=== PATIENT | female | born 1940 | race Caucasian/White ===

== ENCOUNTER → 2017-12-18 09:11 | Outpatient (CLI) | payer MEDICARE, SELFPAY ==
[2017-12-18 11:24] LABS: Absolute Lymphocyte Count 2.09 X10^3/ul (0.83-4.51); Absolute Neutrophil Count 4.2 X10^3/uL (2.0-7.7); Basophil# 0.02 X10^3/uL; Basophil% 0.3 % (0-1); Eosinophil# 0.42 X10^3/uL; Eosinophils% 5.7 % (0-5); Hemoglobin 11.7 g/dl (12.0-15.0); Lymphocyte # 2.09 X10^3/ul (4.0); Lymphocyte % 28.5 % (19-41); Mean Corp Hgb Conc 32.5 g/gl (32-36); Mean Corpuscular Hgb 32.4 pg (27.0-32.0); Mean Corpuscular Volume 99.7 fL (81-99); Mean Platelet Vol. 9.1 fl (6.2-12.0); Monocyte% 8.2 % (0-10); Neutrophil % 57.2 % (47-70); Platelet Count 256 K/mm3 (150-450); RBC Distribution Width CV 13.7 % (11.6-14.6); RBC Distribution Width SD 48.5 fl (35.1-43.9); Red Blood Count 3.61 M/mm3 (4.2-5.4); White Blood Count 7.3 K/mm3 (4.4-11.0)
[2017-12-18 11:26] LABS: POSITIVE COUNT NO; POSITIVE DIFFERENTIAL NO; POSITIVE MORPHOLOGY NO
[2017-12-18 11:51] LABS: ALB/GLOB Ratio 0.9 RATIO (0.9-2.4); AST(SGOT) 20 U/L (15-37); Alanine Aminotransfer ALT/SGPT 24 U/L (13-56); Albumin, Serum 3.7 g/dL (3.2-5.0); Alkaline Phosphatase 114 U/L (45-117); Anion Gap 9 (5-15); BUN 26 mg/dL (7-18); BUN/Creat Ratio 25.7 RATIO (10-20); Calcium,Total 8.9 mg/dL (8.5-10.1); Chloride 101 mmol/L (98-107); Creatinine, Serum 1.01 mg/dL (0.55-1.02); EST Glomerular Filtration Rate 57 mL/min (>60); Est Glom Filt Rate - Afr Amer 69 mL/min (>60); Globulin 3.9 g/dL (2.2-4.2); Glucose 123 mg/dL (70-110); Potassium 3.8 mmol/L (3.5-5.1); Protein, Total 7.6 g/dL (6.4-8.2); Sodium Level 137 mmol/L (136-145)
== END ==
PROVIDERS: Family Provider Family Medicine; PCP Family Medicine; Visit Provider Internal Medicine Rheumatology
DX: L40.59 Other psoriatic arthropathy (principal); L40.8 Other psoriasis; M17.0 Bilateral primary osteoarthritis of knee; M21.40 Flat foot [pes planus] (acquired), unspecified foot; I42.9 Cardiomyopathy, unspecified; I10 Essential (primary) hypertension; E78.5 Hyperlipidemia, unspecified; E03.9 Hypothyroidism, unspecified
CPT/HCPCS: 36415; 80053; 85025

== ENCOUNTER → 2018-03-20 16:08 | Outpatient (CLI) | payer MEDICARE, SELFPAY ==
[2018-03-20 16:37] LABS: Absolute Lymphocyte Count 2.24 X10^3/ul (0.83-4.51); Absolute Neutrophil Count 4.5 X10^3/uL (2.0-7.7); Basophil# 0.02 X10^3/uL; Basophil% 0.3 % (0-1); Eosinophil# 0.38 X10^3/uL; Eosinophils% 4.8 % (0-5); Hemoglobin 12.2 g/dl (12.0-15.0); Lymphocyte # 2.24 X10^3/ul (4.0); Lymphocyte % 28.5 % (19-41); Mean Corpuscular Hgb 32.4 pg (27.0-32.0); Mean Corpuscular Volume 98.1 fL (81-99); Mean Platelet Vol. 8.8 fl (6.2-12.0); Monocyte# 0.69 X10^3/uL; Monocyte% 8.8 % (0-10); Neutrophil # 4.51 X10^3/uL (2.7-7.7); Neutrophil % 57.5 % (47-70); POSITIVE COUNT NO; POSITIVE DIFFERENTIAL NO; POSITIVE MORPHOLOGY NO; Platelet Count 231 K/mm3 (150-450); RBC Distribution Width CV 13.3 % (11.6-14.6); RBC Distribution Width SD 47.8 fl (35.1-43.9); Red Blood Count 3.77 M/mm3 (4.2-5.4); White Blood Count 7.9 K/mm3 (4.4-11.0)
[2018-03-20 16:56] LABS: AST(SGOT) 25 U/L (15-37); Alanine Aminotransfer ALT/SGPT 27 U/L (13-56); Albumin, Serum 3.8 g/dL (3.2-5.0); Alkaline Phosphatase 109 U/L (45-117); Anion Gap 8 (5-15); BUN 30 mg/dL (7-18); BUN/Creat Ratio 26.5 RATIO (10-20); Calcium,Total 8.9 mg/dL (8.5-10.1); Chloride 98 mmol/L (98-107); Cholesterol 96 mg/dL (200); Creatinine, Serum 1.13 mg/dL (0.55-1.02); EST Glomerular Filtration Rate 50 mL/min (>60); Est Glom Filt Rate - Afr Amer 60 mL/min (>60); Globulin 3.8 g/dL (2.2-4.2); Glucose 91 mg/dL (74-106); High Density Lipoprotein 43 mg/dL; Protein, Total 7.6 g/dL (6.4-8.2); Sodium Level 136 mmol/L (136-145); Thyroid Stim Hormone (TSH) 1.88 uIU/mL (0.358-3.74); Triglycerides 61 mg/dL; Very Low Density Lipoprotein 12 mg/dL (5-40)
== END ==
PROVIDERS: Family Provider Family Medicine; PCP Family Medicine; Visit Provider Family Medicine
DX: E03.9 Hypothyroidism, unspecified (principal); E78.5 Hyperlipidemia, unspecified; I10 Essential (primary) hypertension; K92.1 Melena
CPT/HCPCS: 80053; 80061; 84443; 85025

== ENCOUNTER → 2018-09-25 10:28 | Outpatient (CLI) | payer MEDICARE, SELFPAY ==
--- NOTE | 2018-09-25 10:48 | RAD_ITS ---
STUDY: X-RAY - LUMBAR SPINE REASON FOR EXAM: Female, 78 years old. Low back pain TECHNIQUE: 2 view(s) of the lumbar spine were obtained. COMPARISON: None FINDINGS: Normal lumbar lordosis. There is a dextroscoliosis of the lumbar spine at the level of T12-L1. There is a normal alignment of the vertebrae. There is multilevel endplate spondylosis of the lumbar vertebrae. There is multi-level degenerative disc disease with multi-level disc space narrowing. There is multilevel vacuum phenomenon. There is neural foraminal narrowing at L5-S1. There is postoperative change in the right upper quadrant. There is partial visualization of a defibrillator overlying the heart. RAD/Lumbar Spine 2 or 3 Views IMPRESSION: Multilevel degenerative disc disease most significant at L5-S1. Mild dextroscoliosis. Electronically Signed: Leelee Sawyer MD at 0:13 EST Tel , Service support ,
== END ==
PROVIDERS: Family Provider Family Medicine; PCP Family Medicine; Referring Provider Anesthesiology Pain Medicine; Visit Provider Anesthesiology Pain Medicine
DX: M54.9 Dorsalgia, unspecified (principal)
CPT/HCPCS: 72100

== ENCOUNTER → 2018-10-09 11:12 | Outpatient (CLI) | payer MEDICARE, SELFPAY ==
[2018-07-13 09:42] VITALS: BMI 35.8
[2018-10-09 11:23] LABS: Bacteria 0 SEEN /hpf (None Seen); Mucous, Urine 0 SEEN /hpf (<or=2+); Red Blood Cells-Urine 0 SEEN /hpf (0-5); Squamous Epithelial Cells - UA 0 SEEN /hpf (5-10)
[2018-10-09 11:41] LABS: Color, Urine Yellow (Yellow); Glucose, Dipstick Normal (Normal); Ketone-Dipstick Negative (Negative); Leukocyte Esterase-Dipstick 25 /ul (Negative); Nitrite-Dipstick Negative (Negative); Occult Blood-Urine Negative /ul (Negative); Protein-Dipstick Negative (Negative); Specific Gravity, Urine 1.005 (1.002-1.030); Urine Bilirubin Dipstick Negative (Negative); Urine Clarity Clear (Clear); Urine Urobilinogen Normal (Normal)
[2018-10-09 11:48] LABS: Absolute Lymphocyte Count 2.35 X10^3/ul (0.83-4.51); Absolute Neutrophil Count 6.1 X10^3/uL (2.0-7.7); Basophil# 0.02 X10^3/uL; Basophil% 0.2 % (0-1); Eosinophil# 0.46 X10^3/uL; Eosinophils% 4.9 % (0-5); Hematocrit 37.1 % (37-47); Lymphocyte # 2.35 X10^3/ul (4.0); Lymphocyte % 24.8 % (19-41); Mean Corp Hgb Conc 32.3 g/gl (32-36); Mean Corpuscular Hgb 32.2 pg (27.0-32.0); Mean Corpuscular Volume 99.5 fL (81-99); Mean Platelet Vol. 8.9 fl (6.2-12.0); Monocyte# 0.51 X10^3/uL; Monocyte% 5.4 % (0-10); Neutrophil # 6.09 X10^3/uL (2.7-7.7); Neutrophil % 64.2 % (47-70); POSITIVE COUNT NO; POSITIVE DIFFERENTIAL NO; POSITIVE MORPHOLOGY NO; Platelet Count 266 K/mm3 (150-450); RBC Distribution Width CV 13.3 % (11.6-14.6); RBC Distribution Width SD 46.6 fl (35.1-43.9); Red Blood Count 3.73 M/mm3 (4.2-5.4); White Blood Cells 0-5 SEEN /hpf (0-5); White Blood Count 9.5 K/mm3 (4.4-11.0)
== END ==
PROVIDERS: PCP Family Medicine; Visit Provider Registered Nurse
DX: D72.829 Elevated white blood cell count, unspecified (principal)
CPT/HCPCS: 81001; 85025

== ENCOUNTER → 2018-12-04 12:47 | Outpatient (CLI) | payer MEDICARE, SELFPAY ==
[2018-10-31 14:16] VITALS: BMI 36.1
[2018-12-04 14:30] LABS: Anion Gap 6 (5-15); BUN 26 mg/dL (7-18); BUN/Creat Ratio 21.8 RATIO (10-20); Calcium,Total 8.8 mg/dL (8.5-10.1); Chloride 95 mmol/L (98-107); Creatinine, Serum 1.19 mg/dL (0.55-1.02); EST Glomerular Filtration Rate 47 mL/min (>60); Est Glom Filt Rate - Afr Amer 57 mL/min (>60); Glucose 98 mg/dL (74-106); Potassium 4.1 mmol/L (3.5-5.1); Sodium Level 131 mmol/L (136-145)
== END ==
PROVIDERS: Family Provider Family Medicine; PCP Family Medicine; Referring Provider Nurse Practitioner Family; Visit Provider Nurse Practitioner Family
DX: R06.02 Shortness of breath (principal); I43 Cardiomyopathy in diseases classified elsewhere
CPT/HCPCS: 36415; 80048

== ENCOUNTER → 2018-12-14 13:00 | Outpatient (CLI) | payer MEDICARE, SELFPAY ==
[2018-12-04 13:25] VITALS: BMI 36.1
--- NOTE | 2018-12-14 13:04 | ECHOD_ITS ---
Reason For Study: DYSPNEA/SOB Procedure This was a 2D Doppler, Color Flow transthoracic echocardiogram. Exam performed in department. Left Ventricle Normal LV size. Left ventricular systolic function is lower limits of normal. The estimated ejection fraction is 50 %. Stage 1 diastolic dysfunction. No regional wall motion abnormalities noted. Right Ventricle Normal RV size. ICD or pacer leads identified within the right ventricle. Normal systolic function. Atria Normal left atrium. Normal right atrium. Hypermobile atrial septum. Bubble contrast study negative for right to left interatrial shunt. Mitral Valve Normal mitral valve. Trivial eccentric mitral valve insufficiency. Tricuspid Valve Normal tricuspid valve. Mild (1+) tricuspid valve insufficiency. Pulmonary artery systolic pressure is 24 mmHg. Aortic Valve Trisinus/trileaflet aortic valve. Trivial eccentric aortic valve insufficiency. Pulmonic Valve The pulmonic valve is not well visualized. Great Vessels Calcified aortic root. The pulmonary artery is normal size. Normal inferior vena cava. Pericardium/Pleural No pericardial effusion. Medication 22 gauge I.V. with prn adaptor inserted into right arm. Performed a rapid injection of agitated mix of 9 cc saline and 1cc air to assess for atrial septal defect. MMode/2D Measurements & Calculations LVIDd: 5.5 cm IVSd: 1.0 cm Ao root diam: 3.9 cm LVIDs: 3.8 cm LVPWd: 1.00 cm RVDd: 3.3 cm FS: 31.1 % LAV(MOD-bp): 53.5 ml LA A4 area: 20.6 cm2 LA dimension(2D): 4.2 cm LAV(MOD-bp) Indexed: 27.5 ml/m2 LAV(MOD-sp2): 44.5 ml LAV(MOD-sp4): 63.0 ml RA A4 area: 15.6 cm2 Doppler Measurements & Calculations MV E max romario: 59.1 cm/sec Lat Peak E' Romario: 8.1 cm/sec Med Peak E' Romario: 6.1 cm/sec MV A max romario: 114.1 cm/sec E/E' lat: 7.3 E/E' med: 9.7 MV E/A: 0.52 Ao V2 max: 172.0 cm/sec AI max romario: 311.0 cm/sec LV V1 max: 128.1 cm/sec Ao max P.8 mmHg AI max P.7 mmHg LV V1 max P.6 mmHg AI dec slope: 187.5 cm/sec2 AI P1/2t: 485.9 msec PA V2 max: 97.9 cm/sec TR max romario: 225.3 cm/sec TR max P.3 mmHg Interpretation Summary Normal LV size. Left ventricular systolic function is lower limits of normal. The estimated ejection fraction is 50 %. Stage 1 diastolic dysfunction. Hypermobile atrial septum. Bubble contrast study negative for right to left interatrial shunt. Compared to previous study, the left ventricular systolic function is the same.. Ordering Physician: Jose Nunez Referring Physician: ANITA Barry M.D. Performed By: Florence Reagan RDCS, RVT
== END ==
PROVIDERS: Family Provider Family Medicine; PCP Family Medicine; Referring Provider Internal Medicine Cardiovascular Disease; Visit Provider Internal Medicine Cardiovascular Disease
DX: I42.0 Dilated cardiomyopathy (principal); Z95.810 Presence of automatic (implantable) cardiac defibrillator; I10 Essential (primary) hypertension
CPT/HCPCS: 93306; A4216

== ENCOUNTER → 2018-12-24 14:56 | Outpatient (CLI) | payer MEDICARE, SELFPAY ==
[2018-12-04 13:25] VITALS: BMI 36.1
[2018-12-24 15:56] LABS: Anion Gap 12 (5-15); BUN 25 mg/dL (7-18); BUN/Creat Ratio 22.1 RATIO (10-20); Chloride 97 mmol/L (98-107); Creatinine, Serum 1.13 mg/dL (0.55-1.02); EST Glomerular Filtration Rate 50 mL/min (>60); Est Glom Filt Rate - Afr Amer 60 mL/min (>60); Glucose 95 mg/dL (74-106); Potassium 4.3 mmol/L (3.5-5.1); Sodium Level 135 mmol/L (136-145)
== END ==
PROVIDERS: Family Provider Family Medicine; PCP Family Medicine; Referring Provider Nurse Practitioner Family; Visit Provider Nurse Practitioner Family
DX: I50.20 Unspecified systolic (congestive) heart failure (principal); I43 Cardiomyopathy in diseases classified elsewhere
CPT/HCPCS: 36415; 80048

== ENCOUNTER → 2019-01-14 13:45 | Outpatient (CLI) | payer MEDICARE, SELFPAY ==
[2019-01-14 13:02] VITALS: BMI 35.4
[2019-01-14 15:22] LABS: Anion Gap 10 (5-15); BUN 29 mg/dL (7-18); BUN/Creat Ratio 22.3 RATIO (10-20); Calcium,Total 8.8 mg/dL (8.5-10.1); Chloride 96 mmol/L (98-107); EST Glomerular Filtration Rate 42 mL/min (>60); Est Glom Filt Rate - Afr Amer 51 mL/min (>60); Glucose 89 mg/dL (74-106); Potassium 4.3 mmol/L (3.5-5.1); Sodium Level 135 mmol/L (136-145)
== END ==
PROVIDERS: Family Provider Family Medicine; PCP Family Medicine; Referring Provider Nurse Practitioner Family; Visit Provider Nurse Practitioner Family
DX: I42.0 Dilated cardiomyopathy (principal); I10 Essential (primary) hypertension
CPT/HCPCS: 36415; 80048

== ENCOUNTER → 2019-02-09 11:41 | Outpatient (CLI) | payer MEDICARE, SELFPAY ==
[2019-01-14 13:02] VITALS: BMI 35.4
[2019-02-09 11:46] LABS: Mucous, Urine 0 SEEN /hpf (<or=2+); Red Blood Cells-Urine 0 SEEN /hpf (0-5)
[2019-02-09 12:58] LABS: Color, Urine Yellow (Yellow); Glucose, Dipstick Normal (Normal); Ketone-Dipstick Negative (Negative); Leukocyte Esterase-Dipstick 500 /ul (Negative); Nitrite-Dipstick Negative (Negative); Occult Blood-Urine 10 /ul (Negative); Protein-Dipstick Negative (Negative); Urine Bilirubin Dipstick Negative (Negative); Urine Clarity Clear (Clear); Urine Urobilinogen Normal (Normal)
[2019-02-09 12:59] LABS: White Blood Cells 10-25 SEEN /hpf (0-5)
[2019-02-09 13:00] LABS: Bacteria 1+ /hpf (None Seen); Squamous Epithelial Cells - UA 0-5 SEEN /hpf (5-10)
== END ==
PROVIDERS: Family Provider Family Medicine; PCP Family Medicine; Referring Provider Family Medicine; Visit Provider Family Medicine
DX: R33.9 Retention of urine, unspecified (principal)
CPT/HCPCS: 81001

== ENCOUNTER → 2019-04-25 | Outpatient (CLI) | payer MEDICARE, SELFPAY ==
[2018-10-31 14:16] VITALS: BMI 36.1
[2019-01-14 13:02] VITALS: BMI 35.4
--- NOTE | 2019-04-25 09:32 | BI_ITS ---
MAMMOGRAPHY - BILATERAL DIAGNOSTIC REASON FOR EXAM: Female, 78 years old. Recurrent breast carcinoma. PERTINENT HISTORY: Personal history of breast cancer. Prior left lumpectomy with radiation treatment. Mother with breast cancer. TECHNIQUE: Digital bilateral breast seferino (3D mammographic acquisition) in the CC and MLO projections. 2-D mediolateral oblique (MLO) and craniocaudad (CC) views of both breasts were obtained. CAD: Full Field Digital Mammography with Computer Added Detection was performed. COMPARISON: Comparison is made with prior abdomen examination dated October 04, 2018 and October 02, 2017. FINDINGS: Breast Composition: There are scattered areas of fibroglandular density. There are no dominant masses or suspicious calcifications. The patient is status post lumpectomy with surgical clips in the axillary region of the left breast. The left breast is smaller than the right. This is unchanged. Once again, a battery pack from a pacemaker is seen in the left axillary region. No other significant abnormalities are identified. There has been no significant change since the prior study. BI/DIAG MAMM W/CAD, BILGIANNI IMPRESSION: Stable bilateral diagnostic mammogram. One year follow-up recommended. (A) ASSESSMENT CATEGORY: BIRADS Category 2: Benign. A letter regarding these results will be sent to the patient by the facility within 30 days. Approximately 10% of breast cancers are not detected by mammography. A normal mammogram should not delay biopsy of a clinically suspicious abnormality. Electronically Signed: Cesar Wing, at 11:29 EDT , Service support ,
[2019-04-25 11:07] LABS: Absolute Lymphocyte Count 2.06 X10^3/ul (0.83-4.51); Absolute Neutrophil Count 4.4 X10^3/uL (2.0-7.7); Basophil# 0.02 X10^3/uL; Basophil% 0.3 % (0-1); Eosinophil# 0.23 X10^3/uL; Eosinophils% 3.1 % (0-5); Hematocrit 34.4 % (37-47); Hemoglobin 11.4 g/dl (12.0-15.0); Lymphocyte # 2.06 X10^3/ul (4.0); Lymphocyte % 27.5 % (19-41); Mean Corp Hgb Conc 33.1 g/gl (32-36); Mean Corpuscular Hgb 31.8 pg (27.0-32.0); Mean Corpuscular Volume 96.1 fL (81-99); Mean Platelet Vol. 8.5 fl (6.2-12.0); Monocyte# 0.74 X10^3/uL; Monocyte% 9.9 % (0-10); Neutrophil % 58.8 % (47-70); Platelet Count 271 K/mm3 (150-450); RBC Distribution Width SD 46.7 fl (35.1-43.9); Red Blood Count 3.58 M/mm3 (4.2-5.4); White Blood Count 7.5 K/mm3 (4.4-11.0)
[2019-04-25 11:09] LABS: POSITIVE COUNT NO; POSITIVE DIFFERENTIAL NO; POSITIVE MORPHOLOGY NO
[2019-04-25 11:42] LABS: AST(SGOT) 21 U/L (15-37); Alanine Aminotransfer ALT/SGPT 27 U/L (13-56); Albumin, Serum 3.7 g/dL (3.2-5.0); Alkaline Phosphatase 107 U/L (45-117); Anion Gap 10 (5-15); BUN 38 mg/dL (7-18); BUN/Creat Ratio 29.2 RATIO (10-20); Calcium,Total 8.8 mg/dL (8.5-10.1); Chloride 97 mmol/L (98-107); EST Glomerular Filtration Rate 42 mL/min (>60); Est Glom Filt Rate - Afr Amer 51 mL/min (>60); Globulin 3.8 g/dL (2.2-4.2); Glucose 115 mg/dL (74-106); LDH 243 U/L (84-246); Potassium 4.1 mmol/L (3.5-5.1); Protein, Total 7.5 g/dL (6.4-8.2); Sodium Level 133 mmol/L (136-145)
[2019-04-25 18:14] LABS: Xtra Tube EP Lab EXTRA TUBE
[2019-04-26 10:48] LABS: HSV 1 IgG 4.75 index (0.00-0.90); HSV 2 IgG < 0.91 index (0.00-0.90)
[2019-04-30 14:07] LABS: Miscellaneous Lab Procedure A
== END | disposition home or self-care (01) ==
PROVIDERS: Family Provider Family Medicine; PCP Family Medicine; Referring Provider Internal Medicine Medical Oncology; Visit Provider Internal Medicine Medical Oncology
DX: C50.912 Malignant neoplasm of unspecified site of left female breast (principal); R92.2 Inconclusive mammogram; Z85.3 Personal history of malignant neoplasm of breast
CPT/HCPCS: 36415; 77062; 77066; 80053; 83615; 85025; 86695; 86696; G0279

== ENCOUNTER → 2019-06-06 | Outpatient (CLI) | payer MEDICARE, SELFPAY ==
[2019-05-06 14:58] VITALS: BMI 35.3
[2019-06-06 15:03] LABS: Thyroid Stim Hormone (TSH) 1.77 uIU/mL (0.358-3.74)
== END | disposition home or self-care (01) ==
LOC: LABSPEC 14:29
PROVIDERS: Family Provider Family Medicine; PCP Family Medicine; Referring Provider Family Medicine; Visit Provider Family Medicine
DX: E03.9 Hypothyroidism, unspecified (principal)
CPT/HCPCS: 84443

== ENCOUNTER 2019-06-18 20:18 | Emergency (ER) | payer MEDICARE, SELFPAY ==
[2019-05-06 14:58] VITALS: BMI 35.3
[2019-06-18 20:20] VITALS: BP 128/74; PULSE 82; RESP 16; TEMP 36.8; O2SAT 98; BMI 35.9
--- NOTE | 2019-06-18 21:52 | ED.VIS.GEN ---
History of Present Illness Chief Complaint: Lower Extremity Injury Informant: Patient Onset: Today Context: Sudden Onset Timing: Continuous Quality: Pain Location: Lateral right foot Current Severity: Mild Maximum Severity: Moderate Worsened by: Palpation and weightbearing Relieved by: Nothing Associated Symptoms: No associated symptoms Narrative: Patient elderly woman was walking. She twisted her foot. She complains of pain laterally. There is no history of prior injury. She denies paresthesia, anesthesia motor weakness. She is not on an anticoagulant. Prior similar symptoms: No Recent Illness/Hospitalization: No - Past Medical History (1) Automatic implantable cardiac defibrillator in situ Status: Chronic Comment: Implant 01/13/2011, reimplant post breast cancer therapy 08/22/2014. (2) COPD (chronic obstructive pulmonary disease) Status: Chronic (3) Cardiomyopathy in other diseases classified elsewhere Status: Chronic (4) HLD (hyperlipidemia) Status: Chronic (5) HTN (hypertension) Status: Chronic (6) Hypothyroidism, iatrogenic Status: Chronic (7) Nonrheumatic mitral (valve) insufficiency Status: Chronic (8) Paroxysmal supraventricular tachycardia Status: Chronic (9) Recurrent cancer of left breast Status: Chronic (10) Secondary pulmonary arterial hypertension Status: Chronic (11) Systolic congestive heart failure Status: Chronic Past Medical History - Allergies and Home Meds Allergies/Adverse Reactions: Allergies cephalexin Allergy (Severe, Verified 05/06/19 14:58) Rash paclitaxel [From Taxol] Allergy (Severe, Verified 05/06/19 14:58) PASS OUT amoxicillin Adverse Reaction (Severe, Verified 05/06/19 14:58) C-DIFF TAPE Allergy (Severe, Uncoded 05/06/19 14:58) RASH, ITCH Primary Care Physician: Michi Barry III, MD [Primary Care Provider] - Prior records reviewed: Yes Surgical History: - Lives: Spouse/ Significant Other Smoking Status: Never smoker Alcohol: None Drugs: None - Family History Maternal Family History: Family History (Last Reviewed 05/06/19 @ 14:53 by Tracy Escamilla) Mother CHF (congestive heart failure) Brother CHF (congestive heart failure) Hx of CABG Brother CAD (coronary artery disease) Daughter Asthma Family History: Reports: Diabetes, Heart Disease Paternal Family History: Family History (Last Reviewed 05/06/19 @ 14:53 by Tracy Escamilla) Mother CHF (congestive heart failure) Brother CHF (congestive heart failure) Hx of CABG Brother CAD (coronary artery disease) Daughter Asthma Family History: Reports: No pertinent history Review of Systems Musculoskeletal: Reports: Swelling, Extremity Pain. Denies: Myalgias, Arthralgias, Neck pain, Back pain Skin: Denies: Rash, Wounds Neurological: Denies: Weakness, Parasthesia, Numbness Hematologic: Denies: Easy bruising, Easy bleeding Physical Exam Vital Signs/Narrative: Vital Signs Temp Pulse Resp BP Pulse Ox 06/18/19 20:20 98.3 F 82 16 128/74 H 98 Inital Vital Signs reviewed: Yes General: Well nourished, Well developed, No Acute Distress Head: Normocephalic, Atraumatic Eyes: Perrl, EOMI. Negative for: Pale conjunctiva, Scleral icterus, - ENT: Moist mucous membranes, No rhinorrhea Cardiovascular: Regular rate, Regular rhythm Respiratory: No distress Extremities: Tenderness, - - There is no pain to palpation over the lateral medial malleolus. No laxity with drawer testing. There is pain to palpation base of fifth metatarsal. DP and PT pulses are palpable. No other injury noted. Skin: Normal color, No rash, Trauma - Contusion/hematoma mid lateral right foot Neurological: Alert, Oriented x3, Cranial nerves II-XII grossly intact, Normal Strength, Normal Sensation Psychological: Normal affect, Normal Mood Diagnostic/Tx/Re-eval Chest X-Ray - ED: Read by ED Physician, - - Three-view x-ray of the right foot reveals no fracture. - Medical Decision Making X-ray of the right foot was obtained to assess for strain versus fracture base of the fifth metatarsal. Since there is no evidence of fracture patient has a strain of her peroneal brevis tendon. ED Disposition - Plan for ED Patient: Disposition: Home or Assisted Living Diagnosis: Strain of tendon of foot and ankle Instructions: Sprain Foot Prescriptions: Hydrocodone Bitart/Apap 5-325 [[place] 5MG-325MG] 1 tablet PO Q6H PRN PRN 3 Days #10 tablet PRN Reason: Pain Transmission Status: Sent to [facility] Referrals: Michi Barry III, MD [Primary Care Provider] - 1 Week Additional Instructions: Your prescription was electronically transmitted to pharmacy of choice
[2019-06-18] MEDS: HYDROcodone Bitartrate/Apap 5/325 Tablet PO (22:00)
--- NOTE | 2019-06-18 22:05 | RAD_ITS ---
STUDY: X-RAY - RIGHT FOOT CLINICAL: Female, 78 years old. Right foot pain TECHNIQUE: 3 view(s) of the foot. COMPARISON: None. FINDINGS: Normal talus, calcaneus, and tarsal bones. Moderate calcaneal spurs. Normal visualized subtalar, talonavicular, calcaneocuboid, tarsal and tarsometatarsal articulations. Normal metatarsi. There is degenerative arthrosis of the metatarsophalangeal joint of the hallux . Normal tibial and fibular sesamoid bones. Normal interphalangeal joint of the great toe. Normal phalanges of the great toe. Normal second through fifth metatarsophalangeal joints. Normal interphalangeal joints and phalanges of the lesser toes. The soft tissue structures are unremarkable. RAD/Foot min 3 Views IMPRESSION: Bunion and heel spurs Electronically Signed: Alex Grubbs MD at 22:29 EDT , Service support ,
[2019-06-18 22:55] VITALS: BP 125/68; PULSE 86; RESP 16; O2SAT 99
--- NOTE | 2019-06-18 23:13 | ED.VISSUMM ---
- ER Visit Summary Date of Service: 06/18/19 Chief Complaint: [] History of Present Illness: The patient is a 78 F [] Physical Examination: [] Test Results: [] Emergency Department Course and Treatment: [] Treatment Plan: [] Disposition: [] Impression: [] This note was generated with [employer] dictation software. It may contain incorrect words, spelling, and punctuation that were not noted in review of the chart prior to signing ED Disposition - Plan for ED Patient: Disposition: Home or Assisted Living Diagnosis: Strain of tendon of foot and ankle Instructions: Sprain Foot Prescriptions: Hydrocodone Bitart/Apap 5-325 [[place] 5MG-325MG] 1 tab PO Q6H PRN PRN 3 Days #10 tab PRN Reason: Pain Transmission Status: Received by [facility] Hydrocodone Bitart/Apap 5-325 [[place] 5MG-325MG] 1 tab PO Q6H PRN PRN 3 Days #2 tab PRN Reason: Pain Prescription Printed Referrals: Michi Barry III, MD [Primary Care Provider] - 1 Week Additional Instructions: Your prescription was electronically transmitted to pharmacy of choice
== END 2019-06-18 23:19 | disposition home or self-care (01) ==
PROVIDERS: Emergency Provider Emergency Medicine; Family Provider Family Medicine; PCP Family Medicine
DX: S96.911A Strain of unspecified muscle and tendon at ankle and foot level, right foot, initial encounter (principal); X50.1XXA Overexertion from prolonged static or awkward postures, initial encounter; Y93.01 Activity, walking, marching and hiking; Y92.9 Unspecified place or not applicable; J44.9 Chronic obstructive pulmonary disease, unspecified; I43 Cardiomyopathy in diseases classified elsewhere; E78.5 Hyperlipidemia, unspecified; E03.2 Hypothyroidism due to medicaments and other exogenous substances; I34.0 Nonrheumatic mitral (valve) insufficiency; I47.1 Supraventricular tachycardia; I27.21 Secondary pulmonary arterial hypertension; I11.0 Hypertensive heart disease with heart failure; I50.20 Unspecified systolic (congestive) heart failure; Z85.3 Personal history of malignant neoplasm of breast; Z95.810 Presence of automatic (implantable) cardiac defibrillator; Z79.82 Long term (current) use of aspirin; Z79.899 Other long term (current) drug therapy
CPT/HCPCS: 73630; 99283

== ENCOUNTER → 2019-07-29 09:15 | Outpatient (CLI) | payer MEDICARE, SELFPAY ==
[2019-07-19 09:54] VITALS: BMI 35.4
[2019-07-29 10:33] LABS: AST(SGOT) 22 U/L (15-37); Alanine Aminotransfer ALT/SGPT 26 U/L (13-56); Albumin, Serum 3.7 g/dL (3.2-5.0); Alkaline Phosphatase 115 U/L (45-117); Bilirubin, Direct 0.17 mg/dL (0.00-0.30); Cholesterol 116 mg/dL (200); High Density Lipoprotein 43 mg/dL; Protein, Total 7.7 g/dL (6.4-8.2); Triglycerides 92 mg/dL; Very Low Density Lipoprotein 18 mg/dL (5-40)
== END ==
PROVIDERS: Family Provider Family Medicine; PCP Family Medicine; Referring Provider Internal Medicine Cardiovascular Disease; Visit Provider Internal Medicine Cardiovascular Disease
DX: E78.5 Hyperlipidemia, unspecified (principal)
CPT/HCPCS: 36415; 80061; 80076

== ENCOUNTER → 2019-08-03 07:00 | Outpatient (CLI) | payer MEDICARE, SELFPAY ==
[2019-07-19 09:54] VITALS: BMI 35.4
--- NOTE | 2019-08-03 06:50 | CT_ITS ---
STUDY: CT RIGHT KNEE WITHOUT CONTRAST REASON FOR EXAM: Female, 79 years old. Arthritis, knee pain RADIATION DOSAGE (If Supplied By Facility): CTDIvol = ( 15.35 ) mGy, DLP = ( 357.60 ) mGycm TECHNIQUE: Transaxial CT imaging of the knee was performed. Coronal and sagittal images were reformatted. Individualized dose optimization techniques were used for this CT. COMPARISON: None. FINDINGS: There is are degenerative subcortical cyst of the tibial plateau including at the midline tibial eminence. Moderate joint space narrowing with medial extrusion of meniscus. Normal lateral femoral condyle and lateral tibial plateau. There is chondrocalcinosis of the lateral compartment. Degenerative narrowing of the patellofemoral joint with subchondral cysts of the patella. Normal proximal tibiofibular articulation. There is no joint effusion. The quadriceps tendon is grossly normal. The patellar tendon is grossly normal. Normal Hoffa's fat pad. No joint effusion. CT/Extremity Lower without Contra IMPRESSION: Degenerative changes, as above. No erosive changes. No joint effusion. Electronically Signed: Jaime Quiñonez MD ([place]) at 18:05 EDT , Service support ,
== END ==
PROVIDERS: Family Provider Family Medicine; PCP Family Medicine; Referring Provider Physician Assistant
DX: M17.11 Unilateral primary osteoarthritis, right knee (principal)
CPT/HCPCS: 73700

== ENCOUNTER → 2019-11-15 16:19 | Outpatient (CLI) | payer MEDICARE, SELFPAY ==
[2019-10-28 13:47] VITALS: BMI 35.2
== END ==
PROVIDERS: Family Provider Family Medicine; PCP Family Medicine; Referring Provider Nurse Practitioner Primary Care; Visit Provider Nurse Practitioner Primary Care
DX: R19.7 Diarrhea, unspecified (principal)
CPT/HCPCS: 87506

== ENCOUNTER 2019-12-25 10:00 | Outpatient (RCR) | payer MEDICARE, SELFPAY ==
[2019-10-28 13:47] VITALS: BMI 35.2
--- NOTE | 2019-11-26 11:55 | HP.PTEVAL ---
Patient's Visit Information DESIRAE BRYANT is a 79 year old F referred to Physical Therapy by Tho Greene PA-C with a diagnosis of Lumbar DDD, scoliosis. Date of Evaluation: 11/26/19 Physical Therapist: RUBÉN Jama - Visit Plan Frequency: 2x /Week Duration: 4 Weeks Plan: Pt does not like water and wants to go back to land if after a few visits she does not tolerate the water..... 2X/ week for 4 weeks for AT for core stability, B hip strength, postural exercises, L-spine decompression (Watch UE for 2 B bad shoulders (R needs replaced)) with HEP. If pt does not like water she can transition back to land based therapy - Subjective Findings: In April she fell and twisted her ankle and then her R knee started to hurt and then her R hip started to hurt and the Dr took and x-ray of her R knee and said he thought her pain was coming from her back. She also has pain in B shoulders and they want to do a TSR on the R. She has had back trouble for years that is getting worse and she has shoulder blade and neck pain and B feet are tingling and that has been there for years. She can not stand for more than 30 min and then she needs to lay down on a cold back and lays for 15 min and can get back up. She can do stairs but she is prone to falling and has to hang on to railing. - Pain back pain Pain Intensity (Out of 10): 5 R hip pain Pain Intensity (Out of 10): 2 R knee pain Pain Intensity (Out of 10): 3 - Objective Gait: Walks with decreased hip strength,. Trunk AROM: flex 75%, Ext 50%, SB B 75%. LE MMT: B hip abd 4-/5, B HIP FLEX 4-/5, Bridges 3/4 normal ROM, B knee flex and ext 4/5. Pt had a hard time walking on heels and toes. - Goals Goal 1:: I HEP Goal Time Frame: 4-6 Weeks Goal 2:: Increase LE strength by 1/2 muscle grade ( at time of eval: LE MMT: B hip abd 4-/5, B HIP FLEX 4-/5, Bridges 3/4 normal ROM, B knee flex and ext 4/5) Goal Time Frame: 4-6 Weeks Goal 3:: Decrease overall pain by 50% Goal Time Frame: 4-6 Weeks - Rehabilitation Potential Rehabilitation Potential: Good - Anticipated Interventions Patient/Client Instruction: Educate patient on: Condition For the Purpose of:: To decrease pain, To increase ROM, To improve nutrient delivery to tissue, To improve muscle performance and motor function, To improve ability to perform ADL's, To increase tolerance to activity/condition/position, To improve performance and independence with ADL's, To decrease level of supervision to perform tasks, To improve ability of physical actions for home/community/work/leisure, To improve gait and locomotor functions, To improve balance Therapeutic Exercise to Include: Strength training, Postural training, Gait and locomotor training, In an aquatic setting, Active ROM, Dynamic Lumbar Stabilization For the Purpose of:: To decrease pain, To increase ROM, To improve nutrient delivery to tissue, To improve muscle performance and motor function, To improve ability to perform ADL's, To increase tolerance to activity/condition/position, To improve performance and independence with ADL's, To improve gait and locomotor functions, To improve health of tissue, To decrease soft tissue restriction Thank you for the opportunity to evaluate your patient. For Medicare and Medicare HMO plans, please review the plan of care and approve it. It will need to be FAXED BACK to us at [phone] for Medicare purposes. For Medicare only, by signing this I certify the plan of care. Please let me know if there are questions or concerns regarding this plan of care. Physician Signature: Date:
--- NOTE | 2019-12-25 10:18 | HP.PTDCSUM ---
HP - PT D/C Summary It has been my pleasure to treat DESIRAE BRYANT under orders from Tho Greene PA-C, for the diagnosis of Lumbar DDD, scoliosis for a total of 5 visit(s). Discharge Date: 12/25/19 Please see the following information for a summary of their discharge status. 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 Most of the time the back is not too much better.. She is seeing a Bowl Dr. Pt reports that it is no use scheudleing PT now because she does not know when her bowls will act up. Pt wants PT to be discharged until she gets her bowls figured out. Neck pain 03/29. - Pain back pain Pain Intensity (Out of 10): 3 R hip pain Pain Intensity (Out of 10): 0 R knee pain Pain Intensity (Out of 10): 5 - Overall Improvement % Improvement: 0 - Objective Objective/Function: LE MMT: B hip abd 4-/5, B HIP FLEX 4-/5, Bridges 3/4 normal ROM, B knee flex and ext 4/5 - Goals Goal 1:: I HEP Goal Progress: Not Progressing Goal 2:: Increase LE strength by 1/2 muscle grade ( at time of eval: LE MMT: B hip abd 4-/5, B HIP FLEX 4-/5, Bridges 3/4 normal ROM, B knee flex and ext 4/5) Goal Progress: Not Progressing Goal 3:: Decrease overall pain by 50% Goal Progress: Not Progressing - Plan Plan: DC PT due to pt having IBS issues that they are investigating - D/C Information Discharge Comments: DC PT If there are questions or concerns regarding this patient's physical therapy, please feel free to call me at [phone]. Thank you for the referral of this patient. Sincerely, Maryann Oneal, MPT
== END 2019-12-25 19:00 | disposition home or self-care (01) ==
LOC: PT 10:00
PROVIDERS: Family Provider Family Medicine; PCP Family Medicine; Referring Provider Physician Assistant Surgical; Visit Provider Physician Assistant Surgical
DX: M51.36 Other intervertebral disc degeneration, lumbar region (principal); M41.9 Scoliosis, unspecified
CPT/HCPCS: 97113; 97161; 97530

== ENCOUNTER → 2020-04-17 09:54 | Outpatient (CLI) | payer MEDICARE, SELFPAY ==
[2019-10-28 13:47] VITALS: BMI 35.2
[2020-04-17 12:09] LABS: Anion Gap 7 (5-15); BUN 17 mg/dL (7-18); BUN/Creat Ratio 15.3 RATIO (10-20); Calcium,Total 8.9 mg/dL (8.5-10.1); Chloride 101 mmol/L (98-107); Creatinine, Serum 1.11 mg/dL (0.55-1.02); EST Glomerular Filtration Rate 51 mL/min (>60); Est Glom Filt Rate - Afr Amer 61 mL/min (>60); Glucose 140 mg/dL (74-106); Potassium 3.9 mmol/L (3.5-5.1); Sodium Level 136 mmol/L (136-145)
== END ==
PROVIDERS: PCP Family Medicine; Referring Provider Physician Assistant Medical; Visit Provider Physician Assistant Medical
DX: I11.0 Hypertensive heart disease with heart failure (principal); I50.42 Chronic combined systolic (congestive) and diastolic (congestive) heart failure; E78.5 Hyperlipidemia, unspecified; I42.8 Other cardiomyopathies; I47.1 Supraventricular tachycardia
CPT/HCPCS: 36415; 80048

== ENCOUNTER → 2020-04-27 | Outpatient (CLI) | payer MEDICARE, SELFPAY ==
[2019-10-28 13:47] VITALS: BMI 35.2
--- NOTE | 2020-04-27 10:22 | BI_ITS ---
MAMMOGRAPHY - BILATERAL SCREENING REASON FOR EXAM: Female, 79 years old. Routine annual screening examination. PERTINENT HISTORY: Personal history of breast cancer. Mother with breast cancer. Aunt with breast cancer. TECHNIQUE: Digital bilateral breast temi (3D mammographic acquisition) in the CC and MLO projections. 2-D mediolateral oblique (MLO) and craniocaudad (CC) views of both breasts were obtained. CAD: Full Field Digital Mammography with Computer Added Detection was performed. COMPARISON: Comparison is made with prior examination dated October 04, 2018 and April 25, 2019. FINDINGS: Breast Composition: There are scattered areas of fibroglandular density. There are no dominant masses or suspicious calcifications. The patient is status post left lumpectomy with the postsurgical changes in the left breast. The left breast is smaller than the right. A battery pack from a pacemaker is once again seen in the left axillary region. No other significant abnormalities are identified. There has been no significant change since the prior study. BI/SCREEN MAMM (CAD) W/TEMI BILAT IMPRESSION: Stable bilateral screening mammogram. Yearly follow-up mammogram recommended. (A) ASSESSMENT CATEGORY: BIRADS Category 2: Benign. A letter regarding these results will be sent to the patient by the facility within 30 days. Approximately 10% of breast cancers are not detected by mammography. A normal mammogram should not delay biopsy of a clinically suspicious abnormality. [id number] Electronically Signed: Cesar Wing, at 11:38 EDT , Service support ,
== END | disposition home or self-care (01) ==
PROVIDERS: PCP Family Medicine; Referring Provider Internal Medicine Medical Oncology; Visit Provider Internal Medicine Medical Oncology
DX: Z12.31 Encounter for screening mammogram for malignant neoplasm of breast (principal); Z85.3 Personal history of malignant neoplasm of breast
CPT/HCPCS: 77063; 77067

== ENCOUNTER 2020-05-08 10:30 | Outpatient (RCR) | payer MEDICARE, SELFPAY ==
[2019-10-28 13:47] VITALS: BMI 35.2
--- NOTE | 2020-04-09 09:47 | HP.PTEVAL ---
Patient's Visit Information DESIRAE BRYANT is a 79 year old F referred to Physical Therapy by ALLYSON Carcamo with a diagnosis of LUMBAR DDD, SPONDYLOSIS, RADICULOPATHY, STENOSIS & FACET ARTHROPATHY. Date of Evaluation: 04/09/20 Physical Therapist: Rachel Valderrama PT, Cert MDT - Visit Plan Frequency: 2-3x /Week Duration: 4-6 Weeks Plan: *PACEMAKER*. PARASPINAL STM EACH VISIT. POSTURE CORRECTION/STRENGTHENING, INSTRUCTION IN APPROPRIATE BODY MECHANICS AND ACTIVITY MODIFICATIONS. DLS STARTING WITH A NEUTRAL SPINE PROGRESSING ROM TOLERATED. AGUSTINA LE ROM, STRETCHING AND STRENGTHENING. HEP INSTRUCTION. - Subjective Work/Leisure: RETIRED. Disability: NO. Present symptoms: LEFT LOW BACK PAIN THAT GOES UP INTO AGUSTINA SHOULDER BLADES AND NECK. IT DOESN'T GO DOWN MY LEGS. AGUSTINA TOE NUMBNESS FOR YEARS AND YEARS. Present since: CHRONIC - MANY YEARS. Pain Scale: WORST 8/10, LEAST 3/10. Currently: 3/10. Commenced as a result of: NO APPARENT REASON - THEY ALWAYS TELL ME I AM FULL OF ARTHRITIS. Symptoms at onset: LEFT BACK. Worse: SWEEPING, MOPPING, STOOPING OVER, LIFTING, STANDING, WALKING. Better: LYING DOWN WITH ICE PACK. Disturbed sleep: YES. Previous history/Previous treatment: PHYSICAL THERAPY OFF AND ON. CHIROPRACTOR LAST YEAR, NO BACK SURGERY, HAS HAD LUMBAR ABIMAEL'S WITH THE LAST ONE BEING DEC 2019 - DIDN'T HELP FOR MORE THAN MAYBE 3 DAYS. Coughing/sneezing/straining: NEGATIVE. Gait: NO ASSISTIVE DEVICES. DISTANCE LIMITED AT TIMES DUE TO PAIIN. Difficulty initiating urinatin: NO. Accidents: YES - ABOUT 50 YEARS AGO WITH RIGHT UE INJURY. Unexplained weight loss: NO. Imaging: RECENT LUMBAR X-RAYS - THEY KEEP TELLING ME I AM FULL OF ARTHRITIS. NO SURGERY RECOMMENDED. PMH: *PACEMAKER*, PATIENT REPORTS SHE HAS HAD BREAST CANCER 3 TIMES - 1994, 2007, 2013. HAS HAD CHEMO AND RADIATION. NOW HAS CHF, INTESTINAL PROBLEMS, HEADACHES, SINUS PROBLEMS. LEFT TKR. RIGHT KNEE ARTHRITIS. AGUSTINA CTR. RIGHT SHLD SURGERY - SHLD REPLACEMENT RECOMMENDED AT THIS TIME. HYPOTHYROIDISM. UNREPAIRED LEFT SHLD TEAR. OTHER: PATIENT REPORTS SHE HAS DONE WATER THERAPY IN THE PAST BUT SHE DOESN'T LIKE IT. - Objective Sitting/Standing Posture: POOR. SCOLIOSIS. Lordosis: REDUCED. Active Correction of posture: BETTER. Other Observations: INDEP GAIT INTO PT WITHOUT ANY ASSISTIVE DEVICES. ABLE TO TRANSFER INDEP'LY FROM SIT TO STAND WITHOUT UE ASSIST. Motor deficit: RIGHT LE: HIP 4/5, KNEE 4/5, ANKLE 5/5. LEFT LE: HIP 4-/5, KNEE EXT 4-/5, KNEE FLEX 4/5, ANKLE 5/5. Sensory deficit: LLE HYPERSENSATIVIY WITH TESTING COMPARED TO RIGHT. ROM deficit: TIGHT AGUSTINA HIP FLEXORS, HS'S AND GASTROC SOLEUS COMPLEX'S. Dural Signs: NEGATIVE AGUSTINA LE'S. Lumbar mvmt loss: flex - MIN TO MOD. ext - BRIANA. R SG - MOD TO BRIANA. L SG - BRIANA. Core strength: POOR. Palpation: PATIENT IS TENDER OVER AGUSTINA ILIAC CRESTS. AGUSTINA PARASPINAL INCREASED MUSCLE TONE. NOT REALLY ACUTELY TENDER IN LUMBOSACRAL REGIONS. TREATMENT: NEUROMUSCULAR REEDUCATION - RETRAINING OF MVMT AND POSTURE FOR SITTING, LYING AND STANDING ACTIVITIES. - Goals Goal 1:: DECREASE C/O LBP Goal Time Frame: 4-6 Weeks Goal 2:: IMPROVE LIFTING, WALKING, SITTING, STANDING, SLEEP, SOCIAL LIFE, TRAVEL AND HOMEMAKING FUNCTION Goal Time Frame: 4-6 Weeks Goal 3:: INSTRUCT IN PROPHYLAXIS Goal Time Frame: 4-6 Weeks - Anticipated Interventions Patient/Client Instruction: Educate patient on: Condition, Plan of Care, Risk Factors, Benefits of Fitness Program For the Purpose of:: To improve self management Therapeutic Exercise to Include: Strength training, Body mechanics, Postural training, Flexibilty training, Gait and locomotor training, Neuromotor development, Dynamic Lumbar Stabilization For the Purpose of:: To decrease pain, To improve muscle performance and motor function, To increase tolerance to activity/condition/position, To improve ability of physical actions for home/community/work/leisure, To improve gait and locomotor functions Manual Therapy Techniques to Include: Soft tissue mobilization For the Purpose of:: To decrease pain, To increase ROM, To improve nutrient delivery to tissue Cryotherapy (ice pack, ice massage): Yes Thermo therapy (hot pack): Yes For the Purpose of:: To decrease pain, To decrease swelling/inflammation, To improve nutrient delivery to tissue Thank you for the opportunity to evaluate your patient. For Medicare and Medicare HMO plans, please review the plan of care and approve it. It will need to be FAXED BACK to us at [phone] for Medicare purposes. For Medicare only, by signing this I certify the plan of care. Please let me know if there are questions or concerns regarding this plan of care. Physician Signature: Date:
--- NOTE | 2020-05-08 12:49 | HP.PTDCSUM_ITS ---
It has been my pleasure to treat DESIRAE BRYANT referred by ALLYSON Carcamo, with the diagnosis of LUMBAR DDD, SPONDYLOSIS, RADICULOPATHY, STENOSIS & FACET ARTHROPATHY for a total of 9 visit(s). Discharge Date: 05/08/20 Please see the following information for a summary of their discharge status. Subjective: PATIENT STATES I MUST SAY I AM SURPRISED THAT THESE SIMPLE EX'S HAVE HELPED ME. I CAN'T BELIEVE IT BUT THEY DO HELP. I CAN DO THINGS NOW WITHOUT HURTING THAT I COULDN'T DO BEFORE THERAPY. PATIENT REPORTS SHE IS COMFORTABLE WITH HOW TO DO THE EX'S AT HOME NOW AND SHE WOULD LIKE TO TRY TO JUST CONTINUE AT HOME FOR NOW AND SEE WHAT HAPPENS. PATIENT REPORTS SHE WILL FOLLOW UP WITH PAIN MGMT. SWEPT AND DIDN'T EVEN WEAR HER BELT AND HAD LITTLE TO NO PAIN. STATES IT USE TO HURT LIKE THUNDER WHEN SHE SWEPT EVEN WITH HER BELT ON. Left LB Pain Intensity (Out of 10): 0 % Improvement: 80 Objective/Function: PATIENT WAS SEEN TODAY FOR RE-ASSESSMENT OF PROGRESS TOWARD THE SET PT GOALS AND THE NEED FOR FURTHER PHYSICAL THERAPY VS READINESS FOR DISCHARGE. ALL GOALS HAVE BEEN MET. SHE IS INDEP WITH A HEP AND IS A GOOD CANDIDATE FOR DISCHARGE TO HEP AT THIS POINT SHE DESIRES. Goal 1:: DECREASE C/O LBP Goal Progress: Goal Met Goal 2:: IMPROVE LIFTING, WALKING, SITTING, STANDING, SLEEP, SOCIAL LIFE, TRAVEL AND HOMEMAKING FUNCTION Goal Progress: Goal Met Goal 3:: INSTRUCT IN PROPHYLAXIS Goal Progress: Goal Met Plan: *PACEMAKER*. PARASPINAL STM EACH VISIT. POSTURE CORRECTI ON/STRENGTHENING, INSTRUCTION IN APPROPRIATE BODY MECHANICS AND ACTIVITY MODIFICATIONS. DLS STARTING WITH A NEUTRAL SPINE PROGRESSING ROM TOLERATED. AGUSTINA LE ROM, STRETCHING AND STRENGTHENING. HEP INSTRUCTION. If there are questions or concerns regarding this patient's physical therapy, please feel free to call me at [phone]. Thank you for the referral of this patient. Sincerely, Rachel Valderrama, PT, Cert MDT
== END 2020-05-08 19:00 | disposition home or self-care (01) ==
LOC: PT 10:30
PROVIDERS: PCP Family Medicine; Referring Provider Nurse Practitioner Family; Visit Provider Nurse Practitioner Family
DX: M47.27 Other spondylosis with radiculopathy, lumbosacral region (principal); M51.17 Intervertebral disc disorders with radiculopathy, lumbosacral region; M48.07 Spinal stenosis, lumbosacral region; M46.96 Unspecified inflammatory spondylopathy, lumbar region
CPT/HCPCS: 97110; 97112; 97140; 97162; 97164

== ENCOUNTER → 2020-05-14 10:38 | Outpatient (CLI) | payer MEDICARE, SELFPAY ==
[2020-05-04 12:58] VITALS: BMI 34.7
--- NOTE | 2020-05-14 10:48 | RAD_ITS ---
STUDY: X-RAY - LEFT SHOULDER REASON FOR EXAM: Female, 79 years old. NECK PAIN, RADIATES INTO LEFT SHOULDER, NKI TECHNIQUE: 4 view(s) of the shoulder. COMPARISON: None. FINDINGS: There is moderate degenerative arthrosis of the glenohumeral articulation. There is superior subluxation of the humeral head relative to the glenoid consistent with full-thickness rotator cuff tear. There is a pseudoarticulation between the undersurface of the acromium and humeral head along with subchondral changes in the humeral head. Mild narrowing of the AC joint. Normal acromion. The soft tissue structures are unremarkable. Normal visualized pulmonary apex. RAD/Shoulder min 2 Views IMPRESSION: Moderate glenohumeral arthrosis with superior migration of the humeral head relative to the glenoid consistent with full-thickness rotator cuff tear. Pseudoarticulation is formed between the undersurface of the acromium and humeral head with subchondral cysts and sclerosis noted in the superior humeral head but no flattening is noted Mild AC joint arthrosis Electronically Signed: Moshe Dye MD at 11:23 EDT , Service support ,
--- NOTE | 2020-05-14 10:48 | RAD_ITS ---
STUDY: X-RAY - CERVICAL SPINE REASON FOR EXAM: Female, 79 years old. PAIN, RADIATES INTO LEFT SHOULDER, NKI TECHNIQUE: 5 view(s) of the cervical spine were obtained. COMPARISON: 2016 FINDINGS: Normal anterior atlantoaxial articulation. Normal odontoid process. Normal cervical lordosis. There is multi-level endplate spondylosis. There is multi-level degenerative disc disease with multilevel disc space narrowing. There is multi-level osseous foraminal stenosis. There is a stable chronic posterior subluxation of C5 on C4 by 3 to 4 mm. The soft tissue structures are unremarkable. There is no demonstrated fracture of the cervical spine. RAD/Cerv Spine 4 or 5 Views IMPRESSION: Stable degenerative changes, no acute findings Electronically Signed: Moshe Dye MD at 11:21 EDT , Service support ,
== END ==
PROVIDERS: PCP Family Medicine; Referring Provider Nurse Practitioner Family; Visit Provider Nurse Practitioner Family
DX: M54.2 Cervicalgia (principal); M25.512 Pain in left shoulder
CPT/HCPCS: 72050; 73030

== ENCOUNTER → 2020-06-22 | Outpatient (CLI) | payer MEDICARE, SELFPAY ==
[2020-05-04 12:58] VITALS: BMI 34.7
== END | disposition home or self-care (01) ==
LOC: LABSPEC 06-23 09:02
PROVIDERS: PCP Family Medicine; Referring Provider Family Medicine; Visit Provider Family Medicine
DX: Z11.59 Encounter for screening for other viral diseases (principal)
CPT/HCPCS: 87635; 94799; U0003

== ENCOUNTER → 2021-01-27 17:04 | Outpatient (CLI) | payer MEDICARE, SELFPAY ==
[2021-01-19 09:34] VITALS: BMI 34.9
--- NOTE | 2021-01-27 17:13 | RAD_ITS ---
STUDY: X-RAY - LEFT SHOULDER REASON FOR EXAM: Female, 80 years old. SHOULDER PAIN TECHNIQUE: 4 view(s) of the shoulder. COMPARISON: 05/14/2020 FINDINGS: There is cephalad migration of the humeral head consistent with rotator cuff pathology. Normal acromioclavicular joint. Normal acromion. Normal humeral head and visualized proximal humerus. The soft tissue structures are unremarkable. Normal visualized pulmonary apex. RAD/Shoulder min 2 Views IMPRESSION: Superior displacement humeral head consistent with rotator cuff tear. Electronically Signed: Morgan Vail MD at 9:57 EST Tel , Service support ,
--- NOTE | 2021-01-27 17:13 | RAD_ITS ---
STUDY: X-RAY - RIGHT SHOULDER REASON FOR EXAM: Female, 80 years old. SHOULDER PAIN TECHNIQUE: 4 view(s) of the shoulder. COMPARISON: None. FINDINGS: There is cephalad migration of the humeral head consistent with rotator cuff pathology. There is no widening of the coracoclavicular distance. There is widening of the AC joint, but without displacement of the clavicle or widening of the coracoclavicular distance, consistent with a Type II acromioclavicular joint separation. Normal acromion. Normal humeral head and visualized proximal humerus. The soft tissue structures are unremarkable. Normal visualized pulmonary apex. RAD/Shoulder min 2 Views IMPRESSION: 1. Superior displacement humeral head suggestive of rotator cuff tear. 2. Grade 2 acromioclavicular joint separation. 3. Mild glenohumeral joint arthrosis Electronically Signed: Morgan Vail MD at 9:56 EST Tel , Service support ,
--- NOTE | 2021-01-27 17:15 | RAD_ITS ---
STUDY: X-RAY - LUMBAR SPINE REASON FOR EXAM: Female, 80 years old. BACK PAIN TECHNIQUE: 2 view(s) of the lumbar spine were obtained. COMPARISON: 09/25/2018 FINDINGS: Normal lumbar lordosis. Mild dextroscoliosis of the upper lumbar spine. There is a normal alignment of the vertebrae. There is multilevel endplate spondylosis of the lumbar vertebrae. There is multi-level degenerative disc disease with multi-level disc space narrowing. The soft tissue structures are unremarkable. RAD/Lumbar Spine 2 or 3 Views IMPRESSION: Dextroscoliosis and diffuse degenerative disc disease as described above. Electronically Signed: Morgan Vail MD at 9:34 EST Tel , Service support ,
== END ==
PROVIDERS: PCP Family Medicine; Referring Provider Anesthesiology Pain Medicine; Visit Provider Anesthesiology Pain Medicine
DX: M54.9 Dorsalgia, unspecified (principal); M25.512 Pain in left shoulder; M25.511 Pain in right shoulder
CPT/HCPCS: 72100; 73030

== ENCOUNTER → 2021-01-28 06:20 | Outpatient (CLI) | payer MEDICARE, SELFPAY ==
[2021-01-19 09:34] VITALS: BMI 34.9
--- NOTE | 2021-01-28 17:25 | STRESSREP ---
Stress Test Report Pharmacologic myocardial perfusion stress test. 80-year-old lady for preoperative cardiac evaluation. Stress protocol: Resting KG demonstrates normal sinus rhythm with a rate of 81 bpm normal intervals are noted resting blood pressure is 124/74 mmHg. 0.4 mg of regadenoson was infused per usual protocol followed by rapid intravenous saline flush injection continuous EKG monitoring was performed. The maximum heart rate was 101 bpm which was 71% of max impacted heart rate the maximum workload was 1 metabolic equivalent. At rest there were no ST or T wave changes noted to suggest abnormal flow reserve at peak infusion nonspecific ST-T wave changes were noted with no suggest abnormal flow reserve. The resting blood pressure is 124/74 with a final blood pressure 112/72. No clinical angina was noted. Myocardial perfusion protocol. 11.6 mCi of technetium 99m sestamibi was injected at rest. 0.4 mg of regadenoson was infused per usual protocol. At peak infusion 34.3 mCi of technetium 99m sestamibi was injected stress and rest images were reconstructed and compared in the short axis vertical long horizontal long axis. Gated images were also obtained Perfusion SPECT analysis: Review of the stress images demonstrate normal uptake of tracer noted in all areas of the myocardium the resting images similarly demonstrate normal uptake of tracer noted in all areas of the myocardium. There is significant GI attenuation artifact and uptake noted. No obvious reversibility is noted to suggest ischemia. Gated SPECT analysis: The gated ejection fraction is 59%. Conclusion: Normal pharmacologic myocardial perfusion stress test. Preserved ejection fraction.
== END ==
PROVIDERS: PCP Family Medicine; Referring Provider Physician Assistant Medical; Visit Provider Physician Assistant Medical
DX: R07.9 Chest pain, unspecified (principal)
CPT/HCPCS: 78452; 93017; A9500; A4216

== ENCOUNTER → 2021-03-03 13:04 | Outpatient (CLI) | payer MEDICARE, SELFPAY ==
[2021-02-22 10:57] VITALS: BMI 35.2
--- NOTE | 2021-03-03 13:07 | CT_ITS ---
CT of the right lower extremity INDICATION: Knee pain, preop knee arthroplasty The technique: Multiple thin section axial CT images the right lower extremity were obtained through the hip joint, knee joint, and ankle joint and filmed in bone windows. Furthermore, multiple sagittal and coronal reconstructions were performed. Dose limiting techniques were utilized. FINDINGS: No abnormal soft tissue mass, lymphadenopathy, fluid collection. No acute fracture or dislocation. No lytic or blastic lesions. Hip joint: Mild arthrosis. 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 Moderate joint space narrowing and osteophyte formation medial compartment with lateral tibial translation. Mild joint space narrowing of the lateral compartment and patellofemoral compartment. Small joint effusion. Ankle joint: Normal IMPRESSION: Moderate right knee arthrosis Electronically Signed: Morgan Vail MD at 9:52 EDT Tel , Service support , CT/Extremity Lower without Contra
--- NOTE | 2021-03-03 13:15 | CT_ITS ---
STUDY: CT LUMBAR SPINE WITHOUT CONTRAST REASON FOR EXAM: Female, 80 years old. BACK PAIN RADIATION DOSAGE (If Supplied By Facility): CTDIvol = ( 24.01 ) mGy, DLP = ( 721.76 ) mGycm TECHNIQUE: The patient was scanned in a multi detector CT scanner. High resolution transaxial imaging was performed. Images were obtained from T12 to S1. Sagittal and coronal images were reconstructed. Individualized dose optimization techniques were used for this CT. COMPARISON: None FINDINGS: Normal lumbar lordosis. Mild dextroscoliosis centered at L1/L2. Normal vertebrae of the lumbar spine. L1-2: Mild broad disc osteophyte complex produces mild spinal stenosis and mild bilateral neural foraminal stenosis. L2-3: Moderate broad disc osteophyte complex produces moderate spinal stenosis and moderate bilateral neural foraminal stenosis. L3-4: Moderate bilateral facet hypertrophy and ligament flavum hypertrophy. Moderate broad disc osteophyte complex with vacuum disc formation produces moderate spinal stenosis and moderate bilateral neural foraminal stenosis. L4-5: Moderate bilateral facet hypertrophy and ligament flavum hypertrophy. 2 mm of anterolisthesis of L4 on L5 with a moderate broad disc osteophyte complex with vacuum disc formation produces moderate spinal stenosis and moderate bilateral neural foraminal stenosis. L5-S1: Moderate bilateral facet hypertrophy. 2 mm retrolisthesis of L5 on S1 with a mild broad disc osteophyte complex produces moderate spinal stenosis and mild bilateral neural foraminal stenosis. Normal visualized paraspinous soft tissue structures. CT/Spine Lumbar without Contrast IMPRESSION: Mild dextroscoliosis with moderate diffuse degenerative disc disease as described above. Electronically Signed: Morgan Vail MD at 9:48 EDT Tel , Service support ,
== END ==
PROVIDERS: PCP Family Medicine; Referring Provider Orthopaedic Surgery; Visit Provider Orthopaedic Surgery
DX: M54.9 Dorsalgia, unspecified (principal); M79.606 Pain in leg, unspecified; M17.11 Unilateral primary osteoarthritis, right knee
CPT/HCPCS: 72131; 73700

== ENCOUNTER 2021-03-16 13:06 | Observation (INO) | payer MEDICARE, SELFPAY ==
[2021-02-17 09:36] VITALS: BMI 35.2
[2021-02-22 10:57] VITALS: BMI 35.2
--- NOTE | 2021-03-04 11:04 | EKG12_ITS ---
Test Reason : PREOP Blood Pressure : / mmHG Vent. Rate : 076 BPM Atrial Rate : 076 BPM P-R Int : 156 ms QRS Dur : 088 ms QT Int : 428 ms P-R-T Axes : 032 -01 089 degrees QTc Int : 481 ms Sinus rhythm with frequent Premature ventricular complexes Otherwise normal ECG Confirmed by NABEEL FLOREZ, HEMANTH ([id number]), graphic coordinator BENNETT WEAVER ([id number]) on 03/05/2021 11:53:37 AM Referred By: Kaden Lopez Confirmed By:HEMANTH LEES MD
[2021-03-04 12:32] LABS: Prothrombin Time (Protime)PT. 12.6 SECONDS (11.7-14.9)
[2021-03-04 12:33] LABS: Partial Thromboplast Time 26.8 Seconds (24.1-36.2)
[2021-03-04 13:02] LABS: AST(SGOT) 25 U/L (15-37); Alanine Aminotransfer ALT/SGPT 30 U/L (13-56); Albumin, Serum 3.7 g/dL (3.2-5.0); Alkaline Phosphatase 119 U/L (45-117); Bilirubin, Direct 0.19 mg/dL (0.00-0.30); Globulin 3.5 g/dL (2.2-4.2); Protein, Total 7.2 g/dL (6.4-8.2)
[2021-03-05 12:25] LABS: Fructosamine 220 umol/L (0-285)
[2021-03-15 13:21] VITALS: BMI 34.5
--- NOTE | 2021-03-15 16:16 | EKG12_ITS ---
Test Reason : PRE-OP Blood Pressure : / mmHG Vent. Rate : 079 BPM Atrial Rate : 079 BPM P-R Int : 162 ms QRS Dur : 086 ms QT Int : 428 ms P-R-T Axes : 060 -06 072 degrees QTc Int : 490 ms Sinus rhythm with sinus arrhythmia with frequent Premature ventricular complexes Prolonged QT Abnormal ECG Confirmed by NABEEL FLOREZ, HEMANTH ([id number]), international editorial producer DARINEL OHARA ([id number]) on 03/17/2021 2:50:21 PM Referred By: Kaden Lopez Confirmed By:HEMANTH LEES MD
[2021-03-16] VITALS (10 sets, daily range): BP systolic 91–128; BP diastolic 45–74; PULSE 64–76; RESP 16–18; TEMP 36.2–37; O2SAT 95–100; BMI 34.7
[2021-03-16 09:05] LABS: Bedside Glucose 92 mg/dL (70-110)
--- NOTE | 2021-03-16 09:31 | PCM.HP.BLA ---
History and Physical [facility] [id number] [facility] [address] [place] [address] [phone] OFFICE VISITDate of Service: 03/12/21 MR#:[id number]:[id number]: DESIRAE BRYANTRep #:[id number]:1940 Provider:Dr. Kaden Lopez, DOAge/Sex: 80/F Location:[place]:Signed Intake Intake Visit Reasons: RIGHT KNEE Accompanied by: spouse Is patient in pain?: Yes Allergies cephalexin Allergy (Severe, Verified 03/12/21 10:16) Rash paclitaxel [From Taxol] Allergy (Severe, Verified 03/12/21 10:16) PASS OUT amoxicillin Adverse Reaction (Severe, Verified 03/12/21 10:16) C-DIFF acetaminophen [From [place]] Adverse Reaction (Verified 03/12/21 10:16) Vomiting hydrocodone [From [place]] Adverse Reaction (Verified 03/12/21 10:16) Vomiting TAPE Allergy (Severe, Uncoded 03/12/21 10:16) RASH, ITCH Medications Calcium Carbonate/Vitamin D3 [Calcium 600-Vit D3 400 Tablet] 1 each PO DAILY 08/08/14 [History Confirmed 03/12/21] Aspirin [Adult Low Dose Aspirin EC] 81 mg PO DAILY 05/24/16 [History Confirmed 03/12/21] Levothyroxine [Synthroid] 88 mcg PO DAILY 07/13/17 [History Confirmed 03/12/21] Allopurinol 300 mg PO DAILY 09/09/17 [History Confirmed 03/12/21] cholecalciferol (vitamin D3) 25 mcg (1,000 unit) capsule 25 mcg PO DAILY 07/21/20 [History Confirmed 03/12/21] furosemide 40 mg tablet 40 mg PO BID #180 tablet 11/24/20 [Rx Confirmed 03/12/21] spironolactone 25 mg tablet 25 mg PO DAILY #90 tablet 11/24/20 [Rx Confirmed 03/12/21] carvedilol 6.25 mg tablet 6.25 mg PO BID #180 tablet 01/06/21 [Rx Confirmed 03/12/21] simvastatin 40 mg tablet 40 mg PO QPM #90 tablet 01/06/21 [Rx Confirmed 03/12/21] colestipol 1 gram tablet 1 gm PO PRN PRN tablet 01/19/21 [History Confirmed 03/12/21] multivitamin 1 tablet PO DAILY 01/19/21 [History Confirmed 03/12/21] [facility] Medical History (Updated 03/12/21 @ 10:43 by Penny Cordero) Non-ischemic cardiomyopathy (Chronic) Chronic combined systolic and diastolic CHF (congestive heart failure) (Chronic) Paroxysmal supraventricular tachycardia (Chronic) Essential (primary) hypertension (Chronic) HLD (hyperlipidemia) (Chronic) Recurrent cancer of left breast (Chronic) Arthritis (Chronic) COPD (chronic obstructive pulmonary disease) (Chronic) Hypothyroidism, iatrogenic (Chronic) Mouth ulcers (Chronic) Obesity (Chronic) Secondary pulmonary arterial hypertension (Resolved) Shortness of breath (Resolved) Atrial enlargement, bilateral (Inactive) Dilated cardiomyopathy (Inactive) Hypotension (Inactive) Lightheadedness (Inactive) Mitral valve disorder (Inactive) Nonrheumatic mitral (valve) insufficiency (Inactive) Surgical History History of implantable cardiac defibrillator (ICD) (Chronic 08/22/14) Hx of cholecystectomy (Chronic) H/O right and left heart catheterization (Resolved) History of carpal tunnel release of both wrists (Resolved) History of hysterectomy (Resolved) History of left heart catheterization (Resolved) History of left knee replacement (Resolved) History of lumpectomy of left breast (Resolved) History of shoulder surgery (Resolved) Family History Mother , age 90 CHF (congestive heart failure) Brother , age 71 CHF (congestive heart failure) Hx of CABG Brother CAD (coronary artery disease) Daughter Asthma Social History (Updated 03/12/21 @ 12:[address] Kaden Lopez DO) Smoking Status: Never smoker alcohol intake: never substance use type: does not use caffeine: No what type of physical activity do you participate in: bicycling, other frequency: 3-4 times per week duration: 15-30 minutes/day seatbelt use: sometimes do you feel safe at home: Yes HPI RIGHT KNEE: Details: Parts of this documentation were recorded by a scribe, this documentation accurately reflects the service provided and the decisions made by me, Dr. Kaden Lopez DO 03/12/21 0741. DESIRAE BRYANT is a 80 year old F here today for knee pain post IOVERA treatment. IOVERA treatment was: 03/05/21. Patient reports the pain was so severe she thought she would . Patient has been taking Tylenol and ibuprofen for pain control and patient reports swelling. Patient believes the treatment messed with her arthritis and had difficulty with ambulating. Patient does currently have bruising with her treatment areas. Ortho Exam General General: Yes no acute distress Neurologic: Yes alert Psychologic: Yes reasonable and appropriate Right Knee Skin/Wound: No erythema, Yes ecchymosis, Yes swelling KNEE: I have vera treatment lines and surrounding area had some mild ecchymosis minimal swelling no erythema no drainage no sign of infection no concern Supplemental Info 02/17/2021 x-ray right knee advanced medial compartment arthrosis moderate spurring throughout the knee Assessment & Plan Problems 1. Primary osteoarthritis of right knee M17.11 Plan Explained patient the treatment can cause some soft tissue swelling and bruising. That it was not in the joint where her arthritis is. The IOVERA will help with her post-op pain. Advised no ibuprofen seven days before surgery. Explained patient may use ice packs to help with her swelling. Advised patient she will has some pain post-op and the arthritis will be removed with surgery. No s/s of infection. Patient may take Tylenol 1,000mg for pain relief. All questions answered. Patient in agreement of plan. Follow up post-op or sooner if pain, swelling, numbness or associated symptoms, or concerns develop. Coding Level of Care Code Off vis,est,level 2 Diagnoses Primary osteoarthritis of right knee M17.11 03/12/21 1233<Electronically signed by Kaden Lopez DO>Date Kaden Lopez DO Cosigner Signature:Date (if applicable) CC: ~ H&p UPDATED NO CHANGES
--- NOTE | 2021-03-16 09:32 | OP.PCM_ITS ---
Report of Operation Description of Surgical Findings:: Preoperative diagnosis: right knee DJD Postoperative diagnosis: [Same] Procedure: [] total knee arthroplasty CT guided Robotic Assisted right Implant: [place] triathlon cemented femoral component size 2, cemented tibial baseplate size 2, cemented [asymmetric] patella size [32], polyethylene X3 size 10 CS Anesthesia: [spinal] with adductor canal block Tourniquet time:35 [minutes at 300 mmHg] Complications: None Condition: Stable to PACU Estimated blood loss: [200] cc Indication for procedure: This is a80 y/o female with long standing degenerative joint disease of the knee who has failed conservative treatment and wished to proceed with elective total knee arthroplasty. Risk benefits and alternatives were reviewed including; risk of bleeding, infection, nerve artery and tissue damage, continued pain, postoperative stiffness, venous thromboembolism, need for postoperative rehabilitation, mechanical feel to the knee, and expected postoperative course. The operative CT and templating was performed with component sizing Procedure: The patient was met in the preoperative holding area. The operative extremity was identified by both patient and physician and was marked. Patient was met by anesthesia. An adductor canal block was placed by anesthesia [postoperatively] the patient was brought back to the operating room on a wheeled cart and transferred to the operating table in the supine position. Anesthesia was started. A well-padded tourniquet was placed on the operative extremity. The patient was prepped and draped in the usual sterile fashion. A timeout was called to ensure the proper patient procedure and extremity were being contemplated. An Esmarch was used to exsanguinate the extremity. The tourniquet was inflated. A 10 blade scalpel was used to make a midline incision down through the skin and subcutaneous tissue. Skin retractors placed. Bovie was used to perform meticulous hemostasis. full-thickness flaps were elevated medial and lateral along the joint capsule. A deep blade scalpel was used to perform a medial parapatellar arthrotomy. The knee was brought to full extension. A Bovie was used to release the soft tissues off the most proximal aspect of the medial tibial plateau, a three-quarter inch curved osteotome was also used for this process. The infrapatellar fat pad was excised. [The superior fat pad was excised partially anteriorolateraly and portion the anterioromedial pad was elevated from the femur]. At this point our intra- articular femoral array was placed of a 45 degree angle proximal and posterior to the medial epicondyle. Our tibial array was placed greater than 1 hands breath below the incision at a 20 degree angle stab incisions were used for this case were attached and checked with the robotic software. Tourniquet was let down. At this point registration nova were taken throughout the knee as well as checkpoints placed in the femur and tibia once the knee was registered then tensioned the medial and lateral ligaments in extension and 90 degrees of flexion. We then used these numbers to adjust our components within parameters to balance the knee in both flexion and extension once this was done on our monitor we then proceeded with using the robotic arm to make our tibial plateau cut and anterior posterior and chamfer cuts and distal on the femur we then trialed and achieved the desired plan with a well-balanced knee. Lug holes were drilled in the femur the tibia preparation was completed with a fin punch and the patella was prepared by first using a caliper to ensure sufficient bone stock and a patellar reamer to remove the desired amount of bone locals were drilled for an asymmetric poly-. We then brought the knee through range of motion with excellent patellar tracking. We thoroughly irrigated the knee with a trial components were removed a posterior capsular injection with her standard cocktail was performed the aqua Mantis was also used to aid in hemostasis. Betadine rinse was allowed to sit and washed out components were cemented in place . Aricept rinse was then used followed by several more rate liters of irrigation after it was allowed to sit. Joint capsule was closed with #1 Ethibond [id number] followed by Vicryl in the subcutaneous tissues staple in the skin arrays and checkpoints were removed prior to closure all counts were correct stab incisions were closed with a stable standard dressing in the form of Mepilex for the main incision Xeroform 4 x 4 and Tegaderm over pin site holes. Thigh-high MAYE hose applied over top of dressing. Patient tolerated the procedure well and was directed to PACU in stable condition no intraoperative complications
[2021-03-16] MEDS: dexAMETHasone 10 MG/ML Vial IV (09:50)
[2021-03-16] MEDS: Epinephrine (1 mg/ml) 1 MG/ML VIAL (10:40)
[2021-03-16] MEDS: Bupivacaine Mpf 0.5% 30 ML VIAL (10:40)
[2021-03-16] MEDS: 0.9% Normal Saline (Pres. free 10 ML Vial (10:40)
[2021-03-16] MEDS: Betamethasone/Betamethasone 30 MG/5 ML Vial (10:40)
--- NOTE | 2021-03-16 12:45 | RAD_ITS ---
STUDY: X-RAY - RIGHT KNEE REASON FOR EXAM: Female, 80 years old. post op -- AP and Lateral xray of operative knee in PACU TECHNIQUE: 2 view(s) of the knee. COMPARISON: 02/17/2021. FINDINGS: Status post total knee arthroplasty. Surgical hardware intact/well aligned. No acute complications. Postoperative soft tissues with staple line. RAD/Knee 1 or 2 Views IMPRESSION: Uncomplicated right knee arthroplasty Electronically Signed: Kimani Ceballos DO at 12:57 EDT Tel , Service support ,
[2021-03-16] MEDS: Lactated Ringers 1,000 ML 125 ML IV (13:08)
[2021-03-16] MEDS: Ketorolac 15 MG/ML Vial IV (14:28)
[2021-03-16] MEDS: Acetaminophen 500 MG Tablet 1000 MG PO ×2 (14:29→21:29)
--- NOTE | 2021-03-16 14:52 | CASEMGMT ---
Living Will in summary tab of echart, no POA form on file. [place]
[2021-03-16] MEDS: Atorvastatin Calcium 20 MG Tablet PO (21:29)
[2021-03-16] MEDS: Carvedilol 6.25 MG Tablet PO (21:29)
[2021-03-16] MEDS: Senna/Docusate Sodium 1 Tablet 2 TABLET PO (21:29)
[2021-03-17 02:00] VITALS: BP 106/57; PULSE 75; RESP 18; TEMP 36.6; O2SAT 96
[2021-03-17] MEDS: Ketorolac 15 MG/ML Vial IV (04:13)
[2021-03-17 06:27] LABS: Hematocrit 26.5 % (37-47); Hemoglobin 8.6 g/dL (12.0-15.0); Mean Corp Hgb Conc 32.5 g/dL (32-36); Mean Corpuscular Hgb 31.6 pg (27.0-32.0); Mean Corpuscular Volume 97.4 fL (81-99); Mean Platelet Vol. 9.1 fl (6.2-12.0); Platelet Count 240 K/mm3 (150-450); RBC Distribution Width CV 13.2 % (11.6-14.6); RBC Distribution Width SD 46.7 fl (35.1-43.9); Red Blood Count 2.72 M/mm3 (4.2-5.4); White Blood Count 10.9 K/mm3 (4.4-11.0)
[2021-03-17] MEDS: Levothyroxine 88 MCG Tablet PO (06:44)
[2021-03-17] MEDS: Acetaminophen 500 MG Tablet 1000 MG PO ×2 (06:44→14:08)
[2021-03-17] MEDS: APIXABAN 2.5 MG TABLET PO ×2 (06:45→07:51)
[2021-03-17 06:50] LABS: Anion Gap 7 (5-15); BUN 28 mg/dL (7-18); BUN/Creat Ratio 27.2 RATIO (10-20); Calcium,Total 8.1 mg/dL (8.5-10.1); Chloride 95 mmol/L (98-107); Creatinine, Serum 1.03 mg/dL (0.55-1.02); EST Glomerular Filtration Rate 55 mL/min (>60); Est Glom Filt Rate - Afr Amer 67 mL/min (>60); Estimated Creatinine Clearance 37.24 ml/min; Glucose 164 mg/dL (74-106); Potassium 4.5 mmol/L (3.5-5.1); Sodium Level 128 mmol/L (136-145)
[2021-03-17] MEDS: Allopurinol 300 MG Tablet PO (07:50)
[2021-03-17] MEDS: Calcium Carb/Vitamin D 1 TABLET Tablet PO (07:50)
[2021-03-17] MEDS: oxyCODONE 5 MG Tablet PO ×3 (07:50→16:07)
[2021-03-17] MEDS: Senna/Docusate Sodium 1 Tablet 2 TABLET PO (07:51)
[2021-03-17] MEDS: Pantoprazole Sodium 40 MG Tablet PO (07:51)
[2021-03-17] MEDS: Carvedilol 6.25 MG Tablet PO (07:51)
[2021-03-17] MEDS: Spironolactone 25 MG Tablet PO (07:51)
[2021-03-17] MEDS: Cholecalciferol (VIT D3) 25 MCG TABLET (1,000 UNITS) PO (07:51)
[2021-03-17 08:35] VITALS: BP 116/50; PULSE 71; RESP 18; TEMP 36; O2SAT 94
--- NOTE | 2021-03-17 08:40 | PCM.PN.ORT ---
Subjective Subjective: Seen and examined doing fine denies shortness of breath lightheadedness chest pain Objective Data Objective Data Vital Signs: Vital Signs Temp Pulse Resp BP Pulse Ox 96.8 F L 71 18 116/50 L 94 03/17/21 08:35 03/17/21 08:35 03/17/21 08:35 03/17/21 08:35 03/17/21 08:35 Oxygen Flow Rate (L/min) 6 Oxygen Delivery Method Room Air Weight: 196 lb Body Mass Index (BMI) 34.7 Intake & Output: Intake and Output for Last 24 Hours 03/15/21 03/16/21 03/17/21 23:59 23:59 23:59 Intake Total 2033 / 2033 54 / 54 Output Total 800 / 800 200 / 200 Balance 1234 / 1234 -146 / -146 Lab / Micro Data Result Diagrams: 03/17/21 05:45 03/17/21 05:45 Labs: Laboratory Results - last 24 hr 03/16/21 03/16/21 03/17/21 08:35 08:47 05:45 WBC 10.9 RBC 2.72 L Hgb 8.6 L Hct 26.5 L MCV 97.4 MCH 31.6 MCHC 32.5 RDW Std Deviation 46.7 H RDW Coeff of Cookie 13.2 Plt Count 240 MPV 9.1 Sodium Potassium Chloride Carbon Dioxide Anion Gap BUN Creatinine Estim Creat Clear Calc Est GFR (MDRD) Af Amer Est GFR (MDRD) Non-Af BUN/Creatinine Ratio Glucose Calcium POC Glucose 92 Blood Type B NEGATIVE Antibody Screen NEGATIVE 03/17/21 05:45 WBC RBC Hgb Hct MCV MCH MCHC RDW Std Deviation RDW Coeff of Cookie Plt Count MPV Sodium 128 L Potassium 4.5 Chloride 95 L Carbon Dioxide 26.0 Anion Gap 7 BUN 28 H Creatinine 1.03 H Estim Creat Clear Calc 37.24 Est GFR (MDRD) Af Amer 67 Est GFR (MDRD) Non-Af 55 L BUN/Creatinine Ratio 27.2 H Glucose 164 H Calcium 8.1 L POC Glucose Blood Type Antibody Screen Micro: Microbiology 03/15/21 12:35 Interface Orders SARS-CoV-2 Antigen (Rapid) - Final 03/04/21 11:26 Swab (Method) Nasal Screen MRSA/MSSA - Final Radiography Diagnostic Testing: Radiology Impression Knee X-Ray 03/16/21 12:45 IMPRESSION: Uncomplicated right knee arthroplasty Electronically Signed: Kimani Ceballos, at 12:57 EDT Tel , Service support , Physical Exam Const alert and oriented x3 General Appearance: cooperative Extremity Extremity Narrative: Dressing clean dry and intact compartments soft neurovascular intact EHL tibialis anterior gastrocsoleus intact sensation light touch Assessment & Plan Assessment/Plan (1) Status post total right knee replacement: Status: Acute Code(s): Z96.651 - Presence of right artificial knee joint Plan: Discharge home after PT if able to complete stairs and no lightheadedness and feels comfortable with discharge PT OT weightbearing as tolerated Eliquis 2.5 mg twice daily for 2 weeks MAYE BONNERs Follow-up in office 2 weeks for wound check and staple removal Call with any questions or concerns
--- NOTE | 2021-03-17 08:43 | DCINST_ITS ---
Discharge Instructions Outpatient Procedure Reason For Visit: RT TOTAL KNEE W JENNY Diet Discharge Diet: No restrictions Activity Weight Bearing Status: Weight bearing as tolerated Additional Activity Instructions:: Ice and elevate one week while not ambulating. Ambulation is encouraged. Weightbearing as tolerated. Use assistive devise for stability. Encourage FULL knee extension and flexion 1 time EVERY time you get up and down and MULTIPLE times per day. No showering 72 hours after surgery. Begin showering postop day #3. Remove the dressing prior to shower and gently wash with warm water and antibacterial soap then pat dry and place abdominal pad (or plain gauze) and MAYE hose over top. This is to be done daily. Do not submerge for 3 weeks. If not showering daily after the initial 72 hours then you must clean incision and change dressing daily. Do not allow animals near the incision area. Keep clean. Follow anticoagulation recommendations as prescribed. Do not take any NSAIDs while on blood thinner. D o not take any additional narcotic pain medication other than what was prescribed on you surgery day without discussing with physician. Start physical therapy. If you are not currently scheduled for physical therapy or you are unsure of appointment time please call office JOSE to arrange. Call Dr. Lopez with any concerns. Follow Up Care Please Follow Up With: Kaden Lopez DO When: 2 weeks Test Results: Test results from this visit will be discussed in further detail at your follow-up appointment, if applicable. Discharge Plan Admission Admit Date/Time: 03/16/21 13:06 Attending Provider: Kaden Lopez Primary Care Provider: Annetta Branch Discharge Orders/Prescriptions Prescriptions: No Action cholecalciferol (vitamin D3) 25 mcg (1,000 unit) capsule 25 mcg PO DAILY RF: 0 colestipol 1 gram tablet 1 gm PO PRN PRN (Reason: Diarrhea) RF: 0 multivitamin Tablet 1 tablet PO DAILY RF: 0 omeprazole 40 mg capsule,delayed release(DR/EC) 40 mg PO DAILY RF: 0 calcium carbonate-vitamin D3 1 EACH tablet 1 each PO DAILY RF: 0 aspirin 81 MG tablet,delayed release (DR/EC) 81 mg PO DAILY RF: 0 levothyroxine 88 MCG tablet 88 mcg PO DAILY RF: 0 allopurinol 300 MG tablet 300 mg PO DAILY RF: 0 furosemide 40 mg tablet 40 mg PO BID Qty: 180 RF: 3 spironolactone 25 mg tablet 25 mg PO DAILY Qty: 90 RF: 3 carvedilol 6.25 mg tablet 6.25 mg PO BID Qty: 180 RF: 3 simvastatin 40 mg tablet 40 mg PO QPM Qty: 90 RF: 3
--- NOTE | 2021-03-17 09:55 | CASEMGMT ---
KATE SAMSON Face to Face with patient for initial transition planning/care coordination assessment. RN CHAPIN introduced self and role at [facility]. Patient lying in bed, alert and oriented. Patient willing to participate in assessment and is able to answer all questions appropriately. Care providers, pharmacy, and demographics verified. Patient wishes to discharge home, denies need for home health at this time. Patient states he has no further needs or concerns at this time. CM to follow for discharge planning needs that may arise. PCP: Jhonny then switching to Danielle Specialists: kurt Lopez; Kota, music therapist [employer]; Sharonda, oncologist Preferred Pharmacy: [facility] Insurance: L[facility] Prescription Benefit: yes Living Will/HPOA: yes Jose Roberto Archuleta HPOA LNOK: Living Arrangements: Patient lives with in a single story home with 3 steps and railing to enter the home. Transportation: DME/HHC: Patient states she has shower chair, grab bars, and walker at home. Patient is scheduled for outpatient therapy at [facility] Monday Disposition Plan: Patient to discharge home with with outpatient therapy, family support, and follow-up plans in place. Leslie BRADFORD, RN, CM
[2021-03-17 14:00] VITALS: BP 113/54; PULSE 77; RESP 18; TEMP 36.9; O2SAT 97
--- NOTE | 2021-03-17 14:30 | CASEMGMT ---
RN CHAPIN NOTE: Intro role of CM to patient and HAYS form explained re: Observation status for treatment of right total .? Explained hospitalization will be paid per? her insurance policy for Outpatient billing?and condition will continue to be evaluated for In-pt necessity. Also let pt know that [facility] sends paper in the billing packet with their phone number if questions arise. Discussed Pharmacy section of HAYS form and self administered medication guideline.? Pt verbalizes understanding and does not have further questions. ? Form signed, copy made and placed in chart, and original given to pt. Akash COHENN RN CM
== END 2021-03-17 16:40 | disposition home or self-care (01) ==
LOC: SDC 13:21 → MS3 13:21
PROVIDERS: Anesthesiology; Admitting Provider Orthopaedic Surgery; PCP Internal Medicine; Referring Provider Orthopaedic Surgery; Visit Provider Orthopaedic Surgery
PROC: 0SRC0JZ Replacement of Right Knee Joint with Synthetic Substitute, Open Approach (ICD-10-PCS; CPT 27447; principal; 2021-03-16 09:00)
DX: M17.11 Unilateral primary osteoarthritis, right knee (principal); Z20.828 Contact with and (suspected) exposure to other viral communicable diseases; K21.9 Gastro-esophageal reflux disease without esophagitis; R94.31 Abnormal electrocardiogram [ECG] [EKG]; E78.5 Hyperlipidemia, unspecified; I11.0 Hypertensive heart disease with heart failure; I50.42 Chronic combined systolic (congestive) and diastolic (congestive) heart failure; J44.9 Chronic obstructive pulmonary disease, unspecified; E66.9 Obesity, unspecified; Z68.34 Body mass index [BMI] 34.0-34.9, adult; E03.9 Hypothyroidism, unspecified; Z79.82 Long term (current) use of aspirin; Z86.718 Personal history of other venous thrombosis and embolism; Z79.899 Other long term (current) drug therapy; Z95.810 Presence of automatic (implantable) cardiac defibrillator
CPT/HCPCS: 01402; 27447; 64447; S2900; 36415; 73560; 80048; 80076; 82962; 82985; 83735; 84443; 85027; 85610; 85730; 86850; 86900; 86901; 87081; 87426; 93005; 96361; 96365; 96366; 96375; 96376; 97110; 97162; 97166; 97530; 97535; 99218; 99251; C1776; C9803; J7120; G0378; G0379; G0463; J0702; J2405; J3490

== ENCOUNTER → 2021-03-24 10:46 | Outpatient (CLI) | payer MEDICARE, SELFPAY ==
[2021-03-24 09:16] VITALS: BMI 34.7
--- NOTE | 2021-03-24 10:48 | VDLE_ITS ---
Reason For Study: swelling RIGHT GSV is normal. CFV is compressible, spontaneous, phasic, competent and demonstrates normal augmentation. FV is compressible, spontaneous, phasic, competent and demonstrates normal augmentation. POP V is compressible, spontaneous, phasic, competent and demonstrates normal augmentation. T/P Trunk is compressible. PTV is compressible. RT PerV is compressible. Procedure This is a venous duplex using B-mode, color flow and spectral Doppler. Exam performed in department. The exam was abbreviated due to the COVID 19 protocol. The exam was diagnostic. A preliminary report was called and/or faxed to Alexandra WELLER. VL/Venous Duplex US, Unilateral Interpretation Summary Deep veins of the right lower extremity are patent and compressible segmentally . There is no evidence of right lower extremity deep vein thrombosis. Valvular competence michael ears intact within the proximal deep venous system on the right . The right great saphenous vein a ppears patent and compressible segmentally. Ordering Physician: Jair Morris Performed By: Chavez Lopez RVT
[2021-03-24 14:47] LABS: Absolute Lymphocyte Count 2.29 X10^3/uL (0.83-4.51); Absolute Neutrophil Count 7.3 X10^3/uL (2.0-7.7); Basophil# 0.03 X10^3/uL; Basophil% 0.3 % (0-1); Eosinophil# 0.22 X10^3/uL; Hematocrit 26.1 % (37-47); Lymphocyte # 2.29 X10^3/ul (0.83-4.51); Lymphocyte % 20.5 % (19-41); Mean Corp Hgb Conc 30.7 g/dL (32-36); Mean Corpuscular Hgb 31.9 pg (27.0-32.0); Mean Platelet Vol. 8.7 fl (6.2-12.0); Monocyte# 1.19 X10^3/uL; Monocyte% 10.7 % (0-10); NRBC Flagged by Analyzer 0.7 % (0-5); Neutrophil # 7.29 X10^3/uL (2.7-7.7); Neutrophil % 65.2 % (47-70); Platelet Count 325 K/mm3 (150-450); RBC Distribution Width CV 14.6 % (11.6-14.6); RBC Distribution Width SD 54.4 fl (35.1-43.9); Red Blood Count 2.51 M/mm3 (4.2-5.4); White Blood Count 11.2 K/mm3 (4.4-11.0)
[2021-03-24 15:10] LABS: Anion Gap 5 (5-15); BNP,B-Type NATRIURETIC PEPTIDE 562.4 pg/mL (0-100); BUN 23 mg/dL (7-18); BUN/Creat Ratio 17.8 RATIO (10-20); Calcium,Total 8.8 mg/dL (8.5-10.1); Chloride 101 mmol/L (98-107); Creatinine, Serum 1.29 mg/dL (0.55-1.02); EST Glomerular Filtration Rate 42 mL/min (>60); Est Glom Filt Rate - Afr Amer 51 mL/min (>60); Glucose 118 mg/dL (74-106); Sodium Level 134 mmol/L (136-145)
== END ==
PROVIDERS: Physician Assistant Medical; PCP Internal Medicine; Referring Provider Physician Assistant; Visit Provider Physician Assistant
DX: M79.661 Pain in right lower leg (principal); I42.8 Other cardiomyopathies; I11.0 Hypertensive heart disease with heart failure; E78.5 Hyperlipidemia, unspecified; I50.42 Chronic combined systolic (congestive) and diastolic (congestive) heart failure; R00.2 Palpitations; C50.912 Malignant neoplasm of unspecified site of left female breast
CPT/HCPCS: 36415; 80048; 83880; 85025; 93971

== ENCOUNTER → 2021-03-31 14:55 | Outpatient (CLI) | payer MEDICARE, SELFPAY ==
[2021-03-29 14:17] VITALS: BMI 36.3
[2021-03-31 15:47] LABS: Hematocrit 29.3 % (37-47); Hemoglobin 8.9 g/dL (12.0-15.0)
== END ==
PROVIDERS: PCP Internal Medicine; Visit Provider Physician Assistant Medical
DX: D64.9 Anemia, unspecified (principal); Z47.1 Aftercare following joint replacement surgery; Z96.651 Presence of right artificial knee joint
CPT/HCPCS: 36415; 85014; 85018; 97016; 97110

== ENCOUNTER → 2021-04-01 09:03 | Outpatient (CLI) | payer MEDICARE, SELFPAY ==
[2021-03-24 13:06] VITALS: BMI 36.3
[2021-03-29 14:17] VITALS: BMI 36.3
== END ==
PROVIDERS: PCP Internal Medicine; Referring Provider Physician Assistant Medical; Visit Provider Physician Assistant Medical
DX: I42.8 Other cardiomyopathies (principal); E78.5 Hyperlipidemia, unspecified; I50.42 Chronic combined systolic (congestive) and diastolic (congestive) heart failure; R00.2 Palpitations; I11.0 Hypertensive heart disease with heart failure
CPT/HCPCS: 93225; 93226

== ENCOUNTER → 2021-04-28 09:48 | Outpatient (CLI) | payer MEDICARE, SELFPAY ==
[2021-02-22 10:57] VITALS: BMI 35.2
[2021-04-01 14:15] VITALS: BMI 36.3
--- NOTE | 2021-04-28 09:53 | BI_ITS ---
MAMMOGRAPHY - BILATERAL SCREENING REASON FOR EXAM: Female, 80 years old. Routine annual screening examination. PERTINENT HISTORY: Personal history of breast cancer. Prior left lumpectomy and radiation treatment. Mother with breast cancer. Aunt with breast cancer. TECHNIQUE: Digital bilateral breast temi (3D mammographic acquisition) in the CC and MLO projections. 2-D mediolateral oblique (MLO) and craniocaudad (CC) views of both breasts were obtained. CAD: Full Field Digital Mammography with Computer Added Detection was performed. COMPARISON: Comparison is made with prior study dated 04/27/2020 and 04/25/2019. FINDINGS: Breast Composition: There are scattered areas of fibroglandular density. There are no dominant masses or suspicious calcifications. The patient is status post left lumpectomy with resultant decreased size of the breast and postsurgical changes. A battery pack from a left-sided pacemaker is seen in the axilla. No other significant abnormalities are identified. There has been no significant change since the prior study. BI/SCRN MAMM (CAD)W/TEMI BILAT IMPRESSION: Stable bilateral screening mammogram. Yearly follow-up mammogram recommended. (A) ASSESSMENT CATEGORY: BIRADS Category 2: Benign. A letter regarding these results will be sent to the patient by the facility within 30 days. Approximately 10% of breast cancers are not detected by mammography. A normal mammogram should not delay biopsy of a clinically suspicious abnormality. [id number] Electronically Signed: Cesar Wing MD at 10:52 EDT , Service support ,
== END ==
PROVIDERS: PCP Internal Medicine; Referring Provider Internal Medicine Medical Oncology; Visit Provider Internal Medicine Medical Oncology
DX: Z12.31 Encounter for screening mammogram for malignant neoplasm of breast (principal); Z85.3 Personal history of malignant neoplasm of breast
CPT/HCPCS: 77063; 77067

== ENCOUNTER 2021-05-07 09:00 | Outpatient (RCR) | payer MEDICARE, SELFPAY ==
[2021-02-22 10:57] VITALS: BMI 35.2
[2021-03-16 14:00] VITALS: BMI 34.7
--- NOTE | 2021-03-19 12:03 | HP.PTEVAL_ITS ---
Patient's Visit Information DESIRAE BRYANT is a 80 year old F referred to Physical Therapy by Dr. Kaden Lopez DO with a diagnosis of R TKA - chary. Date of Evaluation: 03/19/21 Physical Therapist: Reji Contreras DPT - Visit Plan Frequency: 2-3x /Week Duration: 6 Weeks Plan: Have pt. continue PT 3 times a week for 6 weeks to decrease pain and inflammation by using a vasocompression device with ice, increase knee flexion and extension, progress quadriceps strength, and progress general muscle strength. The pt. plans to see her referring doctor in two weeks. Plan to have pt. walking independently in a few weeks without an AD. Progress ROM, strength and functional mobility as tolerated. - Subjective The pt. presenting to the clinic today is a 80 yo female s/p R total knee replacement. The surgery was done on Monday03/16/2021 by her reffering DrDr. John Awan. The pt. presents with a walker and reports that her pain is a 6/10 today and is pretty stiff from the surgery. She states her symptoms get better with pain medicaton and when she uses ice. She reports that she has difficulty with getting into her car, getting in/out of bed, ascending/descending stairs, walking, doing laundry, and cooking. The pt. denies any N/T and can sleep without any problems. She states that she has had a L knee replacement about 9 years ago and does not remember how much pain she went through back then, but states she does not think she needed to use a walker. - Pain R Knee Pain Intensity (Out of 10): 6 Pain Intensity Range: Unrated - Objective Posture: Increased kyphotic thoracic spine, forward head, rounded shoulders B in both sitting and standing. Negative homans sign in R LE. ROM: R knee flex 95 deg, L 116 deg, lacking knee ext by 10 deg, L by 4 deg. girth: B patella 50.5 cm, R 6 in. above patella 57 cm, L 54 cm. MMT: B 5/5 knee flex, R knee ext +3/5, L 5/5, R hip flex 3+/5, L 4/5, B hip abduction 4/5, hip adduction 4/5. The pt. presents today using an AD with decreased flexion and extension in the R knee, increased inflammation and redness around the R knee, and decreased quadriceps and hip flexion strength. The pt. is having difficulty with all ADL's such as ascending/descending the three steps she has to get into her house, getting in/out of bed, getting in/out of a car, walking, cooking, and doing gooden ndry. The limitations listed above are limiting the pt. to perform her ADL's without pain and she needs PT to address the impairments so she can return to her life as it was before surgery. TU seconds with FWW - Goals Goal 1:: LTG: Pt. be compliant and independent with HEP. Goal Time Frame: 2-4 Weeks Goal 2:: LTG: Pt. will be able to flex her knee to 120 degrees so she harvey ascend and descend stairs without pain. Goal Time Frame: 2-4 Weeks Goal 3:: LTG: Pt. will perform the TUG under 15 seconds, so she can walk in the community with confidence. Goal Time Frame: 6-8 Weeks Goal 4:: LTG: Pt. will have pain less than a 2/10 when performing all ADL's a home. Goal Time Frame: 6-8 Weeks Goal 5:: LTG: Pt. will be a 5/5 in quadriceps MMT so she can get in and out of her car without compensations. Goal Time Frame: 6-8 Weeks - Rehabilitation Potential Physical Therapy Diagnosis: The pt. is a s/p R TKA and presents with general muscle weakness, decreased knee ROM, and difficulty with normal gait. Rehabilitation Potential: Good - Anticipated Interventions Therapeutic Exercise to Include: Strength training, Endurance training, Balance training, Coordination, Body mechanics, Postural training, Flexibilty training, Passive ROM, Active ROM For the Purpose of:: To decrease pain, To decrease swelling/inflammation, To increase ROM, To improve nutrient delivery to tissue, To improve muscle performance and motor function, To improve ability to perform ADL's, To increase tolerance to activity/condition/position, To improve performance and independence with ADL's, To decrease level of supervision to perform tasks, To improve ability of physical actions for home/community/work/leisure, To improve gait and locomotor functions, To increase flexibility/ROM, To improve endurance, To improve balance, To improve safety with gait, To assume or resume ADL's, To improve tolerance to ADL's Manual Therapy Techniques to Include: Mobilization, Passive ROM For the Purpose of:: To decrease pain, To decrease swelling/inflammation, To increase ROM, To improve muscle performance and motor function, To improve ability to perform ADL's, To increase tolerance to activity/condition/position, To improve performance and independence with ADL's, To improve ability of physical actions for home/community/work/leisure, To improve gait and locomotor functions, To increase flexibility/ROM, To improve balance, To improve safety with gait, To assume or resume ADL's, To improve tolerance to ADL's Vasopneumatic device: Yes For the Purpose of:: To decrease pain, To decrease swelling/inflammation, To increase ROM, To increase oxygenation perfusion, To improve muscle performance and motor function, To improve ability to perform ADL's, To improve gait and locomotor functions, To increase flexibility/ROM Thank you for the opportunity to evaluate your patient. For Medicare and Medicare HMO plans, please review the plan of care and approve it. It will need to be FAXED BACK to us at [phone] for Medicare purposes. For Medicare only, by signing this I certify the plan of care. Please let me know if there are questions or concerns regarding this plan of care. Physician Signature: Date:
[2021-03-29 10:47] VITALS: BMI 36.3
--- NOTE | 2021-04-20 15:47 | HP.PTREVAL ---
Dr. Kaden Lopez, DO, It has been my pleasure to treat DESIRAE BRYANT over the last 8 visits for R TKA - chary. Please see the progress note below for an update on the physical therapy plan of care! Subjective: The pt. states that she does feel sore and stiff in the morning and after she sits for a long period of time. She states that her stretches help when it feels stiff and that she has been trying to do this at home. Objective/Function: knee flex ROM: R 110deg. Knee ext ROM: R minus 8deg from full knee ext. Knee flex MMT: R 4/5. Knee ext MMT: R 4/5. TU.8sec. The pt. did well today, but did have some soreness into her R gastroc/soleus complex and R quadriceps muscles. The pts. RLE was not warm to the touch and was not red/shiny. She is still wearing a thigh high compression sock to decrease swelling and was educated about icing at home. She was able to perform all exercises with minimal pain, but is still lacking full knee extension and 10deg of flexion on the RLE. The pt. is ambulating better and putting more weight through her R LE, but is still lacking full knee ext. She is not using a cane anymore to ambulate. Plan Plan: Progress knee flexion and extension ROM, quad/hamstrings strength and functional mobility as tolerated. Roll out the pts. gastroc/soleus and quad musculature if she is feeling tight or sore. Goals Goal 1:: LTG: Pt. be compliant and independent with HEP. Goal Time Frame: 2-4 Weeks Goal Progress: Goal Met Goal 2:: LTG: Pt. will be able to flex her knee to 120 degrees so she harvey ascend and descend stairs without pain. Goal Time Frame: 2-4 Weeks Goal Progress: Progressing Goal 3:: LTG: Pt. will perform the TUG under 15 seconds, so she can walk in the community with confidence. Goal Time Frame: 6-8 Weeks Goal Progress: Goal Met Goal 4:: LTG: Pt. will have pain less than a 2/10 when performing all ADL's a home. Goal Time Frame: 6-8 Weeks Goal Progress: Progressing Goal 5:: LTG: Pt. will be a 5/5 in quadriceps MMT so she can get in and out of her car without compensations. Goal Time Frame: 6-8 Weeks Goal Progress: Progressing Anticipated Interventions Therapeutic Exercise to Include: Strength training, Endurance training, Balance training, Coordination, Body mechanics, Postural training, Flexibilty training, Passive ROM, Active ROM For the Purpose of:: To decrease pain, To decrease swelling/inflammation, To increase ROM, To improve nutrient delivery to tissue, To improve muscle performance and motor function, To improve ability to perform ADL's, To increase tolerance to activity/condition/position, To improve performance and independence with ADL's, To decrease level of supervision to perform tasks, To improve ability of physical actions for home/community/work/leisure, To improve gait and locomotor functions, To increase flexibility/ROM, To improve endurance, To improve balance, To improve safety with gait, To assume or resume ADL's, To improve tolerance to ADL's Manual Therapy Techniques to Include: Mobilization, Passive ROM For the Purpose of:: To decrease pain, To decrease swelling/inflammation, To increase ROM, To improve muscle performance and motor function, To improve ability to perform ADL's, To increase tolerance to activity/condition/position, To improve performance and independence with ADL's, To improve ability of physical actions for home/community/work/leisure, To improve gait and locomotor functions, To increase flexibility/ROM, To improve balance, To improve safety with gait, To assume or resume ADL's, To improve tolerance to ADL's Vasopneumatic device: Yes For the Purpose of:: To decrease pain, To decrease swelling/inflammation, To increase ROM, To increase oxygenation perfusion, To improve muscle performance and motor function, To improve ability to perform ADL's, To improve gait and locomotor functions, To increase flexibility/ROM Please do not hesitate to contact me at [phone] by phone or if you have questions or concerns regarding this new plan of care! Sincerely, Reji Contreras DPT
--- NOTE | 2021-04-22 10:38 | HP.PTREVAL ---
Dr. Kaden Lopez, DO, It has been my pleasure to treat DESIRAE BRYANT over the last 8 visits for R TKA - chary. Please see the progress note below for an update on the physical therapy plan of care! Subjective: The pt. states that she does feel sore and stiff in the morning and after she sits for a long period of time. She states that her stretches help when it feels stiff and that she has been trying to do this at home. Patient reports being 80% better. She is still having stiffness and increased swelling. Objective/Function: knee flex ROM: R 110deg. Knee ext ROM: R minus 8deg from full knee ext. Knee flex MMT: R 4/5. Knee ext MMT: R 4/5. TU.8sec. The pt. did well today, but did have some soreness into her R gastroc/soleus complex and R quadriceps muscles. The pts. RLE was not warm to the touch and was not red/shiny. She is still wearing a thigh high compression sock to decrease swelling and was educated about icing at home. She was able to perform all exercises with minimal pain, but is still lacking full knee extension and 10deg of flexion on the RLE. The pt. is ambulating better and putting more weight through her R LE, but is still lacking full knee ext. She is not using a cane anymore to ambulate. At this point in time she is overall doing well. She needs to have improved knee extension ROM allowing for proper gait mechanics and increased knee flexion for stair negotiation and squatting. She is overall moving better, but still needs improve ROM for overall health and longevity of her new prosthesis. Plan Plan: Progress knee flexion and extension ROM, quad/hamstrings strength and functional mobility as tolerated. Roll out the pts. gastroc/soleus and quad musculature if she is feeling tight or sore. Goals Goal 1:: LTG: Pt. be compliant and independent with HEP. Goal Time Frame: 2-4 Weeks Goal Progress: Goal Met Goal 2:: LTG: Pt. will be able to flex her knee to 120 degrees so she harvey ascend and descend stairs without pain. Goal Time Frame: 2-4 Weeks Goal Progress: Progressing Goal 3:: LTG: Pt. will perform the TUG under 15 seconds, so she can walk in the community with confidence. Goal Time Frame: 6-8 Weeks Goal Progress: Goal Met Goal 4:: LTG: Pt. will have pain less than a 2/10 when performing all ADL's a home. Goal Time Frame: 6-8 Weeks Goal Progress: Progressing Goal 5:: LTG: Pt. will be a 5/5 in quadriceps MMT so she can get in and out of her car without compensations. Goal Time Frame: 6-8 Weeks Goal Progress: Progressing Goal 6:: LTG: Pt. to negotiate 1 flight of steps with reciprocal pattern with 1 HR with 0-2/10 pain in her knee. Anticipated Interventions Patient/Client Instruction: Educate patient on: Condition, Plan of Care, Risk Factors, Benefits of Fitness Program For the Purpose of:: To facilitate caregiver knowledge, To improve self management, To prevent re-injury, To improve ability to perform tasks related to life management Therapeutic Exercise to Include: Strength training, Endurance training, Balance training, Coordination, Body mechanics, Postural training, Flexibilty training, Passive ROM, Active ROM For the Purpose of:: To decrease pain, To decrease swelling/inflammation, To increase ROM, To improve nutrient delivery to tissue, To improve muscle performance and motor function, To improve ability to perform ADL's, To increase tolerance to activity/condition/position, To improve performance and independence with ADL's, To decrease level of supervision to perform tasks, To improve ability of physical actions for home/community/work/leisure, To improve gait and locomotor functions, To increase flexibility/ROM, To improve endurance, To improve balance, To improve safety with gait, To assume or resume ADL's, To improve tolerance to ADL's Manual Therapy Techniques to Include: Mobilization, Passive ROM For the Purpose of:: To decrease pain, To decrease swelling/inflammation, To increase ROM, To improve muscle performance and motor function, To improve ability to perform ADL's, To increase tolerance to activity/condition/position, To improve performance and independence with ADL's, To improve ability of physical actions for home/community/work/leisure, To improve gait and locomotor functions, To increase flexibility/ROM, To improve balance, To improve safety with gait, To assume or resume ADL's, To improve tolerance to ADL's Vasopneumatic device: Yes For the Purpose of:: To decrease pain, To decrease swelling/inflammation, To increase ROM, To increase oxygenation perfusion, To improve muscle performance and motor function, To improve ability to perform ADL's, To improve gait and locomotor functions, To increase flexibility/ROM Please do not hesitate to contact me at [phone] by phone or if you have questions or concerns regarding this new plan of care! Sincerely, KANE GaryT
--- NOTE | 2021-05-07 10:15 | HP.PTDCSUM ---
It has been my pleasure to treat DESIRAE BRYANT referred by Dr. Kaden Lopez DO, with the diagnosis of R TKA - chary for a total of 13 visit(s). Discharge Date: 05/07/21 Please see the following information for a summary of their discharge status. Subjective: Pt. reports being 85% better overall. She has minimal to no pain walking in today. She does have some soreness after prolonged sitting (stiffness), I talked to her about this being normal as her swelling alleviates so will this symptom. She reports being able to negotiate steps and all home activities without limitations. R Knee Pain Intensity (Out of 10): 0 % Improvement: 85 Objective/Function: AROM: R knee 0-1-118deg. PROM: R knee 0-0-124deg. MMT: Pt. had 4+/5 strength throughout LLE except 5/5 HS and 4/5 hip abd. GAIT: Pt. ambulates with good pattern without AD. She has slight antalgic pattern, but overall improved. 6MTW: 1008ft. Pt. reports increased fatigue in her RLE as limiting factor. Mild soreness noted. STAIRS: Pt. is able to complete with 1 HR with reciprocal pattern, slight functional weakness with descending. (mild increase in anterior knee pain during descending). LEFS: 62/80 Goal 1:: LTG: Pt. be compliant and independent with HEP. Goal Progress: Goal Met Goal 2:: LTG: Pt. will be able to flex her knee to 120 degrees so she harvey ascend and descend stairs without pain. Goal Progress: Goal Met Goal 3:: LTG: Pt. will perform the TUG under 15 seconds, so she can walk in the community with confidence. Goal Progress: Goal Met Goal 4:: LTG: Pt. will have pain less than a 2/10 when performing all ADL's a home. Goal Progress: Goal Met Goal 5:: LTG: Pt. will be a 5/5 in quadriceps MMT so she can get in and out of her car without compensations. Goal Progress: Progressing Goal 6:: LTG: Pt. to negotiate 1 flight of steps with reciprocal pattern with 1 HR with 0-2/10 pain in her knee. Goal Progress: Goal Met Plan: Pt. will be DC to HEP at this point in time. Discharge Comments: Pt. is being DC from PT this point in time. She has met her goals with ROM, MMT, and gait. She is overall doing well. I would like her to continue with ROM and strength exercises at home along with working on progressive walking program. Pt. given HEP to assist with this. Pt. consents. Pt. to follow up with physician is she has any questions/problems. If there are questions or concerns regarding this patient's physical therapy, please feel free to call me at [phone]. Thank you for the referral of this patient. Sincerely, Reji Contreras DPT
== END 2021-05-07 19:00 | disposition home or self-care (01) ==
LOC: PT 09:00
PROVIDERS: PCP Internal Medicine; Referring Provider Orthopaedic Surgery; Visit Provider Orthopaedic Surgery
DX: Z47.1 Aftercare following joint replacement surgery (principal); Z96.651 Presence of right artificial knee joint
CPT/HCPCS: 97016; 97110; 97161; 97164; 97530

== ENCOUNTER → 2021-07-06 10:26 | Outpatient (CLI) | payer MEDICARE, SELFPAY ==
[2021-06-11 10:00] VITALS: BMI 36.3
--- NOTE | 2021-07-06 10:27 | RAD_ITS ---
STUDY: X-RAY CHEST REASON FOR EXAM: Female, 81 years old. SOB TECHNIQUE: PA and lateral views of the chest. COMPARISON: 11/05/2014 FINDINGS: Left subclavian dual-lead AICD which is unchanged. Status post left axillary lymph node dissection. The lungs are clear and expanded. There is no demonstrated pleural abnormality. There is moderate cardiac enlargement. Normal mediastinum and kirk. Normal visualized pulmonary arteries. Normal visualized aortic arch and descending thoracic aorta. Normal visualized thoracic spine. Normal visualized ribs, clavicles, and shoulders. There is no demonstrated abnormality of the visualized soft tissue structures of the upper abdomen. RAD/Chest PA and Lateral IMPRESSION: No active disease. Electronically Signed: Morgan Vail MD at 7:10 EDT Tel , Service support ,
[2021-07-06 10:46] LABS: Absolute Lymphocyte Count 1.99 X10^3/uL (0.83-4.51); Absolute Neutrophil Count 4.1 X10^3/uL (2.0-7.7); Basophil# 0.03 X10^3/uL; Basophil% 0.4 % (0-1); Eosinophil# 0.37 X10^3/uL; Eosinophils% 5.3 % (0-5); Hematocrit 34.4 % (37-47); Hemoglobin 11.1 g/dL (12.0-15.0); Lymphocyte # 1.99 X10^3/ul (0.83-4.51); Lymphocyte % 28.5 % (19-41); Mean Corp Hgb Conc 32.3 g/dL (32-36); Mean Corpuscular Hgb 30.8 pg (27.0-32.0); Mean Corpuscular Volume 95.6 fL (81-99); Mean Platelet Vol. 9.2 fl (6.2-12.0); Monocyte# 0.51 X10^3/uL; Monocyte% 7.3 % (0-10); NRBC Flagged by Analyzer 0 % (0-5); Neutrophil # 4.07 X10^3/uL (2.7-7.7); Neutrophil % 58.2 % (47-70); Platelet Count 218 K/mm3 (150-450); RBC Distribution Width CV 15.2 % (11.6-14.6); RBC Distribution Width SD 52.6 fl (35.1-43.9)
[2021-07-06 11:20] LABS: Vitamin D,25 Hydroxy 61.6 ng/mL
[2021-07-06 11:26] LABS: AST(SGOT) 24 U/L (15-37); Alanine Aminotransfer ALT/SGPT 24 U/L (13-56); Albumin, Serum 3.7 g/dL (3.2-5.0); Alkaline Phosphatase 109 U/L (45-117); Anion Gap 8 (5-15); BUN 36 mg/dL (7-18); BUN/Creat Ratio 28.1 RATIO (10-20); Calcium,Total 9.2 mg/dL (8.5-10.1); Chloride 105 mmol/L (98-107); Cholesterol 104 mg/dL (200); Creatinine, Serum 1.28 mg/dL (0.55-1.02); EST Glomerular Filtration Rate 43 mL/min (>60); Est Glom Filt Rate - Afr Amer 52 mL/min (>60); Globulin 3.6 g/dL (2.2-4.2); Glucose 135 mg/dL (74-106); High Density Lipoprotein 35 mg/dL; Potassium 3.9 mmol/L (3.5-5.1); Protein, Total 7.3 g/dL (6.4-8.2); Sodium Level 137 mmol/L (136-145); Triglycerides 121 mg/dL; Very Low Density Lipoprotein 24 mg/dL (5-40)
[2021-07-06 14:04] LABS: BNP,B-Type NATRIURETIC PEPTIDE 841.7 pg/mL (0-100)
== END ==
PROVIDERS: PCP Internal Medicine; Referring Provider Nurse Practitioner Family; Visit Provider Nurse Practitioner Family
DX: R07.89 Other chest pain (principal); R06.02 Shortness of breath; E55.9 Vitamin D deficiency, unspecified; M17.11 Unilateral primary osteoarthritis, right knee; I10 Essential (primary) hypertension; Z95.810 Presence of automatic (implantable) cardiac defibrillator; E78.5 Hyperlipidemia, unspecified; I47.1 Supraventricular tachycardia; R73.9 Hyperglycemia, unspecified; R00.2 Palpitations
CPT/HCPCS: 71046; 80053; 80061; 82306; 83036; 83880; 84443; 85025

== ENCOUNTER → 2021-07-07 11:02 | Outpatient (CLI) | payer MEDICARE, SELFPAY ==
[2021-06-11 10:00] VITALS: BMI 36.3
== END ==
PROVIDERS: PCP Internal Medicine; Referring Provider Nurse Practitioner Family; Visit Provider Nurse Practitioner Family
DX: R00.2 Palpitations (principal); R06.02 Shortness of breath; R07.89 Other chest pain
CPT/HCPCS: 93225; 93226

== ENCOUNTER → 2021-08-10 14:16 | Outpatient (CLI) | payer MEDICARE, SELFPAY ==
[2021-08-10 15:28] LABS: Anion Gap 7 (5-15); BUN 43 mg/dL (7-18); BUN/Creat Ratio 31.9 RATIO (10-20); Chloride 97 mmol/L (98-107); Creatinine, Serum 1.35 mg/dL (0.55-1.02); EST Glomerular Filtration Rate 40 mL/min (>60); Est Glom Filt Rate - Afr Amer 49 mL/min (>60); Glucose 155 mg/dL (74-106); Potassium 4.3 mmol/L (3.5-5.1); Sodium Level 130 mmol/L (136-145)
== END ==
PROVIDERS: PCP Internal Medicine; Visit Provider Nurse Practitioner Family
DX: I50.42 Chronic combined systolic (congestive) and diastolic (congestive) heart failure (principal)
CPT/HCPCS: 36415; 80048

== ENCOUNTER → 2021-08-23 11:55 | Outpatient (CLI) | payer MEDICARE, SELFPAY ==
[2021-08-23 12:58] LABS: BNP,B-Type NATRIURETIC PEPTIDE 1019.8 pg/mL (0-100)
== END ==
PROVIDERS: PCP Internal Medicine; Visit Provider Nurse Practitioner Family
DX: I42.8 Other cardiomyopathies (principal)
CPT/HCPCS: 36415; 83880

== ENCOUNTER → 2021-08-30 09:45 | Outpatient (CLI) | payer MEDICARE, SELFPAY ==
[2021-08-30 11:20] LABS: Anion Gap 10 (5-15); BUN 43 mg/dL (7-18); BUN/Creat Ratio 26.7 RATIO (10-20); Calcium,Total 9.3 mg/dL (8.5-10.1); Chloride 102 mmol/L (98-107); Creatinine, Serum 1.61 mg/dL (0.55-1.02); EST Glomerular Filtration Rate 33 mL/min (>60); Est Glom Filt Rate - Afr Amer 40 mL/min (>60); Glucose 153 mg/dL (74-106); Potassium 3.7 mmol/L (3.5-5.1); Sodium Level 138 mmol/L (136-145)
[2021-08-30 11:31] LABS: Free T3 2.6 pg/mL (2.18-3.98); T4 Free Direct 0.93 ng/dL (0.76-1.46); Thyroid Stim Hormone (TSH) 9.57 uIU/mL (0.358-3.74)
== END ==
PROVIDERS: PCP Internal Medicine; Referring Provider Nurse Practitioner Family; Visit Provider Nurse Practitioner Family
DX: R00.2 Palpitations (principal); E03.2 Hypothyroidism due to medicaments and other exogenous substances; R06.02 Shortness of breath; R07.89 Other chest pain
CPT/HCPCS: 36415; 80048; 84439; 84443; 84481

== ENCOUNTER → 2021-08-31 13:38 | Outpatient (CLI) | payer MEDICARE, SELFPAY ==
--- NOTE | 2021-08-31 13:44 | ECHOCS_ITS ---
Reason For Study: Dyspnea/SOB Procedure This was a 2D Doppler, Color Flow transthoracic echocardiogram. The study was technically difficult. Contrast injection was performed. Exam performed in department. Left Ventricle Normal LV size. The estimated ejection fraction is 35 %. Stage 2 diastolic dysfunction. There is moderate global hypokinesis of the left ventricle. Right Ventricle Normal RV size. ICD or pacer leads identified within the right ventricle. Normal systolic function. Atria The left atrium is mildly enlarged. The right atrium is mildly enlarged. Mitral Valve Normal mitral valve. Moderate (2+) eccentric mitral valve insufficiency. Tricuspid Valve Normal tricuspid valve. Moderate (2+) tricuspid valve insufficiency. Pulmonary artery systolic pressure is 55 mmHg. Moderate pulmonary hypertension. Aortic Valve Trisinus/trileaflet aortic valve. Pulmonic Valve Normal pulmonic valve. Great Vessels Normal aortic root. The pulmonary artery is normal size. Normal inferior vena cava. Pericardium/Pleural No pericardial effusion. Medication 22 gauge I.V. with prn adaptor inserted into right arm. Ziyinibt0ml given slow IV push to enhance endocardial definition. MMode/2D Measurements & Calculations LVIDd: 5.4 cm IVSd: 0.93 cm LA dimension: 4.8 cm LVIDs: 4.9 cm LVPWd: 1.1 cm RVDd: 4.2 cm FS: 10.1 % LAV(MOD-bp): 67.2 ml LVAd ap4: 49.3 cm2 SV(MOD-sp4): 43.5 ml LAV(MOD-bp) Indexed: 35.3 ml/m2 LVLd ap4: 9.3 cm LAV(MOD-sp2): 64.6 ml EDV(MOD-sp4): 214.1 ml LAV(MOD-sp4): 66.3 ml EDV(sp4-el): 222.0 ml LVAs ap4: 42.1 cm2 LVLs ap4: 8.6 cm ESV(MOD-sp4): 170.6 ml ESV(sp4-el): 175.1 ml EF(MOD-sp4): 20.3 % EF(sp4-el): 21.1 % SV(sp4-el): 46.9 ml LA A4 area: 21.8 cm2 RA A4 area: 21.1 cm2 Time Measurements MV dec time: 0.21 sec Doppler Measurements & Calculations MV E max romario: 118.6 cm/sec Lat Peak E' Romario: 7.2 cm/sec Med Peak E' Romario: 3.9 cm/sec MV A max romario: 93.8 cm/sec E/E' lat: 16.6 E/E' med: 30.1 MV E/A: 1.3 MV V2 max: 129.0 cm/sec MV P1/2t max romario: 129.7 cm/sec Ao V2 max: 140.6 cm/sec MV max P.7 mmHg MV P1/2t: 49.1 msec Ao max P.9 mmHg MV V2 mean: 65.2 cm/sec MV mean P.0 mmHg MV dec slope: 774.3 cm/sec2 MV V2 VTI: 32.2 cm MVA(P1/2t): 4.5 cm2 AI max roamrio: 325.6 cm/sec LV V1 max: 101.7 cm/sec MR max romario: 478.0 cm/sec AI max P.5 mmHg LV V1 max P.1 mmHg MR max P.4 mmHg MR mean romario: 356.0 cm/sec AI dec slope: 227.2 cm/sec2 MR mean P.3 mmHg AI P1/2t: 419.8 msec MR VTI: 145.9 cm TR max romario: 357.2 cm/sec TR max P.0 mmHg ECHO/Echo Complete W/ Contrast Interpretation Summary Normal LV size. The estimated ejection fraction is 35 %. Stage 2 diastolic dysfunction. The left atrium is mildly enlarged. The right atrium is mildly enlarged. Moderate (2+) eccentric mitral valve insufficiency. Pulmonary artery systolic pressure is 55 mmHg. Moderate pulmonary hypertension. Compared to previous study, the left ventricular systolic function has worsened .. Contrast injection was performed. Ordering Physician: Jose Nunez Referring Physician: Annetta Branch Performed By: Kvng Paz RCS
== END ==
PROVIDERS: PCP Internal Medicine; Referring Provider Nurse Practitioner Family; Visit Provider Nurse Practitioner Family
DX: I47.1 Supraventricular tachycardia (principal)
CPT/HCPCS: 93306; Q9957; A4216; C8929; J2785; J3490

== ENCOUNTER → 2021-09-16 11:11 | Outpatient (CLI) | payer MEDICARE, SELFPAY ==
[2021-09-16 15:24] LABS: Anion Gap 9 (5-15); BUN 38 mg/dL (7-18); BUN/Creat Ratio 26.2 RATIO (10-20); Calcium,Total 8.7 mg/dL (8.5-10.1); Chloride 98 mmol/L (98-107); Creatinine, Serum 1.45 mg/dL (0.55-1.02); EST Glomerular Filtration Rate 37 mL/min (>60); Est Glom Filt Rate - Afr Amer 45 mL/min (>60); Glucose 96 mg/dL (74-106); Potassium 4.5 mmol/L (3.5-5.1); Sodium Level 131 mmol/L (136-145)
== END ==
PROVIDERS: PCP Internal Medicine; Referring Provider Nurse Practitioner Family; Visit Provider Nurse Practitioner Family
DX: I42.8 Other cardiomyopathies (principal); I50.42 Chronic combined systolic (congestive) and diastolic (congestive) heart failure; R06.00 Dyspnea, unspecified
CPT/HCPCS: 36415; 80048

== ENCOUNTER 2021-09-20 12:30 | Outpatient (RCR) | payer MEDICARE, SELFPAY ==
[2021-06-11 10:00] VITALS: BMI 36.3
--- NOTE | 2021-06-18 14:49 | HP.PTEVAL_ITS ---
Patient's Visit Information DESIRAE BRYANT is a 80 year old F referred to Physical Therapy by Dr. Kaden Lopez DO with a diagnosis of R ITB syndrome. Date of Evaluation: 06/18/21 Physical Therapist: KANE YouT, OCS, CSCS - Visit Plan Frequency: 2-3x /Week Duration: 2-4 Weeks Plan: 3x/week for 2-4 weeks for... 1. rollout and strech ITb/piri/quad R LE. 2. strenth R hip. Educate on mangement of ITB syndrome including positioning. has pace maker so no ES or US) - Subjective Had TKA R in March. Recovered OK from that. Now lateral R leg started hurting without reason. It has been hurting a month ago and is worseing. Saw surgeon for check up and sent for ITb. Doctor thought it was ITB syndrome and sent for therapy , no other treatment. Sleeps on R side. Is on celebrex for family doctor but stopped taking it. Continue TKA stretch of SLR, HS, QS, step stretch. 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 Takes an hour or so to get to sleep. Not employed. Basic ADLs are all getting done and do not make her leg worse. Bike made leg worse. Sitting can make it worse in the eg. - Pain R lateral leg Pain Intensity (Out of 10): 0 Pain Intensity Range: 0, 8 Comment: getting in car. - Objective Walks slow and with R antalgia slightly. Trasnfers with UE from chair. Steps slow and reciprocal but hesitant to use R and needs to pull with UE. AROM r knee 0-110, SLR labored but able without lag. L knee AROM 0-110. HS min tight B, ITB max tight B, quad and hip flexor max tight B and painful in ITB to stretch quad. Strength 3 in hip ext and abd B and 3+ in fexion, knee strength 4- R and L knee ext adn flexion, ankle WFL. Max tender to palpation over GT R and down ITB to lateral knee adn up into piriformis area. - Goals Goal 1:: Pain in r leg to 1/10 at worst adn toelrable Goal Time Frame: 4-6 Weeks Goal 2:: Pt feel 100% back to normal as prior to leg pain pain Goal Time Frame: 4-6 Weeks Goal 3:: Walk in and out without evidence of problems or antalgia. Goal Time Frame: 4-6 Weeks - Rehabilitation Potential Physical Therapy Diagnosis: R itb syndrome Rehabilitation Potential: Fair - Anticipated Interventions Patient/Client Instruction: Educate patient on: Condition, Plan of Care For the Purpose of:: To decrease pain, To increase ROM, To improve muscle performance and motor function, To increase tolerance to activity/condition/p osition Therapeutic Exercise to Include: Strength training, Postural training, Flexibilty training, Gait and locomotor training, Passive ROM, Active ROM For the Purpose of:: To decrease pain, To increase ROM, To improve muscle performance and motor function, To increase tolerance to activity/condition/position Manual Therapy Techniques to Include: Mobilization, Soft tissue mobilization For the Purpose of:: To increase ROM Cryotherapy (ice pack, ice massage): Yes For the Purpose of:: To decrease swelling/inflammation Thank you for the opportunity to evaluate your patient. For Medicare and Medicare HMO plans, please review the plan of care and approve it. It will need to be FAXED BACK to us at [phone] for Medicare purposes. For Medicare only, by signing this I certify the plan of care. Please let me know if there are questions or concerns regarding this plan of care. Physician Signature: Date:
--- NOTE | 2021-07-15 10:54 | HP.PTREVAL ---
Dr. Kaden Lopez, DO, It has been my pleasure to treat DESIRAE BRYANT over the last 7 visits for R ITB syndrome. Please see the progress note below for an update on the physical therapy plan of care! Subjective: Better but still problems. I can do stretches without pain. Knots aren't as bad in R LE. PPain still to 3/10 daily intermittently. Worse with certain twists at times. Activities are pretty normal from leg. Stretching at home. No f/u with doctor. Sleep is not interrupted a nd a lot better. Objective/Function: No antalgia in gait today, good FGA, steps reciprocally without pain. Still so9me tenderness R lateral ITB. Pain in lateral R knee descending steps. Plan Plan: f/u three weeks for d/c if doing wella nd maintaining improvements. Fair prognosis to mantain and continue improvements toward current goals. Balance/Gait/Functional tests - Balance/Special Test Scores Functional Gait Assessment Score: 26 % Disability: 13.3400 Lower Extremity Functional Score: 43 Goals Goal 1:: Pain in r leg to 1/10 at worst adn toelrable Goal Time Frame: 4-6 Weeks Goal Progress: up to 3/10 at times Goal 2:: Pt feel 100% back to normal as prior to leg pain pain Goal Time Frame: 4-6 Weeks Goal Progress: 85% Goal 3:: Walk in and out without evidence of problems or antalgia. Goal Time Frame: 4-6 Weeks Goal Progress: Goal Met Anticipated Interventions Patient/Client Instruction: Educate patient on: Condition, Plan of Care For the Purpose of:: To decrease pain, To increase ROM, To improve muscle performance and motor function, To increase tolerance to activity/condition/position Therapeutic Exercise to Include: Strength training, Postural training, Flexibilty training, Gait and locomotor training, Passive ROM, Active ROM For the Purpose of:: To decrease pain, To increase ROM, To improve muscle performance and motor function, To increase tolerance to activity/condition/position Manual Therapy Techniques to Include: Mobilization, Soft tissue mobilization For the Purpose of:: To increase ROM Cryotherapy (ice pack, ice massage): Yes For the Purpose of:: To decrease swelling/inflammation Please do not hesitate to contact me at [phone] by phone or if you have questions or concerns regarding this new plan of care! Sincerely, Kimani Redd, DPT, OCS, CSCS
--- NOTE | 2021-08-04 09:55 | HP.PTREVAL_ITS ---
Dr. Kaden Lopez, DO, It has been my pleasure to treat DESIRAE BRYANT over the last 8 visits for R ITB syndrome. Please see the progress note below for an update on the physical therapy plan of care! Subjective: Still has pain posterior lateral l knee and hip down side of leg. Intermittent and not sure what brings it on. usually wakes her up at 5 am as she has to lie on R side as her L side has pacemaker and no lymphnodes. Tries her back but not great. Stretching it 2x/day and is able to do housework and grocery shopping but does get irritated. It is about the same as 2-3 weeks ago then she says it is worse. Objective/Function: Pt has regressed since just oing home ex and holding on therapy. Subjectively more pain. Walks well today with minor R antalgia. Tende to touch piriformis area, ITB R moderately. Knee AROM is limited in extension and 4/5 strength ext and flex with no pian. Hip ROM painful into fl exion and ext rotation slightly. Overall subjectively slightly worse than 2 weeks ago at this f/u Appropriate to continue per POC and for patient to contact doctor regarding other options due to worsening with hoime ex. Plan Plan: 2x/week for 2-4 weeks for. 1. STM piriformis R, ITB r, and sgtretching of quad, HS, piriformis, ITB. 2. Pt doing stretches at home and strengthening and ensure appropriat eprogression. Has Pacemaker Balance/Gait/Functional tests - Balance/Special Test Scores Functional Gait Assessment Score: 26 % Disability: 13.3400 Lower Extremity Functional Score: 43 Goals Goal 1:: Pain in r leg to 1/10 at worst adn toelrable Goal Time Frame: 4-6 Weeks Goal Progress: up to 3/10 at times Goal 2:: Pt feel 100% back to normal as prior to leg pain pain Goal Time Frame: 4-6 Weeks Goal Progress: regressed, appropr. Goal 3:: Walk in and out without evidence of problems or antalgia. Goal Time Frame: 4-6 Weeks Goal Progress: regressed., approp Anticipated Interventions Patient/Client Instruction: Educate patient on: Condition, Plan of Care For the Purpose of:: To decrease pain, To increase ROM, To improve muscle performance and motor function, To increase tolerance to activity/condition/position Therapeutic Exercise to Include: Strength training, Postural training, Flexibilt y training, Gait and locomotor training, Passive ROM, Active ROM For the Purpose of:: To decrease pain, To increase ROM, To improve muscle performance and motor function, To increase tolerance to activity/condition/position Manual Therapy Techniques to Include: Mobilization, Soft tissue mobilization For the Purpose of:: To increase ROM Cryotherapy (ice pack, ice massage): Yes For the Purpose of:: To decrease swelling/inflammation Please do not hesitate to contact me at [phone] by phone or if you have questions or concerns regarding this new plan of care! Sincerely, Kimani Redd, DPT, OCS, CSCS
--- NOTE | 2021-08-17 10:43 | HP.PTEVAL2_ITS ---
Patient's Visit Information DESIRAE BRYANT is a 81 year old F referred to Physical Therapy by Dr. Kaden Lopez DO with a diagnosis of Lumbar DDD. Date of Evaluation: 08/17/21 Physical Therapist: Kimani Redd, KANET, OCS, CSCS - Visit Plan Frequency: 2x /Week Duration: 4-6 Weeks Plan: 2x/week for 4 weeks for. 1. hip flexor stretch and strengthen B. 2. NS core strengthening progressing to HEP and NS posture. 3. LB ROM progression for HEP. pt has pacemaker - Subjective Subjective: Doctor also wanted back evaluation. She has had back trouble for years and years. Back hurts mostly of L side in LB. Gets up to 7/10 when on feet cleaning and feels good lying down flat.. Does not keep her up. Needs to rest often. Sitting or lying feel pretty good. Denies numbness tingling or weakness. Sees Basali for injections but not lately and they havent helped much lately. Has a brace for abdomen which helps a little bit, uses it when active. - Objective Objective: Walks back to therapy safely and I. Transfers chair I and bed I. LB multisegmental AROM ext max limited and painful, L sidebend min limted and painful L LB, R SB OK and flexion OK without pain. reflexes 1/3 patella and achilles. Sensation LE WNL to gross light touch in LE. Strength 4- andkles and knees, 3 in hip abd and ext adn 3+ flexion B. + L lumbar compression. - Goals Goal 1:: LBP 0-1/10 at all times. 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 without having to sit Goal Time Frame: 2-4 Weeks Goal 3:: I appropr HEP for LB ROM Goal Time Frame: 4-6 Weeks - Rehabilitation Potential Physical Therapy Diagnosis: Lumbar DDD Rehabilitation Potential: Good - Anticipated Interventions Patient/Client Instruction: Educate patient on: Condition, Plan of Care For the Purpose of:: To improve muscle performance and motor function, To increase tolerance to activity/condition/position, To improve ability of physical actions for home/community/work/leisure Therapeutic Exercise to Include: Strength training, Postural training, Flexibilty training, Passive ROM, Active ROM, Dynamic Lumbar Stabilization For the Purpose of:: To decrease pain, To increase ROM, To improve muscle performance and motor function, To improve ability of physical actions for home/community/work/leisure Manual Therapy Techniques to Include: Mobilization, Passive ROM, Soft tissue mobilization For the Purpose of:: To decrease pain, To increase ROM, To increase tolerance to activity/condition/position, To improve gait and locomotor functions Thermo therapy (hot pack): Yes For the Purpose of:: To improve nutrient delivery to tissue, To improve muscle performance and motor function Thank you for the opportunity to evaluate your patient. For Medicare and Medicare HMO plans, please review the plan of care and approve it. It will need to be FAXED BACK to us at [phone] for Medicare purposes. For Medicare only, by signing this I certify the plan of care. Please let me know if there are questions or concerns regarding this plan of care. Physician Signature: Date:
--- NOTE | 2021-09-20 12:53 | HP.PTDCSUM ---
It has been my pleasure to treat DESIRAE BRYANT referred by Dr. Kaden Lopez DO, with the diagnosis of R ITB syndrome for a total of 13 visit(s). Discharge Date: Please see the following information for a summary of their discharge status. Subjective: Pt reports that she is not having much pain. Just kind of sore. R lateral leg Pain Intensity (Out of 10): Unrated R knee Pain Intensity (Out of 10): Unrated % Improvement: 40 Objective/Function: Good tolerance to the above. C/o tightness in quad that comes and goes pretty frequently. Instructed in quad stretching to end range to reduce this. Goal 1:: Pain in r leg to 1/10 at worst adn toelrable Goal Progress: up to 3/10 at times Goal 2:: Pt feel 100% back to normal as prior to leg pain pain Goal Progress: regressed, appropr. Goal 3:: Walk in and out without evidence of problems or antalgia. Goal Progress: regressed., approp Plan: Continue with ITB/hamstring/quad stretching, LE strengthening, and manual therapy. If there are questions or concerns regarding this patient's physical therapy, please feel free to call me at [phone]. Thank you for the referral of this patient. Sincerely, Kimani Redd, DPT, OCS, CSCS Balance/Gait/Functional tests - Balance/Special Test Scores Functional Gait Assessment Score: 26 % Disability: 13.3400 Oswestry Low Back Score: 9 Lower Extremity Functional Score: 43
== END 2021-09-20 19:00 | disposition home or self-care (01) ==
LOC: PT 12:30
PROVIDERS: PCP Internal Medicine; Referring Provider Orthopaedic Surgery; Visit Provider Orthopaedic Surgery
DX: M76.31 Iliotibial band syndrome, right leg (principal); M51.36 Other intervertebral disc degeneration, lumbar region
CPT/HCPCS: 97110; 97140; 97161; 97162; 97164; 97530

== ENCOUNTER → 2021-09-24 13:00 | Outpatient (CLI) | payer MEDICARE, SELFPAY ==
[2021-09-24 15:50] LABS: Anion Gap 12 (5-15); BUN 46 mg/dL (7-18); BUN/Creat Ratio 29.7 RATIO (10-20); Chloride 95 mmol/L (98-107); Creatinine, Serum 1.55 mg/dL (0.55-1.02); EST Glomerular Filtration Rate 34 mL/min (>60); Est Glom Filt Rate - Afr Amer 42 mL/min (>60); Glucose 123 mg/dL (74-106); Potassium 4.4 mmol/L (3.5-5.1); Sodium Level 132 mmol/L (136-145)
== END ==
PROVIDERS: PCP Internal Medicine; Referring Provider Nurse Practitioner Family; Visit Provider Nurse Practitioner Family
DX: I42.8 Other cardiomyopathies (principal); I50.42 Chronic combined systolic (congestive) and diastolic (congestive) heart failure
CPT/HCPCS: 36415; 80048

== ENCOUNTER → 2021-09-30 09:40 | Outpatient (CLI) | payer MEDICARE, SELFPAY ==
[2021-09-30 12:31] LABS: Anion Gap 12 (5-15); BUN 64 mg/dL (7-18); BUN/Creat Ratio 37.6 RATIO (10-20); Calcium,Total 9.2 mg/dL (8.5-10.1); Chloride 89 mmol/L (98-107); EST Glomerular Filtration Rate 31 mL/min (>60); Est Glom Filt Rate - Afr Amer 37 mL/min (>60); Glucose 116 mg/dL (74-106); Sodium Level 125 mmol/L (136-145)
== END ==
PROVIDERS: PCP Internal Medicine; Referring Provider Nurse Practitioner Family; Visit Provider Nurse Practitioner Family
DX: I50.42 Chronic combined systolic (congestive) and diastolic (congestive) heart failure (principal); I42.8 Other cardiomyopathies; R06.00 Dyspnea, unspecified
CPT/HCPCS: 36415; 80048

== ENCOUNTER → 2021-10-07 09:24 | Outpatient (CLI) | payer MEDICARE, SELFPAY ==
[2021-10-07 10:47] LABS: Anion Gap 8 (5-15); BUN 54 mg/dL (7-18); BUN/Creat Ratio 33.8 RATIO (10-20); Calcium,Total 9.2 mg/dL (8.5-10.1); Chloride 99 mmol/L (98-107); EST Glomerular Filtration Rate 33 mL/min (>60); Est Glom Filt Rate - Afr Amer 40 mL/min (>60); Glucose 141 mg/dL (74-106); Potassium 4.1 mmol/L (3.5-5.1); Sodium Level 132 mmol/L (136-145)
== END ==
PROVIDERS: PCP Internal Medicine; Referring Provider Nurse Practitioner Family; Visit Provider Nurse Practitioner Family
DX: E87.1 Hypo-osmolality and hyponatremia (principal); Z79.899 Other long term (current) drug therapy
CPT/HCPCS: 36415; 80048

== ENCOUNTER 2021-10-17 13:26 | Observation (INO) | payer MEDICARE, SELFPAY ==
[2021-10-17] VITALS (7 sets, daily range): BP systolic 100–145; BP diastolic 65–120; PULSE 71–84; RESP 16–20; TEMP 36.6–36.7; O2SAT 94–99; BMI 35.4; BMI 34.5
--- NOTE | 2021-10-17 13:56 | EKG12_ITS ---
Test Reason : SOB Blood Pressure : / mmHG Vent. Rate : 080 BPM Atrial Rate : 080 BPM P-R Int : 164 ms QRS Dur : 100 ms QT Int : 454 ms P-R-T Axes : 028 -03 089 degrees QTc Int : 523 ms Sinus rhythm with Premature supraventricular complexes ST & T wave abnormality, consider lateral ischemia Prolonged QT Abnormal ECG Confirmed by VICENTA FLOREZ, SARAH ([id number]), department editor BENNETT WEAVER ([id number]) on 10/19/2021 9:15:49 AM Referred By: SUE Confirmed By:SARAH YADAV MD
--- NOTE | 2021-10-17 13:57 | EX.ED.DYSGE1 ---
HPI History of Present Illness Chief Complaint: Edema Informant: patient Narrative Narrative: Patient presents with concern for worsening CHF. She has a history of this. This evidently related to chemotherapy from breast cancer. Her last chemotherapy was 2013. She states her ejection fraction has been down as low as 10%. Is been up as high as 50. She states that approximately 2 months ago she thinks it was 35%. They have been trying to adjust her meds. She was on Lasix at 40 twice daily. She is also takes spironolactone and has been on that for couple years. She then decreased the Lasix with the request of her physician to 80 in the morning and 40 in the evening. This really has not helped her symptoms. She has some mild orthopnea on occasion. She does have some dyspnea on exertion. She thinks there is a weight gain but not sure how much. She is not having chest pain pressure or tightness. No hemoptysis. No pleuritic symptoms. She has some mild swelling of her legs over baseline but it is equal. No fevers or chills. She had a Covid test yesterday at home that was negative. She is not having any other symptoms of Covid other than the mild dyspnea. She does get a slight cough. Patient denied history of COPD but it is on her diagnosis list. She also denied prior heart catheterization although she has had that about 11 years ago. [facility] Medical History Arthritis Atrial enlargement, bilateral Chronic combined systolic and diastolic CHF (congestive heart failure) COPD (chronic obstructive pulmonary disease) Dilated cardiomyopathy Essential (primary) hypertension HLD (hyperlipidemia) Hypotension Hypothyroidism, iatrogenic Lightheadedness Mitral valve disorder Mouth ulcers Non-ischemic cardiomyopathy Nonrheumatic mitral (valve) insufficiency Obesity Paroxysmal supraventricular tachycardia Recurrent cancer of left breast Secondary pulmonary arterial hypertension Shortness of breath Home Medications calcium carbonate-vitamin D3 1 each PO DAILY 08/08/14 [History Last Taken Unknown] aspirin 81 mg PO DAILY 05/24/16 [History Last Taken Unknown] allopurinol 300 mg PO DAILY 09/09/17 [History Last Taken Unknown] cholecalciferol (vitamin D3) 25 mcg (1,000 unit) capsule 25 mcg PO DAILY 07/21/20 [History Last Taken Unknown] spironolactone 25 mg tablet 25 mg PO DAILY #90 tablet 11/24/20 [Rx Last Taken Unknown] simvastatin 40 mg tablet 40 mg PO QPM #90 tablet 01/06/21 [Rx Last Taken Unknown] colestipol 1 gram tablet 1 gm PO PRN PRN tablet 01/19/21 [History Last Taken Unknown] multivitamin 1 tablet PO DAILY 01/19/21 [History Last Taken Unknown] omeprazole 40 mg capsule,delayed release 40 mg PO DAILY 03/15/21 [History Last Taken Unknown] acetaminophen [Tylenol Extra Strength] 1,000 mg PO Q6H PRN #100 tab 03/17/21 [Rx Last Taken Unknown] carvedilol 12.5 mg tablet 12.5 mg PO BID #180 tab 05/25/21 [Rx Last Taken Unknown] levothyroxine 112 mcg tablet 112 mcg PO DAILY #90 tab 09/14/21 [Rx Last Taken Unknown] meloxicam 7.5 mg tablet 7.5 mg PO tab 09/27/21 [History Last Taken Unknown] furosemide 40 mg tablet 40 mg PO .COMPLEX #180 tab 10/12/21 [Rx Last Taken Unknown] metolazone 2.5 mg tablet 2.5 mg PO .COMPLEX 10/12/21 [History Last Taken Unknown] Allergy/AdvReac Type Severity Reaction Status Date / Time cephalexin Allergy Severe Rash Verified 10/17/21 13:28 paclitaxel [From Taxol] Allergy Severe PASS OUT Verified 10/17/21 13:28 amoxicillin AdvReac Severe C-DIFF Verified 10/17/21 13:28 hydrocodone AdvReac Vomiting Verified 10/17/21 13:28 TAPE Allergy Severe RASH, ITCH Uncoded 10/17/21 13:28 Family History Mother , age 90 CHF (congestive heart failure) Brother , age 71 CHF (congestive heart failure) Hx of CABG Brother CAD (coronary artery disease) Daughter Asthma Surgical History H/O right and left heart catheterization History of carpal tunnel release of both wrists History of hysterectomy History of implantable cardiac defibrillator (ICD) (08/22/14) History of left heart catheterization History of left knee replacement History of lumpectomy of left breast History of shoulder surgery Hx of cholecystectomy Social History Smoking Status: Never smoker alcohol intake: never substance use type: does not use caffeine: No what type of physical activity do you participate in: bicycling and other frequency: 3-4 times per week duration: 15-30 minutes/day seatbelt use: sometimes do you feel safe at home: Yes ROS ROS ED Constitutional Constitutional ED: Denies chills, fever(s) or sweats Eyes Eyes: Denies blurry vision ENT ENT ED: Denies rhinorrhea or sore throat Cardiovascular Cardiovascular: Reports orthopnea; Denies chest pain or palpitations Respiratory/Chest Respiratory/Chest: Reports cough, dyspnea, dyspnea on exertion and orthopnea; Denies sputum Gastrointestinal Gastrointestinal: Denies abdominal pain or nausea Genitourinary Genitourinary ED: Denies dysuria Musculoskeletal Musculoskeletal: Denies back pain or neck pain Integumentary Denies rash Neurologic Neurologic: Denies headache(s), paresthesias or weakness Endocrine Endocrinology: Denies polydipsia or polyuria Allergic/Immunologic Allergic/Immunologic ED: Denies mouth swelling or urticaria EXAM Physical Exam Const Vital Signs: 10/17/21 13:26 10/17/21 14:21 10/17/21 14:36 Temperature 98 F Temperature Source Temporal Pulse Rate 71 84 Respiratory Rate 20 H 16 Respiratory Effort Short of Breath Respiratory Pattern Normal Blood Pressure 145/120 H Blood Pressure Mean 128 Pulse Ox 94 97 Oxygen Delivery Method Room Air Room Air Patient is actually lying down almost flat when I walk in the room. She looks comfortable and nontoxic. Her breathing looks easy and unlabored. Positive well nourished, well developed and obese General Appearance ED: well developed and NAD Nutritional Appearance: obese HEENT Denies moist mucous membranes Eyes General Eye ED: Negative for pale conjunctiva or scleral icterus Neck no JVD Resp normal respiratory effort and No clear to auscultation bilaterally Resp Narrative: Patient has just a hint of crackles far at the bases. No rhonchi. No definitive wheeze. Effort and Inspection: Negative for pain with movement Auscultation: rales; Negative for rhonchi or wheezes Cardio regular rate, regular rhythm, S1 normal heart sound and no murmurs GI normal to inspection, nondistended, normoactive bowel sounds and non-tender Palpation: soft Back/Spine no CVA tenderness Extremity Extremity Narrative: Very mild +1 edema bilaterally. No cords. No asymmetry. No distended veins. Neuro Sensorium / Orientation: alert Psych mental status grossly normal Skin no rashes or lesions noted and no wounds MDM MDM MDM Narrative Medical decision making narrative: Patient's blood work showed some mild anemia. Her sodium was dropping down again. Her creatinine is elevated but about at what it has been recently. Troponin is negative. However her BNP is rising again. Chest x-ray shows pretty significant cardiomegaly. My concern is that this patient has been getting good management as an outpatient. They have done an echo. They have increased her Lasix. Despite this her symptoms are worsening, her BNP is rising, and her sodium is going down. I think we need to get her in the hospital for closer management and observation. We will have to watch her labs. I will add on a TSH. I discussed case with hospitalist. We also are now adding on a Covid test to make sure that this is negative here. Lab Data Attestation: I reviewed the patient's lab results. Labs: Laboratory Results - last 24 hr 10/17/21 10/17/21 10/17/21 14:05 14:05 14:05 WBC 8.4 RBC 3.31 L Hgb 10.5 L Hct 31.0 L MCV 93.7 MCH 31.7 MCHC 33.9 RDW Std Deviation 46.8 H RDW Coeff of Cookie 14.0 Plt Count 193 MPV 9.7 Immature Gran % (Auto) 0.400 Neut % (Auto) 64.2 Lymph % (Auto) 23.1 [place] % (Auto) 8.9 Eos % (Auto) 3.0 Baso % (Auto) 0.4 Absolute Neuts (auto) 5.4 Absolute Lymphs (auto) 1.95 Nucleated RBC % 0.2 Sodium 126 L Potassium 4.2 Chloride 89 L Carbon Dioxide 26.0 Anion Gap 11 BUN 48 H Creatinine 1.65 H Estim Creat Clear Calc 22.87 Est GFR (MDRD) Af Amer 39 L Est GFR (MDRD) Non-Af 32 L BUN/Creatinine Ratio 29.1 H Glucose 119 H Calcium 9.0 Troponin I High Sens 26 B-Natriuretic Peptide 1892.4 H Radiography Diagnostic Testing: Clinical Impression(s) from Imaging Studies Chest X-Ray 10/17/21 14:34 IMPRESSION: Stable cardiomegaly with no acute pulmonary abnormality. at 1457 Reported and signed by: Timur Mendez MD Electronically Signed: Timur Mendez MD at 14:56 EST Tel , Service support , Discharge Plan Triage Chief Complaint: Edema ED Provider: Alvin Arellano Dx/Rx/DC Orders Clinical Impression: Congestive heart failure, Failure of outpatient treatment Prescriptions: No Action cholecalciferol (vitamin D3) 25 mcg (1,000 unit) capsule 25 mcg PO DAILY RF: 0 colestipol 1 gram tablet 1 gm PO PRN PRN (Reason: Diarrhea) RF: 0 multivitamin Tablet 1 tablet PO DAILY RF: 0 omeprazole 40 mg capsule,delayed release(DR/EC) 40 mg PO DAILY RF: 0 levothyroxine 112 mcg tablet 112 mcg PO DAILY Qty: 90 RF: 1 meloxicam 7.5 mg tablet 7.5 mg PO RF: 0 calcium carbonate-vitamin D3 1 EACH tablet 1 each PO DAILY RF: 0 aspirin 81 MG tablet,delayed release (DR/EC) 81 mg PO DAILY RF: 0 allopurinol 300 MG tablet 300 mg PO DAILY RF: 0 acetaminophen [Tylenol Extra Strength] 500 mg tablet 1,000 mg PO Q6H PRN (Reason: pain) Qty: 100 RF: 0 spironolactone 25 mg tablet 25 mg PO DAILY Qty: 90 RF: 3 simvastatin 40 mg tablet 40 mg PO QPM Qty: 90 RF: 3 carvedilol [Coreg] 12.5 mg tablet 12.5 mg PO BID Qty: 180 RF: 3 furosemide 40 mg tablet 40 mg PO .COMPLEX Qty: 180 RF: 3 metolazone 2.5 mg tablet 2.5 mg PO .COMPLEX RF: 0 Primary Care Provider: Annetta Branch Referrals: Annetta Branch MD [Primary Care Provider] - Disposition Disposition: Acute Care [facility]
[2021-10-17 14:20] LABS: Absolute Lymphocyte Count 1.95 X10^3/uL (0.83-4.51); Absolute Neutrophil Count 5.4 X10^3/uL (2.0-7.7); Basophil# 0.03 X10^3/uL; Basophil% 0.4 % (0-1); Eosinophil# 0.25 X10^3/uL; Hemoglobin 10.5 g/dL (12.0-15.0); Lymphocyte # 1.95 X10^3/ul (0.83-4.51); Lymphocyte % 23.1 % (19-41); Mean Corp Hgb Conc 33.9 g/dL (32-36); Mean Corpuscular Hgb 31.7 pg (27.0-32.0); Mean Corpuscular Volume 93.7 fL (81-99); Mean Platelet Vol. 9.7 fl (6.2-12.0); Monocyte# 0.75 X10^3/uL; Monocyte% 8.9 % (0-10); NRBC Flagged by Analyzer 0.2 % (0-5); Neutrophil # 5.42 X10^3/uL (2.7-7.7); Neutrophil % 64.2 % (47-70); Platelet Count 193 K/mm3 (150-450); RBC Distribution Width SD 46.8 fl (35.1-43.9); Red Blood Count 3.31 M/mm3 (4.2-5.4); White Blood Count 8.4 K/mm3 (4.4-11.0)
[2021-10-17] MEDS: Furosemide 40 MG/4 ML Vial IV ×2 (14:20→18:22)
[2021-10-17] MEDS: Ipratropium/Albuterol Sulfate 3 ML AMPUL.NEB INHALATION (14:20)
--- NOTE | 2021-10-17 14:34 | RAD_ITS ---
EXAM: XR CHEST, 1 VIEW : 1940 CLINICAL INDICATION: SOB TECHNIQUE: Frontal view of the chest. This report was created using [email or web address] report generation technology. COMPARISON: 07/06/2021 FINDINGS: LUNGS AND PLEURAL SPACES: Unremarkable. No consolidation or edema. No pneumothorax. No effusion. HEART: Cardiac silhouette is enlarged in size. MEDIASTINUM: Central airways and mediastinal contour are unremarkable. BONES/JOINTS: Unremarkable. SOFT TISSUES: Unremarkable. TUBES, LINES AND DEVICES: Left-sided pacemaker is in stable position. RAD/Chest 1 View (Portable) IMPRESSION: Stable cardiomegaly with no acute pulmonary abnormality. at 1457 Reported and signed by: Timur Mendez MD Electronically Signed: Timur Mendez MD at 14:56 EST Tel , Service support ,
[2021-10-17 14:36] LABS: BNP,B-Type NATRIURETIC PEPTIDE 1892.4 pg/mL (0-100)
[2021-10-17 15:02] LABS: Anion Gap 11 (5-15); BUN 48 mg/dL (7-18); BUN/Creat Ratio 29.1 RATIO (10-20); Chloride 89 mmol/L (98-107); Creatinine, Serum 1.65 mg/dL (0.55-1.02); EST Glomerular Filtration Rate 32 mL/min (>60); Est Glom Filt Rate - Afr Amer 39 mL/min (>60); Estimated Creatinine Clearance 22.87 ml/min; Glucose 119 mg/dL (74-106); Potassium 4.2 mmol/L (3.5-5.1); Sodium Level 126 mmol/L (136-145); Troponin-I HS 26 pg/mL (3.0-54.0)
--- NOTE | 2021-10-17 16:36 | HP.PCM.HOS_ITS ---
Documented by User: Jose WELLER 10/17/21 17:10 HPI - General General Date of Admission: 10/17/21 HPI Narrative DESIRAE BRYANT is a 81-year-old female who presents to the ED at [facility] on 10/17/2021 for progressively worsening shortness of breath. Patient reports that she recently had a medication change with regards to her Lasix and diuretic. Patient reports that her Lasix were recently increased to 80 mg in the morning and 40 mg at night, in addition to spironolactone 25 mg p.o. daily. Patient reports that this is not improved her shortness of breath and that she feels increasingly short of breath with exertion. Patient also endorses orthopnea and swelling in the abdomen and legs, but denies paroxysmal nocturnal dyspnea. Patient follows with Dr. Escudero from cardiology and recently had an echocardiogram completed in August 2021 which demonstrated normal LV size, an estimated EF of 35%, stage II diastolic dysfunc tion, moderate eccentric mitral valve insufficiency and moderate pulmonary hypertension with a pulmonary artery systolic pressure of 55 mmHg. It was noted on last echocardiogram that the left ventricular systolic function had worsened from prior study. Vital signs are temperature of 98.0 ?F, HR of 71, BP of 106/69, RR of 20 and patient is currently satting 94% on room air. CBC shows WBCs at 8.4, hemoglobin of 10.5 and platelets at 193,000. BMP demonstrates hyponatremia at 126 and an elevated creatinine at 1.65. Chest x-ray demonstrates stable cardiomegaly with no acute pulmonary abnormality. Patient was given IV Lasix and DuoNeb's in the ED. [facility] Medical History Arthritis Atrial enlargement, bilateral Chronic combined systolic and diastolic CHF (congestive heart failure) COPD (chronic obstructive pulmonary disease) Dilated cardiomyopathy Essential (primary) hypertension HLD (hyperlipidemia) Hypotension Hypothyroidism, iatrogenic Lightheadedness Mitral valve disorder Mouth ulcers Non-ischemic cardiomyopathy Nonrheumatic mitral (valve) insufficiency Obesity Paroxysmal supraventricular tachycardia Recurrent cancer of left breast Secondary pulmonary arterial hypertension Shortness of breath Home Medications calcium carbonate-vitamin D3 1 each PO DAILY 08/08/14 [History Last Taken 10/17/21] aspirin 81 mg PO DAILY 05/24/16 [History Last Taken 10/16/21] allopurinol 300 mg PO DAILY 09/09/17 [History Last Taken 10/17/21] cholecalciferol (vitamin D3) 25 mcg (1,000 unit) capsule 25 mcg PO DAILY 07/21/20 [History Last Taken 10/17/21] multivitamin 1 tablet PO DAILY 01/19/21 [History Last Taken 10/17/21] omeprazole 40 mg capsule,delayed release 40 mg PO DAILY 03/15/21 [History Last Taken 10/17/21] acetaminophen [Tylenol Extra Strength] 1,000 mg PO Q6H PRN #100 tab 03/17/21 [Rx Last Taken Unknown] meloxicam 7.5 mg tablet 7.5 mg PO DAILY PRN tab 09/27/21 [History Last Taken Unknown] carvedilol [Coreg] 12.5 mg PO BID 10/17/21 [History Last Taken 10/17/21] furosemide 80 mg PO BID 10/17/21 [History Last Taken Unknown] levothyroxine 112 mcg PO DAILY 10/17/21 [History Last Taken 10/17/21] simvastatin 40 mg PO QPM 10/17/21 [History Last Taken 10/16/21] spironolactone 25 mg PO DAILY 10/17/21 [History Last Taken 10/17/21] Allergy/AdvReac Type Severity Reaction Status Date / Time cephalexin Allergy Severe Rash Verified 10/17/21 13:28 paclitaxel [From Taxol] Allergy Severe PASS OUT Verified 10/17/21 13:28 amoxicillin AdvReac Severe C-DIFF Verified 10/17/21 13:28 hydrocodone AdvReac Vomiting Verified 10/17/21 13:28 TAPE Allergy Severe RASH, ITCH Uncoded 10/17/21 13:28 Family History Mother , age 90 CHF (congestive heart failure) Cancer Breast cancer CAD (coronary artery disease) Brother , age 71 CHF (congestive heart failure) Hx of CABG Brother CAD (coronary artery disease) Daughter Asthma Surgical History H/O right and left heart catheterization History of bilateral knee replacement History of carpal tunnel release of both wrists History of hysterectomy History of implantable cardiac defibrillator (ICD) (08/22/14) History of left heart catheterization History of left knee replacement History of lumpectomy of left breast History of shoulder surgery Hx of cholecystectomy Social History (Updated 10/17/21 @ 17:24 by Candy Herbert) household members: spouse housing: house pets and animals: No Smoking Status: Never smoker alcohol intake: never substance use type: does not use caffeine: No what type of physical activity do you participate in: bicycling and other frequency: 3-4 times per week duration: 15-30 minutes/day seatbelt use: always do you feel safe at home: Yes ROS Constitutional Constitutional: Denies anorexia, change in weight, chills, fatigue, fever(s), malaise, night sweats, weakness or other Eyes Eyes: Denies blurry vision, change in eye color, change in vision, discharge from eye(s), double vision, erythema, eye pain, loss of vision or other ENT HEENT: Denies abnormal hearing, dysphagia, ear pain, epistaxis, headache(s), hearing loss, nasal congestion, nasal discharge, post nasal drip, sinus pressure, sore throat or other Cardiovascular Cardiovascular: Reports dyspnea on exertion; Denies chest pain, claudication, edema, lightheadedness, orthopnea, palpitations, paroxysmal nocturnal dyspnea, rapid heart rate, syncope or other Respiratory/Chest Respiratory/Chest: Reports shortness of breath with exertion; Denies cough, dyspnea, excessive phlegm production, hemoptysis, productive cough, shortness of breath at rest, wheezing or other Gastrointestinal Gastrointestinal: Denies abdominal pain, coffee ground emesis, constipation, diarrhea, dyspepsia, hematemesis, hematochezia, loose stools, melena, nausea, vomiting or other Genitourinary Genitourinary: Denies burning urination, difficulty urinating, dysuria, hematuria, nocturia, urinary frequency, urinary hesitancy, urinary incontinence, urinary urgency or other Musculoskeletal Musculoskeletal: Denies arthralgias, back pain, joint pain, joint stiffness, joint swelling, myalgias, neck pain or other Neurologic Neurologic: Denies abnormal gait, abnormal speech, confusion, disequilibrium, dizziness, focal weakness, headache(s), numbness, paresthesias, seizure-like activity, seizures, syncope, tingling, tremor(s) or other Psychiatric Psychiatric: Denies anxiety, depression, homicidal ideation, suicidal ideation or other Endocrine Endocrinology: Denies change in body appearance, cold intolerance, excessive sweating, heat intolerance, polydipsia, polyuria or other Hematologic/Lymphatic Hematologic/Lymphatic: Denies anemia, easy bleeding, easy bruising, lymphaden opathy or other Allergic/Immunologic Allergic/Immunologic: Denies rhinitis, hives, eczemia, asthma or other Vital Signs Vital Signs Vital Signs: 10/17/21 13:26 10/17/21 14:21 10/17/21 14:36 Temperature 98 F Temperature Source Temporal Pulse Rate 71 84 Respiratory Rate 20 H 16 Respiratory Effort Short of Breath Respiratory Pattern Normal Blood Pressure 145/120 H Blood Pressure Mean 128 Pulse Ox 94 97 Oxygen Delivery Method Room Air Room Air 10/17/21 16:18 Temperature 98 F Temperature Source Temporal Pulse Rate 79 Respiratory Rate 18 Respiratory Effort Respiratory Pattern Blood Pressure 106/69 Blood Pressure Mean 81 Pulse Ox 97 Oxygen Delivery Method Room Air Weight Weight: 199 lb 11.2 oz Body Mass Index (BMI) 35.4 Physical Exam Const alert and oriented x3 General Appearance: cooperative HEENT normocephalic, head/scalp atraumatic and hearing grossly normal bilaterally Eyes PERRL, EOMs intact bilaterally and conjunctivae normal Neck no lymphadenopathy, supple and no JVD Resp normal respiratory effort, no retractions, no use of accessory muscles and clear to auscultation bilaterally Cardio regular rate, regular rhythm, no murmurs and no JVD GI normal to inspection, nondistended, normoactive bowel sounds, soft to palpation and non-tender Extremity normal to inspection, full ROM and no clubbing, cyanosis or edema Skin no rashes or lesions noted, no wounds and skin turgor normal Neuro CN's II-XII intact bilaterally Psych affect normal Results Lab / Micro Data Result Diagrams: 10/17/21 14:05 10/17/21 14:05 Labs: Laboratory Results - last 24 hr 10/17/21 14:05: WBC 8.4, RBC 3.31 L, Hgb 10.5 L, Hct 31.0 L, MCV 93.7, MCH 31.7, MCHC 33.9, RDW Std Deviation 46.8 H, RDW Coeff of Cookie 14.0, Plt Count 193, MPV 9.7, Immature Gran % (Auto) 0.400, Neut % (Auto) 64.2, Lymph % (Auto) 23.1, Castro % (Auto) 8.9, Eos % (Auto) 3.0, Baso % (Auto) 0.4, Absolute Neuts (auto) 5.4, Absolute Lymphs (auto) 1.95, Nucleated RBC % 0.2 10/17/21 14:05: Sodium 126 L, Potassium 4.2, Chloride 89 L, Carbon Dioxide 26.0, Anion Gap 11, BUN 48 H, Creatinine 1.65 H, Estim Creat Clear Calc 22.87, Est GFR (MDRD) Af Amer 39 L, Est GFR (MDRD) Non-Af 32 L, BUN/Creatinine Ratio 29.1 H, Glucose 119 H, Calcium 9.0, Troponin I High Sens 26 10/17/21 14:05: B-Natriuretic Peptide 1892.4 H Radiology Impression Chest X-Ray 10/17/21 14:34 IMPRESSION: Stable cardiomegaly with no acute pulmonary abnormality. at 1457 Reported and signed by: Timur Mendez MD Electronically Signed: Timur Mendez MD at 14:56 EST Tel , Service support , Assessment & Plan Assessment/Plan (1) Congestive heart failure: (2) Failure of outpatient treatment: PLAN: Patient is a 81-year-old female who presents to the ED at [facility] on 10/17/2021 with a chief complaint of progressively worsening shortness of breath. Patient will be admitted for management of CHF exacerbation. 1) Acute on chronic mixed CHF exacerbation in the setting of failed outpatient therapy Patient reports that she recently had her Lasix dose adjusted with the addition of spironolactone. Patient reports that no improvement in her shortness of breath with these medication changes. Chest x-ray demonstrates stable cardiomegaly with no acute cardiopulmonary process. BNP elevated at 1892. Patient follows with Dr. Escudero and had echocardiogram completed in August which noted normal LV size, an EF of 35%, stage II diastolic dysfunction, moderate eccentric mitral valve insufficiency and moderate pulmonary hypertension with a pulmonary artery systolic pressure of 55 mmHg. Plan; mid to PCU for cardiac monitoring, CBC and BMP in a.m., cardiac diet ordered, monitor I's and O's, monitor daily weights, cardiology consult ordered, IV Lasix 40 mg twice daily ordered. 2) hyponatremia Sodium currently 126, likely related to overly aggressive diuresis in regards to #1. We will hold spironolactone, but continue Lasix as above. Continue to monitor BMP. 3) DARRICK on CKD stage IIIb Creatinine currently 1.65, likely cardiorenal syndrome. Cardiology consult ordered for appropriate diuresis. Continue to monitor BMP. 4) Stage 1 left breast cancer, infiltrating ductal type, ER posiitve Follows with Dr. Mcdonough, last seen in February 2021 where she was taken off of letrozole in preparation for surgery. Unclear if she has restarted letrozole or whether she is on any other chemotherapeutic agent. CODE STATUS: DNRCC-A, no intubation Advance care planning: Patient's is patient's healthcare power of patent prosecution attorney and can make decisions for patient in the event that she cannot herself. DVT prophylaxis - Heparin Patient seen by Jose Frederick PA-C, under the supervision of Dr. Aguirre. Documented by User: Dr. Myles Aguirre MD 10/17/21 18:22 HPI - General General Date of Admission: 10/17/21 [facility] Medical History Arthritis Atrial enlargement, bilateral Chronic combined systolic and diastolic CHF (congestive heart failure) COPD (chronic obstructive pulmonary disease) Dilated cardiomyopathy Essential (primary) hypertension HLD (hyperlipidemia) Hypotension Hypothyroidism, iatrogenic Lightheadedness Mitral valve disorder Mouth ulcers Non-ischemic cardiomyopathy Nonrheumatic mitral (valve) insufficiency Obesity Paroxysmal supraventricular tachycardia Recurrent cancer of left breast Secondary pulmonary arterial hypertension Shortness of breath Home Medications calcium carbonate-vitamin D3 1 each PO DAILY 08/08/14 [History Last Taken 09/21 07/10] aspirin 81 mg PO DAILY 05/24/16 [History Last Taken 10/16/21] allopurinol 300 mg PO DAILY 09/09/17 [History Last Taken 10/17/21] cholecalciferol (vitamin D3) 25 mcg (1,000 unit) capsule 25 mcg PO DAILY 07/21/20 [History Last Taken 10/17/21] multivitamin 1 tablet PO DAILY 01/19/21 [History Last Taken 10/17/21] omeprazole 40 mg capsule,delayed release 40 mg PO DAILY 03/15/21 [History Last Taken 10/17/21] acetaminophen [Tylenol Extra Strength] 1,000 mg PO Q6H PRN #100 tab 03/17/21 [Rx Last Taken Unknown] meloxicam 7.5 mg tablet 7.5 mg PO DAILY PRN tab 09/27/21 [History Last Taken Unknown] carvedilol [Coreg] 12.5 mg PO BID 10/17/21 [History Last Taken 10/17/21] furosemide 80 mg PO BID 10/17/21 [History Last Taken Unknown] levothyroxine 112 mcg PO DAILY 10/17/21 [History Last Taken 10/17/21] simvastatin 40 mg PO QPM 10/17/21 [History Last Taken 10/16/21] spironolactone 25 mg PO DAILY 10/17/21 [History Last Taken 10/17/21] Allergy/AdvReac Type Severity Reaction Status Date / Time cephalexin Allergy Severe Rash Verified 10/17/21 13:28 paclitaxel [From Taxol] Allergy Severe PASS OUT Verified 10/17/21 13:28 amoxicillin AdvReac Severe C-DIFF Verified 10/17/21 13:28 hydrocodone AdvReac Vomiting Verified 10/17/21 13:28 TAPE Allergy Severe RASH, ITCH Uncoded 10/17/21 13:28 Family History Mother , age 90 CHF (congestive heart failure) Cancer Breast cancer CAD (coronary artery disease) Brother , age 71 CHF (congestive heart failure) Hx of CABG Brother CAD (coronary artery disease) Daughter Asthma Surgical History H/O right and left heart catheterization History of bilateral knee replacement History of carpal tunnel release of both wrists History of hysterectomy History of implantable cardiac defibrillator (ICD) (08/22/14) History of left heart catheterization History of left knee replacement History of lumpectomy of left breast History of shoulder surgery Hx of cholecystectomy Social History (Updated 10/17/21 @ 17:24 by Candy Herbert) household members: spouse housing: house pets and animals: No Smoking Status: Never smoker alcohol intake: never substance use type: does not use caffeine: No what type of physical activity do you participate in: bicycling and other frequency: 3-4 times per week duration: 15-30 minutes/day seatbelt use: always do you feel safe at home: Yes Results Lab / Micro Data Result Diagrams: 10/17/21 14:05 10/17/21 14:05 Charges/Coding Addendum Addendum: Dr. Aguirre: I personally reviewed the chart and examined the patient, and agree with the above findings. 81-year-old female with a history of systolic and diastolic CHF presents to the hospital with orthopnea and increased dyspnea on exertion. Her initial troponin on admission was 26 but her BNP was 1892, her risk intern has been trying to adjust her medications she is currently on metolazone as well as Aldactone and the increased her Lasix to 80 mg in the morning and 40 mg at night. Unfortunately her creatinine is stable but her sodium is 126 and she is still feeling short of breath. She does state that she eats an appropriate diet at home and limit salt and fluid intake though on my evaluation here in the hospital she is eating a pizza. She is not requiring any oxygen at rest but she does have difficulty lying flat. No significant lower extremity edema is noted. We will have her follow-up with cardiology while here, she did have an echo in August which showed an EF of 35% and stage II diastolic dysfunction. Her pulmonary artery systolic pressure was elevated to 55 mmHg. We will continue with IV Lasix 40 mg twice daily but given her sodium we will hold off on her Aldactone and her metolazone. Visit Charges OBSV E&M: [id number] Initial observation care L3
[2021-10-17 16:45] LABS: Thyroid Stim Hormone (TSH) 7.17 uIU/mL (0.358-3.74)
--- NOTE | 2021-10-17 16:50 | PCS.PANDOC ---
PANDEMIC DOCUMENTATION INITIATED: Date: 07/05/2021 Time: 190
[2021-10-17] MEDS: Heparin Injection (Vial) 5,000 UNIT/ML VIAL 5000 UNIT SC (21:41)
[2021-10-18] MEDS: MELATONIN 3 MG TABLET PO (00:17)
[2021-10-18 03:00] VITALS: PULSE 77
[2021-10-18 03:51] VITALS: BP 100/58; PULSE 82; RESP 18; TEMP 36.7; O2SAT 97
[2021-10-18 07:00] VITALS: PULSE 79
[2021-10-18 07:51] LABS: Absolute Lymphocyte Count 1.82 X10^3/uL (0.83-4.51); Absolute Neutrophil Count 6.8 X10^3/uL (2.0-7.7); Basophil# 0.05 X10^3/uL; Basophil% 0.5 % (0-1); Eosinophil# 0.25 X10^3/uL; Eosinophils% 2.6 % (0-5); Hematocrit 34.9 % (37-47); Hemoglobin 11.8 g/dL (12.0-15.0); Lymphocyte # 1.82 X10^3/ul (0.83-4.51); Lymphocyte % 18.6 % (19-41); Mean Corp Hgb Conc 33.8 g/dL (32-36); Mean Corpuscular Hgb 31.8 pg (27.0-32.0); Mean Corpuscular Volume 94.1 fL (81-99); Mean Platelet Vol. 9.4 fl (6.2-12.0); Monocyte# 0.86 X10^3/uL; Monocyte% 8.8 % (0-10); NRBC Flagged by Analyzer 0 % (0-5); Neutrophil # 6.75 X10^3/uL (2.7-7.7); Neutrophil % 69.1 % (47-70); Platelet Count 205 K/mm3 (150-450); RBC Distribution Width CV 14.2 % (11.6-14.6); RBC Distribution Width SD 47.8 fl (35.1-43.9); Red Blood Count 3.71 M/mm3 (4.2-5.4); White Blood Count 9.8 K/mm3 (4.4-11.0)
[2021-10-18 08:16] LABS: Anion Gap 10 (5-15); BUN 46 mg/dL (7-18); BUN/Creat Ratio 34.3 RATIO (10-20); Calcium,Total 9.3 mg/dL (8.5-10.1); Chloride 91 mmol/L (98-107); Creatinine, Serum 1.34 mg/dL (0.55-1.02); EST Glomerular Filtration Rate 41 mL/min (>60); Est Glom Filt Rate - Afr Amer 49 mL/min (>60); Estimated Creatinine Clearance 28.16 ml/min; Glucose 89 mg/dL (74-106); Potassium 3.4 mmol/L (3.5-5.1); Sodium Level 130 mmol/L (136-145)
[2021-10-18 08:55] VITALS: BP 108/63; PULSE 76; RESP 16; TEMP 36.6; O2SAT 97
[2021-10-18] MEDS: Heparin Injection (Vial) 5,000 UNIT/ML VIAL 5000 UNIT SC (08:58)
[2021-10-18] MEDS: Furosemide 40 MG/4 ML Vial IV (08:58)
--- NOTE | 2021-10-18 09:58 | CON.PCM.CA_ITS ---
Assessment & Plan Assessment/Plan (1) Congestive heart failure: PLAN: She does appear to have congestive heart failure which is systolic in origin. My recommendation at this time is for her to receive intravenous Lasix and for her to continue her beta-elizabeth. * Her ejection fraction is estimated at 35%. * The exact etiology of her heart failure is not clear but it does not appear to be ischemic in origin. * I will suggest starting Entresto to her regimen in addition to the beta- elizabeth. * She may also need the addition of spironolactone (2) Non-ischemic cardiomyopathy: PLAN: She does have a history of nonischemic cardiomyopathy and the plan is to continue the current medical therapy as outlined above. (3) History of implantable cardiac defibrillator (ICD): PLAN: She is status post ICD implantation. We will reinterrogate her ICD to make sure that she is adequately biventricular pacing. If not we should make sure that she is not RV pacing which has led to reduction in left ventricular systolic function. HPI Consult Data Date of Consult: 10/18/21 HPI Narrative HPI Narrative: DESIRAE BRYANT, is a 81 F who presents to the emergency room with progressive shortness of breath. She does have a history of nonischemic cardiomyopathy, ventricular tachyarrhythmia status post ICD implantation. This is for primary prevention. She also has a history of hypertension and hyperlipidemia and breast carcinoma. She had presented to the office complaining of shortness of breath which was getting worse over the last 6 months. As part of her evaluation she underwent an echocardiographic evaluation which demonstrated reduction in her left ventricular systolic function with estimated ejection fraction at 35%. She does have a [employer] device. She had noted mild pedal edema. She denied any chest pain. She did have a stress test in January of this year which demonstrated no evidence of ischemia. In addition evaluation of her ICD did not demonstrate any episodes of atrial fibrillation. She was seen in the hospital and treated with IV diuretics with improvement in her symptomatology. [facility] Medical History Arthritis Atrial enlargement, bilateral Chronic combined systolic and diastolic CHF (congestive heart failure) COPD (chronic obstructive pulmonary disease) Dilated cardiomyopathy Essential (primary) hypertension HLD (hyperlipidemia) Hypotension Hypothyroidism, iatrogenic Lightheadedness Mitral valve disorder Mouth ulcers Non-ischemic cardiomyopathy Nonrheumatic mitral (valve) insufficiency Obesity Paroxysmal supraventricular tachycardia Recurrent cancer of left breast Secondary pulmonary arterial hypertension Shortness of breath Home Medications calcium carbonate-vitamin D3 1 each PO DAILY 08/08/14 [History Last Taken 10/17/21] aspirin 81 mg PO DAILY 05/24/16 [History Last Taken 10/16/21] allopurinol 300 mg PO DAILY 09/09/17 [History Last Taken 10/17/21] cholecalciferol (vitamin D3) 25 mcg (1,000 unit) capsule 25 mcg PO DAILY 07/21/20 [History Last Taken 10/17/21] multivitamin 1 tablet PO DAILY 01/19/21 [History Last Taken 10/17/21] omeprazole 40 mg capsule,delayed release 40 mg PO DAILY 03/15/21 [History Last Taken 10/17/21] acetaminophen [Tylenol Extra Strength] 1,000 mg PO Q6H PRN #100 tab 03/17/21 [Rx Last Taken Unknown] meloxicam 7.5 mg tablet 7.5 mg PO DAILY PRN tab 09/27/21 [History Last Taken Unknown] carvedilol [Coreg] 12.5 mg PO BID 10/17/21 [History Last Taken 10/17/21] furosemide 80 mg PO BID 10/17/21 [History Last Taken Unknown] levothyroxine 112 mcg PO DAILY 10/17/21 [History Last Taken 10/17/21] simvastatin 40 mg PO QPM 10/17/21 [History Last Taken 10/16/21] spironolactone 25 mg PO DAILY 10/17/21 [History Last Taken 10/17/21] Allergy/AdvReac Type Severity Reaction Status Date / Time cephalexin Allergy Severe Rash Verified 10/17/21 13:28 paclitaxel [From Taxol] Allergy Severe PASS OUT Verified 10/17/21 13:28 amoxicillin AdvReac Severe C-DIFF Verified 10/17/21 13:28 hydrocodone AdvReac Vomiting Verified 10/17/21 13:28 TAPE Allergy Severe RASH, ITCH Uncoded 10/17/21 13:28 Family History Mother , age 90 CHF (congestive heart failure) Cancer Breast cancer CAD (coronary artery disease) Brother , age 71 CHF (congestive heart failure) Hx of CABG Brother CAD (coronary artery disease) Daughter Asthma Surgical History H/O right and left heart catheterization History of bilateral knee replacement History of carpal tunnel release of both wrists History of hysterectomy History of implantable cardiac defibrillator (ICD) (08/22/14) History of left heart catheterization History of left knee replacement History of lumpectomy of left breast History of shoulder surgery Hx of cholecystectomy Social History household members: spouse housing: house pets and animals: No Smoking Status: Never smoker alcohol intake: never substance use type: does not use caffeine: No what type of physical activity do you participate in: bicycling and other frequency: 3-4 times per week duration: 15-30 minutes/day seatbelt use: always do you feel safe at home: Yes ROS Constitutional Constitutional: Denies fever(s) or weight loss Eyes Eyes: Reports systems reviewed and no addt'l complaints, except as documented ENT HEENT: Reports systems reviewed and no addt'l complaints, except as documented Cardiovascular Cardiovascular: Denies chest pain at rest, chest pain with activity, dyspnea at rest, dyspnea on exertion, edema, palpitations or paroxysmal nocturnal dyspnea Respiratory/Chest Respiratory/Chest: Denies dyspnea on exertion, productive cough, shortness of breath at rest or shortness of breath with exertion Gastrointestinal Gastrointestinal: Denies change in bowel habits, nausea, vomiting or weight changes Genitourinary Genitourinary: Denies difficulty urinating Musculoskeletal Musculoskeletal: Denies joint stiffness or muscle weakness Integumentary Integumentary: Denies lesions Neurologic Neurologic: Denies dizziness or syncope Psychiatric Psychiatric: Denies anxiety Endocrine Endocrinology: Denies excessive sweating or fatigue Hematologic/Lymphatic Hematologic/Lymphatic: Denies anemia Allergic/Immunologic Allergic/Immunologic: Denies seasonal rhinorrhea Physical Exam Const alert, oriented x3 and no apparent distress General Appearance: cooperative HEENT hearing grossly normal bilaterally Head and Scalp: atraumatic Eyes EOMs intact bilaterally Neck General: normal visual inspection Chest inspection of chest normal and palpation of chest normal Resp normal respiratory effort Auscultation: clear to auscultation bilaterally Cardio regular rate, regular rhythm, S1 normal heart sound and S2 normal heart sound Jugular Venous Distention: JVD GI normal to inspection, nondistended, normoactive bowel sounds Extremity normal capillary refill and no pedal edema Peripheral Pulses: Yes pulses 2+ throughout and femoral pulses present Skin no rashes or lesions noted Neuro oriented x3 and CN's II-XII intact bilaterally Psych Appearance: grossly normal and appropriate Risk Stratification Risk Stratification Applicable: No Objective Data Vital Signs: Vital Signs Temp Pulse Resp BP Pulse Ox 97.9 F 76 16 108/63 97 10/18/21 08:55 10/18/21 08:55 10/18/21 08:55 10/18/21 08:55 10/18/21 08:55 Oxygen Delivery Method Room Air Weight: 195 lb 5.273 oz Body Mass Index (BMI) 34.5 Intake & Output: Intake and Output for Last 24 Hours 10/16/21 10/17/21 10/18/21 23:59 23:59 23:59 Output Total 1200 / 1200 Balance -1200 / -1200 Lab / Micro Data Result Diagrams: 10/18/21 07:30 10/18/21 07:30 Labs: Laboratory Results - last 24 hr 10/17/21 14:05: WBC 8.4, RBC 3.31 L, Hgb 10.5 L, Hct 31.0 L, MCV 93.7, MCH 31.7, MCHC 33.9, RDW Std Deviation 46.8 H, RDW Coeff of Cookie 14.0, Plt Count 193, MPV 9.7, Immature Gran % (Auto) 0.400, Neut % (Auto) 64.2, Lymph % (Auto) 23.1, [place] % (Auto) 8.9, Eos % (Auto) 3.0, Baso % (Auto) 0.4, Absolute Neuts (auto) 5.4, Absolute Lymphs (auto) 1.95, Nucleated RBC % 0.2 10/17/21 14:05: Sodium 126 L, Potassium 4.2, Chloride 89 L, Carbon Dioxide 26.0, Anion Gap 11, BUN 48 H, Creatinine 1.65 H, Estim Creat Clear Calc 22.87, Est GFR (MDRD) Af Amer 39 L, Est GFR (MDRD) Non-Af 32 L, BUN/Creatinine Ratio 29.1 H, Glucose 119 H, Calcium 9.0, Troponin I High Sens 26 10/17/21 14:05: B-Natriuretic Peptide 1892.4 H 10/17/21 14:05: TSH 7.17 H 10/18/21 07:30: WBC 9.8, RBC 3.71 L, Hgb 11.8 L, Hct 34.9 L, MCV 94.1, MCH 31.8, MCHC 33.8, RDW Std Deviation 47.8 H, RDW Coeff of Cookie 14.2, Plt Count 205, MPV 9.4, Immature Gran % (Auto) 0.400, Neut % (Auto) 69.1, Lymph % (Auto) 18.6 L, [place] % (Auto) 8.8, Eos % (Auto) 2.6, Baso % (Auto) 0.5, Absolute Neuts (auto) 6.8, Absolute Lymphs (auto) 1.82, Nucleated RBC % 0 10/18/21 07:30: Sodium 130 L, Potassium 3.4 L, Chloride 91 L, Carbon Dioxide 29.0, Anion Gap 10, BUN 46 H, Creatinine 1.34 H, Estim Creat Clear Calc 28.16, Est GFR (MDRD) Af Amer 49 L, Est GFR (MDRD) Non-Af 41 L, BUN/Creatinine Ratio 34.3 H, Glucose 89, Calcium 9.3 Micro: Microbiology 10/17/21 16:14 Nasal Secretion SARS-CoV-2 Antigen (Rapid) - Final Cardiology Labs/Tests 10/17/21 14:05: WBC 8.4, RBC 3.31 L, Hgb 10.5 L, Hct 31.0 L, MCV 93.7, MCH 31.7, MCHC 33.9, Plt Count 193, MPV 9.7, Immature Gran % (Auto) 0.400, Neut % (Auto) 64.2, Lymph % (Auto) 23.1, [place] % (Auto) 8.9, Eos % (Auto) 3.0, Baso % (Auto) 0.4, Absolute Neuts (auto) 5.4, Nucleated RBC % 0.2 10/17/21 14:05: Sodium 126 L, Potassium 4.2, Chloride 89 L, Carbon Dioxide 26.0, Anion Gap 11, BUN 48 H, Creatinine 1.65 H, Est GFR (MDRD) Af Amer 39 L, Est GFR (MDRD) Non-Af 32 L, BUN/Creatinine Ratio 29.1 H, Glucose 119 H, Calcium 9.0 10/17/21 14:05: B-Natriuretic Peptide 1892.4 H 10/18/21 07:30: WBC 9.8, RBC 3.71 L, Hgb 11.8 L, Hct 34.9 L, MCV 94.1, MCH 31.8, MCHC 33.8, Plt Count 205, MPV 9.4, Immature Gran % (Auto) 0.400, Neut % (Auto) 69.1, Lymph % (Auto) 18.6 L, [place] % (Auto) 8.8, Eos % (Auto) 2.6, Baso % (Auto) 0.5, Absolute Neuts (auto) 6.8, Nucleated RBC % 0 10/18/21 07:30: Sodium 130 L, Potassium 3.4 L, Chloride 91 L, Carbon Dioxide 29.0, Anion Gap 10, BUN 46 H, Creatinine 1.34 H, Est GFR (MDRD) Af Amer 49 L, Est GFR (MDRD) Non-Af 41 L, BUN/Creatinine Ratio 34.3 H, Glucose 89, Calcium 9.3 Rhythm: EKG: ECHO: Stress Test: Cardiac Cath: PCI: CT Surgery: Holter monitor: EPS: PPM: CXR: Chest CT Scan: Radiography Diagnostic Testing: Radiology Impression Chest X-Ray 10/17/21 14:34 IMPRESSION: Stable cardiomegaly with no acute pulmonary abnormality. at 1457 Reported and signed by: Timur Mendez MD Electronically Signed: Timur Mendez MD at 14:56 EST Tel , Service support ,
--- NOTE | 2021-10-18 11:03 | CASEMGMT ---
KATE SAMSON assessment: Face to Face with patient for initial transition planning/care coordination assessment. KATE SAMSON introduced self and role at [facility], pt voices understanding and consents to assessment. Pt is sitting up in chair on room air in no distress. Pt is A/Ox4 and answers all questions appropriately. Care providers, pharmacy, and demographics verified. Presentation: worsening edema, weight gain, and dyspnea-hx CHF Admitting dx: Acute on Chronic HF PCP: Jose Carlos Specialists: Sharonda, onc; Kota, cardio Preferred Pharmacy: [facility] [address] Insurance: [facility] Prescription Benefit: Anth[employer] Living Will/HPOA: Pt has LW and is aware that it's on file at [facility]. Pt is unsure whether she has HPOA and it is not on file at [facility]. LNOK: Jose Robertorich Archuleta, Living Arrangements: Pt states lives with in 1 story home and states no concerns at home. Pt states is independent with ADL's. Transportation: Pt states drives self or drives and states no transportation concerns. DME/HHC: Pt has the following DME: [employer], grab bars, and shower chair. Pt states would like [employer] for DME company, if qualifies for oxygen at discharge. Pt states has had HHC in the past s/p knee surgery but has not been to SNF. Pt states no concerns with going home at time of discharge. Pt is retired. Pt states does not smoke cigarettes or drink ETOH. Pt states no further concerns/needs. CM to follow for any further discharge planning/needs. Advised pt to ask for CM if any further questions/concerns/needs arise, voices understanding. Pt Goal: Home Plan[place] KATE SAMSON
--- NOTE | 2021-10-18 11:16 | PCM.DC ---
Discharge Instructions Diet Discharge Diet: No restrictions Activity Discharge Activity: Return to Normal Activity Weight Bearing Status: Weight bearing as tolerated Dressing / Incision Call your doctor if you observe: Fever of 101 or Higher, Numbness or Tingling, Shortness of breath, Dizziness, Chest pain, Increased palpitations (irregular heartbeat) and Calf discomfort Follow Up Care Please Follow Up With: Primary care provider When: Within the next two weeks. Test Results: Test results from this visit will be discussed in further detail at your follow-up appointment, if applicable. Discharge Plan Admission Admit Date/Time: 10/17/21 18:42 Primary Reason for Your Visit: Shortness of breath. Attending Provider: Alex Mcmullen Primary Care Provider: Annetta Branch Consulting Providers: Michael Lara Discharge Orders/Prescriptions Prescriptions: New Entresto 24-26 mg tablet 1 tab PO BID Qty: 60 RF: 0 Continued cholecalciferol (vitamin D3) 25 mcg (1,000 unit) capsule 25 mcg PO DAILY RF: 0 multivitamin Tablet 1 tablet PO DAILY RF: 0 omeprazole 40 mg capsule,delayed release(DR/EC) 40 mg PO DAILY RF: 0 meloxicam 7.5 mg tablet 7.5 mg PO DAILY PRN (Reason: Pain) RF: 0 calcium carbonate-vitamin D3 1 EACH tablet 1 each PO DAILY RF: 0 aspirin 81 MG tablet,delayed release (DR/EC) 81 mg PO DAILY RF: 0 allopurinol 300 MG tablet 300 mg PO DAILY RF: 0 acetaminophen [Tylenol Extra Strength] 500 mg tablet 1,000 mg PO Q6H PRN (Reason: pain) Qty: 100 RF: 0 furosemide 40 mg tablet 80 mg PO BID RF: 0 carvedilol [Coreg] 12.5 mg tablet 12.5 mg PO BID RF: 0 spironolactone 25 mg tablet 25 mg PO DAILY RF: 0 simvastatin 40 mg tablet 40 mg PO QPM RF: 0 levothyroxine 112 mcg tablet 112 mcg PO DAILY RF: 0 Referrals / Follow Up: Diaz Escudero MD [STAFF PHYSICIAN] - Within 2 Weeks Annetta Branch MD [Primary Care Provider] - Within 2 Weeks Disposition Disposition (needs filled in before D/C Order can be placed): Home, Self Care
--- NOTE | 2021-10-18 11:40 | CASEMGMT ---
Per Jose WELLER, pt was on Entresto previously but quit taking d/t cost. Pt provided with Entresto month free card and informational packet that includes pt assist info and pt updated on all, voices understanding. Pt states has not used coupon card in past. Pt also aware to discuss with cardiology office, if there are any other concerns. Judy LOVE CM
[2021-10-18] MEDS: Acetaminophen 325 MG Tablet 650 MG PO (11:53)
[2021-10-18 12:51] VITALS: O2SAT 95; O2SAT 98
--- NOTE | 2021-10-18 12:55 | CASEMGMT ---
Per Leslie LOVE, pt does not qualify for home oxygen at this time. Pt ready for discharge and states no further questions/concerns/needs. Judy LOVE CM
--- NOTE | 2021-10-18 14:19 | PCM.DC.SUM ---
Documented by User: Jose WELLER 10/18/21 14:25 Providers Date of Admission: 10/17/21 Primary Care Physician: Dr. Annetta Branch MD Consultations 10/17/21 16:51 Consult: Cardiology Routine Consulting Provider: Michael Lara Reason for Consult: Edema/CHF med adjustment, hyponatremia EMERGENT Consult: No MD Notified: Yes Date Notified: 10/17/21 Time Notified: 16:13 Method of Notification: Text Reason For Visit: ACUTE ON CHRONIC HEART FAILURE, HYPONATREMIA Diagnosis Discharge Diagnosis (1) Congestive heart failure: Status: Acute Code(s): I50.9 - Heart failure, unspecified (2) Non-ischemic cardiomyopathy: Status: Chronic Code(s): I42.8 - Other cardiomyopathies (3) History of implantable cardiac defibrillator (ICD): Status: Chronic Medications at Discharge Home Medications calcium carbonate-vitamin D3 1 each PO DAILY 08/08/14 aspirin 81 mg PO DAILY 05/24/16 allopurinol 300 mg PO DAILY 09/09/17 cholecalciferol (vitamin D3) 25 mcg (1,000 unit) capsule 25 mcg PO DAILY 07/21/20 multivitamin 1 tablet PO DAILY 01/19/21 omeprazole 40 mg capsule,delayed release 40 mg PO DAILY 03/15/21 acetaminophen [Tylenol Extra Strength] 1,000 mg PO Q6H PRN #100 tab 03/17/21 meloxicam 7.5 mg tablet 7.5 mg PO DAILY PRN tab 09/27/21 carvedilol [Coreg] 12.5 mg PO BID 10/17/21 furosemide 80 mg PO BID 10/17/21 levothyroxine 112 mcg PO DAILY 10/17/21 simvastatin 40 mg PO QPM 10/17/21 spironolactone 25 mg PO DAILY 10/17/21 sacubitril-valsartan [Entresto] 1 tab PO BID #60 tab 10/18/21 Hospital Course Summary of Care Provided Minutes Spent on Discharge: 35 Hospital Course: Patient is a 81-year-old female who presented to the ED on 10/17/2021 with a chief complaint of shortness of breath secondary to CHF exacerbation in the setting of recent home CHF medication change. Patient follows with Dr. Escudero who did see the patient while she was admitted. Dr. Ecsudero recommend continuing all medications and adding Entresto to patient's home regimen. Patient was also diuresed while she was admitted and noted significant improvement in her shortness of breath on day of discharge. Echocardiogram was not obtained on admission due to last echocardiogram we completed in August 2021. Echocardiogram from August demonstrated normal LV size, an EF of 35%, stage II diastolic dysfunction, moderate mitral valve insufficiency, moderate pulmonary hypertension with a pulmonary artery systolic pressure of 55 mmHg, no significant change was noted when compared with prior study. Patient did voice some cost concerns with the addition of Entresto to her home CHF regimen. Case management provided a coupon for patient and advised patient that her coverage would last her until June 2022 and that she could coordinate with the cardiology office for further assistance of affording new Entresto. Patient is to follow-up with cardiology and primary care provider within the next 2 weeks. Patient seen by Jose Frederick PA-C, under the supervision of Dr. Mcmullen. Physical Exam Narrative Patient is a 81-year-old female comfortably resting in a chair, alert and orient x3. Patient reports significant improvement in her shortness of breath from admission. Denies development of any new symptoms overnight. Does not appear in acute distress. Const alert, oriented x3 and no apparent distress HEENT normocephalic, head/scalp atraumatic and hearing grossly normal bilaterally Eyes PERRL, EOMs intact bilaterally and conjunctivae normal Neck no lymphadenopathy, supple and no JVD Resp normal respiratory effort, no retractions, no use of accessory muscles and clear to auscultation bilaterally Cardio regular rate, regular rhythm, no murmurs and no JVD GI normal to inspection, nondistended, normoactive bowel sounds, soft to palpation and non-tender Extremity normal to inspection, full ROM and no clubbing, cyanosis or edema Skin no rashes or lesions noted, no wounds and skin turgor normal Neuro CN's II-XII intact bilaterally Psych affect normal Weight / BMI Weight Weight: 195 lb 5.273 oz Body Mass Index (BMI) 34.5 ABG / Lab / Microbiology Data Result Diagrams: 10/18/21 07:30 10/18/21 07:30 Laboratory: Laboratory Results - last 24 hr 10/17/21 14:05: WBC 8.4, RBC 3.31 L, Hgb 10.5 L, Hct 31.0 L, MCV 93.7, MCH 31.7, MCHC 33.9, RDW Std Deviation 46.8 H, RDW Coeff of Cookie 14.0, Plt Count 193, MPV 9.7, Immature Gran % (Auto) 0.400, Neut % (Auto) 64.2, Lymph % (Auto) 23.1, [place] % (Auto) 8.9, Eos % (Auto) 3.0, Baso % (Auto) 0.4, Absolute Neuts (auto) 5.4, Absolute Lymphs (auto) 1.95, Nucleated RBC % 0.2 10/17/21 14:05: Sodium 126 L, Potassium 4.2, Chloride 89 L, Carbon Dioxide 26.0, Anion Gap 11, BUN 48 H, Creatinine 1.65 H, Estim Creat Clear Calc 22.87, Est GFR (MDRD) Af Amer 39 L, Est GFR (MDRD) Non-Af 32 L, BUN/Creatinine Ratio 29.1 H, Glucose 119 H, Calcium 9.0, Troponin I High Sens 26 10/17/21 14:05: B-Natriuretic Peptide 1892.4 H 10/17/21 14:05: TSH 7.17 H 10/18/21 07:30: WBC 9.8, RBC 3.71 L, Hgb 11.8 L, Hct 34.9 L, MCV 94.1, MCH 31.8, MCHC 33.8, RDW Std Deviation 47.8 H, RDW Coeff of Cookie 14.2, Plt Count 205, MPV 9.4, Immature Gran % (Auto) 0.400, Neut % (Auto) 69.1, Lymph % (Auto) 18.6 L, [place] % (Auto) 8.8, Eos % (Auto) 2.6, Baso % (Auto) 0.5, Absolute Neuts (auto) 6.8, Absolute Lymphs (auto) 1.82, Nucleated RBC % 0 10/18/21 07:30: Sodium 130 L, Potassium 3.4 L, Chloride 91 L, Carbon Dioxide 29.0, Anion Gap 10, BUN 46 H, Creatinine 1.34 H, Estim Creat Clear Calc 28.16, Est GFR (MDRD) Af Amer 49 L, Est GFR (MDRD) Non-Af 41 L, BUN/Creatinine Ratio 34.3 H, Glucose 89, Calcium 9.3 Microbiology: Microbiology 10/17/21 16:14 Nasal Secretion SARS-CoV-2 Antigen (Rapid) - Final Radiography Diagnostic Testing: Radiology Impression Chest X-Ray 10/17/21 14:34 IMPRESSION: Stable cardiomegaly with no acute pulmonary abnormality. at 1457 Reported and signed by: Timur Mendez MD Electronically Signed: Timur Mendez MD at 14:56 EST Tel , Service support , D/C Instructions Discharge Diet: No restrictions Weight Bearing Status: Weight bearing as tolerated Call your doctor if you observe: Fever of 101 or Higher, Numbness or Tingling, Shortness of breath, Dizziness, Chest pain, Increased palpitations (irregular heartbeat) and Calf discomfort Please Follow Up With: Primary care provider When: Within the next two weeks. Meaningful Use Info Meaningful Use Diagnoses (Choose all that apply): CHF CHF ALICIA/ARB ordered at discharge?: Yes Documented LVEF (%): 35 Discharge Plan Admission Admit Date/Time: 10/17/21 18:42 Primary Reason for Your Visit: Shortness of breath. Attending Provider: Alex Mcmullen Primary Care Provider: Annetta Branch Consulting Providers: Michael Lara Discharge Orders/Prescriptions Prescriptions: New Entresto 24-26 mg tablet 1 tab PO BID Qty: 60 RF: 0 Continued cholecalciferol (vitamin D3) 25 mcg (1,000 unit) capsule 25 mcg PO DAILY RF: 0 multivitamin Tablet 1 tablet PO DAILY RF: 0 omeprazole 40 mg capsule,delayed release(DR/EC) 40 mg PO DAILY RF: 0 meloxicam 7.5 mg tablet 7.5 mg PO DAILY PRN (Reason: Pain) RF: 0 calcium carbonate-vitamin D3 1 EACH tablet 1 each PO DAILY RF: 0 aspirin 81 MG tablet,delayed release (DR/EC) 81 mg PO DAILY RF: 0 allopurinol 300 MG tablet 300 mg PO DAILY RF: 0 acetaminophen [Tylenol Extra Strength] 500 mg tablet 1,000 mg PO Q6H PRN (Reason: pain) Qty: 100 RF: 0 furosemide 40 mg tablet 80 mg PO BID RF: 0 carvedilol [Coreg] 12.5 mg tablet 12.5 mg PO BID RF: 0 spironolactone 25 mg tablet 25 mg PO DAILY RF: 0 simvastatin 40 mg tablet 40 mg PO QPM RF: 0 levothyroxine 112 mcg tablet 112 mcg PO DAILY RF: 0 Referrals / Follow Up: Diaz Escudero MD [STAFF PHYSICIAN] - Within 2 Weeks Annetta Branch MD [Primary Care Provider] - Within 2 Weeks Disposition Disposition (needs filled in before D/C Order can be placed): Home, Self Care Documented by User: Dr. Alex Mcmullen MD 10/18/21 15:07 Providers Date of Admission: 10/17/21 Reason For Visit: ACUTE ON CHRONIC HEART FAILURE, HYPONATREMIA Medications at Discharge Home Medications calcium carbonate-vitamin D3 1 each PO DAILY 08/08/14 aspirin 81 mg PO DAILY 05/24/16 allopurinol 300 mg PO DAILY 09/09/17 cholecalciferol (vitamin D3) 25 mcg (1,000 unit) capsule 25 mcg PO DAILY 07/21/20 multivitamin 1 tablet PO DAILY 01/19/21 omeprazole 40 mg capsule,delayed release 40 mg PO DAILY 03/15/21 acetaminophen [Tylenol Extra Strength] 1,000 mg PO Q6H PRN #100 tab 03/17/21 meloxicam 7.5 mg tablet 7.5 mg PO DAILY PRN tab 09/27/21 carvedilol [Coreg] 12.5 mg PO BID 10/17/21 furosemide 80 mg PO BID 10/17/21 levothyroxine 112 mcg PO DAILY 10/17/21 simvastatin 40 mg PO QPM 10/17/21 spironolactone 25 mg PO DAILY 10/17/21 sacubitril-valsartan [Entresto] 1 tab PO BID #60 tab 10/18/21 Hospital Course Summary of Care Provided Minutes Spent on Discharge: 35 Hospital Course: This patient was seen in conjunction with Jose Frederick PA-C. I have independently interviewed and examined the patient and reviewed pertinent historical, laboratory, and other data. Please refer to Jose Frederick PA-C's note for details of this patient's presentation, findings, and recommendations. I have reviewed Jose Frederick PA-C's note and concur with documented findings. In brief, patient is a 81-year-old lady admitted with progressive shortness of breath diagnosed with acute congestive heart failure admitted to monitored bed for subsequent monitoring Hospital course; as documented ABG / Lab / Microbiology Data Result Diagrams: 10/18/21 07:30 10/18/21 07:30 Discharge Plan Admission Admit Date/Time: 10/17/21 18:42 Primary Reason for Your Visit: Shortness of breath. Attending Provider: Alex Mcmullen Primary Care Provider: Annetta Branch Consulting Providers: Michael Lara Discharge Orders/Prescriptions Prescriptions: New Entresto 24-26 mg tablet 1 tab PO BID Qty: 60 RF: 0 Continued cholecalciferol (vitamin D3) 25 mcg (1,000 unit) capsule 25 mcg PO DAILY RF: 0 multivitamin Tablet 1 tablet PO DAILY RF: 0 omeprazole 40 mg capsule,delayed release(DR/EC) 40 mg PO DAILY RF: 0 meloxicam 7.5 mg tablet 7.5 mg PO DAILY PRN (Reason: Pain) RF: 0 calcium carbonate-vitamin D3 1 EACH tablet 1 each PO DAILY RF: 0 aspirin 81 MG tablet,delayed release (DR/EC) 81 mg PO DAILY RF: 0 allopurinol 300 MG tablet 300 mg PO DAILY RF: 0 acetaminophen [Tylenol Extra Strength] 500 mg tablet 1,000 mg PO Q6H PRN (Reason: pain) Qty: 100 RF: 0 furosemide 40 mg tablet 80 mg PO BID RF: 0 carvedilol [Coreg] 12.5 mg tablet 12.5 mg PO BID RF: 0 spironolactone 25 mg tablet 25 mg PO DAILY RF: 0 simvastatin 40 mg tablet 40 mg PO QPM RF: 0 levothyroxine 112 mcg tablet 112 mcg PO DAILY RF: 0 Referrals / Follow Up: Diaz Escudero MD [STAFF PHYSICIAN] - Within 2 Weeks Annetta Branch MD [Primary Care Provider] - Within 2 Weeks Disposition Disposition (needs filled in before D/C Order can be placed): Home, Self Care Charges/Coding Visit Charges Inpatient E&M: 23501 Dis[facility] Hosp Hospital Course Consultations Consultations: Consultations 10/17/21 16:51 Consult: Cardiology Routine Consulting Provider: Michael Lara Reason for Consult: Edema/CHF med adjustment, hyponatremia EMERGENT Consult: No MD Notified: Yes Date Notified: 10/17/21 Time Notified: 16:13 Method of Notification: Text
== END 2021-10-18 14:54 | disposition home or self-care (01) | DRG 291 ==
LOC: ED 16:14 → PCU 19:58
PROVIDERS: Admitting Provider Family Medicine; Emergency Provider Emergency Medicine; PCP Internal Medicine; Visit Provider Internal Medicine
DX: I13.0 Hypertensive heart and chronic kidney disease with heart failure and stage 1 through stage 4 chronic kidney disease, or unspecified chronic kidney disease (principal); N17.9 Acute kidney failure, unspecified; J44.9 Chronic obstructive pulmonary disease, unspecified; I50.43 Acute on chronic combined systolic (congestive) and diastolic (congestive) heart failure; I27.21 Secondary pulmonary arterial hypertension; I42.0 Dilated cardiomyopathy; C50.912 Malignant neoplasm of unspecified site of left female breast; N18.32 Chronic kidney disease, stage 3b; E87.1 Hypo-osmolality and hyponatremia; T50.2X5A Adverse effect of carbonic-anhydrase inhibitors, benzothiadiazides and other diuretics, initial encounter; Y92.9 Unspecified place or not applicable; I95.9 Hypotension, unspecified; I49.1 Atrial premature depolarization; E03.9 Hypothyroidism, unspecified; E78.5 Hyperlipidemia, unspecified; E66.9 Obesity, unspecified; Z68.35 Body mass index [BMI] 35.0-35.9, adult; I25.10 Atherosclerotic heart disease of native coronary artery without angina pectoris; M19.90 Unspecified osteoarthritis, unspecified site; Z66 Do not resuscitate; Z95.810 Presence of automatic (implantable) cardiac defibrillator; Z79.82 Long term (current) use of aspirin; Z79.899 Other long term (current) drug therapy
CPT/HCPCS: 36415; 71045; 80048; 83880; 84443; 84484; 85025; 87426; 93005; 94640; 96372; 96374; 96376; 99218; 99285; A4216; G0378; J1940

== ENCOUNTER → 2021-10-21 13:05 | Outpatient (CLI) | payer MEDICARE, SELFPAY ==
[2021-10-21 15:44] LABS: Anion Gap 10 (5-15); BUN 81 mg/dL (7-18); BUN/Creat Ratio 36.8 RATIO (10-20); Calcium,Total 9.2 mg/dL (8.5-10.1); Chloride 96 mmol/L (98-107); EST Glomerular Filtration Rate 23 mL/min (>60); Est Glom Filt Rate - Afr Amer 28 mL/min (>60); Glucose 109 mg/dL (74-106); Potassium 4.3 mmol/L (3.5-5.1); Sodium Level 133 mmol/L (136-145)
[2021-10-21 16:26] LABS: Free T3 2.5 pg/mL (2.18-3.98); T4 Free Direct 1.26 ng/dL (0.76-1.46); Thyroid Stim Hormone (TSH) 3.54 uIU/mL (0.358-3.74)
== END ==
PROVIDERS: PCP Internal Medicine; Referring Provider Nurse Practitioner Family; Visit Provider Nurse Practitioner Family
DX: E03.2 Hypothyroidism due to medicaments and other exogenous substances (principal); E87.1 Hypo-osmolality and hyponatremia; I42.8 Other cardiomyopathies; I50.9 Heart failure, unspecified; Z79.899 Other long term (current) drug therapy
CPT/HCPCS: 36415; 80048; 84439; 84443; 84481

== ENCOUNTER → 2021-10-28 09:55 | Outpatient (CLI) | payer MEDICARE, SELFPAY ==
[2021-10-28 10:53] LABS: Anion Gap 7 (5-15); BUN 29 mg/dL (7-18); BUN/Creat Ratio 25.2 RATIO (10-20); Chloride 106 mmol/L (98-107); Creatinine, Serum 1.15 mg/dL (0.55-1.02); EST Glomerular Filtration Rate 48 mL/min (>60); Est Glom Filt Rate - Afr Amer 59 mL/min (>60); Glucose 161 mg/dL (74-106); Sodium Level 137 mmol/L (136-145)
--- NOTE | 2021-10-28 16:08 | RAD_ITS ---
STUDY: X-RAY - LEFT SHOULDER REASON FOR EXAM: Female, 81 years old. SHOULDER PAIN L TECHNIQUE: 4 view(s) of the shoulder. COMPARISON: None. FINDINGS: There is cephalad migration of the humeral head consistent with rotator cuff pathology. There are degenerative changes of the glenohumeral joint. There are degenerative changes of the acromioclavicular joint. Normal acromion. Normal humeral head and visualized proximal humerus. The soft tissue structures are unremarkable. There is a cardiac pacer device in place. RAD/Shoulder min 2 Views IMPRESSION: Superior migration of the humeral head suggestive of an underlying rotator cuff injury. Degenerative changes. Electronically Signed: Haritha Shoemaker MD at 16:28 EST Tel , Service support ,
--- NOTE | 2021-10-28 16:08 | RAD_ITS ---
STUDY: X-RAY - RIGHT SHOULDER REASON FOR EXAM: Female, 81 years old. SHOULDER PAIN TECHNIQUE: PICC for view(s) of the shoulder. COMPARISON: None. FINDINGS: There is cephalad migration of the humeral head consistent with rotator cuff pathology. There are degenerative changes of the glenohumeral joint. There are degenerative changes of the acromioclavicular joint. Normal acromion. Normal humeral head and visualized proximal humerus. There is periarticular soft tissue calcification consistent with a calcific tendinitis. Normal visualized pulmonary apex. RAD/Shoulder min 2 Views IMPRESSION: Superior migration of the humeral head suggestive of an underlying rotator cuff injury. Degenerative changes. Calcific tendinitis. Electronically Signed: Haritha Shoemaker MD at 16:27 EST Tel , Service support ,
== END ==
PROVIDERS: PCP Internal Medicine; Referring Provider Nurse Practitioner Family; Visit Provider Nurse Practitioner Family
DX: M25.511 Pain in right shoulder (principal); M25.512 Pain in left shoulder; I50.9 Heart failure, unspecified; Z79.899 Other long term (current) drug therapy
CPT/HCPCS: 36415; 73030; 80048

== ENCOUNTER 2021-11-09 05:29 | Emergency (ER) | payer MEDICARE, SELFPAY ==
[2021-11-09 05:30] VITALS: PULSE 94; RESP 18; TEMP 36.1; O2SAT 98; BMI 36.5
[2021-11-09 05:34] VITALS: BP 115/57
[2021-11-09 05:43] VITALS: BP 120/69; PULSE 69; RESP 18; O2SAT 96; O2SAT 97
--- NOTE | 2021-11-09 05:43 | CT_ITS ---
We are attempting to reach an attending provider to discuss findings. An addendum with communication details will be sent when the communication is complete. STUDY: CT HEAD STROKE PROTOCOL W/O CONTRAST INJECTION REASON FOR EXAM: Female, 81 years old. Neuro deficit, acute, stroke suspected RADIATION DOSAGE (If Supplied By Facility): CTDIvol = ( 44.99 ) mGy, DLP = ( 796.11 ) mGycm TECHNIQUE: Transaxial CT imaging of the brain was performed without administration of intravenous contrast material. Individualized dose optimization techniques were used for this CT. COMPARISON: No relevant priors. FINDINGS: Normal soft tissue structures. Normal calvarium. Normal size ventricles and extra-axial spaces for the patient''s age. Normal white matter tracts of the cerebral hemispheres. Normal basal ganglia and thalami. Normal brainstem. Normal cerebellum. There is no intracranial hemorrhage. There are no findings of an acute ischemic infarction. Normal visualized paranasal sinuses. Bilateral ocular lens replacements. ASPECT score: 10 CT/STROKE Brain/Head without Cont IMPRESSION: No acute abnormal intracranial finding. No CT findings of acute infarct. Electronically Signed: Hernan Jackson MD at 6:22 EST Tel , Service support ,
--- NOTE | 2021-11-09 05:43 | EKG12_ITS ---
Test Reason : Blood Pressure : / mmHG Vent. Rate : 087 BPM Atrial Rate : 087 BPM P-R Int : 176 ms QRS Dur : 104 ms QT Int : 422 ms P-R-T Axes : 048 -08 129 degrees QTc Int : 507 ms Sinus rhythm with Premature supraventricular complexes and with frequent Premature ventricular comple xes Prolonged QT Nonspecific ST and T wave abnormality Abnormal ECG Confirmed by NABEEL FLOREZ, HEMANTH ([id number]), science editor BENNETT WEAVER ([id number]) on 11/15/2021 8:27:26 AM Referred By: SUE Confirmed By:HEMANTH LEES MD
--- NOTE | 2021-11-09 05:47 | EX.ED.DYSGE1 ---
HPI <Dr. Remi Arellano MD - Last Filed: 11/12/21 07:30> History of Present Illness Chief Complaint: Numb/Ting Informant: patient and spouse/S.O. Narrative Narrative: Patient presents with numb feeling to left hand. She is right-hand dominant. Patient had gotten up to go to the restroom at 230 this morning and recalls no symptoms at all at that time. When she woke up at 430 she had some numb feeling to her left hand. Is not painful. It does involve part of the forearm. Her states that she was sleeping on her left side which is not typical for her. However, in the last hour the symptoms have not changed at all. She has no weakness. She has no speech or understanding difficulties. No visual complaints. No difficulties with walking or balance or lower extremity symptoms. Patient does have complex medical history. She was recently in the hospital for CHF. Entresto was started. She is on aspirin but no other anticoagulation. She is not having dyspnea or other symptoms at this time. [facility] <Dr. Remi Arellano MD - Last Filed: 11/12/21 07:30> [facility] Medical History Anemia Arthritis Atrial enlargement, bilateral Chronic combined systolic and diastolic CHF (congestive heart failure) Congestive heart failure COPD (chronic obstructive pulmonary disease) Degenerative disc disease, lumbar Dilated cardiomyopathy Essential (primary) hypertension Failure of outpatient treatment Greater trochanteric bursitis of right hip HLD (hyperlipidemia) Hyponatremia Hypotension Hypothyroidism, iatrogenic IT band syndrome Lightheadedness Low back pain Mitral valve disorder Mouth ulcers Non-ischemic cardiomyopathy Nonrheumatic mitral (valve) insufficiency Obesity On potassium wasting diuretic therapy Palpitations Paroxysmal supraventricular tachycardia Primary osteoarthritis of right knee Recurrent cancer of left breast Right knee pain Right lumbar radiculitis Secondary pulmonary arterial hypertension Shortness of breath Trigger finger, right middle finger Home Medications calcium carbonate-vitamin D3 1 each PO DAILY 08/08/14 [History Last Taken 10/17/21] aspirin 81 mg PO DAILY 05/24/16 [History Last Taken 10/16/21] allopurinol 300 mg PO DAILY 09/09/17 [History Last Taken 10/17/21] cholecalciferol (vitamin D3) 25 mcg (1,000 unit) capsule 25 mcg PO DAILY 07/21/20 [History Last Taken 10/17/21] multivitamin 1 tablet PO DAILY 01/19/21 [History Last Taken 10/17/21] omeprazole 40 mg capsule,delayed release 40 mg PO DAILY 03/15/21 [History Last Taken 10/17/21] acetaminophen [Tylenol Extra Strength] 1,000 mg PO Q6H PRN #100 tab 03/17/21 [Rx Last Taken Unknown] meloxicam 7.5 mg tablet 7.5 mg PO DAILY PRN tab 09/27/21 [History Last Taken Unknown] carvedilol [Coreg] 12.5 mg PO BID 10/17/21 [History Last Taken 10/17/21] levothyroxine 112 mcg PO DAILY 10/17/21 [History Last Taken 10/17/21] simvastatin 40 mg PO QPM 10/17/21 [History Last Taken 10/16/21] furosemide 40 mg tablet 40 mg PO BID tab 10/28/21 [History Last Taken Unknown] sacubitril 24 mg-valsartan 26 mg tablet 1 tab PO BID #60 tab 11/02/21 [Rx Last Taken Unknown] Allergy/AdvReac Type Severity Reaction Status Date / Time cephalexin Allergy Severe Rash Verified 11/10/21 15:47 paclitaxel [From Taxol] Allergy Severe PASS OUT Verified 11/10/21 15:47 amoxicillin AdvReac Severe C-DIFF Verified 11/10/21 15:47 hydrocodone AdvReac Vomiting Verified 11/10/21 15:47 TAPE Allergy Severe RASH, ITCH Uncoded 11/09/21 05:30 Family History Mother , age 90 CHF (congestive heart failure) Cancer Breast cancer CAD (coronary artery disease) Brother , age 71 CHF (congestive heart failure) Hx of CABG Brother CAD (coronary artery disease) Daughter Asthma Surgical History H/O right and left heart catheterization History of bilateral knee replacement History of carpal tunnel release of both wrists History of hysterectomy History of implantable cardiac defibrillator (ICD) (08/22/14) History of left heart catheterization History of left knee replacement History of lumpectomy of left breast History of shoulder surgery Hx of cholecystectomy Social History household members: spouse housing: house pets and animals: No Smoking Status: Never smoker alcohol intake: never substance use type: does not use caffeine: No what type of physical activity do you participate in: bicycling and other frequency: 3-4 times per week duration: 15-30 minutes/day seatbelt use: always do you feel safe at home: Yes ROS <Dr. Remi Arellano MD - Last Filed: 11/12/21 07:30> ROS ED Constitutional Constitutional ED: Denies fever(s) Eyes Eyes: Denies change in vision ENT ENT ED: Denies rhinorrhea Cardiovascular Cardiovascular: Denies chest pain or palpitations Respiratory/Chest Respiratory/Chest: Denies cough or dyspnea Gastrointestinal Gastrointestinal: Denies nausea or vomiting Musculoskeletal Musculoskeletal: Denies arthralgias, back pain, myalgias or neck pain Integumentary Denies rash Neurologic Neurologic: Reports paresthesias; Denies headache(s) or weakness Endocrine Endocrinology: Denies polydipsia or polyuria Allergic/Immunologic Allergic/Immunologic ED: Denies mouth swelling or urticaria EXAM <Dr. Remi Arellano MD - Last Filed: 11/12/21 07:30> Physical Exam Const Vital Signs: 11/09/21 05:30 11/09/21 05:34 11/09/21 05:43 Temperature 96.9 F L Temperature Source Temporal Pulse Rate 94 69 Respiratory Rate 18 18 Blood Pressure 115/57 L 120/69 Blood Pressure Mean 76 86 Pulse Ox 98 96 Oxygen Delivery Method Room Air Room Air Positive well nourished, well developed and obese; Negative for unkempt General Appearance ED: well developed and NAD; Negative for unkempt, cyanotic or diaphoretic Nutritional Appearance: obese HEENT HEENT Narrative: No asymmetry with smile or eye closing. Negative for trauma Eyes EOMs intact bilaterally Eyes Narrative: No visual field cut by confrontation. Neck no JVD Resp normal respiratory effort and clear to auscultation bilaterally Auscultation: Negative for rales Cardio regular rate and regular rhythm Rate: other Other Details: Heart is regular with a rate of approximately 90 on the monitor. She appears to be in a normal sinus rhythm. GI normal to inspection, nondistended, normoactive bowel sounds and non-tender Palpation: soft Back/Spine no CVA tenderness Extremity normal to inspection Extremity Narrative: Peripheral pulses are intact in all extremities including her left arm. General Extremety ED: Negative for edema or tenderness General Extremity: Negative for edema Neuro oriented x3 Neuro Narrative: Her NIH Stroke scale is actually 0. However she does have some sensory changes of her left arm. They do not meet criteria for positive NIH points. They appear to be mostly on the volar forearm and lateral fingers more than medial. They do somewhat match a C5-C6 distribution. However, patient has no neck pain or discomfort. There is also no weakness of handgrip, wrist motion, bicep or tricep function. Sensorium / Orientation: alert; Negative for orientation impaired Psych mental status grossly normal Appearance: Negative for unkempt Skin no rashes or lesions noted and no wounds <Dr. Westley Mace MD - Last Filed: 11/09/21 07:58> Physical Exam Const Vital Signs: 11/09/21 05:30 11/09/21 05:34 11/09/21 05:43 Temperature 96.9 F L Temperature Source Temporal Pulse Rate 94 69 Respiratory Rate 18 18 Blood Pressure 115/57 L 120/69 Blood Pressure Mean 76 86 Pulse Ox 98 96 Oxygen Delivery Method Room Air Room Air MDM <Dr. Remi Arellano MD - Last Filed: 11/12/21 07:30> [facility] MDM Narrative Medical decision making narrative: Patient's blood work shows mild anemia which is not uncommon for patient. Her creatinine is stable at 1.16. Troponin is 24. Coagulation studies are pending. CT scan showed no acute process. Stroke neurologist did video conferencing with the patient. She thought there may be some subtle left leg weakness on initial exam but the patient's gait is normal. She agrees that 2:30 in the morning is the last known well time. Patient is not a TPA candidate. She did recommend loading with Plavix. She stated that the patient could stay here as long as her CTA is normal. This has been ordered. Lab Data Attestation: I reviewed the patient's lab results. Labs: Laboratory Results - last 24 hr 11/09/21 11/09/21 11/09/21 06:24 06:24 06:24 WBC 8.3 RBC 3.46 L Hgb 10.9 L Hct 33.5 L MCV 96.8 MCH 31.5 MCHC 32.5 RDW Std Deviation 51.6 H RDW Coeff of Cookie 14.6 Plt Count 201 MPV 9.9 Immature Gran % (Auto) 0.400 Neut % (Auto) 63.6 Lymph % (Auto) 26.2 [place] % (Auto) 7.8 Eos % (Auto) 1.8 Baso % (Auto) 0.2 Absolute Neuts (auto) 5.3 Absolute Lymphs (auto) 2.18 Nucleated RBC % 0 PT Cancelled INR Cancelled APTT Cancelled Sodium 139 Potassium 3.7 Chloride 105 Carbon Dioxide 28.0 Anion Gap 6 BUN 36 H Creatinine 1.16 H Estim Creat Clear Calc 32.53 Est GFR (MDRD) Af Amer 58 L Est GFR (MDRD) Non-Af 48 L BUN/Creatinine Ratio 31.0 H Glucose 122 H Calcium 8.7 Troponin I High Sens 24 POC Glucose 11/09/21 06:35 WBC RBC Hgb Hct MCV MCH MCHC RDW Std Deviation RDW Coeff of Cookie Plt Count MPV Immature Gran % (Auto) Neut % (Auto) Lymph % (Auto) [place] % (Auto) Eos % (Auto) Baso % (Auto) Absolute Neuts (auto) Absolute Lymphs (auto) Nucleated RBC % PT INR APTT Sodium Potassium Chloride Carbon Dioxide Anion Gap BUN Creatinine Estim Creat Clear Calc Est GFR (MDRD) Af Amer Est GFR (MDRD) Non-Af BUN/Creatinine Ratio Glucose Calcium Troponin I High Sens POC Glucose 117 H Radiography Diagnostic Testing: Clinical Impression(s) from Imaging Studies Brain CT 11/09/21 05:43 IMPRESSION: No acute abnormal intracranial finding. No CT findings of acute infarct. Electronically Signed: Hernan Jackson MD at 6:22 EST Tel , Service support , ADDENDUM: 11/09/21 0632 IMPRESSION: No acute abnormal intracranial finding. No CT findings of acute infarct. N.B. : The above Results were Read Back by Hernan Jackson MD to REMI ARELLANO and understanding confirmed on 11/09/2021 06:25:41 (ET). Electronically Signed: Hernan Jackson MD at 6:22 EST Tel , Service support , Chest X-Ray 11/09/21 06:10 IMPRESSION: No acute abnormal cardiopulmonary finding. No focal consolidation to suggest aspiration pneumonitis. Electronically Signed: Hernan Jackson MD at 6:23 EST Tel , Service support , Head/Neck CTA 11/09/21 06:59 IMPRESSION: Normal CTA Head and neck with contrast. Electronically Signed: Hernan Jackson MD at 7:48 EST Tel , Service support , ADDENDUM: 11/09/21 0757 IMPRESSION: Normal CTA Head and neck with contrast. N.B. : The above Results were Read Back by Hernan Jackson MD to Dr. Mace [id number], and understanding confirmed on 11/09/2021 07:51:01 (ET). Electronically Signed: Hernan Jackson MD at 7:48 EST Tel , Service support , EKG Initial EKG: Comments: EKG done for part of neurologic deficit work-up and read by me shows sinus rhythm with PVCs and PACs. No acute ST elevation or depression. MI interval and QRS duration are normal. QTc is a bit long at 507 ms. <Dr. Westley Mace MD - Last Filed: 11/09/21 07:58> [facility] Lab Data Attestation: I reviewed the patient's lab results. Lab results narrative: CBC reveals mild anemia. Basic metabolic panel reveals a elevated BUN to creatinine ratio with mild renal insufficiency. Glucose elevated 122. Patient was informed why the CTA was performed and what the results were. Patient does not wish to stay. She and her spoke. She will sign out AGAINST MEDICAL ADVICE she was informed of risk benefits of admission and concern for a more significant event over the next 1 to 2 weeks in 90 days. Patient has the capacity to make this decision. She has been informed this may result in more aggressive intervention, disability meaning inability to perform 1 or more activities of daily living which was explained to her in layman's terms. She states she would contact her doctor today. She was informed that things are done much more quickly as an inpatient versus outpatient. Labs: Laboratory Results - last 24 hr 11/09/21 11/09/21 11/09/21 06:24 06:24 06:24 WBC 8.3 RBC 3.46 L Hgb 10.9 L Hct 33.5 L MCV 96.8 MCH 31.5 MCHC 32.5 RDW Std Deviation 51.6 H RDW Coeff of Cookie 14.6 Plt Count 201 MPV 9.9 Immature Gran % (Auto) 0.400 Neut % (Auto) 63.6 Lymph % (Auto) 26.2 [place] % (Auto) 7.8 Eos % (Auto) 1.8 Baso % (Auto) 0.2 Absolute Neuts (auto) 5.3 Absolute Lymphs (auto) 2.18 Nucleated RBC % 0 PT Cancelled INR Cancelled APTT Cancelled Sodium 139 Potassium 3.7 Chloride 105 Carbon Dioxide 28.0 Anion Gap 6 BUN 36 H Creatinine 1.16 H Estim Creat Clear Calc 32.53 Est GFR (MDRD) Af Amer 58 L Est GFR (MDRD) Non-Af 48 L BUN/Creatinine Ratio 31.0 H Glucose 122 H Calcium 8.7 Troponin I High Sens 24 POC Glucose 11/09/21 06:35 WBC RBC Hgb Hct MCV MCH MCHC RDW Std Deviation RDW Coeff of Cookie Plt Count MPV Immature Gran % (Auto) Neut % (Auto) Lymph % (Auto) [place] % (Auto) Eos % (Auto) Baso % (Auto) Absolute Neuts (auto) Absolute Lymphs (auto) Nucleated RBC % PT INR APTT Sodium Potassium Chloride Carbon Dioxide Anion Gap BUN Creatinine Estim Creat Clear Calc Est GFR (MDRD) Af Amer Est GFR (MDRD) Non-Af BUN/Creatinine Ratio Glucose Calcium Troponin I High Sens POC Glucose 117 H Radiography Diagnostic Testing: Clinical Impression(s) from Imaging Studies Brain CT 11/09/21 05:43 IMPRESSION: No acute abnormal intracranial finding. No CT findings of acute infarct. Electronically Signed: Hernan Jackson MD at 6:22 EST Tel , Service support , ADDENDUM: 11/09/21 0632 IMPRESSION: No acute abnormal intracranial finding. No CT findings of acute infarct. N.B. : The above Results were Read Back by Hernan Jackson MD to REMI ARELLANO and understanding confirmed on 11/09/2021 06:25:41 (ET). Electronically Signed: Hernan Jackson MD at 6:22 EST Tel , Service support , Chest X-Ray 11/09/21 06:10 IMPRESSION: No acute abnormal cardiopulmonary finding. No focal consolidation to suggest aspiration pneumonitis. Electronically Signed: Hernan Jackson MD at 6:23 EST Tel , Service support , Head/Neck CTA 11/09/21 06:59 IMPRESSION: Normal CTA Head and neck with contrast. Electronically Signed: Hernan Jackson MD at 7:48 EST Tel , Service support , ADDENDUM: 11/09/21 0757 IMPRESSION: Normal CTA Head and neck with contrast. N.B. : The above Results were Read Back by Hernan Jackson MD to Dr. Mace [id number], and understanding confirmed on 11/09/2021 07:51:01 (ET). Electronically Signed: Hernan Jackson MD at 7:48 EST Tel , Service support , I received a call from radiology regarding the CTA. There is no evidence of large vessel occlusion. Per discussion with the neurologist at [facility] and Dr. Lemus if there was no evidence of large vessel occlusion patient will need admission for stroke work-up. The reason the CTA was obtained was because patient had left-sided weakness and specifically left lower extremity that was noted by the neurologist and not initially noted by Dr. Lemus or nurse who cared for patient upon presentation. Discharge Plan Triage Chief Complaint: Numb/Ting ED Provider: Remi Arellano Dx/Rx/DC Orders Clinical Impression: Acute left-sided weakness, Essential (primary) hypertension, Non-ischemic cardiomyopathy, HLD (hyperlipidemia) Instructions: Discharge Instructions for Stroke, ED Weakness (Uncertain Cause) Prescriptions: No Action cholecalciferol (vitamin D3) 25 mcg (1,000 unit) capsule 25 mcg PO DAILY RF: 0 multivitamin Tablet 1 tablet PO DAILY RF: 0 omeprazole 40 mg capsule,delayed release(DR/EC) 40 mg PO DAILY RF: 0 meloxicam 7.5 mg tablet 7.5 mg PO DAILY PRN (Reason: Pain) RF: 0 furosemide 40 mg tablet 40 mg PO BID RF: 0 calcium carbonate-vitamin D3 1 EACH tablet 1 each PO DAILY RF: 0 aspirin 81 MG tablet,delayed release (DR/EC) 81 mg PO DAILY RF: 0 allopurinol 300 MG tablet 300 mg PO DAILY RF: 0 acetaminophen [Tylenol Extra Strength] 500 mg tablet 1,000 mg PO Q6H PRN (Reason: pain) Qty: 100 RF: 0 carvedilol [Coreg] 12.5 mg tablet 12.5 mg PO BID RF: 0 simvastatin 40 mg tablet 40 mg PO QPM RF: 0 levothyroxine 112 mcg tablet 112 mcg PO DAILY RF: 0 Entresto 24-26 mg tablet 1 tab PO BID Qty: 60 RF: 11 Primary Care Provider: Annetta Branch Referrals: Annetta Branch MD [Primary Care Provider] - Activity Restrictions/Additional Instructions: I was informed by Dr. Mace that the neurologist from [facility] recommended further testing and overnight stay to expedite that further testing. I was informed that the incidence of having a another event within the next 1 to 2 weeks is approximately 10% and the incidence of having a second event in the next 90 days is 20%. I was informed that this may lead to more aggressive intervention and disability which would include but not limited to ability to care for self, bathe self, feeds self and perform activities of daily living. This may result in seizure disorder. This may affect my ability to communicate, understand things, interact with others and need for others to care for me. Disposition Disposition: Against Medical Advice Discharge Date/Time: 11/09/21 08:18 <Dr. Westley Mace MD - Last Filed: 11/09/21 07:58> Capacity Assessment Tool Can the patient make a choice & communicate that choice?: Yes Can the patient understand benefits, risks and alternatives?: Yes Can the patient make a logical, rational choice?: Yes Is the choice the patient makes consistent w/ their values?: Yes Is there an impending, emergent risk to the patient?: Unable to Determine Does the patient have an Advance Directive?: Comment (There is no documentation on record of advance directives. Did discuss patient's present lifestyle and she is very functional.) Is there a Surrogate Available?: Yes i.e. close relative (spouse, child, parent, sibling)?: Comment ( was in the room and they jointly agreed to outpatient work-up and contacting their primary care physician)
--- NOTE | 2021-11-09 06:10 | RAD_ITS ---
STUDY: X-RAY CHEST REASON FOR EXAM: Female, 81 years old. Neuro deficit, acute, stroke suspected TECHNIQUE: Portable, upright, AP chest radiograph COMPARISON: 10/09/2021 FINDINGS: The lungs are clear and expanded. There is no demonstrated pleural abnormality. There is moderate cardiac enlargement. Dual-lead cardiac device. Left chest wall surgical clips. Normal mediastinum and kirk. Normal visualized pulmonary arteries. Normal visualized aortic arch and descending thoracic aorta. There is no demonstrated abnormality of the visualized soft tissue structures of the upper abdomen. RAD/Chest 1 View IMPRESSION: No acute abnormal cardiopulmonary finding. No focal consolidation to suggest aspiration pneumonitis. Electronically Signed: Hernan Jackson MD at 6:23 EST Tel , Service support ,
[2021-11-09 06:40] LABS: Bedside Glucose 117 mg/dL (70-110)
[2021-11-09 06:42] LABS: Absolute Lymphocyte Count 2.18 X10^3/uL (0.83-4.51); Absolute Neutrophil Count 5.3 X10^3/uL (2.0-7.7); Basophil# 0.02 X10^3/uL; Basophil% 0.2 % (0-1); Eosinophil# 0.15 X10^3/uL; Eosinophils% 1.8 % (0-5); Hematocrit 33.5 % (37-47); Hemoglobin 10.9 g/dL (12.0-15.0); Lymphocyte # 2.18 X10^3/ul (0.83-4.51); Lymphocyte % 26.2 % (19-41); Mean Corp Hgb Conc 32.5 g/dL (32-36); Mean Corpuscular Hgb 31.5 pg (27.0-32.0); Mean Corpuscular Volume 96.8 fL (81-99); Mean Platelet Vol. 9.9 fl (6.2-12.0); Monocyte# 0.65 X10^3/uL; Monocyte% 7.8 % (0-10); NRBC Flagged by Analyzer 0 % (0-5); Neutrophil # 5.29 X10^3/uL (2.7-7.7); Neutrophil % 63.6 % (47-70); Platelet Count 201 K/mm3 (150-450); RBC Distribution Width CV 14.6 % (11.6-14.6); RBC Distribution Width SD 51.6 fl (35.1-43.9); Red Blood Count 3.46 M/mm3 (4.2-5.4); White Blood Count 8.3 K/mm3 (4.4-11.0)
[2021-11-09 06:53] LABS: Anion Gap 6 (5-15); BUN 36 mg/dL (7-18); Calcium,Total 8.7 mg/dL (8.5-10.1); Chloride 105 mmol/L (98-107); Creatinine, Serum 1.16 mg/dL (0.55-1.02); EST Glomerular Filtration Rate 48 mL/min (>60); Est Glom Filt Rate - Afr Amer 58 mL/min (>60); Estimated Creatinine Clearance 32.53 ml/min; Glucose 122 mg/dL (74-106); Potassium 3.7 mmol/L (3.5-5.1); Sodium Level 139 mmol/L (136-145); Troponin-I HS 24 pg/mL (3.0-54.0)
--- NOTE | 2021-11-09 06:59 | CT_ITS ---
We are attempting to reach an attending provider to discuss findings. An addendum with communication details will be sent when the communication is complete. STUDY: CTA HEAD AND NECK WITH CONTRAST REASON FOR EXAM: Female, 81 years old. Neuro deficit, acute, stroke suspected, left arm numbness and tingling. RADIATION DOSAGE (If Supplied By Facility): CTDIvol = ( 43.48 ) mGy, DLP = ( 794.72 ) mGycm TECHNIQUE: CT angiography was performed with a multi-detector CT scanner. Data acquisition was obtained from the skull base through the vertex following intravenous administration of IV 100mL [id number]-[id number]. MIP images were reconstructed from the axial data set. Post-processing of the angiographic images was performed, with multiplanar reformation and 3D reconstruction. Individualized dose optimization techniques were used for this CT. COMPARISON: No relevant priors. FINDINGS: Normal bilateral petrous carotid arteries. Normal right cavernous carotid artery with a normal supraclinoid bifurcation. Normal left cavernous carotid artery with a normal supraclinoid bifurcation. Normal right A1 segments of the anterior cerebral artery. Normal left A1 segments of the anterior cerebral artery. Normal intact anterior communicating artery (ACOM). Normal bilateral A2 segments of the anterior cerebral arteries. Normal right M1 and M2 segments of the middle cerebral arteries, with a normal M1 bifurcation. Normal left M1 and M2 segments of the middle cerebral arteries, with a normal M1 bifurcation. Normal right posterior communicating artery (PCOM). Normal left posterior communicating artery (PCOM). Normal bilateral vertebral arteries. Normal basilar artery with a normal basilar bifurcation. The visualized bilateral superior cerebellar (SCA) arteries are normal. Normal bilateral P1, P2 and visualized P3 segments of the posterior cerebral arteries. There is no demonstrated aneurysm of the [place] of [place]. There is no demonstrated abnormality of the visualized brain. AORTIC ARCH: Normal visualized aortic arch. Normal origins of the brachiocephalic, left common carotid, and left subclavian arteries. RIGHT CAROTID ARTERIES: Normal right common carotid artery (CCA). Normal right common carotid bulb. Normal origin of the right internal carotid (ICA) artery without a hemodynamically significant stenosis. Normal visualized cervical portion of the right internal carotid artery. Normal origin of the right external carotid artery (ECA). LEFT CAROTID ARTERIES: Normal left common carotid artery (CCA). Normal left common carotid bulb. Normal origin of the left internal carotid (ICA) artery without a hemodynamically significant stenosis. Normal visualized cervical portion of the left internal carotid artery. Normal origin of the left external carotid artery (ECA). VERTEBRAL ARTERIES: Normal bilateral vertebral arteries. CT/STROKE CTA Head AND Neck W/Con IMPRESSION: Normal CTA Head and neck with contrast. Electronically Signed: Hernan Jackson MD at 7:48 EST Tel , Service support ,
[2021-11-09] MEDS: Clopidogrel Bisulfate 300 MG Tablet PO (07:10)
--- NOTE | 2021-11-09 07:52 | NURSING ---
DR RAFAT DINH
[2021-11-09 08:12] LABS: International Normalized Ratio 1.2; Prothrombin Time (Protime)PT. 14.1 SECONDS (11.7-14.9)
[2021-11-09 08:13] LABS: Partial Thromboplast Time 26.8 Seconds (24.1-36.2)
[2021-11-09 08:17] VITALS: BP 130/89; PULSE 76; RESP 17; O2SAT 97
== END 2021-11-09 08:18 | disposition left against medical advice (07) ==
PROVIDERS: Emergency Provider Emergency Medicine; PCP Internal Medicine
DX: R53.1 Weakness (principal); E66.9 Obesity, unspecified; Z68.36 Body mass index [BMI] 36.0-36.9, adult; I49.3 Ventricular premature depolarization; I49.1 Atrial premature depolarization; N28.9 Disorder of kidney and ureter, unspecified; D64.9 Anemia, unspecified; Z53.21 Procedure and treatment not carried out due to patient leaving prior to being seen by health care provider; I42.8 Other cardiomyopathies; E78.5 Hyperlipidemia, unspecified; I11.0 Hypertensive heart disease with heart failure; I50.9 Heart failure, unspecified; I42.0 Dilated cardiomyopathy; I34.0 Nonrheumatic mitral (valve) insufficiency; I27.21 Secondary pulmonary arterial hypertension; M51.16 Intervertebral disc disorders with radiculopathy, lumbar region; M19.90 Unspecified osteoarthritis, unspecified site; Z85.3 Personal history of malignant neoplasm of breast; Z95.810 Presence of automatic (implantable) cardiac defibrillator; Z79.82 Long term (current) use of aspirin; Z79.899 Other long term (current) drug therapy
CPT/HCPCS: 70450; 70496; 70498; 71045; 80048; 82962; 84484; 85025; 85610; 85730; 93005; 99285; Q9967; A4216

== ENCOUNTER 2021-11-22 13:37 | Outpatient (CLI) | payer MEDICARE, SELFPAY ==
--- NOTE | 2021-11-22 13:41 | RAD_ITS ---
STUDY: X-RAY - LUMBAR SPINE REASON FOR EXAM: Female, 81 years old. Pain. Degenerative disc disease. TECHNIQUE: 2 view(s) of the lumbar spine were obtained. COMPARISON: CT of the lumbar spine dated 03/03/2021. FINDINGS: Osteopenia. Normal lumbar lordosis. Mild lumbosacral scoliosis. There is a normal alignment of the vertebrae. Diffuse facet sclerosis. Diffuse intervertebral disc space narrowing with osteophyte formation and vacuum phenomenon at L5-S1. Cholecystectomy clips. Clips projected over the left pubic ramus. Osteoarthritic changes of the sacroiliac joints and symphysis pubis. RAD/Lumbar Spine 2 or 3 Views IMPRESSION: Osteopenia with diffuse moderate lumbosacral spondylosis as described. No acute finding or evidence of erosive changes or fusion. Electronically Signed: Nuno Dill MD at 9:11 EST , Service support ,
== END 2021-11-22 23:59 | disposition short-term general hospital (02) ==
LOC: RAD 13:40
PROVIDERS: PCP Internal Medicine; Referring Provider Anesthesiology Pain Medicine; Visit Provider Anesthesiology Pain Medicine
DX: M51.37 Other intervertebral disc degeneration, lumbosacral region (principal)
CPT/HCPCS: 72100

== ENCOUNTER 2021-12-22 13:41 | Outpatient (CLI) | payer MEDICARE, SELFPAY ==
[2021-12-22 15:47] LABS: Anion Gap 9 (5-15); BUN 35 mg/dL (7-18); BUN/Creat Ratio 26.9 RATIO (10-20); Calcium,Total 8.9 mg/dL (8.5-10.1); Chloride 90 mmol/L (98-107); EST Glomerular Filtration Rate 42 mL/min (>60); Est Glom Filt Rate - Afr Amer 51 mL/min (>60); Glucose 120 mg/dL (74-106); Potassium 3.2 mmol/L (3.5-5.1); Sodium Level 130 mmol/L (136-145)
== END 2021-12-22 23:59 | disposition short-term general hospital (02) ==
LOC: MTLAB 13:43
PROVIDERS: PCP Internal Medicine; Referring Provider Nurse Practitioner Family; Visit Provider Nurse Practitioner Family
DX: I42.8 Other cardiomyopathies (principal); I50.42 Chronic combined systolic (congestive) and diastolic (congestive) heart failure; I11.0 Hypertensive heart disease with heart failure; E78.5 Hyperlipidemia, unspecified; Z95.810 Presence of automatic (implantable) cardiac defibrillator
CPT/HCPCS: 36415; 80048

== ENCOUNTER 2021-12-31 15:23 | Inpatient (IN) | payer MEDICARE, SELFPAY ==
[2021-12-31] VITALS (9 sets, daily range): BP systolic 99–108; BP diastolic 58–86; PULSE 76–86; RESP 16–97; TEMP 36.2–37.1; O2SAT 24–99; BMI 33.6; BMI 35.4
--- NOTE | 2021-12-31 16:41 | EDS_ITS ---
HPI History of Present Illness Chief Complaint: Shortness of Breath Informant: patient Onset/Context/Timing Onset: Weeks (1) Context: gradual Timing: Continuous Quality: Positive for Dyspnea on exertion Worsened by: Exertion Relieved by: Nothing Associated Symptoms cough; Negative for rhinorrhea, ear pain, fever, sore throat, chills, clear sputum, white sputum, yellow sputum or green sputum Narrative Narrative: Patient presents with shortness of breath that has been getting worse over the past week. Patient states it is worse with exertion. Patient admits to some increased swelling in her legs. Patient states nothing seems to help with her breathing. Patient denies any fevers or chills. Patient admits to a slight cough but denies any sputum production. Patient admits to occasional intermittent chest pain. Patient describes as a twinge in her chest. PE Risk Factors: Positive for Cancer; Negative for OCP + Smoking + > 35, Prior DVT or PE, Recent immobilization, Recent surgery and Recent travel [facility] Medical History (Updated 01/01/22 @ 00:12 by Magi Gaspar) Anemia Anxiety Arthritis Atrial enlargement, bilateral Chest pain Chronic combined systolic and diastolic CHF (congestive heart failure) Chronic pain Congestive heart failure COPD (chronic obstructive pulmonary disease) Degenerative disc disease, lumbar Depression Dilated cardiomyopathy Essential (primary) hypertension Failure of outpatient treatment GERD (gastroesophageal reflux disease) Greater trochanteric bursitis of right hip HLD (hyperlipidemia) Hyponatremia Hypotension Hypothyroidism Hypothyroidism, iatrogenic ICD (implantable cardioverter-defibrillator) in place Irregular heart beat IT band syndrome Kidney disease Lightheadedness Low back pain Mitral valve disorder Mouth ulcers Non-ischemic cardiomyopathy Nonrheumatic mitral (valve) insufficiency Obesity On potassium wasting diuretic therapy Pacemaker Palpitations Paroxysmal supraventricular tachycardia Primary osteoarthritis of right knee Recurrent cancer of left breast Right knee pain Right lumbar radiculitis Secondary pulmonary arterial hypertension Shortness of breath Trigger finger, right middle finger Home Medications calcium carbonate-vitamin D3 1 each PO DAILY 08/08/14 [History Last Taken 10/17/21] aspirin 81 mg PO DAILY 05/24/16 [History Last Taken 10/16/21] allopurinol 300 mg PO DAILY 09/09/17 [History Last Taken 10/17/21] cholecalciferol (vitamin D3) 25 mcg (1,000 unit) capsule 25 mcg PO DAILY 07/21/20 [History Last Taken 10/17/21] multivitamin 1 tablet PO DAILY 01/19/21 [History Last Taken 10/17/21] meloxicam 7.5 mg tablet 7.5 mg PO DAILY PRN tab 09/27/21 [History Last Taken Unknown] carvedilol [Coreg] 12.5 mg PO BID 10/17/21 [History Last Taken 10/17/21] levothyroxine 100 mcg PO DAILY 10/17/21 [History Last Taken 10/17/21] simvastatin 40 mg PO QPM 10/17/21 [History Last Taken 10/16/21] omeprazole 40 mg capsule,delayed release 40 mg PO DAILY #90 cap 11/26/21 [Rx Last Taken Unknown] dapagliflozin 5 mg tablet 5 mg PO DAILY #90 tab 12/01/21 [Rx Last Taken Unknown] trazodone 50 mg tablet 50 mg PO QHS PRN #10 tab 12/06/21 [Rx Last Taken Unknown] furosemide 40 mg tablet 40 mg PO BID tab 12/10/21 [History Last Taken Unknown] metolazone 2.5 mg tablet 2.5 mg PO .PRN PRN tab 12/24/21 [History Last Taken Unknown] sacubitril 24 mg-valsartan 26 mg tablet 1 tab PO BID #180 tab 12/30/21 [Rx Last Taken Unknown] colestipol [Colestid] 1 g PO DAILY PRN 12/31/21 [History Last Taken Unknown] Allergy/AdvReac Type Severity Reaction Status Date / Time cephalexin Allergy Severe Rash Verified 12/31/21 15:26 paclitaxel [From Taxol] Allergy Severe PASS OUT Verified 12/31/21 15:26 amoxicillin AdvReac Severe C-DIFF Verified 12/31/21 15:26 hydrocodone AdvReac Vomiting Verified 12/31/21 15:26 TAPE Allergy Severe RASH, ITCH Uncoded 12/31/21 15:26 Family History Mother , age 90 CHF (congestive heart failure) Cancer Breast cancer CAD (coronary artery disease) Brother , age 71 CHF (congestive heart failure) Hx of CABG Brother CAD (coronary artery disease) Daughter Asthma Surgical History H/O right and left heart catheterization History of bilateral knee replacement History of carpal tunnel release of both wrists History of hysterectomy History of implantable cardiac defibrillator (ICD) (08/22/14) History of left heart catheterization History of left knee replacement History of lumpectomy of left breast History of shoulder surgery Hx of cholecystectomy Social History household members: spouse housing: house pets and animals: No Smoking Status: Never smoker alcohol intake: never substance use type: does not use caffeine: No what type of physical activity do you participate in: bicycling and other frequency: 3-4 times per week duration: 15-30 minutes/day seatbelt use: always do you feel safe at home: Yes ROS ROS ED Constitutional Constitutional ED: Denies chills or fever(s) Eyes Eyes: Reports blurry vision; Denies diplopia ENT ENT ED: Denies rhinorrhea or sore throat Cardiovascular Cardiovascular: Reports chest pain; Denies palpitations Respiratory/Chest Respiratory/Chest: Reports cough and dyspnea Gastrointestinal Gastrointestinal: Denies nausea or vomiting Genitourinary Genitourinary ED: Denies dysuria or hematuria Musculoskeletal Musculoskeletal: Reports back pain; Denies neck pain Integumentary Denies abscess or rash Neurologic Neurologic: Denies headache(s) or weakness Allergic/Immunologic Allergic/Immunologic ED: Denies mouth swelling or urticaria EXAM Physical Exam Const Vital Signs: 12/31/21 15:24 12/31/21 17:03 12/31/21 17:24 Temperature 98.7 F Temperature Source Temporal Pulse Rate 76 80 Respiratory Rate 18 16 Respiratory Effort Short of Breath Respiratory Depth Normal Blood Pressure 99/58 L Blood Pressure Mean 71 Pulse Ox 99 Oxygen Delivery Method Room Air Room Air Oxygen Flow Rate (L/min) 12/31/21 18:24 12/31/21 19:40 12/31/21 20:17 Temperature 97.1 F L 98.4 F Temperature Source Oral Temporal Pulse Rate 86 82 Respiratory Rate 25 H 97 H Respiratory Effort Respiratory Depth Blood Pressure 108/76 108/86 H Blood Pressure Mean 86 93 Pulse Ox 96 98 24 Oxygen Delivery Method Nasal Cannula Room Air Room Air Oxygen Flow Rate (L/min) 2 12/31/21 22:06 12/31/21 22:15 Temperature 98.4 F Temperature Source Temporal Pulse Rate 86 Respiratory Rate 19 H 23 H Respiratory Effort Respiratory Depth Blood Pressure 108/78 Blood Pressure Mean 88 Pulse Ox 98 Oxygen Delivery Method Room Air Oxygen Flow Rate (L/min) Positive well nourished, well developed and obese General Appearance ED: well developed Nutritional Appearance: obese HEENT Reports moist mucous membranes Neck supple and no JVD Resp normal respiratory effort Auscultation: diminished lung sounds diffuse Cardio regular rate, regular rhythm and no murmurs GI normal to inspection, nondistended, normoactive bowel sounds and non-tender Palpation: soft Extremity normal to inspection General Extremety ED: Negative for edema or tenderness General Extremity: Negative for edema Neuro oriented x3, CN's II-XII intact bilaterally and no sensory deficits noted Sensorium / Orientation: alert Motor Exam: strength 5/5 throughout Psych mental status grossly normal Skin no rashes or lesions noted MDM MDM MDM Narrative Medical decision making narrative: Patient was given a DuoNeb aerosol here. EKG was obtained. On my interpretation, it showed a normal sinus rhythm with a rate of 80. There were occasional PVCs noted. HI interval and QRS interval were normal. QTC was 514 ms. [place] was normal. There are nonspecific ST-T changes. Portable 1 view chest x-ray was obtained. On my interpretation, lung reddy are clear. There is normal cardiac silhouette. Bony thorax is normal. There is no acute process noted. Radiologist also interpreted the x-ray and agrees. CBC was within normal limits. Comprehensive metabolic profile showed a mild hyponatremia of 127 and chloride of 92. BUN was 50 and creatinine was 1.58. D- dimer was obtained and was elevated at 1.92. Because of this a CTA was ordered. Because of the elevation of the BUN and creatinine, the patient was given a 500 cc bolus of saline. CTA does not show any evidence of pulmonary embolism. There is cardiomegaly and increased right heart pressures and probable pulmonary edema. This was interpreted by the radiologist and reviewed by myself. PT was INR and PTT were within normal limits. BNP was elevated at 3696.2. Patient was given a dose of Lasix here. Case was discussed with the hospitalist. She will admit the patient to her service. Patient understood and was agreeable with the plan. All questions were answered. Lab Data Attestation: I reviewed the patient's lab results. Labs: Laboratory Results - last 24 hr 12/31/21 12/31/21 12/31/21 17:25 17:25 17:25 WBC 7.4 RBC 3.73 L Hgb 12.1 Hct 35.8 L MCV 96.0 MCH 32.4 H MCHC 33.8 RDW Std Deviation 51.0 H RDW Coeff of Cookie 14.8 H Plt Count 206 MPV 10.4 Immature Gran % (Auto) 0.400 Neut % (Auto) 61.1 Lymph % (Auto) 27.5 [place] % (Auto) 9.1 Eos % (Auto) 1.5 Baso % (Auto) 0.4 Absolute Neuts (auto) 4.5 Absolute Lymphs (auto) 2.03 Nucleated RBC % 0.5 PT Cancelled INR Cancelled APTT Cancelled D-Dimer Quant (PE/DVT) Cancelled Sodium 127 L Potassium 4.3 Chloride 92 L Carbon Dioxide 26.0 Anion Gap 9 BUN 50 H Creatinine 1.58 H Estim Creat Clear Calc 23.88 Est GFR (MDRD) Af Amer 41 L Est GFR (MDRD) Non-Af 34 L BUN/Creatinine Ratio 31.6 H Glucose 107 H Calcium 9.0 Total Bilirubin 1.00 AST 36 ALT 34 Alkaline Phosphatase 130 H Troponin I High Sens 25 B-Natriuretic Peptide Total Protein 6.9 Albumin 3.4 Globulin 3.5 Albumin/Globulin Ratio 1.0 12/31/21 12/31/21 17:25 18:25 WBC RBC Hgb Hct MCV MCH MCHC RDW Std Deviation RDW Coeff of Cookie Plt Count MPV Immature Gran % (Auto) Neut % (Auto) Lymph % (Auto) [place] % (Auto) Eos % (Auto) Baso % (Auto) Absolute Neuts (auto) Absolute Lymphs (auto) Nucleated RBC % PT 14.4 INR 1.2 APTT 30.1 D-Dimer Quant (PE/DVT) 1.92 H* Sodium Potassium Chloride Carbon Dioxide Anion Gap BUN Creatinine Estim Creat Clear Calc Est GFR (MDRD) Af Amer Est GFR (MDRD) Non-Af BUN/Creatinine Ratio Glucose Calcium Total Bilirubin AST ALT Alkaline Phosphatase Troponin I High Sens B-Natriuretic Peptide 3696.2 H Total Protein Albumin Globulin Albumin/Globulin Ratio Radiography Chest X-Ray - ED: 1 View, Read by ED Physician, Read by Radiologist and No Acute Disease CTA PE Study: No Evidence of PE and No Evidence of Dissection Diagnostic Testing: Clinical Impression(s) from Imaging Studies Chest X-Ray 12/31/21 17:30 IMPRESSION: ASHD. No acute cardiopulmonary pathology Electronically Signed: Eliecer Garcia MD at 17:51 EST , Chest CTA 12/31/21 19:57 IMPRESSION: Negative CTA Chest. Cardiomegaly and increased right heart pressures with probable pulmonary edema although superimposed infection cannot be excluded. Mediastinal adenopathy. Short-term follow-up recommended. Individualized dose optimization techniques were used for this CT. at 2130 Reported and signed by: Lux Benz MD Electronically Signed: Lux Benz MD at 21:29 EST , EKG Initial EKG: Attestation: I personally reviewed and interpreted this EKG as follows: Interpretation: Sinus Rhythm (80 with occasional PVCs) and Non-Specific ST Changes Treatment and Re-Evaluation Vital Sign Attestation:: Vital signs were reviewed prior to admission. They are stable. Discharge Plan Dx/Rx/DC Orders Clinical Impression: Congestive heart failure Disposition Disposition: Acute Care Hospital [facility] Discharge Date/Time: 12/31/21 23:26
--- NOTE | 2021-12-31 16:46 | EKG12_ITS ---
Test Reason : SOB Blood Pressure : / mmHG Vent. Rate : 080 BPM Atrial Rate : 080 BPM P-R Int : 190 ms QRS Dur : 102 ms QT Int : 446 ms P-R-T Axes : 040 -05 129 degrees QTc Int : 514 ms Sinus rhythm with frequent Premature ventricular complexes Nonspecific T wave abnormality Prolonged QT Abnormal ECG Confirmed by NABEEL FLOREZ, HEMANTH ([id number]), editor managing director BENNETT WEAVER ([id number]) on 01/04/2022 9:53:07 AM Referred By: TRAE Confirmed By:HEMANTH LEES MD
[2021-12-31] MEDS: Ipratropium/Albuterol Sulfate 3 ML AMPUL.NEB INHALATION (17:02)
--- NOTE | 2021-12-31 17:30 | RAD_ITS ---
STUDY: X-RAY CHEST REASON FOR EXAM: Female, 81 years old. Dyspnea TECHNIQUE: AP portable COMPARISON: 11/09/2021 FINDINGS: The lungs are clear and expanded. There is no demonstrated pleural abnormality. Pacer noted on the left with protrusion satisfactory position. Heart is enlarged.. Normal mediastinum and kirk. Normal visualized pulmonary arteries. Mildly calcified aortic arch and descending thoracic aorta. Dorsal spine and shoulders demonstrate degenerative change. Normal visualized ribs, and clavicles. There is no demonstrated abnormality of the visualized soft tissue structures of the upper abdomen. RAD/Chest 1 View (Portable) IMPRESSION: ASHD. No acute cardiopulmonary pathology Electronically Signed: Eliecer Garcia MD at 17:51 EST ,
[2021-12-31 17:51] LABS: Absolute Lymphocyte Count 2.03 X10^3/uL (0.83-4.51); Absolute Neutrophil Count 4.5 X10^3/uL (2.0-7.7); Basophil# 0.03 X10^3/uL; Basophil% 0.4 % (0-1); Eosinophil# 0.11 X10^3/uL; Eosinophils% 1.5 % (0-5); Hematocrit 35.8 % (37-47); Hemoglobin 12.1 g/dL (12.0-15.0); Lymphocyte # 2.03 X10^3/ul (0.83-4.51); Lymphocyte % 27.5 % (19-41); Mean Corp Hgb Conc 33.8 g/dL (32-36); Mean Corpuscular Hgb 32.4 pg (27.0-32.0); Mean Platelet Vol. 10.4 fl (6.2-12.0); Monocyte# 0.67 X10^3/uL; Monocyte% 9.1 % (0-10); NRBC Flagged by Analyzer 0.5 % (0-5); Neutrophil # 4.52 X10^3/uL (2.7-7.7); Neutrophil % 61.1 % (47-70); Platelet Count 206 K/mm3 (150-450); RBC Distribution Width CV 14.8 % (11.6-14.6); Red Blood Count 3.73 M/mm3 (4.2-5.4); White Blood Count 7.4 K/mm3 (4.4-11.0)
[2021-12-31 18:00] LABS: AST(SGOT) 36 U/L (15-37); Alanine Aminotransfer ALT/SGPT 34 U/L (13-56); Albumin, Serum 3.4 g/dL (3.2-5.0); Alkaline Phosphatase 130 U/L (45-117); Anion Gap 9 (5-15); BUN 50 mg/dL (7-18); BUN/Creat Ratio 31.6 RATIO (10-20); Chloride 92 mmol/L (98-107); Creatinine, Serum 1.58 mg/dL (0.55-1.02); EST Glomerular Filtration Rate 34 mL/min (>60); Est Glom Filt Rate - Afr Amer 41 mL/min (>60); Estimated Creatinine Clearance 23.88 ml/min; Globulin 3.5 g/dL (2.2-4.2); Glucose 107 mg/dL (74-106); Potassium 4.3 mmol/L (3.5-5.1); Protein, Total 6.9 g/dL (6.4-8.2); Sodium Level 127 mmol/L (136-145); Troponin-I HS 25 pg/mL (3.0-54.0)
[2021-12-31 18:39] LABS: International Normalized Ratio 1.2; Prothrombin Time (Protime)PT. 14.4 SECONDS (11.7-14.9)
[2021-12-31 18:40] LABS: Partial Thromboplast Time 30.1 Seconds (24.1-36.2)
[2021-12-31 18:59] LABS: D-Dimer Quantitative (DVT/PE) 1.92 FEU/ug/m (0.27-0.49)
--- NOTE | 2021-12-31 19:57 | CT_ITS ---
HISTORY: Dyspnea, elevated d-dimer, history of breast cancer EXAMINATION: CTA Chest WO/W Contrast Injection TECHNIQUE: Helically acquired images were obtained of the chest following IV contrast as per pulmonary angiogram protocol with 3D reconstructions. A radiation dose optimization technique was used for this scan. IV Contrast dosage and agent: 100mL [id number] COMPARISON: 06/13/14 and fibula with the wear: 831 by at or about reason and is not wedge-shaped Area that FINDINGS: LUNGS, PLEURA AND LARGE AIRWAYS: Diffuse, bilateral groundglass opacities with peripheral septal thickening. Small bibasilar pleural effusions. No pneumothorax. THYROID: No thyroid lesions. PULMONARY ARTERIES: Normal in caliber. No pulmonary embolism. AORTA AND GREAT VESSELS: No aneurysm or dissection. HEART AND PERICARDIUM: Cardiomegaly. No pericardial effusion. MEDIASTINUM AND STEVE: Mediastinal adenopathy. Esophagus is unremarkable. No hiatal hernia. UPPER ABDOMEN: No acute pathology. Reflux of contrast into the hepatic veins. 1.9 cm very low attenuation left adrenal nodule, -1 Hounsfield units. BONES: No acute or aggressive abnormality. CT/CTA Chest W/WO Contrast IMPRESSION: Negative CTA Chest. Cardiomegaly and increased right heart pressures with probable pulmonary edema although superimposed infection cannot be excluded. Mediastinal adenopathy. Short-term follow-up recommended. Individualized dose optimization techniques were used for this CT. at 2130 Reported and signed by: Lux Benz MD Electronically Signed: Lux Benz MD at 21:29 EST ,
[2021-12-31] MEDS: Furosemide 40 MG/4 ML Vial IV (20:15)
--- NOTE | 2021-12-31 20:15 | NURSING ---
pt in imaging so will medicate w ivf and lasix when returns
--- NOTE | 2021-12-31 22:14 | HP.PCM.HOS_ITS ---
HPI - General General Date of Admission: 12/31/21 Date of Service: 12/31/21 Chief Complaint: Dyspnea HPI Narrative The patient is a 81 y/o F w/ PMHx: CKD stage III unclear subtype, Hx Recurrent Left Breast CA following w/ Dr. Mcdonough, Chronic anemia, OA, COPD, Chronic Systolic/Diastolic CHF s/p AICD placement, Pulmonary HTN, HTN, HLD, Hypot hyroidism, Obesity who presents to the [facility] ED on 12/31/21 with history of ongoing dyspnea, worse with exertion, increased BL LE edema with non-productive cough prompting eventual ED evaluation for concern for volume overload potential. She notes she is able to fall asleep but has been awakening early at 5 am with notable dyspnea. Work-up in the ED included T 98.7, heart rate 76, BP initially 99/58 with most recent 108/86, respiratory rate 18, 99% on room air, CBC with WC 7.4, hemoglobin 12.1, platelet 206 without marked shift, coags unremarkable except D-dimer 1.92, CMP with sodium 127, chloride 92, BUN/creatinine 50/1.58, glucose 107, alk phos 130, troponin 25, BNP 3696.2, chest x-ray with no acute cardiopulmonary findings, follow-up CTPA with no evidence of pulmonary emboli or dissection, cardiomegaly and increased right heart pressures with probable pulmonary edema, mediastinal adenopathy, superimposed infection cannot be excluded, EKG with SR with occasional PVC without acute evidence of ischemia, nonspecific changes in lateral leads. In the ED patient ministered DuoNeb therapy as well as Lasix 40 mg IV x1. PFSH Medical History Anemia Arthritis Atrial enlargement, bilateral Chronic combined systolic and diastolic CHF (congestive heart failure) Congestive heart failure COPD (chronic obstructive pulmonary disease) Degenerative disc disease, lumbar Dilated cardiomyopathy Essential (primary) hypertension Failure of outpatient treatment Greater trochanteric bursitis of right hip HLD (hyperlipidemia) Hyponatremia Hypotension Hypothyroidism, iatrogenic IT band syndrome Lightheadedness Low back pain Mitral valve disorder Mouth ulcers Non-ischemic cardiomyopathy Nonrheumatic mitral (valve) insufficiency Obesity On potassium wasting diuretic therapy Palpitations Paroxysmal supraventricular tachycardia Primary osteoarthritis of right knee Recurrent cancer of left breast Right knee pain Right lumbar radiculitis Secondary pulmonary arterial hypertension Shortness of breath Trigger finger, right middle finger Home Medications calcium carbonate-vitamin D3 1 each PO DAILY 08/08/14 [History Last Taken 10/17/21] aspirin 81 mg PO DAILY 05/24/16 [History Last Taken 10/16/21] allopurinol 300 mg PO DAILY 09/09/17 [History Last Taken 10/17/21] cholecalciferol (vitamin D3) 25 mcg (1,000 unit) capsule 25 mcg PO DAILY 12/09 [History Last Taken 10/17/21] multivitamin 1 tablet PO DAILY 01/19/21 [History Last Taken 10/17/21] meloxicam 7.5 mg tablet 7.5 mg PO DAILY PRN tab 09/27/21 [History Last Taken Unknown] carvedilol [Coreg] 12.5 mg PO BID 10/17/21 [History Last Taken 10/17/21] levothyroxine 100 mcg PO DAILY 10/17/21 [History Last Taken 10/17/21] simvastatin 40 mg PO QPM 10/17/21 [History Last Taken 10/16/21] omeprazole 40 mg capsule,delayed release 40 mg PO DAILY #90 cap 11/26/21 [Rx Last Taken Unknown] dapagliflozin 5 mg tablet 5 mg PO DAILY #90 tab 12/01/21 [Rx Last Taken Unknown] trazodone 50 mg tablet 50 mg PO QHS PRN #10 tab 12/06/21 [Rx Last Taken Unknown] furosemide 40 mg tablet 40 mg PO BID tab 12/10/21 [History Last Taken Unknown] metolazone 2.5 mg tablet 2.5 mg PO .PRN PRN tab 12/24/21 [History Last Taken Unknown] sacubitril 24 mg-valsartan 26 mg tablet 1 tab PO BID #180 tab 12/30/21 [Rx Last Taken Unknown] colestipol [Colestid] 1 g PO DAILY PRN 12/31/21 [History Last Taken Unknown] Allergy/AdvReac Type Severity Reaction Status Date / Time cephalexin Allergy Severe Rash Verified 12/31/21 15:26 paclitaxel [From Taxol] Allergy Severe PASS OUT Verified 12/31/21 15:26 amoxicillin AdvReac Severe C-DIFF Verified 12/31/21 15:26 hydrocodone AdvReac Vomiting Verified 12/31/21 15:26 TAPE Allergy Severe RASH, ITCH Uncoded 12/31/21 15:26 Family History (Reviewed 12/10/21 @ 11:36 by Jose Nunez CUSTOMER DEVELOPMENT REPRESENTATIVE, CUSTOMER DEVELOPMENT REPRESENTATIVE-C) Mother , age 90 CHF (congestive heart failure) Cancer Breast cancer CAD (coronary artery disease) Brother , age 71 CHF (congestive heart failure) Hx of CABG Brother CAD (coronary artery disease) Daughter Asthma Surgical History H/O right and left heart catheterization History of bilateral knee replacement History of carpal tunnel release of both wrists History of hysterectomy History of implantable cardiac defibrillator (ICD) (08/22/14) History of left heart catheterization History of left knee replacement History of lumpectomy of left breast History of shoulder surgery Hx of cholecystectomy Social History household members: spouse housing: house pets and animals: No Smoking Status: Never smoker alcohol intake: never substance use type: does not use caffeine: No what type of physical activity do you participate in: bicycling and other frequency: 3-4 times per week duration: 15-30 minutes/day seatbelt use: always do you feel safe at home: Yes ROS ROS Narrative Admission Review of Systems: CONSTITUTIONAL: No weight loss, fever, chills, + weakness or fatigue. HEENT: Eyes: No visual loss, blurred vision, double vision or yellow sclerae. Ears, Nose, Throat: No hearing loss, sneezing, congestion, runny nose or sore throat. SKIN: No rash or itching, lesions, wounds. CARDIOVASCULAR:+ Occasional CP, edema, orthopnea, exertional dyspnea. No palpitations, syncopal events. RESPIRATORY: +Shortness of breath, cough without marked sputum, No wheezing, hemoptysis. GASTROINTESTINAL: No anorexia, nausea, vomiting or diarrhea, abdominal pain, melena, BRBPR. GENITOURINARY: No dysuria, frequency, urgency or retention. NEUROLOGICAL: No headache, dizziness, syncope, paralysis, ataxia, numbness or tingling in the extremities, focal weakness, change in bowel or bladder control, seizure. MUSCULOSKELETAL: + muscle, back pain, joint pain or stiffness. HEMATOLOGIC: + anemia, bleeding or bruising. LYMPHATICS: No enlarged nodes. No history of splenectomy. PSYCHIATRIC: No history of depression or anxiety. ENDOCRINOLOGIC: No reports of sweating, cold or heat intolerance. No polyuria or polydipsia. ALLERGIES: No history of asthma, hives, eczema or rhinitis. Vital Signs Vital Signs Vital Signs: 12/31/21 15:24 12/31/21 17:03 12/31/21 17:24 Temperature 98.7 F Temperature Source Temporal Pulse Rate 76 80 Respiratory Rate 18 16 Respiratory Effort Short of Breath Respiratory Depth Normal Blood Pressure 99/58 L Blood Pressure Mean 71 Pulse Ox 99 Oxygen Delivery Method Room Air Room Air Oxygen Flow Rate (L/min) 12/31/21 18:24 12/31/21 19:40 12/31/21 20:17 Temperature 97.1 F L 98.4 F Temperature Source Oral Temporal Pulse Rate 86 82 Respiratory Rate 25 H 97 H Respiratory Effort Respiratory Depth Blood Pressure 108/76 108/86 H Blood Pressure Mean 86 93 Pulse Ox 96 98 24 Oxygen Delivery Method Nasal Cannula Room Air Room Air Oxygen Flow Rate (L/min) 2 12/31/21 22:06 Temperature Temperature Source Pulse Rate Respiratory Rate 19 H Respiratory Effort Respiratory Depth Blood Pressure Blood Pressure Mean Pulse Ox Oxygen Delivery Method Oxygen Flow Rate (L/min) Weight Weight: 190 lb Body Mass Index (BMI) 33.6 Physical Exam Narrative Physical Examination: General: Awake, alert, oriented x 3 and cooperative, seated upright in the ED bed, notes feeling improved since initial ED presentation, less dyspnea, no current chest pain. Skin: Normal color, normal turgor, no icterus, no cyanosis. HEENT: AT/NC, EOMI, PERRLA, MMM, no carotid bruits, + JVD noted. Lungs: Diminished, > bases, mild rales but distant, no respiratory distress noted, no ronchi or wheezing. Heart: Currently regular rate and rhythm; no gallop, rub audible. Abdomen: Soft, obese, NTTP, ND, distant normal BS, no HSM. Extremities: No cyanosis, no clubbing, BL LE pedal to distal leach 2+ pitting edema. Neurological: Patient awake, alert, oriented as noted, cognitive function in tact; pupils equally reactive to light and accommodation, cranial nerves II-XII grossly normal, moving all 4 extremities, no focal deficits, strength moderately to severely globally decreased secondary to acute presentation. Psychiatric: Affect appears mildly fatigued otherwise normal, no acute evidence of depressive or anxiety feelings. Results Lab / Micro Data Result Diagrams: 12/31/21 17:25 12/31/21 17:25 Labs: Laboratory Results - last 24 hr 12/31/21 17:25: WBC 7.4, RBC 3.73 L, Hgb 12.1, Hct 35.8 L, MCV 96.0, MCH 32.4 H, MCHC 33.8, RDW Std Deviation 51.0 H, RDW Coeff of Cookie 14.8 H, Plt Count 206, MPV 10.4, Immature Gran % (Auto) 0.400, Neut % (Auto) 61.1, Lymph % (Auto) 27.5, Stanley % (Auto) 9.1, Eos % (Auto) 1.5, Baso % (Auto) 0.4, Absolute Neuts (auto) 4.5, Absolute Lymphs (auto) 2.03, Nucleated RBC % 0.5 12/31/21 17:25: PT Cancelled, INR Cancelled, APTT Cancelled, D-Dimer Quant (PE/DVT) Cancelled 12/31/21 17:25: Sodium 127 L, Potassium 4.3, Chloride 92 L, Carbon Dioxide 26.0, Anion Gap 9, BUN 50 H, Creatinine 1.58 H, Estim Creat Clear Calc 23.88, Est GFR (MDRD) Af Amer 41 L, Est GFR (MDRD) Non-Af 34 L, BUN/Creatinine Ratio 31.6 H, Glucose 107 H, Calcium 9.0, Total Bilirubin 1.00, AST 36, ALT 34, Alkaline Phosphatase 130 H, Troponin I High Sens 25, Total Protein 6.9, Albumin 3.4, Globulin 3.5, Albumin/Globulin Ratio 1.0 12/31/21 17:25: B-Natriuretic Peptide 3696.2 H 12/31/21 18:25: PT 14.4, INR 1.2, APTT 30.1, D-Dimer Quant (PE/DVT) 1.92 H* Radiology Impression Chest X-Ray 12/31/21 17:30 IMPRESSION: ASHD. No acute cardiopulmonary pathology Electronically Signed: Eliecer Garcia MD at 17:51 EST Reading Location ID and State: [facility] / [place] , Service support , Chest CTA 12/31/21 19:57 IMPRESSION: Negative CTA Chest. Cardiomegaly and increased right heart pressures with probable pulmonary edema although superimposed infection cannot be excluded. Mediastinal adenopathy. Short-term follow-up recommended. Individualized dose optimization techniques were used for this CT. at 2130 Reported and signed by: Lux Benz MD Electronically Signed: Lux Benz MD at 21:29 EST , Assessment & Plan Assessment/Plan (1) CHF exacerbation: QUALIFIERS: Heart failure type: combined systolic and diastolic Qualified Code(s): I50.43 - Acute on chronic combined systolic (congestive) and diastolic (congestive) heart failure PLAN: The patient is a 81 y/o F w/ PMHx: CKD stage III unclear subtype, Hx Recurrent Left Breast CA following w/ Dr. Mcdonough, Chronic anemia, OA, COPD, Chronic Systolic/Diastolic CHF s/p AICD placement, Pulmonary HTN, HTN, HLD, Hypothyroidism, Obesity who presents to the [facility] ED on 12/31/21 with history of ongoing dyspnea, worse with exertion, increased BL LE edema with non-productive cough prompting eventual ED evaluation for concern for volume overload potential. #1. Acute Decompensated Combined Systolic/Diastolic CHF: Patient administered IV lasix in the ED, will admit to PCU, maintain on cardiac telemetry, obtain cardiac enzyme series, obtain serial EKGs, continue IV lasix diuresis as BP allows, monitor I/Os, continue medical therapy, obtain TSH and magnesium level. Most recent ECHO noted 08/31/21 no LV size, EF 35%, stage II diastolic dysfunction, mild enlarged LA and RA, moderate MVI, PASP 55 mmHg consistent with moderate pulmonary hypertension with noted worsening from prior study. Cardiology consulted, pending. PRN morphine to decrease afterload, continue oxygen supplementation, if necessary will position w/ upright position with legs off bed to decrease preload. #2. Hyponatremia, mild, likely hypervolemic secondary to acute presentation: Admission sodium 127, chloride 92, will continue treatment as noted for CHF exacerbation with IV Lasix, repeat CMP in AM. #3. History recurrent left breast cancer: Patient with history of left breast cancer stage I, infiltrating ductal type, ER/AL positive status post lumpectomy and axillary dissection initially 1994 with radiation therapy and tamoxifen for 2 to 3 years with then recurrent disease with metastases to the left axilla 09/2008 with AC x4, Taxol with reaction unfortunately switched to Abraxane with completion of therapy 04/2009 and transition to Arimidex until 01/2013 with recurrent nodule left axilla with again invasive ductal carcinoma treated with Faslodex until March/2014 as well as radiation therapy with transition eventually to letrozole 06/2015 currently continued stable. Encouraged continued follow-up with Dr. Mcdonough. #4. Chronic anemia/Normocytic: Admission hemoglobin 12.1, MCV 96, baseline appears primarily 10-11, stable, trend. #5. Chronic Kidney Disease Stage III, unclear subtype: Admission BUN/Cr 50/1.58, baseline renal function primarily 1.3-1.6, repeat BMP in AM. #6. Hypertension: Continue home regimen including metolazone, Coreg, Entresto, IV Lasix as noted above, PRN hydralazine. #7. Hyperlipidemia: Continue home statin regimen. AM FLP. #8. Hypothyroidism: Continue home synthroid regimen, TSH pending. #9. Obesity: Weight loss and lifestyle changes encouraged. #10. GERD: We will continue patient on PPI. #11. Gout: We will continue patient home allopurinol regimen. #12. DVT prophylaxis: SCDs, heparin. #13. CODE status: Patient ELVA is her and living will is currently in place. Discussed CODE status at length including difference between FULL code, DNR-CCA and DNR-CC status. Following discussions about the differences in these status, requested Full Code status. Advanced Care Planning Face to Face Time: 16 minutes. Charges/Coding Visit Charges Inpatient E&M: 33215 Init Hosp L3 Procedures Hospitalists Procedures: 52083 Advncd Care Plan 30 Min
[2022-01-01] VITALS (9 sets, daily range): BP systolic 92–119; BP diastolic 56–65; PULSE 72–88; RESP 16–17; TEMP 36.2–36.6; O2SAT 94–97
[2022-01-01] MEDS: traZODone 50 MG Tablet PO (00:37)
[2022-01-01 01:12] LABS: Troponin-I HS 29 pg/mL (3.0-54.0)
[2022-01-01] MEDS: Levothyroxine 100 MCG Tablet PO (05:36)
[2022-01-01 06:45] LABS: Absolute Lymphocyte Count 1.49 X10^3/uL (0.83-4.51); Absolute Neutrophil Count 3.9 X10^3/uL (2.0-7.7); Basophil# 0.04 X10^3/uL; Basophil% 0.7 % (0-1); Eosinophils% 1.6 % (0-5); Hematocrit 31.8 % (37-47); Hemoglobin 10.6 g/dL (12.0-15.0); Lymphocyte # 1.49 X10^3/ul (0.83-4.51); Lymphocyte % 24.2 % (19-41); Mean Corp Hgb Conc 33.3 g/dL (32-36); Mean Corpuscular Hgb 32.2 pg (27.0-32.0); Mean Corpuscular Volume 96.7 fL (81-99); Mean Platelet Vol. 9.8 fl (6.2-12.0); Monocyte# 0.61 X10^3/uL; Monocyte% 9.9 % (0-10); NRBC Flagged by Analyzer 0.3 % (0-5); Neutrophil # 3.88 X10^3/uL (2.7-7.7); Neutrophil % 63.1 % (47-70); Platelet Count 168 K/mm3 (150-450); RBC Distribution Width CV 14.6 % (11.6-14.6); RBC Distribution Width SD 51.7 fl (35.1-43.9); Red Blood Count 3.29 M/mm3 (4.2-5.4); White Blood Count 6.2 K/mm3 (4.4-11.0)
[2022-01-01] MEDS: Ipratropium/Albuterol Sulfate 3 ML AMPUL.NEB INHALATION (07:19)
[2022-01-01 07:31] LABS: AST(SGOT) 25 U/L (15-37); Alanine Aminotransfer ALT/SGPT 29 U/L (13-56); Alkaline Phosphatase 105 U/L (45-117); Anion Gap 11 (5-15); BUN 44 mg/dL (7-18); BUN/Creat Ratio 33.3 RATIO (10-20); Calcium,Total 8.7 mg/dL (8.5-10.1); Chloride 92 mmol/L (98-107); Cholesterol 73 mg/dL (200); Creatinine, Serum 1.32 mg/dL (0.55-1.02); EST Glomerular Filtration Rate 41 mL/min (>60); Est Glom Filt Rate - Afr Amer 50 mL/min (>60); Estimated Creatinine Clearance 28.59 ml/min; Glucose 80 mg/dL (74-106); High Density Lipoprotein 28 mg/dL; Potassium 3.2 mmol/L (3.5-5.1); Sodium Level 131 mmol/L (136-145); Thyroid Stim Hormone (TSH) 3.52 uIU/mL (0.358-3.74); Triglycerides 62 mg/dL; Very Low Density Lipoprotein 12 mg/dL (5-40)
[2022-01-01] MEDS: Heparin Injection (Vial) 5,000 UNIT/ML VIAL 5000 UNIT SC (09:17)
[2022-01-01] MEDS: Calcium Carb/Vitamin D 1 TABLET Tablet PO (09:17)
[2022-01-01] MEDS: Pantoprazole Sodium 40 MG Tablet PO (09:17)
[2022-01-01] MEDS: Cholecalciferol (VIT D3) 25 MCG TABLET (1,000 UNITS) PO (09:17)
[2022-01-01] MEDS: Carvedilol 12.5 MG Tablet PO (09:17)
[2022-01-01] MEDS: Empagliflozin 10 MG Tablet PO (09:17)
[2022-01-01] MEDS: SACUBITRIL/VALSARTAN 24/26 MG TABLET 1 EACH PO (09:17)
[2022-01-01] MEDS: Aspirin E.C. 81 MG Tablet PO (09:17)
[2022-01-01] MEDS: Allopurinol 300 MG Tablet PO (09:17)
--- NOTE | 2022-01-01 09:40 | CASEMGMT ---
KATE SAMSON assessment: Face to Face with patient for initial transition planning/care coordination assessment. KATE SAMSON introduced self and role at [facility], pt voices understanding and consents to assessment. Pt is sitting up in chair on room air in no distress. Pt is A/Ox4 and answers all questions appropriately. Care providers, pharmacy, and demographics verified. Presentation: Pt c/o SOB x4days, hx CHF Admitting dx: CHF exac PCP: Jose Carlos Specialists: Kota, cardio; Prah, onc Preferred Pharmacy: [facility] Insurance: [employer] Prescription Benefit: [employer] Living Will/HPOA: Pt has LW on file but is unsure whether she has HPOA. LNOK: Jose Roberto Nascimentorubenana, Living Arrangements: Pt lives with on main level of 2 story home and states no concerns at home. Pt is independent with ADL's. Transportation: Pt states drives most of time and states no transportation concerns. DME/HHC: Pt has the following DME: cane x2, walker, rollator, grab bars, and shower chair. Pt states no need for any further DME. Pt states no hx of HHC or SNF in past. Pt states no concerns with going home at time of discharge. Pt is retired. Pt states does not smoke cigarettes or drink ETOH. Pt states no further concerns/needs. CM to follow for home oxygen need and any further discharge planning/needs. Advised pt to ask for CM if any further questions/concerns/needs arise, voices understanding. Pt Goal: Home Plan: [place] KATE SAMSON
--- NOTE | 2022-01-01 10:00 | CASEMGMT ---
Addendum entered by eLslie Yoder 01/01/22 15:04: 1150 Per [place] LOVE, pt does not qualify for home oxygen at discharge. Judy LOVE CM Original Note: Pt qualifies for palliative c/s per screening tool and Dr. Mcmullen is agreeable. Order placed and referral e-mailed. Judy LOVE CM
--- NOTE | 2022-01-01 10:03 | PCM.DC ---
Discharge Instructions Diet Discharge Diet: Low fat / Low cholesterol, 8 Cup Fluid Restriction and 2000 mg Sodium Diet Activity Discharge Activity: Return to Normal Activity Dressing / Incision Call your doctor if you observe: Shortness of breath, Dizziness and Chest pain Follow Up Care Test Results: Test results from this visit will be discussed in further detail at your follow-up appointment, if applicable. Discharge Plan Admission Admit Date/Time: 12/31/21 22:27 Primary Reason for Your Visit: Heart failure Attending Provider: Alex Mcmullen Primary Care Provider: Annetta Branch Instructions Additional Instructions / Restrictions: Weigh yourself daily. If you gain more than 2 pounds in 24 hours or 5 pounds in 1 week, notify cardiology. Discharge Orders/Prescriptions Prescriptions: Continued cholecalciferol (vitamin D3) 25 mcg (1,000 unit) capsule 25 mcg PO DAILY RF: 0 multivitamin Tablet 1 tablet PO DAILY RF: 0 meloxicam 7.5 mg tablet 7.5 mg PO DAILY PRN (Reason: Pain) RF: 0 calcium carbonate-vitamin D3 1 EACH tablet 1 each PO DAILY RF: 0 aspirin 81 MG tablet,delayed release (DR/EC) 81 mg PO DAILY RF: 0 allopurinol 300 MG tablet 300 mg PO DAILY RF: 0 carvedilol [Coreg] 12.5 mg tablet 12.5 mg PO BID RF: 0 simvastatin 40 mg tablet 40 mg PO QPM RF: 0 levothyroxine 112 mcg tablet 100 mcg PO DAILY RF: 0 colestipol [Colestid] 1 gram Tablet 1 g PO DAILY PRN (Reason: Diarrhea) RF: 0 omeprazole 40 mg capsule,delayed release(DR/EC) 40 mg PO DAILY Qty: 90 RF: 3 Farxiga 5 mg tablet 5 mg PO DAILY Qty: 90 RF: 3 trazodone 50 mg tablet 50 mg PO QHS PRN (Reason: sleep) Qty: 10 RF: 1 furosemide 40 mg tablet 40 mg PO BID RF: 0 metolazone 2.5 mg tablet 2.5 mg PO .PRN PRN (Reason: Edema) RF: 0 Entresto 24-26 mg tablet 1 tab PO BID Qty: 180 RF: 4 Referrals / Follow Up: Annetta Branch MD [Primary Care Provider] - In 1 Week Jose Nunez NP, RESEARCH PROGRAM COORDINATOR-C [Nurse Practitioner] - See Referral Note (3-5 days) Disposition Disposition (needs filled in before D/C Order can be placed): Home, Self Care
--- NOTE | 2022-01-01 10:19 | PCM.DC.SUM ---
Documented by User: Candy Davis NP, INTERNAL CORROSION SPECIALIST-C 01/01/22 10:30 Providers Date of Admission: 12/31/21 Date of Discharge: 01/01/22 Primary Care Physician: Dr. Annetta Branch MD Reason For Visit: CHF EXACERBATION Diagnosis Discharge Diagnosis (1) CHF exacerbation: Status: Chronic Code(s): I50.9 - Heart failure, unspecified Qualifiers: Heart failure type: combined systolic and diastolic Qualified Code(s): I50.43 - Acute on chronic combined systolic (congestive) and diastolic (congestive) heart failure Medications at Discharge Home Medications calcium carbonate-vitamin D3 1 each PO DAILY 08/08/14 aspirin 81 mg PO DAILY 05/24/16 allopurinol 300 mg PO DAILY 09/09/17 cholecalciferol (vitamin D3) 25 mcg (1,000 unit) capsule 25 mcg PO DAILY 07/21/20 multivitamin 1 tablet PO DAILY 01/19/21 meloxicam 7.5 mg tablet 7.5 mg PO DAILY PRN tab 09/27/21 carvedilol [Coreg] 12.5 mg PO BID 10/17/21 levothyroxine 100 mcg PO DAILY 10/17/21 simvastatin 40 mg PO QPM 10/17/21 omeprazole 40 mg capsule,delayed release 40 mg PO DAILY #90 cap 11/26/21 dapagliflozin 5 mg tablet 5 mg PO DAILY #90 tab 12/01/21 trazodone 50 mg tablet 50 mg PO QHS PRN #10 tab 12/06/21 furosemide 40 mg tablet 40 mg PO BID tab 12/10/21 metolazone 2.5 mg tablet 2.5 mg PO .PRN PRN tab 12/24/21 sacubitril 24 mg-valsartan 26 mg tablet 1 tab PO BID #180 tab 12/30/21 colestipol [Colestid] 1 g PO DAILY PRN 12/31/21 Hospital Course Operations None Procedures None Summary of Care Provided Hospital Course: Patient is a 81-year-old female admitted 12/31/21 due to shortness of breath. 1. Acute on chronic heart failure with reduced ejection fraction-BNP 3696. CTA of chest with probable pulmonary edema. Echocardiogram 08/31/2021 demonstrated an EF of 35%, stage II diastolic dysfunction, moderate mitral valve insufficiency, pulmonary artery systolic pressure 55 mmHg. Patient received IV Lasix during admission. She improved quicker than anticipated and discharged home in improved condition. Shortness of breath improved, she does not require supplemental oxygen. Lower extremity swelling improved as well. Continue home Lasix regimen and as needed metolazone. Follow-up with cardiology in 3 to 5 days. Instructed patient on daily weights and reporting greater than 2 pounds in 24 hours or 5 pounds in 1 week to cardiology. 2. Hypervolemic hyponatremia-improved with diuresis. 3. Chronic kidney disease stage IIIb- at baseline. 4. History of recurrent left breast cancer- continue follow up with oncology. 5. Chronic normocytic anemia- stable. 6. Hypertension-stable, continue home regimen. 7. Hyperlipidemia-continue statin. 8. Hypothyroidism-continue Synthroid regimen. 9. GERD-continue PPI. 10. Obesity-encouraged diet and lifestyle modifications. 11. Gout-on allopurinol. Patient seen and examined prior to discharge. Physical assessment as noted below. Patient is stable for discharge with follow up recommendations as noted above. This patient was seen by ALLYSON Richard under the supervision of Dr. Mcmullen. Physical Exam Const alert, oriented x3 and no apparent distress Orientation / Consciousness: awake, oriented to person, oriented to place and oriented to time HEENT normocephalic and moist oral mucous membranes Eyes PERRL, EOMs intact bilaterally and conjunctivae normal Neck no lymphadenopathy Resp clear to auscultation bilaterally Auscultation: diminished lung sounds Cardio regular rate, regular rhythm and no murmurs Peripheral Pulses: pulses 2+ throughout GI normal to inspection, nondistended, normoactive bowel sounds, non-tender and non-distended Extremity normal to inspection General Extremity: edema bilateral lower extremity Details: trace Skin no rashes or lesions noted Lesions: no lesions Rashes: no rashes Trauma: no lacerations or abrasions Neuro CN's II-XII intact bilaterally, no focal motor deficits, no sensory deficits noted and deep tendon reflexes 2+ bilaterally Psych mental status grossly normal and affect normal Weight / BMI Weight Weight: 200 lb 6.403 oz Body Mass Index (BMI) 35.4 ABG / Lab / Microbiology Data Result Diagrams: 01/01/22 06:38 01/01/22 06:38 Laboratory: Laboratory Results - last 24 hr 12/31/21 17:25: WBC 7.4, RBC 3.73 L, Hgb 12.1, Hct 35.8 L, MCV 96.0, MCH 32.4 H, MCHC 33.8, RDW Std Deviation 51.0 H, RDW Coeff of Cookie 14.8 H, Plt Count 206, MPV 10.4, Immature Gran % (Auto) 0.400, Neut % (Auto) 61.1, Lymph % (Auto) 27.5, Barnes % (Auto) 9.1, Eos % (Auto) 1.5, Baso % (Auto) 0.4, Absolute Neuts (auto) 4.5, Absolute Lymphs (auto) 2.03, Nucleated RBC % 0.5 12/31/21 17:25: PT Cancelled, INR Cancelled, APTT Cancelled, D-Dimer Quant (PE/DVT) Cancelled 12/31/21 17:25: Sodium 127 L, Potassium 4.3, Chloride 92 L, Carbon Dioxide 26.0, Anion Gap 9, BUN 50 H, Creatinine 1.58 H, Estim Creat Clear Calc 23.88, Est GFR (MDRD) Af Amer 41 L, Est GFR (MDRD) Non-Af 34 L, BUN/Creatinine Ratio 31.6 H, Glucose 107 H, Calcium 9.0, Total Bilirubin 1.00, AST 36, ALT 34, Alkaline Phosphatase 130 H, Troponin I High Sens 25, Total Protein 6.9, Albumin 3.4, Globulin 3.5, Albumin/Globulin Ratio 1.0 12/31/21 17:25: B-Natriuretic Peptide 3696.2 H 12/31/21 18:25: PT 14.4, INR 1.2, APTT 30.1, D-Dimer Quant (PE/DVT) 1.92 H* 01/01/22 00:38: Troponin I High Sens 29 01/01/22 00:38: Magnesium Cancelled 01/01/22 00:38: Magnesium Cancelled 01/01/22 00:38: Magnesium 2.1 01/01/22 06:38: WBC 6.2, RBC 3.29 L, Hgb 10.6 L, Hct 31.8 L, MCV 96.7, MCH 32.2 H, MCHC 33.3, RDW Std Deviation 51.7 H, RDW Coeff of Cookie 14.6, Plt Count 168, MPV 9.8, Immature Gran % (Auto) 0.500, Neut % (Auto) 63.1, Lymph % (Auto) 24.2, Barnes % (Auto) 9.9, Eos % (Auto) 1.6, Baso % (Auto) 0.7, Absolute Neuts (auto) 3.9, Absolute Lymphs (auto) 1.49, Nucleated RBC % 0.3 01/01/22 06:38: Sodium 131 L, Potassium 3.2 L, Chloride 92 L, Carbon Dioxide 28.0, Anion Gap 11, BUN 44 H, Creatinine 1.32 H, Estim Creat Clear Calc 28.59, Est GFR (MDRD) Af Amer 50 L, Est GFR (MDRD) Non-Af 41 L, BUN/Creatinine Ratio 33.3 H, Glucose 80, Calcium 8.7, Total Bilirubin 1.00, AST 25, ALT 29, Alkaline Phosphatase 105, Total Protein 6.0 L, Albumin 3.0 L, Globulin 3.0, Albumin/Globulin Ratio 1.0, Triglycerides 62, Cholesterol 73, LDL Cholesterol 33, VLDL Cholesterol 12, HDL Cholesterol 28 L, TSH 3.52 Radiography Diagnostic Testing: Radiology Impression Chest X-Ray 12/31/21 17:30 IMPRESSION: ASHD. No acute cardiopulmonary pathology Electronically Signed: Eliecer Garcia MD at 17:51 EST , Chest CTA 12/31/21 19:57 IMPRESSION: Negative CTA Chest. Cardiomegaly and increased right heart pressures with probable pulmonary edema although superimposed infection cannot be excluded. Mediastinal adenopathy. Short-term follow-up recommended. Individualized dose optimization techniques were used for this CT. at 2130 Reported and signed by: Lux Benz MD Electronically Signed: Lux Benz MD at 21:29 EST , D/C Instructions Discharge Diet: Low fat / Low cholesterol, 8 Cup Fluid Restriction and 2000 mg Sodium Diet Call your doctor if you observe: Shortness of breath, Dizziness and Chest pain Meaningful Use Info Meaningful Use Diagnoses (Choose all that apply): CHF CHF ALICIA/ARB ordered at discharge?: Yes Documented LVEF (%): 35 Discharge Plan Admission Admit Date/Time: 12/31/21 22:27 Primary Reason for Your Visit: Heart failure Attending Provider: Alex Mcmullen Primary Care Provider: Annetta Branch Instructions Additional Instructions / Restrictions: Weigh yourself daily. If you gain more than 2 pounds in 24 hours or 5 pounds in 1 week, notify cardiology. Discharge Orders/Prescriptions Prescriptions: Continued cholecalciferol (vitamin D3) 25 mcg (1,000 unit) capsule 25 mcg PO DAILY RF: 0 multivitamin Tablet 1 tablet PO DAILY RF: 0 meloxicam 7.5 mg tablet 7.5 mg PO DAILY PRN (Reason: Pain) RF: 0 calcium carbonate-vitamin D3 1 EACH tablet 1 each PO DAILY RF: 0 aspirin 81 MG tablet,delayed release (DR/EC) 81 mg PO DAILY RF: 0 allopurinol 300 MG tablet 300 mg PO DAILY RF: 0 carvedilol [Coreg] 12.5 mg tablet 12.5 mg PO BID RF: 0 simvastatin 40 mg tablet 40 mg PO QPM RF: 0 levothyroxine 112 mcg tablet 100 mcg PO DAILY RF: 0 colestipol [Colestid] 1 gram Tablet 1 g PO DAILY PRN (Reason: Diarrhea) RF: 0 omeprazole 40 mg capsule,delayed release(DR/EC) 40 mg PO DAILY Qty: 90 RF: 3 Farxiga 5 mg tablet 5 mg PO DAILY Qty: 90 RF: 3 trazodone 50 mg tablet 50 mg PO QHS PRN (Reason: sleep) Qty: 10 RF: 1 furosemide 40 mg tablet 40 mg PO BID RF: 0 metolazone 2.5 mg tablet 2.5 mg PO .PRN PRN (Reason: Edema) RF: 0 Entresto 24-26 mg tablet 1 tab PO BID Qty: 180 RF: 4 Referrals / Follow Up: Annetta Branch MD [Primary Care Provider] - In 1 Week Jose Nunez NP, INTERNAL CORROSION SPECIALIST-C [Nurse Practitioner] - See Referral Note (3-5 days) Disposition Disposition (needs filled in before D/C Order can be placed): Home, Self Care Documented by User: Dr. Alex Mcmullen MD 01/01/22 11:22 Providers Date of Admission: 12/31/21 Reason For Visit: CHF EXACERBATION Medications at Discharge Home Medications calcium carbonate-vitamin D3 1 each PO DAILY 08/08/14 aspirin 81 mg PO DAILY 05/24/16 allopurinol 300 mg PO DAILY 09/09/17 cholecalciferol (vitamin D3) 25 mcg (1,000 unit) capsule 25 mcg PO DAILY 07/21/20 multivitamin 1 tablet PO DAILY 01/19/21 meloxicam 7.5 mg tablet 7.5 mg PO DAILY PRN tab 09/27/21 carvedilol [Coreg] 12.5 mg PO BID 10/17/21 levothyroxine 100 mcg PO DAILY 10/17/21 simvastatin 40 mg PO QPM 10/17/21 omeprazole 40 mg capsule,delayed release 40 mg PO DAILY #90 cap 11/26/21 dapagliflozin 5 mg tablet 5 mg PO DAILY #90 tab 12/01/21 trazodone 50 mg tablet 50 mg PO QHS PRN #10 tab 12/06/21 furosemide 40 mg tablet 40 mg PO BID tab 12/10/21 metolazone 2.5 mg tablet 2.5 mg PO .PRN PRN tab 12/24/21 sacubitril 24 mg-valsartan 26 mg tablet 1 tab PO BID #180 tab 12/30/21 colestipol [Colestid] 1 g PO DAILY PRN 12/31/21 Hospital Course Operations None Summary of Care Provided Minutes Spent on Discharge: 35 Hospital Course: This patient was seen in conjunction with ALLYSON Richard . I have independently interviewed and examined the patient and reviewed pertinent historical, laboratory, and other data. Please refer to ALLYSON Richard note for details of this patient's presentation, findings, and recommendations. I have reviewed Candy Ryan, INTERNAL CORROSION SPECIALIST-C note and concur with documented findings. In brief, patient is a 81-year-old lady who presented with progressive shortness of breath and assessment of acute on chronic congestive heart failure with reduced ejection fraction made. Admitted to monitored bed where patient was managed. Physical Examination: GENERAL: cooperative HEENT: Atraumatic; EYES; Anicteric, Normal Conjunctiva NECK; supple, normal thyroid, RESPIRATORY: Diminished to auscultation CARDIOVASCULAR: Regular S1 S2, GI: soft, normoactive bowel sounds, : No Renal angle tenderness; EXTREMITIES: No edema, no clubbing, MUSCULOSKELETAL: no muscle wasting NEURO: Awake; no lateralizing signs. SKIN: No Rash PSYCH; Flat affect Assessment: 1. Acute on chronic congestive heart failure with reduced ejection fraction ?2. Hyponatremia secondary to hypovolemic hyponatremia from CHF 3. Chronic kidney disease stage IIIb 4. Status post AICD placement 5. Secondary pulmonary artery hypertension 6. Dyslipidemia 7. Essential hypertension 8. History of recurrent left breast cancer 9. Anemia of chronic disorder 10. Hypothyroidism 11. Gout 12. Class II obesity with BMI of 35.5 13. GERD Recommendations: 1. I have discussed the results of my overview and impressions with the patient 2. Options for management were reviewed Total time spent by myself and the advanced practice practitioner evaluating patient, reviewing labs, subsequent management decisions, discussion with patient as well as other providers 35 minutes ( 20 of which was spent by myself) ABG / Lab / Microbiology Data Result Diagrams: 01/01/22 06:38 01/01/22 06:38 Discharge Plan Admission Admit Date/Time: 12/31/21 22:27 Primary Reason for Your Visit: Heart failure Attending Provider: Alex Mcmullen Primary Care Provider: Annetta Branch Instructions Additional Instructions / Restrictions: Weigh yourself daily. If you gain more than 2 pounds in 24 hours or 5 pounds in 1 week, notify cardiology. Discharge Orders/Prescriptions Prescriptions: Continued cholecalciferol (vitamin D3) 25 mcg (1,000 unit) capsule 25 mcg PO DAILY RF: 0 multivitamin Tablet 1 tablet PO DAILY RF: 0 meloxicam 7.5 mg tablet 7.5 mg PO DAILY PRN (Reason: Pain) RF: 0 calcium carbonate-vitamin D3 1 EACH tablet 1 each PO DAILY RF: 0 aspirin 81 MG tablet,delayed release (DR/EC) 81 mg PO DAILY RF: 0 allopurinol 300 MG tablet 300 mg PO DAILY RF: 0 carvedilol [Coreg] 12.5 mg tablet 12.5 mg PO BID RF: 0 simvastatin 40 mg tablet 40 mg PO QPM RF: 0 levothyroxine 112 mcg tablet 100 mcg PO DAILY RF: 0 colestipol [Colestid] 1 gram Tablet 1 g PO DAILY PRN (Reason: Diarrhea) RF: 0 omeprazole 40 mg capsule,delayed release(DR/EC) 40 mg PO DAILY Qty: 90 RF: 3 Farxiga 5 mg tablet 5 mg PO DAILY Qty: 90 RF: 3 trazodone 50 mg tablet 50 mg PO QHS PRN (Reason: sleep) Qty: 10 RF: 1 furosemide 40 mg tablet 40 mg PO BID RF: 0 metolazone 2.5 mg tablet 2.5 mg PO .PRN PRN (Reason: Edema) RF: 0 Entresto 24-26 mg tablet 1 tab PO BID Qty: 180 RF: 4 Referrals / Follow Up: Annetta Branch MD [Primary Care Provider] - In 1 Week Jose Nunez NP, INTERNAL CORROSION SPECIALIST-C [Nurse Practitioner] - See Referral Note (3-5 days) Disposition Disposition (needs filled in before D/C Order can be placed): Home, Self Care Charges/Coding Visit Charges Inpatient E&M: 33210 Disch Hosp Hospital Course Operations None
[2022-01-01] MEDS: Potassium Chloride Oral Tablet 20 MEQ 40 MEQ PO (11:20)
[2022-01-01 12:20] LABS: Magnesium 2.1 mg/dL (1.6-2.6)
== END 2022-01-01 13:24 | disposition home or self-care (01) | DRG 291 ==
LOC: ED 22:16 → PCU 22:39
PROVIDERS: Admitting Provider Family Medicine; Emergency Provider Emergency Medicine; PCP Internal Medicine; Visit Provider Internal Medicine
DX: I13.0 Hypertensive heart and chronic kidney disease with heart failure and stage 1 through stage 4 chronic kidney disease, or unspecified chronic kidney disease (principal); I50.23 Acute on chronic systolic (congestive) heart failure; E87.1 Hypo-osmolality and hyponatremia; D63.8 Anemia in other chronic diseases classified elsewhere; I27.21 Secondary pulmonary arterial hypertension; I42.0 Dilated cardiomyopathy; J44.9 Chronic obstructive pulmonary disease, unspecified; N18.32 Chronic kidney disease, stage 3b; D64.9 Anemia, unspecified; M10.9 Gout, unspecified; I34.0 Nonrheumatic mitral (valve) insufficiency; M19.90 Unspecified osteoarthritis, unspecified site; K21.9 Gastro-esophageal reflux disease without esophagitis; E78.5 Hyperlipidemia, unspecified; E03.9 Hypothyroidism, unspecified; F41.9 Anxiety disorder, unspecified; M51.36 Other intervertebral disc degeneration, lumbar region; Z68.35 Body mass index [BMI] 35.0-35.9, adult; Z66 Do not resuscitate; Z85.3 Personal history of malignant neoplasm of breast; Z92.3 Personal history of irradiation; G89.29 Other chronic pain; I49.3 Ventricular premature depolarization; E66.9 Obesity, unspecified; Z95.810 Presence of automatic (implantable) cardiac defibrillator; Z79.82 Long term (current) use of aspirin; Z79.899 Other long term (current) drug therapy; F32.A Depression, unspecified
CPT/HCPCS: 36415; 71045; 71275; 80053; 80061; 83735; 83880; 84443; 84484; 85025; 85379; 85610; 85730; 93005; 94640; 97802; 99251; 99285; J7040; Q9967; A4216; G0463; J1940

== ENCOUNTER 2022-01-14 15:15 | Outpatient (CLI) | payer MEDICARE, SELFPAY ==
[2022-01-14 15:58] LABS: Absolute Lymphocyte Count 1.37 X10^3/uL (0.83-4.51); Absolute Neutrophil Count 5.8 X10^3/uL (2.0-7.7); Basophil# 0.03 X10^3/uL; Basophil% 0.4 % (0-1); Eosinophil# 0.13 X10^3/uL; Eosinophils% 1.6 % (0-5); Hematocrit 31.9 % (37-47); Hemoglobin 10.6 g/dL (12.0-15.0); Lymphocyte # 1.37 X10^3/ul (0.83-4.51); Lymphocyte % 16.6 % (19-41); Mean Corp Hgb Conc 33.2 g/dL (32-36); Mean Corpuscular Hgb 31.7 pg (27.0-32.0); Mean Corpuscular Volume 95.5 fL (81-99); Mean Platelet Vol. 10.4 fl (6.2-12.0); Monocyte# 0.85 X10^3/uL; Monocyte% 10.3 % (0-10); NRBC Flagged by Analyzer 0.2 % (0-5); Neutrophil # 5.81 X10^3/uL (2.7-7.7); Neutrophil % 70.5 % (47-70); Platelet Count 155 K/mm3 (150-450); RBC Distribution Width CV 14.9 % (11.6-14.6); RBC Distribution Width SD 51.8 fl (35.1-43.9); Red Blood Count 3.34 M/mm3 (4.2-5.4); White Blood Count 8.2 K/mm3 (4.4-11.0)
[2022-01-14 16:24] LABS: Anion Gap 6 (5-15); BUN 36 mg/dL (7-18); BUN/Creat Ratio 27.5 RATIO (10-20); Calcium,Total 8.8 mg/dL (8.5-10.1); Chloride 101 mmol/L (98-107); Creatinine, Serum 1.31 mg/dL (0.55-1.02); EST Glomerular Filtration Rate 42 mL/min (>60); Est Glom Filt Rate - Afr Amer 50 mL/min (>60); Glucose 112 mg/dL (74-106); Potassium 3.6 mmol/L (3.5-5.1); Sodium Level 135 mmol/L (136-145)
== END 2022-01-14 23:59 | disposition home or self-care (01) ==
LOC: LAB 15:17
PROVIDERS: PCP Internal Medicine; Visit Provider Nurse Practitioner Gerontology
DX: R06.00 Dyspnea, unspecified (principal)
CPT/HCPCS: 36415; 80048; 85025

== ENCOUNTER 2022-01-18 13:38 | Outpatient (CLI) | payer MEDICARE, SELFPAY ==
[2022-01-18 13:56] VITALS: BP 102/61; PULSE 83; RESP 16; TEMP 36.1; O2SAT 99
[2022-01-18] MEDS: Furosemide 40 MG/4 ML Vial 60 MG IV (14:07)
[2022-01-18] MEDS: 0.9% NaCl Peripheral Flush Adult/Peds IV (14:10)
== END 2022-01-18 23:59 | disposition home or self-care (01) ==
LOC: MEDOUTP 13:40
PROVIDERS: PCP Internal Medicine; Referring Provider Nurse Practitioner Family; Visit Provider Nurse Practitioner Family
DX: I42.8 Other cardiomyopathies (principal); R06.00 Dyspnea, unspecified
CPT/HCPCS: 96374; A4216; J1940

== ENCOUNTER 2022-01-19 13:34 | Outpatient (CLI) | payer MEDICARE, SELFPAY ==
[2022-01-19 14:00] VITALS: BP 99/52; PULSE 82; RESP 16; O2SAT 99
[2022-01-19] MEDS: 0.9% NaCl Peripheral Flush Adult/Peds IV ×2 (14:04→14:16)
[2022-01-19] MEDS: Furosemide 40 MG/4 ML Vial 60 MG IV (14:04)
[2022-01-19 14:23] VITALS: BP 100/56; PULSE 76
== END 2022-01-19 23:59 | disposition home or self-care (01) ==
LOC: MEDOUTP 13:34
PROVIDERS: PCP Internal Medicine; Referring Provider Nurse Practitioner Family; Visit Provider Nurse Practitioner Family
DX: I42.8 Other cardiomyopathies (principal); R06.00 Dyspnea, unspecified
CPT/HCPCS: 96374; A4216; J1940

== ENCOUNTER 2022-01-20 13:53 | Outpatient (CLI) | payer MEDICARE, SELFPAY ==
[2022-01-20 14:09] VITALS: BP 101/47; PULSE 79; RESP 16; TEMP 35.8; O2SAT 97; BMI 34.5
[2022-01-20] MEDS: 0.9% NaCl Peripheral Flush Adult/Peds IV (14:12)
[2022-01-20] MEDS: Furosemide 40 MG/4 ML Vial 60 MG IV (14:13)
[2022-01-20 15:05] LABS: Anion Gap 6 (5-15); BUN 37 mg/dL (7-18); BUN/Creat Ratio 28.9 RATIO (10-20); Calcium,Total 8.7 mg/dL (8.5-10.1); Chloride 98 mmol/L (98-107); Creatinine, Serum 1.28 mg/dL (0.55-1.02); EST Glomerular Filtration Rate 43 mL/min (>60); Est Glom Filt Rate - Afr Amer 52 mL/min (>60); Estimated Creatinine Clearance 29.48 ml/min; Glucose 159 mg/dL (74-106); Potassium 3.8 mmol/L (3.5-5.1); Sodium Level 135 mmol/L (136-145)
== END 2022-01-20 23:59 | disposition home or self-care (01) ==
PROVIDERS: PCP Internal Medicine; Referring Provider Nurse Practitioner Family; Visit Provider Nurse Practitioner Family
DX: I42.8 Other cardiomyopathies (principal); R06.00 Dyspnea, unspecified
CPT/HCPCS: 96374; 36415; 80048; A4216; J1940

== ENCOUNTER 2022-01-27 13:08 | Outpatient (CLI) | payer MEDICARE, SELFPAY ==
[2022-01-27 13:29] VITALS: BP 100/60; PULSE 73; RESP 16; TEMP 36.1; O2SAT 100; BMI 35.6
[2022-01-27] MEDS: Furosemide 40 MG/4 ML Vial 60 MG IV (13:51)
[2022-01-27 14:04] VITALS: BP 98/64; PULSE 65
== END 2022-01-27 23:59 | disposition home or self-care (01) ==
LOC: MEDOUTP 13:10
PROVIDERS: PCP Internal Medicine; Referring Provider Nurse Practitioner Family; Visit Provider Nurse Practitioner Family
DX: I50.42 Chronic combined systolic (congestive) and diastolic (congestive) heart failure (principal); R63.5 Abnormal weight gain; R60.9 Edema, unspecified; R06.00 Dyspnea, unspecified
CPT/HCPCS: 96374; A4216; J1940

== ENCOUNTER 2022-01-28 13:20 | Outpatient (CLI) | payer MEDICARE, SELFPAY ==
[2022-01-28 13:30] VITALS: BP 99/52; PULSE 74; RESP 18
[2022-01-28] MEDS: 0.9% NaCl Peripheral Flush Adult/Peds IV (13:35)
[2022-01-28] MEDS: Furosemide 40 MG/4 ML Vial 60 MG IV (13:38)
== END 2022-01-28 23:59 | disposition home or self-care (01) ==
LOC: MEDOUTP 13:20
PROVIDERS: PCP Internal Medicine; Referring Provider Nurse Practitioner Family; Visit Provider Nurse Practitioner Family
DX: I50.42 Chronic combined systolic (congestive) and diastolic (congestive) heart failure (principal); R06.00 Dyspnea, unspecified; R63.5 Abnormal weight gain; R60.9 Edema, unspecified
CPT/HCPCS: 96374; A4216; J1940

== ENCOUNTER 2022-01-31 13:27 | Outpatient (CLI) | payer MEDICARE, SELFPAY ==
[2022-01-31 14:13] VITALS: BP 110/59; PULSE 66; RESP 18; TEMP 35.9; O2SAT 98; BMI 35.6
[2022-01-31] MEDS: Furosemide 40 MG/4 ML Vial 60 MG IV (14:18)
[2022-01-31 14:28] LABS: Anion Gap 6 (5-15); BUN 70 mg/dL (7-18); BUN/Creat Ratio 48.3 RATIO (10-20); Calcium,Total 8.3 mg/dL (8.5-10.1); Chloride 99 mmol/L (98-107); Creatinine, Serum 1.45 mg/dL (0.55-1.02); EST Glomerular Filtration Rate 37 mL/min (>60); Est Glom Filt Rate - Afr Amer 45 mL/min (>60); Estimated Creatinine Clearance 26.02 ml/min; Glucose 214 mg/dL (74-106); Potassium 4.5 mmol/L (3.5-5.1); Sodium Level 130 mmol/L (136-145)
== END 2022-01-31 23:59 | disposition home or self-care (01) ==
LOC: MEDOUTP 13:28
PROVIDERS: PCP Internal Medicine; Referring Provider Nurse Practitioner Family; Visit Provider Nurse Practitioner Family
DX: I50.42 Chronic combined systolic (congestive) and diastolic (congestive) heart failure (principal); R06.00 Dyspnea, unspecified; R63.5 Abnormal weight gain; R60.9 Edema, unspecified
CPT/HCPCS: 96374; 36415; 80048; A4216; J1940

== ENCOUNTER 2022-02-14 13:30 | Outpatient (RCR) | payer MEDICARE, SELFPAY ==
--- NOTE | 2022-02-07 12:11 | HP.PTEVAL_ITS ---
Patient's Visit Information DESIRAE BRYANT is a 81 year old F referred to Physical Therapy by Dr. Annetta Branch MD with a diagnosis of DORALGIA, CHRONIC PAIN. Date of Evaluation: 02/07/22 Physical Therapist: Ruiz Roque PT, Cert MDT, OCS - Visit Plan Frequency: 2x /Week Duration: 4 Weeks Plan: PRECAUTIONS: CARDIAC ,PACEMEAKER. PT INTERVETIONS DLS ,LE STRENGTHENING ,FUNCTIONAL STRENGTHENING AND POSTURAL EX'S - Subjective This 81 y/o female presents to physical therapy with back pain and weakness in legs. Patient has multiple comorbities to influence patient condition CHF, decrease heart function at 35% , right TKR ,left TKR ~ 9 years ,RTC repair and tore again and left RTC tear ,increase SOB with activity, PACEMACKER/DIFIBULATOR, , BREAST CA left , neuropathy ,depression . Patient major complaints weakness in legs when walking , SOB and increase back pain. Patient uses FWW but today used cane Patient back pain increases walking ,standing, < mins, bending and lifting unable . Alleviating factors sitting ,rest. Denies paresthesia except neuropathy in feet /ties. Patient has difficulty with stairs Pain lumbar left > right side no leg symptoms .Coughing/sneezing -.Bowel/bladder.- Patient sleeping okay at night. Patient has had x-rays DDD . Patient has seen pain management in January 2022 for epidural injection didn't help MEDS tramadol. Patient pain affects QOL and function /ADLS and walking. SOCAIL: . VOCATION: retired - Pain Left Pain Intensity (Out of 10): 7 Pain Intensity Range: 10 - Objective POSTURE: mild forward posture. GAIT: unsteady gait with QC LOB x2 unsteady SOB mild forward posture 2 point gait( advised patient use FWW). BALANCE: fair with QC. EDEMA: 1+ BILATERAL LEGS L> R. MMT (peak force): quads 28 .2,hamstrings 28 ,hip flexors 16.8,ankle 22.9. LUMBAR ROM : mod loss flexion ,extension severe ,side glides mod. FLEXABLITY: hams mild tight - Special Tests L/S Slump test left side: Negative L/S Slump test right side: Negative L/S Left Straight Leg Raise: Negative L/S Right Straight Leg Raise: Negative - Balance/Special Test Scores CATSIB Score (Max score 120 seconds): 45 Oswestry Low Back Score: 31 - Goals Goal 1:: Patient to be I with HEP for back and strengthening Goal Time Frame: 4-6 Weeks Goal 2:: Patient to improve quality of gait community distance with appropriate device with decrease pain by 50% Goal Time Frame: 4-6 Weeks Goal 3:: Patient to demonstrate 50% improvement with function and and decrease back pain Goal Time Frame: 4-6 Weeks Goal 4:: Patient to improve MMT peak force by 5 to improve gait and sit-stand from chair Goal Time Frame: 4-6 Weeks Goal 5:: Patient to improvement with back oswestry by 5 points to improve QOL a nd function Goal Time Frame: 4-6 Weeks - Rehabilitation Potential Physical Therapy Diagnosis: This patient has LBP worse with walking and standing ,weakness in legs impairs gait needing QC/FWW due to weakness legs, SOB along with comorbties influences patient condition thus will benefit from skilled PT Rehabilitation Potential: Good - Anticipated Interventions Patient/Client Instruction: Educate patient on: Condition, Plan of Care For the Purpose of:: To decrease pain, To increase ROM, To improve muscle performance and motor function, To improve ability to perform ADL's, To increase tolerance to activity/condition/position, To improve ability of physical actions for home/community/work/leisure, To improve gait and locomotor functions, To increase flexibility/ROM, To improve endurance, To improve balance, To assume or resume ADL's, To improve ability to perform tasks related to life management Therapeutic Exercise to Include: Strength training, Endurance training, Body mechanics, Postural training, Flexibilty training, Dynamic Lumbar Stabilization For the Purpose of:: To decrease pain, To increase ROM, To improve muscle performance and motor function, To improve ability to perform ADL's, To increase tolerance to activity/condition/position, To improve performance and independence with ADL's, To improve ability of physical actions for home/community/work/leisure, To improve health of tissue, To increase flexibility/ROM, To prevent re-injury Thank you for the opportunity to evaluate your patient. For Medicare and Medicare HMO plans, please review the plan of care and approve it. It will need to be FAXED BACK to us at [phone] for Medicare purposes. For Medicare only, by signing this I certify the plan of care. Please let me know if there are questions or concerns regarding this plan of care. Physician Signature: Date:
--- NOTE | 2022-07-27 13:30 | HP.PT.NRP ---
DESIRAE BRAYNT was seen in my office for initial evaluation on 02/07/22. The following Plan of Care was established for this patient: Initial Frequency: 2x /Week Initial Duration: 4 Weeks Patient/Client Instruction: Educate patient on: Condition, Plan of Care For the Purpose of:: To decrease pain, To increase ROM, To improve muscle performance and motor function, To improve ability to perform ADL's, To increase tolerance to activity/condition/position, To improve ability of physical actions for home/community/work/leisure, To improve gait and locomotor functions, To increase flexibility/ROM, To improve endurance, To improve balance, To assume or resume ADL's, To improve ability to perform tasks related to life management Therapeutic Exercise to Include: Strength training, Endurance training, Body mechanics, Postural training, Flexibilty training, Dynamic Lumbar Stabilization For the Purpose of:: To decrease pain, To increase ROM, To improve muscle performance and motor function, To improve ability to perform ADL's, To increase tolerance to activity/condition/position, To improve performance and independence with ADL's, To improve ability of physical actions for home/community/work/leisure, To improve health of tissue, To increase flexibility/ROM, To prevent re-injury This patient was last seen in our office . Pertinent comments regarding their Physical therapy will appear below: Patient seen for PT for dorasalgia for HEP for posture and strengthening thus is d/c. At this point I will be discontinuing this patient from physical therapy. I would be happy to see this patient again in the future if found appropriate by the physician. Thank you! Ruiz Roque, PT, Cert MDT, OCS Balance/Gait/Functional tests - Balance/Special Test Scores CATSIB Score (Max score 120 seconds): 45 Oswestry Low Back Score: 3
== END 2022-02-14 19:00 | disposition home or self-care (01) ==
LOC: PT 13:30
PROVIDERS: PCP Internal Medicine; Referring Provider Internal Medicine; Visit Provider Internal Medicine
DX: M54.9 Dorsalgia, unspecified (principal); G89.29 Other chronic pain
CPT/HCPCS: 97110; 97162

== ENCOUNTER 2022-02-15 17:17 | Inpatient (IN) | payer MEDICARE, SELFPAY ==
[2022-02-15 17:17] VITALS: BP 123/73; PULSE 76; RESP 16; TEMP 36.2; O2SAT 99; BMI 36.6
[2022-02-15 19:40] VITALS: BP 114/74; PULSE 74; RESP 16; O2SAT 97
--- NOTE | 2022-02-15 20:10 | EDS_ITS ---
HPI History of Present Illness Chief Complaint: Weakness Informant: patient Onset/Context/Timing Onset: Weeks (1) Context: Gradual Onset Timing: Continuous Quality: Weakness Location: Lower extremity Worsened by: Nothing Relieved by: Nothing Narrative Narrative: Patient presents with lower extremity weakness and edema that has been getting worse over the past week. Patient states her legs feel weak like they want to give out on her. Patient states she has fallen a few times over the last week. Patient states nothing makes her symptoms better nothing makes them worse. Patient does admit to some shortness of breath and a mild cough. Patient denies any sputum production. Patient denies any fevers or chills. Patient denies any chest pain or palpitations. [facility] Medical History Anemia Anxiety Arthritis Atrial enlargement, bilateral Cancer Carpal tunnel syndrome on both sides Chest pain Chronic combined systolic and diastolic CHF (congestive heart failure) Chronic pain Congestive heart failure Congestive heart failure COPD (chronic obstructive pulmonary disease) Degenerative disc disease, lumbar Depression Dilated cardiomyopathy DVT (deep venous thrombosis) Essential (primary) hypertension Failure of outpatient treatment GERD (gastroesophageal reflux disease) Greater trochanteric bursitis of right hip HLD (hyperlipidemia) Hypertension Hyponatremia Hypotension Hypothyroidism Hypothyroidism, iatrogenic ICD (implantable cardioverter-defibrillator) in place Irregular heart beat IT band syndrome Kidney disease Lightheadedness Low back pain Mitral valve disorder Mouth ulcers Non-ischemic cardiomyopathy Nonrheumatic mitral (valve) insufficiency Obesity On potassium wasting diuretic therapy Osteoporosis Pacemaker Palpitations Paroxysmal supraventricular tachycardia Primary osteoarthritis of right knee Recurrent cancer of left breast Right knee pain Right lumbar radiculitis Secondary pulmonary arterial hypertension Shortness of breath Trigger finger, right middle finger Home Medications calcium carbonate-vitamin D3 1 each PO DAILY 08/08/14 [History Last Taken 10/17/21] aspirin 81 mg PO DAILY 05/24/16 [History Last Taken 10/16/21] multivitamin 1 tablet PO DAILY 01/19/21 [History Last Taken 10/17/21] carvedilol [Coreg] 12.5 mg PO BID 10/17/21 [History Last Taken 10/17/21] omeprazole 40 mg capsule,delayed release 40 mg PO DAILY #90 cap 11/26/21 [Rx Last Taken Unknown] metolazone 2.5 mg tablet 2.5 mg PO .PRN PRN tab 12/24/21 [History Last Taken Unknown] allopurinol 300 mg tablet 300 mg PO DAILY #90 tab 01/06/22 [Rx Last Taken Unknown] simvastatin 40 mg tablet 40 mg PO QPM #90 tab 01/12/22 [Rx Last Taken Unknown] levothyroxine 112 mcg tablet 112 mcg PO DAILY tab 01/14/22 [History Last Taken Unknown] furosemide 40 mg tablet 40 mg PO BID #180 tab 02/01/22 [Rx Last Taken Unknown] sacubitril 24 mg-valsartan 26 mg tablet 1 tab PO BID #180 tab 02/01/22 [Rx Last Taken Unknown] cholecalciferol (vitamin D3) [Vitamin D3] 125 mcg PO DAILY 02/15/22 [History Last Taken Unknown] dapagliflozin [Farxiga] 5 mg PO DAILY PRN 02/15/22 [History Last Taken Unknown] sacubitril-valsartan [Entresto] 1 tab PO BID 02/15/22 [History Last Taken Unknown] Allergy/AdvReac Type Severity Reaction Status Date / Time cephalexin Allergy Severe Rash Verified 02/15/22 17:20 paclitaxel [From Taxol] Allergy Severe PASS OUT Verified 02/15/22 17:20 amoxicillin AdvReac Severe C-DIFF Verified 02/15/22 17:20 spironolactone AdvReac Intermediate Mouth Verified 02/15/22 17:20 sores and vaginal yeast infections hydrocodone AdvReac Vomiting Verified 02/15/22 17:20 TAPE Allergy Severe RASH, ITCH Uncoded 02/15/22 17:20 Family History Mother , age 90 CHF (congestive heart failure) Cancer Breast cancer CAD (coronary artery disease) Brother , age 71 CHF (congestive heart failure) Hx of CABG Brother CAD (coronary artery disease) Daughter Asthma Surgical History H/O right and left heart catheterization History of appendectomy History of bilateral knee replacement History of carpal tunnel release of both wrists History of hysterectomy History of implantable cardiac defibrillator (ICD) (08/22/14) History of left heart catheterization History of left knee replacement History of lumpectomy of left breast History of shoulder surgery History of total bilateral knee replacement Hx of cholecystectomy Social History household members: spouse housing: house pets and animals: No Smoking Status: Never smoker alcohol intake: never substance use type: does not use caffeine: No what type of physical activity do you participate in: bicycling and other frequency: 3-4 times per week duration: 15-30 minutes/day seatbelt use: always do you feel safe at home: Yes ROS ROS ED Constitutional Constitutional ED: Denies chills or fever(s) Eyes Eyes: Denies blurry vision or change in vision ENT ENT ED: Denies rhinorrhea or sore throat Cardiovascular Cardiovascular: Denies chest pain or palpitations Respiratory/Chest Respiratory/Chest: Reports cough and dyspnea Gastrointestinal Gastrointestinal: Denies nausea or vomiting Genitourinary Genitourinary ED: Denies dysuria or hematuria Musculoskeletal Musculoskeletal: Reports back pain; Denies neck pain Integumentary Denies abscess or rash Neurologic Neurologic: Reports weakness; Denies headache(s) Allergic/Immunologic Allergic/Immunologic ED: Denies mouth swelling or urticaria EXAM Physical Exam Const Vital Signs: 02/15/22 17:17 02/15/22 19:40 02/15/22 21:00 Temperature 97.2 F L Temperature Source Temporal Pulse Rate 76 74 74 Respiratory Rate 16 16 19 H Blood Pressure 123/73 H 114/74 110/69 Blood Pressure Mean 89 87 82 Pulse Ox 99 97 98 Oxygen Delivery Method Room Air Room Air Room Air 02/15/22 22:28 Temperature Temperature Source Pulse Rate 78 Respiratory Rate 16 Blood Pressure 158/77 H Blood Pressure Mean 104 Pulse Ox 98 Oxygen Delivery Method Room Air Positive well nourished and well developed General Appearance ED: well developed HEENT Reports moist mucous membranes Neck supple and no JVD Resp normal respiratory effort Auscultation: diminished lung sounds bilateral lower Cardio regular rate, regular rhythm and no murmurs GI normal to inspection, nondistended, normoactive bowel sounds and non-tender Palpation: soft Extremity Extremity Narrative: There is 2+ pitting edema of the lower extremities bilaterally. There is some tenderness palpation over the anterior lower legs bilaterally. General Extremety ED: Yes edema and tenderness General Extremity: edema Neuro oriented x3, CN's II-XII intact bilaterally and no sensory deficits noted Sensorium / Orientation: alert Motor Exam: strength 5/5 throughout Psych mental status grossly normal Skin no rashes or lesions noted MDM MDM MDM Narrative Medical decision making narrative: CBC shows a mild anemia with a hemoglobin of 10.7 hematocrit 32.5. Platelets were low at 78. Comprehensive metabolic profile showed a creatinine of 1.25 and a BUN of 41. These are consistent with prior results. Urinalysis does not show any evidence of urinary tract infection. BNP was greater than 5000. Portable 1 view chest x-ray was obtained. On my interpretation, lung reddy are clear. There is normal cardiac silhouette. Bony thorax is normal. There is no acute process noted. Radiologist also interpreted the x-ray and agrees. High-sensitivity troponin was normal at 35. EKG was obtained. On my interpretation, there is a normal sinus rhythm with frequent PVCs. There are nonspecific ST-T wave changes noted in leads I, aVL, V5, and V6. Patient was given a dose of Lasix here. Case was discussed with the hospitalist he will admit the patient to PCU. Patient and family understood and were agreeable with the plan. All questions were answered. Lab Data Attestation: I reviewed the patient's lab results. Labs: Laboratory Results - last 24 hr 02/15/22 02/15/22 02/15/22 21:03 21:10 21:10 WBC 7.3 RBC 3.63 L Hgb 10.7 L Hct 32.5 L MCV 89.5 MCH 29.5 MCHC 32.9 RDW Std Deviation 52.8 H RDW Coeff of Cookie 16.2 H Plt Count 78 L MPV 11.8 Immature Gran % (Auto) 0.300 Neut % (Auto) 73.5 H Lymph % (Auto) 16.5 L Mitchell % (Auto) 8.1 Eos % (Auto) 1.5 Baso % (Auto) 0.1 Absolute Neuts (auto) 5.4 Absolute Lymphs (auto) 1.20 Nucleated RBC % 0 Differential Comment SCANNED Polychromasia RARE Hypochromasia 2+ Anisocytosis 1+ Target Cells 1+ Crenated Cell 1+ Sodium 134 L Potassium 4.5 Chloride 100 Carbon Dioxide 27.0 Anion Gap 7 BUN 41 H Creatinine 1.25 H Estim Creat Clear Calc 30.19 Est GFR (MDRD) Af Amer 53 L Est GFR (MDRD) Non-Af 44 L BUN/Creatinine Ratio 32.8 H Glucose 103 Calcium 8.5 Total Bilirubin 1.60 H AST 61 H ALT 56 Alkaline Phosphatase 156 H Troponin I High Sens 35 B-Natriuretic Peptide Total Protein 6.3 L Albumin 3.0 L Globulin 3.3 Albumin/Globulin Ratio 0.9 Urine Color Yellow Urine Clarity Clear Urine pH 6.0 Ur Specific [place] 1.015 Urine Protein Negative Urine Glucose (UA) 100 H Urine Ketones Negative Urine Occult Blood Negative Urine Nitrite Negative Urine Bilirubin Negative Urine Urobilinogen Normal Ur Leukocyte Esterase 25 H Urine RBC 0 SEEN Urine WBC 0-5 SEEN Ur Squamous Epith Cells 0-5 SEEN Urine Bacteria 0 SEEN Urine Mucus 0 SEEN 02/15/22 21:10 WBC RBC Hgb Hct MCV MCH MCHC RDW Std Deviation RDW Coeff of Cookie Plt Count MPV Immature Gran % (Auto) Neut % (Auto) Lymph % (Auto) Mitchell % (Auto) Eos % (Auto) Baso % (Auto) Absolute Neuts (auto) Absolute Lymphs (auto) Nucleated RBC % Differential Comment Polychromasia Hypochromasia Anisocytosis Target Cells Crenated Cell Sodium Potassium Chloride Carbon Dioxide Anion Gap BUN Creatinine Estim Creat Clear Calc Est GFR (MDRD) Af Amer Est GFR (MDRD) Non-Af BUN/Creatinine Ratio Glucose Calcium Total Bilirubin AST ALT Alkaline Phosphatase Troponin I High Sens B-Natriuretic Peptide > 5000.0 H Total Protein Albumin Globulin Albumin/Globulin Ratio Urine Color Urine Clarity Urine pH Ur Specific [place] Urine Protein Urine Glucose (UA) Urine Ketones Urine Occult Blood Urine Nitrite Urine Bilirubin Urine Urobilinogen Ur Leukocyte Esterase Urine RBC Urine WBC Ur Squamous Epith Cells Urine Bacteria Urine Mucus Radiography Chest X-Ray - ED: 1 View, Read by ED Physician, Read by Radiologist and No Acute Disease Diagnostic Testing: Clinical Impression(s) from Imaging Studies Chest X-Ray 02/15/22 21:27 IMPRESSION: No change. No pneumonia or other acute disease. Electronically Signed: Jerel Curiel MD at 22:14 EDT , EKG Initial EKG: Attestation: I personally reviewed and interpreted this EKG as follows: Interpretation: Sinus Rhythm (70) and Non-Specific ST Changes Comments: Occasional PVCs Discharge Plan Dx/Rx/DC Orders Clinical Impression: Edema, peripheral, Chronic combined systolic and diastolic CHF (congestive heart failure) Disposition Disposition: Acute Care Hospital [facility]
[2022-02-15 21:00] VITALS: BP 110/69; PULSE 74; RESP 19; O2SAT 98
[2022-02-15 21:08] LABS: Bacteria 0 SEEN /hpf (None Seen); Mucous, Urine 0 SEEN /hpf (<or=2+); Red Blood Cells-Urine 0 SEEN /hpf (0-5)
[2022-02-15 21:09] LABS: Color, Urine Yellow (Yellow); Glucose, Dipstick 100 mg/dl (Normal); Ketone-Dipstick Negative (Negative); Leukocyte Esterase-Dipstick 25 /ul (Negative); Nitrite-Dipstick Negative (Negative); Occult Blood-Urine Negative /ul (Negative); Protein-Dipstick Negative (Negative); Specific Gravity, Urine 1.015 (1.002-1.030); Urine Bilirubin Dipstick Negative (Negative); Urine Clarity Clear (Clear); Urine Urobilinogen Normal (Normal)
[2022-02-15 21:20] LABS: Absolute Neutrophil Count 5.4 X10^3/uL (2.0-7.7); Basophil# 0.01 X10^3/uL; Basophil% 0.1 % (0-1); Eosinophil# 0.11 X10^3/uL; Eosinophils% 1.5 % (0-5); Hematocrit 32.5 % (37-47); Hemoglobin 10.7 g/dL (12.0-15.0); Lymphocyte % 16.5 % (19-41); Mean Corp Hgb Conc 32.9 g/dL (32-36); Mean Corpuscular Hgb 29.5 pg (27.0-32.0); Mean Corpuscular Volume 89.5 fL (81-99); Mean Platelet Vol. 11.8 fl (6.2-12.0); Monocyte# 0.59 X10^3/uL; Monocyte% 8.1 % (0-10); NRBC Flagged by Analyzer 0 % (0-5); Neutrophil # 5.36 X10^3/uL (2.7-7.7); Neutrophil % 73.5 % (47-70); POSITIVE COUNT YES; Platelet Count 78 K/mm3 (150-450); RBC Distribution Width CV 16.2 % (11.6-14.6); RBC Distribution Width SD 52.8 fl (35.1-43.9); Red Blood Count 3.63 M/mm3 (4.2-5.4); White Blood Count 7.3 K/mm3 (4.4-11.0)
[2022-02-15 21:24] LABS: Squamous Epithelial Cells - UA 0-5 SEEN /hpf (5-10); White Blood Cells 0-5 SEEN /hpf (0-5)
[2022-02-15 21:26] LABS: Differential Indicated SCAN CRITERIA MET
--- NOTE | 2022-02-15 21:27 | RAD_ITS ---
EXAM: XR CHEST, 1 VIEW CLINICAL INDICATION: Weakness TECHNIQUE: Frontal view of the chest. This report was created using [employer] report generation technology. COMPARISON: None. FINDINGS: LUNGS AND PLEURAL SPACES: Low lung volumes. No consolidation. Fullness of the left hilar region redemonstrated. Mild subsegmental atelectasis and/or scarring at left base. No pleural effusion or pneumothorax. HEART: Cardiomegaly and/pericardial effusion redemonstrated. MEDIASTINUM: Central airways and mediastinal contour are unremarkable. BONES/JOINTS: Bones are unchanged. SOFT TISSUES: Redemonstration of surgical clips projecting over the left lateral chest wall and the left upper lateral breast region. TUBES, LINES AND DEVICES: Stable left-sided AICD/pacer. RAD/Chest 1 View (Portable) IMPRESSION: No change. No pneumonia or other acute disease. Electronically Signed: Jerel Curiel MD at 22:14 EDT ,
[2022-02-15 21:52] LABS: ALB/GLOB Ratio 0.9 RATIO (0.9-2.4); AST(SGOT) 61 U/L (15-37); Alanine Aminotransfer ALT/SGPT 56 U/L (13-56); Alkaline Phosphatase 156 U/L (45-117); Anion Gap 7 (5-15); BUN 41 mg/dL (7-18); BUN/Creat Ratio 32.8 RATIO (10-20); Calcium,Total 8.5 mg/dL (8.5-10.1); Chloride 100 mmol/L (98-107); Creatinine, Serum 1.25 mg/dL (0.55-1.02); EST Glomerular Filtration Rate 44 mL/min (>60); Est Glom Filt Rate - Afr Amer 53 mL/min (>60); Estimated Creatinine Clearance 30.19 ml/min; Globulin 3.3 g/dL (2.2-4.2); Glucose 103 mg/dL (74-106); Potassium 4.5 mmol/L (3.5-5.1); Protein, Total 6.3 g/dL (6.4-8.2); Sodium Level 134 mmol/L (136-145); Troponin-I HS 35 pg/mL (3.0-54.0)
[2022-02-15 21:53] LABS: Anisocytosis 1+; Crenated RBC 1+; Differential Comment SCANNED; Hypochromasia 2+; Polychromasia RARE; Target Cells 1+
[2022-02-15 22:06] LABS: BNP,B-Type NATRIURETIC PEPTIDE > 5000.0 pg/mL (0-100)
[2022-02-15 22:28] VITALS: BP 158/77; PULSE 78; RESP 16; O2SAT 98
--- NOTE | 2022-02-15 22:50 | EKG12_ITS ---
Test Reason : WEAKNESS Blood Pressure : / mmHG Vent. Rate : 070 BPM Atrial Rate : 070 BPM P-R Int : 160 ms QRS Dur : 096 ms QT Int : 486 ms P-R-T Axes : 077 000 144 degrees QTc Int : 524 ms Suspect unspecified pacemaker failure Sinus rhythm with frequent Premature ventricular complexes ST & T wave abnormality, consider lateral ischemia Abnormal ECG Confirmed by VICENTA FLOREZ, SARAH ([id number]), writer editor BENNETT WEAVER ([id number]) on 02/16/2022 1:44:29 PM Referred By: GABBIE Confirmed By:SARAH YADAV MD
--- NOTE | 2022-02-15 23:30 | HP.PCM.HOS_ITS ---
[facility] - General General Date of Admission: 02/15/22 HPI Narrative DESIRAE BRYANT, is a 81 F with a significant history of combined systolic and diastolic CHF on guideline directed medication who presents to the emergency department with 1 week history of progressively worsening bilateral lower extremity edema. Associated with her symptoms is leg weakness and trouble walking. Further she has shortness of breath. Patient reportedly completed Lasix infusion about 2 weeks ago after which she developed a weight gain of 2 pounds. Patient denies paroxysmal nocturnal dyspnea. She denies orthopnea. She has good appetite. She reports nocturia. Patient's PCP Dr. Branch called emergency department doctor for a possible admission and with rehabilitation after admission. [facility] Medical History Anemia Anxiety Arthritis Atrial enlargement, bilateral Cancer Carpal tunnel syndrome on both sides Chest pain Chronic combined systolic and diastolic CHF (congestive heart failure) Chronic pain Congestive heart failure Congestive heart failure COPD (chronic obstructive pulmonary disease) Degenerative disc disease, lumbar Depression Dilated cardiomyopathy DVT (deep venous thrombosis) Essential (primary) hypertension Failure of outpatient treatment GERD (gastroesophageal reflux disease) Greater trochanteric bursitis of right hip HLD (hyperlipidemia) Hypertension Hyponatremia Hypotension Hypothyroidism Hypothyroidism, iatrogenic ICD (implantable cardioverter-defibrillator) in place Irregular heart beat IT band syndrome Kidney disease Lightheadedness Low back pain Mitral valve disorder Mouth ulcers Non-ischemic cardiomyopathy Nonrheumatic mitral (valve) insufficiency Obesity On potassium wasting diuretic therapy Osteoporosis Pacemaker Palpitations Paroxysmal supraventricular tachycardia Primary osteoarthritis of right knee Recurrent cancer of left breast Right knee pain Right lumbar radiculitis Secondary pulmonary arterial hypertension Shortness of breath Trigger finger, right middle finger Home Medications calcium carbonate-vitamin D3 1 each PO DAILY 08/08/14 [History Last Taken 10/17/21] aspirin 81 mg PO DAILY 05/24/16 [History Last Taken 10/16/21] multivitamin 1 tablet PO DAILY 01/19/21 [History Last Taken 10/17/21] carvedilol [Coreg] 12.5 mg PO BID 10/17/21 [History Last Taken 10/17/21] omeprazole 40 mg capsule,delayed release 40 mg PO DAILY #90 cap 11/26/21 [Rx Last Taken Unknown] metolazone 2.5 mg tablet 2.5 mg PO .PRN PRN tab 12/24/21 [History Last Taken Unknown] allopurinol 300 mg tablet 300 mg PO DAILY #90 tab 01/06/22 [Rx Last Taken Unknown] simvastatin 40 mg tablet 40 mg PO QPM #90 tab 01/12/22 [Rx Last Taken Unknown] levothyroxine 112 mcg tablet 112 mcg PO DAILY tab 01/14/22 [History Last Taken Unknown] furosemide 40 mg tablet 40 mg PO BID #180 tab 02/01/22 [Rx Last Taken Unknown] sacubitril 24 mg-valsartan 26 mg tablet 1 tab PO BID #180 tab 02/01/22 [Rx Last Taken Unknown] cholecalciferol (vitamin D3) [Vitamin D3] 125 mcg PO DAILY 02/15/22 [History Last Taken Unknown] dapagliflozin [Farxiga] 5 mg PO DAILY PRN 02/15/22 [History Last Taken Unknown] sacubitril-valsartan [Entresto] 1 tab PO BID 02/15/22 [History Last Taken Unknown] Allergy/AdvReac Type Severity Reaction Status Date / Time cephalexin Allergy Severe Rash Verified 02/15/22 17:20 paclitaxel [From Taxol] Allergy Severe PASS OUT Verified 02/15/22 17:20 amoxicillin AdvReac Severe C-DIFF Verified 02/15/22 17:20 spironolactone AdvReac Intermediate Mouth Verified 02/15/22 17:20 sores and vaginal yeast infections hydrocodone AdvReac Vomiting Verified 02/15/22 17:20 TAPE Allergy Severe RASH, ITCH Uncoded 02/15/22 17:20 Family History Mother , age 90 CHF (congestive heart failure) Cancer Breast cancer CAD (coronary artery disease) Brother , age 71 CHF (congestive heart failure) Hx of CABG Brother CAD (coronary artery disease) Daughter Asthma Surgical History H/O right and left heart catheterization History of appendectomy History of bilateral knee replacement History of carpal tunnel release of both wrists History of hysterectomy History of implantable cardiac defibrillator (ICD) (08/22/14) History of left heart catheterization History of left knee replacement History of lumpectomy of left breast History of shoulder surgery History of total bilateral knee replacement Hx of cholecystectomy Social History household members: spouse housing: house pets and animals: No Smoking Status: Never smoker alcohol intake: never substance use type: does not use caffeine: No what type of physical activity do you participate in: bicycling and other frequency: 3-4 times per week duration: 15-30 minutes/day seatbelt use: always do you feel safe at home: Yes ROS ROS Narrative Pertinent positives and pertinent negatives as noted in HPI. All other systems were reviewed and are negative. Vital Signs Vital Signs Vital Signs: 02/15/22 17:17 02/15/22 19:40 02/15/22 21:00 Temperature 97.2 F L Temperature Source Temporal Pulse Rate 76 74 74 Respiratory Rate 16 16 19 H Blood Pressure 123/73 H 114/74 110/69 Blood Pressure Mean 89 87 82 Pulse Ox 99 97 98 Oxygen Delivery Method Room Air Room Air Room Air 02/15/22 22:28 Temperature Temperature Source Pulse Rate 78 Respiratory Rate 16 Blood Pressure 158/77 H Blood Pressure Mean 104 Pulse Ox 98 Oxygen Delivery Method Room Air Weight Weight: 93.894 kg Body Mass Index (BMI) 36.6 Physical Exam Narrative Physical exam: General: Well-nourished, well-developed. Head: Normocephalic, atraumatic, no tenderness Eyes: Vision is grossly intact. EOMI ENT, no trauma, moist mucous membranes, no rhinorrhea Neck: Nontender, full range of motion, no spinal tenderness, deformities, step- off CVS: Regular rate and rhythm. S1-S2 present. No murmur, gallop or rub. Respiratory : Diminished lung sounds, chest wall nontender, no wheezing Abdomen: Soft, nontender, nondistended, normal bowel sounds, no masses : Deferred Back: Nontender, no CVA tenderness, no midline spinal tenderness, deformities, step-offs Extremities: 2-3+ pitting edema of bilateral feet and bilateral legs. Skin: Normal color, no trauma, abrasions Neuro: Alert, oriented, cranial nerves II through XII grossly intact. Psychiatry: Normal mood. Normal affect. Not depressed. Not anxious. Results Lab / Micro Data Result Diagrams: 02/15/22 21:10 02/15/22 21:10 Labs: Laboratory Results - last 24 hr 02/15/22 21:03: Urine Color Yellow, Urine Clarity Clear, Urine pH 6.0, Ur Specific [place] 1.015, Urine Protein Negative, Urine Glucose (UA) 100 H, Urine Ketones Negative, Urine Occult Blood Negative, Urine Nitrite Negative, Urine Bilirubin Negative, Urine Urobilinogen Normal, Ur Leukocyte Esterase 25 H, Urine RBC 0 SEEN, Urine WBC 0-5 SEEN, Ur Squamous Epith Cells 0-5 SEEN, Urine Bacteria 0 SEEN, Urine Mucus 0 SEEN 02/15/22 21:10: WBC 7.3, RBC 3.63 L, Hgb 10.7 L, Hct 32.5 L, MCV 89.5, MCH 29.5, MCHC 32.9, RDW Std Deviation 52.8 H, RDW Coeff of Cookie 16.2 H, Plt Count 78 L, MPV 11.8, Immature Gran % (Auto) 0.300, Neut % (Auto) 73.5 H, Lymph % (Auto) 16.5 L, Evans % (Auto) 8.1, Eos % (Auto) 1.5, Baso % (Auto) 0.1, Absolute Neuts (auto) 5.4, Absolute Lymphs (auto) 1.20, Nucleated RBC % 0, Differential Comment SCANNED, Polychromasia RARE, Hypochromasia 2+, Anisocytosis 1+, Target Cells 1+, Crenated Cell 1+ 02/15/22 21:10: Sodium 134 L, Potassium 4.5, Chloride 100, Carbon Dioxide 27.0, Anion Gap 7, BUN 41 H, Creatinine 1.25 H, Estim Creat Clear Calc 30.19, Est GFR (MDRD) Af Amer 53 L, Est GFR (MDRD) Non-Af 44 L, BUN/Creatinine Ratio 32.8 H, Glucose 103, Calcium 8.5, Total Bilirubin 1.60 H, AST 61 H, ALT 56, Alkaline Phosphatase 156 H, Troponin I High Sens 35, Total Protein 6.3 L, Albumin 3.0 L, Globulin 3.3, Albumin/Globulin Ratio 0.9 02/15/22 21:10: B-Natriuretic Peptide > 5000.0 H Radiology Impression Chest X-Ray 02/15/22 21:27 IMPRESSION: No change. No pneumonia or other acute disease. Electronically Signed: Jerel Curiel MD at 22:14 EDT , Assessment & Plan Assessment/Plan (1) Combined systolic and diastolic cardiac dysfunction: PLAN: Acute Exacerbation of combined systolic and diastolic cardiac dysfunction Echocardiogram on 08/31/2021 showed ejection fraction of 35% and stage II diastolic dysfunction. There was moderate global hypokinesis of the left ventricle. The left atrium was mildly enlarged. The right atrium was mildly enlarged. There was moderate eccentric mitral valve insufficiency. There was moderate tricuspid valve insufficiency. Pulmonary artery systolic pressure was 55 mmHg indicating moderate pulmonary hypertension. Weight on admission to the floor; and then daily Strict I&O's CXR was visualized and independently interpreted and agree with radiology interpretation of no pneumonia or other acute disease. BNP was more than 5000. On home Lasix 40 mg p.o. twice daily. Received Lasix 40 mg IV push at emergency department. Lasix 40 mg IV push twice daily ordered. Potassium was 4.5. Trend CMP Continue home Mathew hose Guideline medication of Entresto and dapagliflozin continued. Fluid restriction of 1500 mls daily Cardiac diet Elevated liver enzymes Patient with AST of 61. Review of record shows normal AST in the past. ALT is normal. Bilirubin is 1.60. Likely secondary to passive congestion. Trend CMP. CKD stage IIIa Stable. Trend CMP Debility PT and OT to work with patient for strengthening and balance training. Case management consult. DVT prophylaxis: Subcutaneous heparin ordered. Charges/Coding Visit Charges Inpatient E&M: 36021 Init Hosp L3
[2022-02-16] VITALS (12 sets, daily range): BP systolic 98–115; BP diastolic 57–71; PULSE 67–80; RESP 16–21; TEMP 36.6–36.8; O2SAT 96–98; BMI 36.7
[2022-02-16] MEDS: Furosemide 40 MG/4 ML Vial IV ×3 (00:04→16:59)
[2022-02-16 06:24] LABS: Absolute Lymphocyte Count 1.07 X10^3/uL (0.83-4.51); Absolute Neutrophil Count 4.2 X10^3/uL (2.0-7.7); Basophil# 0.01 X10^3/uL; Basophil% 0.2 % (0-1); Eosinophil# 0.09 X10^3/uL; Eosinophils% 1.5 % (0-5); Hematocrit 31.5 % (37-47); Hemoglobin 10.4 g/dL (12.0-15.0); Lymphocyte # 1.07 X10^3/ul (0.83-4.51); Lymphocyte % 18.2 % (19-41); Mean Corpuscular Hgb 29.9 pg (27.0-32.0); Mean Corpuscular Volume 90.5 fL (81-99); Mean Platelet Vol. 11.1 fl (6.2-12.0); Monocyte# 0.54 X10^3/uL; Monocyte% 9.2 % (0-10); NRBC Flagged by Analyzer 0 % (0-5); Neutrophil # 4.15 X10^3/uL (2.7-7.7); Neutrophil % 70.6 % (47-70); POSITIVE COUNT YES; Platelet Count 67 K/mm3 (150-450); RBC Distribution Width CV 16.2 % (11.6-14.6); Red Blood Count 3.48 M/mm3 (4.2-5.4); White Blood Count 5.9 K/mm3 (4.4-11.0)
[2022-02-16 06:49] LABS: ALB/GLOB Ratio 0.9 RATIO (0.9-2.4); AST(SGOT) 44 U/L (15-37); Alanine Aminotransfer ALT/SGPT 48 U/L (13-56); Albumin, Serum 2.6 g/dL (3.2-5.0); Alkaline Phosphatase 143 U/L (45-117); Anion Gap 7 (5-15); BUN 38 mg/dL (7-18); BUN/Creat Ratio 33.6 RATIO (10-20); Calcium,Total 8.2 mg/dL (8.5-10.1); Chloride 103 mmol/L (98-107); Creatinine, Serum 1.13 mg/dL (0.55-1.02); EST Glomerular Filtration Rate 49 mL/min (>60); Est Glom Filt Rate - Afr Amer 60 mL/min (>60); Estimated Creatinine Clearance 33.39 ml/min; Glucose 101 mg/dL (74-106); Potassium 3.3 mmol/L (3.5-5.1); Protein, Total 5.6 g/dL (6.4-8.2); Sodium Level 136 mmol/L (136-145)
--- NOTE | 2022-02-16 07:41 | ECHOCS_ITS ---
Reason For Study: CHF Procedure This was a 2D Doppler, Color Flow transthoracic echocardiogram. The study was technically difficult. Contrast injection was performed. Exam performed portable in patient room. Left Ventricle Moderately dilated left ventricle. The estimated ejection fraction is 35 %. Stage 2 diastolic dysfunction. There is moderate to severe global hypokinesis of the left ventricle. Right Ventricle Normal RV size. ICD or pacer leads identified within the right ventricle. Normal systolic function. Atria The left atrium is moderately enlarged. The right atrium is moderately enlarged. Mitral Valve Bileaflet diffuse mitral valve thickening. Moderate (2+) eccentric mitral valve insufficiency. Tricuspid Valve Normal tricuspid valve. Moderately severe (3+) tricuspid valve insufficiency. Pulmonary artery systolic pressure is 25 mmHg. Aortic Valve Trisinus/trileaflet aortic valve. Mild (1+) aortic valve insufficiency. Pulmonic Valve The pulmonic valve is not well visualized. Great Vessels Normal aortic root. The pulmonary artery is normal size. No collapse of the inferior vena cava. Pericardium/Pleural No pericardial effusion. Medication Diluted definity 3ml given slow IV push to enhance endocardial definition. MMode/2D Measurements & Calculations LVIDd: 6.5 cm IVSd: 0.84 cm LA dimension: 4.7 cm LVIDs: 5.7 cm LVPWd: 0.79 cm RVDd: 5.2 cm FS: 12.8 % LAV(MOD-bp): 79.9 ml LVAd ap4: 45.4 cm2 SV(MOD-sp4): 43.1 ml LAV(MOD-bp) Indexed: 40.7 ml/m2 LVLd ap4: 8.6 cm LAV(MOD-sp2): 72.1 ml EDV(MOD-sp4): 192.9 ml LAV(MOD-sp4): 83.0 ml EDV(sp4-el): 203.1 ml LVAs ap4: 38.5 cm2 LVLs ap4: 8.2 cm ESV(MOD-sp4): 149.8 ml ESV(sp4-el): 153.5 ml EF(MOD-sp4): 22.3 % EF(sp4-el): 24.5 % SV(sp4-el): 49.7 ml LA A4 area: 25.3 cm2 RA A4 area: 25.5 cm2 Time Measurements MV dec time: 0.16 sec Doppler Measurements & Calculations MV E max romario: 103.4 cm/sec Lat Peak E' Romario: 9.6 cm/sec Med Peak E' Romario: 3.9 cm/sec MV A max romario: 79.3 cm/sec E/E' lat: 10.8 E/E' med: 26.7 MV E/A: 1.3 MV V2 max: 115.2 cm/sec MV P1/2t max romario: 115.2 cm/sec Ao V2 max: 150.7 cm/sec MV max P.3 mmHg MV P1/2t: 39.1 msec Ao max P.1 mmHg MV V2 mean: 62.2 cm/sec MV mean P.8 mmHg MV dec slope: 863.1 cm/sec2 MV V2 VTI: 26.1 cm MVA(P1/2t): 5.6 cm2 AI max romario: 336.1 cm/sec LV V1 max: 95.1 cm/sec MR max romario: 482.3 cm/sec AI max P.2 mmHg LV V1 max P.6 mmHg MR max P.0 mmHg MR mean romario: 367.6 cm/sec AI dec slope: 172.2 cm/sec2 MR mean P.0 mmHg AI P1/2t: 571.6 msec MR VTI: 172.4 cm PA V2 max: 70.3 cm/sec TR max romario: 239.3 cm/sec TR max P.9 mmHg ECHO/Echo Complete W/ Contrast Interpretation Summary Moderately dilated left ventricle. The estimated ejection fraction is 35 %. There is moderate to severe global hypokinesis of the left ventricle. Stage 2 diastolic dysfunction. Moderate (2+) eccentric mitral valve insufficiency. Pulmonary artery systolic pressure is 25 mmHg. Mild (1+) aortic valve insufficiency. Compared to previous study, the left ventricular systolic function is the same. . Contrast injection was performed. Ordering Physician: Jayshree Ponce Referring Physician: Annetta Branch Performed By: Kvng Paz RCS
[2022-02-16] MEDS: SACUBITRIL/VALSARTAN 24/26 MG TABLET 1 EACH PO ×2 (08:06→20:55)
[2022-02-16] MEDS: Allopurinol 300 MG Tablet PO (08:06)
[2022-02-16] MEDS: Aspirin E.C. 81 MG Tablet PO (08:07)
[2022-02-16] MEDS: Multivitamins,Therapeutic Tablet 1 TABLET PO (08:07)
[2022-02-16] MEDS: Cholecalciferol (Vit D3) 125 MCG CAPSULE (5,000 UNITS) PO (08:07)
[2022-02-16] MEDS: Carvedilol 12.5 MG Tablet PO ×2 (08:07→20:54)
[2022-02-16] MEDS: Pantoprazole Sodium 40 MG Tablet PO (08:07)
[2022-02-16] MEDS: Heparin Injection (Vial) 5,000 UNIT/ML VIAL 5000 UNIT SC ×2 (08:07→20:56)
[2022-02-16] MEDS: Calcium Carb/Vitamin D 1 TABLET Tablet PO (08:07)
[2022-02-16] MEDS: Empagliflozin 10 MG Tablet PO (08:08)
[2022-02-16] MEDS: Nystatin Powder 15gm Bottle 1 APPLIC TOPICAL ×2 (08:09→20:56)
[2022-02-16] MEDS: 0.9% Saline Lock 10 ML Syringe IV ×2 (08:10→16:58)
--- NOTE | 2022-02-16 09:25 | CASEMGMT ---
Palliative referral was sent in 12/2021 for pt. Call to Rebekah at palliative and she states that pt declined need for palliative on 01/26/22. Dr. Ponce and Levi CASH MANAGEMENT SPECIALIST aware. Judy RN CM
--- NOTE | 2022-02-16 12:12 | PCM.PN.HOSP ---
Documented by User: Candy Davis NP, MALTED [employer]K SUPERVISOR-C 02/16/22 12:43 Subjective Subjective Patient seen and examined. Reports improvement in breathing as well as edema. Continues to have pitting edema bilateral lower extremities however feels her upper extremities and face are less puffy. Amendable to palliative consult. She denies chest pain or other symptoms. Objective Data Objective Data Vital Signs: Vital Signs Temp Pulse Resp BP Pulse Ox 98.2 F 77 18 105/57 L 96 02/16/22 08:05 02/16/22 11:20 02/16/22 08:05 02/16/22 08:05 02/16/22 08:05 Oxygen Delivery Method Room Air Weight: 207 lb 7.28 oz Body Mass Index (BMI) 36.7 Intake & Output: Intake and Output for Last 24 Hours 02/14/22 02/15/22 02/16/22 23:59 23:59 23:59 Intake Total 440 / 440 Output Total 2049 / 2049 Balance -1610 / -1610 Lab / Micro Data Result Diagrams: 02/16/22 06:14 02/16/22 06:14 Labs: Laboratory Results - last 24 hr 02/15/22 21:03: Urine Color Yellow, Urine Clarity Clear, Urine pH 6.0, Ur Specific Portis 1.015, Urine Protein Negative, Urine Glucose (UA) 100 H, Urine Ketones Negative, Urine Occult Blood Negative, Urine Nitrite Negative, Urine Bilirubin Negative, Urine Urobilinogen Normal, Ur Leukocyte Esterase 25 H, Urine RBC 0 SEEN, Urine WBC 0-5 SEEN, Ur Squamous Epith Cells 0-5 SEEN, Urine Bacteria 0 SEEN, Urine Mucus 0 SEEN 02/15/22 21:10: WBC 7.3, RBC 3.63 L, Hgb 10.7 L, Hct 32.5 L, MCV 89.5, MCH 29.5, MCHC 32.9, RDW Std Deviation 52.8 H, RDW Coeff of Cookie 16.2 H, Plt Count 78 L, MPV 11.8, Immature Gran % (Auto) 0.300, Neut % (Auto) 73.5 H, Lymph % (Auto) 16.5 L, [place] % (Auto) 8.1, Eos % (Auto) 1.5, Baso % (Auto) 0.1, Absolute Neuts (auto) 5.4, Absolute Lymphs (auto) 1.20, Nucleated RBC % 0, Differential Comment SCANNED, Polychromasia RARE, Hypochromasia 2+, Anisocytosis 1+, Target Cells 1+, Crenated Cell 1+ 02/15/22 21:10: Sodium 134 L, Potassium 4.5, Chloride 100, Carbon Dioxide 27.0, Anion Gap 7, BUN 41 H, Creatinine 1.25 H, Estim Creat Clear Calc 30.19, Est GFR (MDRD) Af Amer 53 L, Est GFR (MDRD) Non-Af 44 L, BUN/Creatinine Ratio 32.8 H, Glucose 103, Calcium 8.5, Total Bilirubin 1.60 H, AST 61 H, ALT 56, Alkaline Phosphatase 156 H, Troponin I High Sens 35, Total Protein 6.3 L, Albumin 3.0 L, Globulin 3.3, Albumin/Globulin Ratio 0.9 02/15/22 21:10: B-Natriuretic Peptide > 5000.0 H 02/16/22 06:14: WBC 5.9, RBC 3.48 L, Hgb 10.4 L, Hct 31.5 L, MCV 90.5, MCH 29.9, MCHC 33.0, RDW Std Deviation 53.0 H, RDW Coeff of Cookie 16.2 H, Plt Count 67 L, MPV 11.1, Immature Gran % (Auto) 0.300, Neut % (Auto) 70.6 H, Lymph % (Auto) 18.2 L, [place] % (Auto) 9.2, Eos % (Auto) 1.5, Baso % (Auto) 0.2, Absolute Neuts (auto) 4.2, Absolute Lymphs (auto) 1.07, Nucleated RBC % 0 02/16/22 06:14: Sodium 136, Potassium 3.3 L, Chloride 103, Carbon Dioxide 26.0, Anion Gap 7, BUN 38 H, Creatinine 1.13 H, Estim Creat Clear Calc 33.39, Est GFR (MDRD) Af Amer 60, Est GFR (MDRD) Non-Af 49 L, BUN/Creatinine Ratio 33.6 H, Glucose 101, Calcium 8.2 L, Total Bilirubin 1.30 H, AST 44 H, ALT 48, Alkaline Phosphatase 143 H, Total Protein 5.6 L, Albumin 2.6 L, Globulin 3.0, Albumin/Globulin Ratio 0.9 Radiography Diagnostic Testing: Radiology Impression Chest X-Ray 02/15/22 21:27 IMPRESSION: No change. No pneumonia or other acute disease. Electronically Signed: Jerel Curiel MD at 22:14 EDT , Physical Exam Const alert, oriented x3 and no apparent distress Orientation / Consciousness: awake, oriented to person, oriented to place and oriented to time HEENT normocephalic and moist oral mucous membranes Eyes PERRL, EOMs intact bilaterally and conjunctivae normal Neck no lymphadenopathy Resp clear to auscultation bilaterally Auscultation: diminished lung sounds Cardio regular rate and regular rhythm Cardio Narrative: + murmur Peripheral Pulses: pulses 2+ throughout GI normal to inspection, nondistended, normoactive bowel sounds, non-tender and non-distended Extremity normal to inspection General Extremity: edema bilateral lower extremity (+2 pitting up to upper thighs. Generalized swelling as well. ) Skin no rashes or lesions noted Lesions: no lesions Rashes: no rashes Trauma: no lacerations or abrasions Neuro CN's II-XII intact bilaterally, no focal motor deficits, no sensory deficits noted and deep tendon reflexes 2+ bilaterally Psych mental status grossly normal and affect normal Assessment & Plan Assessment/Plan (1) Combined systolic and diastolic cardiac dysfunction: PLAN: 1. Acute on chronic combined systolic and diastolic heart failure-BNP greater than 5000. Patient with significant edema. IV Lasix. Strict I&O. Echocardiogram 08/31/2021 demonstrated an EF of 35%, stage II diastolic dysfunction, moderate mitral valve insufficiency, pulmonary artery systolic pressure 55 mmHg. Repeat echo demonstrates an EF of 35%, stage II diastolic dysfunction, moderate mitral valve insufficiency, pulmonary artery systolic pressure 25 mmHg. Amenable to palliative care consult. 2. Elevated liver enzymes-trending down. Likely secondary to congestion. 3. Chronic kidney disease stage IIIb- at baseline. 4. History of recurrent left breast cancer- continue follow up with oncology. 5. Chronic normocytic anemia- stable. 6. Hypertension-stable, continue home regimen. 7. Hyperlipidemia-continue statin. 8. Hypothyroidism-continue Synthroid regimen. 9. GERD-continue PPI. 10. Obesity-encouraged diet and lifestyle modifications. 11. Gout-on allopurinol. 12. Weakness, debility-plan for TCU pending acceptance. PT/OT. DVT prophylaxis-Heparin subcu This patient was seen by ROYA RichardC under the supervision of Dr. Ponce. Documented by User: Dr. Jayshree Ponce DO 02/16/22 14:08 Subjective Subjective This patient was seen in conjunction with Candy Davis NP. The following is a representation of independent history and physical examination. Please see below for addendum the above. Patient indicates that she had gained weight and her clothes were not fitting as well. She denies any significant orthopnea or paroxysmal nocturnal dyspnea however does indicate she has significant shortness of breath with exertion more than a few feet. She also indicates that she feels like her hands arms and legs were swelling more as well as her abdomen. She states she does feel better since being admitted. She is open to discussing palliative care if a consultation is made. She states she was initially resistant to this because she felt it was hospice and she is not ready for that yet. Patient does state that she is aware there is concerned that she may have sleep apnea however has not yet had a polysomnography. We did discuss that getting this treated may be beneficial both for her sleeping issues and daytime fatigue as well as her heart. Objective Data Lab / Micro Data Result Diagrams: 02/16/22 06:14 02/16/22 06:14 Physical Exam Const alert, oriented x3, no apparent distress and well nourished Constitutional Narrative: Very pleasant elderly obese white female sitting up in a chair at the bedside, appears comfortable nontoxic, no signs of shortness of breath Exam Limitations: no limitations Nutritional Appearance: obese HEENT head/scalp atraumatic and moist oral mucous membranes HEENT Narrative: Mallampati is 3 Head and Scalp: normocephalic Resp normal respiratory effort, no retractions, no use of accessory muscles and clear to auscultation bilaterally Auscultation: Negative for crackles, rales, rhonchi or wheezes Cardio regular rate, regular rhythm, S1 normal heart sound, S2 normal heart sound, no rub, no gallops, no clicks and no JVD Cardio Narrative: 3 out of 6 systolic murmur noted to be most pronounced at the left lower sternal border GI normal to inspection, nondistended, normoactive bowel sounds, soft to palpation, non-tender and non-distended GI Narrative: Patient with abdominal pitting edema in the soft tissue spaces Extremity Extremity Narrative: Pitting edema noted up into the thighs, bilateral lower extremity with Surinder wraps in place, no cyanosis or clubbing Peripheral Pulses: Yes pulses 2+ throughout Skin no rashes or lesions noted, no wounds, skin turgor normal, no jaundice, no petechiae and no mottling Neuro oriented x3, CN's II-XII intact bilaterally, moves all extremities and no focal motor deficits Sensorium / Orientation: awake and alert Speech: speech normal Psych affect normal Assessment & Plan Assessment/Plan (1) Acute on chronic combined systolic and diastolic heart failure: (2) Frequent falls: (3) Generalized weakness: PLAN: Assessment: Acute on chronic combined systolic and diastolic heart failure with right-sided heart failure component Falls Generalized debility Transaminitis secondary to passive congestion CKD stage IIIb Chronic normocytic anemia Hypertension Hyperlipidemia Hypothyroidism GERD History of recurrent left breast cancer GERD Obesity History of gout Suspected JOVITA Plan: -Continue aggressive diuresis -Continue strict I's and O's -Can take fluid restriction to 1500 cc a day -Low-sodium diet -We will need to consider the addition of metolazone for added diuresis -Echocardiogram was done today and compared to her previous echocardiogram done 6 months ago--> overall shows significant stability -Echocardiogram done 02/16/2022 demonstrated an EF of 35% with moderate to severe global left ventricular hypokinesis, stage II diastolic dysfunction, moderate eccentric mitral valve insufficiency, pulmonary arterial pressure of 25 mmHg and 1+ aortic valve insufficiency -Patient is willing to discuss care with palliative medicine and attempt to try to keep her out of the hospital -PT and OT to follow with plans for placement at TCU at discharge -Recommend outpatient polysomnography as patient does have daytime fatigue and this may help with this as well as help with her heart failure issues Charges/Coding Visit Charges Inpatient E&M: 94786 Subs Hosp L2
--- NOTE | 2022-02-16 13:18 | CASEMGMT ---
SW reviewed chart and noted patient would like to go somewhere for rehab. SW met with patient. Introduced self and role at [facility]. SW asked patient about her plan at discharge and she confirmed she needs rehab. SW asked if she knows where she wants to go or if She needs a list. Patient said, I thought I was staying here for rehab. SW asked if she meant [facility] TCU and that is what she meant. SW checked and TCU would have a bed for patient. Patient will need pre-cert. SW did let patient know TCU can take her pending insurance approval. Plan: d/c to [facility] TCU pending being medically ready and insurance authorization. Tiera GARCIA
[2022-02-16] MEDS: Potassium Chloride Oral Tablet 20 MEQ 40 MEQ PO (13:32)
--- NOTE | 2022-02-16 14:01 | CASEMGMT ---
Per Levi SUPPORT TECHNICIAN, pt is agreeable to palliative c/s now and states previously declined palliative because she thought they were only hospice. Order placed and referral e-mailed. Judy LOVE CM
--- NOTE | 2022-02-16 15:48 | CON.PCM.PA_ITS ---
Assessment & Plan Assessment/Plan (1) Acute on chronic combined systolic and diastolic heart failure: (2) Frequent falls: (3) Generalized weakness: (4) Dyspnea on exertion: (5) Chronic pain: (6) Debility: PLAN: Leslie is a 81-year-old female with multiple hospitalization already in 2021 for CHF exacerbations. She endorses progressive weakness, fatigue, dyspnea with exertion, and decreased ability to perform ADLs. 1. Acute on chronic combined CHF: continue current diuretic orders and fluid restriction. Ongoing education regarding diet. Would agree with addition of metolazone once more stable to minimize impact on renal function. 2. Weakness, debility, fatigue, and poor functional status: agree discharge to TCU for skilled therapy as she has been having frequent falls and difficulty entering the home (1 step from garage). Patient and are agreeable to outpatient palliative medicine when she returns home as an added level of supporting care. 3. Shortness of breath/dyspnea with exertion, related to left and cardiomyopathy: Would recommend evaluating for home oxygen, though she does not have any recorded hypoxia. Would consider very low-dose opioid therapy at home to decrease work of breathing and improve symptoms. Thank you for the opportunity to participate in this patient's care. Please do not hesitate to contact [facility] with any further questions or concerns. Palliative direct line is [phone]. We will follow and have the liaison contact the significant other following his hospital discharge to set up home appointment. Greater than 50% of [id number] visit was dedicated to education and counseling about palliative care services, limitations, medications, comorbid conditions, and potential assistance with management and care coordination moving forward. Start time: 1548 Stop time: 5 HPI Consult Data Date of Consult: 02/16/22 HPI Narrative HPI Narrative: 02/15/2022 LESLIE BRYANT, is a 81 F who presented with progressive weakness and lower extremity edema that had been getting worse over the period of 1 week. Several falls within the past week, increased shortness of breath, and a mild cough. Her CBC revealed mild anemia with H&H of 10.7/32.5, platelets are low at 78. CMP showed a creatinine of 1.25 and BUN of 41, which are consistent with her previous results and known CKD stage IIIa. BNP was >5000. Troponin was unremarkable. Portable chest x-ray showed no acute findings. EKG revealed normal sinus rhythm with PVCs. Given IV Lasix and admitted for further treatment. Echo completed today reveals an EF of 35%, stage II diastolic dysfunction, and a pulmonary artery systolic pressure 25 mmHg. It is of note that patient has a ICD placed in 2013. Current breast cancer, or iginally diagnosed in 1994 when she had a lumpectomy, again in 2007 when she received chemotherapy which resulted in her cardiomyopathy, and again in 2012- when she was treated with radiation. Palliative medicine has been consulted to assist patient following her discharge with symptom management and care coordination. At present, the discharge plan from the hospital will be to TCU for skilled therapy, then to transition back home. [facility] Medical History Anemia Anxiety Arthritis Atrial enlargement, bilateral Cancer Carpal tunnel syndrome on both sides Chest pain Chronic combined systolic and diastolic CHF (congestive heart failure) Chronic pain Congestive heart failure Congestive heart failure COPD (chronic obstructive pulmonary disease) Degenerative disc disease, lumbar Depression Dilated cardiomyopathy DVT (deep venous thrombosis) Essential (primary) hypertension Failure of outpatient treatment GERD (gastroesophageal reflux disease) Greater trochanteric bursitis of right hip HLD (hyperlipidemia) Hypertension Hyponatremia Hypotension Hypothyroidism Hypothyroidism, iatrogenic ICD (implantable cardioverter-defibrillator) in place Irregular heart beat IT band syndrome Kidney disease Lightheadedness Low back pain Mitral valve disorder Mouth ulcers Non-ischemic cardiomyopathy Nonrheumatic mitral (valve) insufficiency Obesity On potassium wasting diuretic therapy Osteoporosis Pacemaker Palpitations Paroxysmal supraventricular tachycardia Primary osteoarthritis of right knee Recurrent cancer of left breast Right knee pain Right lumbar radiculitis Secondary pulmonary arterial hypertension Shortness of breath Trigger finger, right middle finger Home Medications calcium carbonate-vitamin D3 1 each PO DAILY 08/08/14 [History Last Taken 10/17/21] aspirin 81 mg PO DAILY 05/24/16 [History Last Taken 10/16/21] multivitamin 1 tablet PO DAILY 01/19/21 [History Last Taken 10/17/21] carvedilol [Coreg] 12.5 mg PO BID 10/17/21 [History Last Taken 10/17/21] omeprazole 40 mg capsule,delayed release 40 mg PO DAILY #90 cap 11/26/21 [Rx Last Taken Unknown] metolazone 2.5 mg tablet 2.5 mg PO .PRN PRN tab 12/24/21 [History Last Taken Unknown] allopurinol 300 mg tablet 300 mg PO DAILY #90 tab 01/06/22 [Rx Last Taken Unknown] simvastatin 40 mg tablet 40 mg PO QPM #90 tab 01/12/22 [Rx Last Taken Unknown] levothyroxine 112 mcg tablet 112 mcg PO DAILY tab 01/14/22 [History Last Taken Unknown] furosemide 40 mg tablet 40 mg PO BID #180 tab 02/01/22 [Rx Last Taken Unknown] cholecalciferol (vitamin D3) [Vitamin D3] 125 mcg PO DAILY 02/15/22 [History Last Taken Unknown] dapagliflozin [Farxiga] 5 mg PO DAILY 02/15/22 [History Last Taken Unknown] sacubitril-valsartan [Entresto] 1 tab PO BID 02/15/22 [History Last Taken Unknown] Allergy/AdvReac Type Severity Reaction Status Date / Time cephalexin Allergy Severe Rash Verified 02/15/22 17:20 paclitaxel [From Taxol] Allergy Severe PASS OUT Verified 02/15/22 17:20 amoxicillin AdvReac Severe C-DIFF Verified 02/15/22 17:20 spironolactone AdvReac Intermediate Mouth Verified 02/15/22 17:20 sores and vaginal yeast infections hydrocodone AdvReac Vomiting Verified 02/15/22 17:20 TAPE Allergy Severe RASH, ITCH Uncoded 02/15/22 17:20 Family History Mother , age 90 CHF (congestive heart failure) Cancer Breast cancer CAD (coronary artery disease) Brother , age 71 CHF (congestive heart failure) Hx of CABG Brother CAD (coronary artery disease) Daughter Asthma Surgical History H/O right and left heart catheterization History of appendectomy History of bilateral knee replacement History of carpal tunnel release of both wrists History of hysterectomy History of implantable cardiac defibrillator (ICD) (08/22/14) History of left heart catheterization History of left knee replacement History of lumpectomy of left breast History of shoulder surgery History of total bilateral knee replacement Hx of cholecystectomy Social History household members: spouse housing: house pets and animals: No Smoking Status: Never smoker alcohol intake: never substance use type: does not use caffeine: No what type of physical activity do you participate in: bicycling and other frequency: 3-4 times per week duration: 15-30 minutes/day seatbelt use: always do you feel safe at home: Yes ROS Constitutional Constitutional: Reports fatigue and frequent falls Cardiovascular Cardiovascular: Reports dyspnea on exertion, easily tiring during activity and edema Respiratory/Chest Respiratory/Chest: Reports cough and dyspnea on exertion Musculoskeletal Musculoskeletal: Reports difficulty walking and limited range of motion Neurologic Neurologic: Reports none Psychiatric Psychiatric: Reports none Physical Exam Const alert, oriented x3 and no apparent distress General Appearance: cooperative and comfortable Resp normal respiratory effort, No normal air movement, no retractions and no use of accessory muscles Auscultation: diminished lung sounds bilateral lower Cardio regular rate, regular rhythm, S1 normal heart sound, S2 normal heart sound and peripheral pulses 2+ throughout; Negative for no murmurs GI normal to inspection, nondistended, normoactive bowel sounds, soft to palpation and non-tender Extremity normal to inspection and full ROM; Negative for no pedal edema Extremity Narrative: 2+ pitting edema to knees Skin no rashes or lesions noted, no wounds and skin turgor normal Neuro oriented x3, CN's II-XII intact bilaterally, moves all extremities and no focal motor deficits Psych mental status grossly normal, thought process normal, cooperative, affect normal and speech normal
[2022-02-16] MEDS: Atorvastatin Calcium 20 MG Tablet PO (20:55)
[2022-02-17] VITALS (10 sets, daily range): BP systolic 97–120; BP diastolic 56–69; PULSE 73–84; RESP 16–18; TEMP 36.4–37; O2SAT 92–97
[2022-02-17] MEDS: MELATONIN 3 MG TABLET PO (00:04)
--- NOTE | 2022-02-17 04:47 | EKG12_ITS ---
Test Reason : ARHYTHMIA Blood Pressure : / mmHG Vent. Rate : 076 BPM Atrial Rate : 076 BPM P-R Int : 160 ms QRS Dur : 098 ms QT Int : 450 ms P-R-T Axes : 057 007 174 degrees QTc Int : 506 ms Sinus rhythm Frequent PVC's Nonspecific ST-T Changes Prolonged QT Abnormal ECG When compared with ECG of 15-FEB-2022 23:57, Premature ventricular complexes are no longer Present Confirmed by CLAUDETTE FLOREZ, WILFREDO ([id number]), pictures editor BENNETT WEAVER ([id number]) on 02/18/2022 2:40:14 PM Referred By: ARON Confirmed By:PAIGE WILKINS MD
[2022-02-17 07:17] LABS: Absolute Lymphocyte Count 1.29 X10^3/uL (0.83-4.51); Absolute Neutrophil Count 4.5 X10^3/uL (2.0-7.7); Basophil# 0.02 X10^3/uL; Basophil% 0.3 % (0-1); Eosinophil# 0.09 X10^3/uL; Eosinophils% 1.4 % (0-5); Hematocrit 31.2 % (37-47); Hemoglobin 9.9 g/dL (12.0-15.0); Lymphocyte # 1.29 X10^3/ul (0.83-4.51); Lymphocyte % 19.7 % (19-41); Mean Corp Hgb Conc 31.7 g/dL (32-36); Mean Corpuscular Hgb 28.9 pg (27.0-32.0); Mean Platelet Vol. 11.7 fl (6.2-12.0); Monocyte# 0.64 X10^3/uL; Monocyte% 9.8 % (0-10); NRBC Flagged by Analyzer 0.3 % (0-5); Neutrophil % 68.5 % (47-70); POSITIVE COUNT YES; Platelet Count 82 K/mm3 (150-450); RBC Distribution Width CV 16.5 % (11.6-14.6); RBC Distribution Width SD 53.9 fl (35.1-43.9); Red Blood Count 3.43 M/mm3 (4.2-5.4); White Blood Count 6.6 K/mm3 (4.4-11.0)
[2022-02-17 07:53] LABS: Magnesium 2.5 mg/dL (1.6-2.6)
[2022-02-17 07:57] LABS: Anion Gap 7 (5-15); BUN 40 mg/dL (7-18); BUN/Creat Ratio 40.1 RATIO (10-20); Calcium,Total 8.3 mg/dL (8.5-10.1); Chloride 101 mmol/L (98-107); EST Glomerular Filtration Rate 57 mL/min (>60); Est Glom Filt Rate - Afr Amer 69 mL/min (>60); Estimated Creatinine Clearance 37.74 ml/min; Glucose 109 mg/dL (74-106); Potassium 3.4 mmol/L (3.5-5.1); Sodium Level 137 mmol/L (136-145)
[2022-02-17] MEDS: Empagliflozin 10 MG Tablet PO (09:20)
[2022-02-17] MEDS: Aspirin E.C. 81 MG Tablet PO (09:20)
[2022-02-17] MEDS: Allopurinol 300 MG Tablet PO (09:20)
[2022-02-17] MEDS: Pantoprazole Sodium 40 MG Tablet PO (09:20)
[2022-02-17] MEDS: Heparin Injection (Vial) 5,000 UNIT/ML VIAL 5000 UNIT SC ×2 (09:20→21:30)
[2022-02-17] MEDS: Calcium Carb/Vitamin D 1 TABLET Tablet PO (09:20)
[2022-02-17] MEDS: SACUBITRIL/VALSARTAN 24/26 MG TABLET 1 EACH PO ×2 (09:20→21:30)
[2022-02-17] MEDS: Potassium Chloride Oral Tablet 20 MEQ 40 MEQ PO (09:20)
[2022-02-17] MEDS: Cholecalciferol (Vit D3) 125 MCG CAPSULE (5,000 UNITS) PO (09:21)
[2022-02-17] MEDS: Nystatin Powder 15gm Bottle 1 APPLIC TOPICAL ×2 (09:21→21:30)
[2022-02-17] MEDS: Multivitamins,Therapeutic Tablet 1 TABLET PO (09:21)
[2022-02-17] MEDS: Carvedilol 12.5 MG Tablet PO ×2 (09:21→21:32)
--- NOTE | 2022-02-17 10:49 | PN.HOSP_ITS ---
Documented by User: Jose WELLER 02/17/22 11:10 Subjective Subjective Patient is a 81-year-old female comfortably resting in a chair, alert and oriented x3. Patient reports that her lower extremity swelling and shortness of breath have improved from admission, although still reports pain to palpation ab out the lower extremities. Denies development of any new symptoms overnight. Objective Data Objective Data Vital Signs: Vital Signs Temp Pulse Resp BP Pulse Ox 97.7 F L 75 16 108/57 L 96 02/17/22 09:11 02/17/22 09:11 02/17/22 09:11 02/17/22 09:11 02/17/22 09:11 Oxygen Delivery Method Room Air Weight: 205 lb 0.478 oz Body Mass Index (BMI) 36.7 Intake & Output: Intake and Output for Last 24 Hours 02/15/22 02/16/22 02/17/22 23:59 23:59 23:59 Intake Total 920 / 1280 360 / 360 Output Total 2450 / 2850 950 / 950 Balance -1530 / -1570 -590 / -590 Lab / Micro Data Result Diagrams: 02/17/22 06:18 02/17/22 06:18 Labs: Laboratory Results - last 24 hr 02/17/22 06:18: WBC 6.6, RBC 3.43 L, Hgb 9.9 L, Hct 31.2 L, MCV 91.0, MCH 28.9, MCHC 31.7 L, RDW Std Deviation 53.9 H, RDW Coeff of Cookie 16.5 H, Plt Count 82 L, MPV 11.7, Immature Gran % (Auto) 0.300, Neut % (Auto) 68.5, Lymph % (Auto) 19.7, [place] % (Auto) 9.8, Eos % (Auto) 1.4, Baso % (Auto) 0.3, Absolute Neuts (auto) 4.5, Absolute Lymphs (auto) 1.29, Nucleated RBC % 0.3 02/17/22 06:18: Sodium 137, Potassium 3.4 L, Chloride 101, Carbon Dioxide 29.0, Anion Gap 7, BUN 40 H, Creatinine 1.00, Estim Creat Clear Calc 37.74, Est GFR (MDRD) Af Amer 69, Est GFR (MDRD) Non-Af 57 L, BUN/Creatinine Ratio 40.1 H, Glucose 109 H, Calcium 8.3 L 02/17/22 06:18: Magnesium 2.5 Radiography Diagnostic Testing: Radiology Impression Echocardiogram 02/16/22 07:41 Interpretation Summary Moderately dilated left ventricle. The estimated ejection fraction is 35 %. There is moderate to severe global hypokinesis of the left ventricle. Stage 2 diastolic dysfunction. Moderate (2+) eccentric mitral valve insufficiency. Pulmonary artery systolic pressure is 25 mmHg. Mild (1+) aortic valve insufficiency. Compared to previous study, the left ventricular systolic function is the same.. Contrast injection was performed. Ordering Physician: Jayshree Ponce Referring Physician: Annetta Branch Performed By: Kvng Paz RCS Physical Exam Const alert, oriented x3 and no apparent distress HEENT head/scalp atraumatic and moist oral mucous membranes Head and Scalp: normocephalic Eyes PERRL, EOMs intact bilaterally and conjunctivae normal Neck no lymphadenopathy, supple and no JVD Resp normal respiratory effort, no retractions and no use of accessory muscles Auscultation: diminished lung sounds Cardio regular rate, regular rhythm and no JVD GI normal to inspection, nondistended, normoactive bowel sounds Extremity Extremity Narrative: Surinder wraps applied to the lower extremities bilaterally. Legs still appear moderately swollen. Skin no rashes or lesions noted Neuro CN's II-XII intact bilaterally Psych affect normal Assessment & Plan Assessment/Plan (1) Chronic combined systolic and diastolic CHF (congestive heart failure): PLAN: Day 2 Discharge planning: Current plan is for patient to discharge to TCU when medically ready. 1) acute on chronic combined systolic and diastolic heart failure Patient currently satting 93% on room air. Echocardiogram obtained on 02/16 demonstrated moderately dilated left ventricle, an EF of 35%, moderate to severe global hypokinesis of the left ventricle and stage II diastolic dysfunction. Same compared to previous study. Will increase Lasix to IV every 8 hours, continue to monitor renal function and supplemental O2 as needed. Continue Entresto and Coreg. 2) elevated liver enzymes Trending downwards likely secondary to congestion. 3) CKD stage IIIb Creatinine currently 1.00, at baseline. 4) chronic normocytic anemia Stable, hemoglobin is currently 9.9. 5) HTN Stable, continue Entresto, Coreg and Lasix. 6) hyperlipidemia Continue statin. 7) hypothyroidism Continue Synthroid. 8) GERD Continue PPI. 9) gout Continue allopurinol. 10) weakness/debility Discharge to TCU pending acceptance and will medically ready. DVT prophylaxis - Heparin Patient seen by Jose Frederick PA-C, under the supervision of Dr. Ponce. Time spent on patient care: 9 minutes. Documented by User: Dr. Jayshree Ponce DO 02/17/22 12:07 Subjective Subjective This patient was seen in conjunction with NITHIN Reece. The following is representation of independent history and physical examination. Please see below for addendum the above. Patient reports that she has noticed a reduction in the amount of swelling however she still states that she feels somewhat swollen. She does indicate that she is urinating a lot. She is agreeable to the discharge to TCU. Weight is down 1.1 kg since admission. Objective Data Lab / Micro Data Result Diagrams: 02/17/22 06:18 02/17/22 06:18 Physical Exam Const alert, oriented x3, no apparent distress and well nourished Constitutional Narrative: Very pleasant elderly obese white female sitting up in a chair at the bedside, appears comfortable nontoxic, no signs of shortness of breath Orientation / Consciousness: awake, oriented to person, oriented to place and oriented to time Exam Limitations: no limitations Nutritional Appearance: obese HEENT normocephalic, head/scalp atraumatic and moist oral mucous membranes HEENT Narrative: Mallampati is 3, no thrush Head and Scalp: normocephalic Resp normal respiratory effort, no retractions, no use of accessory muscles and clear to auscultation bilaterally Auscultation: diminished lung sounds; Negative for crackles, rales, rhonchi or wheezes Cardio regular rate, regular rhythm, S1 normal heart sound, S2 normal heart sound, no rub, no gallops, no clicks and no JVD Cardio Narrative: 3 out of 6 systolic murmur noted to be most pronounced at the left lower sternal border Peripheral Pulses: pulses 2+ throughout GI normal to inspection, nondistended, normoactive bowel sounds, soft to palpation, non-tender and non-distended GI Narrative: Pitting in the subcutaneous tissues of the abdomen Extremity normal to inspection Extremity Narrative: Surinder wraps applied to the lower extremities bilaterally. Legs still appear moderately swollen., Reduced pitting edema in bilateral upper extremities with tendons in the hands being more visible, cap refill is 2+, pedal pulses are difficult to palpate secondary to edema General Extremity: edema bilateral lower extremity (+2 pitting up to upper thighs. Generalized swelling as well. ) Skin Lesions: no lesions Rashes: no rashes Trauma: no lacerations or abrasions Neuro oriented x3, CN's II-XII intact bilaterally, moves all extremities, no focal motor deficits, no sensory deficits noted and deep tendon reflexes 2+ bilaterally Sensorium / Orientation: awake and alert Speech: speech normal Psych mental status grossly normal and affect normal Assessment & Plan Assessment/Plan (1) Debility: (2) Acute on chronic combined systolic and diastolic heart failure: PLAN: Assessment: Acute on chronic combined systolic and diastolic heart failure with right-sided heart failure component Falls Generalized debility Transaminitis secondary to passive congestion CKD stage IIIb Chronic normocytic anemia Hypertension Hyperlipidemia Hypothyroidism GERD History of recurrent left breast cancer GERD Obesity History of gout Suspected JOVITA Plan: -Continue aggressive diuresis and increase to 3 times daily Lasix dosing -Continue strict I's and O's -Can take fluid restriction to 1500 cc a day -Weight is down 1.1 kg patient has diuresed over 2 L -Continue low-sodium diet -Add metolazone 5 mg daily -Renal function is actually improving with diuresis leading me to believe that this is likely cardiorenal syndrome -Echocardiogram was done today and compared to her previous echocardiogram done 6 months ago--> overall shows significant stability -Echocardiogram done 02/16/2022 demonstrated an EF of 35% with moderate to severe global left ventricular hypokinesis, stage II diastolic dysfunction, moderate eccentric mitral valve insufficiency, pulmonary arterial pressure of 25 mmHg and 1+ aortic valve insufficiency -Palliative care has evaluated the patient and will follow up after discharge to home -Discharge likely in the next 24 hours to TCU pre-CERT pending -Recommend outpatient polysomnography as patient does have daytime fatigue and this may help with this as well as help with her heart failure issues Charges/Coding Visit Charges Inpatient E&M: 34061 Subs Hosp L2
[2022-02-17] MEDS: Furosemide 40 MG/4 ML Vial IV ×2 (14:37→21:30)
[2022-02-17] MEDS: metOLazone 5 MG Tablet PO (14:37)
--- NOTE | 2022-02-17 16:08 | CASEMGMT ---
Social Work SW spoke with Danni in TCU. Pt precert with insurance for TCU was denied. Physician updated. SW met with pt and spouse and informed of denial. Pt and spouse disappointed. Discharge options discussed including home with home health, home with outpatient therapy and private pay at SNF. Pt and spouse choosing home with home health. SW provided list of Home health providers including quality and resource use data and consistent with patient's preferred geographic region, medical needs and insurance network. Pt choosing [facility]. RNCM updated. SUZY Coleman
[2022-02-17] MEDS: Atorvastatin Calcium 20 MG Tablet PO (21:30)
[2022-02-17] MEDS: 0.9% Saline Lock 10 ML Syringe IV (21:31)
[2022-02-17] MEDS: Loperamide 2 MG Capsule PO (22:18)
[2022-02-18] VITALS (10 sets, daily range): BP systolic 102–113; BP diastolic 50–58; PULSE 77–90; RESP 18; TEMP 36.6–36.8; O2SAT 94–97
--- NOTE | 2022-02-18 00:54 | PCM.PN.BLA ---
Progress Note Nurse reports that patient is having multiple loose stools that did not smell like C. difficile. Nurse requesting Imodium for patient. Imodium ordered. Later nurse reported that patient's stool has malodorous smell. Will stop Imodium. C. difficile test ordered. Metamucil ordered.
[2022-02-18] MEDS: Psyllium 1 PACKET PO ×2 (01:08→22:09)
[2022-02-18] MEDS: Furosemide 40 MG/4 ML Vial IV ×3 (05:12→22:09)
[2022-02-18] MEDS: 0.9% Saline Lock 10 ML Syringe IV ×3 (05:12→22:20)
[2022-02-18 07:21] LABS: Absolute Lymphocyte Count 0.56 X10^3/uL (0.83-4.51); Absolute Neutrophil Count 5.7 X10^3/uL (2.0-7.7); Basophil# 0.01 X10^3/uL; Basophil% 0.1 % (0-1); Eosinophil# 0.08 X10^3/uL; Eosinophils% 1.2 % (0-5); Hematocrit 35.4 % (37-47); Hemoglobin 11.4 g/dL (12.0-15.0); Lymphocyte # 0.56 X10^3/ul (0.83-4.51); Lymphocyte % 8.4 % (19-41); Mean Corp Hgb Conc 32.2 g/dL (32-36); Mean Corpuscular Hgb 29.1 pg (27.0-32.0); Mean Corpuscular Volume 90.3 fL (81-99); Mean Platelet Vol. 11.4 fl (6.2-12.0); Monocyte# 0.28 X10^3/uL; Monocyte% 4.2 % (0-10); NRBC Flagged by Analyzer 0 % (0-5); Neutrophil # 5.73 X10^3/uL (2.7-7.7); Neutrophil % 85.7 % (47-70); POSITIVE DIFFERENTIAL YES; Platelet Count 120 K/mm3 (150-450); RBC Distribution Width CV 16.9 % (11.6-14.6); RBC Distribution Width SD 54.9 fl (35.1-43.9); Red Blood Count 3.92 M/mm3 (4.2-5.4); White Blood Count 6.7 K/mm3 (4.4-11.0)
[2022-02-18 07:22] LABS: Differential Indicated SCAN CRITERIA MET
[2022-02-18 07:53] LABS: Anion Gap 5 (5-15); BUN 37 mg/dL (7-18); BUN/Creat Ratio 34.9 RATIO (10-20); Calcium,Total 8.8 mg/dL (8.5-10.1); Chloride 102 mmol/L (98-107); Creatinine, Serum 1.06 mg/dL (0.55-1.02); EST Glomerular Filtration Rate 53 mL/min (>60); Est Glom Filt Rate - Afr Amer 64 mL/min (>60); Glucose 135 mg/dL (74-106); Sodium Level 136 mmol/L (136-145)
--- NOTE | 2022-02-18 09:14 | CASEMGMT ---
Addendum entered by Leslie Yoder 02/18/22 16:02: Call from Patrick at [facility] and he states they can accept pt with SOC 02/20/22. Green sheet placed on chart. Judy LOVE CM Addendum entered by Leslie Yoder 02/18/22 15:28: Fax did go thru, this RN CM awaiting call back from [facility]. Judy LOVE CM Addendum entered by Leslie Yoder 02/18/22 14:07: Call back to [facility] intake as fax will still not go thru and provided pt name. Another fax number was provided with instructions to put ATTN: [facility] on cover sheet, . Referral faxed again at this time. CM to follow. Judy LOVE CM Addendum entered by Leslie Yoder 02/18/22 13:47: Message left with Patrick, [facility] liasion, in regards to referral and inability to get fax to go thru. Call to [facility] intake and they state there is no further fax number to use and she states they have been getting calls regarding same. CM to follow. Judy LOVE CM Addendum entered by Leslie Yoder 02/18/22 11:37: [facility] referral faxed for the 3rd time as it keeps erroring. CM to follow. Judy LOVE CM Original Note: Per Maricruz POSADAS, pt would like [facility] for PT/OT at discharge. Referral faxed to [facility]. CM to follow. Judy LOVE CM
[2022-02-18] MEDS: Aspirin E.C. 81 MG Tablet PO (09:20)
[2022-02-18] MEDS: Calcium Carb/Vitamin D 1 TABLET Tablet PO (09:21)
[2022-02-18] MEDS: Allopurinol 300 MG Tablet PO (09:21)
[2022-02-18] MEDS: Pantoprazole Sodium 40 MG Tablet PO (09:21)
[2022-02-18] MEDS: Carvedilol 12.5 MG Tablet PO ×2 (09:21→22:08)
[2022-02-18] MEDS: Potassium Chloride Oral Tablet 20 MEQ 40 MEQ PO (09:21)
[2022-02-18] MEDS: Multivitamins,Therapeutic Tablet 1 TABLET PO (09:21)
[2022-02-18] MEDS: metOLazone 5 MG Tablet PO (09:21)
[2022-02-18] MEDS: SACUBITRIL/VALSARTAN 24/26 MG TABLET 1 EACH PO ×2 (09:21→22:08)
[2022-02-18] MEDS: Empagliflozin 10 MG Tablet PO (09:21)
[2022-02-18] MEDS: Cholecalciferol (Vit D3) 125 MCG CAPSULE (5,000 UNITS) PO (09:21)
[2022-02-18] MEDS: Heparin Injection (Vial) 5,000 UNIT/ML VIAL 5000 UNIT SC ×2 (09:22→22:08)
[2022-02-18] MEDS: Nystatin Powder 15gm Bottle 1 APPLIC TOPICAL ×2 (09:56→22:07)
--- NOTE | 2022-02-18 12:33 | PCM.PN.HOSP ---
Documented by User: Jose WELLER 02/18/22 12:45 Subjective Subjective Patient is a 81-year-old female comfortably resting in a chair, alert and orient x3. Overnight patient began to develop foul-smelling diarrhea, patient has had 3 episodes since. Denies any other infectious symptoms to include fever, chills, nausea or vomiting. Appears weak on my examination. Objective Data Objective Data Vital Signs: Vital Signs Temp Pulse Resp BP Pulse Ox 98.3 F 77 18 112/55 L 94 02/18/22 09:10 02/18/22 09:10 02/18/22 09:10 02/18/22 09:10 02/18/22 09:10 Oxygen Delivery Method Room Air Weight: 205 lb 0.478 oz Body Mass Index (BMI) 36.7 Intake & Output: Intake and Output for Last 24 Hours 02/16/22 02/17/22 02/18/22 23:59 23:59 23:59 Intake Total 920 / 1280 780 / 780 200 / 200 Output Total 2450 / 2850 2500 / 2500 500 / 500 Balance -1530 / -1570 -1720 / -1720 -300 / -300 Lab / Micro Data Result Diagrams: 02/18/22 07:10 02/18/22 07:10 Labs: Laboratory Results - last 24 hr 02/18/22 07:10: WBC 6.7, RBC 3.92 L, Hgb 11.4 L, Hct 35.4 L, MCV 90.3, MCH 29.1, MCHC 32.2, RDW Std Deviation 54.9 H, RDW Coeff of Cookie 16.9 H, Plt Count 120 L, MPV 11.4, Immature Gran % (Auto) 0.400, Neut % (Auto) 85.7 H, Lymph % (Auto) 8.4 L, [place] % (Auto) 4.2, Eos % (Auto) 1.2, Baso % (Auto) 0.1, Absolute Neuts (auto) 5.7, Absolute Lymphs (auto) 0.56 L, Nucleated RBC % 0 02/18/22 07:10: Sodium 136, Potassium 3.0 L, Chloride 102, Carbon Dioxide 29.0, Anion Gap 5, BUN 37 H, Creatinine 1.06 H, Estim Creat Clear Calc 35.60, Est GFR (MDRD) Af Amer 64, Est GFR (MDRD) Non-Af 53 L, BUN/Creatinine Ratio 34.9 H, Glucose 135 H, Calcium 8.8 Micro: Microbiology 02/18/22 04:55 Stool C. difficile DNA Amplification - Final Physical Exam Const alert and oriented x3 HEENT head/scalp atraumatic and moist oral mucous membranes Head and Scalp: normocephalic Eyes PERRL, EOMs intact bilaterally and conjunctivae normal Neck no lymphadenopathy, supple and no JVD Resp normal respiratory effort, no retractions and no use of accessory muscles Cardio regular rate, regular rhythm and no JVD GI normal to inspection, nondistended, normoactive bowel sounds Extremity normal to inspection Skin no rashes or lesions noted Neuro CN's II-XII intact bilaterally Psych affect normal Assessment & Plan Assessment/Plan (1) Chronic combined systolic and diastolic CHF (congestive heart failure): PLAN: Day 3 Discharge planning: TBD, patient originally supposed to go to TCU, but was denied. CM/SW following. 1) acute on chronic combined systolic and diastolic heart failure Patient currently satting 94% on room air. Echocardiogram obtained on 02/16 demonstrated moderately dilated left ventricle, an EF of 35%, moderate to severe global hypokinesis of the left ventricle and stage II diastolic dysfunction. Same compared to previous study. Will increase Lasix to IV every 8 hours, continue to monitor renal function and supplemental O2 as needed. Continue Entresto and Coreg. 3) diarrhea Patient has had 3 episodes of diarrhea overnight leading to the morning. Unclear etiology, C. difficile panel negative. If patient continues to have diarrhea we will draw enteric stool panel. 3) CKD stage IIIb Creatinine currently 1.06, at baseline. 4) chronic normocytic anemia Stable, hemoglobin is currently 9.9. 5) HTN Stable, continue Entresto, Coreg and Lasix. 6) hyperlipidemia Continue statin. 7) hypothyroidism Continue Synthroid. 8) GERD Continue PPI. 9) gout Continue allopurinol. 10) weakness/debility Patient was denied placement to TCU by her insurance, case management social work following to develop a plan. DVT prophylaxis - Heparin Patient seen by Jose Frederick PA-C, under the supervision of Dr. Aguirre. Time spent on patient care: 9 minutes. Documented by User: Dr. Myles Aguirre MD 02/18/22 16:37 Objective Data Lab / Micro Data Result Diagrams: 02/18/22 07:10 02/18/22 07:10 Charges/Coding Addendum Addendum: Dr. Aguirre: I personally reviewed the chart and examined the patient, and agree with the above findings. 81-year-old female presents to the hospital with weakness and worsening lower extremity edema secondary to combined systolic and diastolic CHF exacerbation. We had planned to send her to the transitional care unit however her insurance declined for her to get therapy therefore we will continue to evaluate and try to set up home health care with home physical therapy as best we can. Continue with her current medications, and monitor her renal function. She did develop some diarrhea overnight her C. difficile is negative. We will get palliative care set up. She is down about 4 pounds and 3 L. We will continue to monitor renal function as well as electrolytes. Clinical time spent in all aspects of patient care: 17 minutes Visit Charges Inpatient E&M: 24462 Subs Hosp L2
[2022-02-18 13:20] LABS: Magnesium 2.5 mg/dL (1.6-2.6); Phosphorus 2.7 mg/dL (2.5-4.9)
[2022-02-18] MEDS: Acetaminophen 325 MG Tablet 650 MG PO ×2 (13:58→22:28)
[2022-02-18] MEDS: Loperamide 2 MG Capsule PO ×2 (15:34→22:28)
[2022-02-18] MEDS: Menthol/Lanolin/Calamine/Znox 113 GM Tube 1 APPLIC TOPICAL (22:07)
[2022-02-18] MEDS: Atorvastatin Calcium 20 MG Tablet PO (22:08)
[2022-02-19] VITALS (12 sets, daily range): BP systolic 84–124; BP diastolic 38–70; PULSE 60–86; RESP 16; TEMP 36.3–36.8; O2SAT 93–98
[2022-02-19] MEDS: 0.9% Saline Lock 10 ML Syringe IV ×2 (06:31→09:17)
[2022-02-19 07:42] LABS: Anion Gap 5 (5-15); BUN 40 mg/dL (7-18); BUN/Creat Ratio 40.2 RATIO (10-20); Calcium,Total 8.7 mg/dL (8.5-10.1); Chloride 99 mmol/L (98-107); EST Glomerular Filtration Rate 57 mL/min (>60); Est Glom Filt Rate - Afr Amer 69 mL/min (>60); Estimated Creatinine Clearance 37.74 ml/min; Glucose 94 mg/dL (74-106); Potassium 2.7 mmol/L (3.5-5.1); Sodium Level 137 mmol/L (136-145)
--- NOTE | 2022-02-19 07:52 | NURSING ---
texted on critical k+ level this am.
[2022-02-19] MEDS: Cholecalciferol (Vit D3) 125 MCG CAPSULE (5,000 UNITS) PO (09:14)
[2022-02-19] MEDS: Carvedilol 12.5 MG Tablet PO (09:14)
[2022-02-19] MEDS: Pantoprazole Sodium 40 MG Tablet PO (09:14)
[2022-02-19] MEDS: Calcium Carb/Vitamin D 1 TABLET Tablet PO (09:14)
[2022-02-19] MEDS: Psyllium 1 PACKET PO (09:15)
[2022-02-19] MEDS: Empagliflozin 10 MG Tablet PO (09:15)
[2022-02-19] MEDS: Allopurinol 300 MG Tablet PO (09:15)
[2022-02-19] MEDS: SACUBITRIL/VALSARTAN 24/26 MG TABLET 1 EACH PO (09:16)
[2022-02-19] MEDS: Aspirin E.C. 81 MG Tablet PO (09:16)
[2022-02-19] MEDS: Menthol/Lanolin/Calamine/Znox 113 GM Tube 1 APPLIC TOPICAL (09:16)
[2022-02-19] MEDS: Heparin Injection (Vial) 5,000 UNIT/ML VIAL 5000 UNIT SC (09:16)
[2022-02-19] MEDS: Nystatin Powder 15gm Bottle 1 APPLIC TOPICAL (09:17)
[2022-02-19] MEDS: Multivitamins,Therapeutic Tablet 1 TABLET PO (09:17)
[2022-02-19] MEDS: Potassium Chloride 10mEq/100mL 10 MEQ/100 ML IV.SOLN. 100 MEQ IV BOLUS ×2 (09:18→11:35)
[2022-02-19] MEDS: 0.9% Normal Saline 1,000 ML 999 ML IV (11:00)
[2022-02-19] MEDS: Potassium Chloride 10mEq/100mL 10 MEQ/100 ML IV.SOLN. 75 MEQ IV BOLUS ×2 (12:53→14:30)
[2022-02-19] MEDS: Loperamide 2 MG Capsule PO (13:37)
[2022-02-19 16:05] LABS: Anion Gap 5 (5-15); BUN 35 mg/dL (7-18); Calcium,Total 8.3 mg/dL (8.5-10.1); Chloride 102 mmol/L (98-107); Creatinine, Serum 1.03 mg/dL (0.55-1.02); EST Glomerular Filtration Rate 55 mL/min (>60); Est Glom Filt Rate - Afr Amer 66 mL/min (>60); Estimated Creatinine Clearance 36.64 ml/min; Glucose 117 mg/dL (74-106); Potassium 3.8 mmol/L (3.5-5.1); Sodium Level 137 mmol/L (136-145)
--- NOTE | 2022-02-19 16:14 | DS.PCM_ITS ---
Documented by User: Jose WELLER 02/19/22 16:49 Providers Date of Admission: 02/15/22 Date of Discharge: 02/19/22 Primary Care Physician: Dr. Annetta Branch MD Reason For Visit: ACUTE EXACERBATION OF HEART FAILURE Diagnosis Discharge Diagnosis (1) Chronic combined systolic and diastolic CHF (congestive heart failure): Status: Chronic Code(s): I50.42 - Chronic combined systolic (congestive) and diastolic (congestive) heart failure Medications at Discharge Home Medications calcium carbonate-vitamin D3 1 each PO DAILY 08/08/14 aspirin 81 mg PO DAILY 05/24/16 multivitamin 1 tablet PO DAILY 01/19/21 carvedilol [Coreg] 12.5 mg PO BID 10/17/21 omeprazole 40 mg capsule,delayed release 40 mg PO DAILY #90 cap 11/26/21 allopurinol 300 mg tablet 300 mg PO DAILY #90 tab 01/06/22 simvastatin 40 mg tablet 40 mg PO QPM #90 tab 01/12/22 levothyroxine 112 mcg tablet 112 mcg PO DAILY tab 01/14/22 Entresto 1 tab PO BID 02/15/22 Farxiga 5 mg PO DAILY 02/15/22 cholecalciferol (vitamin D3) [Vitamin D3] 125 mcg PO DAILY 02/15/22 furosemide 40 mg PO DAILY #180 tab 02/19/22 metolazone 5 mg PO MoWeFr@1000 #15 tab 02/19/22 Hospital Course Procedures 2-D Echocardiogram and Transthoracic echo Summary of Care Provided Minutes Spent on Discharge: 20 Hospital Course: Patient is a 81-year-old female who was admitted to [facility] on 02/15/2022 for evaluation and management of acute on chronic CHF exacerbation. Hospital course and management as below. 1) acute on chronic combined systolic and diastolic heart failure Patient currently satting 94% on room air. Echocardiogram obtained on 02/16 demo nstrated moderately dilated left ventricle, an EF of 35%, moderate to severe global hypokinesis of the left ventricle and stage II diastolic dysfunction. Same compared to previous study. Patient's home Lasix dose was decreased to 40 mg daily from twice daily, metolazone was increased to 5 mg on a MWF schedule, home Coreg and Entresto continued. 3) diarrhea Enteric stool panel positive for norovirus. Patient diarrhea controlled on Imodium, advised patient to sisal picker [id number] and use as needed. 3) CKD stage IIIb Creatinine currently 1.06, at baseline. 4) chronic normocytic anemia Stable, hemoglobin is currently 9.9. 5) HTN Stable, continue Entresto, Coreg and Lasix. 6) hyperlipidemia Continue statin. 7) hypothyroidism Continue Synthroid. 8) GERD Continue PPI. 9) gout Continue allopurinol. 10) weakness/debility Home health care established for patient. Patient seen by Jose Frederick PA-C, under the supervision of Dr. Aguirre. Time spent on patient care: 20 minutes. Physical Exam Const alert, oriented x3 and no apparent distress HEENT normocephalic, head/scalp atraumatic and hearing grossly normal bilaterally Eyes PERRL, EOMs intact bilaterally and conjunctivae normal Neck no lymphadenopathy, supple and no JVD Resp normal respiratory effort, no retractions and no use of accessory muscles Cardio regular rate, regular rhythm and no JVD GI normal to inspection, nondistended, normoactive bowel sounds Extremity normal to inspection Skin no rashes or lesions noted Neuro CN's II-XII intact bilaterally Psych affect normal Weight / BMI Weight Weight: 184 lb 15.485 oz Body Mass Index (BMI) 36.7 ABG / Lab / Microbiology Data Result Diagrams: 02/18/22 07:10 02/19/22 15:46 Laboratory: Laboratory Results - last 24 hr 02/19/22 06:48: Sodium 137, Potassium 2.7 L*, Chloride 99, Carbon Dioxide 33.0 H , Anion Gap 5, BUN 40 H, Creatinine 1.00, Estim Creat Clear Calc 37.74, Est GFR (MDRD) Af Amer 69, Est GFR (MDRD) Non-Af 57 L, BUN/Creatinine Ratio 40.2 H, Glucose 94, Calcium 8.7 02/19/22 15:46: Sodium 137, Potassium 3.8, Chloride 102, Carbon Dioxide 30.0, Anion Gap 5, BUN 35 H, Creatinine 1.03 H, Estim Creat Clear Calc 36.64, Est GFR (MDRD) Af Amer 66, Est GFR (MDRD) Non-Af 55 L, BUN/Creatinine Ratio 34.0 H, Glucose 117 H, Calcium 8.3 L Microbiology: Microbiology 02/18/22 15:18 Stool Enteric Bacteriology - Final Norovirus 02/18/22 04:55 Stool C. difficile DNA Amplification - Final Meaningful Use Info Meaningful Use Diagnoses (Choose all that apply): CHF CHF ALICIA/ARB ordered at discharge?: Yes Documented LVEF (%): 35 Discharge Plan Admission Admit Date/Time: 02/15/22 23:32 Primary Reason for Your Visit: Shortness of breath Attending Provider: Myles Aguirre Primary Care Provider: Annetta Branch Discharge Orders/Prescriptions Prescriptions: New metolazone 5 mg Tablet 5 mg PO MoWeFr@1000 Qty: 15 RF: 0 Continued multivitamin Tablet 1 tablet PO DAILY RF: 0 calcium carbonate-vitamin D3 1 EACH tablet 1 each PO DAILY RF: 0 aspirin 81 MG tablet,delayed release (DR/EC) 81 mg PO DAILY RF: 0 carvedilol [Coreg] 12.5 mg tablet 12.5 mg PO BID RF: 0 levothyroxine 112 mcg tablet 112 mcg PO DAILY RF: 0 cholecalciferol (vitamin D3) [Vitamin D3] 125 mcg (5,000 unit) Tablet 125 mcg PO DAILY RF: 0 Entresto 24-26 mg tablet 1 tab PO BID RF: 0 Farxiga 5 mg tablet 5 mg PO DAILY RF: 0 omeprazole 40 mg capsule,delayed release(DR/EC) 40 mg PO DAILY Qty: 90 RF: 3 allopurinol 300 mg tablet 300 mg PO DAILY Qty: 90 RF: 1 simvastatin 40 mg tablet 40 mg PO QPM Qty: 90 RF: 3 Changed furosemide 40 mg tablet 40 mg PO DAILY Qty: 180 RF: 3 Discontinued metolazone 2.5 mg tablet 2.5 mg PO .PRN PRN (Reason: Edema) RF: 0 Referrals / Follow Up: Annetta Branch MD [Primary Care Provider] - Disposition Disposition (needs filled in before D/C Order can be placed): Home Health Service Documented by User: Dr. Myles Aguirre MD 02/19/22 16:58 Providers Date of Admission: 02/15/22 Reason For Visit: ACUTE EXACERBATION OF HEART FAILURE Medications at Discharge Home Medications calcium carbonate-vitamin D3 1 each PO DAILY 08/08/14 aspirin 81 mg PO DAILY 05/24/16 multivitamin 1 tablet PO DAILY 01/19/21 carvedilol [Coreg] 12.5 mg PO BID 10/17/21 omeprazole 40 mg capsule,delayed release 40 mg PO DAILY #90 cap 11/26/21 allopurinol 300 mg tablet 300 mg PO DAILY #90 tab 01/06/22 simvastatin 40 mg tablet 40 mg PO QPM #90 tab 01/12/22 levothyroxine 112 mcg tablet 112 mcg PO DAILY tab 01/14/22 Entresto 1 tab PO BID 02/15/22 Farxiga 5 mg PO DAILY 02/15/22 cholecalciferol (vitamin D3) [Vitamin D3] 125 mcg PO DAILY 02/15/22 furosemide 40 mg PO DAILY #180 tab 02/19/22 metolazone 5 mg PO MoWeFr@1000 #15 tab 02/19/22 ABG / Lab / Microbiology Data Result Diagrams: 02/18/22 07:10 02/19/22 15:46 Discharge Plan Admission Admit Date/Time: 02/15/22 23:32 Primary Reason for Your Visit: Shortness of breath Attending Provider: Myles Aguirre Primary Care Provider: Annetta Branch Discharge Orders/Prescriptions Prescriptions: New metolazone 5 mg Tablet 5 mg PO MoWeFr@1000 Qty: 15 RF: 0 Continued multivitamin Tablet 1 tablet PO DAILY RF: 0 calcium carbonate-vitamin D3 1 EACH tablet 1 each PO DAILY RF: 0 aspirin 81 MG tablet,delayed release (DR/EC) 81 mg PO DAILY RF: 0 carvedilol [Coreg] 12.5 mg tablet 12.5 mg PO BID RF: 0 levothyroxine 112 mcg tablet 112 mcg PO DAILY RF: 0 cholecalciferol (vitamin D3) [Vitamin D3] 125 mcg (5,000 unit) Tablet 125 mcg PO DAILY RF: 0 Entresto 24-26 mg tablet 1 tab PO BID RF: 0 Farxiga 5 mg tablet 5 mg PO DAILY RF: 0 omeprazole 40 mg capsule,delayed release(DR/EC) 40 mg PO DAILY Qty: 90 RF: 3 allopurinol 300 mg tablet 300 mg PO DAILY Qty: 90 RF: 1 simvastatin 40 mg tablet 40 mg PO QPM Qty: 90 RF: 3 Changed furosemide 40 mg tablet 40 mg PO DAILY Qty: 180 RF: 3 Discontinued metolazone 2.5 mg tablet 2.5 mg PO .PRN PRN (Reason: Edema) RF: 0 Referrals / Follow Up: Annetta Branch MD [Primary Care Provider] - Disposition Disposition (needs filled in before D/C Order can be placed): Home Health Service Charges/Coding Addendum Addendum: Dr. Aguirre: I personally reviewed the chart and examined the patient, and agree with the above findings. 81-year-old female presents to the hospital with weakness and worsening lower extremity edema secondary to combined systolic and diastolic CHF exacerbation. We had planned to send her to the transitional care unit however her insurance declined for her to get therapy therefore we will continue to eval uate and try to set up home health care with home physical therapy as best we can. Continue with her current medications, and monitor her renal function. She did develop some diarrhea overnight her C. difficile is negative. We will get palliative care set up. She is down about 4 pounds and 3 L. We will continue to monitor renal function as well as electrolytes. Clinical time spent in all aspects of patient care: 17 minutes 02/19/2022: Doing well, physical therapy states that she can go home. She was a little hypotensive this morning so it does appear that we have reached the point of adequate diuresis. Her IV Lasix were held and her metolazone was decreased to 3 times a week. Her home oral Lasix was 40 mg twice daily but given the addition of metolazone, will decrease her dosing to daily dosing of her Lasix she will need to follow-up with her PCP as an outpatient to monitor her renal function and her electrolytes. On the day of discharge her potassium was 2.7 and she was given 80 mEq of potassium in a corrected 3.8. She will need to continue follow-up to be placed on potassium supplement. I discussed with her the plan for today and she expressed understanding of the risk and benefits of going home and would like to go home today. Clinical time spent in all aspects of patient care: 30 minutes Visit Charges Inpatient E&M: [id number] Disch Hosp
--- NOTE | 2022-02-19 16:14 | PCM.DC ---
Discharge Instructions Diet Discharge Diet: No restrictions Activity Discharge Activity: Return to Normal Activity Weight Bearing Status: Weight bearing as tolerated Dressing / Incision Call your doctor if you observe: Fever of 101 or Higher, Numbness or Tingling, Shortness of breath, Dizziness, Chest pain, Increased palpitations (irregular heartbeat) and Calf discomfort Follow Up Care Please Follow Up With: Primary care provider When: Within the next two weeks. Test Results: Test results from this visit will be discussed in further detail at your follow-up appointment, if applicable. Discharge Plan Admission Admit Date/Time: 02/15/22 23:32 Primary Reason for Your Visit: Shortness of breath Attending Provider: Myles Aguirre Primary Care Provider: Annetta Branch Discharge Orders/Prescriptions Prescriptions: New metolazone 5 mg Tablet 5 mg PO MoWeFr@1000 Qty: 15 RF: 0 Continued multivitamin Tablet 1 tablet PO DAILY RF: 0 calcium carbonate-vitamin D3 1 EACH tablet 1 each PO DAILY RF: 0 aspirin 81 MG tablet,delayed release (DR/EC) 81 mg PO DAILY RF: 0 carvedilol [Coreg] 12.5 mg tablet 12.5 mg PO BID RF: 0 levothyroxine 112 mcg tablet 112 mcg PO DAILY RF: 0 cholecalciferol (vitamin D3) [Vitamin D3] 125 mcg (5,000 unit) Tablet 125 mcg PO DAILY RF: 0 Entresto 24-26 mg tablet 1 tab PO BID RF: 0 Farxiga 5 mg tablet 5 mg PO DAILY RF: 0 omeprazole 40 mg capsule,delayed release(DR/EC) 40 mg PO DAILY Qty: 90 RF: 3 allopurinol 300 mg tablet 300 mg PO DAILY Qty: 90 RF: 1 simvastatin 40 mg tablet 40 mg PO QPM Qty: 90 RF: 3 Changed furosemide 40 mg tablet 40 mg PO DAILY Qty: 180 RF: 3 Discontinued metolazone 2.5 mg tablet 2.5 mg PO .PRN PRN (Reason: Edema) RF: 0 Referrals / Follow Up: Annetta Branch MD [Primary Care Provider] - Disposition Disposition (needs filled in before D/C Order can be placed): Home Health Service
== END 2022-02-19 17:06 | disposition home health service (06) | DRG 291 ==
LOC: ED 23:37 → PCU 02-16 00:56
PROVIDERS: Nurse Practitioner Family; Physician Assistant; Admitting Provider Hospitalist; Emergency Provider Emergency Medicine; PCP Internal Medicine; Visit Provider Family Medicine
DX: I13.0 Hypertensive heart and chronic kidney disease with heart failure and stage 1 through stage 4 chronic kidney disease, or unspecified chronic kidney disease (principal); I50.43 Acute on chronic combined systolic (congestive) and diastolic (congestive) heart failure; A08.11 Acute gastroenteropathy due to Norwalk agent; I27.20 Pulmonary hypertension, unspecified; I42.0 Dilated cardiomyopathy; J44.9 Chronic obstructive pulmonary disease, unspecified; I27.21 Secondary pulmonary arterial hypertension; N18.32 Chronic kidney disease, stage 3b; D64.9 Anemia, unspecified; E03.9 Hypothyroidism, unspecified; E78.5 Hyperlipidemia, unspecified; M10.9 Gout, unspecified; K21.9 Gastro-esophageal reflux disease without esophagitis; G47.33 Obstructive sleep apnea (adult) (pediatric); I34.0 Nonrheumatic mitral (valve) insufficiency; F41.9 Anxiety disorder, unspecified; I49.3 Ventricular premature depolarization; G89.29 Other chronic pain; Z79.82 Long term (current) use of aspirin; R53.81 Other malaise; E66.9 Obesity, unspecified; Z51.5 Encounter for palliative care; M81.0 Age-related osteoporosis without current pathological fracture; Z85.3 Personal history of malignant neoplasm of breast; Z86.718 Personal history of other venous thrombosis and embolism; F32.A Depression, unspecified; Z79.899 Other long term (current) drug therapy; Z95.810 Presence of automatic (implantable) cardiac defibrillator; R74.01 Elevation of levels of liver transaminase levels; R01.1 Cardiac murmur, unspecified; R29.6 Repeated falls; Z68.36 Body mass index [BMI] 36.0-36.9, adult
CPT/HCPCS: 36415; 71045; 80048; 80053; 81001; 83735; 83880; 84100; 84484; 85025; 87493; 87506; 93005; 93306; 97110; 97162; 97166; 97530; 97535; 99283; J7030; J7040; Q9957; A4216; C8929; J1940

== ENCOUNTER 2022-03-01 10:54 | Outpatient (CLI) | payer MEDICARE, SELFPAY ==
[2022-03-01 11:13] LABS: Absolute Lymphocyte Count 1.57 X10^3/uL (0.83-4.51); Absolute Neutrophil Count 4.4 X10^3/uL (2.0-7.7); Basophil# 0.05 X10^3/uL; Basophil% 0.7 % (0-1); Eosinophil# 0.09 X10^3/uL; Eosinophils% 1.3 % (0-5); Hemoglobin 12.7 g/dL (12.0-15.0); Lymphocyte # 1.57 X10^3/ul (0.83-4.51); Lymphocyte % 23.2 % (19-41); Mean Corp Hgb Conc 31.8 g/dL (32-36); Mean Corpuscular Hgb 28.6 pg (27.0-32.0); Mean Corpuscular Volume 90.1 fL (81-99); Mean Platelet Vol. 9.3 fl (6.2-12.0); Monocyte# 0.65 X10^3/uL; Monocyte% 9.6 % (0-10); NRBC Flagged by Analyzer 0 % (0-5); Neutrophil # 4.39 X10^3/uL (2.7-7.7); Neutrophil % 64.8 % (47-70); Platelet Count 351 K/mm3 (150-450); RBC Distribution Width CV 17.3 % (11.6-14.6); Red Blood Count 4.44 M/mm3 (4.2-5.4); White Blood Count 6.8 K/mm3 (4.4-11.0)
[2022-03-01 11:28] LABS: ALB/GLOB Ratio 0.9 RATIO (0.9-2.4); AST(SGOT) 36 U/L (15-37); Alanine Aminotransfer ALT/SGPT 42 U/L (13-56); Albumin, Serum 3.3 g/dL (3.2-5.0); Alkaline Phosphatase 150 U/L (45-117); Anion Gap 8 (5-15); BUN 33 mg/dL (7-18); BUN/Creat Ratio 27.3 RATIO (10-20); Calcium,Total 8.7 mg/dL (8.5-10.1); Chloride 94 mmol/L (98-107); Creatinine, Serum 1.21 mg/dL (0.55-1.02); EST Glomerular Filtration Rate 46 mL/min (>60); Est Glom Filt Rate - Afr Amer 55 mL/min (>60); Globulin 3.7 g/dL (2.2-4.2); Glucose 130 mg/dL (74-106); LDH 294 U/L (84-246); Potassium 3.5 mmol/L (3.5-5.1); Sodium Level 131 mmol/L (136-145)
[2022-03-01 19:00] LABS: Xtra Tube EP Lab EXTRA TUBE
== END 2022-03-01 23:59 | disposition home or self-care (01) ==
LOC: LAB 10:55
PROVIDERS: PCP Internal Medicine; Visit Provider Internal Medicine Medical Oncology
DX: Z85.3 Personal history of malignant neoplasm of breast (principal)
CPT/HCPCS: 36415; 80053; 83615; 85025

== ENCOUNTER 2022-03-07 20:31 | Outpatient (CLI) | payer MEDICARE, SELFPAY | END 2022-03-07 23:59 | disposition home or self-care (01) | PROVIDERS: PCP Internal Medicine; Referring Provider Internal Medicine; Visit Provider Internal Medicine | DX: G47.30 Sleep apnea, unspecified (principal) | CPT/HCPCS: 95810 ==

== ENCOUNTER 2022-03-08 11:23 | Outpatient (CLI) | payer MEDICARE, SELFPAY ==
[2022-03-08 12:26] LABS: Erythrocyte Sedimentation Rate 41 mm/hr (0-30)
[2022-03-08 12:29] LABS: Absolute Lymphocyte Count 1.91 X10^3/uL (0.83-4.51); Absolute Neutrophil Count 4.4 X10^3/uL (2.0-7.7); Basophil# 0.04 X10^3/uL; Basophil% 0.5 % (0-1); Eosinophil# 0.16 X10^3/uL; Eosinophils% 2.2 % (0-5); Hematocrit 39.3 % (37-47); Hemoglobin 12.1 g/dL (12.0-15.0); Lymphocyte # 1.91 X10^3/ul (0.83-4.51); Lymphocyte % 25.8 % (19-41); Mean Corp Hgb Conc 30.8 g/dL (32-36); Mean Corpuscular Hgb 28.5 pg (27.0-32.0); Mean Corpuscular Volume 92.7 fL (81-99); Mean Platelet Vol. 9.4 fl (6.2-12.0); Monocyte# 0.85 X10^3/uL; Monocyte% 11.5 % (0-10); NRBC Flagged by Analyzer 0 % (0-5); Neutrophil % 59.5 % (47-70); Platelet Count 256 K/mm3 (150-450); RBC Distribution Width CV 18.1 % (11.6-14.6); RBC Distribution Width SD 60.8 fl (35.1-43.9); Red Blood Count 4.24 M/mm3 (4.2-5.4); White Blood Count 7.4 K/mm3 (4.4-11.0)
[2022-03-08 12:43] LABS: ALB/GLOB Ratio 0.8 RATIO (0.9-2.4); AST(SGOT) 35 U/L (15-37); Alanine Aminotransfer ALT/SGPT 33 U/L (13-56); Albumin, Serum 3.4 g/dL (3.2-5.0); Alkaline Phosphatase 146 U/L (45-117); Anion Gap 7 (5-15); BUN 26 mg/dL (7-18); BUN/Creat Ratio 24.5 RATIO (10-20); CRP 3.85 mg/L (0.0-3.0); Calcium,Total 9.3 mg/dL (8.5-10.1); Chloride 99 mmol/L (98-107); Creatinine, Serum 1.06 mg/dL (0.55-1.02); EST Glomerular Filtration Rate 53 mL/min (>60); Est Glom Filt Rate - Afr Amer 64 mL/min (>60); Glucose 112 mg/dL (74-106); Potassium 3.8 mmol/L (3.5-5.1); Protein, Total 7.4 g/dL (6.4-8.2); Sodium Level 135 mmol/L (136-145)
== END 2022-03-08 23:59 | disposition home or self-care (01) ==
LOC: BIMLAB 11:24 → LAB 15:31
PROVIDERS: Nurse Practitioner Gerontology; PCP Internal Medicine; Referring Provider Internal Medicine; Visit Provider Internal Medicine
DX: I42.8 Other cardiomyopathies (principal); C50.912 Malignant neoplasm of unspecified site of left female breast; M26.69 Other specified disorders of temporomandibular joint
CPT/HCPCS: 36415; 80053; 83880; 85025; 85652; 86140

== ENCOUNTER → 2022-03-16 | Outpatient (CLI) | payer MEDICARE, SELFPAY ==
[2022-03-16 10:59] VITALS: BP 96/57; PULSE 97; RESP 16; TEMP 35.8; O2SAT 99
[2022-03-16] MEDS: Furosemide 40 MG/4 ML Vial 80 MG IV (11:17)
[2022-03-16] MEDS: 0.9% NaCl Peripheral Flush Adult/Peds IV ×2 (11:17→11:30)
== END | disposition home or self-care (01) ==
LOC: MEDOUTP 10:53
PROVIDERS: PCP Internal Medicine; Referring Provider Nurse Practitioner Family; Visit Provider Nurse Practitioner Family
DX: I50.40 Unspecified combined systolic (congestive) and diastolic (congestive) heart failure (principal)
CPT/HCPCS: 96374; A4216; J1940

== ENCOUNTER → 2022-03-17 | Outpatient (CLI) | payer MEDICARE, SELFPAY ==
[2022-03-17 10:28] VITALS: BP 91/48; PULSE 85; RESP 16; TEMP 35.8; O2SAT 98; BMI 31.1
[2022-03-17] MEDS: 0.9% NaCl Peripheral Flush Adult/Peds IV (10:30)
[2022-03-17] MEDS: Furosemide 40 MG/4 ML Vial 80 MG IV (10:34)
[2022-03-17 10:47] VITALS: BP 89/45; PULSE 78; RESP 16; TEMP 36; O2SAT 96
== END | disposition home or self-care (01) ==
LOC: MEDOUTP 10:22
PROVIDERS: PCP Internal Medicine; Referring Provider Nurse Practitioner Family; Visit Provider Nurse Practitioner Family
DX: I50.40 Unspecified combined systolic (congestive) and diastolic (congestive) heart failure (principal)
CPT/HCPCS: 96374; A4216; J1940

== ENCOUNTER 2022-03-18 16:12 | Emergency (ER) | payer MEDICARE, SELFPAY ==
[2022-03-18 16:12] VITALS: BP 104/66; PULSE 104; RESP 21; TEMP 36.6; O2SAT 98; BMI 31.3
--- NOTE | 2022-03-18 16:34 | EKG12_ITS ---
Test Reason : Blood Pressure : / mmHG Vent. Rate : 103 BPM Atrial Rate : 103 BPM P-R Int : 168 ms QRS Dur : 096 ms QT Int : 388 ms P-R-T Axes : 043 -08 116 degrees QTc Int : 508 ms Sinus tachycardia with occasional Premature ventricular complexes and Fusion complexes Left ventricular hypertrophy T wave abnormality, consider lateral ischemia Abnormal ECG Confirmed by NABEEL FLOREZ, HEMANTH ([id number]), publication editor BENNETT WEAVER ([id number]) on 03/21/2022 11:30:03 AM Referred By: CASSY Confirmed By:HEMANTH LEES MD
--- NOTE | 2022-03-18 16:41 | ED.VIS.DYS ---
HPI <NITHIN Lacy - Last Filed: 03/18/22 18:52> History of Present Illness Chief Complaint: Shortness of Breath Narrative Narrative: 81-year-old female with PMH of HTN, HLD, GERD, breast cancer presently in remission since 2012, nonischemic cardiomyopathy, ventricular tachycardia s/p ICD presents with shortness of breath. On 12/31/2021 she was admitted for CHF exacerbation. During that admission echo showed an EF of 35% which was stable and after diuresis she felt better and went home. However, over the last week she felt more dyspneic with exertion and had lower extremity edema. No orthopnea or PND. Dr. Escudero switched her Lasix to bumetanide 1 mg twice a day. They also scheduled outpatient infusions for Lasix IV 80 mg which she had on Monday, , and Monday (this morning). While she was at infusion this morning she told them she felt short of breath and they recommended she come to the ER. She does report intermittent chest pains over the last week lasting seconds to minutes that she attributed to heartburn. She has no pain now. Her legs are still swollen but improved. She denies fever or cough. Denies orthopnea. No history of DVT/PE. [facility] <NITHIN Lacy - Last Filed: 03/18/22 18:52> [facility] Medical History (Updated 03/18/22 @ 18:47 by NITHIN Lacy) Anemia Anxiety Arthritis Atrial enlargement, bilateral Cancer Carpal tunnel syndrome on both sides Chest pain Chronic pain Congestive heart failure Congestive heart failure COPD (chronic obstructive pulmonary disease) Degenerative disc disease, lumbar Depression Dilated cardiomyopathy DVT (deep venous thrombosis) Essential (primary) hypertension Failure of outpatient treatment Frequent falls GERD (gastroesophageal reflux disease) Greater trochanteric bursitis of right hip HLD (hyperlipidemia) Hypertension Hyponatremia Hypotension Hypothyroidism Hypothyroidism, iatrogenic ICD (implantable cardioverter-defibrillator) in place Irregular heart beat IT band syndrome Kidney disease Lightheadedness Low back pain Mitral valve disorder Mouth ulcers Non-ischemic cardiomyopathy Nonrheumatic mitral (valve) insufficiency Obesity On potassium wasting diuretic therapy Osteoporosis Pacemaker Palpitations Paroxysmal supraventricular tachycardia Primary osteoarthritis of right knee Recurrent cancer of left breast Right knee pain Right lumbar radiculitis Secondary pulmonary arterial hypertension Shortness of breath Trigger finger, right middle finger Home Medications calcium carbonate-vitamin D3 1 each PO DAILY 09/19/14 [History Last Taken 10/17/21] aspirin 81 mg PO DAILY 05/24/16 [History Last Taken 10/16/21] multivitamin 1 tablet PO DAILY 01/19/21 [History Last Taken 10/17/21] omeprazole 40 mg capsule,delayed release 40 mg PO DAILY #90 cap 11/26/21 [Rx Last Taken Unknown] allopurinol 300 mg tablet 300 mg PO DAILY #90 tab 01/06/22 [Rx Last Taken Unknown] simvastatin 40 mg tablet 40 mg PO QPM #90 tab 01/12/22 [Rx Last Taken Unknown] Entresto 1 tab PO BID 02/15/22 [History Last Taken Unknown] Farxiga 5 mg PO DAILY 02/15/22 [History Last Taken Unknown] cholecalciferol (vitamin D3) [Vitamin D3] 125 mcg PO DAILY 02/15/22 [History Last Taken Unknown] carvedilol 12.5 mg tablet 6.25 mg PO BID tab 03/08/22 [History Last Taken Unknown] fluticasone propionate 50 mcg/actuation nasal spray,suspension 2 spray INTRANASAL DAILY g 03/08/22 [History Last Taken Unknown] hydrocodone-acetaminophen 5-325mg 5mg-325mg 0.5 tab PO BID PRN tab 03/08/22 [History Last Taken Unknown] levothyroxine 112 mcg tablet 112 mcg PO DAILY #90 tab 03/08/22 [Rx Last Taken Unknown] meloxicam 7.5 mg tablet 7.5 mg PO DAILY tab 03/08/22 [History Last Taken Unknown] trazodone 50 mg tablet 12.5 mg PO QHS tab 03/08/22 [History Last Taken Unknown] bumetanide 1 mg tablet 1 mg PO BID #180 tab 03/18/22 [Rx Last Taken Unknown] metolazone 03/18/22 [History Last Taken Unknown] metolazone 5 mg PO QMWF 03/18/22 [History Last Taken 02/25/22] potassium chloride 20 mEq tablet,extended release(part/cryst) 40 meq PO BID tab 03/18/22 [History Last Taken Unknown] Allergy/AdvReac Type Severity Reaction Status Date / Time cephalexin Allergy Severe Rash Verified 03/18/22 16:14 paclitaxel [From Taxol] Allergy Severe PASS OUT Verified 03/18/22 16:14 amoxicillin AdvReac Severe C-DIFF Verified 03/18/22 16:14 spironolactone AdvReac Intermediate Mouth Verified 03/18/22 16:14 sores and vaginal yeast infections hydrocodone AdvReac Vomiting Verified 03/18/22 16:14 TAPE Allergy Severe RASH, ITCH Uncoded 03/18/22 16:14 Family History (Reviewed 03/08/22 @ 16:16 by Liza Light [employer], [employer]) Mother , age 90 CHF (congestive heart failure) Cancer Breast cancer CAD (coronary artery disease) Brother , age 71 CHF (congestive heart failure) Hx of CABG Brother CAD (coronary artery disease) Daughter Asthma Surgical History (Reviewed 03/08/22 @ 16:16 by Liza Light [employer], [employer]) H/O right and left heart catheterization History of appendectomy History of bilateral knee replacement History of carpal tunnel release of both wrists History of hysterectomy History of implantable cardiac defibrillator (ICD) (08/22/14) History of left heart catheterization History of left knee replacement History of lumpectomy of left breast History of shoulder surgery History of total bilateral knee replacement Hx of cholecystectomy Social History household members: spouse housing: house pets and animals: No Smoking Status: Never smoker alcohol intake: never substance use type: does not use caffeine: No what type of physical activity do you participate in: bicycling and other frequency: 3-4 times per week duration: 15-30 minutes/day seatbelt use: always do you feel safe at home: Yes ROS <NITHIN Lacy - Last Filed: 03/18/22 18:52> ROS ED ROS Narrative Constitutional: Negative for fever, chills, malaise. Eyes: Negative for visual change. ENT: Negative for sore throat, ear pain, rhinorrhea. CVS: Positive for chest pain. Negative for palpitations, syncope. Respiratory: Positive for shortness of breath. Negative for cough, orthopnea. GI: Negative for abdominal pain, nausea, vomiting, diarrhea, constipation, melena, hematochezia. : Negative for dysuria, hematuria or frequency. Neuro: Negative for headache, motor/sensory dysfunction. Skin: Negative for rash, abscess, or wound. Musc: Negative for joint pain, swelling, trauma. Heme: Negative for easy bruising, bleeding, lymphadenopathy. EXAM <NITHIN Lacy - Last Filed: 03/18/22 18:52> Physical Exam Narrative Exam Narrative: CONST: Patient sitting in no acute distress. EYES: Normal inspection. ENT: Normal inspection, moist mucous membranes. NECK: Normal inspection. RESP: No respiratory distress, CTAB. CVS: Regular rate and rhythm, no murmur, no gallop. ABD: Soft and nontender, no guarding or rebound, nondistended. Back: Normal inspection. SKIN: Color normal, no rash, warm, dry, intact. EXTREMITIES: Normal appearance, 1+ pitting edema bilaterally to mid tibia. 1+ pitting edema bilaterally to mid tibia. bilaterally to mid-tibia. 1+ pitting edema NEURO: Oriented x4. PSYCH: Normal affect. Const Vital Signs: 03/18/22 16:12 03/18/22 16:45 03/18/22 16:47 Temperature 98 F Temperature Source Temporal Pulse Rate 104 H 100 Respiratory Rate 21 H 18 Respiratory Effort Normal Respiratory Pattern Normal Blood Pressure 104/66 116/96 H Blood Pressure Mean 78 102 Pulse Ox 98 99 Oxygen Delivery Method Room Air Room Air 03/18/22 17:31 03/18/22 18:56 Temperature Temperature Source Pulse Rate 95 83 Respiratory Rate 18 20 H Respiratory Effort Respiratory Pattern Blood Pressure 89/59 L 124/79 H Blood Pressure Mean 69 94 Pulse Ox 94 98 Oxygen Delivery Method Room Air Room Air <Dr. Alvin Arellano MD - Last Filed: 03/18/22 23:03> Physical Exam Const Vital Signs: 03/18/22 16:12 03/18/22 16:45 03/18/22 16:47 Temperature 98 F Temperature Source Temporal Pulse Rate 104 H 100 Respiratory Rate 21 H 18 Respiratory Effort Normal Respiratory Pattern Normal Blood Pressure 104/66 116/96 H Blood Pressure Mean 78 102 Pulse Ox 98 99 Oxygen Delivery Method Room Air Room Air 03/18/22 17:31 03/18/22 18:56 Temperature Temperature Source Pulse Rate 95 83 Respiratory Rate 18 20 H Respiratory Effort Respiratory Pattern Blood Pressure 89/59 L 124/79 H Blood Pressure Mean 69 94 Pulse Ox 94 98 Oxygen Delivery Method Room Air Room Air MDM <NITHIN Lacy - Last Filed: 03/18/22 18:52> MDM MDM Narrative Medical decision making narrative: Patient presents with ongoing dyspnea on exertion and bilateral leg edema. She has known history of CHF and has been receiving IV Lasix infusions over the last 3 days. She received 80 mg this morning but was sent to the ER for further evaluation of dyspnea. She appears well and nontoxic. BP 104/66, heart rate 104, 98% on room air. Previous vitals show her BP consistently runs in the low 90s?100s. Examination has normal heart sounds. Lungs are clear. She has 1+ pitting edema to both lower legs which she states is improved from previous. Today her cardiac work-up is negative?EKG is sinus rhythm with PVCs but no acute ischemic changes. High-sensitivity troponin is 16 which is lower than it has been previously. CXR is negative no signs of fluid overload. CBC and BMP are unremarkable. Her creatinine of 1.2 is essentially unchanged from her baseline. BNP of 2700 is less then during previous CHF exacerbations. Patient was ambulated and maintained a pulse ox of 93% or above and is in no distress. She had a few low BP readings here but was reevaluated and was 124/79. There is really no acute change regarding her CHF and she did receive IV Lasix 80 mg this morning at the infusion center. I feel she is stable to follow-up with her copy cutter. She was discharged in stable condition. 1. History of CHF 2. Bilateral lower extremity edema Lab Data Labs: Laboratory Results - last 24 hr 03/18/22 03/18/22 03/18/22 17:10 17:10 17:10 WBC 7.1 RBC 4.05 L Hgb 11.8 L Hct 37.1 MCV 91.6 MCH 29.1 MCHC 31.8 L RDW Std Deviation 63.4 H RDW Coeff of Cookie 19.4 H Plt Count 172 MPV 10.7 Immature Gran % (Auto) 0.400 Neut % (Auto) 66.2 Lymph % (Auto) 21.5 [place] % (Auto) 8.1 Eos % (Auto) 3.5 Baso % (Auto) 0.3 Absolute Neuts (auto) 4.7 Absolute Lymphs (auto) 1.52 Nucleated RBC % 0.4 Sodium 135 L Potassium 3.7 Chloride 97 L Carbon Dioxide 32.0 Anion Gap 6 BUN 26 H Creatinine 1.20 H Estim Creat Clear Calc 31.45 Est GFR (MDRD) Af Amer 56 L Est GFR (MDRD) Non-Af 46 L BUN/Creatinine Ratio 21.7 H Glucose 131 H Calcium 8.5 Troponin I High Sens 16 B-Natriuretic Peptide 2707.8 H Radiography Chest X-Ray - ED: 1 View and Read by ED Physician Diagnostic Testing: Clinical Impression(s) from Imaging Studies Chest X-Ray 03/18/22 17:15 IMPRESSION: Persistent cardiomegaly. No acute pulmonary process. Electronically Signed: Jaswinder Figueroa MD at 18:01 EDT , ED attending interpretation shows cardiomegaly, no acute infiltrate or edema. EKG Initial EKG: Comments: Sinus tachycardia with occasional PVCs and fusion complexes, LVH, normal intervals, 103 bpm <Dr. Alvin Arellano MD - Last Filed: 03/18/22 23:03> [facility] Narrative Medical decision making narrative: Patient has a history of CHF. She was managed on Lasix but was still having problems. She was switched to Bumex. She has also been getting outpatient Lasix this week. She is dropping weight a little bit. She mention to the infusion people that she evidently had some shortness of breath. It is now resolved. She did not have chest pain. He stated that if she is short of breath she should be evaluated. Lungs asked on relatively clear. She is laying back probably 20 degrees to 25 degrees off the horizontal and is comfortable. She can get up and walk around without desaturating. Her work-up shows mild anemia which is not the source of her symptoms. Slight bump in her creatinine but it is only mild. BNP is really unchanged from the most recent. It is elevated but she also had levels of almost twice this with recent admissions. She has some cardiomegaly but no sign of acute CHF on x-ray. Patient is asymptomatic. She is asymptomatic with ambulation. She got her Lasix today. We will have her follow-up as an outpatient. She would prefer to go home at this time which is reasonable. It was explained that she will have long-term manage of this. Certainly, if she is having recurrent symptoms, develops pain, fevers she may need to come back. Lab Data Attestation: I reviewed the patient's lab results. Labs: Laboratory Results - last 24 hr 03/18/22 03/18/22 03/18/22 17:10 17:10 17:10 WBC 7.1 RBC 4.05 L Hgb 11.8 L Hct 37.1 MCV 91.6 MCH 29.1 MCHC 31.8 L RDW Std Deviation 63.4 H RDW Coeff of Cookie 19.4 H Plt Count 172 MPV 10.7 Immature Gran % (Auto) 0.400 Neut % (Auto) 66.2 Lymph % (Auto) 21.5 [place] % (Auto) 8.1 Eos % (Auto) 3.5 Baso % (Auto) 0.3 Absolute Neuts (auto) 4.7 Absolute Lymphs (auto) 1.52 Nucleated RBC % 0.4 Sodium 135 L Potassium 3.7 Chloride 97 L Carbon Dioxide 32.0 Anion Gap 6 BUN 26 H Creatinine 1.20 H Estim Creat Clear Calc 31.45 Est GFR (MDRD) Af Amer 56 L Est GFR (MDRD) Non-Af 46 L BUN/Creatinine Ratio 21.7 H Glucose 131 H Calcium 8.5 Troponin I High Sens 16 B-Natriuretic Peptide 2707.8 H Radiography Diagnostic Testing: Clinical Impression(s) from Imaging Studies Chest X-Ray 03/18/22 17:15 IMPRESSION: Persistent cardiomegaly. No acute pulmonary process. Electronically Signed: Jaswinder Figueroa MD at 18:01 EDT Reading Location ID and State: [facility] / [place] Tel , Service support , Discharge Plan Triage Chief Complaint: Shortness of Breath ED Provider: Cherri Shaikh Dx/Rx/DC Orders Clinical Impression: CHF (congestive heart failure) Instructions: Coping with Heart Failure Prescriptions: No Action multivitamin Tablet 1 tablet PO DAILY RF: 0 meloxicam 7.5 mg tablet 7.5 mg PO DAILY RF: 0 trazodone 50 mg tablet 12.5 mg PO QHS RF: 0 hydrocodone-acetaminophen 5-325 mg tablet 0.5 tab PO BID PRN (Reason: Pain) RF: 0 fluticasone propionate 50 mcg/actuation spray,suspension 2 spray intranasal DAILY RF: 0 levothyroxine 112 mcg tablet 112 mcg PO DAILY Qty: 90 RF: 1 calcium carbonate-vitamin D3 1 EACH tablet 1 each PO DAILY RF: 0 aspirin 81 MG tablet,delayed release (DR/EC) 81 mg PO DAILY RF: 0 carvedilol [Coreg] 12.5 mg tablet 6.25 mg PO BID RF: 0 cholecalciferol (vitamin D3) [Vitamin D3] 125 mcg (5,000 unit) Tablet 125 mcg PO DAILY RF: 0 Entresto 24-26 mg tablet 1 tab PO BID RF: 0 Farxiga 5 mg tablet 5 mg PO DAILY RF: 0 metolazone 5 mg tablet 5 mg PO QMWF RF: 0 metolazone 5 mg tablet RF: 0 omeprazole 40 mg capsule,delayed release(DR/EC) 40 mg PO DAILY Qty: 90 RF: 3 allopurinol 300 mg tablet 300 mg PO DAILY Qty: 90 RF: 1 simvastatin 40 mg tablet 40 mg PO QPM Qty: 90 RF: 3 bumetanide 1 mg tablet 1 mg PO BID Qty: 180 RF: 3 potassium chloride 20 mEq tablet,ER particles/crystals 40 meq PO BID RF: 0 Primary Care Provider: Annetta Branch Referrals: Annetta Branch MD [Primary Care Provider] - Activity Restrictions/Additional Instructions: Today your blood work looks similar to previous. There is no sign of fluid overload on her chest x-ray. Your oxygen levels remain normal even with walking. We feel you are safe to go home and follow-up with your copy cutter. Take your medication as prescribed. Disposition Disposition: Home, Self Care Discharge Date/Time: 03/18/22 19:05
[2022-03-18 16:45] VITALS: BP 116/96; PULSE 100; RESP 18; O2SAT 99
--- NOTE | 2022-03-18 17:15 | RAD_ITS ---
STUDY: X-RAY CHEST REASON FOR EXAM: Female, 81 years old. dyspnea TECHNIQUE: 1 view COMPARISON: 02/15/2022 FINDINGS: Left-sided AICD is in place. The cardiac silhouette is enlarged. Costophrenic angles are sharp. Lungs are clear. The trachea is midline. There is no pneumothorax. Surgical clips are noted projecting over the left lower hemithorax. There is multilevel thoracic spondylosis. The humeral heads are high riding, compatible with chronic rotator cuff tears. RAD/Chest 1 View (Portable) IMPRESSION: Persistent cardiomegaly. No acute pulmonary process. Electronically Signed: Jaswinder Figueroa MD at 18:01 EDT ,
[2022-03-18 17:31] VITALS: BP 89/59; PULSE 95; RESP 18; O2SAT 94
[2022-03-18 17:32] LABS: Absolute Lymphocyte Count 1.52 X10^3/uL (0.83-4.51); Absolute Neutrophil Count 4.7 X10^3/uL (2.0-7.7); Basophil# 0.02 X10^3/uL; Basophil% 0.3 % (0-1); Eosinophil# 0.25 X10^3/uL; Eosinophils% 3.5 % (0-5); Hematocrit 37.1 % (37-47); Hemoglobin 11.8 g/dL (12.0-15.0); Lymphocyte # 1.52 X10^3/ul (0.83-4.51); Lymphocyte % 21.5 % (19-41); Mean Corp Hgb Conc 31.8 g/dL (32-36); Mean Corpuscular Hgb 29.1 pg (27.0-32.0); Mean Corpuscular Volume 91.6 fL (81-99); Mean Platelet Vol. 10.7 fl (6.2-12.0); Monocyte# 0.57 X10^3/uL; Monocyte% 8.1 % (0-10); NRBC Flagged by Analyzer 0.4 % (0-5); Neutrophil # 4.67 X10^3/uL (2.7-7.7); Neutrophil % 66.2 % (47-70); Platelet Count 172 K/mm3 (150-450); RBC Distribution Width CV 19.4 % (11.6-14.6); RBC Distribution Width SD 63.4 fl (35.1-43.9); Red Blood Count 4.05 M/mm3 (4.2-5.4); White Blood Count 7.1 K/mm3 (4.4-11.0)
[2022-03-18 17:36] VITALS: O2SAT 95
[2022-03-18 17:43] LABS: Anion Gap 6 (5-15); BUN 26 mg/dL (7-18); BUN/Creat Ratio 21.7 RATIO (10-20); Calcium,Total 8.5 mg/dL (8.5-10.1); Chloride 97 mmol/L (98-107); EST Glomerular Filtration Rate 46 mL/min (>60); Est Glom Filt Rate - Afr Amer 56 mL/min (>60); Estimated Creatinine Clearance 31.45 ml/min; Glucose 131 mg/dL (74-106); Potassium 3.7 mmol/L (3.5-5.1); Sodium Level 135 mmol/L (136-145); Troponin-I HS 16 pg/mL (3.0-54.0)
[2022-03-18 17:56] LABS: BNP,B-Type NATRIURETIC PEPTIDE 2707.8 pg/mL (0-100)
[2022-03-18 18:56] VITALS: BP 124/79; PULSE 83; RESP 20; O2SAT 98
--- NOTE | 2022-03-21 16:06 | CASEMGMT ---
ED follow-up phone call: KATE SAMSON attempted to complete follow-up phone call. No answer, voice message left with return contact information.
== END 2022-03-18 19:05 | disposition home or self-care (01) ==
PROVIDERS: Emergency Provider Physician Assistant; PCP Internal Medicine; Visit Provider Physician Assistant
DX: I11.0 Hypertensive heart disease with heart failure (principal); J44.9 Chronic obstructive pulmonary disease, unspecified; I42.8 Other cardiomyopathies; I27.21 Secondary pulmonary arterial hypertension; I50.9 Heart failure, unspecified; I47.2 Ventricular tachycardia; K21.9 Gastro-esophageal reflux disease without esophagitis; Z85.3 Personal history of malignant neoplasm of breast; Z95.810 Presence of automatic (implantable) cardiac defibrillator; E78.5 Hyperlipidemia, unspecified; F41.9 Anxiety disorder, unspecified; M19.90 Unspecified osteoarthritis, unspecified site; G56.03 Carpal tunnel syndrome, bilateral upper limbs; F32.A Depression, unspecified; Z86.718 Personal history of other venous thrombosis and embolism; E03.9 Hypothyroidism, unspecified; I34.0 Nonrheumatic mitral (valve) insufficiency; E66.9 Obesity, unspecified; M81.0 Age-related osteoporosis without current pathological fracture; M51.36 Other intervertebral disc degeneration, lumbar region; G89.29 Other chronic pain; Z79.82 Long term (current) use of aspirin; Z79.899 Other long term (current) drug therapy; D64.9 Anemia, unspecified; Z68.31 Body mass index [BMI] 31.0-31.9, adult
CPT/HCPCS: 36415; 71045; 80048; 83880; 84484; 85025; 93005; 96374; 99283; A4216; J1940

== ENCOUNTER → 2022-03-18 | Outpatient (CLI) | payer MEDICARE, SELFPAY ==
[2022-03-18 10:30] VITALS: BP 93/53; PULSE 88; RESP 16; TEMP 35.7; O2SAT 100
[2022-03-18] MEDS: Furosemide 40 MG/4 ML Vial 80 MG IV (10:45)
[2022-03-18] MEDS: 0.9% NaCl Peripheral Flush Adult/Peds IV ×2 (10:45→10:54)
[2022-03-18 11:26] LABS: Anion Gap 7 (5-15); BUN 25 mg/dL (7-18); BUN/Creat Ratio 22.1 RATIO (10-20); Calcium,Total 8.4 mg/dL (8.5-10.1); Chloride 101 mmol/L (98-107); Creatinine, Serum 1.13 mg/dL (0.55-1.02); EST Glomerular Filtration Rate 49 mL/min (>60); Est Glom Filt Rate - Afr Amer 60 mL/min (>60); Glucose 128 mg/dL (74-106); Potassium 3.2 mmol/L (3.5-5.1); Sodium Level 135 mmol/L (136-145)
[2022-03-18 11:34] LABS: BNP,B-Type NATRIURETIC PEPTIDE 2646.3 pg/mL (0-100)
== END | disposition home or self-care (01) ==
LOC: MEDOUTP 10:18
PROVIDERS: PCP Internal Medicine; Referring Provider Nurse Practitioner Family; Visit Provider Nurse Practitioner Family
DX: I50.40 Unspecified combined systolic (congestive) and diastolic (congestive) heart failure (principal)
CPT/HCPCS: 96374; 36415; 80048; 83880; A4216; J1940

== ENCOUNTER → 2022-03-30 | Outpatient (CLI) | payer MEDICARE, SELFPAY | END | disposition home or self-care (01) | LOC: SL 20:17 | PROVIDERS: PCP Internal Medicine; Visit Provider Nurse Practitioner Acute Care | DX: G47.30 Sleep apnea, unspecified (principal) | CPT/HCPCS: 95811 ==

== ENCOUNTER → 2022-04-14 | Outpatient (CLI) | payer MEDICARE, SELFPAY | END | disposition home or self-care (01) | LOC: LAB 10:39 | PROVIDERS: PCP Internal Medicine; Referring Provider Internal Medicine Cardiovascular Disease; Visit Provider Internal Medicine Cardiovascular Disease | DX: I51.89 Other ill-defined heart diseases (principal); R06.02 Shortness of breath | CPT/HCPCS: 36415; 80048; 85025 ==

== ENCOUNTER 2022-04-20 10:57 | Day surgery (SDC) | payer MEDICARE, SELFPAY ==
[2022-04-14 11:19] LABS: Absolute Lymphocyte Count 1.55 X10^3/uL (0.83-4.51); Absolute Neutrophil Count 4.7 X10^3/uL (2.0-7.7); Basophil# 0.03 X10^3/uL; Basophil% 0.4 % (0-1); Eosinophils% 2.7 % (0-5); Hematocrit 32.8 % (37-47); Hemoglobin 9.9 g/dL (12.0-15.0); Lymphocyte # 1.55 X10^3/ul (0.83-4.51); Lymphocyte % 21.1 % (19-41); Mean Corp Hgb Conc 30.2 g/dL (32-36); Mean Corpuscular Hgb 28.4 pg (27.0-32.0); Mean Platelet Vol. 10.1 fl (6.2-12.0); Monocyte# 0.82 X10^3/uL; Monocyte% 11.1 % (0-10); NRBC Flagged by Analyzer 0 % (0-5); Neutrophil # 4.73 X10^3/uL (2.7-7.7); Neutrophil % 64.3 % (47-70); POSITIVE MORPHOLOGY YES; Platelet Count 174 K/mm3 (150-450); RBC Distribution Width CV 19.1 % (11.6-14.6); RBC Distribution Width SD 65.3 fl (35.1-43.9); Red Blood Count 3.49 M/mm3 (4.2-5.4); White Blood Count 7.4 K/mm3 (4.4-11.0)
[2022-04-14 11:20] LABS: Differential Indicated SCAN CRITERIA MET
[2022-04-14 11:36] LABS: Differential Comment SCANNED
[2022-04-14 11:37] LABS: Anisocytosis 1+
[2022-04-14 11:41] LABS: Anion Gap 7 (5-15); BUN 38 mg/dL (7-18); BUN/Creat Ratio 26.4 RATIO (10-20); Calcium,Total 8.9 mg/dL (8.5-10.1); Chloride 100 mmol/L (98-107); Creatinine, Serum 1.44 mg/dL (0.55-1.02); EST Glomerular Filtration Rate 37 mL/min (>60); Est Glom Filt Rate - Afr Amer 45 mL/min (>60); Glucose 121 mg/dL (74-106); Potassium 3.6 mmol/L (3.5-5.1); Sodium Level 135 mmol/L (136-145)
[2022-04-19 09:32] VITALS: BMI 33.5
--- NOTE | 2022-04-20 18:19 | CL.D_ITS ---
Patient Name: DESIRAE BRYANT Study Date: 04/20/2022 Performing: Diaz Escudero MD Ht: 63 inches 160 cm : 1940 Wt: 189.8 lbs 86 kg Age: 81 Gender: female BSA: 1.89 PROCEDURE(S) PERFORMED [id number])LHC/COR/LV CLINICAL PROFILE AND INDICATIONS Indications: Cardiomyopathy Heart Failure: NYHA Class: 3, Newly Diagnosed: Yes, Heart Failure Type: Systolic Stress/Imaging Stress/Image Study Performed: No CAD Presentations: Other: sob CONCLUSIONS Non obstructive coronary arteries Cardiomyopathy: Dilated Cardiomyopathy: Dilated idiopathic RECOMMENDATIONS Medical therapy DESCRIPTION OF PROCEDURE The patient arrived to the procedure lab. The risks and benefits of the procedure as well as a full d escription of our services here and current unavailability of surgical backup were fully explained to the patient and/or their significant other prior to the catheterization. The Timeout was completed, verifying the correct patient and procedure. The patient's procedural site was prepped and draped in the usual fashion. Local anesthetic was given subcutaneously to right radial region with Lidocaine 2% . Using a modified Seldinger technique, arterial access was obtained via the right radial artery, a 6 Fr sheath was inserted. Left Coronary Artery selective angiography was performed in multiple views u sing a 5 Fr. 4.0 Hawley catheter. Right Coronary Artery selective angiography was then performed in mu ltiple views using a 5 Fr. 4.0 Hawley catheter. Left Ventriculography was performed in VIRK projection using a 5 Fr. Pigtail catheter. LV to AO pullback pressures were then recorded.The arterial sheath was pulled and a TR Band was applied for hemostasis CORONARY ANGIOGRAPHY DOMINANCE: Right Dominant LEFT HEART ASSESSMENT Left Ventricular Ejection Fraction: by LV Gram 35 % Global Hypokinesis - Moderate Depressed Left Ventricular systolic function LEFT MAIN: Angiographically normal LEFT ANTERIOR DESCENDING ARTERY: No significant disease noted CIRCUMFLEX ARTERY: No significant disease noted RIGHT CORONARY ARTERY: No significant disease noted VALVE FINDINGS: Mitral Valve Insufficiency - Grade 2 COMPLICATIONS No Complications PROCEDURE MEDICATIONS Versed 1 mg IV Fentanyl 50 mcg IV Oxygen: 2 L/min via nasal cannula Heparin given IA 04/20/2022 13:09:30 Lasix 60 mg IV 04/20/2022 13:20:56 Verapamil 2.5mg, Ntg 100mcgs, 3000 units of Heparin given IA 04/20/2022 13:09:30 SUMMARY OF HEMODYNAMIC DATA Time AIR REST ECG 11:43:15 ECG 12:44:45 Art 122/62 (84) 13:02:03 AO 102/68 (83) SA 13:11:51 AO 99/62 (78) 13:17:21 LV 101/14, 20 13:23:22 LV 104/14, 26 13:23:30 LV 102/17, 22 13:24:22 LV 98/16, 17 13:24:30 LVp 100/16, 24 13:24:38 AOp 103/59 (76) 13:24:45 Signed By Diaz Escudero MD On 04/20/2022 18:18:52 Diaz Escudero MD
== END 2022-04-20 15:15 | disposition home or self-care (01) ==
PROVIDERS: PCP Internal Medicine; Visit Provider Internal Medicine Cardiovascular Disease
DX: I42.0 Dilated cardiomyopathy (principal); J44.9 Chronic obstructive pulmonary disease, unspecified; I11.9 Hypertensive heart disease without heart failure; Z95.810 Presence of automatic (implantable) cardiac defibrillator; E78.5 Hyperlipidemia, unspecified; K21.9 Gastro-esophageal reflux disease without esophagitis; E03.9 Hypothyroidism, unspecified; I34.0 Nonrheumatic mitral (valve) insufficiency; M81.0 Age-related osteoporosis without current pathological fracture; Z85.3 Personal history of malignant neoplasm of breast; E66.9 Obesity, unspecified; M17.11 Unilateral primary osteoarthritis, right knee; Z79.82 Long term (current) use of aspirin; Z79.899 Other long term (current) drug therapy; F41.9 Anxiety disorder, unspecified; G56.03 Carpal tunnel syndrome, bilateral upper limbs; F32.A Depression, unspecified; G89.29 Other chronic pain; Z86.718 Personal history of other venous thrombosis and embolism
CPT/HCPCS: 36415; 80048; 85025; 93458; 99152; 99153; J7030; Q9967; C1769; J1940

== ENCOUNTER → 2022-04-21 | Outpatient (CLI) | payer MEDICARE, SELFPAY ==
[2022-04-21] MEDS: 0.9% NaCl Peripheral Flush Adult/Peds IV (10:20)
[2022-04-21] MEDS: Furosemide 40 MG/4 ML Vial 60 MG IV (10:20)
[2022-04-21 10:24] VITALS: BP 84/55; PULSE 73; RESP 16; TEMP 36.2; O2SAT 95; BMI 33.3
[2022-04-21 13:51] VITALS: BP 84/50; PULSE 71; RESP 16; O2SAT 96
== END | disposition home or self-care (01) ==
LOC: MEDOUTP 09:59
PROVIDERS: PCP Internal Medicine; Referring Provider Internal Medicine Cardiovascular Disease; Visit Provider Internal Medicine Cardiovascular Disease
DX: I50.40 Unspecified combined systolic (congestive) and diastolic (congestive) heart failure (principal)
CPT/HCPCS: 96374; A4216; J1940

== ENCOUNTER → 2022-04-22 | Outpatient (CLI) | payer MEDICARE, SELFPAY ==
[2022-04-22 10:37] VITALS: PULSE 77; RESP 16; TEMP 35.5; O2SAT 97
[2022-04-22] MEDS: Furosemide 40 MG/4 ML Vial 60 MG IV (10:44)
== END | disposition home or self-care (01) ==
LOC: MEDOUTP 10:28
PROVIDERS: PCP Internal Medicine; Referring Provider Internal Medicine Cardiovascular Disease; Visit Provider Internal Medicine Cardiovascular Disease
DX: I50.40 Unspecified combined systolic (congestive) and diastolic (congestive) heart failure (principal)
CPT/HCPCS: 96374; J1940

== ENCOUNTER → 2022-04-25 | Outpatient (CLI) | payer MEDICARE, SELFPAY ==
[2022-04-25 11:15] VITALS: BP 88/49; PULSE 82; RESP 16; TEMP 35.8; O2SAT 96; BMI 32.4
[2022-04-25] MEDS: Furosemide 40 MG/4 ML Vial 60 MG IV (11:29)
[2022-04-25] MEDS: 0.9% NaCl Peripheral Flush Adult/Peds IV (11:40)
[2022-04-25 11:45] VITALS: BP 84/45; PULSE 76; RESP 16
== END | disposition home or self-care (01) ==
LOC: MEDOUTP 10:55
PROVIDERS: PCP Internal Medicine; Referring Provider Internal Medicine Cardiovascular Disease; Visit Provider Internal Medicine Cardiovascular Disease
DX: I50.40 Unspecified combined systolic (congestive) and diastolic (congestive) heart failure (principal)
CPT/HCPCS: 96374; A4216; J1940

== ENCOUNTER → 2022-04-26 | Outpatient (CLI) | payer MEDICARE, SELFPAY | END | disposition home or self-care (01) | LOC: SL 11:55 | PROVIDERS: PCP Internal Medicine; Visit Provider Nurse Practitioner Acute Care | DX: Z46.89 Encounter for fitting and adjustment of other specified devices (principal) ==

== ENCOUNTER → 2022-04-26 | Outpatient (CLI) | payer MEDICARE, SELFPAY ==
[2022-04-26 11:40] VITALS: BP 101/59; PULSE 82; RESP 16; TEMP 36.2; O2SAT 100; BMI 32.4
[2022-04-26] MEDS: 0.9% NaCl Peripheral Flush Adult/Peds IV (11:42)
[2022-04-26] MEDS: Furosemide 40 MG/4 ML Vial 60 MG IV (11:42)
[2022-04-26 11:55] VITALS: BP 99/55; PULSE 72
== END | disposition home or self-care (01) ==
LOC: MEDOUTP 11:19
PROVIDERS: PCP Internal Medicine; Referring Provider Internal Medicine Cardiovascular Disease; Visit Provider Internal Medicine Cardiovascular Disease
DX: I50.40 Unspecified combined systolic (congestive) and diastolic (congestive) heart failure (principal)
CPT/HCPCS: 96374; A4216; J1940

== ENCOUNTER → 2022-04-27 | Outpatient (CLI) | payer MEDICARE, SELFPAY ==
[2022-04-27 09:57] VITALS: BP 93/43; PULSE 88; RESP 16; TEMP 35.9; O2SAT 96; BMI 32.1
[2022-04-27] MEDS: Furosemide 40 MG/4 ML Vial 60 MG IV (10:16)
[2022-04-27] MEDS: 0.9% NaCl Peripheral Flush Adult/Peds IV (10:17)
[2022-04-27 10:27] VITALS: BP 89/49; PULSE 86; RESP 16; TEMP 36.1; O2SAT 96
[2022-04-27 10:39] LABS: Anion Gap 7 (5-15); BUN 35 mg/dL (7-18); BUN/Creat Ratio 27.8 RATIO (10-20); Calcium,Total 9.1 mg/dL (8.5-10.1); Chloride 97 mmol/L (98-107); Creatinine, Serum 1.26 mg/dL (0.55-1.02); EST Glomerular Filtration Rate 43 mL/min (>60); Est Glom Filt Rate - Afr Amer 53 mL/min (>60); Estimated Creatinine Clearance 29.95 ml/min; Glucose 125 mg/dL (74-106); Potassium 3.5 mmol/L (3.5-5.1); Sodium Level 135 mmol/L (136-145)
== END | disposition home or self-care (01) ==
LOC: MEDOUTP 09:50
PROVIDERS: PCP Internal Medicine; Referring Provider Internal Medicine Cardiovascular Disease; Visit Provider Internal Medicine Cardiovascular Disease
DX: I50.40 Unspecified combined systolic (congestive) and diastolic (congestive) heart failure (principal)
CPT/HCPCS: 96374; 36415; 80048; A4216; J1940

== ENCOUNTER → 2022-04-28 | Outpatient (CLI) | payer MEDICARE, SELFPAY ==
[2022-04-28 10:17] VITALS: BP 89/57; PULSE 74; RESP 16; TEMP 35.8; O2SAT 96
[2022-04-28] MEDS: 0.9% NaCl Peripheral Flush Adult/Peds IV (10:23)
[2022-04-28] MEDS: Furosemide 40 MG/4 ML Vial 60 MG IV (10:23)
== END | disposition home or self-care (01) ==
LOC: MEDOUTP 09:56
PROVIDERS: PCP Internal Medicine; Referring Provider Internal Medicine Cardiovascular Disease; Visit Provider Internal Medicine Cardiovascular Disease
DX: I50.40 Unspecified combined systolic (congestive) and diastolic (congestive) heart failure (principal)
CPT/HCPCS: 96374; A4216; J1940

== ENCOUNTER → 2022-04-29 | Outpatient (CLI) | payer MEDICARE, SELFPAY ==
[2022-04-29 10:02] VITALS: BP 71/34; PULSE 84; RESP 14; TEMP 36.1; O2SAT 96
--- NOTE | 2022-04-29 10:05 | ONC ---
paged Dr. Escudero to report VS and check if ok to give Lasix.
== END | disposition home or self-care (01) ==
LOC: MEDOUTP 09:52
PROVIDERS: PCP Internal Medicine; Referring Provider Internal Medicine Cardiovascular Disease; Visit Provider Internal Medicine Cardiovascular Disease
DX: I50.40 Unspecified combined systolic (congestive) and diastolic (congestive) heart failure (principal)
CPT/HCPCS: 96374

== ENCOUNTER → 2022-05-18 | Outpatient (CLI) | payer MEDICARE, SELFPAY ==
--- NOTE | 2022-05-18 12:31 | CT_ITS ---
EXAM: CT CHEST WITHOUT INTRAVENOUS CONTRAST CLINICAL INDICATION: Followup CTA jan 11, mediastinal ln enlargement TECHNIQUE: Helically acquired images were obtained of the chest without intravenous contrast. This CT exam was performed using one or more of the following dose reduction techniques: automated exposure control, adjustment of the mA and/or kV according to patient size, and/or use of iterative reconstruction technique. This report was created using [employer] report generation technology. COMPARISON: CT Chest dated 12/31/2021 FINDINGS: LUNGS AND PLEURAL SPACES: Resolution of the bilateral pleural effusions pulmonary edema. No mass. No pneumothorax. HEART: Stable moderate cardiomegaly. No pericardial effusion. No significant coronary artery calcifications. MEDIASTINUM: Prominent mediastinum related to ectatic and tortuous vessels. No mediastinal or hilar adenopathy. Esophagus is unremarkable. No hiatal hernia. THYROID: Unremarkable. No thyroid lesions. BONES/JOINTS: Unremarkable. No suspicious lytic or blastic abnormality. VASCULATURE: No aortic aneurysm. TUBES, LINES AND DEVICES: Atrial and ventricular pacemaker wires are in place. CT/Chest without Contrast IMPRESSION: 1. Interval resolution of the congestive heart failure and pulmonary edema. 2. Stable moderate cardiomegaly. 3. No evidence of mediastinal or hilar mass. Electronically Signed: Gigi Mcmanus MD at 16:58 EDT ,
== END | disposition home or self-care (01) ==
LOC: CT 12:30
PROVIDERS: PCP Internal Medicine; Referring Provider Internal Medicine; Visit Provider Internal Medicine
DX: R59.0 Localized enlarged lymph nodes (principal)
CPT/HCPCS: 71250

== ENCOUNTER → 2022-06-13 | Outpatient (CLI) | payer MEDICARE, SELFPAY ==
[2022-06-13 12:30] LABS: Absolute Neutrophil Count 4.6 X10^3/uL (2.0-7.7); Basophil# 0.04 X10^3/uL; Basophil% 0.5 % (0-1); Eosinophils% 2.4 % (0-5); Hematocrit 41.2 % (37-47); Hemoglobin 13.2 g/dL (12.0-15.0); Lymphocyte % 31.9 % (19-41); Mean Corpuscular Hgb 30.3 pg (27.0-32.0); Mean Corpuscular Volume 94.5 fL (81-99); Mean Platelet Vol. 9.1 fl (6.2-12.0); Monocyte# 0.86 X10^3/uL; Monocyte% 10.2 % (0-10); NRBC Flagged by Analyzer 0 % (0-5); Neutrophil # 4.62 X10^3/uL (2.7-7.7); Neutrophil % 54.5 % (47-70); Platelet Count 235 K/mm3 (150-450); RBC Distribution Width CV 18.2 % (11.6-14.6); RBC Distribution Width SD 62.4 fl (35.1-43.9); Red Blood Count 4.36 M/mm3 (4.2-5.4); White Blood Count 8.5 K/mm3 (4.4-11.0)
[2022-06-13 13:00] LABS: Vitamin B12 359 pg/mL (211-911)
[2022-06-13 13:10] LABS: Erythrocyte Sedimentation Rate 43 mm/hr (0-30)
[2022-06-13 13:46] LABS: ALB/GLOB Ratio 0.8 RATIO (0.9-2.4); AST(SGOT) 24 U/L (15-37); Alanine Aminotransfer ALT/SGPT 22 U/L (13-56); Albumin, Serum 3.4 g/dL (3.2-5.0); Alkaline Phosphatase 149 U/L (45-117); Anion Gap 7 (5-15); BUN 28 mg/dL (7-18); BUN/Creat Ratio 22.6 RATIO (10-20); CRP 5.92 mg/L (0.0-3.0); Calcium,Total 9.6 mg/dL (8.5-10.1); Chloride 104 mmol/L (98-107); Creatinine, Serum 1.24 mg/dL (0.55-1.02); EST Glomerular Filtration Rate 44 mL/min (>60); Est Glom Filt Rate - Afr Amer 54 mL/min (>60); Glucose 109 mg/dL (74-106); Iron 89 ug/dL (50-170); Iron Binding Capacity,Total 369 ug/dL (250-450); PERCENT IRON SATURATION 24.1 % (15.0-55.0); Potassium 4.1 mmol/L (3.5-5.1); Protein, Total 7.4 g/dL (6.4-8.2); Sodium Level 138 mmol/L (136-145)
== END | disposition home or self-care (01) ==
LOC: LAB 12:01
PROVIDERS: PCP Internal Medicine; Visit Provider Internal Medicine
DX: I51.81 Takotsubo syndrome (principal); D64.9 Anemia, unspecified; R53.1 Weakness; M25.519 Pain in unspecified shoulder
CPT/HCPCS: 36415; 80053; 82607; 82746; 83540; 83550; 85025; 85652; 86140

== ENCOUNTER → 2022-07-20 | Outpatient (CLI) | payer MEDICARE, SELFPAY ==
[2022-07-20 16:20] LABS: Free T3 2.7 pg/mL (2.18-3.98); T4 Free Direct 1.09 ng/dL (0.76-1.46); Thyroid Stim Hormone (TSH) 2.18 uIU/mL (0.358-3.74)
== END | disposition home or self-care (01) ==
LOC: LAB 15:07
PROVIDERS: PCP Internal Medicine; Referring Provider Internal Medicine; Visit Provider Internal Medicine
DX: E78.5 Hyperlipidemia, unspecified (principal); E03.9 Hypothyroidism, unspecified
CPT/HCPCS: 36415; 84439; 84443; 84481

== ENCOUNTER → 2022-08-09 | Outpatient (CLI) | payer MEDICARE, SELFPAY ==
[2022-08-09 17:43] LABS: Absolute Lymphocyte Count 3.15 X10^3/uL (0.83-4.51); Absolute Neutrophil Count 5.2 X10^3/uL (2.0-7.7); Basophil# 0.04 X10^3/uL; Basophil% 0.4 % (0-1); Eosinophil# 0.45 X10^3/uL; Eosinophils% 4.6 % (0-5); Hematocrit 36.3 % (37-47); Hemoglobin 11.6 g/dL (12.0-15.0); Lymphocyte # 3.15 X10^3/ul (0.83-4.51); Lymphocyte % 32.2 % (19-41); Mean Corpuscular Volume 100.3 fL (81-99); Monocyte# 0.86 X10^3/uL; Monocyte% 8.8 % (0-10); NRBC Flagged by Analyzer 0 % (0-5); Neutrophil # 5.24 X10^3/uL (2.7-7.7); Neutrophil % 53.7 % (47-70); Platelet Count 269 K/mm3 (150-450); RBC Distribution Width CV 16.8 % (11.6-14.6); RBC Distribution Width SD 61.4 fl (35.1-43.9); Red Blood Count 3.62 M/mm3 (4.2-5.4); White Blood Count 9.8 K/mm3 (4.4-11.0)
[2022-08-09 18:39] LABS: ALB/GLOB Ratio 0.9 RATIO (0.9-2.4); AST(SGOT) 29 U/L (15-37); Alanine Aminotransfer ALT/SGPT 24 U/L (13-56); Albumin, Serum 3.7 g/dL (3.2-5.0); Alkaline Phosphatase 130 U/L (45-117); Anion Gap 11 (5-15); BUN 37 mg/dL (7-18); BUN/Creat Ratio 27.4 RATIO (10-20); Calcium,Total 9.5 mg/dL (8.5-10.1); Chloride 103 mmol/L (98-107); Creatinine, Serum 1.35 mg/dL (0.55-1.02); EST Glomerular Filtration Rate 40 mL/min (>60); Est Glom Filt Rate - Afr Amer 49 mL/min (>60); Globulin 4.1 g/dL (2.2-4.2); Glucose 104 mg/dL (74-106); Potassium 4.4 mmol/L (3.5-5.1); Protein, Total 7.8 g/dL (6.4-8.2); Rheumatoid Factor < 10.0 IU/mL (<15); Sodium Level 137 mmol/L (136-145)
[2022-08-10 08:48] LABS: Hepatitis B Surface Antibody Non-Reactive; Hepatitis B Surface Antigen Non-Reactive (Nonreactive); Hepatitis C Antibody Non-Reactive (Nonreactive)
[2022-08-12 19:22] LABS: CCP IgG Antibodies 6 units (0-19)
== END | disposition home or self-care (01) ==
LOC: MTLAB 15:13
PROVIDERS: PCP Internal Medicine; Referring Provider Internal Medicine Rheumatology; Visit Provider Internal Medicine Rheumatology
DX: L40.59 Other psoriatic arthropathy (principal); Z79.899 Other long term (current) drug therapy; L40.8 Other psoriasis; M17.0 Bilateral primary osteoarthritis of knee; N18.9 Chronic kidney disease, unspecified
CPT/HCPCS: 36415; 80053; 85025; 86200; 86431; 86706; 86803; 87340

== ENCOUNTER 2022-10-17 11:32 | Outpatient (CLI) | payer MEDICARE, SELFPAY ==
[2022-10-17 15:08] LABS: Absolute Lymphocyte Count 3.08 X10^3/uL (0.83-4.51); Absolute Neutrophil Count 4.7 X10^3/uL (2.0-7.7); Basophil# 0.04 X10^3/uL; Basophil% 0.4 % (0-1); Eosinophil# 0.37 X10^3/uL; Hematocrit 38.6 % (37-47); Hemoglobin 12.4 g/dL (12.0-15.0); Lymphocyte # 3.08 X10^3/ul (0.83-4.51); Lymphocyte % 33.4 % (19-41); Mean Corp Hgb Conc 32.1 g/dL (32-36); Mean Corpuscular Hgb 32.5 pg (27.0-32.0); Mean Platelet Vol. 9.1 fl (6.2-12.0); Monocyte# 1.04 X10^3/uL; Monocyte% 11.3 % (0-10); NRBC Flagged by Analyzer 0 % (0-5); Neutrophil # 4.66 X10^3/uL (2.7-7.7); Neutrophil % 50.5 % (47-70); Platelet Count 266 K/mm3 (150-450); RBC Distribution Width SD 47.9 fl (35.1-43.9); Red Blood Count 3.82 M/mm3 (4.2-5.4); White Blood Count 9.2 K/mm3 (4.4-11.0)
[2022-10-17 15:20] LABS: ALB/GLOB Ratio 1.1 RATIO (0.9-2.4); AST(SGOT) 26 U/L (15-37); Alanine Aminotransfer ALT/SGPT 30 U/L (13-56); Albumin, Serum 3.7 g/dL (3.2-5.0); Alkaline Phosphatase 121 U/L (45-117); Anion Gap 7 (5-15); BUN 32 mg/dL (7-18); BUN/Creat Ratio 26.9 RATIO (10-20); Chloride 102 mmol/L (98-107); Creatinine, Serum 1.19 mg/dL (0.55-1.02); EST Glomerular Filtration Rate 46 mL/min (>60); Est Glom Filt Rate - Afr Amer 56 mL/min (>60); Globulin 3.3 g/dL (2.2-4.2); Glucose 90 mg/dL (74-106); Sodium Level 137 mmol/L (136-145)
== END 2022-10-17 23:59 | disposition home or self-care (01) ==
PROVIDERS: PCP Internal Medicine; Referring Provider Internal Medicine Rheumatology; Visit Provider Internal Medicine Rheumatology
DX: L40.59 Other psoriatic arthropathy (principal); Z79.899 Other long term (current) drug therapy; L40.8 Other psoriasis
CPT/HCPCS: 36415; 80053; 85025

== ENCOUNTER 2023-01-03 13:47 | Emergency (ER) | payer MEDICARE, SELFPAY ==
[2023-01-03 13:49] VITALS: BP 113/68; PULSE 125; RESP 22; TEMP 36.1; O2SAT 95; BMI 29.5
--- NOTE | 2023-01-03 14:51 | EDS_ITS ---
HPI HPI - GI History of Present Illness Chief Complaint: Abd Pain Informant: patient and spouse/S.O. Narrative Narrative: Here with sick no other reported diarrhea since 5 AM this morning loose and watery. Nonbloody. No recent antibiotics. No fevers. She ate the same meal with her last evening he is not sick. Had nausea and vomiting x1 at noon with no hematemesis. Has not drank fluids due to concerns of causing diarrhea. Denies any abdominal pain. History of congestive heart failure states did not take her morning medication due to her symptoms. Currently nauseated. Denies any urine symptoms however decreased urine output due to not drinking fluids. [facility] Medical History Anemia Anxiety Arthritis Atrial enlargement, bilateral Carpal tunnel syndrome on both sides Chronic back pain Chronic pain COPD (chronic obstructive pulmonary disease) Degenerative disc disease, lumbar Depression DVT (deep venous thrombosis) Essential (primary) hypertension Frequent falls GERD (gastroesophageal reflux disease) Greater trochanteric bursitis of right hip HLD (hyperlipidemia) Hyponatremia Hypothyroidism IT band syndrome Kidney disease Lightheadedness Low back pain Mitral valve disorder Mouth ulcers Non-ischemic cardiomyopathy Nonrheumatic mitral (valve) insufficiency Obesity On potassium wasting diuretic therapy Osteoporosis Palpitations Paronychia of finger Paroxysmal supraventricular tachycardia Primary osteoarthritis of right knee Recurrent cancer of left breast Right knee pain Right lumbar radiculitis Shortness of breath Trigger finger, right middle finger Home Medications calcium carbonate 600 mg-vitamin D3 10 mcg (400 unit) tablet 1 each PO DAILY supplement 08/08/14 [History Last Taken 10/17/21] aspirin 81 mg tablet,delayed release 81 mg PO DAILY heart health 05/24/16 [History Last Taken 04/20/22] multivitamin 1 tablet PO DAILY supplement 01/19/21 [History Last Taken 10/17/21] simvastatin 40 mg tablet 40 mg PO QPM cholesterol #90 tabs 01/12/22 [Rx Last Taken Unknown] cholecalciferol (vitamin D3) 125 mcg (5,000 unit) tablet (Vitamin D3) 125 mcg PO DAILY 02/15/22 [History Last Taken Unknown] dapagliflozin 10 mg tablet 10 mg PO DAILY chf #90 tabs 04/14/22 [Rx Last Taken Unknown] spironolactone 50 mg tablet 50 mg PO DAILY #90 tabs 04/19/22 [Rx Last Taken Unknown] metoprolol succinate 25 mg tablet,extended release 24 hr 12.5 mg PO DAILY #45 tabs 05/20/22 [Rx Last Taken Unknown] allergy nasal spray NASAL PRN 06/13/22 [History Last Taken Unknown] allergy pills PO PRN 06/13/22 [History Last Taken Unknown] ferrous sulfate 325 mg (65 mg iron) tablet (FeroSul) 325 mg PO DAILY 06/13/22 [History Last Taken Unknown] sacubitril 24 mg-valsartan 26 mg tablet (Entresto) 1 tab PO BID 06/13/22 [History Last Taken Unknown] sacubitril 49 mg-valsartan 51 mg tablet (Entresto) 1 tab PO BID 06/13/22 [History Last Taken Unknown] celecoxib 200 mg capsule (Celebrex) 200 mg PO DAILY #20 caps 06/16/22 [Rx Last Taken Unknown] allopurinol 300 mg tablet 300 mg PO DAILY gout #90 tabs 07/12/22 [Rx Last Taken Unknown] digoxin 125 mcg (0.125 mg) tablet 125 mcg PO .Every Other Day 07/18/22 [History Last Taken Unknown] hydroxyzine HCl 25 mg tablet ea PO 07/18/22 [History Last Taken Unknown] torsemide 20 mg tablet 20 mg PO DAILY 07/18/22 [History Last Taken Unknown] levothyroxine 112 mcg tablet 112 mcg PO DAILY thyroid #90 tabs 09/05/22 [Rx Last Taken Unknown] leflunomide 10 mg tablet ea PO 09/21/22 [History Last Taken Unknown] triamcinolone acetonide 0.1 % topical cream 1 applic topical BID #30 grams 09/21/22 [Rx Last Taken Unknown] omeprazole 40 mg capsule,delayed release 40 mg PO DAILY stomach #90 caps 11/24/22 [Rx Last Taken Unknown] Allergy/AdvReac Type Severity Reaction Status Date / Time adhesive tape [tape] Allergy Severe RASH, Verified 01/03/23 13:50 ITCHING cephalexin Allergy Severe Rash Verified 01/03/23 13:50 paclitaxel [From Taxol] Allergy Severe PASS OUT Verified 01/03/23 13:50 amoxicillin AdvReac Severe C-DIFF Verified 01/03/23 13:50 spironolactone AdvReac Intermediate Mouth Verified 01/03/23 13:50 sores and vaginal yeast infections hydrocodone AdvReac Vomiting Verified 01/03/23 13:50 Family History Mother , age 90 CHF (congestive heart failure) Cancer Breast cancer CAD (coronary artery disease) Brother , age 71 CHF (congestive heart failure) Hx of CABG Brother CAD (coronary artery disease) Daughter Asthma Surgical History H/O right and left heart catheterization (2009) History of appendectomy History of bilateral knee replacement History of carpal tunnel release of both wrists History of hysterectomy History of implantable cardiac defibrillator (ICD) (08/22/14) History of left heart catheterization (04/20/22) History of left knee replacement History of lumpectomy of left breast History of shoulder surgery History of total bilateral knee replacement Hx of cholecystectomy Social History household members: spouse housing: house pets and animals: No Smoking Status: Never smoker alcohol intake: never substance use type: does not use caffeine: No what type of physical activity do you participate in: bicycling and other frequency: 3-4 times per week duration: 15-30 minutes/day seatbelt use: always do you feel safe at home: Yes ROS ROS ED Constitutional Constitutional ED: Denies chills, fever(s) or sweats Eyes Eyes: Denies change in vision ENT ENT ED: Denies dysphagia or sore throat Cardiovascular Cardiovascular: Denies chest pain, leg edema, palpitations or racing heartbeat Respiratory/Chest Respiratory/Chest: Denies cough, dyspnea or dyspnea on exertion Gastrointestinal Gastrointestinal: Reports diarrhea, nausea and vomiting; Denies abdominal pain Genitourinary Genitourinary ED: Denies dysuria, hematuria or urinary frequency Musculoskeletal Musculoskeletal: Denies back pain, extremity pain or neck pain Integumentary Denies rash or wounds Neurologic Neurologic: Denies headache(s), paresthesias or weakness EXAM Physical Exam Const Vital Signs: 01/03/23 13:49 01/03/23 16:07 Temperature 97.0 F L Temperature Source Temporal Pulse Rate 125 H Respiratory Rate 22 H 16 Blood Pressure 113/68 Blood Pressure Mean 83 Pulse Ox 95 Oxygen Delivery Method Room Air Positive well nourished and well developed General Appearance ED: well developed and NAD HEENT Reports dry mucous membranes HEENT Narrative: Mild dry mucosal membranes normocephalic and atraumatic Mouth ED: Yes dry mucous membranes Mouth: dry mucous membranes Eyes PERRL, EOMs intact bilaterally and conjunctivae normal General Eye ED: Yes normal appearance of both eyes Neck no lymphadenopathy and supple General: Negative for tenderness Chest Wall Chest: Negative for tenderness Resp normal respiratory effort and normal air movement Effort and Inspection: symmetric chest movement; Negative for respiratory distress Cardio regular rhythm and no murmurs Rate: tachycardic Peripheral Pulses: pulses 2+ throughout GI normal to inspection, nondistended, normoactive bowel sounds and non-tender GI Narrative: Negative Mckee's or McBurney's tenderness. Palpation: Negative for guarding or rebound tenderness present Back/Spine no CVA tenderness and no thoracic nor lumbar tenderness Extremity normal to inspection General Extremety ED: Negative for edema or tenderness General Extremity: Negative for edema Neuro oriented x3 and no sensory deficits noted Sensorium / Orientation: awake and alert Skin no rashes or lesions noted and no wounds MDM MDM MDM Narrative Medical decision making narrative: Interventions / MDM: Differential diagnosis: Dehydration, DARRICK, gastroenteritis, C. difficile infection Diagnosis considered but do not suspect: Colitis, however no pain My EKG interpretation: N/A Imaging independently reviewed and interpreted by myself: N/A External documents reviewed: N/A Test considered but not ordered:N/A ED course: Patient slight clinical dehydration with tachycardia and dry mucosal membranes. Vomiting diarrhea, nonsurgical abdomen. She is given a creatinine slightly up at 1.6 from 1.2. Potassium is normal. Patient treated with anti- emetics with improvement of symptoms she is able to tolerate oral intake. Stools were obtainable in the ED and sent to the lab which is pending. She had no C. difficile risk factors. She currently tolerating oral fluids. Discussed with patient she is having slight renal insufficiency to hold her diuretic if she continues to have diarrhea as she needs fluids. She will be contacted with stool study results if positive. Return precautions discussed. Otherwise ou tpatient follow-up with her PCP for recheck of labs. All questions were answered. Re-evaluation: stable and improved Disposition discussed with patient/family/significant other: Patient and signifi cant other Case discussed with consulting clinician: N/A Lab Data Attestation: I reviewed the patient's lab results. Labs: Laboratory Results - last 24 hr 01/03/23 01/03/23 14:40 14:40 WBC 11.5 H RBC 4.34 Hgb 13.6 Hct 42.1 MCV 97.0 MCH 31.3 MCHC 32.3 RDW Std Deviation 47.7 H RDW Coeff of Cookie 13.4 Plt Count 262 MPV 9.0 Immature Gran % (Auto) 0.500 Neut % (Auto) 81.7 H Lymph % (Auto) 10.3 L [place] % (Auto) 5.7 Eos % (Auto) 1.5 Baso % (Auto) 0.3 Absolute Neuts (auto) 9.4 H Absolute Lymphs (auto) 1.19 Nucleated RBC % 0 Sodium 137 Potassium 4.7 Chloride 106 Carbon Dioxide 22.0 Anion Gap 9 BUN 41 H Creatinine 1.60 H Estim Creat Clear Calc 23.20 Est GFR (MDRD) Af Amer 40 L Est GFR (MDRD) Non-Af 33 L BUN/Creatinine Ratio 25.6 H Glucose 144 H Calcium 9.4 Discharge Plan Triage Chief Complaint: Abd Pain Other Complaint: Diarrhea ED Provider: Mario Luo Dx/Rx/DC Orders Clinical Impression: Diarrhea, Acute on chronic renal insufficiency, Dehydration Instructions: ED Diarrhea, Unknown Cause, ED Renal Insufficiency Prescriptions: No Action multivitamin Tablet 1 tablet PO DAILY torsemide 20 mg tablet 20 mg PO DAILY digoxin 125 mcg (0.125 mg) tablet 125 mcg PO .Every Other Day hydroxyzine HCl 25 mg tablet PO Label Comments: TAKE 1/2 (ONE-HALF) TABLET BY MOUTH ONCE DAILY NEEDED FOR ANXIETY, SHORTNESS OF BREATH/ITCHING Entresto 49-51 mg tablet 1 tab PO BID Entresto 24-26 mg tablet 1 tab PO BID ferrous sulfate [FeroSul] 325 mg (65 mg iron) tablet 325 mg PO DAILY allergy nasal spray NASAL PRN Rx Instructions: OTC ( unsure of brand) allergy pills PO PRN Rx Instructions: OTC ( pt unsure of brand) leflunomide 10 mg tablet PO Label Comments: TAKE 1 TABLET BY MOUTH ONCE DAILY triamcinolone acetonide 0.1 % cream 1 applic topical BID Qty: 30 1RF calcium carbonate-vitamin D3 1 EACH tablet 1 each PO DAILY Label Comments: SUPPLEMENT aspirin 81 MG tablet,delayed release (DR/EC) 81 mg PO DAILY Label Comments: Takes at bedtime cholecalciferol (vitamin D3) [Vitamin D3] 125 mcg (5,000 unit) Tablet 125 mcg PO DAILY simvastatin 40 mg tablet 40 mg PO QPM Qty: 90 3RF dapagliflozin 10 mg tablet 10 mg PO DAILY Qty: 90 3RF spironolactone 50 mg tablet 50 mg PO DAILY Qty: 90 3RF metoprolol succinate 25 mg tablet extended release 24 hr 12.5 mg PO DAILY Qty: 45 0RF celecoxib [Celebrex] 200 mg capsule 200 mg PO DAILY Qty: 20 0RF allopurinol 300 mg tablet 300 mg PO DAILY Qty: 90 1RF levothyroxine 112 mcg tablet 112 mcg PO DAILY Qty: 90 3RF omeprazole 40 mg capsule,delayed release(/EC) 40 mg PO DAILY Qty: 90 3RF Primary Care Provider: Annetta Branch Referrals: Annetta Branch MD [Primary Care Provider] - Activity Restrictions/Additional Instructions: Stools in the lab and pending. If creatinine 1.6 today previously 1.2. Oral for hydration, hold your water pill if you have persistent diarrhea. You will be contacted for stool positive testing. Follow-up with your doctor for recheck blood work. Return if worsening symptoms. Disposition Disposition: Home, Self Care Discharge Date/Time: 01/03/23 17:06
[2023-01-03 15:02] LABS: Absolute Lymphocyte Count 1.19 X10^3/uL (0.83-4.51); Absolute Neutrophil Count 9.4 X10^3/uL (2.0-7.7); Basophil# 0.04 X10^3/uL; Basophil% 0.3 % (0-1); Eosinophil# 0.17 X10^3/uL; Eosinophils% 1.5 % (0-5); Hematocrit 42.1 % (37-47); Hemoglobin 13.6 g/dL (12.0-15.0); Lymphocyte # 1.19 X10^3/ul (0.83-4.51); Lymphocyte % 10.3 % (19-41); Mean Corp Hgb Conc 32.3 g/dL (32-36); Mean Corpuscular Hgb 31.3 pg (27.0-32.0); Monocyte# 0.66 X10^3/uL; Monocyte% 5.7 % (0-10); NRBC Flagged by Analyzer 0 % (0-5); Neutrophil # 9.42 X10^3/uL (2.7-7.7); Neutrophil % 81.7 % (47-70); Platelet Count 262 K/mm3 (150-450); RBC Distribution Width CV 13.4 % (11.6-14.6); RBC Distribution Width SD 47.7 fl (35.1-43.9); Red Blood Count 4.34 M/mm3 (4.2-5.4); White Blood Count 11.5 K/mm3 (4.4-11.0)
[2023-01-03] MEDS: Ondansetron 4 MG/2 ML Vial IV (15:03)
[2023-01-03 15:15] LABS: Anion Gap 9 (5-15); BUN 41 mg/dL (7-18); BUN/Creat Ratio 25.6 RATIO (10-20); Calcium,Total 9.4 mg/dL (8.5-10.1); Chloride 106 mmol/L (98-107); EST Glomerular Filtration Rate 33 mL/min (>60); Est Glom Filt Rate - Afr Amer 40 mL/min (>60); Glucose 144 mg/dL (74-106); Potassium 4.7 mmol/L (3.5-5.1); Sodium Level 137 mmol/L (136-145)
[2023-01-03 16:07] VITALS: RESP 16
--- NOTE | 2023-01-04 11:40 | ED.RN ---
THIS RN RECEIVED A CALL FROM LAB. REPORTS PT IS POSITIVE FOR NOROVIRUS.
--- NOTE | 2023-01-04 11:49 | ED.RN ---
THIS RN CONSULTED WITH DR. DINH REGARDING PT POSITIVE NOROVIRUS RESULTS. PT CONTACTED AND INFORMED OF POSITIVE NOROVIRUS. INSTRUCTED TO CONTINUE TO FOLLOW D/C INSTRUCTIONS FROM YESTERDAY AND FOLLOW UP WITH PCP OR RETURN TO ED IF SHE DEEMS NECESSARY. EDUCATED NOROVIRUS IS VERY CONTAGIOUS, AND TO BE MINDFUL OF THAT FOR FAMILY EXPOSURE. PT VERBALIZES UNDERSTANDING AND DENIES ANY FURTHER QUESTIONS.
== END 2023-01-03 17:06 | disposition home or self-care (01) ==
PROVIDERS: Emergency Provider Emergency Medicine; PCP Internal Medicine; Visit Provider Emergency Medicine
DX: E86.0 Dehydration (principal); J44.9 Chronic obstructive pulmonary disease, unspecified; I50.9 Heart failure, unspecified; I13.0 Hypertensive heart and chronic kidney disease with heart failure and stage 1 through stage 4 chronic kidney disease, or unspecified chronic kidney disease; E78.5 Hyperlipidemia, unspecified; R19.7 Diarrhea, unspecified; N28.9 Disorder of kidney and ureter, unspecified; Z79.82 Long term (current) use of aspirin; Z79.899 Other long term (current) drug therapy; D64.9 Anemia, unspecified; M19.90 Unspecified osteoarthritis, unspecified site; F41.9 Anxiety disorder, unspecified; E03.9 Hypothyroidism, unspecified; Z95.810 Presence of automatic (implantable) cardiac defibrillator; N18.9 Chronic kidney disease, unspecified
CPT/HCPCS: 80048; 85025; 87493; 87506; 96361; 96374; 99283; J7030; A4216; J2405

== ENCOUNTER → 2023-01-09 | Outpatient (CLI) | payer MEDICARE, SELFPAY ==
[2023-01-09 10:18] LABS: Absolute Lymphocyte Count 3.15 X10^3/uL (0.83-4.51); Absolute Neutrophil Count 5.8 X10^3/uL (2.0-7.7); Basophil# 0.04 X10^3/uL; Basophil% 0.4 % (0-1); Eosinophil# 0.39 X10^3/uL; Eosinophils% 3.9 % (0-5); Hematocrit 41.2 % (37-47); Lymphocyte # 3.15 X10^3/ul (0.83-4.51); Lymphocyte % 31.3 % (19-41); Mean Corp Hgb Conc 31.6 g/dL (32-36); Mean Corpuscular Volume 98.1 fL (81-99); Monocyte# 0.62 X10^3/uL; Monocyte% 6.2 % (0-10); NRBC Flagged by Analyzer 0 % (0-5); Neutrophil # 5.83 X10^3/uL (2.7-7.7); Neutrophil % 57.8 % (47-70); Platelet Count 287 K/mm3 (150-450); RBC Distribution Width CV 13.7 % (11.6-14.6); RBC Distribution Width SD 49.1 fl (35.1-43.9); White Blood Count 10.1 K/mm3 (4.4-11.0)
[2023-01-09 10:49] LABS: ALB/GLOB Ratio 0.9 RATIO (0.9-2.4); AST(SGOT) 27 U/L (15-37); Alanine Aminotransfer ALT/SGPT 28 U/L (13-56); Albumin, Serum 3.5 g/dL (3.2-5.0); Alkaline Phosphatase 144 U/L (45-117); Anion Gap 8 (5-15); BUN 31 mg/dL (7-18); BUN/Creat Ratio 25.6 RATIO (10-20); Calcium,Total 8.9 mg/dL (8.5-10.1); Chloride 105 mmol/L (98-107); Creatinine, Serum 1.21 mg/dL (0.55-1.02); EST Glomerular Filtration Rate 45 mL/min (>60); Est Glom Filt Rate - Afr Amer 55 mL/min (>60); Glucose 114 mg/dL (74-106); Potassium 3.8 mmol/L (3.5-5.1); Protein, Total 7.5 g/dL (6.4-8.2); Sodium Level 136 mmol/L (136-145)
== END | disposition home or self-care (01) ==
LOC: MTLAB 09:16
PROVIDERS: PCP Internal Medicine; Referring Provider Internal Medicine Rheumatology; Visit Provider Internal Medicine Rheumatology
DX: L40.59 Other psoriatic arthropathy (principal); Z79.899 Other long term (current) drug therapy
CPT/HCPCS: 36415; 80053; 85025

== ENCOUNTER → 2023-01-24 | Outpatient (CLI) | payer MEDICARE, SELFPAY | END | disposition home or self-care (01) | PROVIDERS: PCP Internal Medicine; Visit Provider Student in an Organized Health Care Education/Training Program | DX: Z12.31 Encounter for screening mammogram for malignant neoplasm of breast (principal); N95.1 Menopausal and female climacteric states; N39.0 Urinary tract infection, site not specified | CPT/HCPCS: 87086; 87088; 87186 ==

== ENCOUNTER → 2023-02-02 | Outpatient (CLI) | payer MEDICARE, SELFPAY ==
--- NOTE | 2023-02-02 14:49 | BI_ITS ---
MAMMOGRAPHY - BILATERAL SCREENING 3-D TOMOSYNTHESIS REASON FOR EXAM: Female, 82 years old. SCREENING PERTINENT HISTORY: Personal history of breast cancer, with previous left lumpectomy.. TECHNIQUE: 2-D mammograms and 3-D Tomosynthesis of the breast (s) were performed. CAD was performed. COMPARISON: 04/28/2021 FINDINGS: The breast composition is composed of scattered fibroglandular density. Stable architectural distortion in the left breast from previous surgery. No new suspicious mass or nodule. Scattered benign calcifications are seen. No dense spiculated masses or suspicious microcalcifications are identified. There is no skin thickening or retraction. There has been no significant change since the prior study. BI/SCRN MAMM (CAD)W/TEMI BILAT IMPRESSION: No mammographic signs of malignancy. Routine yearly mammograms recommended. ASSESSMENT CATEGORY: BIRADS Category 2: Benign. A letter regarding these results will be sent to the patient by the facility within 30 days. FOLLOW UP RECOMMENDATION: Yearly follow up mammogram recommended. (A) Approximately 10% of breast cancers are not detected by mammography. A normal mammogram should not delay biopsy of a clinically suspicious abnormality. Electronically Signed: Moshe Dye MD at 7:49 EDT ,
--- NOTE | 2023-02-02 14:55 | BD_ITS ---
STUDY: DUAL ENERGY X-RAY ABSORPTIOMETRY / DXA REASON FOR EXAM: Female, 82 years old. [id number] TECHNIQUE: Bone Mineral Density (BMD) measurements of lumbar spine and bilateral hips were obtained. COMPARISON: None. FINDINGS: Lumbar Spine (L1-L4): g/cm2 (1.304) / T-score (2.0) / Z-score (4.8) Findings are suggestive of normal bone density with a low fracture risk. Left Femur Total: g/cm2 (0.946) / T-score (0.0) / Z-score (2.1) Left Femoral Neck: g/cm2 (0.650) / T-score (-1.8) / Z-score (0.5) Right Femur Total: g/cm2 (0.817) / T-score (-1.0) / Z-score (1.1) Right Femoral Neck: g/cm2 (0.653) / T-score (-1.8) / Z-score (0.6) BD/Dexa Bone Density Study IMPRESSION: The patient is considered osteopenic as outlined below according to World Herbie Organization (WHO) criteria with a moderate fracture risk. Reference Information: The T-score is the number of standard deviations above or below the standard which is normal for young adults at their peak bone mineral density. The World Health Organization (WHO) interprets the T-scores as follows: Above -1 Normal bone density Between -1 and -2.5 Osteopenia Equal to / or below -2.5 Osteoporosis As a practical clinical guideline, osteopenia may be graded as follows: Mild -1 through -1.5 Moderate -1.6 through -2.0 Severe -2.1 through -2.4 The Z-score is the number of standard deviations above or below age-matched controls. A Z-score of less than -1.5 would be considered abnormal. References: 1. NIH Osteoporosis and Related Bone Diseases www osteo.org 2. International Society for Clinical Densitometry www iscd.org 3. National Osteoporosis Foundation www nof.org Electronically Signed: Cesar Wing MD at 9:44 EDT ,
== END | disposition home or self-care (01) ==
LOC: OPBD 14:47
PROVIDERS: PCP Internal Medicine; Referring Provider Student in an Organized Health Care Education/Training Program; Visit Provider Student in an Organized Health Care Education/Training Program
DX: Z12.31 Encounter for screening mammogram for malignant neoplasm of breast (principal); N95.9 Unspecified menopausal and perimenopausal disorder; Z85.3 Personal history of malignant neoplasm of breast
CPT/HCPCS: 77063; 77067; 77080

== ENCOUNTER → 2023-02-28 | Outpatient (CLI) | payer MEDICARE, SELFPAY ==
--- NOTE | 2023-02-28 12:17 | RAD_ITS ---
INDICATION: HIP PAIN EXAMINATION/TECHNIQUE: X-RAY - BILATERAL XR Hips Bilateral with Pelvis when performed; 2 Views 5 VIEWS COMPARISON: 10/11/2017 FINDINGS: SOFT TISSUES: No soft tissue swelling or gas. No radiopaque foreign body. . Clips project over the LEFT hemipelvis. BONES/JOINTS: No acute fracture or subluxation.. Normal alignment. Preservation of the joint space.. No sclerotic or destructive changes observed. Moderate degenerative changes involving the lower lumbar spine. Sacrum and sacroiliac joints have normal appearance. RAD/Hips B/L min 2 views w/ Pelvis IMPRESSION: 1. Stable exam. 2. No fracture dislocation or malalignment involving the pelvis and hips. 3. Persistent lumbar spondylosis. Electronically Signed: Morgan Chery MD at 23:42 EDT ,
[2023-02-28 12:51] LABS: Absolute Lymphocyte Count 2.52 X10^3/uL (0.83-4.51); Absolute Neutrophil Count 4.6 X10^3/uL (2.0-7.7); Basophil# 0.04 X10^3/uL; Basophil% 0.5 % (0-1); Eosinophil# 0.35 X10^3/uL; Eosinophils% 4.1 % (0-5); Hematocrit 39.1 % (37-47); Hemoglobin 12.2 g/dL (12.0-15.0); Lymphocyte # 2.52 X10^3/ul (0.83-4.51); Lymphocyte % 29.5 % (19-41); Mean Corp Hgb Conc 31.2 g/dL (32-36); Mean Corpuscular Hgb 31.2 pg (27.0-32.0); Mean Platelet Vol. 8.8 fl (6.2-12.0); Monocyte# 0.95 X10^3/uL; Monocyte% 11.1 % (0-10); NRBC Flagged by Analyzer 0 % (0-5); Neutrophil # 4.64 X10^3/uL (2.7-7.7); Neutrophil % 54.3 % (47-70); Platelet Count 223 K/mm3 (150-450); RBC Distribution Width CV 14.7 % (11.6-14.6); RBC Distribution Width SD 53.5 fl (35.1-43.9); Red Blood Count 3.91 M/mm3 (4.2-5.4); White Blood Count 8.5 K/mm3 (4.4-11.0)
[2023-02-28 13:21] LABS: AST(SGOT) 28 U/L (15-37); Alanine Aminotransfer ALT/SGPT 28 U/L (13-56); Albumin, Serum 3.6 g/dL (3.2-5.0); Alkaline Phosphatase 127 U/L (45-117); Anion Gap 5 (5-15); BUN 27 mg/dL (7-18); BUN/Creat Ratio 22.9 RATIO (10-20); Calcium,Total 9.6 mg/dL (8.5-10.1); Chloride 104 mmol/L (98-107); Creatinine, Serum 1.18 mg/dL (0.55-1.02); EST Glomerular Filtration Rate 47 mL/min (>60); Est Glom Filt Rate - Afr Amer 57 mL/min (>60); Globulin 3.6 g/dL (2.2-4.2); Glucose 104 mg/dL (74-106); LDH 262 U/L (84-246); Potassium 4.2 mmol/L (3.5-5.1); Protein, Total 7.2 g/dL (6.4-8.2); Sodium Level 137 mmol/L (136-145)
== END | disposition home or self-care (01) ==
LOC: RAD 12:05
PROVIDERS: Internal Medicine Medical Oncology; PCP Internal Medicine; Referring Provider Anesthesiology Pain Medicine; Visit Provider Anesthesiology Pain Medicine
DX: Z85.3 Personal history of malignant neoplasm of breast (principal)
CPT/HCPCS: 36415; 73521; 80053; 83615; 85025

== ENCOUNTER → 2023-03-31 | Outpatient (CLI) | payer MEDICARE, SELFPAY ==
[2023-03-31 15:29] LABS: Absolute Lymphocyte Count 2.26 X10^3/uL (0.83-4.51); Absolute Neutrophil Count 6.7 X10^3/uL (2.0-7.7); Basophil# 0.03 X10^3/uL; Basophil% 0.3 % (0-1); Eosinophil# 0.02 X10^3/uL; Eosinophils% 0.2 % (0-5); Hematocrit 39.4 % (37-47); Hemoglobin 12.8 g/dL (12.0-15.0); Lymphocyte # 2.26 X10^3/ul (0.83-4.51); Lymphocyte % 22.2 % (19-41); Mean Corp Hgb Conc 32.5 g/dL (32-36); Mean Corpuscular Hgb 32.4 pg (27.0-32.0); Mean Corpuscular Volume 99.7 fL (81-99); Monocyte# 1.09 X10^3/uL; Monocyte% 10.7 % (0-10); NRBC Flagged by Analyzer 0 % (0-5); Neutrophil # 6.71 X10^3/uL (2.7-7.7); Neutrophil % 65.9 % (47-70); Platelet Count 294 K/mm3 (150-450); RBC Distribution Width CV 14.1 % (11.6-14.6); RBC Distribution Width SD 51.1 fl (35.1-43.9); Red Blood Count 3.95 M/mm3 (4.2-5.4); White Blood Count 10.2 K/mm3 (4.4-11.0)
[2023-03-31 15:43] LABS: AST(SGOT) 20 U/L (15-37); Alanine Aminotransfer ALT/SGPT 28 U/L (13-56); Albumin, Serum 3.7 g/dL (3.2-5.0); Alkaline Phosphatase 109 U/L (45-117); Anion Gap 7 (5-15); BUN 34 mg/dL (7-18); BUN/Creat Ratio 26.4 RATIO (10-20); Calcium,Total 8.8 mg/dL (8.5-10.1); Chloride 103 mmol/L (98-107); Creatinine, Serum 1.29 mg/dL (0.55-1.02); EST Glomerular Filtration Rate 42 mL/min (>60); Est Glom Filt Rate - Afr Amer 51 mL/min (>60); Globulin 3.8 g/dL (2.2-4.2); Glucose 127 mg/dL (74-106); Potassium 4.3 mmol/L (3.5-5.1); Protein, Total 7.5 g/dL (6.4-8.2); Sodium Level 137 mmol/L (136-145); Uric Acid 3.2 mg/dL (2.6-6.0)
== END | disposition home or self-care (01) ==
LOC: MTLAB 12:45
PROVIDERS: PCP Internal Medicine; Referring Provider Internal Medicine Rheumatology; Visit Provider Internal Medicine Rheumatology
DX: L40.59 Other psoriatic arthropathy (principal); Z79.899 Other long term (current) drug therapy
CPT/HCPCS: 36415; 80053; 84550; 85025

== ENCOUNTER 2023-05-09 08:53 | Outpatient (CLI) | payer MEDICARE, SELFPAY ==
[2023-05-09 10:15] LABS: Absolute Lymphocyte Count 2.87 X10^3/uL (0.83-4.51); Absolute Neutrophil Count 3.5 X10^3/uL (2.0-7.7); Basophil# 0.06 X10^3/uL; Basophil% 0.8 % (0-1); Eosinophil# 0.54 X10^3/uL; Hematocrit 39.5 % (37-47); Hemoglobin 12.5 g/dL (12.0-15.0); Lymphocyte # 2.87 X10^3/ul (0.83-4.51); Lymphocyte % 37.1 % (19-41); Mean Corp Hgb Conc 31.6 g/dL (32-36); Mean Corpuscular Hgb 32.1 pg (27.0-32.0); Mean Corpuscular Volume 101.5 fL (81-99); Mean Platelet Vol. 9.2 fl (6.2-12.0); Monocyte# 0.67 X10^3/uL; Monocyte% 8.7 % (0-10); NRBC Flagged by Analyzer 0 % (0-5); Neutrophil # 3.54 X10^3/uL (2.7-7.7); Neutrophil % 45.6 % (47-70); Platelet Count 313 K/mm3 (150-450); RBC Distribution Width CV 14.6 % (11.6-14.6); RBC Distribution Width SD 53.5 fl (35.1-43.9); Red Blood Count 3.89 M/mm3 (4.2-5.4); White Blood Count 7.7 K/mm3 (4.4-11.0)
[2023-05-09 11:13] LABS: ALB/GLOB Ratio 0.9 RATIO (0.9-2.4); AST(SGOT) 22 U/L (15-37); Alanine Aminotransfer ALT/SGPT 23 U/L (13-56); Albumin, Serum 3.6 g/dL (3.2-5.0); Alkaline Phosphatase 131 U/L (45-117); Anion Gap 9 (5-15); BUN 23 mg/dL (7-18); BUN/Creat Ratio 17.6 RATIO (10-20); Calcium,Total 9.2 mg/dL (8.5-10.1); Chloride 104 mmol/L (98-107); Creatinine, Serum 1.31 mg/dL (0.55-1.02); EST Glomerular Filtration Rate 41 mL/min (>60); Est Glom Filt Rate - Afr Amer 50 mL/min (>60); Globulin 4.2 g/dL (2.2-4.2); Glucose 167 mg/dL (74-106); Potassium 4.1 mmol/L (3.5-5.1); Protein, Total 7.8 g/dL (6.4-8.2); Sodium Level 136 mmol/L (136-145)
[2023-05-09 11:28] LABS: Digoxin Level 0.58 ng/mL (0.80-2.00)
== END 2023-05-09 23:59 | disposition home or self-care (01) ==
PROVIDERS: PCP Internal Medicine; Referring Provider Internal Medicine; Visit Provider Internal Medicine
DX: I50.22 Chronic systolic (congestive) heart failure (principal); K58.9 Irritable bowel syndrome, unspecified; R19.7 Diarrhea, unspecified
CPT/HCPCS: 36415; 80053; 80162; 83630; 85025; 87506

== ENCOUNTER → 2023-05-11 | Outpatient (CLI) | payer MEDICARE, SELFPAY | END | disposition home or self-care (01) | LOC: LABSPEC 13:33 | PROVIDERS: PCP Internal Medicine; Referring Provider Internal Medicine; Visit Provider Internal Medicine | DX: R19.7 Diarrhea, unspecified (principal) | CPT/HCPCS: 87493 ==

== ENCOUNTER → 2023-06-22 | Outpatient (CLI) | payer MEDICARE, SELFPAY ==
[2023-06-22 15:11] LABS: Absolute Lymphocyte Count 2.41 X10^3/uL (0.83-4.51); Absolute Neutrophil Count 6.5 X10^3/uL (2.0-7.7); Basophil# 0.04 X10^3/uL; Basophil% 0.4 % (0-1); Eosinophil# 0.41 X10^3/uL; Eosinophils% 3.9 % (0-5); Hematocrit 37.6 % (37-47); Hemoglobin 12.2 g/dL (12.0-15.0); Lymphocyte # 2.41 X10^3/ul (0.83-4.51); Lymphocyte % 23.2 % (19-41); Mean Corp Hgb Conc 32.4 g/dL (32-36); Mean Corpuscular Hgb 31.6 pg (27.0-32.0); Mean Corpuscular Volume 97.4 fL (81-99); Mean Platelet Vol. 9.3 fl (6.2-12.0); Monocyte# 0.97 X10^3/uL; Monocyte% 9.3 % (0-10); NRBC Flagged by Analyzer 0 % (0-5); Neutrophil # 6.52 X10^3/uL (2.7-7.7); Neutrophil % 62.8 % (47-70); Platelet Count 233 K/mm3 (150-450); RBC Distribution Width CV 13.9 % (11.6-14.6); Red Blood Count 3.86 M/mm3 (4.2-5.4); White Blood Count 10.4 K/mm3 (4.4-11.0)
[2023-06-22 16:23] LABS: ALB/GLOB Ratio 0.9 RATIO (0.9-2.4); AST(SGOT) 26 U/L (15-37); Alanine Aminotransfer ALT/SGPT 30 U/L (13-56); Albumin, Serum 3.5 g/dL (3.2-5.0); Alkaline Phosphatase 124 U/L (45-117); Anion Gap 9 (5-15); BUN 24 mg/dL (7-18); BUN/Creat Ratio 17.9 RATIO (10-20); Calcium,Total 8.7 mg/dL (8.5-10.1); Chloride 105 mmol/L (98-107); Creatinine, Serum 1.34 mg/dL (0.55-1.02); EST Glomerular Filtration Rate 40 mL/min (>60); Est Glom Filt Rate - Afr Amer 49 mL/min (>60); Globulin 3.9 g/dL (2.2-4.2); Glucose 139 mg/dL (74-106); Potassium 4.2 mmol/L (3.5-5.1); Protein, Total 7.4 g/dL (6.4-8.2); Sodium Level 137 mmol/L (136-145)
== END | disposition home or self-care (01) ==
LOC: MTLAB 13:17
PROVIDERS: PCP Internal Medicine; Visit Provider Internal Medicine Rheumatology
DX: L40.59 Other psoriatic arthropathy (principal); Z79.899 Other long term (current) drug therapy
CPT/HCPCS: 36415; 80053; 85025

== ENCOUNTER → 2023-07-13 | Outpatient (CLI) | payer MEDICARE, SELFPAY ==
--- NOTE | 2023-07-13 13:51 | CT_ITS ---
STUDY: CT LEFT SHOULDER REASON FOR EXAM: Female, 83 years old. History of total shoulder arthroplasty in March 2023. Follow-up. RADIATION DOSAGE (If Supplied By Facility): CTDIvol = ( 24.58 ) mGy, DLP = ( 588.21 ) mGycm TECHNIQUE: The patient was scanned in a multi detector CT scanner. High resolution transaxial imaging was performed without the administration of intravenous contrast material. Sagittal and coronal images were reconstructed. Individualized dose optimization techniques were used for this CT. COMPARISON: Left shoulder x-rays dated October 28, 2021. FINDINGS: Osteopenia. Total shoulder arthroplasty in anatomic alignment. No complicating features identified. Moderate arthrosis of the AC joint. Muscle atrophy. Patchy opacities in the left upper lobe. . CT/Extremity Upper without Contra IMPRESSION: Osteopenia with uncomplicated total shoulder arthroplasty. 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 Patchy opacities in the left upper lobe. Electronically Signed: Nuno Dill MD at 14:20 EDT ,
== END | disposition home or self-care (01) ==
LOC: CT 13:45
PROVIDERS: PCP Internal Medicine
DX: S42.125A Nondisplaced fracture of acromial process, left shoulder, initial encounter for closed fracture (principal); Z96.612 Presence of left artificial shoulder joint
CPT/HCPCS: 73200

== ENCOUNTER 2023-08-04 13:30 | Outpatient (RCR) | payer MEDICARE, SELFPAY ==
--- NOTE | 2023-07-05 15:59 | HP.PTEVAL_ITS ---
Patient's Visit Information Visit Information Visit Information: DESIRAE BRYANT is a 83 year old F referred to Physical Therapy by Dr. Julieta Bennett MD with a diagnosis of BACK PAIN AND HIP PAIN. Date of Evaluation: 07/05/23 Physical Therapist: Ruiz Roque PT, Cert MDT, OCS Visit Plan Frequency: 2x /Week Duration: 4 Weeks Plan: PRECUATION( Patient had reverse TSR not doing well unable to move thus plan to do CTSCAN) NO UE EXERCSISES WITH LEFT UE PT INTERVETIONS LUMBAR FLEXION , DLS ,POSTURAL EX'S ,AND LE FLEXABLITY Subjective Subjective: This 83 y/o female presents to physical therapy with back and hip pain. Patient has has symptoms for ~ 6 weeks without mechanism of pain . Seen Dr Pace pain management. Patient had epidural injections which did not help. Patient did not have diagnostics , Prescribed tramadol. Location of pain LS /glut lateral hip and occasional groin. Aggravating factors sitting ,walking and standing most significant pain. Alleviating factors ice ,rest. Denies paresthesia/tingling . Coughing/sneezing -. Bowel/bladder -. Patient pain in hip on ,back ,side unable to sleep. Patient pain affects QOL and function. Patient goals to decrease pain. PMH( PRECAUTION) patient had reverse TSR left not doing well SOCIAL: VOCATION: Retired Pain Right Buttocks: Pain Intensity (Out of 10): 5 Pain Intensity Range: 10 Right Hip: Pain Intensity (Out of 10): 5 Pain Intensity Range: 10 Comment: lateral Objective Objective: POSTURE: mild forward posture GAIT: reciprocal pattern PALPATION: tender LS SYMMTRIIES : align LUMBAR ROM: flexion min loss ,extension mod loss pain ,side glides to left mod loss pain MMT: quads/hamstrings 4/5 ,hip flexion/abduction 4-/5 ,ankle 5/5 Special Tests L/S Slump test left side: Negative L/S Slump test right side: Negative L/S Left Straight Leg Raise: Negative L/S Right Straight Leg Raise: Negative Lumbar Standing: Flexion - Mechanical Response: No effect Lumbar Standing: Flexion - Symptoms During Testing: Increases Lumbar Standing: Flexion - Symptoms After Testing: No worse Lumbar Standing: Extension - Mechanical Response: No effect Lumbar Standing: Extension - Symptoms During Testing: Increases Lumbar Standing: Extension - Symptoms After Testing: Worse Lumbar Standing: Right Side Glides - Mechanical Response: No effect Lumbar Standing: Right Side Round Top - Symptoms During Testing: Increases Lumbar Standing: Right Side Round Top - Symptoms After Testing: Worse Lumbar Standing: Left Side Round Top - Mechanical Response: No effect Lumbar Standing: Left Side Round Top - Symptoms During Testing: No effect Lumbar Standing: Left Side Round Top - Symptoms After Testing: No effect Balance/Special Test Scores Oswestry Low Back Score: 32 Goals Goal 1:: Patient to be I with HEP for lumbar Goal Time Frame: 4-6 Weeks Goal 2:: Patient to improve lumbar ROM for function of recovery to tie and put shoes. 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 with pain with walking/standing ,extension and side bending to right thus will benefit from skilled PT Rehabilitation Potential: Good Anticipated Interventions Patient/Client Instruction: Educate patient on: Condition and Plan of Care For the Purpose of:: To decrease pain, To increase ROM, To improve muscle performance and motor function, To improve ability to perform ADL's, To increase tolerance to activity/condition/position, To improve ability of physical actions for home/community/work/leisure, To improve health of tissue, To decrease soft tissue restriction, To increase flexibility/ROM, To improve endurance, To reduce risk of recurrence and To prevent re-injury Therapeutic Exercise to Include: Strength training, Endurance training, Balance training, Body mechanics, Postural training, Flexibilty training and Dynamic Lumbar Stabilization For the Purpose of:: To decrease pain, To increase ROM, To improve muscle performance and motor function, To increase tolerance to activity/conditio n/position, To improve ability of physical actions for home/community/work/leisure, To improve health of tissue, To decrease soft tissue restriction, To increase flexibility/ROM and To reduce risk of recurrence Text: Thank you for the opportunity to evaluate your patient. For Medicare and Medicare HMO plans, please review the plan of care and approve it. It will need to be FAXED BACK to us at [phone] for Medicare purposes. For Medicare only, by signing this I certify the plan of care. Please let me know if there are questions or concerns regarding this plan of care. Physician Signature: Date:
--- NOTE | 2023-08-04 13:44 | HP.PTDCSUM ---
Discharge Summary D/C summary: It has been my pleasure to treat DESIRAE BRYANT referred by Dr. Julieta Bennett MD, with the diagnosis of BACK PAIN AND HIP PAIN for a total of 9 visit(s). Discharge Date: 08/04/23 Please see the following information for a summary of their discharge status. Subjective Subjective: Doing well Able to walk 15 mins Pain Right Buttocks: Pain Intensity (Out of 10): 0 Right Hip: Pain Intensity (Out of 10): 1 Overall Improvement % Improvement: 80 Objective Objective/Function: Objective: POSTURE: mild forward posture GAIT: reciprocal pattern PALPATION: tender LS SYMMTRIIES : align LUMBAR ROM: flexion min loss ,extension mod loss pain ,side glides to left mod loss pain MMT: quads/hamstrings 4/5 ,hip flexion/abduction 4-/5 ,ankle 5/5 Goals Goal 1:: Patient to be I with HEP for lumbar Goal Progress: Goal Met Goal 2:: Patient to improve lumbar ROM for function of recovery to tie and put shoes. Goal 3:: Patient to demonstrate 50% improvement with decrease pain and improved function Goal Progress: Goal Met Goal 4:: Patient to improve back oswestry score by 5 points or> to improve QOL Goal Progress: Goal Met Goal 5:: Patient be able to stand/walk with less pain > 15 mins to improve ADL's Goal Progress: Goal Met Plan Plan: D/C D/C Information Discharge Comments: HEP d/c sentence: If there are questions or concerns regarding this patient's physical therapy, please feel free to call me at [phone]. Thank you for the referral of this patient. Sincerely, Ruiz Roque, PT, Cert MDT, OCS Balance/Gait/Functional tests Balance/Special Test Scores Oswestry Low Back Score: 1 Improvement % Improvement: 80
== END 2023-08-04 19:00 | disposition home or self-care (01) ==
LOC: PT 13:30
PROVIDERS: PCP Internal Medicine; Referring Provider Anesthesiology Pain Medicine; Visit Provider Anesthesiology Pain Medicine
DX: M54.9 Dorsalgia, unspecified (principal); M25.559 Pain in unspecified hip
CPT/HCPCS: 97110; 97162; 97530

== ENCOUNTER → 2023-08-09 | Outpatient (CLI) | payer MEDICARE, SELFPAY ==
[2023-08-09 18:13] LABS: CRP 6.69 mg/L (0.0-3.0)
[2023-08-11 14:08] LABS: Endomysial Antibody IgA Negative (Negative); Immunoglobulin A 135 mg/dL (64-422); t-Transglutaminase IgA <2 U/mL (0-3)
== END | disposition home or self-care (01) ==
LOC: MTLAB 15:08
PROVIDERS: PCP Internal Medicine; Referring Provider Internal Medicine Gastroenterology; Visit Provider Internal Medicine Gastroenterology
DX: R19.7 Diarrhea, unspecified (principal)
CPT/HCPCS: 36415; 82784; 83516; 86140; 86255

== ENCOUNTER → 2023-08-19 | Outpatient (CLI) | payer MEDICARE, SELFPAY ==
[2023-08-19 10:53] LABS: Hemoglobin A1c 6.2 % (3.8-5.6)
[2023-08-19 10:58] LABS: Cholesterol 116 mg/dL (200); Free T3 1.7 pg/mL (2.18-3.98); High Density Lipoprotein 31 mg/dL; T4 Free Direct 1.02 ng/dL (0.76-1.46); Thyroid Stim Hormone (TSH) 1.77 uIU/mL (0.358-3.74); Triglycerides 103 mg/dL; Very Low Density Lipoprotein 21 mg/dL (5-40)
[2023-08-21 09:52] LABS: Vitamin D,25 Hydroxy 56.1 ng/mL
== END | disposition home or self-care (01) ==
LOC: LAB 08:40
PROVIDERS: PCP Internal Medicine; Referring Provider Internal Medicine; Visit Provider Internal Medicine
DX: Z13.220 Encounter for screening for lipoid disorders (principal); I42.8 Other cardiomyopathies; E03.9 Hypothyroidism, unspecified; I10 Essential (primary) hypertension; E78.5 Hyperlipidemia, unspecified; E55.9 Vitamin D deficiency, unspecified; R73.9 Hyperglycemia, unspecified
CPT/HCPCS: 36415; 80061; 82306; 83036; 84439; 84443; 84481

== ENCOUNTER → 2023-08-25 | Outpatient (CLI) | payer MEDICARE, SELFPAY ==
--- NOTE | 2023-08-25 10:36 | ECHOCS_ITS ---
Reason For Study: CHF Procedure This was a 2D Doppler, Color Flow transthoracic echocardiogram. Myocardial strain analysis was performed in this exam to aid in the assessment of cardiac function. Contrast injection was performed. Exam performed in department. Left Ventricle Mid cavitary false tendon noted. Mildly dilated left ventricle. The estimated ejection fraction is 45 %. Stage 1 diastolic dysfunction. There is mild global hypokinesis of the left ventricle. Right Ventricle Normal RV size. Normal systolic function. Atria Normal left atrium. Normal right atrium. Mitral Valve Bileaflet diffuse mitral valve thickening. Moderate (2+) mitral valve insufficiency. Tricuspid Valve Normal tricuspid valve. Mild (1+) tricuspid valve insufficiency. Pulmonary artery systolic pressure is 30 mmHg. Aortic Valve Trisinus/trileaflet aortic valve. Mild diffuse aortic valve thickening. Mild (1+) aortic valve insufficiency. Pulmonic Valve Normal pulmonic valve. Great Vessels Normal aortic root. The pulmonary artery is normal size. Inferior vena cava collapse with respiration. Pericardium/Pleural No pericardial effusion. Medication Diluted definity 2ml given slow IV push to enhance endocardial definition. MMode/2D Measurements & Calculations LVIDd: 6.3 cm IVSd: 0.78 cm Ao root diam: 3.7 cm LVIDs: 5.2 cm LVPWd: 0.79 cm RVDd: 3.8 cm FS: 16.9 % LAV(MOD-bp): 51.7 ml LVAd ap4: 37.4 cm2 SV(MOD-sp4): 59.4 ml LAV(MOD-bp) Indexed: 28.4 ml/m2 LVLd ap4: 8.0 cm LAV(MOD-sp2): 53.4 ml EDV(MOD-sp4): 141.2 ml LAV(MOD-sp4): 48.4 ml EDV(sp4-el): 148.3 ml LVAs ap4: 26.4 cm2 LVLs ap4: 7.1 cm ESV(MOD-sp4): 81.8 ml ESV(sp4-el): 83.7 ml EF(MOD-sp4): 42.1 % EF(sp4-el): 43.6 % SV(sp4-el): 64.6 ml LA A4 area: 17.8 cm2 LA dimension(2D): 4.3 cm RA A4 area: 12.6 cm2 TAPSE: 2.7 cm Time Measurements MV dec time: 0.29 sec Doppler Measurements & Calculations MV E max romario: 55.5 cm/sec Lat Peak E' Romario: 3.5 cm/sec Med Peak E' Romario: 3.2 cm/sec MV A max romario: 105.9 cm/sec E/E' lat: 16.0 E/E' med: 17.6 MV E/A: 0.52 MV dec slope: 194.6 cm/sec2 Ao V2 max: 179.8 cm/sec AI max romario: 378.0 cm/sec Ao max P.9 mmHg AI max P.2 mmHg Ao V2 mean: 129.2 cm/sec AI dec slope: 228.4 cm/sec2 Ao mean P.6 mmHg AI P1/2t: 484.7 msec Ao V2 VTI: 44.6 cm AV (velocity ratio): 0.68 LV V1 max: 116.0 cm/sec PA V2 max: 73.3 cm/sec TR max romario: 249.8 cm/sec LV V1 max P.4 mmHg TR max P.0 mmHg LV V1 mean P.5 mmHg LV V1 mean: 91.2 cm/sec LV V1 VTI: 30.5 cm ECHO/Echo Complete W/ Contrast Interpretation Summary The estimated ejection fraction is 45 %. Mildly dilated left ventricle. There is mild global hypokinesis of the left ventricle. Stage 1 diastolic dysfunction. The global longitudinal strain is moderately abnormal. Mild (1+) aortic valve insufficiency. The global longitudinal strain is moderately abnormal. The global longitudinal strain = -14.3% (abnormal). Ordering Physician: SHERRI DRUMMOND Referring Physician: Annetta Branch Performed By: Keya Nunez RDCS, RVT
== END | disposition home or self-care (01) ==
PROVIDERS: PCP Internal Medicine
DX: I50.22 Chronic systolic (congestive) heart failure (principal)
CPT/HCPCS: 93306; Q9957; A4216; C8929

== ENCOUNTER → 2023-09-15 | Outpatient (CLI) | payer MEDICARE, SELFPAY ==
[2023-09-15 15:31] LABS: Absolute Lymphocyte Count 1.81 X10^3/uL (0.83-4.51); Absolute Neutrophil Count 6.5 X10^3/uL (2.0-7.7); Basophil# 0.03 X10^3/uL; Basophil% 0.3 % (0-1); Eosinophil# 0.18 X10^3/uL; Eosinophils% 1.9 % (0-5); Hematocrit 30.9 % (37-47); Hemoglobin 9.5 g/dL (12.0-15.0); Lymphocyte # 1.81 X10^3/ul (0.83-4.51); Lymphocyte % 19.1 % (19-41); Mean Corp Hgb Conc 30.7 g/dL (32-36); Mean Corpuscular Hgb 31.1 pg (27.0-32.0); Mean Corpuscular Volume 101.3 fL (81-99); Mean Platelet Vol. 8.7 fl (6.2-12.0); Monocyte# 0.81 X10^3/uL; Monocyte% 8.6 % (0-10); NRBC Flagged by Analyzer 0.2 % (0-5); Neutrophil # 6.53 X10^3/uL (2.7-7.7); Platelet Count 277 K/mm3 (150-450); RBC Distribution Width CV 15.4 % (11.6-14.6); RBC Distribution Width SD 54.2 fl (35.1-43.9); Red Blood Count 3.05 M/mm3 (4.2-5.4); White Blood Count 9.5 K/mm3 (4.4-11.0)
[2023-09-15 15:52] LABS: ALB/GLOB Ratio 0.7 RATIO (0.9-2.4); AST(SGOT) 23 U/L (15-37); Alanine Aminotransfer ALT/SGPT 26 U/L (13-56); Albumin, Serum 2.9 g/dL (3.2-5.0); Alkaline Phosphatase 103 U/L (45-117); Anion Gap 6 (5-15); BUN 29 mg/dL (7-18); BUN/Creat Ratio 22.5 RATIO (10-20); Calcium,Total 8.5 mg/dL (8.5-10.1); Chloride 107 mmol/L (98-107); Creatinine, Serum 1.29 mg/dL (0.55-1.02); EST Glomerular Filtration Rate 42 mL/min (>60); Est Glom Filt Rate - Afr Amer 51 mL/min (>60); Glucose 131 mg/dL (74-106); Protein, Total 6.9 g/dL (6.4-8.2); Sodium Level 137 mmol/L (136-145)
== END | disposition home or self-care (01) ==
LOC: MTLAB 13:22
PROVIDERS: PCP Internal Medicine; Referring Provider Internal Medicine Rheumatology; Visit Provider Internal Medicine Rheumatology
DX: L40.59 Other psoriatic arthropathy (principal); Z79.899 Other long term (current) drug therapy; L40.8 Other psoriasis; M17.0 Bilateral primary osteoarthritis of knee
CPT/HCPCS: 36415; 80053; 85025

== ENCOUNTER → 2023-09-20 | Outpatient (CLI) | payer MEDICARE, SELFPAY ==
[2023-09-20 11:23] LABS: Hematocrit 33.7 % (37-47); Hemoglobin 10.3 g/dL (12.0-15.0); Mean Corp Hgb Conc 30.6 g/dL (32-36); Mean Corpuscular Hgb 31.3 pg (27.0-32.0); Mean Corpuscular Volume 102.4 fL (81-99); Mean Platelet Vol. 8.5 fl (6.2-12.0); Platelet Count 311 K/mm3 (150-450); RBC Distribution Width CV 15.9 % (11.6-14.6); RBC Distribution Width SD 59.8 fl (35.1-43.9); Red Blood Count 3.29 M/mm3 (4.2-5.4); White Blood Count 5.5 K/mm3 (4.4-11.0)
[2023-09-20 11:46] LABS: Erythrocyte Sedimentation Rate 36 mm/hr (0-30)
[2023-09-20 12:08] LABS: Anion Gap 9 (5-15); BUN 34 mg/dL (7-18); BUN/Creat Ratio 30.4 RATIO (10-20); Calcium,Total 8.7 mg/dL (8.5-10.1); Chloride 103 mmol/L (98-107); Creatinine, Serum 1.12 mg/dL (0.55-1.02); EST Glomerular Filtration Rate 50 mL/min (>60); Est Glom Filt Rate - Afr Amer 60 mL/min (>60); Glucose 167 mg/dL (74-106); Potassium 3.6 mmol/L (3.5-5.1); Sodium Level 138 mmol/L (136-145)
[2023-09-20 12:50] LABS: Iron 146 ug/dL (50-170); Iron Binding Capacity,Total 326 ug/dL (250-450); PERCENT IRON SATURATION 44.8 % (15.0-55.0)
== END | disposition home or self-care (01) ==
LOC: LABSPEC 10:30
PROVIDERS: PCP Internal Medicine; Referring Provider Internal Medicine Infectious Disease; Visit Provider Internal Medicine Infectious Disease
DX: T84.59XA Infection and inflammatory reaction due to other internal joint prosthesis, initial encounter (principal); Z96.612 Presence of left artificial shoulder joint; D75.89 Other specified diseases of blood and blood-forming organs; D64.9 Anemia, unspecified
CPT/HCPCS: 80048; 82746; 83540; 83550; 85027; 85652

== ENCOUNTER 2023-10-04 12:30 | Outpatient (RCR) | payer MEDICARE, SELFPAY ==
[2023-09-26 15:41] LABS: Hematocrit 36.2 % (37-47); Hemoglobin 10.9 g/dL (12.0-15.0); Mean Corp Hgb Conc 30.1 g/dL (32-36); Mean Corpuscular Hgb 31.1 pg (27.0-32.0); Mean Corpuscular Volume 103.1 fL (81-99); Platelet Count 285 K/mm3 (150-450); RBC Distribution Width CV 15.4 % (11.6-14.6); Red Blood Count 3.51 M/mm3 (4.2-5.4); White Blood Count 7.4 K/mm3 (4.4-11.0)
[2023-09-26 15:53] LABS: Anion Gap 5 (5-15); BUN 31 mg/dL (7-18); BUN/Creat Ratio 26.7 RATIO (10-20); Calcium,Total 8.9 mg/dL (8.5-10.1); Chloride 103 mmol/L (98-107); Creatinine, Serum 1.16 mg/dL (0.55-1.02); EST Glomerular Filtration Rate 48 mL/min (>60); Est Glom Filt Rate - Afr Amer 58 mL/min (>60); Glucose 113 mg/dL (74-106); Potassium 3.6 mmol/L (3.5-5.1); Sodium Level 137 mmol/L (136-145)
[2023-09-26 15:55] LABS: Erythrocyte Sedimentation Rate 30 mm/hr (0-30)
[2023-10-04 13:05] LABS: Erythrocyte Sedimentation Rate 36 mm/hr (0-30)
[2023-10-04 13:08] LABS: Hematocrit 35.4 % (37-47); Hemoglobin 11.2 g/dL (12.0-15.0); Mean Corp Hgb Conc 31.6 g/dL (32-36); Mean Corpuscular Hgb 32.1 pg (27.0-32.0); Mean Corpuscular Volume 101.4 fL (81-99); Mean Platelet Vol. 8.6 fl (6.2-12.0); Platelet Count 180 K/mm3 (150-450); RBC Distribution Width CV 14.8 % (11.6-14.6); RBC Distribution Width SD 54.8 fl (35.1-43.9); Red Blood Count 3.49 M/mm3 (4.2-5.4); White Blood Count 6.7 K/mm3 (4.4-11.0)
[2023-10-04 13:19] LABS: Anion Gap 9 (5-15); BUN 31 mg/dL (7-18); BUN/Creat Ratio 33.7 RATIO (10-20); Calcium,Total 8.2 mg/dL (8.5-10.1); Chloride 104 mmol/L (98-107); Creatinine, Serum 0.92 mg/dL (0.55-1.02); EST Glomerular Filtration Rate 62 mL/min (>60); Est Glom Filt Rate - Afr Amer 75 mL/min (>60); Glucose 83 mg/dL (74-106); Potassium 3.5 mmol/L (3.5-5.1); Sodium Level 140 mmol/L (136-145)
[2023-10-11 15:24] LABS: Erythrocyte Sedimentation Rate 48 mm/hr (0-30)
[2023-10-11 15:26] LABS: Anion Gap 8 (5-15); BUN 31 mg/dL (7-18); BUN/Creat Ratio 32.2 RATIO (10-20); Calcium,Total 8.8 mg/dL (8.5-10.1); Chloride 100 mmol/L (98-107); Creatinine, Serum 0.96 mg/dL (0.55-1.02); EST Glomerular Filtration Rate 59 mL/min (>60); Est Glom Filt Rate - Afr Amer 71 mL/min (>60); Glucose 93 mg/dL (74-106); Hematocrit 34.6 % (37-47); Hemoglobin 10.8 g/dL (12.0-15.0); Mean Corp Hgb Conc 31.2 g/dL (32-36); Mean Corpuscular Hgb 31.6 pg (27.0-32.0); Mean Corpuscular Volume 101.2 fL (81-99); Mean Platelet Vol. 9.4 fl (6.2-12.0); POSITIVE COUNT YES; Platelet Count 209 K/mm3 (150-450); Potassium 3.8 mmol/L (3.5-5.1); RBC Distribution Width CV 14.2 % (11.6-14.6); RBC Distribution Width SD 52.9 fl (35.1-43.9); Red Blood Count 3.42 M/mm3 (4.2-5.4); Sodium Level 137 mmol/L (136-145)
[2023-10-11 16:00] LABS: White Blood Count 1.2 K/mm3 (4.4-11.0)
[2023-10-11 17:21] LABS: Scan Indicated on CBC? Y/N YES- FLAGS NOTED
[2023-10-13 14:25] LABS: Pathologist Review Reviewed
== END 2023-10-19 18:00 | disposition home or self-care (01) ==
LOC: HHLAB 12:30
PROVIDERS: PCP Internal Medicine; Referring Provider Internal Medicine Infectious Disease; Visit Provider Internal Medicine Infectious Disease
DX: M00.212 Other streptococcal arthritis, left shoulder (principal); T84.59XA Infection and inflammatory reaction due to other internal joint prosthesis, initial encounter; I11.0 Hypertensive heart disease with heart failure; I50.22 Chronic systolic (congestive) heart failure; I42.8 Other cardiomyopathies; E11.9 Type 2 diabetes mellitus without complications; B95.0 Streptococcus, group A, as the cause of diseases classified elsewhere; Z45.2 Encounter for adjustment and management of vascular access device; K52.832 Lymphocytic colitis; E78.5 Hyperlipidemia, unspecified; K21.9 Gastro-esophageal reflux disease without esophagitis; D50.9 Iron deficiency anemia, unspecified; E03.9 Hypothyroidism, unspecified; K57.90 Diverticulosis of intestine, part unspecified, without perforation or abscess without bleeding; N39.3 Stress incontinence (female) (male); M51.16 Intervertebral disc disorders with radiculopathy, lumbar region; M79.2 Neuralgia and neuritis, unspecified; L40.9 Psoriasis, unspecified; Z96.612 Presence of left artificial shoulder joint
CPT/HCPCS: 80048; 85027; 85652

== ENCOUNTER → 2023-10-11 | Outpatient (CLI) | payer MEDICARE, SELFPAY | END | disposition home or self-care (01) | LOC: LABSPEC 15:17 | PROVIDERS: PCP Internal Medicine; Referring Provider Internal Medicine Infectious Disease; Visit Provider Internal Medicine Infectious Disease | DX: Z96.612 Presence of left artificial shoulder joint (principal) ==

== ENCOUNTER 2023-10-17 14:45 | Emergency (ER) | payer MEDICARE, SELFPAY ==
[2023-10-17 14:46] VITALS: BP 117/65; PULSE 111; RESP 16; TEMP 36.4; O2SAT 97; BMI 30.1
--- NOTE | 2023-10-17 15:11 | EKG12_ITS ---
Test Reason : Blood Pressure : / mmHG Vent. Rate : 102 BPM Atrial Rate : 102 BPM P-R Int : 158 ms QRS Dur : 078 ms QT Int : 348 ms P-R-T Axes : 037 -18 077 degrees QTc Int : 453 ms Sinus tachycardia Minimal voltage criteria for LVH, may be normal variant ( R in aVL ) Borderline ECG Confirmed by VICENTA FLOREZ, SARAH ([id number]), editor map BENNETT WEAVER ([id number]) on 10/18/2023 11:08:04 AM Referred By: Confirmed By:SARAH YADAV MD
--- NOTE | 2023-10-17 15:14 | EX.ED.GENINJ ---
HPI History of Present Illness Chief Complaint: Chest Other Informant: patient and spouse/S.O. Narrative Narrative: Patient presents with questions about the functioning of her ICD. She also has some sore areas in her mouth. Patient states that last night her ICD was going off all night. What she means by that is that the lights on the monitor next to her bed were flashing different colors intermittently. But the ICD never shocked her. She never had chest pain shortness of breath or palpitations. She is not lightheaded or dizzy. There have been no change in her meds for her heart. She is on digoxin every other day. Patient also states that she has some ulcerations in her mouth for approximately 4 days. She has had these in the past. Ever since she had chemo this happens easily. It might be due to some spicy food she had on Monday. But she also switched from IV antibiotics for 5 weeks to an oral antibiotic that sounds like Levaquin Monday. She has only about 1 or 2 more tablets left. She is on antibiotics because she had an infected shoulder and the components were taken out. Her highest temperature recently has been 99.9. Patient is a little bit more tired this weekend. But no specific new symptoms. Again, her defibrillator has never shocked her and she has had it in place since 2007. She sees Dr. Villarreal in [facility] for cardiology. [facility] Medical History Anemia Anxiety Arthritis Atrial enlargement, bilateral Carpal tunnel syndrome on both sides Chronic back pain Chronic pain COPD (chronic obstructive pulmonary disease) Degenerative disc disease, lumbar Depression DVT (deep venous thrombosis) Essential (primary) hypertension Frequent falls GERD (gastroesophageal reflux disease) Greater trochanteric bursitis of right hip HLD (hyperlipidemia) Hyponatremia Hypothyroidism IT band syndrome Kidney disease Lightheadedness Low back pain Mitral valve disorder Mouth ulcers Non-ischemic cardiomyopathy Nonrheumatic mitral (valve) insufficiency Obesity On potassium wasting diuretic therapy Osteoporosis Palpitations Paronychia of finger Paroxysmal supraventricular tachycardia Primary osteoarthritis of right knee Recurrent cancer of left breast Right knee pain Right lumbar radiculitis Shortness of breath Trigger finger, right middle finger Trochanteric bursitis of right hip Home Medications calcium carbonate 600 mg-vitamin D3 10 mcg (400 unit) tablet 1 each PO DAILY supplement 08/08/14 [History Last Taken 10/17/21] multivitamin 1 tablet PO DAILY supplement 01/19/21 [History Last Taken 10/17/21] cholecalciferol (vitamin D3) 125 mcg (5,000 unit) tablet (Vitamin D3) 125 mcg PO DAILY 02/15/22 [History Last Taken Unknown] spironolactone 50 mg tablet 50 mg PO DAILY #90 tabs 04/19/22 [Rx Last Taken Unknown] metoprolol succinate 25 mg tablet,extended release 24 hr 12.5 mg (1/2 x 25 mg) PO DAILY #45 tabs 05/20/22 [Rx Last Taken Unknown] sacubitril 49 mg-valsartan 51 mg tablet (Entresto) 1 tab PO BID 06/13/22 [History Last Taken Unknown] digoxin 125 mcg (0.125 mg) tablet 125 mcg PO .Every Other Day 07/18/22 [History Last Taken Unknown] hydroxyzine HCl 25 mg tablet ea PO 07/18/22 [History Last Taken Unknown] torsemide 20 mg tablet 20 mg PO DAILY 07/18/22 [History Last Taken Unknown] leflunomide 10 mg tablet ea PO 09/21/22 [History Last Taken Unknown] allopurinol 300 mg tablet 300 mg PO DAILY gout #90 tabs 01/09/23 [Rx Last Taken Unknown] simvastatin 40 mg tablet 40 mg PO QPM cholesterol #90 tabs 01/09/23 [Rx Last Taken Unknown] budesonide 3 mg capsule,delayed,extended release mg PO 08/22/23 [History Last Taken Unknown] levothyroxine 112 mcg tablet 112 mcg PO DAILY thyroid #90 tabs 08/28/23 [Rx Last Taken Unknown] sucralfate 100 mg/mL oral suspension (Carafate) 10 ml PO BID PRN sore mouth #200 mL 10/17/23 [Rx Last Taken Unknown] Allergy/AdvReac Type Severity Reaction Status Date / Time adhesive tape [tape] Allergy Severe RASH, Verified 06/27/23 12:35 ITCHING cephalexin Allergy Severe Rash Verified 06/27/23 12:35 paclitaxel [From Taxol] Allergy Severe PASS OUT Verified 06/27/23 12:35 amoxicillin AdvReac Severe C-DIFF Verified 06/27/23 12:35 spironolactone AdvReac Intermediate Mouth Verified 06/27/23 12:35 sores and vaginal yeast infections hydrocodone AdvReac Vomiting Verified 06/27/23 12:35 Family History Mother , age 90 CHF (congestive heart failure) Cancer Breast cancer CAD (coronary artery disease) Brother , age 71 CHF (congestive heart failure) Hx of CABG Brother CAD (coronary artery disease) Daughter Asthma Surgical History H/O right and left heart catheterization (2009) History of appendectomy History of bilateral knee replacement History of carpal tunnel release of both wrists History of hysterectomy History of implantable cardiac defibrillator (ICD) (08/22/14) History of left heart catheterization (04/20/22) History of left knee replacement History of lumpectomy of left breast History of shoulder surgery History of total bilateral knee replacement Hx of cholecystectomy Social History household members: spouse housing: house pets and animals: No Smoking Status: Never smoker alcohol intake: never substance use type: does not use caffeine: No what type of physical activity do you participate in: bicycling and other frequency: 3-4 times per week duration: 15-30 minutes/day seatbelt use: always do you feel safe at home: Yes ROS ROS ED ROS Narrative A complete review of systems was performed and is negative except as documented in the history of present illness. Some specific details below. Constitutional: No recent fevers or chills. Highest temperature was 99.9. EYE: No discharge, visual complaints, or pain. ENT: Sores in both sides of her cheek and side of her tongue. She is able to swallow. No swelling. No pain. No reflux symptoms. CV: See history of present illness. Her ICD lites were going off but she has not been countershock and has not had chest pain or palpitations or dyspnea. Respiratory: History of CHF but not having any cough or trouble breathing. GI: No abdominal pain. No nausea vomiting diarrhea. No blood in stool. : No frequency dysuria or hematuria. Musculoskeletal: No recent trauma. No pains. No swelling. She does have removal of hardware from her left shoulder and has limited motion there but no acute changes. Skin: No rash. Nondiaphoretic. Neuro: No focal weakness or numbness. Endocrine: No polyuria or polydipsia. EXAM Physical Exam Narrative Exam Narrative: CONSTITUTIONAL: Patient is nontoxic in appearance. The patient looks comfortable. Work of breathing looks normal. HEENT: No notable trauma. Mucous membranes moist. There are a few erosions on both sides of the tongue and anterior buccal membrane. No blistering. No swelling. No sinus tenderness. No indication of pain with swallowing. EYES: No conjunctival injection. No proptosis. NECK:No JVD. No stridor. CARDIOVASCULAR: Regular rate at about 100. Regular rhythm. No notable murmur. No JVD. RESPIRATORY: No respiratory distress. Breathing is unlabored. No wheezes. No rhonchi. No rales. No pain with a deep breath. No chest wall tenderness. ICD is palpable in the left upper chest. GASTROINTESTINAL: Not distended. Bowel sounds are normal. No tenderness. No guarding. No rebound. No palpable mass. No bruit is heard. GENITOURINARY: No tenderness over the bladder. No CVA tenderness. MUSCULOSKELETAL: Atraumatic. No peripheral edema. No cord. No tenderness along the deep venous system. No asymmetry. No distended veins. Well-healed incision in the anterior surface of the left shoulder. There is also a 2 port power PICC in the right arm that does not look infected. NEUROLOGICAL: Patient is alert and appropriate. No focal deficit noted. SKIN: No noted rashes. No diaphoresis. PSYCHIATRIC: Patient is calm. Mood is appropriate. Const Vital Signs: 10/17/23 14:46 10/17/23 15:50 Temperature 97.5 F L Temperature Source Temporal Pulse Rate 111 H Respiratory Rate 16 Respiratory Effort Normal Non-Labored Blood Pressure 117/65 Blood Pressure Mean 82 Pulse Ox 97 Oxygen Delivery Method Room Air MDM MDM MDM Narrative Medical decision making narrative: My independent interpretation of the patient's single view chest x-ray shows her shoulder surgeries including antibiotic implant. May be minimal atelectasis. Final reading is possible but is lower in the's. But she is not having coughing or breathing issues at all now. She is already on Levaquin. I do not think we need to look further into this at this time. Patient CBC shows low white count and hemoglobin. Her white count is only 1.5 but is 1.2 about 6 days ago she so it is increasing. This might have been the reason they stopped her antibiotics through the IV. She has a single dose of Levaquin orally left and she is off antibiotics. This may also be associated with a virus. But it is climbing. I think this does need for. Patient's electrolytes show a slight bump in her creatinine at 1.28. This is consistent with her history of not drinking quite as much. She states the ulcers in her mouth make it a little bit sore to drink although she is able to swallow. Magnesium level is normal at 1.9. Digoxin level is normal at 0.95. We talked with the rep who did a query of her ICD. Evidently there were no dysrhythmias or countershocks or problems. The events with the lights going on and off last night was a software update. I think patient is okay to go home. We discussed that she can use Maalox since with a low for this source of right care she will if that is not helping. She should follow-up for repeat CBC and evaluation. Lab Data Attestation: I reviewed the patient's lab results. Labs: Laboratory Results - last 24 hr 10/17/23 15:40 WBC 1.5 L* RBC 3.39 L Hgb 10.9 L Hct 32.4 L MCV 95.6 MCH 32.2 H MCHC 33.6 RDW Std Deviation 47.9 H RDW Coeff of Cookie 13.6 Plt Count 268 MPV 9.0 Immature Gran % (Auto) 0.000 Neut % (Auto) 2.1 L Lymph % (Auto) 65.5 H [place] % (Auto) 32.4 H Eos % (Auto) 0.0 Baso % (Auto) 0.0 Absolute Neuts (auto) 0.0 L Absolute Lymphs (auto) 0.95 Nucleated RBC % 0 Differential Comment SCANNED Diff Path Review May foll Sodium 134 L Potassium 4.0 Chloride 102 Carbon Dioxide 25.0 Anion Gap 7 BUN 44 H Creatinine 1.28 H Estim Creat Clear Calc 28.51 Est GFR (MDRD) Af Amer 51 L Est GFR (MDRD) Non-Af 43 L BUN/Creatinine Ratio 34.4 H Glucose 106 Calcium 8.9 Magnesium 1.9 Digoxin 0.95 Radiography Diagnostic Testing: Clinical Impression(s) from Imaging Studies Chest X-Ray 10/17/23 15:55 IMPRESSION: Mild bilateral basilar infiltrates. Electronically Signed: Rolf Phelan DO at 16:30 EST Reading Location ID and State: [facility] / [place] Tel [phone], Service support , EKG Initial EKG: Comments: My independent interpretation of the patient's EKG shows sinus rhythm with mild tachycardic rate at 102. No ventricular ectopy. Mild motion artifact. Borderline LVH. No sign of acute ST elevation or depression. [place] interval, QRS duration and QTc are all normal. Discharge Plan Triage Chief Complaint: Chest Other ED Provider: Alvin Arellano Dx/Rx/DC Orders Clinical Impression: Leukopenia, Aphthous ulcer, ICD (implantable cardioverter-defibrillator) in place, Dehydration Instructions: ED Kaveh Cadet, ED Dehydration (Adult) Prescriptions: New sucralfate [Carafate] 100 mg/mL suspension 10 ml PO BID PRN (Reason: sore mouth) Qty: 200 0RF Rx Instructions: Swish and swallow twice a day as needed for sores in mouth No Action multivitamin Tablet 1 tablet PO DAILY torsemide 20 mg tablet 20 mg PO DAILY digoxin 125 mcg (0.125 mg) tablet 125 mcg PO .Every Other Day hydroxyzine HCl 25 mg tablet PO Patient Comments: TAKE 1/2 (ONE-HALF) TABLET BY MOUTH ONCE DAILY NEEDED FOR ANXIETY, SHORTNESS OF BREATH/ITCHING Entresto 49-51 mg tablet 1 tab PO BID leflunomide 10 mg tablet PO Patient Comments: TAKE 1 TABLET BY MOUTH ONCE DAILY budesonide 3 mg capsule,delayed,extend.release PO calcium carbonate-vitamin D3 1 EACH tablet 1 each PO DAILY Patient Comments: SUPPLEMENT cholecalciferol (vitamin D3) [Vitamin D3] 125 mcg (5,000 unit) Tablet 125 mcg PO DAILY spironolactone 50 mg tablet 50 mg PO DAILY Qty: 90 3RF metoprolol succinate 25 mg tablet extended release 24 hr 12.5 mg PO DAILY Qty: 45 0RF allopurinol 300 mg tablet 300 mg PO DAILY Qty: 90 3RF simvastatin 40 mg tablet 40 mg PO QPM Qty: 90 3RF levothyroxine 112 mcg tablet 112 mcg PO DAILY Qty: 90 3RF Primary Care Provider: Annetta Branch Referrals: Annetta Branch MD [Primary Care Provider] - 3-5 Days Disposition Disposition: Home, Self Care
[2023-10-17 15:54] LABS: Absolute Lymphocyte Count 0.95 X10^3/uL (0.83-4.51); Hematocrit 32.4 % (37-47); Hemoglobin 10.9 g/dL (12.0-15.0); Lymphocyte # 0.95 X10^3/ul (0.83-4.51); Lymphocyte % 65.5 % (19-41); Mean Corp Hgb Conc 33.6 g/dL (32-36); Mean Corpuscular Hgb 32.2 pg (27.0-32.0); Mean Corpuscular Volume 95.6 fL (81-99); Monocyte# 0.47 X10^3/uL; Monocyte% 32.4 % (0-10); NRBC Flagged by Analyzer 0 % (0-5); Neutrophil # 0.03 X10^3/uL (2.7-7.7); Neutrophil % 2.1 % (47-70); POSITIVE COUNT YES; POSITIVE DIFFERENTIAL YES; Platelet Count 268 K/mm3 (150-450); RBC Distribution Width CV 13.6 % (11.6-14.6); RBC Distribution Width SD 47.9 fl (35.1-43.9); Red Blood Count 3.39 M/mm3 (4.2-5.4)
--- NOTE | 2023-10-17 15:55 | RAD_ITS ---
INDICATION: ICD and PICC line placement EXAMINATION/TECHNIQUE: X-RAY - XR Chest 1 View COMPARISON: March 18, 2022 FINDINGS: LINES/DEVICES: Right venous line with tip likely at the mid SVC level. LUNGS: Bibasilar mild infiltrates. No pneumothorax. MEDIASTINUM AND CARDIOVASCULAR STRUCTURES: Cardiac silhouette not enlarged. Central airways and mediastinal contour are unremarkable. BONES AND SOFT TISSUES: Right shoulder prosthesis. Left humeral prosthesis. Degenerative vertebral changes. RAD/Chest 1 View (Portable) IMPRESSION: Mild bilateral basilar infiltrates. Electronically Signed: Rolf Phelan DO at 16:30 EST Reading Location ID and State: [facility] / [place] Tel [phone], Service support ,
[2023-10-17 15:59] LABS: Differential Indicated SCAN CRITERIA MET; White Blood Count 1.5 K/mm3 (4.4-11.0)
[2023-10-17 16:13] LABS: Anion Gap 7 (5-15); BUN 44 mg/dL (7-18); BUN/Creat Ratio 34.4 RATIO (10-20); Calcium,Total 8.9 mg/dL (8.5-10.1); Chloride 102 mmol/L (98-107); Creatinine, Serum 1.28 mg/dL (0.55-1.02); EST Glomerular Filtration Rate 43 mL/min (>60); Est Glom Filt Rate - Afr Amer 51 mL/min (>60); Estimated Creatinine Clearance 28.51 ml/min; Glucose 106 mg/dL (74-106); Magnesium 1.9 mg/dL (1.6-2.6); Sodium Level 134 mmol/L (136-145)
[2023-10-17 16:15] LABS: Differential Comment SCANNED
[2023-10-17 16:38] LABS: Digoxin Level 0.95 ng/mL (0.80-2.00)
[2023-10-18 15:27] LABS: Pathologist Review Reviewed
== END 2023-10-17 17:34 | disposition home or self-care (01) ==
PROVIDERS: Emergency Provider Emergency Medicine; PCP Internal Medicine; Visit Provider Emergency Medicine
DX: E86.0 Dehydration (principal); J44.9 Chronic obstructive pulmonary disease, unspecified; I42.8 Other cardiomyopathies; Z95.810 Presence of automatic (implantable) cardiac defibrillator; I10 Essential (primary) hypertension; E78.5 Hyperlipidemia, unspecified; D72.819 Decreased white blood cell count, unspecified; K12.0 Recurrent oral aphthae; Z92.21 Personal history of antineoplastic chemotherapy; Z79.899 Other long term (current) drug therapy; E03.9 Hypothyroidism, unspecified; Z90.49 Acquired absence of other specified parts of digestive tract; Z96.653 Presence of artificial knee joint, bilateral; Z90.710 Acquired absence of both cervix and uterus
CPT/HCPCS: 71045; 80048; 80162; 83735; 85025; 87428; 93005; 99283; A4216

== ENCOUNTER → 2023-10-23 | Outpatient (CLI) | payer MEDICARE, SELFPAY ==
[2023-10-23 15:36] LABS: Hematocrit 38.2 % (37-47); Hemoglobin 12.1 g/dL (12.0-15.0); Mean Corp Hgb Conc 31.7 g/dL (32-36); Mean Corpuscular Hgb 30.7 pg (27.0-32.0); Mean Platelet Vol. 8.7 fl (6.2-12.0); POSITIVE COUNT YES; POSITIVE MORPHOLOGY YES; Platelet Count 335 K/mm3 (150-450); RBC Distribution Width SD 50.1 fl (35.1-43.9); Red Blood Count 3.94 M/mm3 (4.2-5.4); White Blood Count 9.6 K/mm3 (4.4-11.0)
[2023-10-23 15:41] LABS: Differential Indicated MANUAL DIFF
[2023-10-23 16:05] LABS: Vitamin B12 333 pg/mL (211-911)
[2023-10-23 17:52] LABS: Lymphocyte 27 % (19-41); Metamyelocyte 5 % (0-1); Monocyte 4 % (0-10); Myelocyte 11 % (0-0); Neutrophil-Band 6 % (0-5); Neutrophil-Segmented 47 % (47-70); Total Cells Counted 100 (MANUAL DIFF)
[2023-10-23 18:03] LABS: Absolute Lymphocyte Count 2.59 X10^3/uL (0.83-4.51); Absolute Neutrophil Count 5.1 X10^3/uL (2.0-7.7); Platelet Estimate ADEQUATE (ADEQ); Red Cell Morphology N CHROM NORMAL (NORM C&C)
[2023-10-23 18:04] LABS: Anisocytosis 1+; Macrocytosis 1+
[2023-10-24 14:47] LABS: Pathologist Review Reviewed
== END | disposition home or self-care (01) ==
LOC: LAB 14:43
PROVIDERS: PCP Internal Medicine; Referring Provider Internal Medicine Infectious Disease; Visit Provider Internal Medicine Infectious Disease
DX: D70.9 Neutropenia, unspecified (principal); E53.8 Deficiency of other specified B group vitamins; D64.9 Anemia, unspecified; D75.89 Other specified diseases of blood and blood-forming organs
CPT/HCPCS: 36415; 82607; 85025

== ENCOUNTER → 2023-11-25 | Outpatient (CLI) | payer MEDICARE, SELFPAY ==
--- OUTSIDE RECORDS SUMMARY | 2023-11-25 09:16 | XMS RPT_ITS | CCD ---
Author Name Unknown Address [address] [place] [address] Organization [facility] Care Team Providers Care Wheel Borer Name Role Phone KATE Bellamy, Manju Starr Unavailable Unavailable KATE Bellamy, Manju Starr Unavailable Unavailable KATE Bellamy, Manju M Unavailable Unavailable KATE Bellamy, Manju M Unavailable Unavailable DeFinis, Harumi Y Unavailable Unavailable Angie Perkins Unavailable Unavailable KATE Bellamy Sue M Unavailable Unavailable PHYSICIAN, NONE Primary Care Physician Unavailab Marquis Pace MD Primary Care Provider [phone] Marquis Harden Primary Care Provider [phone] Marquis Harden MD Primary Care Provider [phone] Marquis Harden Primary Care Provider [phone] MARQUIS HARDEN Primary Care Unavailable MARQUIS HARDEN Primary Care Unavailable DR ROSEMARIE MAHARAJ MD Attending Unavailabl e PHYSICIAN, NONE Primary Care Unavailable Cherri Villarreal RN Unavailable Unavailable JOSE CARLOSMARQUIS Primary Care Unavailable SREEDHAR DRUMMOND Attending Unavailable HODA SREEDHAR Referring Unavailable JOSE CARLOS, MARQUIS Primary Care Unavailable JEANE CAMPA Attending Unavailable JOSE CARLOS, MARQUIS Primary Care Unavailable JOSE CARLOS, MARQUIS Primary Care Unavailable JOSE CARLOS, MARQUIS Primary Care Unavailable JEANE CAMPA Attending Unavailable JOSE CARLOS, MARQUIS Primary Care Unavailable JOSE CARLOS, MARQUIS Primary Care Unavailable MONEYPENOG, SREEDHAR Attending Unavailable JOSE CARLOS, MARQUIS Primary Care Unavailable JOSE CARLOS, MARQUIS Primary Care Unavailable GILBERTO RAND Admitting Unavailable GILBERTO RAND Attending Unavailable MARQUIS HARDEN Primary Care Unavailable KEVON HALL Consulting Unavailable GILBERTO RAND Referring Unavailable MARQUIS HARDEN Primary Care Unavailable MARQUIS HARDEN Primary Care Unavailable GILBERTO RAND Referring Unavailable MARQUIS HARDEN Primary Care Unavailable GILBERTO RAND Admitting Unavailable GILBERTO RAND Attending Unavailable MARQUIS HARDEN Primary Care Unavailable ARRON AVALOS Consulting Unavailable Allergies Allergy Classification Reported Allergen(s) Allergy Type Date of Onset Reaction(s) Facility (7 sources) amoxicillin drug allergy 05-18-20 16 rash [facility] Work Phone: [phone] (7 sources) PACLitaxel drug allergy 04-21-20 11 [facility] Work Phone: [phone] (13 sources) Acetaminophen / HYDROcodone; Translations: [HYDROCODONE-ACETA MINOPHEN] Drug Allergy 06-27-20 19 Vomiting, Other, Nausea And Vomiting [facility] (8 sources) Adhesive Tape; Translations: [ADHESIVE TAPE (ROSINS)] Propensity to adverse reactions to substance 10-22-20 08 Other: See Comments [facility] (13 sources) Amoxicillin / Clavulanate; Translations: [AMOXICILLIN-POT CLAVULANATE] Drug Allergy 09-13-20 11 Diarrhea [facility] (13 sources) Cephalexin; Translations: [CEPHALEXIN] Drug Allergy 04-27-20 16 Rash [facility] (8 sources) PACLitaxel; Translations: [PACLITAXEL] Drug Allergy 02-12-20 09 [facility] (5 sources) Nitrofurantoin Drug Allergy 11-02-20 22 Other [facility] (5 sources) PACLitaxel Drug Allergy 02-12-20 09 [facility] (5 sources) Other Propensity to adverse reactions 11-02-20 22 Other [facility] (5 sources) Wound Dressing Adhesive Drug Intolerance 10-22-20 08 Other [facility] Medications Current Medications Medication Drug Class(es) Dates Sig (Normalized) Sig (Original) allopurinol 300 mg oral tablet (11 sources) Xanthine Oxidase Inhibitor Start: 12-24-2020 allopurinol (Zyloprim) 300 MG tablet Take 40 mg by mouth daily. 0 12/24/2020 Active Completed/Discontinued Medications Medication Drug Class(es) Dates Sig (Normalized) Sig (Original) acetaminophen 500 mg oral tablet (1 source) take 1 tablet by mouth every eight hours as needed acetaminophen (TYLENOL EXTRA STRENGTH) 500 mg tablet Take 500 mg by mouth every 8 hours as needed. 0 Active Problems Active Problems Problem Classification Problem Date Documented Date Episodic/Chronic Cancer of breast (14 sources) Malignant neoplasm of upper-outer quadrant of female breast; Translations: [Carcinoma of breast ] Onset: 09-03-2014 09-03-2014 Chronic Cardiac dysrhythmias (7 sources) Supraventricular arrhythmia; Translations: [Supraventricular tachycardia] Onset: 04-21-2011 04-21-2011 Chronic Chronic kidney disease (11 sources) Chronic kidney disease stage 3B ; Translations: [Stage 3b chronic kidney disease] Onset: 12-24-2020 12-24-2020 Chronic Complication of device; implant or graft (2 sources) Infection and inflammatory reaction due to other internal joint prosthesis, initial encounter; Translations: [Dislocation of other internal joint prosthesis, initial encounter] Onset: 09-06-2023 Episodic Conduction disorders (20 sources) Automatic implantable cardiac defibrillator in situ; Translations: [Presence of automatic (implantable) cardiac defibrillator] Onset: 08-18-2015 08-18-2015 Chronic Congestive heart failure; nonhypertensive (20 sources) Congestive heart failure; Translations: [Systolic heart failure] Onset: 04-21-2011 04-21-2011 Chronic Disorders of lipid metabolism (18 sources) Hyperlipidemia; Translations: [Hyperlipidemia, unspecified] Onset: 07-17-2006 04-21-2011 Chronic Esophageal disorders (11 sources) Smith's esophagus; Translations: [Smith's esophagus without dysplasia] Onset: 06-24-2020 06-24-2020 Chronic Essential hypertension (20 sources) Hypertensive disorder; Translations: [Benign essential hypertension] Onset: 04-21-2011 04-21-2011 Chronic Genitourinary symptoms and ill-defined conditions (11 sources) Female stress incontinence; Translations: [Stress incontinence (female) (male)] Onset: 05-03-2022 10-29-2005 Chronic Gout and other crystal arthropathies (20 sources) 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; Translations: [Idiopathic chronic gout, right ankle and foot, without tophus (tophi)] Onset: 08-19-2017 08-19-2017 Chronic Heart valve disorders (15 sources) Mitral valve disorder; Translations: [Non-rheumatic mitral regurgitation ] Onset: 04-21-2011 04-21-2011 Chronic Noninfectious gastroenteritis (2 sources) Noninfective gastroenteritis and colitis, unspecified; Translations: [Noninfective gastroenteritis and colitis, unspecified] Onset: 08-14-2023 Episodic Nutritional deficiencies (11 sources) Vitamin D deficiency; Translations: [Vitamin D deficiency, unspecified] Onset: 09-06-2010 09-06-2010 Chronic Osteoarthritis (11 sources) Osteoarthritis of knee; Translations: [Osteoarthritis of knee, unspecified] Onset: 09-06-2010 09-06-2010 Chronic Other and ill-defined heart disease (7 sources) Cardiomegaly; Translations: [Cardiomegaly] Onset: 10-13-2014 10-13-2014 Chronic Other connective tissue disease (1 source) Presence of left artificial shoulder joint; Translations: [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)] Onset: 09-06-2023 Chronic Other connective tissue disease (1 source) Presence of unspecified artificial shoulder joint; Translations: [Unstable reverse total shoulder arthroplasty (HCC)] Onset: 09-06-2023 Chronic Other nervous system disorders (1 source) Other acute postprocedural pain; Translations: [Post-op pain] Onset: 09-06-2023 Episodic Other non-traumatic joint disorders (1 source) Pain in right hip joint; Translations: [Pain in right hip] 06-04-2023 Episodic Other non-traumatic joint disorders (1 source) Pain in right hip; Translations: [Right hip pain] Onset: 06-05-2023 Episodic Other nutritional; endocrine; and metabolic disorders (17 sources) Body mass index (BMI) 33.0-33.9, adult; Translations: [Body mass index (BMI) 34.0-34.9, adult] Onset: 08-01-2013 Resolved: 05-18-2016 05-18-2016 Chronic Other nutritional; endocrine; and metabolic disorders (4 sources) Body mass index (BMI) 34.0-34.9, adult; Translations: [Body mass index (BMI) 34.0-34.9, adult] Onset: 05-07-2015 05-07-2015 Chronic Other nutritional; endocrine; and metabolic disorders (6 sources) Severe obesity; Translations: [Morbid (severe) obesity due to excess calories] Onset: 06-24-2020 06-24-2020 Chronic Other nutritional; endocrine; and metabolic disorders (9 sources) Obese class I; Translations: [Obesity, unspecified] Onset: 10-26-2022 11-02-2022 Chronic Jackie-; endo-; and myocarditis; cardiomyopathy (except that caused by tuberculosis or sexually transmitted disease) (20 sources) Cardiomyopathy in diseases classified elsewhere; Translations: [Dilated cardiomyopathy] Onset: 04-21-2011 04-21-2011 Chronic Pulmonary heart disease (7 sources) Pulmonary hypertension; Translations: [Other secondary pulmonary hypertension] Onset: 10-13-2014 10-13-2014 Chronic Secondary malignancies (11 sources) 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; Translations: [Secondary and unspecified malignant neoplasm of axilla and upper limb lymph nodes] Onset: 10-30-2008 10-30-2008 Chronic Spondylosis; intervertebral disc disorders; other back problems (20 sources) Lumbar spondylosis; Translations: [Spondylosis without myelopathy or radiculopathy, lumbar region] Onset: 12-18-2015 12-18-2015 Chronic Thyroid disorders (18 sources) Iatrogenic hypothyroidism; Translations: [Hypothyroidism] Onset: 07-17-2006 04-21-2011 Chronic Unclassified (7 sources) Finding of serum tumor marker level; Translations: [Other abnormal tumor markers] Onset: 10-06-2016 10-07-2016 Unclassified (7 sources) Malignant neoplasm of female breast; Translations: [Malignant neoplasm of female breast] Onset: 09-08-2014 09-08-2014 Unclassified (4 sources) Long-term drug therapy; Translations: [Other skilled nursing (current) drug therapy] Onset: 04-21-2011 04-21-2011 Unclassified (1 source) NON DISPLACED FX L Onset: 11-17-2023 Past or Other Problems Problem Classification Problem Date Documented Date Episodic/Chronic Abdominal pain (11 sources) Female genital organ symptoms; Translations: [Pelvic and perineal pain] Onset: 08-09-2018 08-09-2018 Episodic Cancer of breast (6 sources) History of malignant neoplasm of breast; Translations: [Personal history of malignant neoplasm of breast] Onset: 07-09-2012 06-13-2017 Episodic Cardiac dysrhythmias (11 sources) Tachycardia; Translations: [Tachycardia, unspecified] Onset: 07-02-2010 07-02-2010 Episodic Conditions associated with dizziness or vertigo (18 sources) Lightheadedness; Translations: [Benign paroxysmal positional vertigo] Onset: 08-13-2008 01-09-2014 Episodic Gastritis and duodenitis (11 sources) Gastritis; Translations: [Gastritis, unspecified, without bleeding] Onset: 04-06-2018 04-06-2018 Episodic Neoplasms of unspecified nature or uncertain behavior (7 sources) Neoplasm of lymph node; Translations: [Secondary and unspecified malignant neoplasm of axilla and upper limb lymph nodes] Onset: 09-03-2014 09-03-2014 Episodic Nonmalignant breast conditions (7 sources) Pain of breast; Translations: [Mastodynia] Onset: 09-29-2016 09-29-2016 Episodic Other aftercare (5 sources) Other skilled nursing (current) drug therapy; Translations: [Other skilled nursing (current) drug therapy] Onset: 04-21-2011 04-21-2011 Episodic Other aftercare (6 sources) Drug therapy finding; Translations: [Other skilled nursing (current) drug therapy] Onset: 06-14-2010 06-14-2010 Episodic Other circulatory disease (7 sources) Low blood pressure; Translations: [Hypotension, unspecified] Onset: 01-09-2014 01-09-2014 Episodic Other connective tissue disease (11 sources) Full thickness rotator cuff tear; Translations: [Complete rotator cuff tear or rupture of right shoulder, not specified as traumatic] Onset: 03-17-2017 03-17-2017 Episodic Other connective tissue disease (1 source) Complete rotator cuff tear or rupture of left shoulder, not specified as traumatic; Translations: [Complete rotator cuff tear or rupture of left shoulder, not specified as traumatic] Onset: 04-08-2023 Episodic Other lower respiratory disease (14 sources) Dyspnea; Translations: [Shortness of breath] Onset: 06-13-2014 10-06-2016 Episodic Other skin disorders (11 sources) Vitiligo; Translations: [Vitiligo] Onset: 07-26-2007 07-26-2007 Episodic Residual codes; unclassified (6 sources) Estrogen receptor positive tumor; Translations: [Estrogen receptor positive status [ER+]] Onset: 01-04-2012 01-04-2012 Episodic Spondylosis; intervertebral disc disorders; other back problems (20 sources) Backache; Translations: [Brachial neuritis] Onset: 06-10-2008 10-06-2016 Episodic Unclassified (6 sources) Implantation of automatic cardiac defibrillator ; Translations: [Presence of automatic (implantable) cardiac defibrillator] Onset: 04-21-2011 Resolved: 01-09-2014 04-21-2011 Results Test Name Value Interpretation Reference Range Facil ity Vital Signs Date Time Vital Sign Value Performing Clinician Lady johnson 08-08-2023 14:40-0400 Heart rate 80 /min Sreedhar Moneypenny PA-C Work Phone: [facility] [employer] 08-08-2023 14:04-0400 Body height 160 cm Sreedhar Moneypenny PA-C Work Phone: [facility] [employer] 08-08-2023 14:04-0400 Body mass index (BMI) [Ratio] 31.25 kg/m2 Sreedhar Moneypenny PA-C Work Phone: [facility] [employer] 08-08-2023 14:04-0400 Body weight 80.02 kg Sreedhar Moneypenny PA-C Work Phone: [facility] [employer] 08-08-2023 14:04-0400 Diastolic blood pressure 50 mm[Hg] Sreedhar Moneypenny PA-C Work Phone: [facility] [employer] 08-08-2023 14:04-0400 SaO2% (BldA) [Mass fraction] 95 % Sreedhar Moneypenny PA-C Work Phone: [facility] [employer] 08-08-2023 14:04-0400 Systolic blood pressure 112 mm[Hg] Sreedhar Moneypenny PA-C Work Phone: [facility] 06-04-2023 13:54-0400 Body temperature 98.8 [degF] Krislyn Aberegg PA Work Phone: [facility] 06-04-2023 13:54-0400 Body weight 80.29 kg Krislyn Aberegg PA Work Phone: [facility] 06-04-2023 13:54-0400 Diastolic blood pressure 66 mm[Hg] Krislyn Aberegg PA Work Phone: [facility] 06-04-2023 13:54-0400 Heart rate 87 /min Krislyn Aberegg PA Work Phone: [facility] 06-04-2023 13:54-0400 Respiratory rate 18 /min Krislyn Aberegg PA Work Phone: [facility] 06-04-2023 13:54-0400 SaO2% (BldA) [Mass fraction] 94 % Krislyn Aberegg PA Work Phone: [facility] 06-04-2023 13:54-0400 Systolic blood pressure 122 mm[Hg] Krislyn Aberegg PA Work Phone: [facility] 03-16-2023 09:12-0400 Diastolic blood pressure 55 mm[Hg] Pacc 4 Work Phone: [facility] 03-16-2023 09:12-0400 Systolic blood pressure 113 mm[Hg] Pacc 4 Work Phone: [facility] 03-16-2023 09:11-0400 Body height 157.5 cm Pacc 4 Work Phone: [facility] 03-16-2023 09:11-0400 Body weight 77.56 kg Pacc 4 Work Phone: [facility] 03-16-2023 09:11-0400 Heart rate 82 /min Pacc 4 Work Phone: [facility] 03-16-2023 09:11-0400 Respiratory rate 20 /min Pacc 4 Work Phone: [facility] 03-16-2023 09:11-0400 SaO2% (BldA) [Mass fraction] 97 % Pacc 4 Work Phone: [facility] 10-04-2022 07:59-0500 Body weight 78.56 kg Pacc 1 Work Phone: [facility] 10-04-2022 07:59-0500 Diastolic blood pressure 47 mm[Hg] Pacc 1 Work Phone: [facility] 10-04-2022 07:59-0500 Heart rate 98 /min Pacc 1 Work Phone: [facility] 10-04-2022 07:59-0500 Respiratory rate 18 /min Pacc 1 Work Phone: [facility] 10-04-2022 07:59-0500 SaO2% (BldA) [Mass fraction] 94 % Pacc 1 Work Phone: [facility] 10-04-2022 07:59-0500 Systolic blood pressure 91 mm[Hg] Pacc 1 Work Phone: [facility] 05-16-2017 13:55-0400 BMI (Body Mass Index) 34.52 kg/m2 [address] [employer] Work Phone: 05-16-2017 13:55-0400 BP Diastolic 68 mm[Hg] Angie Perkins [facility] Work Phone: 05-16-2017 13:55-0400 BP Systolic 100 mm[Hg] Angieenrico Perkins [facility] Work Phone: 05-16-2017 13:55-0400 Pulse (Heart Rate) 80 /min Angie Perkins [facility] Work Phone: 05-16-2017 13:55-0400 Weight 89.81 kg Angieenrico Perkins [facility] Work Phone: 01-12-2017 13:33-0500 BMI (Body Mass Index) 34.52 kg/m2 [address] [employer] [employer] Work Phone: 01-12-2017 13:33-0500 Body Temperature 98.2 [degF] Dee DeFinis [facility] Work Phone: 01-12-2017 13:33-0500 BP Diastolic 63 mm[Hg] [employer] DeFinis [facility] Work Phone: 01-12-2017 13:33-0500 BP Systolic 96 mm[Hg] [facility] Work Phone: 01-12-2017 13:33-0500 BSA (Body Surface Area) 1.94 m2 [employer] DeFinis [facility] Work Phone: 01-12-2017 13:33-0500 Height 161.29 cm Hararnold DeFinis [facility] Work Phone: 01-12-2017 13:33-0500 Pulse (Heart Rate) 74 /min Hararnold DeFinis [facility] Work Phone: 01-12-2017 13:33-0500 Pulse Oximetry 95 % Hararnold DeFinis [facility] Work Phone: 01-12-2017 13:33-0500 Respiratory Rate 16 /min Hararnold DeFinstar [facility] Work Phone: 01-12-2017 13:33-0500 Weight 90 kg Hararnold DeFinis [facility] Work Phone: 01-12-2017 13:33-0500 Weight 89.81 kg Hararnold DeFinstar [facility] Work Phone: 11-17-2016 12:58-0500 Height 161.29 cm Dee DeFinstar [facility] Work Phone: 05-18-2016 13:09-0400 Heart rate 78 /min Dee DeFinstar [facility] Work Phone: 06-13-2014 16:00-0400 Pulse Oximetry 95 % Dee DeFinstar [facility] Work Phone: 06-13-2014 15:56-0400 Heart rate 459 ms Hararnold Harris [facility] Work Phone: Encounters Encounter Date Encounter Type Care Provider Facility Start: 11-17-2023 ambulatory [facility] Facility :[phone] Start: 11-07-2023 End: 11-08-2023 ambulatory [facility] Start: 10-18-2023 End: 10-19-2023 ambulatory [facility] Start: 09-18-2023 Telephone encounter Jeane melo MD Work Phone: [facility] Procedures Date Procedure Procedure Detail Performing Clinician Start: 08-08-2023 Basic metabolic pane l calcium total Sreedhar Moneypenny PA-C Work Phone: Start: 08-08-2023 Drug screen quantita tive digoxin total Sreedhar Moneypenny PA-C Work Phone: Start: 03-16-2023 End: 03-16-2023 Antibody screen Pacc 4 Work Phone: Plan of Treatment Date Care Activity Detail Author Start: 04-13-2026 DIABETES SCREEN DIABETES SCREEN [facility] Start: 03-16-2026 DIABETES SCREEN DIABETES SCREEN [facility] Start: 10-27-2025 DIABETES SCREEN DIABETES SCREEN [facility] Start: 10-04-2025 DIABETES SCREEN DIABETES SCREEN [facility] Start: 08-08-2024 Creatinine measurement Creatinine Level [facility] Start: 08-08-2024 Potassium measurement Potassium Level [facility] Start: 06-04-2024 BP CONTROLLED (<130/80) BP CONTROLLED (<130/80) [facility] Start: 05-09-2024 Creatinine measurement Creatinine Level [facility] Start: 05-09-2024 Potassium measurement Potassium Level [facility] Start: 04-13-2024 HEMOGLOBIN/HEMATOCRIT HEMOGLOBIN/HEMATOCRIT [facility] Start: 04-13-2024 SERUM CREATININE SERUM CREATININE [facility] Start: 03-16-2024 BP CONTROLLED (<130/80) BP CONTROLLED (<130/80) [facility] Start: 03-16-2024 HEMOGLOBIN/HEMATOCRIT HEMOGLOBIN/HEMATOCRIT [facility] Start: 03-16-2024 SERUM CREATININE SERUM CREATININE [facility] Start: 11-08-2023 Creatinine measurement Creatinine Level [facility] Start: 11-08-2023 Potassium measurement Potassium Level [facility] Start: 11-07-2023 End: 11-07-2023 Patient encounter procedure 11/07/2023 1:15 PM EST [facility] [address] [place] [phone] Jeane Campa MD [address] [place] [id number] [address] [facility] Start: 11-07-2023 End: 11-07-2023 Professional / ancillary services management 11/07/2023 12:30 PM EST Ancillary Procedure [facility] [address] [place] [phone] [facility] Start: 10-27-2023 HEMOGLOBIN/HEMATOCRIT HEMOGLOBIN/HEMATOCRIT [facility] Start: 10-27-2023 SERUM CREATININE SERUM CREATININE [facility] Start: 10-04-2023 BP CONTROLLED (<130/80) BP CONTROLLED (<130/80) [facility] Start: 10-04-2023 HEMOGLOBIN/HEMATOCRIT HEMOGLOBIN/HEMATOCRIT [facility] Start: 10-04-2023 SERUM CREATININE SERUM CREATININE [facility] Start: 09-13-2023 End: 09-13-2023 Professional / ancillary services management 09/13/2023 4:30 PM EDT Ancillary Procedure [facility] [address] [place] [id number] [facility] Start: 09-07-2023 End: 08-08-2025 US Heart Transthoracic Transthoracic echocardiogram (TTE) complete with contrast, bubble, strain, and 3D PRN CV Echocardiography Routine Chronic HFrEF (heart failure with reduced ejection fraction) (CMS/HCC) (HCC) Expected: 09/07/2023 (Approximate), Expires: 08/08/2025 [facility] Work Phone: Immunizations Immunization Date Immunization Notes Care Provider [facility] 08-24-2022 Influenza, High-dose Seasonal, Quadrivalent, Preservative Free Jeane Campa MD Work Phone: [facility] 08-24-2022 influenza virus vacc ine, unspecified formulation Jeane Campa MD Work Phone: [facility] 09-14-2021 Influenza, High-dose Seasonal, Quadrivalent, Preservative Free Jeane Campa MD Work Phone: [facility] 03-11-2021 Moderna SARS-CoV-2 Vaccination Jeane Campa MD Work Phone: [facility] 03-11-2021 SARS-CoV-2, Unspecified Arcadio Campa MD Work Phone: [facility] 02-11-2021 Moderna SARS-CoV-2 Vaccination Jeane Campa MD Work Phone: [facility] 02-11-2021 SARS-CoV-2, Unspecified Arcadio Campa MD Work Phone: [facility] 08-24-2020 influenza, high-dose , quadrivalent vaccine (FLUZONE HIGH DOSE QUADRIVALENT) Pacc 1 Work Phone: [facility] 08-27-2019 influenza, high dose seasonal, preservative-free Pacc 1 Work Phone: [facility] 08-18-2018 influenza, high dose seasonal, preservative-free Pacc 1 Work Phone: [facility] 08-19-2017 influenza, high dose seasonal, preservative-free Pacc 1 Work Phone: [facility] 08-12-2016 influenza, high dose seasonal, preservative-free Pacc 1 Work Phone: [facility] 12-18-2015 pneumococcal conjuga te vaccine, 13 valent Pacc 1 Work Phone: [facility] 12-18-2015 zoster vaccine, live Pacc 1 Work Phone: [facility] 08-20-2015 influenza virus vacc ine, unspecified formulation Jeane Campa MD Work Phone: [facility] 08-20-2015 influenza, high dose seasonal, preservative-free Pacc 1 Work Phone: [facility] Work Phone: 08-20-2015 influenza, seasonal, injectable Jeane Campa MD Work Phone: [facility] 08-28-2014 influenza virus vacc ine, unspecified formulation Jeane Campa MD Work Phone: [facility] 08-28-2014 influenza, seasonal, injectable Pacc 1 Work Phone: [facility] Work Phone: 08-09-2013 influenza, injectabl e, quadrivalent, preservative free Jeane Campa MD Work Phone: [facility] 09-06-2010 influenza virus vacc ine, unspecified formulation [facility] 1 Work Phone: [facility] 08-19-2009 influenza virus vacc ine, unspecified formulation [facility] 1 Work Phone: [facility] Work Phone: 09-15-2008 influenza virus vacc ine, unspecified formulation [facility] 1 Work Phone: [facility] Work Phone: 09-19-2007 influenza virus vacc ine, unspecified formulation [facility] [facility] Work Phone: [facility] Work Phone: 08-20-2007 pneumococcal polysaccharide vaccine, 23 valent [facility] Work Phone: [facility] 07-26-2007 pneumococcal polysaccharide vaccine, 23 valent [facility] Work Phone: [facility] 07-26-2007 TD(adult) unspecifie d formulation Jeane Campa MD Work Phone: [facility] 07-26-2007 tetanus and diphther ia toxoids, adsorbed, preservative free, for adult use (2 Lf of tetanus toxoid and 2 Lf of diphtheria toxoid) [facility] Work Phone: [facility] 09-28-2006 influenza virus vacc ine, unspecified formulation [facility] Work Phone: [facility] Work Phone: 09-29-2005 influenza virus vacc ine, unspecified formulation Pac 1 Work Phone: [facility] Work Phone: Payers Date Payer Category Payer Medicare [id number] 2021 Medicare [id number] 1940 Unknown [id number] Social History Date Type Detail Facility Never smoker [facility] Start: 1940 Sex Assigned At Female A [facility] Tobacco smoking stat [facility] Never smoked tobacco [facility] Start: 09-29-2022 End: 06-04-2023 Alcohol intake Current non-drinker of alcohol (finding) [facility] Start: 1940 Sex Assigned At Not on file [facility] Start: 09-24-2022 End: 08-08-2023 Exposure to SARS-CoV-2 (event) Not sure [facility] Start: 02-07-2023 End: 08-08-2023 Alcohol intake Ex-drinker (finding) [facility] Start: 02-07-2023 End: 08-08-2023 History of Social function [facility] Start: 02-07-2023 End: 08-08-2023 Tobacco use panel [facility] National Score (1-10 0), lower number is lower risk 57 [facility] Medical Equipment Procedure Code Equipment Code Equipment Origin al Text Equipment Identifier Dates [id number] [employer] Qu[employer] tro Secure [id number] Start: 01-12-[id number] [id number] Start: 08-21-2014 Head Rsp 32mm -4 mm Offset Glenoid Retain Screw - [id number] Start: 10-26-2022 Stem Humeral Altivate Reverse Small Shell Sz [id number] - [id number] Start: 10-26-2022 Baseplate Rsp P2 30mm Glenoid Sterile - [id number] Start: 10-26-2022 Screw Rsp 5mm 14 mm Bone Lock Glenoid Baseplate Shoulder - [id number] Start: 10-26-2022 Tap 6.5mm Surgic al - [id number] Start: 10-26-2022 Insert Ar Small [id number] Neutral +4 Eplus - [id number] Start: 04-12-2023 Shell Humeral Altivate Reverse Small Shell Sz [id number] - [id number] Start: 04-12-2023 Baseplate Rsp P2 30mm Glenoid Sterile - [id number] Start: 04-12-2023 Screw Rsp 5mm 14 mm Bone Lock Glenoid Baseplate Shoulder - [id number] Start: 04-12-2023 Clinical Notes 05-16-2014 to 11-17-2023 Telephone Encounter - Jeane Campa MD - 09/18/2023 3:43 PM EDTTelephone Encounter - Jeane Campa MD - 09/18/2023 3:43 PM EDTTelephone Encounter - Mervat Kaplan - 09/18/2023 11:59 AM EDT Note Date & Type Note Facility 11-17-2023 Note HNO ID: [id number] Author: Radha Shore RT(R) Service: ? Author Type: Technologist Type: Progress Notes Filed: 11/17/2023 1:09 PM Note Text: Radiology Service Progress Note PATIENT NAME: Desirae Archuleta DATE OF SERVICE: November 17, 2023 TIME: 1:08 PM PATIENT IDENTITY VERIFICATION COMPLETED USING TWO (2) IDENTIFIERS: Name and Date of confirmed by patient verbally. FALL SCREENING: Has the patient had 2 falls in the last year or 1 fall with injury or currently using an Ambulatory Assistive Device (Walker, Cane, Wheelchair, Crutches, etc.)? No PATIENT GENDER DATA: Female. status: : No status: NO. PATIENT RELEVANT IMPLANT DATA REVIEWED: Yes RADIOLOGY DEPARTMENT: CT; Exam(s) Completed: Upper extremity PERIPHERAL IV DATA: Not applicable SIGNED BY: RT Chelo(R) November 17, 2023 1:08 PM [facility] 11-07-2023 Note She has functional m itral regurgitation, last echocardiogram in PACS in August 2023. 3+ on my evaluation. Continue up titration of Entresto, will follow-up symptoms in 6-month intervals. Discussed MitraClip today. [facility] 09-18-2023 Telephone encounter Note Echocardiogram reviewed, done early August 25, 2023 in [place]. Spoke with patient about results. LVEF similar to prior, ~35%. On my review MR is ~3+ (which to me is similar to prior). There is 2+ AI. The amount of RV dilatation and TR has seemed to improve from prior. Overall, she feels clinically stable. 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 No new HF symptoms, some stable ABEL (~NYHA Class 2). All questions answered. Jeane Campa MD Department of Cardiovascular Disease, Division of Heart Failure [facility] [place] 3:52 PM 09/18/23 [facility] 09-18-2023 Miscellaneous Notes Echocardiogram reviewed, done early August 25, 2023 in [place]. Spoke with patient about results. LVEF similar to prior, ~35%. On my review MR is ~3+ (which to me is similar to prior). There is 2+ AI. The amount of RV dilatation and TR has seemed to improve from prior. Overall, she feels clinically stable. 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 No new HF symptoms, some stable ABEL (~NYHA Class 2). All questions answered. Jeane Campa MD Department of Cardiovascular Disease, Division of Heart Failure [facility] [place] 3:52 PM 09/18/23 Look at PACS documented in this encounter [facility] 09-18-2023 Telephone encounter Note Look at PACS [facility] 09-14-2023 Note 09/14/23 1035 [facility] To Home Phone Call Evaluation Does Patient Accept [facility] Program? Yes Does a referral need made to [facility] briefcase sewer/[facility] for additional follow up? Not Applicable Does the patient have a PCP/Specialist follow up appointment? Yes (surgeon on 09/19) Were the patients prescriptions filled? Yes Are there any questions about medications? No Assess if medication regime, dose, time and route are correct by patient No (did not wish to review her meds) Assess if patient has a medication record: Yes Assess need for [place]/Hospice/Homecare: Homecare (homecare in [place]) Assess if DME was delivered: Not Applicable Assess if patient has been to the ER, urgent care, or has been readmitted for any medical Not Applicable Educational and general instruction materials provided: Medication Adherence;Provider Follow-Up;When to return to ED;s/s Infection;When to call MD;When to call 911 Assess how patient is able to take care of self compared to when they were discharged from Spoke with patient who states that she is feeling pretty good. She states that she is not really in any pain just some discomfort when she moves her arm. she states that she still has the bandage on and she will see her doctor next Monday. She states that her arm is in a sling. She states that she has her who has been helping her. She is agreeable to a follow up call next week [facility] 09-12-2023 Note HNO ID: [id number] Author: Lexi Pandya MD Service: Hospital Medicine Author Type: Physician Type: Progress Notes Filed: 09/12/2023 3:01 PM Note Text: INPATIENT PROGRESS NOTE SERVICE DATE: 09/12/2023 SERVICE TIME: 2:59 PM PRIMARY SERVICE: Hospital Medicine CHIEF COMPLAINT: Medical management Subjective Patient denied having fever chills nausea vomiting diarrhea. Current Facility-Administered Medications Medication Dose Route Frequency simvastatin 40 mg tab(s) (ZOCOR) 40 mg ORAL AT BEDTIME allopurinol 300 mg tab(s) (ZYLOPRIM) 300 mg ORAL DAILY levothyroxine 112 mcg tab(s) (SYNTHROID) 112 mcg ORAL DAILY (6 AM) sacubitril-valsartan 49-51 mg 1 tablet (ENTRESTO) 1 tablet ORAL BID dapagliflozin propanediol 10 mg tab(s) (FARXIGA) 10 mg ORAL DAILY WITH BREAKFAST spironolactone 50 mg tab(s) (ALDACTONE) 50 mg ORAL DAILY metoprolol succinate ER 25 mg tab(s) (TOPROL XL) 25 mg ORAL AT BEDTIME torsemide 20 mg tab(s) (DEMADEX) 20 mg ORAL DAILY leflunomide 10 mg tab(s) (ARAVA) 10 mg ORAL DAILY wLUNCH aspirin, enteric coated 325 mg tab(s) 325 mg ORAL BID acetaminophen 1,000 mg tab(s) (TYLENOL) 1,000 mg ORAL q 8 H oxyCODONE IR 5-10 mg tab(s) (ROXICODONE) 5-10 mg ORAL q 3 H PRN HYDROmorphone 0.5 mg injection (DILAUDID) 0.5 mg INTRAVENOUS q 3 H PRN diphenhydrAMINE 25 mg (BENADRYL) 25 mg ORAL q 4 H PRN NaCl 0.9% iv flush bag 20 mL INTRAVENOUS PRN pantoprazole DR 40 mg tab(s) (PROTONIX) 40 mg ORAL DAILY (6 AM) cefTRIAXone 2 g in D5W 100 mL Vial-Bag (ROCEPHIN) 2 g INTRAVENOUS q 24 H lactobacillus rhamnosus 10 billion cell (CULTURELLE) capsule 1 capsule ORAL DAILY budesonide, enteric coated 3 mg cap(s) (ENTOCORT EC) 3 mg ORAL TID ascorbic acid (vitamin C) 500 mg tab(s) (VITAMIN C) 500 mg ORAL DAILY ferric gluconate 125 mg in NaCl 0.9% 100 mL (FERRLECIT) 125 mg INTRAVENOUS DAILY AT 6 PM digoxin 0.125 mg tab(s) (LANOXIN) 0.125 mg ORAL DAILY heparin 5,000 Units injection 5,000 Units SUBCUTANEOUS q 12 H Objective PHYSICAL EXAM: BP 133/51 Pulse 78 Temp (Src) 97.6 (Temporal) Resp 16 Ht 5' 3 (1.60m) Wt 182 lb 8 oz (82.8kg) SpO2 98% BMI 32.34 kg/(m2). O2 Therapy: Room Air General: Patient is alert and is in no acute respiratory distress. Lungs: Clear to auscultation, no wheezing, rales, or rhonchi. Cardiac: S1-S2 within normal limits Abdomen: Soft, nontender, nondistended. Extremities: No cyanosis, left shoulder in sling Skin: No rashes or breakdown. Neurologic: Cranial nerves from II-XII intact grossly. Psych normal affect. DATA: LABORATORY TESTS: CBC: Recent Labs 09/11/23 0406 09/10/23 0624 09/09/23 0438 WBC 6.09 5.60 6.00 HB 8.5* 8.2* 8.6* PLT 192 172 170 MCV 95.6 96.1 96.0 NEUTP 65.4 62.9 66.2 ABSNEUT 3.98 3.53 3.97 LYMPHP 23.0 25.4 21.3 CHEM: Recent Labs 09/11/23 0406 09/10/23 0624 09/09/238 NA 141 140 137 K 4.4 4.3 4.7 CA 8.3* 8.0* 8.0* MG -- 2.3 2.3 ANION 9 6 7 CHLOR 106 107 107 CO2 26 27 23 GLUC 101* 101* 95 BUN 29* 30* 40* CREAT 0.99* 0.97* 1.01* HEPATIC: Recent Labs 09/11/23405 ALT 15 AST 18 TBILI 0.3 ALKPHOS 85 ALB 2.6* TPROT 5.3* URINALYSIS:No results for input(s): SPGR , UBACTERIA , LEUKEST , SSA , UWBC , URBC , UHB , UPROT , UGLUC , UKET in the last 168 hours. Invalid input(s): NITR COAG: No results for input(s): APTT , INR in the last 168 hours. CARDIAC: No results for input(s): CKMB , CKMBP , TROPT , PBNP in the last 168 hours. DATA: Diagnostic tests reviewed for today's visit: Most recent labs and imaging results. Most recent EKG Urine Culture: Positive Micro-30 Days Procedure Component Value Units Date/Time TISSUE CULT + STAIN SURGICAL [[id number]] (Abnormal) Collected: 09/06/23 1612 Order Status: Completed Specimen: Tissue from SHOULDER ARTHROPLASTY LEFT Updated: 09/09/23715 Culture, Tissue Rare Alpha strep, not pneumococcus Comment: Not viable for a sensitivity. Gram Stain Rare Polymorphonuclear leukocytes No organisms seen TISSUE CULT + STAIN SURGICAL [[id number]] (Abnormal) Collected: 09/06/23 1611 Order Status: Completed Specimen: Tissue from SHOULDER ARTHROPLASTY LEFT Updated: 09/09/2316 Culture, Tissue Rare Alpha strep, not pneumococcus Comment: Not viable for a sensitivity. Gram Stain Rare Polymorphonuclear leukocytes No organisms seen ABSCESS AND WOUND CULTURE WITH GRAM STAIN [[id number]] (Abnormal) Collected: 09/06/23 1554 Order Status: Completed Specimen: SYNOVIAL FLUID. Updated: 09/09/23 0715 Culture, Wound Rare Alpha strep, not pneumococcus Comment: Not viable for a sensitivity. Gram Stain Many Polymorphonuclear leukocytes No organisms seen Blood Culture: Positive Micro-30 Days Procedure Component Value Units Date/Time TISSUE CULT + STAIN SURGICAL [[id number]] (Abnormal) Collected: 09/06/23 1612 Order Status: Completed Specimen: Tissue from SHOULDER ARTHROPLASTY LEFT Updated: 09/09/23 0716 (more content not included)... [facility] 09-12-2023 Note HNO ID: [id number] Author: Mary Kate Barboza RN Service: Care Management Author Type: Registered Nurse Type: Care Mgt Progress Note Filed: 09/12/2023 1:59 PM Note Text: CARE MANAGEMENT DISCHARGE NOTE SERVICE DATE: September 12, 2023 SERVICE TIME: 1350 Admission Date: 09/06/2023 LOS: 6 days Discharge Arrangement: Home with [facility] for Mcfp (Picc Care and Lab Draws wkly as ordered) along with Skilled PT/OT. [facility] to deliver Half[facility] IV Atb's. Services Arranged: [facility] and Home Infusion Pharmacy for IV Atb's Provider Name: Caregiver Assessment Transportation Arrangements Handoff Communication: Additional Information: [facility] provided bedside teach this morning with pt, and Dtr. Discharge Information Row Name Admission (Current) from 09/06/2023 in MR 5B MED/SURG Home Health Care Agency [facility] Start of Care 09/13/23 Home Infusion Pharmacy Agency [facility] [place] Phone/ Start of Care 09/12/23 Will D/C to home with care and support from and 2 Dtrs. [facility] to deliver IV Atb's and Picc supplies this evening to pt's home. [facility] will begin SOC at 9am on 09/13/23. Case Closed. SIGNATURE: Mary Kate Barboza RN PATIENT NAME: Desirae Archuleta DATE: September 12, 2023 TIME: 1:55 PM CONTACT #: [phone] [facility] 09-11-2023 Note HNO ID: [id number] Author: Mary Kate Barboza RN Service: Care Management Author Type: Registered Nurse Type: Haylie Mgt Progress Note Filed: 09/11/2023 3:41 PM Note Text: CARE MANAGEMENT PROGRESS NOTE SERVICE DATE: 09/11/2023 SERVICE TIME: 1200 LOS: 5 days Chart Reviewed. Elective Surgery: s/p removal of reverse TSA, IANDD, placement of antibiotic spacer by Dr. Rand ib 09/06/23. Is A/O x4 and usually independent in all ADL's. Lives with Jose Roberto [phone]. Has med and Rx coverage. + PCP. Picc line placed on 09/09/23. ID following and has ordered skilled nursing IV Atb's through 10/18/23. Is agreeable to return home with [facility] and [facility] for IV Atb's. [facility] will be here at 10am on 09/12/23 to complete bedside teach- pt and family aware. [facility] will deliver IV Atb's to her residence tomorrow evening. [facility] will have SOC on Mon09/13/23. Will cont to follow and assist with safe d/c planning. SIGNATURE: Mary Kate Barboza RN PATIENT NAME: Desirae Archuleta DATE: September 11, 2023 TIME: 3:36 PM PAGER/CONTACT #: [phone] [facility] 09-11-2023 Note HNO ID: [id number] Author: Mary Kate Barboza RN Service: Care Management Author Type: Registered Nurse Type: Haylie Mgt Progress Note Filed: 09/11/2023 3:36 PM Note Text: CARE MANAGEMENT PROGRESS NOTE SERVICE DATE: 09/11/2023 SERVICE TIME: 1200 LOS: 5 days [place] of Choice Given: Yes Level of Care Discussed: Home Care;Other: See Comment (Home Infusion Pharmacy) Financial Disclosure Provided: Yes Provider List: Home Care;Other: See Comment (Home Infusion Pharmacy) SIGNATURE: Mary Kate Barboza RN PATIENT NAME: Desirae Archuleta DATE: September 11, 2023 TIME: 3:35 PM PAGER/CONTACT #: [phone] [facility] 09-11-2023 Note HNO ID: [id number] Author: Mary Kate Barboza RN Service: Care Management Author Type: Registered Nurse Type: Care Mgt Progress Note Filed: 09/11/2023 3:35 PM Note Text: CARE MANAGEMENT PROGRESS NOTE SERVICE DATE: 09/11/2023 SERVICE TIME: 1200 LOS: 5 days IMM Follow Up Copy Given: Yes Copy given to:: Patient Method: In Person SIGNATURE: Mary Kate Barboza RN PATIENT NAME: Desirae Archuleta DATE: September 11, 2023 TIME: 3:35 PM PAGER/CONTACT #: [phone] [facility] 09-11-2023 Note HNO ID: [id number] Author: Rd Banks MD Service: Infectious Disease Author Type: Physician Type: Progress Notes Filed: 09/11/2023 1:23 PM Note Text: Infectious Disease Progress Note Subjective: Feeling ok, improved diarrhea, no fever Physical Exam: BP 137/55 Pulse 65 Temp 36.6 ?C (97.9 ?F) (Oral) Resp 16 Ht 160 cm (5' 3 ) Wt 83.5 kg (184 lb) SpO2 95% BMI 32.59 kg/m? Gen: NAD, alert and oriented Heart: RRR, no m/r/g Pulm: CTA bilaterally, no accessory muscle use Abd: soft, NT, ND Skin: no rash, no lesion Results: Hemoglobin (g/dL) Date Value 09/11/2023 8.5 12/23/2020 11.3 Hematocrit (%) Date Value 09/11/2023 26.2 12/23/2020 36.1 HCT (%) Date Value 02/23/2021 36.2 WBC Date Value 09/11/2023 6.09 k/uL 02/23/2021 11.7 K/uL 12/23/2020 8.80 k/uL Glucose Date Value 09/11/2023 101 mg/dL 02/23/2021 99 MG/DL 12/23/2020 89 mg/dL Potassium (mmol/L) Date Value 09/11/2023 4.4 12/23/2020 4.3 K (mmol/L) Date Value 02/23/2021 4.1 Sodium (mmol/L) Date Value 09/11/2023 141 12/23/2020 138 NA (mmol/L) Date Value 02/23/2021 135 Chloride Date Value 09/11/2023 106 mmol/L 02/23/2021 100 MEQ/L 12/23/2020 99 mmol/L CO2 Date Value 09/11/2023 26 mmol/L 02/23/2021 30.0 MEQ/L 12/23/2020 25 mmol/L Creatinine Date Value 09/11/2023 0.99 mg/dL 02/23/2021 1.15 MG/DL 12/23/2020 1.36 mg/dL Imaging reviewed. 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 She is R handed. Developed new onset progressive L shoulder pain, redness, swelling, some chills. No drainage, no new inciting event, no recent abx. Admitted, taken to OR 09/06/[address] Rand for IANDD and spacer placement. Surg cx neg so far, requested lab hold for 14 days. Reports hives with beta lactams in the past. Did receive ancef with her shoulder replacement 03/2023. 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 Will cont to cover with ceftriaxone, monitor for rash or diarrhea. Plan will be for picc and 6 weeks iv abx, stop date 10/18/23 with weekly labs. 5. Stopping vanc today. Will continue to follow Rd Banks MD, MPH [facility] 09-11-2023 Note HNO ID: [id number] Author: Lexi Pandya MD Service: Hospital Medicine Author Type: Physician Type: Progress Notes Filed: 09/11/2023 1:11 PM Note Text: INPATIENT PROGRESS NOTE SERVICE DATE: 09/11/2023 SERVICE TIME: 1:35 PM PRIMARY SERVICE: Hospital Medicine CHIEF COMPLAINT: Medical management Subjective Diarrhea improved, no fever chills nausea vomiting no chest pain or shortness of breath. Current Facility-Administered Medications Medication Dose Route Frequency simvastatin 40 mg tab(s) (ZOCOR) 40 mg ORAL AT BEDTIME allopurinol 300 mg tab(s) (ZYLOPRIM) 300 mg ORAL DAILY levothyroxine 112 mcg tab(s) (SYNTHROID) 112 mcg ORAL DAILY (6 AM) sacubitril-valsartan 49-51 mg 1 tablet (ENTRESTO) 1 tablet ORAL BID dapagliflozin propanediol 10 mg tab(s) (FARXIGA) 10 mg ORAL DAILY WITH BREAKFAST spironolactone 50 mg tab(s) (ALDACTONE) 50 mg ORAL DAILY metoprolol succinate ER 25 mg tab(s) (TOPROL XL) 25 mg ORAL AT BEDTIME torsemide 20 mg tab(s) (DEMADEX) 20 mg ORAL DAILY leflunomide 10 mg tab(s) (ARAVA) 10 mg ORAL DAILY wLUNCH aspirin, enteric coated 325 mg tab(s) 325 mg ORAL BID acetaminophen 1,000 mg tab(s) (TYLENOL) 1,000 mg ORAL q 8 H oxyCODONE IR 5-10 mg tab(s) (ROXICODONE) 5-10 mg ORAL q 3 H PRN HYDROmorphone 0.5 mg injection (DILAUDID) 0.5 mg INTRAVENOUS q 3 H PRN diphenhydrAMINE 25 mg (BENADRYL) 25 mg ORAL q 4 H PRN NaCl 0.9% iv flush bag 20 mL INTRAVENOUS PRN pantoprazole DR 40 mg tab(s) (PROTONIX) 40 mg ORAL DAILY (6 AM) cefTRIAXone 2 g in D5W 100 mL Vial-Bag (ROCEPHIN) 2 g INTRAVENOUS q 24 H lactobacillus rhamnosus 10 billion cell (CULTURELLE) capsule 1 capsule ORAL DAILY budesonide, enteric coated 3 mg cap(s) (ENTOCORT EC) 3 mg ORAL TID ascorbic acid (vitamin C) 500 mg tab(s) (VITAMIN C) 500 mg ORAL DAILY ferric gluconate 125 mg in NaCl 0.9% 100 mL (FERRLECIT) 125 mg INTRAVENOUS DAILY AT 6 PM digoxin 0.125 mg tab(s) (LANOXIN) 0.125 mg ORAL DAILY heparin 5,000 Units injection 5,000 Units SUBCUTANEOUS q 12 H Objective PHYSICAL EXAM: BP 137/55 Pulse 65 Temp (Src) 97.9 (Oral) Resp 16 Ht 5' 3 (1.60m) Wt 184 lb (83.5kg) SpO2 95% BMI 32.60 kg/(m2). O2 Therapy: Room Air General: Patient is alert and is in no acute respiratory distress. Lungs: Clear to auscultation, no wheezing, rales, or rhonchi. Cardiac: S1-S2 within normal limits Abdomen: Soft, nontender, nondistended. Extremities: No cyanosis, left shoulder in sling Skin: No rashes or breakdown. Neurologic: Cranial nerves from II-XII intact grossly. Psych normal affect. DATA: LABORATORY TESTS: CBC: Recent Labs 09/11/2340509/10/2362309/09/23437 WBC 6.09 5.60 6.00 HB 8.5* 8.2* 8.6* PLT 192 172 170 MCV 95.6 96.1 96.0 NEUTP 65.4 62.9 66.2 ABSNEUT 3.98 3.53 3.97 LYMPHP 23.0 25.4 21.3 CHEM: Recent Labs 09/11/2340509/10/2362309/09/23437 NA 141 140 137 K 4.4 4.3 4.7 CA 8.3* 8.0* 8.0* MG -- 2.3 2.3 ANION 9 6 7 CHLOR 106 107 107 CO2 26 27 23 GLUC 101* 101* 95 BUN 29* 30* 40* CREAT 0.99* 0.97* 1.01* HEPATIC: Recent Labs 09/11/23405 ALT 15 AST 18 TBILI 0.3 ALKPHOS 85 ALB 2.6* TPROT 5.3* URINALYSIS:No results for input(s): SPGR , UBACTERIA , LEUKEST , SSA , UWBC , URBC , UHB , UPROT , UGLUC , UKET in the last 168 hours. Invalid input(s): NITR COAG: No results for input(s): APTT , INR in the last 168 hours. CARDIAC: No results for input(s): CKMB , CKMBP , TROPT , PBNP in the last 168 hours. DATA: Diagnostic tests reviewed for today's visit: Most recent labs and imaging results. Most recent EKG Urine Culture: Positive Micro-30 Days Procedure Component Value Units Date/Time TISSUE CULT + STAIN SURGICAL [[id number]] (Abnormal) Collected: 09/06/23 1612 Order Status: Completed Specimen: Tissue from SHOULDER ARTHROPLASTY LEFT Updated: 09/09/23 0716 Culture, Tissue Rare Alpha strep, not pneumococcus Comment: Not viable for a sensitivity. Gram Stain Rare Polymorphonuclear leukocytes No organisms seen TISSUE CULT + STAIN SURGICAL [[id number]] (Abnormal) Collected: 09/06/231610 Order Status: Completed Specimen: Tissue from SHOULDER ARTHROPLASTY LEFT Updated: 09/09/2316 Culture, Tissue Rare Alpha strep, not pneumococcus Comment: Not viable for a sensitivity. Gram Stain Rare Polymorphonuclear leukocytes No organisms seen ABSCESS AND WOUND CULTURE WITH GRAM STAIN [[id number]] (Abnormal) Collected: 09/06/23 1554 Order Status: Completed Specimen: SYNOVIAL FLUID. Updated: 09/09/23714 Culture, Wound Rare Alpha strep, not pneumococcus Comment: Not viable for a sensitivity. Gram Stain Many Polymorphonuclear leukocytes No organisms seen Blood Culture: Positive Micro-30 Days Procedure Component Value Units Date/Time TISSUE CULT + STAIN SURGICAL [[id number]] (Abnormal) Collected: 09/06/231611 Order Status: Completed Specimen: Tissue from SHOULDER ARTHROPLASTY LEFT U (more content not included)... [facility] 09-10-2023 Note HNO ID: [id number] Author: Kevon Hall MD Service: Hospital Medicine Author Type: Physician Type: Progress Notes Filed: 09/10/2023 11:46 AM Note Text: INPATIENT PROGRESS NOTE SERVICE DATE: 09/10/2023 HOSPITAL COURSE: Subjective CHIEF COMPLAINT: Medical managment INTERVAL HPI: Seen and examined today Complaining of minimal left shoulder pain Pending home health care to be arranged then to go home BP 148/61 Pulse 78 Temp 36.8 ?C (98.2 ?F) Resp 16 Ht 160 cm (5' 3 ) Wt 83.5 kg (184 lb) SpO2 94% BMI 32.59 kg/m? Current Outpatient Medications Medication Instructions allopurinol (ZYLOPRIM) 300 mg tablet TAKE ONE TABLET BY MOUTH ONCE DAILY FOR GOUT aspirin, enteric coated (ASPIRIN, ENTERIC COATED) 325 mg, ORAL, 2 TIMES DAILY CALCIUM 600 WITH VITAMIN D3 600 MG-200 UNIT TAB 1 tablet, ORAL, DAILY WITH LUNCH, Last dose 03/29/23 on vitamins/ supplements cefTRIAXone (ROCEPHIN) 2 g, INTRAVENOUS, EVERY 24 HOURS, Stop date 10/18/23 Weekly bmp, cbc, vanc trough, and esr. Fax to [phone] dapagliflozin propanediol (FARXIGA) 10 mg, ORAL, DAILY WITH BREAKFAST digoxin (LANOXIN) 125 mcg, ORAL, EVERY OTHER DAY-AMB, Takes in am leflunomide (ARAVA) 10 mg, ORAL, DAILY WITH LUNCH levothyroxine (SYNTHROID) 88 mcg tablet TAKE ONE TABLET BY MOUTH ONCE DAILY ON EMPTY STOMACH every Mon, Tues, Thurs, Fri, Sat Two tablets every Sun and Wed MEDICATION, NON-DATABASE 300 mg, DAILY WITH LUNCH, Brain Health Support- 2 gummies Last dose 03/29/23 metoprolol tartrate (short acting) (LOPRESSOR) 25 mg, ORAL, AT BEDTIME Btdgupilicpvl-Pg-Pmjm-Minerals (ONE-A-DAY WOMENS FORMULA) 27-0.4 mg ORAL Tab 1 tablet, ORAL, DAILY WITH LUNCH, Last dose 03/29/23 omeprazole (PRILOSEC) 40 mg, ORAL, DAILY sacubitril-valsartan (ENTRESTO) 49-51 mg tablet 1 tablet, ORAL, 2 TIMES DAILY simvastatin (ZOCOR) 40 mg, ORAL, AT BEDTIME spironolactone (ALDACTONE) 50 mg, ORAL, EVERY MORNING torsemide (DEMADEX) 20 mg, ORAL, EVERY MORNING vancomycin (VANCOCIN) 1.25 gram/250 mL in NaCl 0.9% 250 mL 1.25 g, INTRAVENOUS, EVERY 24 HOURS, Stop date 10/18/23 Weekly bmp, cbc, vanc trough, and esr. Fax to [phone] Current Facility-Administered Medications Medication Dose Route Frequency simvastatin 40 mg tab(s) (ZOCOR) 40 mg ORAL AT BEDTIME allopurinol 300 mg tab(s) (ZYLOPRIM) 300 mg ORAL DAILY levothyroxine 112 mcg tab(s) (SYNTHROID) 112 mcg ORAL DAILY (6 AM) sacubitril-valsartan 49-51 mg 1 tablet (ENTRESTO) 1 tablet ORAL BID dapagliflozin propanediol 10 mg tab(s) (FARXIGA) 10 mg ORAL DAILY WITH BREAKFAST spironolactone 50 mg tab(s) (ALDACTONE) 50 mg ORAL DAILY metoprolol succinate ER 25 mg tab(s) (TOPROL XL) 25 mg ORAL AT BEDTIME torsemide 20 mg tab(s) (DEMADEX) 20 mg ORAL DAILY leflunomide 10 mg tab(s) (ARAVA) 10 mg ORAL DAILY wLUNCH aspirin, enteric coated 325 mg tab(s) 325 mg ORAL BID acetaminophen 1,000 mg tab(s) (TYLENOL) 1,000 mg ORAL q 8 H oxyCODONE IR 5-10 mg tab(s) (ROXICODONE) 5-10 mg ORAL q 3 H PRN HYDROmorphone 0.5 mg injection (DILAUDID) 0.5 mg INTRAVENOUS q 3 H PRN diphenhydrAMINE 25 mg (BENADRYL) 25 mg ORAL q 4 H PRN NaCl 0.9% iv flush bag 20 mL INTRAVENOUS PRN pantoprazole DR 40 mg tab(s) (PROTONIX) 40 mg ORAL DAILY (6 AM) vancomycin dosing and monitoring per pharmacy OTHER As Directed cefTRIAXone 2 g in D5W 100 mL Vial-Bag (ROCEPHIN) 2 g INTRAVENOUS q 24 H vancomycin 1.25 g in NaCl 0.9% 250 mL (VANCOCIN) 1.25 g INTRAVENOUS q 24 HR lactobacillus rhamnosus 10 billion cell (CULTURELLE) capsule 1 capsule ORAL DAILY budesonide, enteric coated 3 mg cap(s) (ENTOCORT EC) 3 mg ORAL TID ferrous sulfate 325 mg tab(s) 325 mg ORAL DAILY ascorbic acid (vitamin C) 500 mg tab(s) (VITAMIN C) 500 mg ORAL DAILY ferric gluconate 125 mg in NaCl 0.9% 100 mL (FERRLECIT) 125 mg INTRAVENOUS DAILY AT 6 PM digoxin 0.125 mg tab(s) (LANOXIN) 0.125 mg ORAL DAILY Objective PHYSICAL EXAM: General: Patient is alert and oriented x3 and is in no acute respiratory distress HEENT: Normal cephalic, atraumatic, PERRLA, TM's normal, Nose clear, Mouth normal Neck: Negative hepatojugular reflux or jugular venous distention, negative carotid bruit. Lungs: Clear to auscultation, no wheezing, rales, or rhonchi. Cardiac: Regular rhythm and rate, S1-S2 within normal limits, no murmurs, gallops were appreciated, no rubs. Abdomen: Soft, nontender, nondistended, no HSM detected, bowel sounds are active. Extremities: Shoulder wound is covered [No edema, cyanosis, or clubbing. Skin: No rashes or breakdown. Musculoskeletal: normal MS exam, moves all extremities, DTR's normal Lymphatic: Negative cervical, supra-clavicular, groin lymphadenopathy. Neurologic: Cranial nerves from II-XII intact grossly, no focal deficits. Psychiatry: Normal affect. Glucose Date Value 09/10/2023 101 mg/dL 02/23/2021 99 MG/DL 12/23/2020 89 mg/dL Potassium (mmol/L) Date Value 09/10/2023 4.3 12/23/2020 4.3 K (mmol/L) (more content not included)... [facility] 09-10-2023 Note HNO ID: [id number] Author: Nina Gilmore MD Service: Orthopaedic Surgery Author Type: Physician Type: Progress Notes Filed: 09/10/2023 11:45 AM Note Text: Orthopaedic INPATIENT PROGRESS NOTE PRIMARY SERVICE: Orthopaedic INTERVAL HPI:Patient is sitting up in a chair, has minimal pain. PICC line is in MEDICATIONS: Current Facility-Administered Medications Medication Dose Route Frequency simvastatin 40 mg tab(s) (ZOCOR) 40 mg ORAL AT BEDTIME allopurinol 300 mg tab(s) (ZYLOPRIM) 300 mg ORAL DAILY levothyroxine 112 mcg tab(s) (SYNTHROID) 112 mcg ORAL DAILY (6 AM) sacubitril-valsartan 49-51 mg 1 tablet (ENTRESTO) 1 tablet ORAL BID dapagliflozin propanediol 10 mg tab(s) (FARXIGA) 10 mg ORAL DAILY WITH BREAKFAST spironolactone 50 mg tab(s) (ALDACTONE) 50 mg ORAL DAILY metoprolol succinate ER 25 mg tab(s) (TOPROL XL) 25 mg ORAL AT BEDTIME torsemide 20 mg tab(s) (DEMADEX) 20 mg ORAL DAILY leflunomide 10 mg tab(s) (ARAVA) 10 mg ORAL DAILY wLUNCH aspirin, enteric coated 325 mg tab(s) 325 mg ORAL BID acetaminophen 1,000 mg tab(s) (TYLENOL) 1,000 mg ORAL q 8 H oxyCODONE IR 5-10 mg tab(s) (ROXICODONE) 5-10 mg ORAL q 3 H PRN HYDROmorphone 0.5 mg injection (DILAUDID) 0.5 mg INTRAVENOUS q 3 H PRN diphenhydrAMINE 25 mg (BENADRYL) 25 mg ORAL q 4 H PRN NaCl 0.9% iv flush bag 20 mL INTRAVENOUS PRN pantoprazole DR 40 mg tab(s) (PROTONIX) 40 mg ORAL DAILY (6 AM) vancomycin dosing and monitoring per pharmacy OTHER As Directed cefTRIAXone 2 g in D5W 100 mL Vial-Bag (ROCEPHIN) 2 g INTRAVENOUS q 24 H vancomycin 1.25 g in NaCl 0.9% 250 mL (VANCOCIN) 1.25 g INTRAVENOUS q 24 HR lactobacillus rhamnosus 10 billion cell (CULTURELLE) capsule 1 capsule ORAL DAILY budesonide, enteric coated 3 mg cap(s) (ENTOCORT EC) 3 mg ORAL TID ferrous sulfate 325 mg tab(s) 325 mg ORAL DAILY ascorbic acid (vitamin C) 500 mg tab(s) (VITAMIN C) 500 mg ORAL DAILY ferric gluconate 125 mg in NaCl 0.9% 100 mL (FERRLECIT) 125 mg INTRAVENOUS DAILY AT 6 PM digoxin 0.125 mg tab(s) (LANOXIN) 0.125 mg ORAL DAILY LABS: Recent Labs 09/10/23 0624 09/09/23 0438 WBC 5.60 6.00 HB 8.2* 8.6* HCT 24.9* 26.4* PLT 172 170 NA 140 137 K 4.3 4.7 CHLOR 107 107 CO2 27 23 BUN 30* 40* CREAT 0.97* 1.01* GLUC 101* 95 CA 8.0* 8.0* MG 2.3 2.3 PHYSICAL EXAM: BP 148/61 Pulse 78 Temp 36.8 ?C (98.2 ?F) Resp 16 Ht 160 cm (5' 3 ) Wt 83.5 kg (184 lb) SpO2 94% BMI 32.59 kg/m? Body mass index is 32.59 kg/m?. General appearance: well appearing, alert, and in no acute distress Extremities: LUE dressing is clean and dry, sling is on, LUE NVID ASSESSMENT AND PLAN: I have seen and examined the patient and are managing the following conditions: POD 4 s/p I and D and atbx spacer placement. Pt is awaiting SNF for skilled nursing atbx, she is on Vancomycin and Ceftriaxone. Cx positive for alpha hemolytic strep, appreciate ID input. SIGNATURE: Nina Gilmore MD DATE of SERVICE: 09/10/2023 TIME of SERVICE: 11:37 AM [facility] 09-09-2023 Note HNO ID: [id number] Author: Lexi Pandya MD Service: Hospital Medicine Author Type: Physician Type: Progress Notes Filed: 09/09/2023 3:41 PM Note Text: INPATIENT PROGRESS NOTE SERVICE DATE: 09/09/2023 SERVICE TIME: 3:35 PM PRIMARY SERVICE: Hospital Medicine CHIEF COMPLAINT: Medical management Subjective Diarrhea improved, no fever chills nausea vomiting no chest pain or shortness of breath. Current Facility-Administered Medications Medication Dose Route Frequency simvastatin 40 mg tab(s) (ZOCOR) 40 mg ORAL AT BEDTIME allopurinol 300 mg tab(s) (ZYLOPRIM) 300 mg ORAL DAILY levothyroxine 112 mcg tab(s) (SYNTHROID) 112 mcg ORAL DAILY (6 AM) sacubitril-valsartan 49-51 mg 1 tablet (ENTRESTO) 1 tablet ORAL BID dapagliflozin propanediol 10 mg tab(s) (FARXIGA) 10 mg ORAL DAILY WITH BREAKFAST spironolactone 50 mg tab(s) (ALDACTONE) 50 mg ORAL DAILY metoprolol succinate ER 25 mg tab(s) (TOPROL XL) 25 mg ORAL AT BEDTIME torsemide 20 mg tab(s) (DEMADEX) 20 mg ORAL DAILY leflunomide 10 mg tab(s) (ARAVA) 10 mg ORAL DAILY wLUNCH aspirin, enteric coated 325 mg tab(s) 325 mg ORAL BID acetaminophen 1,000 mg tab(s) (TYLENOL) 1,000 mg ORAL q 8 H oxyCODONE IR 5-10 mg tab(s) (ROXICODONE) 5-10 mg ORAL q 3 H PRN HYDROmorphone 0.5 mg injection (DILAUDID) 0.5 mg INTRAVENOUS q 3 H PRN diphenhydrAMINE 25 mg (BENADRYL) 25 mg ORAL q 4 H PRN NaCl 0.9% iv flush bag 20 mL INTRAVENOUS PRN pantoprazole DR 40 mg tab(s) (PROTONIX) 40 mg ORAL DAILY (6 AM) vancomycin dosing and monitoring per pharmacy OTHER As Directed cefTRIAXone 2 g in D5W 100 mL Vial-Bag (ROCEPHIN) 2 g INTRAVENOUS q 24 H vancomycin 1.25 g in NaCl 0.9% 250 mL (VANCOCIN) 1.25 g INTRAVENOUS q 24 HR lactobacillus rhamnosus 10 billion cell (CULTURELLE) capsule 1 capsule ORAL DAILY budesonide, enteric coated 3 mg cap(s) (ENTOCORT EC) 3 mg ORAL TID ferrous sulfate 325 mg tab(s) 325 mg ORAL DAILY ascorbic acid (vitamin C) 500 mg tab(s) (VITAMIN C) 500 mg ORAL DAILY Objective PHYSICAL EXAM: BP 149/81 Pulse 93 Temp (Src) 97.2 (Oral) Resp 18 Ht 5' 3 (1.60m) Wt 176 lb 11.2 oz (80.2kg) SpO2 97% BMI 31.31 kg/(m2). O2 Therapy: Room Air General: Patient is alert and is in no acute respiratory distress. Lungs: Clear to auscultation, no wheezing, rales, or rhonchi. Cardiac: S1-S2 within normal limits Abdomen: Soft, nontender, nondistended. Extremities: No cyanosis, left shoulder in sling Skin: No rashes or breakdown. Neurologic: Cranial nerves from II-XII intact grossly. Psych normal affect. DATA: LABORATORY TESTS: CBC: Recent Labs 09/09/23 0438 09/07/23 0506 WBC 6.00 -- HB 8.6* 10.1* PLT 170 -- MCV 96.0 -- NEUTP 66.2 -- ABSNEUT 3.97 -- LYMPHP 21.3 -- CHEM: Recent Labs 09/09/23 0438 09/06/23 1326 NA 137 138 K 4.7 4.5 CA 8.0* 8.8 MG 2.3 -- ANION 7 7 CHLOR 107 104 CO2 23 27 GLUC 95 102* BUN 40* 29* CREAT 1.01* 0.99* HEPATIC: No results for input(s): ALT , AST , TBILI , ALKPHOS , ALB , TPROT , LIPASE in the last 168 hours. URINALYSIS:No results for input(s): SPGR , UBACTERIA , LEUKEST , SSA , UWBC , URBC , UHB , UPROT , UGLUC , UKET in the last 168 hours. Invalid input(s): NITR COAG: No results for input(s): APTT , INR in the last 168 hours. CARDIAC: No results for input(s): CKMB , CKMBP , TROPT , PBNP in the last 168 hours. DATA: Diagnostic tests reviewed for today's visit: Most recent labs and imaging results. Most recent EKG Urine Culture: Positive Micro-30 Days Procedure Component Value Units Date/Time TISSUE CULT + STAIN SURGICAL [[id number]] (Abnormal) Collected: 09/06/231611 Order Status: Completed Specimen: Tissue from SHOULDER ARTHROPLASTY LEFT Updated: 09/09/23715 Culture, Tissue Rare Alpha strep, not pneumococcus Comment: Not viable for a sensitivity. Gram Stain Rare Polymorphonuclear leukocytes No organisms seen TISSUE CULT + STAIN SURGICAL [[id number]] (Abnormal) Collected: 09/06/23 161 Order Status: Completed Specimen: Tissue from SHOULDER ARTHROPLASTY LEFT Updated: 09/09/23715 Culture, Tissue Rare Alpha strep, not pneumococcus Comment: Not viable for a sensitivity. Gram Stain Rare Polymorphonuclear leukocytes No organisms seen ABSCESS AND WOUND CULTURE WITH GRAM STAIN [[id number]] (Abnormal) Collected: 09/06/23 155 Order Status: Completed Specimen: SYNOVIAL FLUID. Updated: 09/09/23714 Culture, Wound Rare Alpha strep, not pneumococcus Comment: Not viable for a sensitivity. Gram Stain Many Polymorphonuclear leukocytes No organisms seen Blood Culture: Positive Micro-30 Days Procedure Component Value Units Date/Time TISSUE CULT + STAIN SURGICAL [[id number]] (Abnormal) Collected: 09/06/231611 Order Status: Completed Specimen: Tissue from SHOULDER ARTHROPLASTY LEFT Updated: 09/09/23715 Culture, Tissue Rare Alpha strep, not pneumococcus Comment: Not viable for a sensitivity. (more content not included)... [facility] 09-09-2023 Note HNO ID: [id number] Author: Paris Bashir RN Service: PICC Team Author Type: Registered Nurse Type: Procedures Filed: 09/09/2023 12:01 PM Note Text: PICC NURSE INSERTION NOTE DATE OF PROCEDURE: September 09, 2023 TIME OF PROCEDURE: 1120 ORDERING PHYSICIAN: Dr Banks INFORMED CONSENT: Obtained per hospital policy. INDICATION FOR LINE PLACEMENT: IV access COPAT CONDITION OF LINE PLACEMENT: Sterile PRIMARY PROCEDURALIST: Narciso Marshall RN PERSONNEL MANAGER: Paris Bashir RN PRE-PROCEDURE REVIEW ALLERGIES Allergen Reactions Augmentin [Amoxicil* Diarrhea Tolerated cefazolin and ceftriaxone at [facility] in 08/2023 Keflex [Cephalexin] Rash Hand and buttocks Tolerated cefazolin and ceftriaxone at [facility] in 08/2023 [place] [Hydrocodone-* Vomiting Taxol [Paclitaxel] Anaphylatic Reaction, went to 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 Final Comment: Estimated Glomerular Filtration Rate (eGFR) is calculated using the 2020 CKD-EPI creatinine equation. This equation utilizes serum creatinine, sex, and age as parameters. The creatinine assay has traceable calibration to isotope dilution-mass spectrometry. Refer to KDIGO guidelines for clinical interpretation. In patients with unstable renal function, e.g. those with acute kidney injury, the eGFR may not accurately reflect actual GFR. eGFR- Date Value Ref Range Status 12/23/2020 46 Final History of Renal Disease: No Ultrasound Assessment Complete: Yes PROCEDURE NARRATIVE SAFE PRACTICE Hand Hygiene per Hospital Policy: Yes Skin Preparation Unit Dose Applicator Used: Chloraprep (CHG + alcohol), allowed to dry. Procedure Surface Cleansed with Antimicrobial Wipes: Yes Barriers Used by Proceduralist and all Assisting Personnel: Yes UNIVERSAL PROTOCOL / SAFETY CHECKLIST Procedure to be Performed: PICC insertion Sign In: A Moment of CARE was completed. Personnel directly involved with the procedure wore the appropriate PPE (Personal Protective Equipment). No special equipment needed. Patient/Surrogate Stated/Verified: PATIENT VERIFIED(optional for EMERGENT procedures): Patient name, Date of , Relevant allergies, and The intended procedure Time Out Communication: Intended patient and procedure match the source documents. Consent documented and matches the intended procedure. Relevant labs, photos, and/or imaging studies have been reviewed. Correct side/site marked and visible. Medications required for procedure verified. No fire risk assessment and interventions applicable. No implant(s) inserted. Sign Out: SIGN OUT (optional for EMERGENT procedures): No specimen collected. Paris Bashir RN CATHETER PLACEMENT Brand: [id number] Lot: [id number] Number of Lumens: 2 Type of PICC: Power Injectable PICC Lumen Size: 5 [place] PLACEMENT TECHNIQUE Lidocaine: Yes, Lidocaine 1% Volume 2 mL Subcutaneous Modified Seldinger Technique Used to Place Line via the Right Brachial Ultrasound Guidance: Yes Number of Attempts at Insertion: 2 veins attempted, 2 passes and 1 venipuncture Ensured control of guidewire during all aspects of the procedure: Yes Accounted for entire guidewire upon removal: Yes Internal Length: 37 cm External Length: 0 cm Trim Length: 37 cm Mid-Arm Circumference: 35.5 centimeters Post Insertion Pain Level Related to Procedure: 0 Action Taken to Address Pain: None needed Verified Placement: Blood return and flushes with ease and Tip location system or device indicates the tip is located in the SVC/CAJ. Line was Flushed with 10 mL normal saline each lumen Line Secured with: Securement device Sterile Dressing Applied and Dated: Yes Sterile Caps on all Ports Prior to Leaving Procedure Area: Yes, Disinfection caps applied SPECIMENS: None COMPLICATIONS: None Patient Education Materials: Placed in chart [facility] Line Insertion checklist was utilized during this procedure. QUESTIONS or PROBLEMS: Call [employer] [facility] Nurse SIGNATURE: Paris Bashir RN PATIENT NAME: Desirae Archuleta DATE: September 09, 2023 TIME: 11:58 AM PAGER/CONTACT PHONE: [facility] 09-09-2023 Note HNO ID: [id number] Author: Juanjose Pa DO Service: Orthopaedic Surgery Author Type: Physician Type: Progress Notes Filed: 09/09/2023 10:17 AM Note Text: ORTHOPAEDIC POSTOP PROGRESS NOTE SERVICE DATE: 09/09/2023 SERVICE TIME: 10:12 AM Principal Diagnosis: Left shoulder periprosthetic joint infection Subjective INTERVAL HPI: Ms. Archuleta reports pain is well controlled. Has been compliant with immobilization and limited motion Objective Patient Vitals for the past 24 hrs: BP Temp Temp src Pulse Resp SpO2 Weight 09/09/23 0743 (!) 108/44 (!) 35.8 ?C (96.5 ?F) Temporal 86 17 97 % -- 09/09/23 0259 104/59 36.7 ?C (98.1 ?F) Temporal 72 17 93 % -- 09/09/23 0023 -- -- -- -- -- -- 80.2 kg (176 lb 11.2 oz) 09/08/23 2330 112/53 36.4 ?C (97.5 ?F) Oral 73 20 94 % -- 09/08/232054 104/58 36.8 ?C (98.2 ?F) Temporal 97 18 97 % -- 09/08/23 1435 (!) 116/44 36.7 ?C (98 ?F) Oral 87 16 93 % -- Intake/Output Summary (Last 24 hours) at 09/09/2023 1012 Last data filed at 09/09/2023 0259 Gross per 24 hour Intake 840 ml Output -- Net 840 ml Left upper extremity: Immobilized in a sling. Dressing clean dry and intact. Mild swelling. Axillary nerve sensation intact. Neurovascularly intact distally. 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 Continue current medications - Encourage aggressive IS - PT/OT --> WB status: NWB LUE - No shoulder motion - Encourage out of sling activity 4-6x daily for active/passive elbow/wrist ROM exercises only - Cultures showing alpha strep. - ID following - continue vanc/ceftriaxone. Plan for PICC line and long-term IV antibiotics - No dressing change unless saturated - Continue recommendations from internal medicine - DVT ppx: SCDs; Ambulation; ASA 325 BID x 2 weeks - Dispo: Await PT recs --> appropriate d/c dispo when okay with infectious disease Resolved Problems: * No resolved hospital problems. * Medication and Non-Pharmacologic VTE Prophylaxis/Anticoagulants Anticoagulant AND Antiplatelet Medications (From admission, onward) Start Dose Route Frequency Last Action Ordered Stop 09/06/232099 aspirin, enteric coated 325 mg tab(s) 325 mg ORAL 2 TIMES DAILY Given, 09/09 0743 09/06/23 1832 -- 09/06/23 184 vte current anticoag therapy (ca,me) 09/06/23 184 pneumatic compression stockings (ca,me) 09/06/23 184 activity - mobilize patient ([place], [place]) VTE Prophylaxis: VTE prophylaxis appropriate SIGNATURE: Juanjose Pa DO PATIENT NAME: Desirae Archuleta DATE: September 09, 2023 TIME: 10:12 AM ETX#[id number] [facility] 09-08-2023 Note HNO ID: [id number] Author: Adithya, Ricardo, RN Service: Care Management Author Type: Registered Nurse Type: Care Mgt Initial Assessment Filed: 09/08/2023 5:36 PM Note Text: CARE MANAGEMENT: ASSESSMENT AND DISCHARGE PLAN SERVICE DATE: September 08, 2023 SERVICE TIME: 4:43 PM PCP: Marquis Harden MD Primary Contact: Extended Emergency Contact Information Primary Emergency Contact: Jose Roberto Archuleta Address: [address] [place] [address] [address], [id number] [place] [address] Relation: Spouse Admission Status: Inpatient Insurance Provider: [place]ARE Discharge Planning requested by: Per Department Practice Potential Transition Plans Home Care Advance Directives Current Advance Directive: None Budget Officer Attempted to Assist with AD Completion: Yes Action: Patient Unwilling Current Living Arrangements and Support Lives with: Spouse/significant other Type of Residence: Private Residence (House) Does the patient have to climb stairs at home?: stairs outside the home Support: Spouse/significant other How do you manage to accomplish the following: Independent: Ambulation;Bathe/Shower;Dress;Me als/Meal Prep;Going to the bathroom;Medication Management Dependent: Transportation to appointments/community Current Services/Equipment Current Post-Acute Service(s): DME Current DME Type: Rollator Scooter, Cane, Rolling walker Discharge Planning Patient Goal(s): Better mobility, General wellness, Be able to go home [place] [facility] Explained: Are you interested in bedside delivery of your medications? No Discharge Planning Participant(s): Patient Patient/Family Comments: Caregiver Assessment: Caregiver is ready, willing and able to meet the patient's needs as recommended by the inter-professional team: No Caregiver needed Transport at Discharge: Transportation Arrangements: Car Needs Prior to Discharge: Needs Prior to Discharge: IV Antibiotics Post-Acute Discharge Plan: Chart reviewed. Patient admitted for Left shoulder joint infection. Patient lives at home with spouse and is normally independent. She does have a walker, cane, and rollator if needed but was not currently using. She is current with PCP and has prescription coverage. Her goal is to return home and she will have a ride. She will need LTA IV. Sent referrals to patient choices of [facility] and [facility]. Will need accepting HHC and pharmacy and RADHA orders, PICC line, And Lab orders. CM to follow up and assist with discharge plans. SIGNATURE: Ricardo Haji RN PATIENT NAME: Desirae Archuleta DATE: September 08, 2023 TIME: 4:42 PM CONTACT #: [phone] [facility] 09-08-2023 Note HNO ID: [id number] Author: Rd Banks MD Service: Infectious Disease Author Type: Physician Type: Progress Notes Filed: 09/08/2023 2:17 PM Note Text: Infectious Disease Progress Note Subjective: Feeling ok, some diarrhea, no fever Physical Exam: BP (!) 97/44 Pulse 67 Temp 36.4 ?C (97.5 ?F) (Oral) Resp 18 Ht 160 cm (5' 3 ) Wt 75.9 kg (167 lb 4.8 oz) SpO2 94% BMI 29.64 kg/m? Gen: NAD, alert and oriented Heart: RRR, no m/r/g Pulm: CTA bilaterally, no accessory muscle use Abd: soft, NT, ND Skin: no rash, no lesion Results: Hemoglobin (g/dL) Date Value 09/07/2023 10.1 12/23/2020 11.3 Hematocrit (%) Date Value 09/07/2023 30.5 12/23/2020 36.1 HCT (%) Date Value 02/23/2021 36.2 WBC Date Value 03/16/2023 9.45 k/uL 02/23/2021 11.7 K/uL 12/23/2020 8.80 k/uL Glucose Date Value 09/06/2023 102 mg/dL 02/23/2021 99 MG/DL 12/23/2020 89 mg/dL Potassium (mmol/L) Date Value 09/06/2023 4.5 12/23/2020 4.3 K (mmol/L) Date Value 02/23/2021 4.1 Sodium (mmol/L) Date Value 09/06/2023 138 12/23/2020 138 NA (mmol/L) Date Value 02/23/2021 135 Chloride Date Value 09/06/2023 104 mmol/L 02/23/2021 100 MEQ/L 12/23/2020 99 mmol/L CO2 Date Value 09/06/2023 27 mmol/L 02/23/2021 30.0 MEQ/L 12/23/2020 25 mmol/L Creatinine Date Value 09/06/2023 0.99 mg/dL 02/23/2021 1.15 MG/DL 12/23/2020 1.36 mg/dL Imaging reviewed. 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 She is R handed. Developed new onset progressive L shoulder pain, redness, swelling, some chills. No drainage, no new inciting event, no recent abx. Admitted, taken to OR 09/06/[address] Rand for IANDD and spacer placement. Surg cx neg so far, requested lab hold for 14 days. Reports hives with beta lactams in the past. Did receive ancef with her shoulder replacement 03/2023. 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 Will cont to cover empirically with vanc/ceftriaxone, monitor for rash or diarrhea. Plan will be for picc and 6 weeks iv abx, stop date 10/18/23 with weekly labs. With diarrhea and h/o cdiff, will test. Will continue to follow Rd Banks MD, MPH [facility] 09-08-2023 Note HNO ID: [id number] Author: Gilberto Rand DO Service: Orthopaedic Surgery Author Type: Physician Type: Progress Notes Filed: 09/08/2023 5:26 AM Note Text: Orthopaedic Shoulder Surgery Progress Note PATIENT NAME: Desirae Archuleta Surgeon: Gilberto Rand DO Operation: Removal of reverse TSA, IANDD, placement antibiotic spacer S/24hr events: Patient seen in POD # 2. Awake and alert. Pain well controlled. Denies N/V/CP/SOB. Afebrile. No acute events overnight. Having some loose stools overnight, history of colitis recently. We will ask sound to take a look at the patient. A/P: 83 year old y/o Female POD 1 s/p the above procedure, doing well: - Pain control --> PO narcotics + breakthrough prn IV medications; Block in place - Encourage aggressive IS - Saline lock IV once tolerating PO - PT/OT consults --> WB status: NWB LUE - No shoulder motion - Encourage out of sling activity 4-6x daily for active/passive elbow/wrist ROM exercises only - Broad Spectrum antibiotics - ID - Leinenger - PICC , vanc/ceftriaxone - No dressing change unless saturated - Medicine consult - DVT ppx: SCDs; Ambulation; ASA 325 BID x 2 weeks - Dispo: Await PT recs --> appropriate d/c dispo when okay with infectious disease BP 102/50 Pulse 82 Temp 36.6 ?C (97.8 ?F) (Oral) Resp 20 Ht 160 cm (5' 3 ) Wt 75.9 kg (167 lb 4.8 oz) SpO2 95% BMI 29.64 kg/m? EXAM Shoulder immobilizer/Sling in place Shoulder dressing c/d/i; no drainage noted, appropriate incisional tenderness. Motor function impaired by block Sensation diminished secondary to block - axillary, radial, median, ulnar nerve distributions ROM deferred 2+ radial pulse; Fingers pink, warm, well-perfused Brachium/Antebrachium/Hand compartments soft SCDs in place Labs: Hemoglobin (g/dL) Date Value 09/07/2023 10.1 12/23/2020 11.3 Hematocrit (%) Date Value 09/07/2023 30.5 12/23/2020 36.1 HCT (%) Date Value 02/23/2021 36.2 WBC Date Value 03/16/2023 9.45 k/uL 02/23/2021 11.7 K/uL 12/23/2020 8.80 k/uL Glucose Date Value 09/06/2023 102 mg/dL 02/23/2021 99 MG/DL 12/23/2020 89 mg/dL Potassium (mmol/L) Date Value 09/06/2023 4.5 12/23/2020 4.3 K (mmol/L) Date Value 02/23/2021 4.1 Sodium (mmol/L) Date Value 09/06/2023 138 12/23/2020 138 NA (mmol/L) Date Value 02/23/2021 135 Chloride Date Value 09/06/2023 104 mmol/L 02/23/2021 100 MEQ/L 12/23/2020 99 mmol/L CO2 Date Value 09/06/2023 27 mmol/L 02/23/2021 30.0 MEQ/L 12/23/2020 25 mmol/L Creatinine Date Value 09/06/2023 0.99 mg/dL 02/23/2021 1.15 MG/DL 12/23/2020 1.36 mg/dL BUN Date Value 09/06/2023 29 mg/dL 02/23/2021 34 MG/DL 12/23/2020 35 mg/dL Anion Gap (mmol/L) Date Value 09/06/2023 7 12/23/2020 14 Calcium (mg/dL) Date Value 02/23/2021 8.7 12/23/2020 9.7 Calcium, Total (mg/dL) Date Value 09/06/2023 8.8 Gilberto Rand DO Orthopedic Shoulder AND Elbow Surgeon Office phone: [phone] September 07, 2023 7:25 AM [facility] 09-07-2023 Note HNO ID: [id number] Author: Gilberto Rand DO Service: Orthopaedic Surgery Author Type: Physician Type: Progress Notes Filed: 09/07/2023 7:28 AM Note Text: Orthopaedic Shoulder Surgery Progress Note PATIENT NAME: Desirae Archuleta Surgeon: Gilberto Rand DO Operation: Removal of reverse TSA, IANDD, placement antibiotic spacer S/24hr events: Patient seen in POD # 1. Awake and alert. Pain well controlled. Denies N/V/CP/SOB. Afebrile. No acute events overnight. A/P: 83 year old y/o Female POD 1 s/p the above procedure, doing well: - Pain control --> PO narcotics + breakthrough prn IV medications; Block in place - Encourage aggressive IS - Saline lock IV once tolerating PO - PT/OT consults --> WB status: NWB LUE - No shoulder motion, pendulums OK - Encourage out of sling activity 4-6x daily for active/passive elbow/wrist ROM exercises only - Broad Spectrum antibiotic - ID - Leinenger - will likely need PICC, await recs - No dressing change unless saturated - DVT ppx: SCDs; Ambulation; ASA 325 BID x 2 weeks - Dispo: Await PT recs --> appropriate d/c dispo when cultures final BP 120/64 Pulse 84 Temp 36.7 ?C (98.1 ?F) (Oral) Resp 24 Ht 160 cm (5' 3 ) Wt 75.9 kg (167 lb 4.8 oz) SpO2 95% BMI 29.64 kg/m? EXAM Shoulder immobilizer/Sling in place Shoulder dressing c/d/i; no drainage noted, appropriate incisional tenderness. Motor function impaired by block Sensation diminished secondary to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 hold 3 day pre-op If you have any medication changes between receiving these instructions and your surgery date, please provide this updated information with the nurse who calls you the week day prior to your surgical procedure so we can update your list and provide you with updated instructions for the morning of your procedure. documented in this encounter [facility] 10-04-2022 History of Presen t illness Narrative Summary: dos meds PATIENT MEDICATION INSTRUCTIONS Please read below carefully for your personalized instructions. Medications: If you are on blood thinner or anticoagulants including aspirin, please confirm with your surgical team on when to stop these medications. Unless instructed differently by your surgical team, stay on all of your medications until your surgery. Pre-Surgery Med Instructions Medication Instructions sacubitril-valsartan (ENTRESTO) 49-51 mg tablet Do not take the morning of surgery dapagliflozin (FARXIGA) 10 mg tablet Do not take the morning of surgery spironolactone (ALDACTONE) 25 mg tablet Do not take the morning of surgery digoxin (LANOXIN) 125 mcg (0.125 mg) tablet Take morning of surgery with a sip of water, no other fluids metoprolol tartrate, short acting, (LOPRESSOR) 25 mg tablet Take morning of surgery with a sip of water, no other fluids fluticasone (FLONASE) 50 mcg/actuation nasal spray Take morning of surgery with a sip of water, no other fluids torsemide (DEMADEX) 20 mg tablet Do not take the morning of surgery leflunomide (ARAVA) 10 mg tablet Follow your prescriber and surgeon's instructions. MEDICATION, NON-DATABASE Do not take the morning of surgery MEDICATION, NON-DATABASE Do not take the morning of surgery allopurinol (ZYLOPRIM) 300 mg tablet Take morning of surgery with a sip of water, no other fluids levothyroxine (SYNTHROID) 88 mcg tablet Take morning of surgery with a sip of water, no other fluids omeprazole (PRILOSEC) 40 mg capsule Take morning of surgery with a sip of water, no other fluids Kfuca-2-PTA-EPA-Fish Oil 1,000 mg (120 mg-180 mg) cap Do not take the morning of surgery simvastatin (ZOCOR) 40 mg tablet Do not take the morning of surgery Plwpacmtrskup-Vs-Hjkm-Minerals (ONE-A-DAY WOMENS FORMULA) 27-0.4 mg ORAL Tab Do not take the morning of surgery CALCIUM 600 WITH VITAMIN D3 600 MG-200 UNIT TAB Do not take the morning of surgery - No diabetic medication the morning of surgery. - Accucheck day of surgery. - If you take Invokana, Farxiga or Jardiance, hold 3 day pre-op If you have any medication changes between receiving these instructions and your surgery date, please provide this updated information with the nurse who calls you the week day prior to your surgical procedure so we can update your list and provide you with updated instructions for the morning of your procedure. Summary: [facility] Anesthesia Consult R REVERSE TSA - Giorgi - 10/26/22 Chart Review (Ed): 82 yo obese woman, non-smoker. PMHx of left breast Ca, CHF with AICD on Entresto, Aldactone, Dig, Metoprolol and Demidex. I see Kota's name (cardiology [place]) on a Spexct from 02/07 with LVEF 59% and no scar or rev. Ischemia. 05/08 echo EF was 50%. LVEF. 10/04 MARCUS Gtz: I had the pleasure of meeting Desirae today in [facility]. Lives with her . Still maintains her home, cooks. Not driving currently 2/2 R shoulder pain. She is R handed. Hx of L breast ca with intermittent lymphedema. I did d/w her IV access and monitoring of her L arm for lymphedema postop- to be discussed AM DOS. Her AICD was originally placed <2013, has needed explanted 2/2 need for additional XRT for L breast ca recurrence. States she thinks it was re-inserted around 2013. She takes Arava for psoriasis which is predominantly on BUE/BLE. Currently no open lesions. Follows with rheumatology in [place]- I advised her to d/w Giorgi and her housekeeping lead if they feel she needs a drug holiday to decrease risk of infection. Denies CP/SOB/orthopnea. No longer sees Kota and now follows with Phil at [facility] for her NICM/AICD management. Since she started seeing him, states her fx capacity is much better and is now tolerating riding her stationary bike 2-3 miles/day 6x week. BP low- NML for her- 91/47 on the R. HR 98, 94% RA, RR 18. EKG 93bpm, TW abn consider lateral ischemia- will wait for confirmed reading (comparing with EKG from 2018, there are changes). I have requested last OV notes from Phil's office as well as any additional cardiac testing/ most recent EKG. She ambulates without assistance. Lungs CTA, HRR- states her HR is normally in the 90s despite being on dig and metoprolol. 2+ nonpitting BLE edema- which is chronic. documented in this encounter [facility] 10-04-2022 History of Presen t illness Narrative Radiology Service Progress Note PATIENT NAME: Desirae Archuleta DATE OF SERVICE: October 04, 2022 TIME: 9:12 AM PATIENT IDENTITY VERIFICATION COMPLETED USING TWO (2) IDENTIFIERS: Name and Date of confirmed by patient verbally. FALL SCREENING: Has the patient had 2 falls in the last year or 1 fall with injury or currently using an Ambulatory Assistive Device (Walker, Cane, Wheelchair, Crutches, etc.)? No PATIENT GENDER DATA: Female. status: : No status: NO. PATIENT RELEVANT IMPLANT DATA REVIEWED: Not Applicable RADIOLOGY DEPARTMENT: CT; Exam(s) Completed: Upper extremity PERIPHERAL IV DATA: Not applicable SIGNED BY: RT Estrellita(R) October 04, 2022 9:12 AM documented in this encounter [facility] documented as of this encounter (statuses as of 10/04/2022) [facility] History of Past illness Narrative* Problem Noted Date Resolved Date Breast cancer 05/16/2014 01/02/2017 Lumbar disc disease with radiculopathy 4 06/13/2017 Axillary mass 01/16/2013 05/12/2014 CHF (congestive heart failure) 02/14/2011 0 05/12/2014 Cardiomyopathy 07/14/2010 05/12/2014 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) 02/25/2009 12/27/2010 Sciatica 11/15/2007 12/05/2007 BREAST CANCER UPPER OUTER (Left) 07/13/2006 07/09/2012 documented as of this encounter (statuses as of 10/05/2022) [facility] History of Past illness Narrative* Problem Noted Date Resolved Date Breast cancer 05/16/2014 01/02/2017 Lumbar disc disease with radiculopathy 4 06/13/2017 Axillary mass 01/16/2013 05/12/2014 CHF (congestive heart failure) 02/14/2011 0 05/12/2014 Cardiomyopathy 07/14/2010 05/12/2014 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) 02/25/2009 12/27/2010 Sciatica 11/15/2007 12/05/2007 BREAST CANCER UPPER OUTER (Left) 07/13/2006 07/09/2012 documented as of this encounter (statuses as of 03/13/2023) [facility] History of Past illness Narrative* Problem Noted Date Resolved Date Breast cancer 05/16/2014 01/02/2017 Lumbar disc disease with radiculopathy 4 06/13/2017 Axillary mass 01/16/2013 05/12/2014 CHF (congestive heart failure) 02/14/2011 0 05/12/2014 Cardiomyopathy 07/14/2010 05/12/2014 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) 02/25/2009 12/27/2010 Sciatica 11/15/2007 12/05/2007 BREAST CANCER UPPER OUTER (Left) 07/13/2006 07/09/2012 documented as of this encounter (statuses as of 03/16/2023) [facility] History of Past illness Narrative* Problem Noted Date Diagnosed Date Resolved Date Breast cancer 05/16/2014 01/02/2017 Lumbar disc disease with radiculopathy 04/07/2014 06/13/2017 Axillary mass 01/16/2013 05/12/2014 CHF (congestive heart failure) 02/14/2011 05/12/2014 Cardiomyopathy 07/14/2010 05/12/2014 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) 02/25/2009 12/27/2010 Sciatica 11/15/2007 12/05/2007 BREAST CANCER UPPER OUTER (Left) 07/13/2006 07/09/2012 documented as of this encounter (statuses as of 06/04/2023) [facility] History of Past illness Narrative* Problem Noted Date Diagnosed Date Resolved Date Breast cancer 05/16/2014 01/02/2017 Lumbar disc disease with radiculopathy 04/07/2014 06/13/2017 Axillary mass 01/16/2013 05/12/2014 CHF (congestive heart failure) 02/14/2011 05/12/2014 Cardiomyopathy 07/14/2010 05/12/2014 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) 02/25/2009 12/27/2010 Sciatica 11/15/2007 12/05/2007 BREAST CANCER UPPER OUTER (Left) 07/13/2006 07/09/2012 documented as of this encounter (statuses as of 06/06/2023) [facility] + Plan note No data available for this section [facility] Evaluation note* Diagnosis Preop cardiovascular exam- Primary Pre-operative cardiovascular examination Preop testing Preoperative examination, unspecified Primary osteoarthritis of right shoulder Primary localized osteoarthrosis, shoulder region documented in this encounter [facility] note* Diagnosis Chronic combined systolic and diastolic CHF (congestive heart failure) (HCC)- Primary Chronic combined systolic and diastolic heart failure Preop testing Preoperative examination, unspecified Complete tear of left rotator cuff, unspecified whether traumatic documented in this encounter [facility] note* Diagnosis Right hip pain- Primary Pain in joint, pelvic region and thigh documented in this encounter [facility] note* Diagnosis Chronic HFrEF (heart failure with reduced ejection fraction) (HCC)- Primary Nonrheumatic mitral valve regurgitation Essential hypertension, benign Encounter for adjustment or management of cardiac device documented in this encounter [facility] note* Diagnosis Chronic HFrEF (heart failure with reduced ejection fraction) (HCC) documented in this encounter [facility] Discharge instructions No data available for this section [facility] Reason for referral (narrative)* Outpatient Procedure (Routine) - Pending Review Specialty Diagnoses / Procedures Referred By Contac t Referred To [facility] Diagnoses Preop cardiovascular exam Procedures ECG COMPLETE ECG ROUTINE ECG W/LEAST 12 LDS W/I&R Gilberto Rand DO [address] [place] [address] [facility] [address] [place] [address] Referral ID Status Reason Start Date Expiration Date Visits Requested Visits Authorized [id number] Pending Review Auto-Generat ed Referral 2 10/03/2023 1 1 [facility] Diagnostic Procedure Only (Urgent) - Pending Review Specialty Diagnoses / Procedures Referred By Rosy t Referred To Contact XR IMAGING Diagnoses Right hip pain Procedures XR HIP GENERAL 3V PELV/AP/LAT RIGHT RADEX HIP UNILATERAL WITH PELVIS 2-3 VIEWS [facility] [address] [place] [address] Xr Imaging Referral ID Status Reason Start Date Expiration Date Visits Requested Visits Authorized [id number] Pending Review Auto-Generat ed Referral 06/04/2023 07/03/2024 1 1 [facility] Summary Purpose Family History No Family History Records FoundNo Family History Records FoundNo Family History Records FoundNo Family History Records FoundNo Family History Records Found Advance Directives No Advanced Directives Records FoundNo Advanced Directives Records FoundNo Advanced Directives Records FoundNo Advanced Directives Records FoundNo Advanced Directives Records Found Reason for Referral Specialty Diagnoses / Procedures Referred By Rosy t Referred To Contact Cardiology Diagnoses Chronic HFrEF (heart failure with reduced ejection fraction) (HCC) Procedures Transthoracic echocardiogram (TTE) complete with contrast, bubble, strain, and 3D PRN ID ECHO TTHRC R-T 2D W/WOM-MODE COMPL SPEC&COLR D ID TTE W OR WO FOL WCON,DOPPLER Sreedhar Drummond PA-C [address] [place] [id number] Referral ID Status Reason Start Date Expiration Date V isits Requested Visits Authorized [id number] Pending Review 08/08/2023 02/04/2024 1 1 Additional Source Comments INFORMATION SOURCE (unrecogn ized section and content) DATE CREATED AUTHOR AUTHOR'S ORGANIZ ATION 06/06/2023 [facility] DATE CREATED AUTHOR AUTHOR'S ORGANIZ ATION 08/25/2023 [facility] ([place] DATE CREATED AUTHOR AUTHOR'S ORGANIZ ATION 11/12/2023 [facility] [employer] [facility] DATE CREATED AUTHOR AUTHOR'S ORGANIZ ATION 11/19/2023 [facility] Source Comments (unrecognize d section and content) In the event this informatio n is protected by the Federal Confidentiality of Alcohol and Drug Abuse Patient Records regulations: The Federal rules restrict any use of the information to criminally investigate or prosecute any alcohol or drug abuse patient.[facility] event this information is protected by the Federal Confidentiality of Alcohol and Drug Abuse Patient Records regulations: The Federal rules restrict any use of the information to criminally investigate or prosecute any alcohol or drug abuse patient.[facility] the event this information is protected by the Federal Confidentiality of Alcohol and Drug Abuse Patient Records regulations: The Federal rules restrict any use of the information to criminally investigate or prosecute any alcohol or drug abuse patient.[facility] the event this information is protected by the Federal Confidentiality of Alcohol and Drug Abuse Patient Records regulations: The Federal rules restrict any use of the information to criminally investigate or prosecute any alcohol or drug abuse patient.[facility] the event this information is protected by the Federal Confidentiality of Alcohol and Drug Abuse Patient Records regulations: The Federal rules restrict any use of the information to criminally investigate or prosecute any alcohol or drug abuse patient.[facility] the event this information is protected by the Federal Confidentiality of Alcohol and Drug Abuse Patient Records regulations: The Federal rules restrict any use of the information to criminally investigate or prosecute any alcohol or drug abuse patient.[facility] Care Teams (unrecognized sec tion and content) Wheel Borer Relationship Specialty Start Date End Date Marquis Harden MD [address] [place], [place] [id number] PCP - General Internal Medicine 11/10/21 Wheel Borer Relationship Specialty Start Date End Date Marquis Harden [address] [place], [place] [id number] PCP - General 05/02/22 Wheel Borer Relationship Specialty Start Date End Date Marquis Harden MD [address] [place] [address] PCP - General Internal Medicine 11/10/21 Wheel Borer Relationship Specialty Start Date End Date Marquis Harden MD [address] [place] [address] PCP - General Internal Medicine 11/10/21 Wheel Borer Relationship Specialty Start Date End Date Marquis Harden [address] [place] [address] PCP - General 05/02/22 Wheel Borer Relationship Specialty Start Date End Date Marquis Harden MD [address] [place] [address] PCP - General Internal Medicine 11/10/21 Wheel Borer Relationship Specialty Start Date End Date Marquis Harden MD [address] [place] [address] PCP - General Internal Medicine 11/10/21 Wheel Borer Relationship Specialty Start Date End Date Marquis Harden [address] [place] [address] PCP - General 05/02/22 Wheel Borer Relationship Specialty Start Date End Date Marquis Harden [address] [place] [address] PCP - General 05/02/22 Wheel Borer Relationship Specialty Start Date End Date Marquis Harden [address] [place] [address] PCP - General 05/02/22 Cherri Villarreal, heating workerComprehensive Advisor Budget Officer 09/14/23 Reason for Visit (unrecogniz ed section and content) Reason Comments pacc hx call Reason Onset Date Comments Med Refill 05/25/2023 Reason Comments Right Hip Pain Started about 2 week s ago, worsened Reason Comments Results Reason Comments New Patient 6 Month Follow-up Reason Comments Med Refill Reason Onset Date Comments Other 09/18/2023 FOR RECORDS PERTAINING TO PATIENTS WHO ARE OR HAVE BEEN ENROLLED IN A CHEMICAL DEPENDENCY/SUBSTANCEABUSE PROGRAM, SOME INFORMATION MAY BE OMITTED. This clinical summary was aggregated from multiple sources. Caution should be exercised in using it in the provision of clinical care. This summary normalizes information from multiple sources, and as a consequence, information in this document may materially change the coding, format and clinical context of patient data. In addition, data may be omitted in some cases. CLINICAL DECISIONS SHOULD BE BASED ON THE PRIMARY CLINICAL RECORDS. [facility]. provides no warranty or guarantee of the accuracy or completeness of information in this document.
[2023-11-25 09:34] LABS: Absolute Neutrophil Count 4.5 X10^3/uL (2.0-7.7); Basophil# 0.03 X10^3/uL; Basophil% 0.4 % (0-1); Eosinophil# 0.12 X10^3/uL; Eosinophils% 1.5 % (0-5); Hemoglobin 12.1 g/dL (12.0-15.0); Mean Corp Hgb Conc 32.7 g/dL (32-36); Mean Corpuscular Volume 94.9 fL (81-99); Mean Platelet Vol. 8.6 fl (6.2-12.0); Monocyte# 0.47 X10^3/uL; Monocyte% 5.9 % (0-10); NRBC Flagged by Analyzer 0 % (0-5); Neutrophil # 4.54 X10^3/uL (2.7-7.7); Neutrophil % 57.2 % (47-70); Platelet Count 201 K/mm3 (150-450); RBC Distribution Width CV 16.1 % (11.6-14.6); RBC Distribution Width SD 55.1 fl (35.1-43.9); White Blood Count 7.9 K/mm3 (4.4-11.0)
[2023-11-25 10:07] LABS: ALB/GLOB Ratio 0.9 RATIO (0.9-2.4); AST(SGOT) 23 U/L (15-37); Alanine Aminotransfer ALT/SGPT 38 U/L (13-56); Albumin, Serum 3.4 g/dL (3.2-5.0); Alkaline Phosphatase 91 U/L (45-117); Anion Gap 6 (5-15); BUN 36 mg/dL (7-18); BUN/Creat Ratio 34.6 RATIO (10-20); Calcium,Total 9.3 mg/dL (8.5-10.1); Chloride 108 mmol/L (98-107); Creatinine, Serum 1.04 mg/dL (0.55-1.02); EST Glomerular Filtration Rate 54 mL/min (>60); Est Glom Filt Rate - Afr Amer 65 mL/min (>60); Globulin 3.6 g/dL (2.2-4.2); Glucose 127 mg/dL (74-106); Potassium 3.8 mmol/L (3.5-5.1); Sodium Level 138 mmol/L (136-145)
== END | disposition home or self-care (01) ==
LOC: LAB 08:53
PROVIDERS: Internal Medicine Rheumatology; PCP Internal Medicine
DX: I50.22 Chronic systolic (congestive) heart failure (principal); L40.59 Other psoriatic arthropathy; Z79.899 Other long term (current) drug therapy
CPT/HCPCS: 36415; 80053; 85025

== ENCOUNTER 2024-01-30 13:55 | Emergency (ER) | payer MEDICARE, SELFPAY ==
--- NOTE | 2024-01-30 14:30 | RAD_ITS ---
EXAM: XR LEFT SHOULDER COMPLETE, 2 OR MORE VIEWS CLINICAL INDICATION: PAIN, RED AND SWOLLEN, HX STAFF INFECTION AUG 2023 TECHNIQUE: Two or more views of the left shoulder. COMPARISON: No relevant prior studies available. FINDINGS: Prosthetic device likely represents an antibiotic impregnated temporary humeral head fixated by intramedullary pradeep. No hardware complications. Diffuse osteopenia. No acute or healing fracture or malalignment. Surgical clips project over the left hemithorax. Somewhat attenuated and irregular appearance of the acromion is chronic. RAD/Shoulder min 2 Views IMPRESSION: Remote postsurgical changes as above with no acute or healing fracture or malalignment. Electronically Signed: Jerel Curiel MD at 18:59 EDT ,
--- NOTE | 2024-01-30 14:30 | RAD_ITS ---
STUDY: X-RAY - PELVIS AND RIGHT HIP REASON FOR EXAM: Female, 83 years old. PAIN, NKI TECHNIQUE: 3 views of the pelvis and hip. COMPARISON: None. FINDINGS: There is a non-specific bowel gas pattern. Surgical clips noted overlying the left pubis. Normal bilateral iliac wings, sacroiliac joints and visualized sacrum. Normal bilateral superior and inferior pubic rami. Normal pubic symphysis. Normal bilateral ischial tuberosities. Normal visualized femoral head. Normal acetabulum. Normal hip joint. RAD/HIP, UNI W/ Pelvis 2-3 Views IMPRESSION: No significant bony abnormality involving the pelvis and hips for age. Electronically Signed: Eliecer Garcia MD at 18:25 EDT ,
--- NOTE | 2024-01-30 15:00 | VDUE_ITS ---
Reason For Study: Pain/Swelling Left Proximal Left jugular vein is spontaneous, widely patent, phasic, with no intraluminal echogenicity noted. Left subclavian vein is spontaneous, widely patent, phasic, with no intraluminal echogenicity noted. Left Arm Left axillary vein is spontaneous, patent, phasic, competent, compressible and demonstrates augmentation. Left brachial vein is compressible. Left cephalic vein is compressible. Left basilic vein is compressible. Left Lower Arm Left radial vein is compressible. Left ulnar vein is compressible. Patient Safety Venous Duplex w/ B-mode, color and pulsed wave doppler. STAT results given to ED KATE Aguilar. VL/Venous Duplex US, Unilateral Interpretation Summary Deep veins of the left upper extremity are patent and compressible segmentally. There is no evidence of deep vein thrombosis. Superficial veins of the left upper extremity are patent and compressible segme ntally. There is no evidence of superficial vein thrombosis Ordering Physician: MD Rodri Westley Performed By: Mark Cat, RVT ???
[2024-01-30 19:26] LABS: Hematocrit 35.9 % (37-47); Hemoglobin 11.1 g/dL (12.0-15.0); Red Blood Count 3.61 M/mm3 (4.2-5.4); White Blood Count 8.5 K/mm3 (4.4-11.0)
[2024-01-30 19:27] LABS: Basophil% 0.6 % (0-1); Eosinophils% 2.4 % (0-5); Lymphocyte % 21.8 % (19-41); Mean Corp Hgb Conc 31.1 g/dL (32-36); Mean Corpuscular Hgb 30.7 pg (27.0-32.0); Mean Corpuscular Volume 98.9 fL (81-99); Mean Platelet Vol. 8.6 fl (6.2-12.0); Monocyte% 9.2 % (0-10); Neutrophil % 64.9 % (47-70); Platelet Count 233 K/mm3 (150-450); RBC Distribution Width CV 17.1 % (11.6-14.6); RBC Distribution Width SD 61.7 fl (35.1-43.9)
[2024-01-30 19:28] LABS: Absolute Lymphocyte Count 1.85 X10^3/uL (0.83-4.51); Absolute Neutrophil Count 5.5 X10^3/uL (2.0-7.7); Basophil# 0.05 X10^3/uL; Erythrocyte Sedimentation Rate 9 mm/hr (0-30); Lymphocyte # 1.85 X10^3/ul (0.83-4.51); Monocyte# 0.78 X10^3/uL; NRBC Flagged by Analyzer 1.1 % (0-5)
[2024-01-30 21:32] LABS: Glucose 131 mg/dL (74-106)
[2024-01-30 21:35] LABS: ALB/GLOB Ratio 1.1 RATIO (0.9-2.4); AST(SGOT) 36 U/L (15-37); Alanine Aminotransfer ALT/SGPT 43 U/L (13-56); Albumin, Serum 3.4 g/dL (3.2-5.0); Alkaline Phosphatase 91 U/L (45-117); Anion Gap 5 (5-15); BUN 23 mg/dL (7-18); Calcium,Total 9.1 mg/dL (8.5-10.1); Chloride 106 mmol/L (98-107); Creatinine, Serum 1.15 mg/dL (0.55-1.02); EST Glomerular Filtration Rate 48 mL/min (>60); Est Glom Filt Rate - Afr Amer 58 mL/min (>60); Globulin 3.1 g/dL (2.2-4.2); Potassium 3.7 mmol/L (3.5-5.1); Protein, Total 6.5 g/dL (6.4-8.2); Sodium Level 139 mmol/L (136-145)
[2024-01-30 21:36] LABS: CRP < 2.90 mg/L (0.0-3.0)
== END 2024-01-30 15:47 | disposition home or self-care (01) ==
PROVIDERS: Emergency Provider Emergency Medicine; PCP Internal Medicine; Visit Provider Emergency Medicine
DX: R22.32 Localized swelling, mass and lump, left upper limb (principal); I25.10 Atherosclerotic heart disease of native coronary artery without angina pectoris; Z95.0 Presence of cardiac pacemaker; Z96.653 Presence of artificial knee joint, bilateral; M25.551 Pain in right hip; M16.11 Unilateral primary osteoarthritis, right hip; I89.0 Lymphedema, not elsewhere classified
CPT/HCPCS: 36415; 73030; 73502; 80053; 85025; 85379; 85652; 86140; 93971; 96374; 96376; 99284; J2405

== ENCOUNTER → 2024-02-05 | Outpatient (CLI) | payer MEDICARE, SELFPAY ==
--- NOTE | 2024-02-05 13:56 | BI_ITS ---
MAMMOGRAPHY - BILATERAL SCREENING REASON FOR EXAM: Female, 83 years old. Routine annual screening examination. PERTINENT HISTORY: Personal history of breast cancer. Mother with breast cancer. Aunt with breast cancer. TECHNIQUE: Digital bilateral breast temi (3D mammographic acquisition) in the CC and MLO projections. 2-D mediolateral oblique (MLO) and craniocaudad (CC) views of both breasts were obtained. CAD: Full Field Digital Mammography with Computer Added Detection was performed. COMPARISON: Comparison is made with prior study February 02, 2023 and April 28, 2021. FINDINGS: Breast Composition: The breasts are heterogeneously dense, which may obscure small masses. There are no dominant masses or suspicious calcifications. The patient is status post left lumpectomy with resultant postoperative changes and decreased size of the left breast. Surgical clips are seen in the left axilla. A pacemaker battery pack is seen in the left axilla as well. No other significant abnormalities are identified. There has been no significant change since the prior study. BI/SCRN MAMM (CAD)W/TEMI BILAT IMPRESSION: Stable bilateral screening mammogram. Yearly follow-up mammogram recommended. (A) ASSESSMENT CATEGORY: BIRADS Category 2: Benign. A letter regarding these results will be sent to the patient by the facility within 30 days. Approximately 10% of breast cancers are not detected by mammography. A normal mammogram should not delay biopsy of a clinically suspicious abnormality. [id number] Electronically Signed: Cesar Wing MD at 14:54 EDT ,
[2024-02-05 15:36] LABS: Absolute Neutrophil Count 6.3 X10^3/uL (2.0-7.7); Basophil# 0.07 X10^3/uL; Basophil% 0.7 % (0-1); Eosinophil# 0.17 X10^3/uL; Eosinophils% 1.7 % (0-5); Hematocrit 38.2 % (37-47); Hemoglobin 11.9 g/dL (12.0-15.0); Lymphocyte % 23.2 % (19-41); Mean Corp Hgb Conc 31.2 g/dL (32-36); Mean Corpuscular Hgb 31.4 pg (27.0-32.0); Mean Corpuscular Volume 100.8 fL (81-99); Mean Platelet Vol. 9.3 fl (6.2-12.0); Monocyte# 0.97 X10^3/uL; Monocyte% 9.8 % (0-10); NRBC Flagged by Analyzer 0.2 % (0-5); Neutrophil # 6.33 X10^3/uL (2.7-7.7); Neutrophil % 63.7 % (47-70); Platelet Count 266 K/mm3 (150-450); RBC Distribution Width CV 16.4 % (11.6-14.6); RBC Distribution Width SD 60.3 fl (35.1-43.9); Red Blood Count 3.79 M/mm3 (4.2-5.4); White Blood Count 9.9 K/mm3 (4.4-11.0)
[2024-02-05 16:45] LABS: ALB/GLOB Ratio 1.2 RATIO (0.9-2.4); AST(SGOT) 35 U/L (15-37); Alanine Aminotransfer ALT/SGPT 47 U/L (13-56); Albumin, Serum 3.7 g/dL (3.2-5.0); Alkaline Phosphatase 111 U/L (45-117); Anion Gap 9 (5-15); BUN 23 mg/dL (7-18); Calcium,Total 9.2 mg/dL (8.5-10.1); Chloride 104 mmol/L (98-107); Creatinine, Serum 1.21 mg/dL (0.55-1.02); EST Glomerular Filtration Rate 45 mL/min (>60); Est Glom Filt Rate - Afr Amer 55 mL/min (>60); Globulin 3.2 g/dL (2.2-4.2); Glucose 153 mg/dL (74-106); Potassium 4.1 mmol/L (3.5-5.1); Protein, Total 6.9 g/dL (6.4-8.2); Sodium Level 139 mmol/L (136-145)
== END | disposition home or self-care (01) ==
PROVIDERS: PCP Internal Medicine; Referring Provider Internal Medicine Medical Oncology; Visit Provider Internal Medicine Medical Oncology
DX: Z12.31 Encounter for screening mammogram for malignant neoplasm of breast (principal); L40.59 Other psoriatic arthropathy; Z80.3 Family history of malignant neoplasm of breast; Z85.3 Personal history of malignant neoplasm of breast; Z79.899 Other long term (current) drug therapy
CPT/HCPCS: 36415; 77063; 77067; 80053; 85025

== ENCOUNTER → 2024-02-23 | Outpatient (CLI) | payer MEDICARE, SELFPAY ==
[2024-02-23 10:45] LABS: Absolute Lymphocyte Count 3.14 X10^3/uL (0.83-4.51); Basophil# 0.04 X10^3/uL; Basophil% 0.4 % (0-1); Eosinophil# 0.21 X10^3/uL; Eosinophils% 2.3 % (0-5); Hematocrit 40.8 % (37-47); Hemoglobin 13.2 g/dL (12.0-15.0); Lymphocyte # 3.14 X10^3/ul (0.83-4.51); Lymphocyte % 34.3 % (19-41); Mean Corp Hgb Conc 32.4 g/dL (32-36); Mean Corpuscular Hgb 31.9 pg (27.0-32.0); Mean Corpuscular Volume 98.6 fL (81-99); Mean Platelet Vol. 9.3 fl (6.2-12.0); Monocyte# 0.69 X10^3/uL; Monocyte% 7.5 % (0-10); NRBC Flagged by Analyzer 0 % (0-5); Neutrophil # 5.01 X10^3/uL (2.7-7.7); Neutrophil % 54.8 % (47-70); Platelet Count 188 K/mm3 (150-450); RBC Distribution Width CV 14.1 % (11.6-14.6); RBC Distribution Width SD 51.2 fl (35.1-43.9); Red Blood Count 4.14 M/mm3 (4.2-5.4); White Blood Count 9.2 K/mm3 (4.4-11.0)
[2024-02-23 11:30] LABS: ALB/GLOB Ratio 1.1 RATIO (0.9-2.4); AST(SGOT) 24 U/L (15-37); Alanine Aminotransfer ALT/SGPT 35 U/L (13-56); Albumin, Serum 3.6 g/dL (3.2-5.0); Alkaline Phosphatase 94 U/L (45-117); Anion Gap 7 (5-15); BUN 31 mg/dL (7-18); Calcium,Total 9.4 mg/dL (8.5-10.1); Chloride 106 mmol/L (98-107); Creatinine, Serum 1.07 mg/dL (0.55-1.02); EST Glomerular Filtration Rate 52 mL/min (>60); Est Glom Filt Rate - Afr Amer 63 mL/min (>60); Globulin 3.4 g/dL (2.2-4.2); Glucose 103 mg/dL (74-106); LDH 363 U/L (84-246); Potassium 3.9 mmol/L (3.5-5.1); Sodium Level 138 mmol/L (136-145)
[2024-02-23 11:46] LABS: Free T3 1.9 pg/mL (2.18-3.98); T4 Free Direct 1.13 ng/dL (0.76-1.46); Thyroid Stim Hormone (TSH) 0.49 uIU/mL (0.358-3.74)
== END | disposition home or self-care (01) ==
LOC: LAB 09:30
PROVIDERS: Internal Medicine Medical Oncology; PCP Internal Medicine; Referring Provider Internal Medicine; Visit Provider Internal Medicine
DX: C50.912 Malignant neoplasm of unspecified site of left female breast (principal); E78.5 Hyperlipidemia, unspecified; E03.9 Hypothyroidism, unspecified
CPT/HCPCS: 36415; 80053; 83615; 84439; 84443; 84481; 85025

== ENCOUNTER → 2024-02-28 | Outpatient (CLI) | payer MEDICARE, SELFPAY ==
--- NOTE | 2024-02-28 14:25 | RAD_ITS ---
INDICATION: RIGHT LEG PAIN EXAMINATION/TECHNIQUE: X-RAY - RIGHT XR Tibia/Fibula 2 Views COMPARISON: FINDINGS: SOFT TISSUES: No soft tissue swelling or gas. No radiopaque foreign body. BONES/JOINTS: No acute fracture or subluxation.. 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 The hardware components are well aligned. No imaging evidence of loosening. Normal alignment. Preservation of the joint space.. No sclerotic or destructive changes observed. RAD/Tibia & Fibula 2 Views IMPRESSION: No acute bony injury. Electronically Signed: Rolf Phelan DO at 16:51 EDT Reading Location ID and State: [facility] / [place] Tel [phone], Service support ,
--- NOTE | 2024-02-28 14:25 | RAD_ITS ---
INDICATION: RIGHT LEG PAIN EXAMINATION/TECHNIQUE: X-RAY - RIGHT XR Ankle 3 VIEWS COMPARISON: FINDINGS: SOFT TISSUES: No soft tissue swelling or gas. No radiopaque foreign body. BONES/JOINTS: No acute fracture or subluxation.. Normal alignment. Preservation of the joint space.. Degenerative changes of the calcaneus. No sclerotic or destructive changes observed. RAD/Ankle min 3 Views IMPRESSION: No acute bony injury. Electronically Signed: Rolf Phelan DO at 16:41 EDT ,
== END | disposition home or self-care (01) ==
LOC: RAD 14:22
PROVIDERS: PCP Internal Medicine; Referring Provider Internal Medicine Medical Oncology; Visit Provider Internal Medicine Medical Oncology
DX: M79.604 Pain in right leg (principal)
CPT/HCPCS: 73590; 73610

== ENCOUNTER → 2024-05-02 | Outpatient (CLI) | payer MEDICARE, SELFPAY ==
[2024-05-02 14:44] LABS: Absolute Neutrophil Count 6.9 X10^3/uL (2.0-7.7); Basophil# 0.04 X10^3/uL; Basophil% 0.4 % (0-1); Eosinophil# 0.19 X10^3/uL; Eosinophils% 1.9 % (0-5); Hematocrit 36.1 % (37-47); Hemoglobin 11.3 g/dL (12.0-15.0); Lymphocyte % 19.9 % (19-41); Mean Corp Hgb Conc 31.3 g/dL (32-36); Mean Corpuscular Hgb 30.3 pg (27.0-32.0); Mean Corpuscular Volume 96.8 fL (81-99); Monocyte# 0.86 X10^3/uL; Monocyte% 8.6 % (0-10); NRBC Flagged by Analyzer 0 % (0-5); Neutrophil # 6.87 X10^3/uL (2.7-7.7); Neutrophil % 68.5 % (47-70); Platelet Count 252 K/mm3 (150-450); RBC Distribution Width CV 14.4 % (11.6-14.6); RBC Distribution Width SD 50.9 fl (35.1-43.9); Red Blood Count 3.73 M/mm3 (4.2-5.4)
[2024-05-02 16:09] LABS: AST(SGOT) 27 U/L (15-37); Alanine Aminotransfer ALT/SGPT 27 U/L (13-56); Albumin, Serum 3.3 g/dL (3.2-5.0); Alkaline Phosphatase 119 U/L (45-117); Anion Gap 7 (5-15); BUN 28 mg/dL (7-18); BUN/Creat Ratio 22.8 RATIO (10-20); Calcium,Total 8.9 mg/dL (8.5-10.1); Chloride 107 mmol/L (98-107); Creatinine, Serum 1.23 mg/dL (0.55-1.02); EST Glomerular Filtration Rate 44 mL/min (>60); Est Glom Filt Rate - Afr Amer 54 mL/min (>60); Globulin 3.4 g/dL (2.2-4.2); Glucose 148 mg/dL (74-106); Potassium 3.6 mmol/L (3.5-5.1); Protein, Total 6.7 g/dL (6.4-8.2); Sodium Level 138 mmol/L (136-145)
== END | disposition home or self-care (01) ==
LOC: MTLAB 13:49
PROVIDERS: PCP Internal Medicine; Referring Provider Internal Medicine Rheumatology; Visit Provider Internal Medicine Rheumatology
DX: L40.59 Other psoriatic arthropathy (principal); Z79.899 Other long term (current) drug therapy
CPT/HCPCS: 36415; 80053; 85025

== ENCOUNTER 2024-07-24 10:53 | Outpatient (RCR) | payer MEDICARE, SELFPAY ==
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
--- NOTE | 2024-11-19 14:27 | HP.OT.NRP ---
Patient Information Patient Information: DESIRAE BRYANT was seen in my office for initial evaluation on 07/24/24. The following Plan of Care was established for this patient: POC Established Initial Frequency: 3-4 sessions Initial Duration: 4 Months Anticipated Interventions Anticipated Interventions: A/AAROM/PROM, Joint Protection/Energy Conservation, Education re Diagnosis, Manual Lymph Drainage, Education re Life-long lymphedema Management, Education re Skin Care and Precautions, Education re Self Massage Techniques, Education re Correct Donning Tech,Care&Wearing Sched Comp Garments, Caregiver Training and Home Program Last Seen Last Seen: This patient was last seen in our office 07/24/24. Pertinent comments regarding their Occupational therapy will appear below: This 84 year old female seen for dx of lymphedema. evaluation complete pt does not schedule any follow up appointments. discharge from caseload due to lapse in time of services. At this point I will be discontinuing this patient from occupational therapy. I would be happy to see this patient again in the future if found appropriate by the physician. Thank you! Nelia Ellis
== END 2024-07-24 19:00 | disposition home or self-care (01) ==
LOC: OT 10:53
PROVIDERS: PCP Internal Medicine; Referring Provider Surgery Vascular Surgery; Visit Provider Surgery Vascular Surgery
DX: I89.0 Lymphedema, not elsewhere classified (principal)
CPT/HCPCS: 97165; 97166; 97530

== ENCOUNTER → 2024-07-29 | Outpatient (CLI) | payer MEDICARE, SELFPAY ==
[2024-07-29 15:23] LABS: Absolute Lymphocyte Count 2.35 X10^3/uL (0.83-4.51); Absolute Neutrophil Count 4.7 X10^3/uL (2.0-7.7); Basophil# 0.04 X10^3/uL; Basophil% 0.5 % (0-1); Eosinophil# 0.22 X10^3/uL; Eosinophils% 2.7 % (0-5); Hematocrit 35.4 % (37-47); Hemoglobin 11.1 g/dL (12.0-15.0); Lymphocyte # 2.35 X10^3/ul (0.83-4.51); Lymphocyte % 28.7 % (19-41); Mean Corp Hgb Conc 31.4 g/dL (32-36); Mean Corpuscular Hgb 29.6 pg (27.0-32.0); Mean Corpuscular Volume 94.4 fL (81-99); Mean Platelet Vol. 9.5 fl (6.2-12.0); Monocyte# 0.81 X10^3/uL; Monocyte% 9.9 % (0-10); NRBC Flagged by Analyzer 0 % (0-5); Neutrophil # 4.74 X10^3/uL (2.7-7.7); Neutrophil % 57.8 % (47-70); Platelet Count 246 K/mm3 (150-450); RBC Distribution Width CV 15.1 % (11.6-14.6); RBC Distribution Width SD 51.8 fl (35.1-43.9); Red Blood Count 3.75 M/mm3 (4.2-5.4); White Blood Count 8.2 K/mm3 (4.4-11.0)
[2024-07-29 16:20] LABS: ALB/GLOB Ratio 0.9 RATIO (0.9-2.4); AST(SGOT) 19 U/L (15-37); Alanine Aminotransfer ALT/SGPT 19 U/L (13-56); Albumin, Serum 3.2 g/dL (3.2-5.0); Alkaline Phosphatase 111 U/L (45-117); Anion Gap 8 (5-15); BUN 21 mg/dL (7-18); BUN/Creat Ratio 20.6 RATIO (10-20); Calcium,Total 9.3 mg/dL (8.5-10.1); Chloride 106 mmol/L (98-107); Creatinine, Serum 1.02 mg/dL (0.55-1.02); EST Glomerular Filtration Rate 55 mL/min (>60); Est Glom Filt Rate - Afr Amer 67 mL/min (>60); Globulin 3.6 g/dL (2.2-4.2); Glucose 156 mg/dL (74-106); Potassium 3.5 mmol/L (3.5-5.1); Protein, Total 6.8 g/dL (6.4-8.2); Sodium Level 138 mmol/L (136-145)
== END | disposition home or self-care (01) ==
PROVIDERS: PCP Internal Medicine; Referring Provider Internal Medicine Rheumatology; Visit Provider Internal Medicine Rheumatology
DX: L40.59 Other psoriatic arthropathy (principal); L40.8 Other psoriasis; Z79.899 Other long term (current) drug therapy
CPT/HCPCS: 36415; 80053; 85025

== ENCOUNTER → 2024-07-30 | Outpatient (CLI) | payer MEDICARE, SELFPAY | END | disposition home or self-care (01) | LOC: SL 13:25 | PROVIDERS: PCP Internal Medicine; Referring Provider Nurse Practitioner Acute Care; Visit Provider Nurse Practitioner Acute Care | DX: R06.02 Shortness of breath (principal) | CPT/HCPCS: 98960; G0463 ==

== ENCOUNTER → 2024-08-12 | Outpatient (CLI) | payer MEDICARE, SELFPAY | END | disposition home or self-care (01) | LOC: SL 13:15 | PROVIDERS: PCP Internal Medicine; Visit Provider Nurse Practitioner Acute Care | DX: Z46.89 Encounter for fitting and adjustment of other specified devices (principal) ==

== ENCOUNTER 2024-09-15 07:48 | Emergency (ER) | payer MEDICARE, SELFPAY ==
[2024-09-15] VITALS (7 sets, daily range): BP systolic 117–152; BP diastolic 54–79; PULSE 72–78; RESP 16–20; TEMP 36.2–36.7; O2SAT 95–99; BMI 33.3
--- NOTE | 2024-09-15 07:58 | EX.ED.UPPERE ---
HPI History of Present Illness HPI Narrative: 84-year-old female history of COPD with a defibrillator. Prior right shoulder replacement about 2 years ago. Since she went to bed her shoulder was fine. When she woke up this morning she is having great difficulty moving it and its painful. Denies any fall injury or trauma. Denies any fever redness or swelling. No prior history of this. She is right-hand dominant. Chief Complaint: Upper Extremity Injury Informant: patient Occured/Mechanism Mechanism/Context: No injury and No blunt trauma Onset/Context/Timing Onset: Today Timing: Continuous Quality of Pain: Sharp Current Severity: Moderate Maximum Severity: Moderate Associated Symptoms Associated Symptoms: Negative for Parasthesia, Weakness or Loss of Funtion Narrative Narrative: 84-year-old female atraumatic right shoulder pain with decreased range of motion. History of prior right shoulder replacement about 2 years ago. Prior similar symptoms: No Recent Illness/Hospitalization: No PFSH PFSH Medical History Infection of shoulder Trochanteric bursitis of right hip Frequent falls Carpal tunnel syndrome on both sides Osteoporosis DVT (deep venous thrombosis) Chronic back pain Anxiety Depression Hypothyroidism Chronic pain Kidney disease GERD (gastroesophageal reflux disease) Paronychia of finger On potassium wasting diuretic therapy Hyponatremia Right knee pain Low back pain Right lumbar radiculitis IT band syndrome Greater trochanteric bursitis of right hip Degenerative disc disease, lumbar Trigger finger, right middle finger Anemia Palpitations Primary osteoarthritis of right knee Arthritis Non-ischemic cardiomyopathy Obesity Essential (primary) hypertension Mouth ulcers Paroxysmal supraventricular tachycardia Nonrheumatic mitral (valve) insufficiency HLD (hyperlipidemia) Mitral valve disorder Lightheadedness Atrial enlargement, bilateral Shortness of breath Recurrent cancer of left breast COPD (chronic obstructive pulmonary disease) Home Medications ?Medication ?Instructions ?Recorded ?Last Taken ?Type calcium 600 mg (as 1 each PO DAILY supplement 08/08/14 10/17/21 History carbonate)-vitamin D3 10 mcg (400 unit) tablet multivitamin 1 tablet PO DAILY supplement 01/19/21 10/17/21 History cholecalciferol (vitamin D3) 125 125 mcg PO DAILY 02/15/22 Unknown History mcg (5,000 unit) tablet (Vitamin D3) spironolactone 50 mg tablet 50 mg PO DAILY #90 tabs 04/19/22 Unknown Rx digoxin 125 mcg (0.125 mg) tablet 125 mcg PO .Every Other Day 07/18/22 Unknown History torsemide 20 mg tablet 20 mg PO DAILY 07/18/22 Unknown History dapagliflozin propanediol 10 mg 10 mg PO DAILY 10/23/23 Unknown History tablet (Farxiga) omeprazole 40 mg capsule,delayed 40 mg PO DAILY #90 caps 12/13/23 Unknown Rx release allopurinol 300 mg tablet 300 mg PO DAILY gout #90 tabs 01/22/24 Unknown Rx simvastatin 40 mg tablet 40 mg PO QPM cholesterol #90 tabs 01/22/24 Unknown Rx nystatin 100,000 unit/gram topical 1 applic topical BID PRN rash #60 02/15/24 Unknown Rx powder grams doxycycline hyclate 100 mg capsule 100 mg PO BID 02/28/24 Unknown History ascorbic acid (vitamin C) 500 mg 500 mg PO DAILY 07/16/24 Unknown History capsule,extended release budesonide 3 mg 3 mg PO QAM PRN 08/08/24 Unknown History capsule,delayed,extended release leflunomide 10 mg tablet 10 mg PO QDAY 08/08/24 Unknown History metoprolol succinate 25 mg 25 mg PO DAILY 08/08/24 Unknown History tablet,extended release 24 hr sacubitril 97 mg-valsartan 103 mg 1 tab PO BID 08/08/24 Unknown History tablet (Entresto) vitamin E mixed 400 unit capsule 400 unit PO DAILY 08/08/24 Unknown History levothyroxine 112 mcg tablet 112 mcg PO DAILY thyroid #90 tabs 09/02/24 Unknown Rx loperamide 2 mg tablet 2 mg PO TID 09/11/24 Unknown History Allergy/AdvReac Type Severity Reaction Status Date / Time adhesive tape (tape) Allergy Severe RASH, Verified 09/15/24 07:49 ITCHING cephalexin Allergy Severe Rash Verified 09/15/24 07:49 paclitaxel (From Taxol) Allergy Severe PASS OUT Verified 09/15/24 07:49 amoxicillin AdvReac Severe C-DIFF Verified 09/15/24 07:49 hydrocodone AdvReac Vomiting Verified 09/15/24 07:49 Family History Mother , age 90 CHF (congestive heart failure) Cancer Breast cancer CAD (coronary artery disease) Brother , age 71 CHF (congestive heart failure) Hx of CABG Brother CAD (coronary artery disease) Daughter Asthma Surgical History History of left shoulder replacement History of total bilateral knee replacement History of appendectomy History of bilateral knee replacement History of implantable cardiac defibrillator (ICD) (08/22/14) History of shoulder surgery History of carpal tunnel release of both wrists History of left knee replacement History of lumpectomy of left breast History of left heart catheterization (04/20/22) H/O right and left heart catheterization (2009) Hx of cholecystectomy History of hysterectomy Social History household members: spouse housing: house pets and animals: No Smoking Status: Never smoker alcohol intake: never substance use type: does not use caffeine: No what type of physical activity do you participate in: bicycling and other frequency: 3-4 times per week duration: 15-30 minutes/day seatbelt use: always do you feel safe at home: Yes ROS ROS ED ROS Narrative Denies recent illness. Constitutional Constitutional ED: Denies chills or fever(s) Eyes Eyes: Denies blurry vision ENT ENT ED: Denies ear pain Cardiovascular Cardiovascular: Denies chest pain Respiratory/Chest Respiratory/Chest: Denies cough Gastrointestinal Gastrointestinal: Denies abdominal pain Genitourinary Genitourinary ED: Denies dysuria Musculoskeletal Musculoskeletal: Denies back pain Integumentary Denies abscess Neurologic Neurologic: Denies headache(s) Psychiatric Psychiatric: Denies anxiety Endocrine Endocrinology: Denies cold intolerance Hematologic/Lymphatic Hematologic/Lymphatic: Denies easy bleeding Allergic/Immunologic Allergic/Immunologic ED: Denies mouth swelling EXAM Physical Exam Narrative Exam Narrative: Well-appearing 84-year-old female. Vital signs stable afebrile. She is sitting upright in bed. at bedside. H EENT exam unremarkable. Neck nontender. Lungs clear to auscultation bilaterally. Heart regular rhythm rate about 70 no murmur. Chest wall nontender. Left-sided pacemaker defibrillator. Abdomen soft nontender. Back nontender. Patient is moving all 4 extremities. She has limited range of motion to her right shoulder. The shoulder itself is not warm or red. There is no discoloration. She has very limited range of motion of the right shoulder. There is no axillary lymphadenopathy. There is no swelling. Distal right humerus, elbow, forearm, wrist and hand are nontender. She has normal flexion extension of her elbow. Normal flexion extension of the right wrist. Normal radial pulse. 5 out of 5 medical insurance claims processor strength normal sensation. Left upper extremity has chronic edema from axillary lymph node dissection. Lower extremities are nontender with normal dorsi plantar flexion. Patient is awake and alert no focal motor deficits. He Const Vital Signs: 09/15/24 07:49 Temperature 98 F Temperature Source Oral Pulse Rate 72 Respiratory Rate 16 Blood Pressure 152/77 H Blood Pressure Mean 102 Pulse Ox 99 Oxygen Delivery Method Room Air Positive well nourished and well developed; Negative for cachectic, contractures or unkempt General Appearance ED: well developed and NAD; Negative for unkempt, cachectic, contractures, cyanotic or diaphoretic Nutritional Appearance: Negative for cachectic HEENT Reports moist mucous membranes normocephalic and atraumatic; Negative for trauma or tenderness Eyes PERRL and EOMs intact bilaterally Neck full ROM and supple Chest Wall inspection of chest normal and palpation of chest normal Resp normal respiratory effort and clear to auscultation bilaterally Cardio regular rate, regular rhythm, S1 normal heart sound, S2 normal heart sound and no murmurs GI non-tender, non-distended and no masses Palpation: soft; Negative for tender, guarding or rebound tenderness present Back/Spine no CVA tenderness Extremity normal to inspection and full ROM Extremity Narrative: Except right shoulder. Painful. Not warm to the touch. Not red. Not swollen. No deformity. Very limited range of motion. The elbow, forearm wrist and hand normal exam. 5 of 5 medical insurance claims processor strength. Normal sensation. Normal radial pulse. Normal range of motion of both the hand, wrist and elbow. Left upper extremity has chronic lymphedema. Neuro oriented x3, CN's II-XII intact bilaterally, moves all extremities and no focal motor deficits Sensorium / Orientation: alert, oriented to person, oriented to place and oriented to time; Negative for orientation impaired, lethargic or stuporous Motor Exam: strength 5/5 throughout Psych mental status grossly normal Appearance: Negative for unkempt Mood & Affect: Negative for depressed, anxious or tearful Skin General Skin Exam: Negative for petechiae Lesions: no lesions Rashes: no rashes MDM MDM MDM Narrative Medical decision making narrative: 84-year-old female awoke this morning with right shoulder pain and limited range of motion. Prior history of 2 years ago for right shoulder replacement. X-ray to be obtained to rule out dislocation. There is no trauma this would be unlikely it is fractured. There is no signs of infection nor any complaints of fever or chills. Patient has an anterior right shoulder dislocation. She has not eaten since well before midnight. She will be consciously sedated with propofol. She will be manually reduced. She will be in a sling. She will follow-up with orthopedics. I discussed the treatment plan with her and her are comfortable with that. No prior history of any problems with anesthesia. Repeat exam patient doing well at 9:45 AM. She is come out of the conscious sedation nicely. She is awake alert. Interacting. Her repeat shoulder x-ray showed a proper reduction of the prior anterior dislocation. No fracture noted. She will be discharged to home with a sling on. Outpatient follow-up with orthopedic physician in [place]. History & Record Review Discussion w/independent historian: Patient and Family Additional record(s) reviewed:: Prior inpatient record, Prior outpatient record, Prior ED visit and Prior labs Radiography Diagnostic Testing: Right shoulder x-ray, 2 views, interpreted by myself shows anterior right prosthetic shoulder dislocation. No fracture. Interpreted by myself. Right shoulder postreduction x-ray 2 views interpreted myself shows a proper reduction of the prior anterior shoulder dislocation. No fracture. Procedures Procedural Sedation 1 (Initial Baseline): Consent Signed: Yes Any Problems With Anesthesia: No You/Your family experience fever (hyperthermia) w/anesthesia: No Sedation medication: Propofol Dose: 60 Route: IV Total Moderate Sedation Units: 20 Maliampati Score: Class II ASA Classification: II Comment:: 84-year-old female right anterior prosthetic shoulder dislocation. We discussed procedural sedation and the procedure itself. She was given 60 mg IV propofol. Within a minute had good procedural sedation. Using traction countertraction the shoulder reduced back into place nicely. There was a nice pop and obvious with movement. It appears to be in appropriate position. Patient remains sedated. Her vital signs have stayed stable the entire time. She is on the monitor. Her pressures been stable as been her her oxygenation of greater than 95% the entire time on oxygen. We will get a postprocedure right shoulder x-ray. And are doing procedural sedation protocol vital signs and one-to-one nursing monitoring. Discharge Plan Triage Chief Complaint: Upper Extremity Injury ED Provider: Koko Hubbard Dx/Rx/DC Orders Clinical Impression: Anterior dislocation of right shoulder Instructions: ED Dislocation: Shoulder (Reduced) Prescriptions: No Action multivitamin Tablet 1 tablet PO DAILY torsemide 20 mg tablet 20 mg PO DAILY digoxin 125 mcg (0.125 mg) tablet 125 mcg PO .Every Other Day leflunomide 10 mg tablet 10 mg PO QDAY Patient Comments: TAKE 1 TABLET BY MOUTH ONCE DAILY ascorbic acid (vitamin C) 500 mg capsule, extended release 500 mg PO DAILY vitamin E mixed 400 unit capsule 400 unit PO DAILY nystatin 100,000 unit/gram powder 1 applic topical BID PRN (Reason: rash) Qty: 60 5RF budesonide 3 mg capsule,delayed,extend.release 3 mg PO QAM PRN Farxiga 10 mg tablet 10 mg PO DAILY doxycycline hyclate 100 mg capsule 100 mg PO BID metoprolol succinate 25 mg tablet extended release 24 hr 25 mg PO DAILY Entresto 97-103 mg tablet 1 tab PO BID calcium carbonate-vitamin D3 1 EACH tablet 1 each PO DAILY Patient Comments: SUPPLEMENT cholecalciferol (vitamin D3) [Vitamin D3] 125 mcg (5,000 unit) Tablet 125 mcg PO DAILY spironolactone 50 mg tablet 50 mg PO DAILY Qty: 90 3RF omeprazole 40 mg capsule,delayed release(DR/EC) 40 mg PO DAILY Qty: 90 3RF simvastatin 40 mg tablet 40 mg PO QPM Qty: 90 3RF allopurinol 300 mg tablet 300 mg PO DAILY Qty: 90 3RF levothyroxine 112 mcg tablet 112 mcg PO DAILY Qty: 90 3RF Primary Care Provider: Annetta Branch Referrals: Annetta Branch MD [Primary Care Provider] - Activity Restrictions/Additional Instructions: Call the office of the orthopedic surgeon in [place] that did your shoulder surgery and follow-up with him this week. Tell them that your shoulder was dislocated and we put it back in place. Keep your sling on except when bathing to prevent redislocation. Call return if any problems. Print Language: Kiswahili Disposition Disposition: Home, Self Care
--- NOTE | 2024-09-15 08:04 | RAD_ITS ---
INDICATION: atraumatic R shoulder pain EXAMINATION/TECHNIQUE: X-RAY - RIGHT XR Shoulder Min 2 Views 4 VIEWS COMPARISON: No relevant prior comparison study available FINDINGS: SOFT TISSUES: No soft tissue swelling or gas. No radiopaque foreign body. BONES/JOINTS: No evidence of acute fracture. Right shoulder arthroplasty. Dislocation of the humeral component posteriorly. The colon cancer joint is unremarkable. No sclerotic or destructive changes observed. RAD/Shoulder min 2 Views IMPRESSION: Dislocation of the glenohumeral arthroplasty. No evidence of acute fracture. Electronically Signed: Rajiv Braga MD at 8:19 EDT ,
--- OUTSIDE RECORDS SUMMARY | 2024-09-15 08:15 | XMS RPT_ITS | CCD ---
Author Organization [facility] Providers Care Office Administration Instructor Name Role Phone Josesito RN, Manju Starr Unavailable Unavailable KATE Bellamy, Manju Starr Unavailable Unavailable Josesito RN, Manju Starr Unavailable Unavailable Josesito RN, Manju Starr Unavailable Unavailable DeFinis, Harumi Y Unavailable Unavailable Tiffany Perkinsi Unavailable Unavailable KATE Bellamy, Manju Starr Unavailable Unavailable PHYSICIAN, NONE Primary Care Physician Unavailab Marquis Pace MD Primary Care Provider [phone] Marquis Branch Primary Care Provider [phone] Marquis Branch MD Primary Care Provider [phone] Marquis Branch Primary Care Provider DR HARIS MAHARAJ MD Attending Unavailabl e PHYSICIAN, NONE Primary Care Unavailable Cherri Villarreal RN Unavailable Unavailable Marquis Branch MD Primary Care Provider Marquis Branch MD Primary Care Provider Cherri Villarreal RN Unavailable Unavailable WALTER GILBERTO Admitting Unavailable WALTER GILBERTO Attending Unavailable MARQUIS BRANCH Primary Care Unavailable BAWWAB, AMEED Consulting Unavailable RJAHBZAIRA, GILBERTO Referring Unavailable MARQUIS BRANCH Primary Care Unavailable ESCHBZAIRA, GILBERTO Referring Unavailable MARQUIS BRANCH Primary Care Unavailable TESTLEROY BONE Referring Unavailable TESTLEROY BONE Attending Unavailable MARQUIS BRANCH Primary Care Unavailable TESTRAWEN, LEROY Referring Unavailable TESTRALEROY CARVER Attending Unavailable MARQUIS BRANCH Primary Care Unavailable TESTRAWEN, LEROY Referring Unavailable MARQUIS BRANCH Primary Care Unavailable TESTRAWEN, LEROY Attending Unavailable MARQUIS BRANCH Primary Care Unavailable TESTTOYIN BONEEW Referring Unavailable FINA, MARQUIS Primary Care Unavailable MONEYPENNY, SREEDHAR Attending Unavailable FINA, MARQUIS Primary Care Unavailable MONEYPENNY, SREEDHAR Attending Unavailable MONEYPENNY, SREEDHAR Referring Unavailable FINA, MARQUIS Primary Care Unavailable FINA, MARQUIS Primary Care Unavailable FINA, MARQUIS Primary Care Unavailable FINA, MARQUIS Primary Care Unavailable FINA, MARQUIS Primary Care Unavailable JEANE CAMPA Attending Unavailable FINA, MARQUIS Primary Care Unavailable JEANE CAMPA Attending Unavailable FINA, MARQUIS Primary Care Unavailable Allergies Allergy Classification Reported Allergen(s) Allergy Type Date of Onset Reaction(s) Facility Acetaminophen / HYDROcodone (1 source) Acetaminophen / HYDROcodone Drug Allergy 06-27-20 19 Vomiting [facility] Adhesive Tape (1 source) Adhesive Tape Substance Allergy 10-22-20 08 Other: See Comments [facility] Amoxicillin / Clavulanate (1 source) Amoxicillin / Clavulanate Drug Allergy 09-13-20 11 Diarrhea [facility] Cephalosporins (antibiotic) (1 source) Cephalexin Drug Allergy 04-27-20 16 Rash [facility] PACLitaxel (1 source) PACLitaxel Drug Allergy 02-12-20 09 [facility] (7 sources) amoxicillin drug allergy 05-18-20 16 rash [facility] Work Phone: [phone] (7 sources) PACLitaxel drug allergy 04-21-20 11 [facility] Work Phone: [phone] (20 sources) Acetaminophen / HYDROcodone; Translations: [HYDROCODONE-ACETA MINOPHEN] Drug Allergy 06-27-20 19 Vomiting, Other, Nausea And Vomiting [facility] (14 sources) Adhesive Tape; Translations: [ADHESIVE TAPE (ROSINS)] Propensity to adverse reactions to substance 10-22-20 08 Other: See Comments [facility] (20 sources) Amoxicillin / Clavulanate; Translations: [AMOXICILLIN-POT CLAVULANATE] Drug Allergy 09-13-20 11 Diarrhea [facility] (20 sources) Cephalexin; Translations: [CEPHALEXIN] Drug Allergy 04-27-20 16 Rash [facility] (14 sources) PACLitaxel; Translations: [PACLITAXEL] Drug Allergy 02-12-20 09 [facility] (13 sources) Nitrofurantoin Drug Allergy 11-02-20 22 Other [facility] (13 sources) PACLitaxel Drug Allergy 02-12-20 09 [facility] (13 sources) Other Propensity to adverse reactions 11-02-20 Other [facility] (13 sources) Wound Dressing Adhesive Drug Intolerance 10-22-20 Other, Itching [facility] Medications Current Medications Medication Drug Class(es) Dates Sig (Normalized) Sig (Original) allopurinol 300 mg oral tablet (20 sources) Xanthine Oxidase Inhibitor Start: 12-24-2020 take 1 tablet by mouth once daily allopurinol (ZYLOPRIM) 300 mg tablet TAKE ONE TABLET BY MOUTH ONCE DAILY FOR GOUT 90 tablet 3 12/24/2020 Active Start: 12-24-2020 allopurinol (Z yloprim) 300 MG tablet Take 40 mg by mouth daily. 0 12/24/2020 Active Comment on above: TAKE ONE TABLET BY M [facility] ONCE DAILY FOR GOUT aspirin 325 mg delayed release oral tablet (20 sources) Platelet Aggregation Inhibitor, Nonsteroidal Anti-inflammatory Drug Start: 04-13-2023 End: 09-11-2023 take 1 tablet by mouth twice daily aspirin, enteric coated (ASPIRIN, ENTERIC COATED) 325 mg EC tablet Take 1 tablet by mouth two times a day for 14 days. 28 tablet 09/11/2023 Active Start: 10-27-2022 take 1 tablet by paul th twice daily aspirin, enteric coated (ASPIRIN, ENTERIC COATED) 325 mg EC tablet Take 1 tablet by mouth twice daily for 14 days. 28 tablet 0 10/27/2022 Active Start: 04-21-2011 take 1 tablet by paul th once daily ASPIRIN 81 MG TABS One tablet by mouth daily ASPIRIN [id number] [facility] Start: 04-21-2011 take 1 tablet by paul th once daily ASPIRIN 81 MG TABS One tablet by mouth daily ASPIRIN [id number] [facility] Start: 04-21-2011 take 1 tablet by paul th once daily ASPIRIN EC 81 MG TBEC One tablet by mouth daily ASPIRIN [id number] Marilou Padilla RN Comment on above: Take 1 tablet by paul th twice daily for 14 days. Take 1 tablet by paul th two times a day for 14 days. budesonide 3 mg delayed release oral capsule (7 sources) Corticosteroid Start: take 1 capsule by mouth once daily, then take 1 capsule by mouth every twenty-four hours budesonide EC (Entocort EC) 3 MG 24 hr capsule Take 3 mg by mouth daily. 08/22/2023 Active Calcium (13 sources) Phosphate Binder, Calcium take 1 tablet by mouth once daily calcium 500 MG tablet Take 500 mg by mouth daily. Active take 1 tablet by mouth once vania y calcium 500 MG tablet Take 500 mg by mouth daily. 0 Active calcium carbonate 1500 mg / cholecalciferol 200 unt oral tablet (13 sources) Vitamin D Start: 10-29-2005 take 1 tablet by mouth once daily at lunch CALCIUM 600 WITH VITAMIN D3 600 MG-200 UNIT TAB Take 1 tablet by mouth daily with lunch. Last dose 03/29/23 on vitamins/ supplements 0 10/29/2005 Active Comment on above: Take 1 tablet by paul th daily with lunch. Last dose 10/12 Take 1 tablet by paul th daily with lunch. Last dose 03/29/23 on vitamins/ supplements cholecalciferol 0.05 mg oral capsule (20 sources) Vitamin D cholecalciferol (Vitamin D-3) 50 MCG (1999 UT) capsule Take by mouth. Active End: 08-08-2016 take 1 tablet by mouth once daily VITAMIN D3 5000 UNIT CAPS One tablet by mouth daily CHOLECALCIFEROL [id number] Viki Joyner dapagliflozin 10 mg oral tablet (20 sources) Sodium-Glucose Cotransporter 2 Inhibitor Start: 02-07-2023 End: 02-06-2025 take 1 tablet by mouth once daily Farxiga 10 MG tablet Indications: Chronic HFrEF (heart failure with reduced ejection fraction) (FORMERLY [facility]) TAKE 1 TABLET BY MOUTH ONCE DAILY FOR CONGESTIVE HEART FAILURE 90 tablet 3 02/07/2024 02/06/2025 Active Comment on above: Take 10 mg by mouth daily with breakfast. digoxin 0.125 mg oral tablet (20 sources) Cardiac Glycoside Start: 05-26-2023 take 1 tablet by mouth every other day digoxin (Lanoxin) 125 MCG tablet Indications: Chronic HFrEF (heart failure with reduced ejection fraction) (HCC) Take 1 tablet (125 mcg) by mouth every other day. 45 tablet 3 11/07/2023 Active Start: 10-24-2022 End: 05-25-2023 take 1 tablet by mouth once daily digoxin (Lanoxin) 125 MCG tablet Take 1 tablet by mouth once daily 30 tablet 3 10/24/2022 05/25/2023 Discontinued (Reorder) Start: 04-21-2011 End: 05-24-2012 take 1 tablet by mouth once daily DIGOXIN 125 MCG TABS One tablet by mouth daily (125mcg) DIGOXIN [id number] Evans Brito MD Comment on above: Take 125 mcg by mout h every other day. Takes in am doxycycline hyclate 100 mg oral capsule (2 sources) Tetracycline-class Drug Start: 024 take 1 capsule by mouth every twelve hours doxycycline hyclate (VIBRAMYCIN) 100 mg capsule Take 1 capsule by mouth every 12 hours. Taking till 06/04/2024 Active leflunomide 10 mg oral tablet (20 sources) Antirheumatic Agent Start: take 1 tablet by mouth once daily leflunomide (Arava) 10 MG tablet Take 10 mg by mouth daily. 10/01/2022 Active Comment on above: Take 10 mg by mouth every evening. Take 10 mg by mouth daily with lunch. levothyroxine sodium 0.112 mg oral tablet (20 sources) l-Thyroxine Start: take 1 tablet by mouth once daily for thyroid dysfunction levothyroxine (Synthroid, Levoxyl) 112 MCG tablet TAKE 1 TABLET BY MOUTH ONCE DAILY FOR THYROID 09/05/2022 Active Start: 12-24-2020 take 1 tablet by paul th once daily levothyroxine (SYNTHROID) 88 mcg tablet Indications: Acquired hypothyroidism TAKE ONE TABLET BY MOUTH ONCE DAILY ON EMPTY STOMACH every Mon, , , Fri, Sat Two tablets every Mon and Wed 114 tablet 3 12/24/2020 Active Start: 01-26-2012 take 1 tablet by paul th once daily LEVOTHROID 100 MCG TABS One tablet by mouth daily LEVOTHYROXINE SODIUM [id number] Evans Brito MD Start: 01-26-2012 take 1 tablet by paul th once daily LEVOTHROID 100 MCG TABS One tablet by mouth daily LEVOTHYROXINE SODIUM [id number] Evans Brito MD Start: 04-21-2011 End: 01-26-2012 take 1 tablet by mouth once daily LEVOTHYROXINE SODIUM 112 MCG TABS One tablet by mouth daily LEVOTHYROXINE SODIUM [id number] Evans Brito MD Comment on above: TAKE ONE TABLET BY M OUTH ONCE DAILY ON EMPTY STOMACH every Mon, Tu, Th, Fri, Sat Two tablets every Sun and Wed MEDICATION, NON-DATABASE (15 sources) MEDICATION, NON- DATABASE 300 mg daily with lunch. Brain Health Support- 2 gummies Last dose 03/29/23 Active MEDICATION, NON- DATABASE 300 mg daily with lunch. Brain Health Support- 2 gummies Last dose 03/29/23 0 Active MEDICATION, NON- DATABASE 300 mg daily with lunch. Brain Health Support- 2 gummies 0 Active MEDICATION, NON- DATABASE 300 mg every morning. Brain Health Support- 2 gummies every morning- last madera 10/12 0 Active MEDICATION, NON- DATABASE daily with lunch. 2 gummies for Hair, Skin and Nails at lunch last dose 10/12 0 Active Comment on above: 300 mg every morning . Brain Health Support- 2 gummies every morning- last madera 10/12 daily with lunch. 2 gummies for Hair, Skin and Nails at lunch last dose 10/12 300 mg daily with [facility]. Brain Health Support- 2 gummies 300 mg daily with [facility]. Brain Health Support- 2 gummies Last dose 03/29/23 24 hr metoprolol succinate 25 mg extended release oral tablet (20 sources) beta-Adrenergic Zo Start: 02-07-2023 End: 03-05-2024 take 1 tablet by mouth once daily metoprolol succinate XL (Toprol-XL) 25 MG 24 hr tablet Indications: Chronic HFrEF (heart failure with reduced ejection fraction) (HCC) TAKE 1 TABLET BY MOUTH ONCE DAILY. DO NOT CRUSH OR CHEW 90 tablet 3 03/05/2024 Active take 1 tablet by paul once daily at bedtime metoprolol tartrate, short acting, (LOPRESSOR) 25 mg tablet Take 25 mg by mouth daily at bedtime. Active metoprolol tartr ate, short acting, (LOPRESSOR) 25 mg tablet Take 12.5 mg by mouth every morning. 0 Active Comment on above: Take 12.5 mg by mout h every morning. Take 25 mg by mouth daily at bedtime. Multiple Vitamins-Minerals (ONE-A-DAY 50 PLUS PO) (13 sources) Multiple Vitamin s-Minerals (ONE-A-DAY 50 PLUS PO) Take by mouth. Active Multiple Vitamin s-Minerals (ONE-A-DAY 50 PLUS PO) Take by mouth. 0 Active Rxtjovsarlbdc-Ca-Fqse-Minera ls (ONE-A-DAY WOMENS FORMULA) 27-0.4 mg ORAL Tab (13 sources) Start: 07-26-2007 take 1 tablet by mouth once daily at lunch Oqhrgrcmscchn-Yb-Avil-Minerals (ONE-A-DAY WOMENS FORMULA) 27-0.4 mg ORAL Tab Take 1 tablet by mouth daily with lunch. Last dose 03/29/23 0 07/26/2007 Active Start: 07-26-2007 take 1 tablet by paul th once daily at lunch Rbvktgrrkjpiq-Rm-Qjsk-Minerals (ONE-A-DA Y WOMENS FORMULA) 27-0.4 mg ORAL Tab Take 1 tablet by mouth daily with lunch. 0 07/26/2007 Active Start: 07-26-2007 take 1 tablet by paul th once daily at lunch Zxqoslkyeukjb-Dn-Xhig-Minerals (ONE-A-DA Y WOMENS FORMULA) 27-0.4 mg ORAL Tab Take 1 tablet by mouth daily with lunch. Last dose 10/12/22 for vitamins and supplements 0 07/26/2007 Active Comment on above: Take 1 tablet by paul th daily with lunch. Last dose 10/12/22 for vitamins and supplements Take 1 tablet by paul th daily with lunch. Take 1 tablet by paul th daily with lunch. Last dose 03/29/23 NON FORMULARY (13 sources) NON FORMULARY da bianca with lunch. 2 gummies for Hair, Skin and Nails at lunch last dose 10/12 Active NON FORMULARY da bianca with lunch. 2 gummies for Hair, Skin and Nails at lunch last dose 10/12 0 Active omeprazole 40 mg delayed release oral capsule (20 sources) Proton Pump Inhibitor Start: 11-24-2020 take 1 capsule by mouth once daily omeprazole (PRILOSEC) 40 mg capsule Indications: Dyspepsia Take 1 capsule by mouth once daily. 90 capsule 3 11/24/2020 Active Comment on above: Take 1 capsule by mo uth once daily. sacubitril 97 mg / valsartan 103 mg oral tablet (20 sources) Angiotensin 2 Receptor Zo Start: 11-07-2023 End: 11-10-2024 take 97-103 mg by mouth twice daily sacubitril-valsarta n (Entresto) 97-103 MG tablet Indications: Chronic HFrEF (heart failure with reduced ejection fraction) (FORMERLY [facility]) Take 1 tablet by mouth 2 times daily. 60 tablet 11 11/07/2023 11/10/2024 Active Start: 02-07-2023 End: 02-07-2024 take 49-51 mg by mouth twice daily sacubitril-valsartan (Entresto) 49-51 MG tablet Indications: Chronic HFrEF (heart failure with reduced ejection fraction) ([facility]) TAKE 1 TABLET BY MOUTH 2 TIMES DAILY 180 tablet 3 02/07/2023 02/07/2024 Active Comment on above: Take 1 tablet by paul twice daily. simvastatin 40 mg oral tablet (20 sources) HMG-CoA Reductase Inhibitor Start: 03-02-20 take 1 tablet by mouth once daily at bedtime simvastatin (ZOCOR) 40 mg tablet Take 1 tablet by mouth daily at bedtime. 03/02/2018 Active Comment on above: Take 1 tablet by paul daily at bedtime. spironolactone 50 mg oral tablet (20 sources) Aldosterone Antagonist Start: 02-08-20 End: 02-27-20 24 take 1 tablet by mouth once daily spironolactone (Aldactone) 50 MG tablet Indications: Chronic HFrEF (heart failure with reduced ejection fraction) ([facility]) Take 1 tablet by mouth once daily 90 tablet 3 02/27/2024 Active Start: 08-11-2014 take 1 tablet by paul th once daily ALDACTONE 25 MG TABS One tablet by mouth daily SPIRONOLACTONE [id number] Diaz Escudero MD Start: 04-21-2011 End: 01-09-2014 take 1 tablet by mouth once daily SPIRONOLACTONE 25 MG TABS One tablet by mouth daily SPIRONOLACTONE [id number] Diaz Escudero MD take 2 tablets by mo [facility] once daily in the morning spironolactone (ALDACTONE) 25 mg tablet Take 50 mg by mouth every morning. Active take 0.5 tablet by m outh once daily ALDACTONE 25 MG TABS Take one-half tablet by mouth daily. SPIRONOLACTONE [id number] Ros Redd NP Comment on above: Take 50 mg by mouth every morning. torsemide 20 mg oral tablet (20 sources) Loop Diuretic Start: 08-08-2024 take 1 tablet by mouth once daily in the morning torsemide (Demadex) 20 MG tablet Indications: Chronic HFrEF (heart failure with reduced ejection fraction) (HCC) TAKE 1 TABLET BY MOUTH ONCE DAILY IN THE MORNING 90 tablet 1 08/08/2024 Active Start: 12-20-2023 End: 08-08-2024 take 2 tablets by mouth once daily in the morning torsemide (Demadex) 20 MG tablet Indications: Chronic HFrEF (heart failure with reduced ejection fraction) (HCC) Take 2 tablets (40 mg) by mouth every morning. 180 tablet 3 12/20/2023 08/08/2024 Discontinued Start: 02-07-2023 End: 12-20-2023 take 1 tablet by mouth in the morning torsemide (Demadex) 20 MG tablet Indications: Chronic HFrEF (heart failure with reduced ejection fraction) (HCC) TAKE 1 TABLET BY MOUTH IN THE MORNING 90 tablet 3 08/25/2023 12/20/2023 Discontinued (Reorder) Comment on above: Take 20 mg by mouth every morning. triamcinolone acetonide 1 mg/ml topical cream (13 sources) Corticosteroid Start: 10-02-2022 triamcinolone (Kenalog) 0.1 % cream APPLY CREAM TOPICALLY TWICE DAILY 10/02/2022 Active Completed/Discontinued Medications Medication Drug Class(es) Dates Sig (Normalized) Sig (Original) acetaminophen 500 mg oral tablet (1 source) take 1 tablet by mouth every eight hours as needed acetaminophen (TYLENOL EXTRA STRENGTH) 500 mg tablet Take 500 mg by mouth every 8 hours as needed. 0 Active Comment on above: Take 500 mg by mouth every 8 hours as needed. 200 actuat albuterol 0.09 mg/actuat metered dose inhaler (14 sources) beta2-Adrenergic Agonist Start: 08-11-2014 End: 01-27-2015 PROAIR HFA 108 (90 Base) MCG/ACT AERS inhale 1-2 puffs q 4 H as needed ALBUTEROL SULFATE [id number] Viki Joyner Start: 08-11-2014 End: 01-27-2015 PROAIR HFA 108 (90 Base) MCG /ACT AERS inhale 1-2 puffs q 4 H as needed ALBUTEROL SULFATE [id number] Viki Joyner Start: 08-11-2014 PROAIR HFA 108 (90 Base) MCG/ACT AERS inhale 1-2 puffs q 4 H as needed ALBUTEROL SULFATE [id number] Martina Preston RN anastrozole 1 mg oral tablet (14 sources) Aromatase Inhibitor Start: 04-21-2011 End: 08-01-2013 take 1 tablet by mouth once daily ARIMIDEX 1 MG TABS One tablet by mouth daily ANASTROZOLE [id number] Diaz Escudero MD calcium carbonate 600 mg / vitamin d 200 unt oral capsule (7 sources) Start: 04-21-2011 take 1 tablet by mouth twice daily CALCIUM CARBONATE-VITAMIN D 600-200 MG-UNIT CAPS One tablet by mouth twice daily CALCIUM CARBONATE-VITAMIN D [id number] Zenaida Arnold carvedilol 12.5 mg oral tablet (7 sources) alpha-Adrenergic Zo, beta-Adrenergic Zo Start: 04-21-2011 take 1 tablet by mouth twice daily COREG 12.5 MG TABS One tablet by mouth twice daily CARVEDILOL [id number] Diaz Escudero MD GLUCOSAMINE-CHONDRO ITIN CAPS (14 sources) Start: 04-21-2011 End: 01-26-2012 take 1 tablet by mouth once daily GLUCOSAMINE-CHONDR OITIN CAPS One tablet by mouth daily GLUCOSAMINE-CHONDR OITIN CAPS [id number] Evans Brito MD Start: 04-21-2011 take 1 tablet by paul th once daily GLUCOSAMINE-CHONDROITIN CAPS One tablet by mouth daily GLUCOSAMINE-CHONDROITIN CAPS [id number] Zenaida Arnold Start: 04-21-2011 End: 01-26-2012 take 1 tablet by mouth once daily GLUCOSAMINE-CHONDROITIN CAPS One tablet by mouth daily GLUCOSAMINE-CHONDROITIN CAPS [id number] Evans Brito MD Start: 04-21-2011 take 1 tablet by paul once daily GLUCOSAMINE-CHONDROITIN CAPS One tablet by mouth daily GLUCOSAMINE-CHONDROITIN CAPS [id number] Zenaida Arnold clotrimazole 10 mg/ml topical cream (14 sources) Azole Antifungal Start: 01-12-2016 End: 04-11-2016 CLOTRIMAZOLE 1 % CREA Apply to affected area twice a day for 14 days CLOTRIMAZOLE [id number] Viki Joyner ergocalciferol 25532 unt oral capsule (14 sources) Provitamin D2 Compound Start: 04-21-2011 End: 11-08-2011 take 1 tablet by mouth every week VITAMIN D (ERGOCALCIFEROL) 24444 UNIT CAPS 1 tablet by mouth weekly ERGOCALCIFEROL [id number] Evans Brito MD Start: 04-21-2011 End: 11-08-2011 take 1 tablet by mouth every week VITAMIN D (ERGOCALCIFEROL) 42423 UNIT CAPS 1 tablet by mouth weekly ERGOCALCIFEROL [id number] Zenaida Arnold 120 actuat fluticasone propionate 0.11 mg/actuat metered dose inhaler (16 sources) Corticosteroid Start: 08-11-2014 End: 10-30-2014 FLOVENT HFA 110 MCG/ACT AERO inhale 1 puff twice daily FLUTICASONE PROPIONATE HFA [id number] Diaz Escudero MD Start: 08-11-2014 End: 10-30-2014 take 1 puff(s) by inhalation twice daily FLOVENT HFA 110 MCG/ACT AERO inhale 1 puff twice daily FLUTICASONE PROPIONATE HFA [id number] Martina Preston RN Start: 08-11-2014 End: 10-30-2014 FLOVENT HFA 110 MCG/ACT AERO inhale 1 puff twice daily FLUTICASONE PROPIONATE HFA [id number] Diaz Escudero MD Start: 08-11-2014 FLOVENT HFA 11 0 MCG/ACT AERO inhale 1 puff twice daily FLUTICASONE PROPIONATE HFA [id number] Martina Preston RN take 1 spray(s) nasa l route once daily in the morning fluticasone (FLONASE) 50 mcg/actuation nasal spray Use 1 Boaz in each nostril every morning. 0 Active Comment on above: Use 1 Boaz in each nostril every morning. 5 ml fulvestrant 50 mg/ml prefilled syringe (14 sources) Estrogen Receptor Antagonist Start: 08-01-2013 End: 07-10-2014 FASLODEX 250 MG/5ML SOLN injected monthly as directed OLAMIDEVESTRANT [id number] Diaz Escudero MD Start: 08-01-2013 End: 07-10-2014 FASLODEX 250 MG/5ML SOLN inj ected monthly as directed OLAMIDEVESTRANT [id number] Diaz Escudero MD Start: 08-01-2013 FASLODEX 250 M G/5ML SOLN injected monthly as directed FULVESTRANT [id number] Diaz Escudero MD furosemide 40 mg oral tablet (20 sources) Loop Diuretic Start: 01-09-2014 take 1 tablet by mouth twice daily LASIX 40 MG TABS One tablet by mouth twice daily FUROSEMIDE [id number] Diaz Escudero MD Start: 04-21-2011 LASIX 40 MG TA BS One half tablet by mouth daily FUROSEMIDE [id number] Diaz Escudero MD letrozole 2.5 mg oral tablet (7 sources) Aromatase Inhibitor Start: 07-10-2014 take 1 tablet by mouth once daily LETROZOLE 2.5 MG TABS One tablet by mouth daily LETROZOLE [id number] Annalee Marti CNP levoFLOXacin 500 mg oral tablet (14 sources) Quinolone Antimicrobial Start: 06-13-2014 End: 07-10-2014 take 1 tablet by mouth once daily LEVAQUIN 500 MG TABS One tablet by mouth daily LEVOFLOXACIN [id number] Diaz Escudero MD MULTIPLE VITAMIN (3 sources) Start: 04-21-2011 take 1 tablet by mouth once daily MULTIVITAMINS TABS One tablet by mouth daily MULTIPLE VITAMIN [id number] Zenaida Arnold MULTIPLE VITAMIN (4 sources) Start: 04-21-2011 take 1 tablet by mouth once daily MULTIVITAMINS TABS One tablet by mouth daily MULTIPLE VITAMIN [id number] Zenaida Arnold Start: 04-21-2011 take 1 tablet by paul once daily MULTIVITAMINS TABS One tablet by mouth daily MULTIPLE VITAMIN 04545752859 Zenaida Arnold nystatin 306984 unt/ml oral suspension (14 sources) Polyene Antifungal Start: 10-12-2016 End: 11-17-2016 NYSTATIN 908428 UNIT/ML SUSP Swish and swallow 5 ml solution four times daily NYSTATIN [id number] Annalee Marti CNP Goqmi-1-JWW-EPA-Fis h Oil 1,000 mg (120 mg-180 mg) cap (2 sources) take [id number] 2174 capsule by mouth once daily at lunch Cdtpi-3-DAZ-EPA-Fi sh Oil 1,000 mg (120 mg-180 mg) cap Take 2 g by mouth daily with lunch. Last dose 10/12 0 Active Comment on above: Take 2 g by mouth da bianca with lunch. Last dose 10/12 POLYETHYLENE GLYCOL 3350 (3 sources) Osmotic Laxative Start: 05-16-2017 MIRALAX PACK Take as directed POLYETHYLENE GLYCOL 3350 [id number] Jose Nunez NP Start: 05-16-2017 MIRALAX PACK T chinyere as directed POLYETHYLENE GLYCOL 3350 [id number] Jose Nunez NP POLYETHYLENE GLYCOL 3350 (3 sources) Start: 05-16-2017 MIRALAX PACK Take as directed POLYETHYLENE GLYCOL 3350 [id number] Jose Nunez NP pravastatin sodium 40 mg oral tablet (14 sources) HMG-CoA Reductase Inhibitor Start: 04-21-2011 take 1-0.5 tablets by mouth at bedtime PRAVACHOL 40 MG TABS 1-1/2 tablets by mouth at bedtime PRAVASTATIN SODIUM [id number] Diaz Escudero MD predniSONE 20 mg oral tablet (3 sources) Start: 06-04-2023 End: 06-08-2023 take 1 tablet by mouth once daily at mealtime predniSONE (DELTASONE) 20 mg tablet Take 1 tablet by mouth once daily for 4 days. Take daily with food. 4 tablet 06/04/2023 06/08/2023 Comment on above: Take 1 tablet by paul th once daily for 4 days. Take daily with food. ramipril 5 mg oral capsule (20 sources) Angiotensin Converting Enzyme Inhibitor Start: 01-20-2014 take 1 tablet by mouth twice daily ALTACE 10 MG CAPS One tablet by mouth twice daily RAMIPRIL [id number] Trudy Kei THAYER Start: 01-20-2014 take 1 tablet by paul th twice daily ALTACE 10 MG CAPS One tablet by mouth twice daily RAMIPRIL [id number] Trudy Kei THAYER Start: 01-20-2014 take 1 tablet by paul th once daily ALTACE 10 MG CAPS One tablet by mouth daily RAMIPRIL [id number] Diaz Escudero MD Start: 01-20-2014 take 1 tablet by paul th once daily ALTACE 10 MG CAPS One tablet by mouth daily RAMIPRIL [id number] Diaz Escudero MD Start: 01-09-2014 take 1 tablet by paul th once daily ALTACE 5 MG CAPS One tablet by mouth daily at noon RAMIPRIL [id number] Martina Preston RN Start: 01-09-2014 take 1 tablet by paul th once daily ALTACE 5 MG CAPS One tablet by mouth daily at noon RAMIPRIL [id number] Martina Preston RN Start: 04-21-2011 take 1 tablet by paul th twice daily ALTACE 5 MG CAPS One tablet by mouth twice daily RAMIPRIL [id number] Diaz Escudero MD Start: 04-21-2011 take 1 tablet by paul th twice daily ALTACE 5 MG CAPS One tablet by mouth twice daily RAMIPRIL [id number] Diaz Escudero MD Problems Active Problems Problem Classification Problem Date Documented Da te Episodic/Chronic Acquired foot deformities (1 source) Acquired left hallux valgus; Translations: [Hallux valgus (acquired), left foot] 01-18-2024 Chronic Cardiac dysrhythmias (7 sources) Supraventricular arrhythmia; Translations: [Supraventricular tachycardia] Onset: 1 04-21-2011 Chronic Chronic kidney disease (20 sources) Chronic kidney disease stage 3B ; Translations: [Stage 3b chronic kidney disease] Onset: 1 12-24-2020 Chronic Conduction disorders (20 sources) Automatic implantable cardiac defibrillator in situ; Translations: [Presence of automatic (implantable) cardiac defibrillator] Onset: 5 08-18-2015 Chronic Congestive heart failure; nonhypertensive (20 sources) Congestive heart failure; Translations: [Systolic heart failure] Onset: 1 Resolved: 4 04-21-2011 Chronic Disorders of lipid metabolism (20 sources) Hyperlipidemia; Translations: [Hyperlipidemia, unspecified] Onset: 6 04-21-2011 Chronic Esophageal disorders (20 sources) Smith's esophagus; Translations: [Smith's esophagus without dysplasia] Onset: 0 06-24-2020 Chronic Essential hypertension (20 sources) Hypertensive disorder; Translations: [Benign essential hypertension] Onset: 1 04-21-2011 Chronic Genitourinary symptoms and ill-defined conditions (20 sources) Female stress incontinence; Translations: [Stress incontinence (female) (male)] Onset: 2 10-29-2005 Chronic Gout and other crystal arthropathies (20 sources) 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; Translations: [Idiopathic chronic gout, right ankle and foot, without tophus (tophi)] Onset: 7 08-19-2017 Chronic Heart valve disorders (20 sources) Mitral valve disorder; Translations: [Non-rheumatic mitral regurgitation ] Onset: 1 04-21-2011 Chronic Mycoses (3 sources) Onychomycosis; Translations: [Tinea unguium] 01-18-2024 Episodic Noninfectious gastroenteritis (2 sources) Noninfective gastroenteritis and colitis, unspecified; Translations: [Noninfective gastroenteritis and colitis, unspecified] Onset: 3 Episodic Nutritional deficiencies (20 sources) Vitamin D deficiency; Translations: [Vitamin D deficiency, unspecified] Onset: 0 09-06-2010 Chronic Osteoarthritis (20 sources) Osteoarthritis of knee; Translations: [Osteoarthritis of knee, unspecified] Onset: 0 09-06-2010 Chronic Other and ill-defined heart disease (7 sources) Cardiomegaly; Translations: [Cardiomegaly] Onset: 4 10-13-2014 Chronic Other connective tissue disease (1 source) Presence of left artificial shoulder joint; Translations: [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)] Onset: 3 Chronic Other connective tissue disease (1 source) Presence of unspecified artificial shoulder joint; Translations: [Unstable reverse total shoulder arthroplasty (HCC)] Onset: 3 Chronic Other connective tissue disease (3 sources) Pain of toe of left foot; Translations: [Pain in left toe(s)] 01-18-2024 Episodic Other connective tissue disease (3 sources) Pain of toe of right foot; Translations: [Pain in right toe(s)] 01-18-2024 Episodic Other connective tissue disease (2 sources) Bilateral calf pain; Translations: [Pain in right lower leg] 08-01-2024 Episodic Other connective tissue disease (1 source) Pain in right lower leg; Translations: [Bilateral calf pain] Onset: 4 Episodic Other connective tissue disease (1 source) Pain in left lower leg; Translations: [Bilateral calf pain] Onset: 4 Episodic Other non-traumatic joint disorders (2 sources) Pain in right hip joint; Translations: [Pain in right hip] 06-04-2023 Episodic Other nutritional; endocrine; and metabolic disorders (17 sources) Body mass index (BMI) 33.0-33.9, adult; Translations: [Body mass index (BMI) 34.0-34.9, adult] Onset: 3 Resolved: 6 05-18-2016 Chronic Other nutritional; endocrine; and metabolic disorders (4 sources) Body mass index (BMI) 34.0-34.9, adult; Translations: [Body mass index (BMI) 34.0-34.9, adult] Onset: 5 05-07-2015 Chronic Other nutritional; endocrine; and metabolic disorders (13 sources) Severe obesity; Translations: [Morbid (severe) obesity due to excess calories] Onset: 0 06-24-2020 Chronic Other nutritional; endocrine; and metabolic disorders (20 sources) Obese class I; Translations: [Obesity, unspecified] Onset: 2 11-02-2022 Chronic Jackie-; endo-; and myocarditis; cardiomyopathy (except that caused by tuberculosis or sexually transmitted disease) (20 sources) Cardiomyopathy in diseases classified elsewhere; Translations: [Dilated cardiomyopathy] Onset: 0 Resolved: 4 04-21-2011 Chronic Phlebitis; thrombophlebitis and thromboembolism (2 sources) Acute deep venous thrombosis of left upper extremity; Translations: [Acute embolism and thrombosis of deep veins of left upper extremity] Onset: 4 05-21-2024 Episodic Pulmonary heart disease (7 sources) Pulmonary hypertension; Translations: [Other secondary pulmonary hypertension] Onset: 4 10-13-2014 Chronic Residual codes; unclassified (8 sources) Sleep apnea; Translations: [Sleep apnea, unspecified] Onset: 3 10-31-2023 Chronic Secondary malignancies (20 sources) 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; Translations: [Secondary and unspecified malignant neoplasm of axilla and upper limb lymph nodes] Onset: 8 10-30-2008 Chronic Spondylosis; intervertebral disc disorders; other back problems (20 sources) Lumbar spondylosis; Translations: [Spondylosis without myelopathy or radiculopathy, lumbar region] Onset: 6 12-18-2015 Chronic Thyroid disorders (20 sources) Iatrogenic hypothyroidism; Translations: [Hypothyroidism] Onset: 6 04-21-2011 Chronic Unclassified (7 sources) Finding of serum tumor marker level; Translations: [Other abnormal tumor markers] Onset: 6 10-07-2016 Unclassified (7 sources) Malignant neoplasm of female breast; Translations: [Malignant neoplasm of female breast] Onset: 4 09-08-2014 Unclassified (4 sources) Long-term drug therapy; Translations: [Other intermediate designer (current) drug therapy] Onset: 1 04-21-2011 Unclassified (1 source) NON DISPLACED FX L Onset: Past or Other Problems Problem Classification Problem Date Documented Date Episodic/Chronic Abdominal pain (20 sources) Female genital organ symptoms; Translations: [Pelvic and perineal pain] Onset: 08-09-2018 08-09-2018 Episodic Cancer of breast (20 sources) Malignant neoplasm of upper-outer quadrant of female breast; Translations: [Carcinoma of breast ] Onset: 07-13-2006 Resolved: 01-02-2017 09-03-2014 Chronic Cancer of breast (13 sources) History of malignant neoplasm of breast; Translations: [Personal history of malignant neoplasm of breast] Onset: 07-09-2012 06-13-2017 Episodic Cardiac dysrhythmias (20 sources) Tachycardia; Translations: [Tachycardia, unspecified] Onset: 07-02-2010 07-02-2010 Episodic Complication of device; implant or graft (8 sources) 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; Translations: [Infection and inflammatory reaction due to other internal joint prosthesis, initial encounter] Onset: 09-06-2023 09-06-2023 Episodic Conditions associated with dizziness or vertigo (20 sources) Lightheadedness; Translations: [Benign paroxysmal positional vertigo] Onset: 08-13-2008 01-09-2014 Episodic Diabetes mellitus without complication (8 sources) Prediabetes; Translations: [Prediabetes] Onset: 10-04-2022 10-31-2023 Episodic Gastritis and duodenitis (20 sources) Gastritis; Translations: [Gastritis, unspecified, without bleeding] Onset: 04-06-2018 04-06-2018 Episodic Neoplasms of unspecified nature or uncertain behavior (7 sources) Neoplasm of lymph node; Translations: [Secondary and unspecified malignant neoplasm of axilla and upper limb lymph nodes] Onset: 09-03-2014 09-03-2014 Episodic Nonmalignant breast conditions (7 sources) Pain of breast; Translations: [Mastodynia] Onset: 09-29-2016 09-29-2016 Episodic Other aftercare (3 sources) Other intermediate designer (current) drug therapy; Translations: [Other custodial (current) drug therapy] Onset: 04-21-2011 04-21-2011 Episodic Other aftercare (13 sources) Drug therapy finding; Translations: [Other custodial (current) drug therapy] Onset: 06-14-2010 06-14-2010 Episodic Other circulatory disease (7 sources) Low blood pressure; Translations: [Hypotension, unspecified] Onset: 01-09-2014 01-09-2014 Episodic Other connective tissue disease (20 sources) Full thickness rotator cuff tear; Translations: [Complete rotator cuff tear or rupture of right shoulder, not specified as traumatic] Onset: 03-17-2017 03-17-2017 Episodic Other lower respiratory disease (14 sources) Dyspnea; Translations: [Shortness of breath] Onset: 06-13-2014 10-06-2016 Episodic Other nervous system disorders (6 sources) Drug-induced polyneuropathy; 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] Onset: 02-25-2009 Resolved: 12-27-2010 12-27-2010 Chronic Other nervous system disorders (1 source) Other acute postprocedural pain; Translations: [Post-op pain] Onset: 09-06-2023 Episodic Other skin disorders (20 sources) Vitiligo; Translations: [Vitiligo] Onset: 07-26-2007 07-26-2007 Episodic Other skin disorders (6 sources) Mass of axilla; Translations: [Localized swelling, mass and lump, unspecified upper limb] Onset: 01-16-2013 Resolved: 05-12-2014 05-12-2014 Episodic Residual codes; unclassified (13 sources) Estrogen receptor positive tumor; Translations: [Estrogen receptor positive status [ER+]] Onset: 01-04-2012 01-04-2012 Episodic Spondylosis; intervertebral disc disorders; other back problems (20 sources) Backache; Translations: [Brachial neuritis] Onset: 11-15-2007 Resolved: 06-13-2017 10-06-2016 Episodic Unclassified (6 sources) Implantation of automatic cardiac defibrillator ; Translations: [Presence of automatic (implantable) cardiac defibrillator] Onset: 04-21-2011 Resolved: 01-09-2014 04-21-2011 Results Test Name Value Interpretation Reference Range Facility 36on 09-10-2024 36 Sounds good, update on Monday! Normal [facility] 36 Phone call to the patient, said that she has noticed more MADERA today as well as abdominal bloating and swelling. No weight change. BP stable but low end of normal (100-110 SBP). Pt does feel she is holding onto extra fluid but also drinking a lot of fluid to flush out the extra fluid/swelling that it in her arm from the the prior surgery where lymph nodes were removed. Pt educated on fluid balance and PO fluid limitations/goals. Pt does feel she is holding onto fluid and would like to take extra torse- she will take extra torse tomorrow and thurs, for a total of 40mg every day (normally takes 20mg every day)- she will call me back Monday with an update. [facility] 36 Called pt to report normal remote check on her ICD. Battery life estimated at 7 months. Plan to see pt in device clinic prior to her appt w/ GERI on 10/22/24. Pt then informed me that she has been having some difficulty with breathing today since around lunch time. Dyspnea w/ exertion. Not in any distress but would like someone to call her back to discuss further please [facility] 36on 08-08-2024 36 OV AM 05/08/24- pendi ng OV GERI 10/22/24 BMP 05/08/24 RX pending [facility] CNOVon 08-01-2024 CNOV Office Visit (PODIWS ) DESIRAE ARCHULETA ([id number]) 1940 F Date Time Provider Department 08/01/24 1:45 PM LEROY DIGGS PODIWS During your visit today, we recorded the following information about you: Paula Parkinson, RN 08/01/2024 2:14 PM Signed Patient presents with: Left Foot - Established Patient, Follow Up, nail care Right Foot - Established Patient, Follow Up, nail care Left Ankle - Established Patient, Pain, Swelling Right Ankle - Established Patient, Pain, Swelling Patient presents for follow up nail care. States that she also has intermittent pain, redness, and swelling to bilateral ankles. New over the last few weeks PRIYA 04/18/24 Leroy Diggs 08/01/2024 2:14 PM Signed Subjective: Patient presents to clinic c/o painful toenails. They state that the nails are especially painful with shoe gear and pressure. Patient states that nails 1-5 b/l are painful. Patient complains of painful ankles/lower extremity b/l. No other pedal complaints at this time. Patient states no change in medications or medical history since last visit. Objective: Patient presents to clinic ambulating in [facility] Vasc: DP and PT pulses are palpable bilateral. CFT is less than 5 seconds bilateral. Skin temperature is warm to cool proximal to distal bilateral. There is severe edema to b/l legs. + calf pain present b/l Neuro: Protective sensation is intact to the foot and toes when tested with the 5.07 SWM bilateral. Vibratory sensation is decreased at the hallux IPJ bilateral. The hallux is downgoing bilateral. Derm: Nails 1-5 b/l are painful, discolored-yellow, thick, crumbly, dystrophic and with subungal debris. Skin is of normal turgor, texture and hair growth is present bilateral. There are callus to left hallux. no ulcerations, scars, verruca or other lesions noted. Ortho: Muscle strength is 5/5 for all pedal groups tested. Ankle joint DF is decreased with the knee extended with no pain or crepitus noted. 1st MPJ ROM is decreased bilateral. Hallux valgus is noted b/l Assessment: (B35.1) Onychomycosis (primary encounter diagnosis) (M79.675) Pain in toe of left foot (M79.674) Pain in toe of right foot (M79.661, M79.662) Bilateral calf pain Plan: Patient was seen and evaluated. Nails 1-5 bilateral were debrided in length and thickness. Discussed pain in ankle/lower leg. Likely related to swelling. Would benefit from compression. Will check ultrasound first to make sure no dvt Patient is to RTC in 3-4 months. Leroy Diggs DPM Referring Provider: LEROY DIGGS [[id number]] Allergies As of Date: 08/01/2024 Noted Allergy Reaction AUGMENTIN (AMOXICILLIN-POT CLAVUL*09/13/2011 6 - Diarrhea Comments: Tolerated cefazolin and ceftriaxone at [facility] in 08/2023 KEFLEX (CEPHALEXIN) 04/27/2016 2 - Rash Comments: Hand and buttocks Tolerated cefazolin and ceftriaxone at [facility] in 08/2023 NORCO (HYDROCODONE-ACETAMINO PHEN) 06/27/2019 11 - Vomiting TAXOL (PACLITAXEL) 02/11/2009 Comments: Anaphylatic Reaction, went to [facility] ER on 02/04/09 ADHESIVE TAPE (ROSINS) 10/22/2008 14 - Other: See Comments Comments: Itching with prolonged use Date Reviewed: 08/01/2024 Reviewed by: Paula Parkinson RN - Fully Assessed Reason for Visit: Established Patient [175] Follow Up [171] nail care [Other] Established Patient [175] Follow Up [171] nail care [Other] Established Patient [175] Pain [78] Swelling [205] Established Patient [175] Pain [78] Swelling [205] Primary Visit Diagnosis:Onychomycosi s [B35.1] Other Visit Diagnoses:Pain in toe of left foot [M79.675] Pain in toe of right foot [M79.674] Bilateral calf pain [M79.661, M79.662] Order(s):US DVT LOWER BILATERAL [[id number]] Order #: [id number] FUTURE Prescriptions as of 08/01/2024 - doxycycline hyclate (VIBRAMYCIN) 100 mg capsule Take 1 capsule by mouth every 12 hours. Taking till august - aspirin, enteric coated (ASPIRIN, ENTERIC COATED) 325 mg EC tablet Take 1 tablet by mouth two times a day for 14 days. - sacubitril-valsartan (ENTRESTO) 49-51 mg tablet Take 1 tablet by mouth twice daily. - dapagliflozin (FARXIGA) 10 mg tablet Take 10 mg by mouth daily with breakfast. - spironolactone (ALDACTONE) 25 mg tablet Take 50 mg by mouth every morning. - digoxin (LANOXIN) 125 mcg (0.125 mg) tablet Take 125 mcg by mouth every other day. Takes in am - metoprolol tartrate, short acting, (LOPRESSOR) 25 mg tablet Take 25 mg by mouth daily at bedtime. - torsemide (DEMADEX) 20 mg tablet Take 20 mg by mouth every morning. - leflunomide (ARAVA) 10 mg tablet Take 10 mg by mouth daily with lunch. - MEDICATION, NON-DATABASE 300 mg daily with lunch. Brain Health Support- 2 gummies Last dose 03/29/23 - allopurinol (ZYLOPRIM) 300 mg tablet TAKE ONE TABLET BY MOUTH ONCE DAILY FOR GOUT - levothyroxine (SYNTHROID) 88 mcg tablet (more content not included)... Normal [facility] DVT LOWER BILon US DVT LOWER AGUSTINA * * *Final Report* * * DATE OF EXAM: Aug 01 2024 3:04PM WRU 1005 - US DVT LOWER AGUSTINA / PROCEDURE REASON: multiple diagnoses * * * * Physician Interpretation * * * * EXAMINATION: RIGHT AND LEFT LOWER EXTREMITY DEEP VENOUS ULTRASOUND WITH DOPPLER IMAGING CLINICAL HISTORY: Bilateral calf pain TECHNIQUE: Grayscale with compression maneuvers, color Doppler and spectral Doppler imaging of the right and left proximal deep veins was performed. Grayscale with compression maneuvers of the right and left peroneal and posterior tibial veins was performed. The right and left great and small saphenous veins were evaluated at their insertion to the deep system. Images were obtained and stored in a permanent archive. MQ: USLEB_1 COMPARISON: None RESULT: RIGHT LOWER EXTREMITY PROXIMAL DEEP VEINS Distal External Iliac, Common Femoral and Proximal Profunda Veins: Compression: Normal Doppler: Normal, spontaneous respirophasic flow. Normal response to augmentation. Femoral vein: Compression: Normal Doppler: Normal, spontaneous respirophasic flow. Normal response to augmentation. Popliteal vein: Compression: Normal Doppler: Normal, spontaneous respirophasic flow. Normal response to augmentation. CALF DEEP VEINS Peroneal veins: Suboptimal visualization. Posterior tibial veins: Suboptimal visualization. Gastrocnemius and Soleal veins: Not imaged. SUPERFICIAL VEINS Great saphenous: Patent and compressible at insertion into common femoral vein; not otherwise assessed. Small Saphenous: Patent and compressible in the proximal calf, not otherwise assessed. LEFT LOWER EXTREMITY PROXIMAL DEEP VEINS Distal External Iliac, Common Femoral and Proximal Profunda Veins: Compression: Normal Doppler: Normal, spontaneous respirophasic flow. Normal response to augmentation. Femoral vein: Compression: Normal Doppler: Normal, spontaneous respirophasic flow. Normal response to augmentation. Popliteal vein: Compression: Normal Doppler: Normal, spontaneous respirophasic flow. Normal response to augmentation. CALF DEEP VEINS Peroneal veins: Suboptimal visualization. Posterior tibial veins: Suboptimal visualization. Gastrocnemius and Soleal veins: Not imaged. SUPERFICIAL VEINS Great saphenous: Patent and compressible at insertion into common femoral vein; not otherwise assessed. Small Saphenous: Patent and compressible in the proximal calf, not otherwise assessed. IMPRESSION: Negative study for proximal DVT in the left and right lower extremities. Negative study for calf DVT in the left and right lower extremities. Negative study for superficial thrombophlebitis in the imaged segments of the left and right lower extremities. Welfare Administrator: [facility] Transcribe Date/Time: Aug 01 2024 3:19P Dictated by : YASMINE GRANDE MD This examination was interpreted and the report reviewed and electronically signed by: YASMINE GRANDE MD on Aug 01 2024 3:21PM EST [id number] Normal [facility] US Lower extremity vein - bi lateralon 08-01-2024 IMPRESSION: Negative study for proximal DVT in the left and right lower extremities. Negative study for calf DVT in the left and right lower extremities. Negative study for superficial thrombophlebitis in the imaged segments of the left and right lower extremities. Welfare Administrator: [facility] Transcribe Date/Time: Aug 01 2024 3:19P Dictated by : YASMINE GRANDE MD This examination was interpreted and the report reviewed and electronically signed by: YASMINE GRANDE MD on Aug 01 2024 3:21PM EST DIVISION OF RADIOLOGY * * *Final Report* * * DATE OF EXAM: Aug 01 2024 3:04PM WRU 1005 - US DVT LOWER AGUSTINA / PROCEDURE REASON: multiple diagnoses * * * * Physician Interpretation * * * * EXAMINATION: RIGHT AND LEFT LOWER EXTREMITY DEEP VENOUS ULTRASOUND WITH DOPPLER IMAGING CLINICAL HISTORY: Bilateral calf pain TECHNIQUE: Grayscale with compression maneuvers, color Doppler and spectral Doppler imaging of the right and left proximal deep veins was performed. Grayscale with compression maneuvers of the right and left peroneal and posterior tibial veins was performed. The right and left great and small saphenous veins were evaluated at their insertion to the deep system. Images were obtained and stored in a permanent archive. MQ: USLEB_1 COMPARISON: None RESULT: RIGHT LOWER EXTREMITY PROXIMAL DEEP VEINS Distal External Iliac, Common Femoral and Proximal Profunda Veins: Compression: Normal Doppler: Normal, spontaneous respirophasic flow. Normal response to augmentation. Femoral vein: Compression: Normal Doppler: Normal, spontaneous respirophasic flow. Normal response to augmentation. Popliteal vein: Compression: Normal Doppler: Normal, spontaneous respirophasic flow. Normal response to augmentation. CALF DEEP VEINS Peroneal veins: Suboptimal visualization. Posterior tibial veins: Suboptimal visualization. Gastrocnemius and Soleal veins: Not imaged. SUPERFICIAL VEINS Great saphenous: Patent and compressible at insertion into common femoral vein; not otherwise assessed. Small Saphenous: Patent and compressible in the proximal calf, not otherwise assessed. LEFT LOWER EXTREMITY PROXIMAL DEEP VEINS Distal External Iliac, Common Femoral and Proximal Profunda Veins: Compression: Normal Doppler: Normal, spontaneous respirophasic flow. Normal response to augmentation. Femoral vein: Compression: Normal Doppler: Normal, spontaneous respirophasic flow. Normal response to augmentation. Popliteal vein: Compression: Normal Doppler: Normal, spontaneous respirophasic flow. Normal response to augmentation. CALF DEEP VEINS Peroneal veins: Suboptimal visualization. Posterior tibial veins: Suboptimal visualization. Gastrocnemius and Soleal veins: Not imaged. SUPERFICIAL VEINS Great saphenous: Patent and compressible at insertion into common femoral vein; not otherwise assessed. Small Saphenous: Patent and compressible in the proximal calf, not otherwise assessed. DIVISION OF RADIOLOGY Provider, [facility] - 08/01/2024 * * *Final Report* * * DATE OF EXAM: Aug 01 2024 3:04PM [facility] 1005 - US DVT LOWER AGUSTINA / PROCEDURE REASON: multiple diagnoses * * * * Physician Interpretation * * * * EXAMINATION: RIGHT AND LEFT LOWER EXTREMITY DEEP VENOUS ULTRASOUND WITH DOPPLER IMAGING CLINICAL HISTORY: Bilateral calf pain TECHNIQUE: Grayscale with compression maneuvers, color Doppler and spectral Doppler imaging of the right and left proximal deep veins was performed. Grayscale with compression maneuvers of the right and left peroneal and posterior tibial veins was performed. The right and left great and small saphenous veins were evaluated at their insertion to the deep system. Images were obtained and stored in a permanent archive. MQ: USLEB_1 COMPARISON: None RESULT: RIGHT LOWER EXTREMITY PROXIMAL DEEP VEINS Distal External Iliac, Common Femoral and Proximal Profunda Veins: Compression: Normal Doppler: Normal, spontaneous respirophasic flow. Normal response to augmentation. Femoral vein: Compression: Normal Doppler: Normal, spontaneous respirophasic flow. Normal response to augmentation. Popliteal vein: Compression: Normal Doppler: Normal, spontaneous respirophasic flow. Normal response to augmentation. CALF DEEP VEINS Peroneal veins: Suboptimal visualization. Posterior tibial veins: Suboptimal visualization. Gastrocnemius and Soleal veins: Not imaged. SUPERFICIAL VEINS Great saphenous: Patent and compressible at insertion into common femoral vein; not otherwise assessed. Small Saphenous: Patent and compressible in the proximal calf, not otherwise assessed. LEFT LOWER EXTREMITY PROXIMAL DEEP VEINS Distal External Iliac, Common Femoral and Proximal Profunda Veins: Compression: Normal Doppler: Normal, spontaneous respirophasic flow. Normal response to augmentation. Femoral vein: Compression: Normal Doppler: Normal, spontaneous respirophasic flow. Normal response to augmentation. Popliteal vein: Compression: Normal Doppler: Normal, spontaneous respirophasic flow. Normal response to augmentation. CALF DEEP VEINS Peroneal veins: Suboptimal visualization. Posterior tibial veins: Suboptimal visualization. Gastrocnemius and Soleal veins: Not imaged. SUPERFICIAL VEINS Great saphenous: Patent and compressible at insertion into common femoral vein; not otherwise assessed. Small Saphenous: Patent and compressible in the proximal calf, not otherwise assessed. IMPRESSION IMPRESSION: Negative study for proximal DVT in the left and right lower extremities. Negative study for calf DVT in the left and right lower extremities. Negative study for superficial thrombophlebitis in the imaged segments of the left and right lower extremities. Welfare Administrator: PSCB Transcribe Date/Time: Aug 01 2024 3:19P Dictated by : YASMINE GRANDE MD This examination was interpreted and the report reviewed and electronically signed by: YASMINE GRANDE MD on Aug 01 2024 3:21PM EST [facility] Radiology Study observation (narrative) [facility] Lower extremity vein - bi lateralOrdered By: Ccf Provider on 08-01-2024 [facility] US ARM VEIN DVT UNL VAS LABo n 05-21-2024 US ARM VEIN DVT UNL VAS LAB Non-Invasive Vascular Laboratory [facility] Upper Extremity Venous Duplex Unilateral - Left Date of service/time: 05/21/2024 1:15:21 PM Name: MRS. DESIRAE ARCHULETA Date: 1940 Age: 83 years Gender: F Clinical Indication Upper extremity swelling. TECHNIQUE -------- A venous duplex ultrasound examination was performed, including grayscale imaging with compression maneuvers and color Doppler and spectral Doppler examination with augmentation maneuvers and response to respiration of the below mentioned veins. FINDINGS -------- LEFT SIDE Internal jugular vein Doppler: normal flow. Compression: normal. Subclavian vein Doppler: normal flow. Compression: normal. Axillary vein Doppler: normal flow. Compression: normal. Brachial vein Doppler: normal flow. Compression: normal. Basilic vein Compression: normal. Cephalic vein Compression: normal. Radial vein Compression: normal. Ulnar vein Compression: normal. IMPRESSION RIGHT SIDE - DEEP VEINS Spontaneous and respirophasic flow noted in the subclavian vein. LEFT SIDE - DEEP VEINS Negative for acute deep vein thrombosis. LEFT SIDE - SUPERFICIAL VEINS Negative for superficial thrombophlebitis in the basilic vein and cephalic vein. Technologist: Tiffanie Saenz Ordering physician: GILBERTO WATSON Interpreting physician: Haris Aparicio MD Final CC [employer] Monitoring Image : [id number] See Link below for Image Normal [facility] US Upper extremity veinson 0 05-21-2024 Non-Invasive Vascular Laboratory [facility] Upper Extremity Venous Duplex Unilateral - Left Date of service/time: 05/21/2024 1:15:21 PM Name: MRS. DESIRAE ARCHULETA Date: 1940 Age: 83 years Gender: F Clinical Indication Upper extremity swelling. TECHNIQUE -------- A venous duplex ultrasound examination was performed, including grayscale imaging with compression maneuvers and color Doppler and spectral Doppler examination with augmentation maneuvers and response to respiration of the below mentioned veins. FINDINGS -------- LEFT SIDE Internal jugular vein Doppler: normal flow. Compression: normal. Subclavian vein Doppler: normal flow. Compression: normal. Axillary vein Doppler: normal flow. Compression: normal. Brachial vein Doppler: normal flow. Compression: normal. Basilic vein Compression: normal. Cephalic vein Compression: normal. Radial vein Compression: normal. Ulnar vein Compression: normal. IMPRESSION RIGHT SIDE - DEEP VEINS Spontaneous and respirophasic flow noted in the subclavian vein. LEFT SIDE - DEEP VEINS Negative for acute deep vein thrombosis. LEFT SIDE - SUPERFICIAL VEINS Negative for superficial thrombophlebitis in the basilic vein and cephalic vein. Technologist: Tiffanie Saenz Ordering physician: GILBERTO WATSON Interpreting physician: Haris Aparicio MD Final See Link below for Image [facility] 36on 05-14-2024 36 Spoke with patient, she denies shortness of breath, orthopnea, and all symptoms of HF aside from some swelling that was present at last OV. She is now back on her maintenance torsemide 20 mg daily. She only appeared mildly hypervolemic at last OV. NT Pro BNP 676, one of the lowest values in 2 years. Renal function with Scr 0.9, BUN 29, Na and K+ WNL- baseline. She will continue her maintenance diuretic for now and watch how much fluid intake she has. She will call if Sx of HF develop. [facility] 36 Called Pt back for a CU, Pt states she has been off of the extra Torse Sun/Mon/Tu, since then she has started to swell back up . Pt states her hands/ feet are puffy and tight, her abd is swelled, she has increasing fatigue. Pt weight today was 184# and she was up 18# at her PRIYA on 05/08 when her weight was 185#. Pt denies: SOB, Orthopnea, Cough, Palpitations, CP, Changes in UOP, Lightheadedness/ dizziness. Pt states her BP yesterday her SBP was 145 today her SBP is 113, Pt HR has been high 90-100's. Let the Pt know I would touch base with AM and call her back. Pt confirmed understanding. [facility] 36 PT states that she w as to call this week with an update [facility] BASIC METABOLIC PANELon 04-204 Anion gap [Moles/Vol] 8 mmol/L Normal 3-13 [facility] Comment on above: Performed By: #### L AB15, [id number] ####Reduction Furnace Operator: LORENA BAH ([phone])[facility] ([facility])[address] [place] [address] Calcium [Mass/Vol] 9.3 mg/dL Normal 8.4-10.4 [facility] Comment on above: Performed By: #### L AB15, [id number] ####Reduction Furnace Operator: LORENA BAH ([id number])[facility] ([facility])[address] [place] [address] Chloride [Moles/Vol] 104 mmol/L Normal 98-107 [facility] Comment on above: Performed By: #### L AB15, [id number] ####Reduction Furnace Operator: LORENA BAH ([id number])[facility] ([facility])[address] [place] [address] CO2 [Moles/Vol] 25 mmol/L Normal 22-30 [facility] Comment on above: Performed By: #### L AB15, [id number] ####Reduction Furnace Operator: LORENA BAH ([phone])[facility] ([facility])[address] [place] [address] Creatinine [Mass/Vol] 0.96 mg/dL Normal 0.52-1.04 [facility] Comment on above: Performed By: #### L AB15, [id number] ####Reduction Furnace Operator: LORENA BAH ([phone])[facility] ([facility])[address] [place] [address] [place] GLOMERULAR FILTRATION RATE ML/MIN/1.73 SQ M.PREDICTED 59.6 mL/min/1.73m*2 Low >60.0 [facility] Comment on above: Result Comment: Calc ulation based on the Chronic Kidney Disease Epidemiology Collaboration (CKD-EPI) equation refit without adjustment for race Performed By: #### L AB15, [id number] ####Reduction Furnace Operator: LORENA BAH ([phone])[facility] ([facility])[address] [place] [address] Glucose [Mass/Vol] 113 mg/dL High 70-100 [facility] Comment on above: Performed By: #### L AB15, [id number] ####Reduction Furnace Operator: LORENA BAH ([id number])[facility] ([facility])[address] [place] [address] Potassium [Moles/Vol] 3.7 mmol/L Normal 3.5-5.1 [facility] Comment on above: Performed By: #### L AB15, [id number] ####Reduction Furnace Operator: LORENA BAH ([phone])[facility] ([facility])[address] [place] [address] Sodium [Moles/Vol] 136 mmol/L Normal 135-145 [facility] Comment on above: Performed By: #### L AB15, [id number] ####Reduction Furnace Operator: LORENA BAH ([phone])[facility] ([facility])[address] [place] [address] Urea nitrogen [Mass/Vol] 29 mg/dL High 7-17 [facility] Comment on above: Performed By: #### L AB15, [id number] ####Reduction Furnace Operator: LORENA BAH ([phone])[facility] ([facility])[address] [place] [address] Basic metabolic 1998 panelon 05-08-2024 Anion gap [Moles/Vol] 8 mmol/L 3 - 13 mmol/L [facility] Calcium [Mass/Vol] 9.3 mg/dL 8.4 - 10. 4 mg/dL [facility] Chloride [Moles/Vol] 104 mmol/L 98 - 10 7 mmol/L [facility] CO2 [Moles/Vol] 25 mmol/L 22 - 30 mmol/L [facility] Creatinine [Mass/Vol] 0.96 mg/dL 0.52 - 1.04 mg/dL [facility] GFR/1.73 sq M.predicted MDRD (S/P/Bld) [Vol rate/Area] 59.6 mL/min/{1.73_m2} Low - PINF [facility] Comment on above: Calculation based on the Chronic Kidney Disease Epidemiology Collaboration (CKD-EPI) equation refit without adjustment for race Glucose [Mass/Vol] 113 mg/dL High 70 - 100 mg/dL [facility] Interpretation and review of laboratory results Abnormal [facility] Potassium [Moles/Vol] 3.7 mmol/L 3.5 - 5.1 mmol/L [facility] Sodium [Moles/Vol] 136 mmol/L 135 - 145 mmol/L [facility] Urea nitrogen [Mass/Vol] 29 mg/dL High 7 - 17 mg/dL [facility] DIGOXINon 05-08-2024 Digoxin [Mass/Vol] ng/mL Low 0.8-2.0 [facility] Comment on above: Performed By: #### L AB23 #### Reduction Furnace Operator: LORENA BAH ([phone]) [facility]) [address] [place] [address] Digoxin levelon 05-08-2024 Digoxin [Mass/Vol] ng/mL Low 0.8 - 2.0 ng/mL [facility] Interpretation and review of laboratory results Abnormal [facility] NT PRO BNPon 05-08-2024 Natriuretic peptide B (Bld) [Mass/Vol] 676 pg/mL High <450 [facility] Comment on above: Performed By: #### L AB15, [id number] ####Reduction Furnace Operator: LORENA BAH ([id number])[facility] ([facility])[address] [place] [address] Natriuretic peptide B [Mass/ Vol]Ordered By: Ana Ledesma on 05-08-2024 Interpretation and review of laboratory results Abnormal [facility] Natriuretic peptide B (Bld) [Mass/Vol] 676 pg/mL High NINF - 450 pg/mL [facility] Office Visiton 05-08-2024 Follow-up visit [id number] Desirae Archuleta 1940 F Date Provider Department Center 05/08/2024 [facility] [address] Family History Problem Relation Age of Onset Cancer Mother Heart failure Mother Aneurysm Mother Heart disease Brother Heart disease Brother Family Status - Relation Status Age at Mother Father Brother Brother Level of Service:14621 [place] OFFICE/OUTPATIENT ESTABLISHED MOD MDM 30 MIN Reason for Visit and Comments: 6 Month Follow-up [671] [facility] PATINSon 05-08-2024 DEMARIO Palm you are dagmar lugo onto a little extra fluid today -We will get your labs from last week sent to us for my review, if stable, we will have you take two torsemide 20 mg tablets for 3 days -Please call me if anything changes Remember, you have a diagnosis of Heart Failure . This means your heart does not pump blood as efficiently as it should. You need to be careful about holding on to extra fluid/water. You should: 1) Weigh yourself every day (first thing in the morning after you void/urinate). Take note of your weight. If you gain more than 3 lbs in 1 day, or 5 lbs in 1 week, take 1 extra fluid pill to help you pee off some water, you can let our office know. 2) Do NOT drink fluids in excess. In general we ask heart failure patients to try to not drink more than 2000 mL (a 2 Liter bottle) per day. This can vary depending on what you do that day however. 3) If you develop symptoms of fluid congestion , which include trouble breathing, difficulty breathing while exercising, difficulty breathing while laying flat, leg or belly swelling, or weight gain -- please call our office [phone] [facility] CNOVon 04-18-2024 CNOV Office Visit (PODIWS ) DESIRAE ARCHULETA ([id number]) 1940 F Date Time Provider Department 04/18/24 1:00 PM LEROY DIGGS PODIWS During your visit today, we recorded the following information about you: Mary Kurtz LPN 04/18/2024 1:32 PM Signed AMB ROOMING INTAKE FLOWSHEET DATA Patient presents with: Left Foot - Established Patient, Follow Up, nail care Right Foot - nail care , Established Patient, Follow Up FLACA An Matthew 04/18/2024 1:32 PM Signed Subjective: Patient presents to clinic c/o painful toenails. They state that the nails are especially painful with shoe gear and pressure. Patient states that nails 1-5 b/l are painful. Does have rash to b/l hands as the result of being prescribed doxycycline for infected should. No other pedal complaints at this time. Patient states no change in medications or medical history since last visit. Objective: Patient presents to clinic ambulating in [facility] Vasc: DP and PT pulses are palpable bilateral. CFT is less than 5 seconds bilateral. Skin temperature is warm to cool proximal to distal bilateral. There is no edema or varicosities noted. Neuro: Protective sensation is intact to the foot and toes when tested with the 5.07 SWM bilateral. Vibratory sensation is decreased at the hallux IPJ bilateral. The hallux is downgoing bilateral. Derm: Nails 1-5 b/l are painful, discolored-yellow, thick, crumbly, dystrophic and with subungal debris. Skin is of normal turgor, texture and hair growth is present bilateral. There are callus to left 1st metatarsal. N o other wounds or callus noted. Ortho: Muscle strength is 5/5 for all pedal groups tested. Ankle joint DF is decreased with the knee extended with no pain or crepitus noted. 1st MPJ ROM is decreased bilateral. Bunion is present b/l feet Assessment: (B35.1) Onychomycosis (primary encounter diagnosis) (M79.675) Pain in toe of left foot (M79.674) Pain in toe of right foot Plan: Patient was seen and evaluated. Nails 1-5 bilateral were debrided in length and thickness. Callus reduced to left 1st metatarsal with dremmel. Offered steroid cream for hands. Patient is going to discuss with pcp. Patient is to RTC in 3-4 months. Leroy Diggs DPM Referring Provider: LEROY DIGGS [[id number]] Allergies As of Date: 04/18/2024 Noted Allergy Reaction AUGMENTIN (AMOXICILLIN-POT CLAVUL*09/13/2011 6 - Diarrhea Comments: Tolerated cefazolin and ceftriaxone at [facility] in 08/2023 KEFLEX (CEPHALEXIN) 04/27/2016 2 - Rash Comments: Hand and buttocks Tolerated cefazolin and ceftriaxone at [facility] in 08/2023 NORCO (HYDROCODONE-ACETAMINO PHEN) 06/27/2019 11 - Vomiting TAXOL (PACLITAXEL) 02/11/2009 Comments: Anaphylatic Reaction, went to [facility] ER on 02/04/09 ADHESIVE TAPE (ROSINS) 10/22/2008 14 - Other: See Comments Comments: Itching with prolonged use Date Reviewed: 04/18/2024 Reviewed by: Mary Kurtz LPN - Fully Assessed Reason for Visit: Established Patient [175] Follow Up [171] nail care [Other] nail care [Other] Established Patient [175] Follow Up [171] Primary Visit Diagnosis:Onychomycosi s [B35.1] Other Visit Diagnoses:Pain in toe of left foot [M79.675] Pain in toe of right foot [M79.674] Prescriptions as of 04/18/2024 - aspirin, enteric coated (ASPIRIN, ENTERIC COATED) 325 mg EC tablet Take 1 tablet by mouth two times a day for 14 days. - sacubitril-valsartan (ENTRESTO) 49-51 mg tablet Take 1 tablet by mouth twice daily. - dapagliflozin (FARXIGA) 10 mg tablet Take 10 mg by mouth daily with breakfast. - spironolactone (ALDACTONE) 25 mg tablet Take 50 mg by mouth every morning. - digoxin (LANOXIN) 125 mcg (0.125 mg) tablet Take 125 mcg by mouth every other day. Takes in am - metoprolol tartrate, short acting, (LOPRESSOR) 25 mg tablet Take 25 mg by mouth daily at bedtime. - torsemide (DEMADEX) 20 mg tablet Take 20 mg by mouth every morning. - leflunomide (ARAVA) 10 mg tablet Take 10 mg by mouth daily with lunch. - MEDICATION, NON-DATABASE 300 mg daily with lunch. Brain Health Support- 2 gummies Last dose 03/29/23 - allopurinol (ZYLOPRIM) 300 mg tablet TAKE ONE TABLET BY MOUTH ONCE DAILY FOR GOUT - levothyroxine (SYNTHROID) 88 mcg tablet TAKE ONE TABLET BY MOUTH ONCE DAILY ON EMPTY STOMACH every Mon, Tu, Thurs, Fri, Sat Two tablets every Mon and Mon - omeprazole (PRILOSEC) 40 mg capsule Take 1 capsule by mouth once daily. - simvastatin (ZOCOR) 40 mg tablet Take 1 tablet by mouth daily at bedtime. - Diesotcvpfdtq-Fx-Eust- Minerals (ONE-A-DAY WOMENS FORMULA) 27-0.4 mg ORAL Tab Take 1 tablet by mouth daily with lunch. Last dose 03/29/23 - CALCIUM 600 WITH VITAMIN D3 600 MG-200 UNIT TAB Take 1 tablet by mouth daily with lunch. Last dose 03/29/23 on vitamins/ supplements Problem List As Of Date 04/18/2024 Noted Resolved E (more content not included)... Normal [address] 03-05-2024 36 OV GERI 12/20/23- pendi ng OV with AM 05/08/24 RX pending Normal [place] [address]on 02-27-2024 36 OV GERI 12/20/23- pendi ng OV with AM 05/08/24 BMP 12/27/23 RX pending Normal [place] [address]on 02-07-2024 36 OV GERI 12/20/23- pendi ng ov with AM 05/08/24 BMP 12/27/23 RX pending Normal [facility] CNOVon 01-18-2024 CNOV Office Visit (PODIWS ) DESIRAE ARCHULETA ([id number]) 1940 F Date Time Provider Department 01/18/24 9:30 AM LEROY DIGGS PODIWS During your visit today, we recorded the following information about you: Kati Carter, RN 01/18/2024 10:13 AM Signed Patient presents with: Left Foot - New: nail care Right Foot - New: nail care AMB ROOMING INTAKE FLOWSHEET DATA Risk Screening Do you have concerns about personal safety or safety in the home?: No Leroy Diggs 01/18/2024 10:13 AM Signed Initial Office Visit Subjective: This 83 year old fmelae presents to clinic for diabetic foot check. Patient has the following complaints: painful great toenail, right hallux. Patient presents to clinic for evaluation of b/l feet. Her greatest complaint is pain in right great toenail. She is here requesting nail debridement. Patient denies diabetes but does report numbness in her foot. Patient - pain in legs when walking. No other pedal complaints at this time. No change in medications or medical history since last visit. PAIN EVALUATION No data found in the last 1 encounters. Hemoglobin A1C Date Value 03/16/2023 6.0 % 10/04/2022 6.2 % 08/19/2017 6.4 PCP: Marquis Branch MD PAST MEDICAL HISTORY Diagnosis Date Anemia runs [...] 1994, 2007, 2012-Oncologist Dr. 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 sacubitril-valsartan (ENTRESTO) 49-51 mg tablet Take 1 [...] Mon, Sat Two tablets every Mon and Mon (Patient taking differently: Take 112 mcg by mouth every morning.) omeprazole (PRILOSEC) 40 mg capsule Take 1 capsule by mouth once daily. (Patient taking differently: Take 40 mg by mouth every morning.) simvastatin (ZOCOR) 40 mg tablet Take 1 tablet by mouth daily at bedtime. Hqjtnvsdskaqw-Az-Jqqq- Minerals (ONE-A-DAY WOMENS FORMULA) 27-0.4 mg ORAL Tab Take 1 tablet by mouth daily with lunch. Last dose 03/29/23 CALCIUM 600 WITH VITAMIN D3 600 MG-200 UNIT TAB Take 1 tablet by mouth daily with lunch. Last dose 03/29/23 on vitamins/ supplements No current facility-administered medications for this visit. ALLERGIES Allergen Reactions Augmentin [Amoxicil* Diarrhea Tolerated cefazolin and ceftriaxone at [facility] in 08/2023 Keflex [Cephalexin] Rash Hand and buttocks Tolerated cefazolin and ceftriaxone at [facility] in 08/2023 [place] [Hydrocodone-* Vomiting Taxol [Paclitaxel] Anaphylatic Reaction, went to [facility] ER on 02/04/09 Adhesive Tape (Malaika* Other: See Comments Itching with prolonged use PAST SURGICAL HISTORY Procedure Laterality Hai (more content not included)... Normal [facility] 36on 01-17-2024 36 S: Patient spoke anshul h [facility] nurse regarding rhinorrhea B: Onset of symptoms/concern 3 weeks A: Patient states they have had a runny nose with sinus congestion for 3 weeks. States nose is getting sore from blowing it so much. Denies fever, denies shortness of breath, denies ear pain or congestion, denies sore throat. States they have used OTC antihistamine and ineffective. R: Patient understands care advice to utilize petroleum jelly under nose twice daily to moisturize, utilize OTC saline nasal spray per package directions and use of Neti Pot. If no relief patient advised to contact primary physician and schedule visit in 1-2 days. No further needs at this time. Patient instructed to call back with new or worsening symptoms. Reason for Disposition Nasal discharge present > 10 days Protocols used: Sinus Pain or Eregxtponv-ZWHCS-[id number] Normal [facility] Office Visiton 12-20-2023 Follow-up visit [id number] Desirae Archuleta 1940 F Date Provider Department Center 12/20/2023 [id number][facility] [address] Family History Problem Relation Age of Onset Cancer Mother Heart failure Mother Aneurysm Mother Heart disease Brother Heart disease Brother Family Status - Relation Status Age at Mother Father Brother Brother Level of Service:32706 NC OFFICE/OUTPATIENT ESTABLISHED LOW MDM 20 MIN Reason for Visit and Comments: Follow-up [601281] Congestive Heart Failure [127] Edema [[id number]] Normal [facility] PATINSon 12-20-2023 PATINS Increase Torsemide t o 40 mg daily for the rest of the week Labs on Monday If you start to notice you are back to dry weight or dehydrated -- then decrease back to 20 mg daily Call with any issues Normal [facility] Progress Noteon 12-20-2023 Progress Note NYHA Class 2 ACC/AHA Stage C HFrEF, with LVEF 35% (3+ MR, OSH echo in PACS 08/2023) Etiology: NICM Previous Therapies Beta-blockade: Metoprolol 25 mg daily (Digoxin 125 mcg every other day) ACEi/ARB/ARNI: Entresto 97/103 mg BID Aldosterone Antagonist: Spironolactone 50 mg daily Hydralazine/ISDN: None SGLT2i: Farxiga 10 mg daily Diuretic: Torsemide 20 mg daily ICD: Yes CATERER HELPER: No Cardiac rehab: Declined -- She appears only mildly volume overloaded today with her legs. She has clear lungs, no orthopnea flat neck veins. -- I did advise that she could continue on torsemide 40 mg daily for the next several days and reduce back to 20 mg daily when she is closer to her dry weight. -- No further medication titration at this point in time. -- I do believe some of her weight gain is likely not volume related -- If her symptoms continue to progress or she has recurrent issues with volume control and weight gain we may have to consider evaluation on her mitral valve sooner Normal [facility] Progress Note [facility] [address] [facility] [address] Dept: [phone] Dept Loc: [phone] Visit type: Established patient Reason for Visit: Follow-up, Congestive Heart Failure, and Edema Assessment and Plan 1. Chronic HFrEF (heart failure with reduced ejection fraction) ([facility]) Assessment & Plan: NYHA Class 2 ACC/AHA Stage C HFrEF, with LVEF 35% (3+ MR, OSH echo in PACS 08/2023) Etiology: NICM Previous Therapies Beta-blockade: Metoprolol 25 mg daily (Digoxin 125 mcg every other day) ACEi/ARB/ARNI: Entresto 97/103 mg BID Aldosterone Antagonist: Spironolactone 50 mg daily Hydralazine/ISDN: None SGLT2i: Farxiga 10 mg daily Diuretic: Torsemide 20 mg daily ICD: Yes CATERER HELPER: No Cardiac rehab: Declined -- She appears only mildly volume overloaded today with her legs. She has clear lungs, no orthopnea flat neck veins. -- I did advise that she could continue on torsemide 40 mg daily for the next several days and reduce back to 20 mg daily when she is closer to her dry weight. -- No further medication titration at this point in time. -- I do believe some of her weight gain is likely not volume related -- If her symptoms continue to progress or she has recurrent issues with volume control and weight gain we may have to consider evaluation on her mitral valve sooner Orders: - Basic metabolic panel - NT PRO BNP - torsemide (Demadex) 20 MG tablet; Take 2 tablets (40 mg) by mouth every morning., Starting Mon12/20/2023, Normal No follow-ups on file. Follow-up as planned with Sreedhar and the summer, earlier with me if needed Subjective HPI Desirae Archuleta is a 83 y.o. female who presents for an urgent visit. I originally saw her for second opinion of her congestive heart failure. She reports a long history of heart failure with reduced ejection fraction, she believes > 10 years. She has a strong family history. I received records from [place] that I personally viewed. She had a coronary angiogram performed in 2021 which showed no obstructive coronary artery disease, she had an echocardiogram which reported left ventricular ejection fraction of 35% with at least 2+ eccentric mitral regurgitation as well as 3+ tricuspid regurgitation. She has done relatively well with medication titration. She presents today after an urgent phone call. She reported extremity swelling, facial swelling, leg swelling and weight gain. She presents today 178 pounds, when I saw her in October she was 168 pounds. She does endorse dietary indiscretions during the holidays. For the last several days she has been taking torsemide 40 mg daily, she did note an increase in urine output as well as some decrease in her leg swelling. She denies any orthopnea or PND. She denies any dizziness or syncope. She denies any palpitations. Her shortness of breath and dyspnea on exertion are relatively stable and mild. She does complain of some tightness of her face around her nose area in the morning but does not experience any lip, tongue, mouth swelling. She is not having any wheezing or airway compromise. She does report swelling of her left upper extremity but this also remains the shoulder that she had significant and complicated surgery on and has chronic swelling now. Review of Systems Allergies Allergen Reactions Paclitaxel Anaphylatic Reaction, went to [facility] ER on 02/04/09 Hydrocodone-Acetaminop hen Nausea And Vomiting Nitrofurantoin Other Wound Dressing Adhesive Itching Amoxicillin-Pot Clavulanate Diarrhea Other Other Cephalexin Rash Current Outpatient Medications Medication Instructions allopurinol (ZYLOPRIM) 300 mg, Oral, Daily budesonide EC (ENTOCORT EC) 3 mg, Oral, Daily calcium 500 mg, Oral, [...] mg, Oral, Daily, for stomach sacubitril-valsartan (Entresto) 97-103 MG tablet 1 tablet, Oral, 2 times daily simvastatin (Zocor) 40 MG tablet TAKE 1 TABLET BY MOUTH ONCE DAILY IN THE EVENING FOR CHOLESTEROL spironolactone (ALDACTONE) 50 mg, Oral, Daily torsemide (DEMADEX) 40 mg, Oral, Every morning triamcinolone (Kenalog) 0.1 % cream APPLY CREAM TOPICALLY TWICE DAILY Past Medical History: Diagnosis Date CHF (congestive heart failure) (HCC) Hypertension Mixed hyperlipidemia 07/17/2006 LDL goal <70 Prediabetes 10/04/2022 Sleep apnea (more content not included)... [facility] Progress Note [employer] message sent re: labs [facility] 36on 12-18-2023 36 She is coming in on Wed as long as she has a ride [facility] 36 If she is not responding to increased diuretic then yes, I should probably see her. [facility] 36 Phone call to the patient, said that weight is steadily creeping up- about a 1/2 # to a # per day. Noticed she is swollen all over, mostly in extremities but her face feels tight . Pt said it is slightly better today. Denies trouble breathing or swallowing. Denies any other HF symptoms. Pt was due for BMP at the end of oct, said she had it done at [facility]- we did not get results- mervat to request Pt take torse 20mg every day. At Oct 2023 visit, pt was advised to take 40mg bid, then taper down to 20mg every day, I asked if this helped- pt said she only took 20mg every day. Pt advised to take extra 20mg now (for a total of 40mg today), plus 40mg tomorrow/Monday and - will review with GERI [facility] 36 PT called & c/o albertina a all over. She states that she is up 12# this month [facility] CT SHOULDER WO CONTRAST LTon 11-17-2023 CT SHOULDER WO CONTRAST LT * * *Final Report* * * DATE OF EXAM: Nov 17 2023 1:07PM [facility] [id number] - CT SHOULDER WO CONTRAST LT / PROCEDURE REASON: donjoy protocol fx * * * * Physician Interpretation * * * * CT LEFT SHOULDER, INNAJOY PROTOCOL Indication: DonJoy protocol shoulder. Surgical planning. TECHNIQUE: CT imaging was performed without administration of contrast: JENNY PROTOCOL: Axial images of the shoulder with coronal and sagittal reconstructions. Dose-Length Product (DLP): 657.86 mGy*cm. CT Dose Reduction Employed: Automated exposure control (AEC) and iterative recon Comparison: Left shoulder radiographs 09/06/2023. CT left shoulder 04/08/2023. RESULT: There is a stemmed antibiotic spacer implant within the proximal humerus. There is a small amount of heterotopic ossification about the proximal humeral resection margin. There are defects from prior screw fixation hardware noted to the glenoid. There is a remote, ununited fracture extending along the base of the scapular spine with up to 4 mm distraction normal alignment at the acromioclavicular joint with severe degenerative changes present. ICD generator noted anteriorly in the left chest with associated artifact. There is stable juxtapleural opacity at the left apex probably due to scarring. Complete atrophy and fatty replacement of the supraspinatus and infraspinatus muscles again shown. There is mild to moderate atrophy and fatty replacement of the subscapularis muscle. IMPRESSION: Left shoulder CT for surgical planning. Stemmed antibiotic spacer within the proximal humerus. Remote ununited scapular fracture as detailed above which is new from the prior CT. Welfare Administrator: KRISS Transcribe Date/Time: Nov 17 2023 4:43P Dictated by : CLAUDIA DOMINGUEZ MD This examination was interpreted and the report reviewed and electronically signed by: CLAUDIA DOMINGUEZ MD on Nov 17 2023 5:01PM EST [id number] Normal [facility] CT Shoulder - left WO contra ston 11-17-2023 IMPRESSION: Left shoulder CT for surgical planning. Stemmed antibiotic spacer within the proximal humerus. Remote ununited scapular fracture as detailed above which is new from the prior CT. Welfare Administrator: KRISS Transcribe Date/Time: Nov 17 2023 4:43P Dictated by : CLAUDIA DOMINGUEZ MD This examination was interpreted and the report reviewed and electronically signed by: CLAUDIA DOMINGUEZ MD on Nov 17 2023 5:01PM EST [facility] * * *Final Report* * * DATE OF EXAM: Nov 17 2023 1:07PM [facility] [place] [id number] - CT SHOULDER WO CONTRAST LT / PROCEDURE REASON: donjoy protocol fx * * * * Physician Interpretation * * * * CT LEFT SHOULDER, DONJOY PROTOCOL Indication: DonJoy protocol shoulder. Surgical planning. TECHNIQUE: CT imaging was performed without administration of contrast: JENNY PROTOCOL: Axial images of the shoulder with coronal and sagittal reconstructions. Dose-Length Product (DLP): 657.86 mGy*cm. CT Dose Reduction Employed: Automated exposure control (AEC) and iterative recon Comparison: Left shoulder radiographs 09/06/2023. CT left shoulder 04/08/2023. RESULT: There is a stemmed antibiotic spacer implant within the proximal humerus. There is a small amount of heterotopic ossification about the proximal humeral resection margin. There are defects from prior screw fixation hardware noted to the glenoid. There is a remote, ununited fracture extending along the base of the scapular spine with up to 4 mm distraction normal alignment at the acromioclavicular joint with severe degenerative changes present. ICD generator noted anteriorly in the left chest with associated artifact. There is stable juxtapleural opacity at the left apex probably due to scarring. Complete atrophy and fatty replacement of the supraspinatus and infraspinatus muscles again shown. There is mild to moderate atrophy and fatty replacement of the subscapularis muscle. [facility] Provider, Mariano Alvarez - 11/17/2023 * * *Final Report* * * DATE OF EXAM: Nov 17 2023 1:07PM [facility] [place] [address] - CT SHOULDER WO CONTRAST LT / PROCEDURE REASON: [facility] protocol fx * * * * Physician Interpretation * * * * CT LEFT SHOULDER, DONEAST SPENCER PROTOCOL Indication: [place] protocol shoulder. Surgical planning. TECHNIQUE: CT imaging was performed without administration of contrast: JENNY PROTOCOL: Axial images of the shoulder with coronal and sagittal reconstructions. Dose-Length Product (DLP): 657.86 mGy*cm. CT Dose Reduction Employed: Automated exposure control (AEC) and iterative recon Comparison: Left shoulder radiographs 09/06/2023. CT left shoulder 04/08/2023. RESULT: There is a stemmed antibiotic spacer implant within the proximal humerus. There is a small amount of heterotopic ossification about the proximal humeral resection margin. There are defects from prior screw fixation hardware noted to the glenoid. There is a remote, ununited fracture extending along the base of the scapular spine with up to 4 mm distraction normal alignment at the acromioclavicular joint with severe degenerative changes present. ICD generator noted anteriorly in the left chest with associated artifact. There is stable juxtapleural opacity at the left apex probably due to scarring. Complete atrophy and fatty replacement of the supraspinatus and infraspinatus muscles again shown. There is mild to moderate atrophy and fatty replacement of the subscapularis muscle. IMPRESSION IMPRESSION: Left shoulder CT for surgical planning. Stemmed antibiotic spacer within the proximal humerus. Remote ununited scapular fracture as detailed above which is new from the prior CT. Welfare Administrator: KRISS Transcribe Date/Time: Nov 17 2023 4:43P Dictated by : CLAUDIA DOMINGUEZ MD This examination was interpreted and the report reviewed and electronically signed by: CLAUDIA DOMINGUEZ MD on Nov 17 2023 5:01PM EST [facility] Radiology Study observation (narrative) [facility] CT Shoulder - left WO contra stOrdered By: [facility] Provider on 11-17-2023 [facility] Office Visiton 11-07-2023 Follow-up visit [id number] Desirae Archuleta 1940 F Date Provider Department Center 11/07/2023 [id number] CAMPA [facility] [address] Family History Problem Relation Age of Onset Cancer Mother Heart failure Mother Aneurysm Mother Heart disease Brother Heart disease Brother Family Status - Relation Status Age at Mother Father Brother Brother Level of Service:42875 NC OFFICE/OUTPATIENT ESTABLISHED MOD MDM 30-39 MIN Reason for Visit and Comments: 3 Month Follow Up [[id number]] - Per Sreedhar DALEY-after echo,completed at [place] Congestive Heart Failure [127] Hypertension [295325] Hyperlipidemia [182] - LDL goal <70 Normal [facility] PATINSon 11-07-2023 PATINS Increase Entresto to 97/103 mg twice a day Labs in 1 week See Sreedhar in 6 months Normal [facility] Progress Noteon 11-07-2023 Progress Note Well-controlled, continue heart failure GDMT as noted Normal [facility] Progress Note NYHA Class 1-2 ACC/AHA Stage C HFrEF, with LVEF 35% (3+ MR, OSH echo in [facility] 08/2023) Etiology: NICM Previous Therapies Beta-blockade: Metoprolol 25 mg daily (Digoxin 125 mcg every other day) ACEi/ARB/ARNI: Entresto 49/51 mg BID Aldosterone Antagonist: Spironolactone 50 mg daily Hydralazine/ISDN: None SGLT2i: Farxiga 10 mg daily Diuretic: Torsemide 20 mg daily ICD: Yes CATERER HELPER: No Cardiac rehab: Declined --Symptoms are generally stable and well-controlled at this point in time. She does have some mild dyspnea on exertion with moderate to heavy activity but otherwise feels well. She denies any congestive symptoms such as orthopnea, PND, lower extremity edema. -- She has blood pressure room today for med titration, will increase her Entresto to max dose and follow-up response -- I described to her in length the consideration of MitraClip should she develop increased symptomatology. At this point in time she is 83 years old and just got done with significant left shoulder surgical and postsurgical complications. We will continue clinical follow-up. However if her exercise capacity decreases, dyspnea increases I do think it is reasonable to proceed with evaluation for MitraClip if she desires invasive procedure. -- No other medication changes, will recheck labs in about 1 week Normal [facility] Progress Note [facility] [address] [facility] [address] Dept: [phone] Dept Loc: [phone] Visit type: Established patient Reason for Visit: 3 Month Follow Up (Per Sreedhar DALEY-after echo,completed at [place]), Congestive Heart Failure, Hypertension, and Hyperlipidemia (LDL goal <70) Assessment and Plan 1. Chronic HFrEF (heart failure with reduced ejection fraction) ([facility]) Assessment & Plan: NYHA Class 1-2 ACC/AHA Stage C HFrEF, with LVEF 35% (3+ MR, OSH echo in PACS 08/2023) Etiology: NICM Previous Therapies Beta-blockade: Metoprolol 25 mg daily (Digoxin 125 mcg every other day) ACEi/ARB/ARNI: Entresto 49/51 mg BID Aldosterone Antagonist: Spironolactone 50 mg daily Hydralazine/ISDN: None SGLT2i: Farxiga 10 mg daily Diuretic: Torsemide 20 mg daily ICD: Yes CATERER HELPER: No Cardiac rehab: Declined --Symptoms are generally stable and well-controlled at this point in time. She does have some mild dyspnea on exertion with moderate to heavy activity but otherwise feels well. She denies any congestive symptoms such as orthopnea, PND, lower extremity edema. -- She has blood pressure room today for med titration, will increase her Entresto to max dose and follow-up response -- I described to her in length the consideration of MitraClip should she develop increased symptomatology. At this point in time she is 83 years old and just got done with significant left shoulder surgical and postsurgical complications. We will continue clinical follow-up. However if her exercise capacity decreases, dyspnea increases I do think it is reasonable to proceed with evaluation for MitraClip if she desires invasive procedure. -- No other medication changes, will recheck labs in about 1 week Orders: - digoxin (Lanoxin) 125 MCG tablet; Take 1 tablet (125 mcg) by mouth every other day., Starting Mon11/07/2023, Normal - Basic metabolic panel - sacubitril-valsartan (Entresto) 97-103 MG tablet; Take 1 tablet by mouth 2 times daily., Starting Mon11/07/2023, Until Mon11/01/2024, Normal 2. Nonrheumatic mitral valve regurgitation Assessment & Plan: She has functional mitral regurgitation, last echocardiogram in PACS in August 2023. 3+ on my evaluation. Continue up titration of Entresto, will follow-up symptoms in 6-month intervals. Discussed MitraClip today. 3. Essential hypertension, benign Assessment & Plan: Well-controlled, continue heart failure GDMT as noted Follow up in about 6 months (around 05/08/2024) for Sreedhar Hatch in 6 months . Subjective HPI Desirae Archuleta is a 82 y.o. female who presents for a follow up visit. I originally saw her for second opinion of her congestive heart failure. She reports a long history of heart failure with reduced ejection fraction, she believes over 10 years. She has a strong family history. I received records from [place] that I personally viewed. She had a coronary angiogram performed in 2021 which showed no obstructive coronary artery disease, she had an echocardiogram which reported left ventricular ejection fraction of 35% with at least 2+ eccentric mitral regurgitation as well as 3+ tricuspid regurgitation. She has been uptitrated on Entresto to mid range, she has been uptitrated to Farxiga 10 mg daily. At her first office visit we discontinued her carvedilol and started her on low-dose metoprolol 12.5 mg daily, started digoxin 125 mcg, now ever other day, and placed her on torsemide 40 mg twice daily, with taper down to 20 mg Torsemide based on lab work. Review of Systems Allergies Allergen Reactions Paclitaxel Anaphylatic Reaction, went to [facility] ER on 02/04/09 Hydrocodone-Acetaminop hen Nausea And Vomiting Nitrofurantoin Other Wound Dressing Adhesive Itching Amoxicillin-Pot Clavulanate Diarrhea Other Other Cephalexin Rash Current Outpatient Medications Medication Instructions allopurinol (ZYLOPRIM) 40 mg, Oral, Daily budesonide EC (Entocort EC) 3 MG 24 hr capsule Oral, 3 times daily calcium 500 mg, Oral, Daily cholecalciferol (Vitamin [...] mg, Oral, Daily, for stomach sacubitril-valsartan (Entresto) 97-103 MG tablet 1 tablet, Oral, 2 times daily simvastatin (Zocor) 40 MG tablet TAKE 1 TABLET BY MOUTH ONCE DAILY IN THE EVENING FOR CHOLESTEROL spironolactone (ALDACTONE) 50 mg, Oral, Daily torsemide (DEM (more content not included)... Normal [facility] Progress Noteon 09-28-2023 Progress Note 09/28/23920 [facility] Follow Up Call Does the patient have a PCP/Specialist follow up appointment? Yes (saw her ID yesterday) Are there any questions about medications? No Patient has all medications and verified no changes were made from previous medication reconciliation? Yes Assess how well the patient is able to take care of self since discharge from the hospital: spoke with patient who states that she is doing well. She states that she saw her doctor yesterday and the infection is almost gone. She states that she is feeling better. She has no concerns. [facility] program completed, will discharge. Educational and general instruction materials provided: Medication Adherence;Provider Follow-Up;When to return to ED;s/s Infection;When to call MD;When to call 911 Assess if patient has been to the ER, urgent care, or has been readmitted for any medical Not Applicable Does a referral need made to [facility] casework specialist/[facility] CM for additional follow up? Not Applicable [facility] Progress Noteon 09-21-2023 Progress Note 09/21/23 09 [facility] Follow Up Call Does the patient have a PCP/Specialist follow up appointment? Yes (saw surgeon on 09/19 and in a couple of weeks) Are there any questions about medications? No Patient has all medications and verified no changes were made from previous medication reconciliation? Yes Assess how well the patient is able to take care of self since discharge from the hospital: Spoke with patient who states that she is feeling pretty good. She states that she saw the surgeon a couple of days ago and they removed 24 celso. She states that her incision is healing nicely. She states that they want her to wear the brace for a couple of weeks. She states that she is using her bone stimulator. She is agreeable to a final follow up call next week. Educational and general instruction materials provided: Medication Adherence;Provider Follow-Up;When to return to ED;Falls Precautions;When to call MD;When to call 911;s/s Infection Assess if patient has been to the ER, urgent care, or has been readmitted for any medical Not Applicable Does a referral need made to [facility] casework specialist/[facility] CM for additional follow up? Not Applicable [facility] 36on 09-18-2023 36 Echocardiogram reviewed, done early August 25, 2023 in [place]. Spoke with patient about results. LVEF similar to prior, ~35%. On my review MR is ~3+ (which to me is similar to prior). There is 2+ AI. The amount of RV dilatation and TR has seemed to improve from prior. Overall, she feels clinically stable. 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 No new HF symptoms, some stable MADERA (~NYHA Class 2). All questions answered. Jeane Campa MD Department of Cardiovascular Disease, Division of Heart Failure [facility] [place] 3:52 PM 09/18/23 [facility] 36 Look at PACS [facility] CNDSon 09-12-2023 [facility] HNO ID: [id number] Author: Gilberto Watson DO Service: Orthopaedic Surgery Author Type: Physician Type: Discharge Summary Filed: 09/28/2023 7:31 AM Note Text: DISCHARGE SUMMARY PATIENT NAME: Desirae Archuleta ADMISSION DATE: 09/06/2023 DISCHARGE DATE: 09/12/2023 Attending Physician: Gilberto Watson DO Code Status: Prior Highest Readmission Risk Score: 20 The 30 day readmissions risk score is derived from an internally validated risk model which evaluates patient level characteristics, utilization history, medication orders and lab results up until the day of discharge. Patients with a score of 40 or above are considered highest risk for readmission. Specific patient level drivers will be listed at the bottom of the summary. 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 * Admitting Diagnosis: Left periprosthetic shoulder infection Discharge Diagnosis: Same as admitting Operations During Hospitalization: Irrigation and debridement left shoulder with removal left reverse shoulder arthroplasty placement antibiotic spacer Consultations: Physical Therapy Case Management Infectious Disease Internal Medicine Treatment Team: Attending Provider: Gilberto Watson DO Consulting: Rd Banks MD Hospital Course: Patient was admitted after removal of her left reverse shoulder arthroplasty and irrigation and debridement with placement of antibiotic spacer. Patient grew strep species on her cultures. Dr. Banks was consulted and placed a PICC line as well as recommending long-term IV antibiotics. The patient had pain well controlled and tolerated during her stay. Patient was discharged in stable condition with follow-up with me in the office. Plan for conversion to further arthroplasty versus maintaining spacer over time depending on her progression of her infection. Relevant labs included: No new labs Patient Condition @ Discharge: Stable Discharge Disposition: Home with Relative Printed discharge instructions provided to the patient. Activity: Non Weight Bearing left upper extremity Diet: Resume pre-hospital diet Wound/Surgical Site Care: None ALLERGIES Allergen Reactions Augmentin [Amoxicil* Diarrhea Tolerated cefazolin and ceftriaxone at [facility] in 08/2023 Keflex [Cephalexin] Rash Hand and buttocks Tolerated cefazolin and ceftriaxone at [facility] in 08/2023 [place] [Hydrocodone-* Vomiting Taxol [Paclitaxel] Anaphylatic Reaction, went to [facility] ER on 02/04/09 Adhesive Tape (Malaika* Other: See Comments Itching with prolonged use Discharge Medications: Medication List START taking these medications cefTRIAXone 2 g in D5W 100 mL Vial-Bag Commonly known as: ROCEPHIN Inject 100 mL intravenously every 24 hours. Stop date 10/18/23 Weekly bmp, cbc, and esr. Fax to [phone] CHANGE how you take these medications allopurinol 300 mg tablet Commonly known as: ZYLOPRIM TAKE ONE TABLET BY MOUTH ONCE DAILY FOR GOUT What changed: how much to take how to take this when to take this levothyroxine 88 mcg tablet Commonly known as: SYNTHROID TAKE ONE TABLET BY MOUTH ONCE DAILY ON EMPTY STOMACH every Mon, Tues, Thurs, Fri, Sat Two tablets every Mon and Wed What changed: how much to take how to take this when to take this additional instructions omeprazole 40 mg capsule Commonly known as: PriLOSEC Take 1 capsule by mouth once daily. What changed: when to take this CONTINUE taking these medications aspirin, enteric coated 325 mg EC tablet Commonly known as: ASPIRIN, ENTERIC COATED Take 1 tablet by mouth two times a day for 14 days. CALCIUM 600 WITH VITAMIN D3 600 mg-5 mcg (200 unit) Tab Generic drug: calcium carbonate 600 mg-cholecalciferol 200 units dapagliflozin propanediol 10 mg tablet Commonly known as: FARXIGA digoxin 125 mcg (0.125 mg) tablet Commonly known as: LANOXIN ENTRESTO 49-51 mg tablet Generic drug: sacubitril-valsartan leflunomide 10 mg tablet Commonly known as: ARAVA MEDICATION, NON-DATABASE metoprolol tartrate (short acting) 25 mg tablet Commonly known as: LOPRESSOR ONE-A-DAY WOMENS FORMULA 27-0.4 mg Tab Generic drug: Xdnrhckgvkwad-Ad-Copq- Minerals simvastatin 40 mg tablet Commonly known as: ZOCOR Take 1 tablet by mouth daily at bedtime. spironolactone 25 mg tablet Commonly known as: ALDACTONE torsemide 20 mg tablet Commonly known as: DEMADEX ASK your doctor about these medications oxyCODONE-acetaminophe n 5-325 mg tablet Commonly known as: PERCOCET Take 1 tablet by mouth every 6 hours as needed for up to 7 days. Ask about: Should I take this medication? Where to Get Your Medications These medications were sent to [facility] [address] [place] [id number] [address] [facility] [phone] [place] [address] (more content not included)... Normal [facility] CBC W Auto Differential pane l (Bld)on 09-11-2023 Basophils (Bld) [#/Vol] 0.03 10*3/uL Normal <0.11 [facility] Comment on above: Order Comment: Speci men Type: BLOOD SPECIMENOrdering Facility: [facility] Address: [place] [address] Performed By: #### 5 7021-8 ####[facility]ATORYCLIA [id number] [place] [id number] [place] Basophils/100 WBC (Bld) 0.5 % [facility] Comment on above: Order Comment: Speci men Type: BLOOD SPECIMENOrdering Facility: [facility] Address: [address] [place] [address] Performed By: #### 5 7021-8 ####[facility]ATORYCLIA [id number] [address] [place] Differential cell count method Nom (Bld) Auto Normal [facility] Comment on above: Order Comment: Speci men Type: BLOOD SPECIMENOrdering Facility: [facility] Address: [address] [place] [address] Performed By: #### 5 7021-8 ####[facility]ATORYCLIA [id number] [place] [address] [place] Eosinophils (Bld) [#/Vol] 0.27 10*3/uL Normal <0.46 [facility] Comment on above: Order Comment: Speci men Type: BLOOD SPECIMENOrdering Facility: [facility] Address: [address] [place] [address] Performed By: #### 5 7021-8 ####[facility]ATORYCLIA [id number] [address] [place] Eosinophils/100 WBC (Bld) 4.4 % Normal [facility] Comment on above: Order Comment: Speci men Type: BLOOD SPECIMENOrdering Facility: [facility] Address: [address] [place] [address] Performed By: #### 5 7021-8 ####[facility]ATORYCLIA [id number] [address] [place] Erythrocyte distribution width (RBC) [Ratio] 14.3 % Normal 11.5-15.0 [facility] Comment on above: Order Comment: Speci men Type: BLOOD SPECIMENOrdering Facility: [facility] Address: [address] [place] [address] Performed By: #### 5 7021-8 ####[facility]ATORYCLIA [id number] [place] [address] [place] Hematocrit (Bld) [Volume fraction] 26.2 % Low 36.0-46.0 [facility] Comment on above: Order Comment: Speci men Type: BLOOD SPECIMENOrdering Facility: [facility] Address: [address] [place] [address] Performed By: #### 5 7021-8 ####[facility]ATORYCLIA [id number] [place] [address] [place] Hemoglobin (Bld) [Mass/Vol] 8.5 g/dL Low 11.5-15.5 [facility] Comment on above: Order Comment: Speci men Type: BLOOD SPECIMENOrdering Facility: [facility] Address: [address] [place] [address] Performed By: #### 5 7021-8 ####[facility]ATORYCLIA [id number] [place] [address] [place] Immature granulocytes (Bld) [#/Vol] 0.03 10*3/uL Normal <0.10 [facility] Comment on above: Order Comment: Speci men Type: BLOOD SPECIMENOrdering Facility: [facility] Address: [address] [place] [address] Performed By: #### 5 7021-8 ####[facility]ATORYCLIA [id number] [place] [address] [place] Immature granulocytes/100 WBC (Bld) 0.5 % Normal [facility] Comment on above: Order Comment: Speci men Type: BLOOD SPECIMENOrdering Facility: [facility] Address: [address] [place] [address] Performed By: #### 5 7021-8 ####[facility]ATORYCLIA [id number] [place] [address] [place] Lymphocytes (Bld) [#/Vol] 1.40 10*3/uL Normal 1.00-4.00 [facility] Comment on above: Order Comment: Speci men Type: BLOOD SPECIMENOrdering Facility: [facility] Address: [address] [place] [address] Performed By: #### 5 7021-8 ####[facility]ORYCLIA [id number] [address] [place] Lymphocytes/100 WBC (Bld) 23.0 % Normal [facility] Comment on above: Order Comment: Speci men Type: BLOOD SPECIMENOrdering Facility: [facility] Address: [address] [place] [address] Performed By: #### 5 7021-8 ####[facility]ATORYCLIA [id number] [place] [address] [place] MCH (RBC) [Entitic mass] 31.0 pg Normal 26.0-34.0 [facility] Comment on above: Order Comment: Speci men Type: BLOOD SPECIMENOrdering Facility: [facility] Address: [address] [place] [address] Performed By: #### 5 7021-8 ####[facility]ATORYCLIA [id number] [address] [place] MCHC (RBC) [Mass/Vol] 32.4 g/dL Normal 30.5-36.0 [facility] Comment on above: Order Comment: Speci men Type: BLOOD SPECIMENOrdering Facility: [facility] Address: [address] [place] [address] Performed By: #### 5 7021-8 ####[facility]ORYCLIA [id number] [address] [place] MCV (RBC) [Entitic vol] 95.6 fL Normal 80.0-100.0 [facility] Comment on above: Order Comment: Speci men Type: BLOOD SPECIMENOrdering Facility: [facility] Address: [address] [place] [address] Performed By: #### 5 7021-8 ####[facility]ORYCLIA [id number] [address] [place] Monocytes (Bld) [#/Vol] 0.38 10*3/uL Normal <0.87 [facility] Comment on above: Order Comment: Speci men Type: BLOOD SPECIMENOrdering Facility: [facility] Address: [address] [place] [address] Performed By: #### 5 7021-8 ####[facility]ATORYCLIA [id number] [place] [id number] [place] Monocytes/100 WBC (Bld) 6.2 % Normal [facility] Comment on above: Order Comment: Speci men Type: BLOOD SPECIMENOrdering Facility: [facility] Address: [address] [place] [address] Performed By: #### 5 7021-8 ####[facility]ATORYCLIA [id number] [place] [address] [place] Neutrophils (Bld) [#/Vol] 3.98 10*3/uL Normal 1.45-7.50 [facility] Comment on above: Order Comment: Speci men Type: BLOOD SPECIMENOrdering Facility: [facility] Address: [address] [place] [address] Performed By: #### 5 7021-8 ####[facility]ATORYCLIA [id number] [place] [address] [place] Neutrophils/100 WBC (Bld) 65.4 % Normal [facility] Comment on above: Order Comment: Speci men Type: BLOOD SPECIMENOrdering Facility: [facility] Address: [address] [place] [address] Performed By: #### 5 7021-8 ####[facility]ATORYCLIA [id number] [place] [address] [place] Nucleated RBC (Bld) [#/Vol] 10*3/uL Normal <0.01 [facility] Comment on above: Order Comment: Speci men Type: BLOOD SPECIMENOrdering Facility: [facility] Address: [address] [place] [address] Performed By: #### 5 7021-8 ####[facility]ATORYCLIA [id number] [place] [address] [place] Nucleated RBC/100 WBC (Bld) [Ratio] 0.0 /100 WBC Normal [facility] Comment on above: Order Comment: Speci men Type: BLOOD SPECIMENOrdering Facility: [facility] Address: [address] [place] [address] Performed By: #### 5 7021-8 ####[facility]ATORYCLIA [id number] [place] [id number] [place] Platelet mean volume (Bld) [Entitic vol] 8.5 fL Low 9.0-12.7 [facility] Comment on above: Order Comment: Speci men Type: BLOOD SPECIMENOrdering Facility: [facility] Address: [address] [place] [address] Performed By: #### 5 7021-8 ####[facility]ATORYCLIA [id number] [place] [id number] [facility] [place] Platelets (Bld) [#/Vol] 192 10*3/uL Normal 150-400 [facility] Comment on above: Order Comment: Speci men Type: BLOOD SPECIMENOrdering Facility: [facility] Address: [address] [place] [address] Performed By: #### 5 7021-8 ####[facility]ATORYCLIA [id number] [place] [address] [place] RBC (Bld) [#/Vol] 2.74 10*6/uL Low 3.90-5.20 [facility] Comment on above: Order Comment: Speci men Type: BLOOD SPECIMENOrdering Facility: [facility] Address: [address] [place] [address] Performed By: #### 5 7021-8 ####[facility]ORYCLIA [id number] [place] [address] [place] WBC (Bld) [#/Vol] 6.09 10*3/uL Normal 3.70-11.00 [facility] Comment on above: Order Comment: Speci men Type: BLOOD SPECIMENOrdering Facility: [facility] Address: [address] [place] [address] Performed By: #### 5 7021-8 ####[facility]ATORYCLIA [id number] [place] [id number] [facility] [place] CONSULT PROGon 09-11-2023 CONSULT PROG HNO ID: [id number] Author: Briseyda Hamilton RPh Service: Pharmacy Author Type: Pharmacist Type: Consult Progress Note Filed: 09/11/2023 9:25 AM Note Text: PHARMACY VANCOMYCIN DOSING NOTE Patient Name: Desirae Archuleta Admission Date: 09/06/2023 Date of Consult: 09/11/2023 Time of Consult: 9:25 AM RECOMMENDATIONS/PLAN: Pharmacy consulted for vancomycin dosing for Desirae Archuleta, a 83 year old female. 1. Vancomycin therapy has been discontinued. Vancomycin level(s) have been discontinued: Yes. Pharmacy vancomycin dosing service will sign off. Thank you for allowing us to participate in this patient's care. Please contact pharmacy if there are questions. Briseyda Hamilton RPh Normal [facility] Comprehensive metabolic 2000 panelon 09-11-2023 Albumin [Mass/Vol] 2.6 g/dL Low 3.2-5.0 [facility] Comment on above: Order Comment: Tk wilkinson Type: BLOOD SPECIMENOrdering Facility: [facility] Address: [address] [place] [address] Performed By: #### 2 4323-8 ####[facility]ATORYCLIA [id number] [address] [place] ALP [Catalytic activity/Vol] 85 U/L Normal 45-117 [facility] Comment on above: Order Comment: Tk wilkinson Type: BLOOD SPECIMENOrdering Facility: [facility] Address: [address] [place] [address] Performed By: #### 2 4323-8 ####[facility]ATORYCLIA [id number] [address] [place] ALT [Catalytic activity/Vol] 15 U/L Normal 13-61 [facility] Comment on above: Order Comment: Tk wilkinson Type: BLOOD SPECIMENOrdering Facility: [facility] Address: [address] [place] [address] Result Comment: Resu lts may be falsely depressed after the administration of Sulfasalazine and/or Sulfapyridine. Performed By: #### 2 4323-8 ####[facility]ATORYCLIA [id number] [place] [id number] [place] Anion gap [Moles/Vol] 9 mmol/L Normal 5-16 [facility] Comment on above: Order Comment: Speci men Type: BLOOD SPECIMENOrdering Facility: [facility] Address: [address] [place] [address] Performed By: #### 2 4323-8 ####[facility]ORYCLIA [id number] [place] [address] [place] AST [Catalytic activity/Vol] 18 U/L Normal 8-34 [facility] Comment on above: Order Comment: Speci men Type: BLOOD SPECIMENOrdering Facility: [facility] Address: [address] [place] [address] Result Comment: Resu lts may be falsely depressed after the administration of Sulfasalazine and/or Sulfapyridine. Performed By: #### 2 4323-8 ####[facility]ATORYCLIA [id number] [place] [address] [place] Bilirubin [Mass/Vol] 0.3 mg/dL Normal 0.2-1.0 [facility] Comment on above: Order Comment: Speci men Type: BLOOD SPECIMENOrdering Facility: [facility] Address: [address] [place] [address] Performed By: #### 2 4323-8 ####[facility]ATORYCLIA [id number] [place] [address] [place] Calcium [Mass/Vol] 8.3 mg/dL Low 8.5-10.5 [facility] Comment on above: Order Comment: Speci men Type: BLOOD SPECIMENOrdering Facility: [facility] Address: [address] [place] [address] Performed By: #### 2 4323-8 ####[facility]ORYCLIA [id number] [place] [id number] [place] Chloride [Moles/Vol] 106 mmol/L Normal 98-107 [facility] Comment on above: Order Comment: Speci men Type: BLOOD SPECIMENOrdering Facility: [facility] Address: [address] [place] [address] Performed By: #### 2 4323-8 ####[facility]ORYCLIA [id number] [place] [id number] [place] CO2 [Moles/Vol] 26 mmol/L Normal 21-32 [facility] Comment on above: Order Comment: Speci men Type: BLOOD SPECIMENOrdering Facility: [facility] Address: [address] [place] [address] Performed By: #### 2 4323-8 ####[facility]ORYCLIA [id number] [place] [address] [place] Creatinine [Mass/Vol] 0.99 mg/dL High 0.51-0.95 [facility] Comment on above: Order Comment: Speci men Type: BLOOD SPECIMENOrdering Facility: [facility] Address: [address] [place] [address] Result Comment: Mabel ents receiving either N-Acetylcysteine (NAC) or Metamizole prior to venipuncture, may have falsely depressed results. Performed By: #### 2 4323-8 ####[facility]ATORYCLIA [id number] [address] Creatinine and Glomerular filtration rate.predicted panel (S/P/Bld) 57 mL/min/1.73m??? Low >=60 [facility] Comment on above: Order Comment: Tk wilkinson Type: BLOOD SPECIMENOrdering Facility: [facility] Address: [address] [place] [address] Result Comment: Loyda mated Glomerular Filtration Rate (eGFR) is calculated using the 2020 CKD-EPI creatinine equation. This equation utilizes serum creatinine, sex, and age as parameters. The creatinine assay has traceable calibration to isotope dilution-mass spectrometry. Refer to KDIGO guidelines for clinical interpretation. In patients with unstable renal function, e.g. those with acute kidney injury, the eGFR may not accurately reflect actual GFR. Performed By: #### 2 4323-8 ####[facility]ATORYCLIA [id number] [place] [address] [place] Glucose [Mass/Vol] 101 mg/dL High 70-100 [facility] Comment on above: Order Comment: Tk wilkinson Type: BLOOD SPECIMENOrdering Facility: [facility] Address: [address] [place] [address] Result Comment: The [place] [employer] (ADA) provides guidance for cutoff values for fasting glucose and random glucose. The ADA defines fasting as no caloric intake for at least 8 hours. Fasting plasma glucose results between 100 to 125 mg/dL indicate increased risk for diabetes (prediabetes). Fasting plasma glucose results greater than or equal to 126 mg/dL meet the criteria for diagnosis of diabetes. In the absence of unequivocal hyperglycemia, results should be confirmed by repeat testing. In a patient with classic symptoms of hyperglycemia or hyperglycemic crisis, random plasma glucose results greater than or equal to 200 mg/dL meet the criteria for diagnosis of diabetes. Reference: Standards of Medical Care in Diabetes 2016, [place] [employer]. Diabetes Care. 2016.39(Suppl 1). Results may be falsely elevated after the administration of Sulfapyridine. Results may be falsely depressed after the administration of Sulfasalazine. Performed By: #### 2 4323-8 ####[facility]ATORYCLIA [id number] [place] [address] [place] Potassium [Moles/Vol] 4.4 mmol/L Normal 3.5-5.1 [facility] Comment on above: Order Comment: Tk wilkinson Type: BLOOD SPECIMENOrdering Facility: [facility] Address: [address] [place] [address] Performed By: #### 2 4323-8 ####[facility]ATORYCLIA [id number] [place] [address] [place] Protein [Mass/Vol] 5.3 g/dL Low 6.0-8.5 [facility] Comment on above: Order Comment: Tk wilkinson Type: BLOOD SPECIMENOrdering Facility: [facility] Address: [address] [place] [address] Performed By: #### 2 4323-8 ####[facility]ORYCLIA [id number] [place] [address] [place] Sodium [Moles/Vol] 141 mmol/L Normal 136-145 [facility] Comment on above: Order Comment: Speci men Type: BLOOD SPECIMENOrdering Facility: [facility] Address: [address] [place] [address] Performed By: #### 2 4323-8 ####[facility]ATORYCLIA [id number] [place] [address] [place] Urea nitrogen [Mass/Vol] 29 mg/dL High 06-14 [facility] Comment on above: Order Comment: Speci men Type: BLOOD SPECIMENOrdering Facility: [facility] Address: [address] [place] [address] Performed By: #### 2 4323-8 ####[facility]ATORYCLIA [id number] [place] [address] [place] Gastrointestinal pathogens p mariah AGUILA+probe (Stl)on 09-11-2023 ADENOVIRUS F 40/41 Not detected Normal Not Detected [facility] Comment on above: Order Comment: Speci men Type: STOOL SPECIMENOrdering Facility: [facility] Address: [address] [place] [address] Performed By: #### 7 9381-0 ####[facility]ATORYCLIA [id number] [place] [address] [place] ASTROVIRUS Not detected Normal Not Detected [facility] Comment on above: Order Comment: Speci men Type: STOOL SPECIMENOrdering Facility: [facility] Address: [address] [place] [address] Performed By: #### 7 9381-0 ####[facility]ATORYCLIA [id number] [place] [address] [place] C. cayetanensis DNA AGUILA+probe Ql (Unsp spec) Not detected Normal Not Detected [facility] Comment on above: Order Comment: Speci men Type: STOOL SPECIMENOrdering Facility: [facility] Address: [address] [place] [address] Performed By: #### 7 9381-0 ####[facility]ATORYCLIA [id number] [place] [address] [place] Campylobacter sp DNA.diarrheagenic AGUILA+probe Ql (Stl) Not detected Normal Not Detected [facility] Comment on above: Order Comment: Speci men Type: STOOL SPECIMENOrdering Facility: [facility] Address: [address] [place] [address] Performed By: #### 7 9381-0 ####[facility]ATORYCLIA [id number] [place] [address] [place] Cryptosporidium sp DNA AGUILA+probe Ql (Unsp spec) Not detected Normal Not detected [facility] Comment on above: Order Comment: Speci men Type: STOOL SPECIMENOrdering Facility: [facility] Address: [address] [place] [address] Performed By: #### 7 9381-0 ####[facility]ATORYCLIA [id number] [address] [place] E. COLI (EAEC) Not detected Normal Not Detected [facility] Comment on above: Order Comment: Speci men Type: STOOL SPECIMENOrdering Facility: [facility] Address: [address] [place] [address] Performed By: #### 7 9381-0 ####[facility]ATORYCLIA [id number] [address] [place] E. COLI (EPEC) Detected Abnormal Not Detected [facility] Comment on above: Order Comment: Speci men Type: STOOL SPECIMENOrdering Facility: [facility] Address: [address] [place] [address] Performed By: #### 7 9381-0 ####[facility]ATORYCLIA [id number] [address] [place] E. COLI (ETEC) Not detected Normal Not Detected [facility] Comment on above: Order Comment: Speci men Type: STOOL SPECIMENOrdering Facility: [facility] Address: [address] [place] [address] Performed By: #### 7 9381-0 ####[facility]ORYCLIA [id number] [address] [place] E. COLI (STEC) Not detected Normal Not Detected [facility] Comment on above: Order Comment: Speci men Type: STOOL SPECIMENOrdering Facility: [facility] Address: [address] [place] [address] Performed By: #### 7 9381-0 ####[facility]ATORYCLIA [id number] [place] [address] [place] E. coli O157:H7 DNA AGUILA+probe Ql (Unsp spec) Not Applicable Normal Not Detected [facility] Comment on above: Order Comment: Speci men Type: STOOL SPECIMENOrdering Facility: [facility] Address: [address] [place] [address] Performed By: #### 7 9381-0 ####[facility]ATORYCLIA [id number] [place] [address] [facility] [place] E. histolytica DNA AGUILA+probe Ql (Unsp spec) Not detected Normal Not Detected [facility] Comment on above: Order Comment: Speci men Type: STOOL SPECIMENOrdering Facility: [facility] Address: [address] [place] [address] Performed By: #### 7 9381-0 ####[facility]ORATORYCLIA [id number] [place] [address] [place] G. lamblia DNA AGUILA+probe Ql (Unsp spec) Not detected Normal Not Detected [facility] Comment on above: Order Comment: Speci men Type: STOOL SPECIMENOrdering Facility: [facility] Address: [address] [place] [address] Performed By: #### 7 9381-0 ####[facility]ORATORYCLIA [id number] [address] [place] NOR[place]IRUS GI/GII Not detected Normal Not Detected [facility] Comment on above: Order Comment: Speci men Type: STOOL SPECIMENOrdering Facility: [facility] Address: [address] [place] [address] Performed By: #### 7 9381-0 ####[facility]ORATORYCLIA [id number] [address] OF [place] PLESIOMONAS SHIGELLOIDES Not detected Normal Not Detected [facility] Comment on above: Order Comment: Speci men Type: STOOL SPECIMENOrdering Facility: [facility] Address: [address] [place] [address] Performed By: #### 7 9381-0 ####[facility]ATORYCLIA [id number] [place] [address] [place] ROTOVIRUS A Not detected Normal Not Detected [facility] Comment on above: Order Comment: Speci men Type: STOOL SPECIMENOrdering Facility: [facility] Address: [address] [place] [address] Performed By: #### 7 9381-0 ####[facility]ATORYCLIA [id number] [place] [address] [place] Salmonella sp DNA AGUILA+probe Ql (Unsp spec) Not detected Normal Not Detected [facility] Comment on above: Order Comment: Speci men Type: STOOL SPECIMENOrdering Facility: [facility] Address: [address] [place] [address] Performed By: #### 7 9381-0 ####[facility]ITALIA [id number] [place] [address] [place] [facility] [place] SAPOVIRUS I,II,IV,V Not detected Normal Not Detected [facility] Comment on above: Order Comment: Speci men Type: STOOL SPECIMENOrdering Facility: [facility] Address: [address] [place] [address] Performed By: #### 7 9381-0 ####[facility]ATORYCLIA [id number] [place] [address] [place] Shigella species+EIEC invasion plasmid antigen H ipaH gene AGUILA+probe Ql (Stl) Not detected Normal Not Detected [facility] Comment on above: Order Comment: Speci men Type: STOOL SPECIMENOrdering Facility: [facility] Address: [address] [place] [address] Performed By: #### 7 9381-0 ####[facility]ATORYCLIA [id number] [address] [place] V. cholerae DNA AGUILA+probe Ql (Unsp spec) Not detected Normal Not Detected [facility] Comment on above: Order Comment: Speci men Type: STOOL SPECIMENOrdering Facility: [facility] Address: [address] [place] [address] Performed By: #### 7 9381-0 ####[facility]ATORYCLIA [id number] [place] [address] [place] Vibrio sp DNA AGUILA+probe Nom (Unsp spec) Not detected Normal Not Detected [facility] Comment on above: Order Comment: Speci men Type: STOOL SPECIMENOrdering Facility: [facility] Address: [address] [place] [address] Performed By: #### 7 9381-0 ####[facility]ATORYCLIA [id number] [place] [address] [place] [facility] [place] Yersinia sp DNA AGUILA+probe Nom (Unsp spec) Not detected Normal Not Detected [facility] Comment on above: Order Comment: Speci men Type: STOOL SPECIMENOrdering Facility: [facility] Address: [address] [place] [address] Performed By: #### 7 9381-0 ####[facility]ATORYCLIA [id number] [place] [address] [place] Basic metabolic 2000 panelon 09-10-2023 Anion gap [Moles/Vol] 6 mmol/L Normal 5-16 [facility] Comment on above: Order Comment: Speci men Type: BLOOD SPECIMENOrdering Facility: [facility] Address: [address] [place] [address] Performed By: #### 1 9123-9, 83881-9 ####[facility]ATORYCLIA [id number] [place] [address] [place] Calcium [Mass/Vol] 8.0 mg/dL Low 8.5-10.5 [facility] Comment on above: Order Comment: Speci men Type: BLOOD SPECIMENOrdering Facility: [facility] Address: [address] [place] [address] Performed By: #### 1 9123-9, 32814-9 ####[facility]ORATORYCLIA [id number] [place] [id number] [place] Chloride [Moles/Vol] 107 mmol/L Normal 98-107 [facility] Comment on above: Order Comment: Speci men Type: BLOOD SPECIMENOrdering Facility: [facility] Address: [address] [place] [address] Performed By: #### 1 9123-9, 85736-5 ####[facility]ATORYCLIA [id number] [place] [id number] [place] CO2 [Moles/Vol] 27 mmol/L Normal 21-32 [facility] Comment on above: Order Comment: Speci men Type: BLOOD SPECIMENOrdering Facility: [facility] Address: [address] [place] [address] Performed By: #### 1 9123-9, 61600-8 ####[facility]ATORYCLIA [id number] [place] [address] [place] Creatinine [Mass/Vol] 0.97 mg/dL High 0.51-0.95 [facility] Comment on above: Order Comment: Speci men Type: BLOOD SPECIMENOrdering Facility: [facility] Address: [address] [place] [address] Result Comment: Mabel ents receiving either N-Acetylcysteine (NAC) or Metamizole prior to venipuncture, may have falsely depressed results. Performed By: #### 1 9123-9, 72541-1 ####[facility]ATORYCLIA [id number] [place] [address] [place] Creatinine and Glomerular filtration rate.predicted panel (S/P/Bld) 59 mL/min/1.73m??? Low >=60 [facility] Comment on above: Order Comment: Speci men Type: BLOOD SPECIMENOrdering Facility: [facility] Address: [address] [place] [address] Result Comment: Loyda mated Glomerular Filtration Rate (eGFR) is calculated using the 2020 CKD-EPI creatinine equation. This equation utilizes serum creatinine, sex, and age as parameters. The creatinine assay has traceable calibration to isotope dilution-mass spectrometry. Refer to KDIGO guidelines for clinical interpretation. In patients with unstable renal function, e.g. those with acute kidney injury, the eGFR may not accurately reflect actual GFR. Performed By: #### 1 9123-9, 77331-5 ####[facility]ATORYCLIA [id number] [place] [id number] [place] Glucose [Mass/Vol] 101 mg/dL High 70-100 [facility] Comment on above: Order Comment: Tk wilkinson Type: BLOOD SPECIMENOrdering Facility: [facility] Address: [address] [place] [address] Result Comment: The [place] [employer] (ADA) provides guidance for cutoff values for fasting glucose and random glucose. The ADA defines fasting as no caloric intake for at least 8 hours. Fasting plasma glucose results between 100 to 125 mg/dL indicate increased risk for diabetes (prediabetes). Fasting plasma glucose results greater than or equal to 126 mg/dL meet the criteria for diagnosis of diabetes. In the absence of unequivocal hyperglycemia, results should be confirmed by repeat testing. In a patient with classic symptoms of hyperglycemia or hyperglycemic crisis, random plasma glucose results greater than or equal to 200 mg/dL meet the criteria for diagnosis of diabetes. Reference: Standards of Medical Care in Diabetes 2016, [place] [employer]. Diabetes Care. 2016.39(Suppl 1). Results may be falsely elevated after the administration of Sulfapyridine. Results may be falsely depressed after the administration of Sulfasalazine. Performed By: #### 1 9123-9, 00178-6 ####[facility]ATORYCLIA [id number] [place] [address] [place] Potassium [Moles/Vol] 4.3 mmol/L Normal 3.5-5.1 [facility] Comment on above: Order Comment: Tk wilkinson Type: BLOOD SPECIMENOrdering Facility: [facility] Address: [address] [place] [address] Performed By: #### 1 9123-9, 72041-6 ####[facility]ATORYCLIA [id number] [address] [place] Sodium [Moles/Vol] 140 mmol/L Normal 136-145 [facility] Comment on above: Order Comment: Speci men Type: BLOOD SPECIMENOrdering Facility: [facility] Address: [address] [place] [address] Performed By: #### 1 9123-9, 72042-6 ####[facility]ATORYCLIA [id number] [place] [address] [place] Urea nitrogen [Mass/Vol] 30 mg/dL High 06-14 [facility] Comment on above: Order Comment: Speci men Type: BLOOD SPECIMENOrdering Facility: [facility] Address: [address] [place] [address] Performed By: #### 1 9123-9, 40970-5 ####[facility]ATORYCLIA [id number] [address] [place] CBC W Auto Differential pane l (Bld)on 09-10-2023 Basophils (Bld) [#/Vol] 10*3/uL Normal <0.11 [facility] Comment on above: Order Comment: Speci men Type: BLOOD SPECIMENOrdering Facility: [facility] Address: [address] [place] [address] Performed By: #### 5 7021-8 ####[facility]ATORYCLIA [id number] [address] [place] Basophils/100 WBC (Bld) 0.4 % Normal [facility] Comment on above: Order Comment: Speci men Type: BLOOD SPECIMENOrdering Facility: [facility] Address: [address] [place] [address] Performed By: #### 5 7021-8 ####[facility]ATORYCLIA [id number] [address] Differential cell count method Nom (Bld) Auto Normal [facility] Comment on above: Order Comment: Speci men Type: BLOOD SPECIMENOrdering Facility: [facility] Address: [address] [place] [address] Performed By: #### 5 7021-8 ####[facility]ATORYCLIA [id number] [place] [address] [place] Eosinophils (Bld) [#/Vol] 0.25 10*3/uL Normal <0.46 [facility] Comment on above: Order Comment: Speci men Type: BLOOD SPECIMENOrdering Facility: [facility] Address: [address] [place] [address] Performed By: #### 5 7021-8 ####[facility]ATORYCLIA [id number] [place] [address] [place] Eosinophils/100 WBC (Bld) 4.5 % Normal [facility] Comment on above: Order Comment: Speci men Type: BLOOD SPECIMENOrdering Facility: [facility] Address: [address] [place] [address] Performed By: #### 5 7021-8 ####[facility]ATORYCLIA [id number] [address] [place] Erythrocyte distribution width (RBC) [Ratio] 14.1 % Normal 11.5-15.0 [facility] Comment on above: Order Comment: Speci men Type: BLOOD SPECIMENOrdering Facility: [facility] Address: [address] [place] [address] Performed By: #### 5 7021-8 ####[facility]ATORYCLIA [id number] [address] [place] Hematocrit (Bld) [Volume fraction] 24.9 % Low 36.0-46.0 [facility] Comment on above: Order Comment: Speci men Type: BLOOD SPECIMENOrdering Facility: [facility] Address: [address] [place] [address] Performed By: #### 5 7021-8 ####[facility]ATORYCLIA [id number] [place] [address] [place] Hemoglobin (Bld) [Mass/Vol] 8.2 g/dL Low 11.5-15.5 [facility] Comment on above: Order Comment: Speci men Type: BLOOD SPECIMENOrdering Facility: [facility] Address: [address] [place] [address] Performed By: #### 5 7021-8 ####[facility]ATORYCLIA [id number] [address] Immature granulocytes (Bld) [#/Vol] 0.03 10*3/uL Normal <0.10 [facility] Comment on above: Order Comment: Speci men Type: BLOOD SPECIMENOrdering Facility: [facility] Address: [address] [place] [address] Performed By: #### 5 7021-8 ####[facility]ATORYCLIA [id number] [address] Immature granulocytes/100 WBC (Bld) 0.5 % Normal [facility] Comment on above: Order Comment: Speci men Type: BLOOD SPECIMENOrdering Facility: [facility] Address: [address] [place] [address] Performed By: #### 5 7021-8 ####[facility]ATORYCLIA [id number] [address] [place] Lymphocytes (Bld) [#/Vol] 1.42 10*3/uL Normal 1.00-4.00 [facility] Comment on above: Order Comment: Speci men Type: BLOOD SPECIMENOrdering Facility: [facility] Address: [address] [place] [address] Performed By: #### 5 7021-8 ####[facility]ATORYCLIA [id number] [address] [place] Lymphocytes/100 WBC (Bld) 25.4 % Normal [facility] Comment on above: Order Comment: Speci men Type: BLOOD SPECIMENOrdering Facility: [facility] Address: [address] [place] [address] Performed By: #### 5 7021-8 ####[facility]ATORYCLIA [id number] [place] [address] [place] MCH (RBC) [Entitic mass] 31.7 pg Normal 26.0-34.0 [facility] Comment on above: Order Comment: Speci men Type: BLOOD SPECIMENOrdering Facility: [facility] Address: [address] [place] [address] Performed By: #### 5 7021-8 ####[facility]ATORYCLIA [id number] [place] [address] [place] MCHC (RBC) [Mass/Vol] 32.9 g/dL Normal 30.5-36.0 [facility] Comment on above: Order Comment: Speci men Type: BLOOD SPECIMENOrdering Facility: [facility] Address: [address] [place] [address] Performed By: #### 5 7021-8 ####[facility]ATORYCLIA [id number] [place] [address] [place] MCV (RBC) [Entitic vol] 96.1 fL Normal 80.0-100.0 [facility] Comment on above: Order Comment: Speci men Type: BLOOD SPECIMENOrdering Facility: [facility] Address: [address] [place] [address] Performed By: #### 5 7021-8 ####[facility]ATORYCLIA [id number] [place] [address] [place] Monocytes (Bld) [#/Vol] 0.35 10*3/uL Normal <0.87 [facility] Comment on above: Order Comment: Speci men Type: BLOOD SPECIMENOrdering Facility: [facility] Address: [address] [place] [address] Performed By: #### 5 7021-8 ####[facility]ATORYCLIA [id number] [place] [address] [place] Monocytes/100 WBC (Bld) 6.3 % Normal [facility] Comment on above: Order Comment: Speci men Type: BLOOD SPECIMENOrdering Facility: [facility] Address: [address] [place] [address] Performed By: #### 5 7021-8 ####[facility]ATORYCLIA [id number] [place] [address] [place] Neutrophils (Bld) [#/Vol] 3.53 10*3/uL Normal 1.45-7.50 [facility] Comment on above: Order Comment: Speci men Type: BLOOD SPECIMENOrdering Facility: [facility] Address: [address] [place] [address] Performed By: #### 5 7021-8 ####[facility]ATORYCLIA [id number] [place] [address] [place] Neutrophils/100 WBC (Bld) 62.9 % Normal [facility] Comment on above: Order Comment: Speci men Type: BLOOD SPECIMENOrdering Facility: [facility] Address: [address] [place] [address] Performed By: #### 5 7021-8 ####[facility]ATORYCLIA [id number] [place] [address] [place] Nucleated RBC (Bld) [#/Vol] 10*3/uL Normal <0.01 [facility] Comment on above: Order Comment: Speci men Type: BLOOD SPECIMENOrdering Facility: [facility] Address: [address] [place] [address] Performed By: #### 5 7021-8 ####[facility]ATORYCLIA [id number] [address] [place] Nucleated RBC/100 WBC (Bld) [Ratio] 0.0 /100 WBC Normal [facility] Comment on above: Order Comment: Speci men Type: BLOOD SPECIMENOrdering Facility: [facility] Address: [address] [place] [address] Performed By: #### 5 7021-8 ####[facility]ATORYCLIA [id number] [place] [address] [place] Platelet mean volume (Bld) [Entitic vol] 8.6 fL Low 9.0-12.7 [facility] Comment on above: Order Comment: Speci men Type: BLOOD SPECIMENOrdering Facility: [facility] Address: [address] [place] [address] Performed By: #### 5 7021-8 ####[facility]ATORYCLIA [id number] [place] [id number] [facility] Platelets (Bld) [#/Vol] 172 10*3/uL Normal 150-400 [facility] Comment on above: Order Comment: Speci men Type: BLOOD SPECIMENOrdering Facility: [facility] Address: [address] [place] [address] Performed By: #### 5 7021-8 ####[facility]ATORYCLIA [id number] [address] [place] RBC (Bld) [#/Vol] 2.59 10*6/uL Low 3.90-5.20 [facility] Comment on above: Order Comment: Speci men Type: BLOOD SPECIMENOrdering Facility: [facility] Address: [address] [place] [address] Performed By: #### 5 7021-8 ####[facility]ATORYCLIA [id number] [address] WBC (Bld) [#/Vol] 5.60 10*3/uL Normal 3.70-11.00 [facility] Comment on above: Order Comment: Speci men Type: BLOOD SPECIMENOrdering Facility: [facility] Address: [address] [place] [address] Performed By: #### 5 7021-8 ####[facility]ATORYCLIA [id number] [address] [place] Magnesium SerPl-mCncon 09-10 Magnesium [Mass/Vol] 2.3 mg/dL Normal 1.6-2.6 [facility] Comment on above: Order Comment: Speci men Type: BLOOD SPECIMENOrdering Facility: [facility] Address: [address] [place] [address] Performed By: #### 1 9123-9, 64282-8 ####[facility]ATORYCLIA [id number] [address] [place] Basic metabolic 2000 panelon 09-09-2023 Anion gap [Moles/Vol] 7 mmol/L Normal 5-16 [facility] Comment on above: Order Comment: Speci men Type: BLOOD SPECIMENOrdering Facility: [facility] Address: [address] [facility] [place] [address] Performed By: #### 2 4321-2, ####[facility]ATORYCLIA [id number] [place] [id number] [place] Calcium [Mass/Vol] 8.0 mg/dL Low 8.5-10.5 [facility] Comment on above: Order Comment: Speci men Type: BLOOD SPECIMENOrdering Facility: [facility] Address: [place] [address] Performed By: #### 2 4321-2, ####[facility]ATORYCLIA [id number] [place] [id number] [place] Chloride [Moles/Vol] 107 mmol/L Normal 98-107 [facility] Comment on above: Order Comment: Speci men Type: BLOOD SPECIMENOrdering Facility: [facility] Address: [place] [address] Performed By: #### 2 4321-2, ####[facility]ATORYCLIA [id number] [place] [id number] [place] CO2 [Moles/Vol] 23 mmol/L Normal 21-32 [facility] Comment on above: Order Comment: Speci men Type: BLOOD SPECIMENOrdering Facility: [facility] Address: [place] [address] Performed By: #### 2 4321-2, ####[facility]ATORYCLIA [id number] [place] [id number] [place] Creatinine [Mass/Vol] 1.01 mg/dL High 0.51-0.95 [facility] Comment on above: Order Comment: Speci men Type: BLOOD SPECIMENOrdering Facility: [facility] Address: [address], [place] [address] Result Comment: Mabel ents receiving either N-Acetylcysteine (NAC) or Metamizole prior to venipuncture, may have falsely depressed results. Performed By: #### 2 4321-2, 83969-9 ####[facility]ATORYCLIA [id number] [place] [id number] [place] Creatinine and Glomerular filtration rate.predicted panel (S/P/Bld) 56 mL/min/1.73m??? Low >=60 [facility] Comment on above: Order Comment: Tk wilkinson Type: BLOOD SPECIMENOrdering Facility: [facility] Address: [address] [place] [address] Result Comment: Loyda mated Glomerular Filtration Rate (eGFR) is calculated using the 2020 CKD-EPI creatinine equation. This equation utilizes serum creatinine, sex, and age as parameters. The creatinine assay has traceable calibration to isotope dilution-mass spectrometry. Refer to KDIGO guidelines for clinical interpretation. In patients with unstable renal function, e.g. those with acute kidney injury, the eGFR may not accurately reflect actual GFR. Performed By: #### 2 4321-2, 25042-9 ####[facility]ATORYCLIA [id number] [place] [address] [place] Glucose [Mass/Vol] 95 mg/dL Normal 70-100 [facility] Comment on above: Order Comment: Tk wilkinson Type: BLOOD SPECIMENOrdering Facility: [facility] Address: [address] [place] [address] Result Comment: The [place] [employer] (ADA) provides guidance for cutoff values for fasting glucose and random glucose. The ADA defines fasting as no caloric intake for at least 8 hours. Fasting plasma glucose results between 100 to 125 mg/dL indicate increased risk for diabetes (prediabetes). Fasting plasma glucose results greater than or equal to 126 mg/dL meet the criteria for diagnosis of diabetes. In the absence of unequivocal hyperglycemia, results should be confirmed by repeat testing. In a patient with classic symptoms of hyperglycemia or hyperglycemic crisis, random plasma glucose results greater than or equal to 200 mg/dL meet the criteria for diagnosis of diabetes. Reference: Standards of Medical Care in Diabetes 2016, [place] [employer]. Diabetes Care. 2016.39(Suppl 1). Results may be falsely elevated after the administration of Sulfapyridine. Results may be falsely depressed after the administration of Sulfasalazine. Performed By: #### 2 432-2, ####[facility]ATORYCLIA [id number] [place] [id number] [place] Potassium [Moles/Vol] 4.7 mmol/L Normal 3.5-5.1 [facility] Comment on above: Order Comment: Speci men Type: BLOOD SPECIMENOrdering Facility: [facility] Address: [address] [place] [address] Performed By: #### 2 432-2, ####[facility]ATORYCLIA [id number] [place] [id number] [place] Sodium [Moles/Vol] 137 mmol/L Normal 136-145 [facility] Comment on above: Order Comment: Speci men Type: BLOOD SPECIMENOrdering Facility: [facility] Address: [address] [place] [address] Performed By: #### 2 43211-21, ####[facility]ORATORYCLIA [id number] [place] [address] [place] Urea nitrogen [Mass/Vol] 40 mg/dL High 06-14 [facility] Comment on above: Order Comment: Speci men Type: BLOOD SPECIMENOrdering Facility: [facility] Address: [address] [place] [address] Performed By: #### 2 432-2, ####[facility]ATORYCLIA [id number] [place] [id number] [place] CBC W Auto Differential pane l (Bld)on 09-09-2023 Basophils (Bld) [#/Vol] 0.03 10*3/uL Normal <0.11 [facility] Comment on above: Order Comment: Speci men Type: BLOOD SPECIMENOrdering Facility: [facility] Address: [address] [place] [address] Performed By: #### 5 7021-8 ####[facility]ATORYCLIA [id number] [place] [address] [place] Basophils/100 WBC (Bld) 0.5 % Normal [facility] Comment on above: Order Comment: Speci men Type: BLOOD SPECIMENOrdering Facility: [facility] Address: [address] [place] [address] Performed By: #### 5 7021-8 ####[facility]ORATORYCLIA [id number] [place] [address] [place] Differential cell count method Nom (Bld) Auto Normal [facility] Comment on above: Order Comment: Speci men Type: BLOOD SPECIMENOrdering Facility: [facility] Address: [address] [place] [address] Performed By: #### 5 7021-8 ####[facility] LAB[facility]ATORYCLIA [id number] [place] [address] [place] Eosinophils (Bld) [#/Vol] 0.26 10*3/uL Normal <0.46 [facility] Comment on above: Order Comment: Speci men Type: BLOOD SPECIMENOrdering Facility: [facility] Address: [address] [place] [address] Performed By: #### 5 7021-8 ####[facility]ATORYCLIA [id number] [address] [place] Eosinophils/100 WBC (Bld) 4.3 % Normal [facility] Comment on above: Order Comment: Speci men Type: BLOOD SPECIMENOrdering Facility: [facility] Address: [address] [place] [address] Performed By: #### 5 7021-8 ####[facility]ATORYCLIA [id number] [place] [address] [place] Erythrocyte distribution width (RBC) [Ratio] 13.9 % Normal 11.5-15.0 [facility] Comment on above: Order Comment: Speci men Type: BLOOD SPECIMENOrdering Facility: [facility] Address: [address] [place] [address] Performed By: #### 5 7021-8 ####[facility]ATORYCLIA [id number] [place] [address] [place] Hematocrit (Bld) [Volume fraction] 26.4 % Low 36.0-46.0 [facility] Comment on above: Order Comment: Speci men Type: BLOOD SPECIMENOrdering Facility: [facility] Address: [address] [place] [address] Performed By: #### 5 7021-8 ####[facility]ATORYCLIA [id number] [place] [address] [place] Hemoglobin (Bld) [Mass/Vol] 8.6 g/dL Low 11.5-15.5 [facility] Comment on above: Order Comment: Speci men Type: BLOOD SPECIMENOrdering Facility: [facility] Address: [address] [place] [address] Performed By: #### 5 7021-8 ####[facility]ATORYCLIA [id number] [place] [address] [place] Immature granulocytes (Bld) [#/Vol] 0.04 10*3/uL Normal <0.10 [facility] Comment on above: Order Comment: Speci men Type: BLOOD SPECIMENOrdering Facility: [facility] Address: [address] [place] [address] Performed By: #### 5 7021-8 ####[facility]ATORYCLIA [id number] [place] [address] [place] Immature granulocytes/100 WBC (Bld) 0.7 % Normal [facility] Comment on above: Order Comment: Speci men Type: BLOOD SPECIMENOrdering Facility: [facility] Address: [address] [place] [address] Performed By: #### 5 7021-8 ####[facility]ATORYCLIA [id number] [place] [address] [place] Lymphocytes (Bld) [#/Vol] 1.28 10*3/uL Normal 1.00-4.00 [facility] Comment on above: Order Comment: Speci men Type: BLOOD SPECIMENOrdering Facility: [facility] Address: [address] [place] [address] Performed By: #### 5 7021-8 ####[facility]ATORYCLIA [id number] [address] [place] Lymphocytes/100 WBC (Bld) 21.3 % Normal [facility] Comment on above: Order Comment: Speci men Type: BLOOD SPECIMENOrdering Facility: [facility] Address: [address] [place] [address] Performed By: #### 5 7021-8 ####[facility]ATORYCLIA [id number] [place] [address] [place] MCH (RBC) [Entitic mass] 31.3 pg Normal 26.0-34.0 [facility] Comment on above: Order Comment: Speci men Type: BLOOD SPECIMENOrdering Facility: [facility] Address: [address] [place] [address] Performed By: #### 5 7021-8 ####[facility]ATORYCLIA [id number] [address] [place] MCHC (RBC) [Mass/Vol] 32.6 g/dL Normal 30.5-36.0 [facility] Comment on above: Order Comment: Speci men Type: BLOOD SPECIMENOrdering Facility: [facility] Address: [address] [place] [address] Performed By: #### 5 7021-8 ####[facility]ORYCLIA [id number] [place] [address] [place] MCV (RBC) [Entitic vol] 96.0 fL Normal 80.0-100.0 [facility] Comment on above: Order Comment: Speci men Type: BLOOD SPECIMENOrdering Facility: [facility] Address: [address] [place] [address] Performed By: #### 5 7021-8 ####[facility]ATORYCLIA [id number] [address] [place] Monocytes (Bld) [#/Vol] 0.42 10*3/uL Normal <0.87 [facility] Comment on above: Order Comment: Speci men Type: BLOOD SPECIMENOrdering Facility: [facility] Address: [address] [place] [address] Performed By: #### 5 7021-8 ####[facility]ATORYCLIA [id number] [place] [id number] [place] Monocytes/100 WBC (Bld) 7.0 % Normal [facility] Comment on above: Order Comment: Speci men Type: BLOOD SPECIMENOrdering Facility: [facility] Address: [address] [place] [address] Performed By: #### 5 7021-8 ####[facility]ATORYCLIA [id number] [place] [address] [place] Neutrophils (Bld) [#/Vol] 3.97 10*3/uL Normal 1.45-7.50 [facility] Comment on above: Order Comment: Speci men Type: BLOOD SPECIMENOrdering Facility: [facility] Address: [address] [place] [address] Performed By: #### 5 7021-8 ####[facility]ATORYCLIA [id number] [place] [address] [place] Neutrophils/100 WBC (Bld) 66.2 % Normal [facility] Comment on above: Order Comment: Speci men Type: BLOOD SPECIMENOrdering Facility: [facility] Address: [address] [place] [address] Performed By: #### 5 7021-8 ####[facility]ATORYCLIA [id number] [place] [address] [place] Nucleated RBC (Bld) [#/Vol] 10*3/uL Normal <0.01 [facility] Comment on above: Order Comment: Speci men Type: BLOOD SPECIMENOrdering Facility: [facility] Address: [address] [place] [address] Performed By: #### 5 7021-8 ####[facility]ATORYCLIA [id number] [place] [address] [place] Nucleated RBC/100 WBC (Bld) [Ratio] 0.0 /100 WBC Normal [facility] Comment on above: Order Comment: Speci men Type: BLOOD SPECIMENOrdering Facility: [facility] Address: [address] [place] [address] Performed By: #### 5 7021-8 ####[facility]ATORYCLIA [id number] [place] [id number] [place] Platelet mean volume (Bld) [Entitic vol] 8.4 fL Low 9.0-12.7 [facility] Comment on above: Order Comment: Speci men Type: BLOOD SPECIMENOrdering Facility: [facility] Address: [address] [place] [address] Performed By: #### 5 7021-8 ####[facility]ATORYCLIA [id number] [place] [id number] [place] Platelets (Bld) [#/Vol] 170 10*3/uL Normal 150-400 [facility] Comment on above: Order Comment: Speci men Type: BLOOD SPECIMENOrdering Facility: [facility] Address: [address] [place] [address] Performed By: #### 5 7021-8 ####[facility]ATORYCLIA [id number] [place] [address] [place] RBC (Bld) [#/Vol] 2.75 10*6/uL Low 3.90-5.20 [facility] Comment on above: Order Comment: Speci men Type: BLOOD SPECIMENOrdering Facility: [facility] Address: [address] [place] [address] Performed By: #### 5 7021-8 ####[facility]ATORYCLIA [id number] [place] [id number] [place] WBC (Bld) [#/Vol] 6.00 10*3/uL Normal 3.70-11.00 [facility] Comment on above: Order Comment: Speci men Type: BLOOD SPECIMENOrdering Facility: [facility] Address: [address] [place] [address] Performed By: #### 5 7021-8 ####[facility]ATORYCLIA [id number] [address] [place] CONSULT PROGon 09-09-2023 CONSULT PROG HNO ID: [id number] Author: Cherri Barragan ashely Service: Pharmacy Author Type: Pharmacist Type: Consult Progress Note Filed: 09/09/2023 10:50 PM Note Text: PHARMACY VANCOMYCIN DOSING NOTE Patient Name: Desirae Archuleta Admission Date: 09/06/2023 Date of Consult: 09/09/2023 Time of Consult: 9:57 PM Indication: Bone AND joint infection Goal Range: 15-20 mcg/mL RECOMMENDATIONS/PLAN: Pharmacy consulted for vancomycin dosing for Desirae Archuleta, a 83 year old female. 1. Patient is currently ordered Vancomycin 1.25 g IV q24h. Today is day 4 of therapy. 2. The most recent vancomycin level was 13.3 mcg/mL drawn at 2133 on 09/09. This is a 24 hour level on the 4th day of therapy. 3. Will keep the dose at 1.25 gm despite the trough being subtherapeutic. The order has already been reconciled for discharge. 4. The next vancomycin level will be ordered for 09/12 unless clinically indicated sooner. (Pharmacy will order) We will follow patient renal function, vancomycin levels and doses with you during the course of therapy. Additional recommendations will appear in follow up notes. If you have any questions, please contact pharmacy at [phone]. Age: [age] year old Allergies: ALLERGIES Allergen Reactions Augmentin [Amoxicil* Diarrhea Tolerated cefazolin and ceftriaxone at [facility] in 08/2023 Keflex [Cephalexin] Rash Hand and buttocks Tolerated cefazolin and ceftriaxone at [facility] in 08/2023 [place] [Hydrocodone-* Vomiting Taxol [Paclitaxel] Anaphylatic Reaction, went to [facility] ER on 02/04/09 Adhesive Tape (Malaika* Other: See Comments Itching with prolonged use Last 3 Encounter Wt Readings: Date: Wt: 09/05/2023 80.2 kg (176 lb 11.2 oz) 06/04/2023 80.3 kg (177 lb) 03/16/2023 77.6 kg (171 lb) Last 1 Encounter Ht Readings: Date: Ht: 09/05/2023 160 cm (5' 3 ) CrCl: 43.9 mL/min Temp (24hrs), Av.3 ?C (97.3 ?F), Min:35.8 ?C (96.5 ?F), Max:36.7 ?C (98.1 ?F) - Current Temp: 36.2 ?C (97.2 ?F) Labs BUN (mg/dL) Date Value 09/09/2023 40 (H) 09/06/2023 29 (H) 04/13/2023 29 (H) Creatinine (mg/dL) Date Value 09/09/2023 1.01 (H) 09/06/2023 0.99 (H) 04/13/2023 1.04 (H) WBC (k/uL) Date Value 09/09/2023 6.00 03/16/2023 9.45 10/04/2022 9.40 Vancomycin Levels: Vancomycin (ug/mL) Date/Time Value 09/09/20232032 13.3 Cherri Barragan, [facility] Normal [facility] Magnesium SerPl-mCncon 09-09 Magnesium [Mass/Vol] 2.3 mg/dL Normal 1.6-2.6 [facility] Comment on above: Order Comment: Specenrico wilkinson Type: BLOOD SPECIMENOrdering Facility: [facility] Address: [address] [place] [address] Performed By: #### 2 4321-2, 82276-2 ####[facility]ATORYCLIA [id number] [place] [address] [place] Vancomycin [place] SerPl-mCncon 09-09-2023 Vancomycin random [Mass/Vol] 13.3 ug/mL Normal 10.0-25.0 [facility] Comment on above: Order Comment: Speci men Type: BLOOD SPECIMENOrdering Facility: [facility] Address: [address] [place] [address] Result Comment: Refe rence ranges and high/low indicator flags are provided as general guidelines only. The treating physician must determine appropriate target levels/dosing based on the specific clinical situation. Performed By: #### 4 091-5 ####[facility]ATORYCLIA [id number] [address] [place] CONSULTon 09-08-2023 CONSULT HNO ID: [id number] Author: Lexi Pandya MD Service: Hospital Medicine Author Type: Physician Type: Consults Filed: 09/09/2023 3:43 PM Note Text: INTERNAL MEDICINE ADMISSION NOTE HISTORY AND PHYSICAL Patient Name: Desirae Archuleta Admission Date: 09/06/2023 Date of Evaluation: 09/08/2023 Time of Evaluation: 2:09 PM CHIEF COMPLAINT: Medical management . 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 REVIEW OF SYSTEMS: (since the onset of symptoms) General: Denies fever, chills, night sweats, weight loss, anorexia. Lungs: Denies cough, sputum production, shortness of breath, dyspnea on exertion. Cardiac: Denies angina, palpitations. Abdomen: Denies melena, hematochezia, hematemesis. Genitourinary: Denies dysuria, urgency, frequency. Extremities: Denies swelling cyanosis. Musculoskeletal: See above Neurologic: Denies focal numbness, weakness, tingling. Lymphatic: Denies adenopathy. Hematologic: Denies easy bruising and/or hemorrhage. Skin: Denies rash breakdown. Psychiatric: Denies suicidal or homicidal ideation. PAST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 of 09/06/2023 Medication Sig - dapagliflozin (FARXIGA) 10 mg tablet Take 10 mg by mouth daily with breakfast. - spironolactone (ALDACTONE) 25 mg tablet Take 50 mg by mouth every morning. - digoxin (LANOXIN) 125 mcg (0.125 mg) tablet Take 125 mcg by mouth every other day. Takes in am - metoprolol tartrate, short acting, (LOPRESSOR) 25 mg tablet Take 25 mg by mouth daily at bedtime. - leflunomide (ARAVA) 10 mg tablet Take 10 mg by mouth daily with lunch. - levothyroxine (SYNTHROID) 88 mcg tablet TAKE ONE TABLET BY MOUTH ONCE DAILY ON EMPTY STOMACH every Mon, Tu, Th, Mon, Sat Two tablets every Sun and Wed (Patient taking differently: Take 112 mcg by mouth every morning.) - omeprazole (PRILOSEC) 40 mg capsule Take 1 capsule by mouth once daily. (Patient taking differently: Take 40 mg by mouth every morning.) - aspirin, enteric coated (ASPIRIN, ENTERIC COATED) 325 mg EC tablet Take 1 tablet by mouth twice daily for 14 days. - sacubitril-valsartan (ENTRESTO) 49-51 mg tablet Take 1 tablet by mouth twice daily. - torsemide (DEMADEX) 20 mg tablet Take 20 mg by mouth every morning. - MEDICATION, NON-DATABASE 300 mg daily with lunch. Brain Health Support- 2 gummies Last dose 03/29/23 - allopurinol (ZYLOPRIM) 300 mg tablet TAKE ONE TABLET BY MOUTH ONCE DAILY FOR GOUT (Patient taking differently: Take 300 mg by mouth every morning. TAKE ONE TABLET BY MOUTH ONCE DAILY FOR GOUT) - simvastatin (ZOCOR) 40 mg tablet Take 1 tablet by mouth daily at bedtime. - Mudfnncvjuqjm-Fh-Zidk- Minerals (ONE-A-DAY WOMENS FORMULA) 27-0.4 mg ORAL Tab Take 1 tablet by mouth daily with lunch. Last dose 03/29/23 - CALCIUM 600 WITH VITAMIN D3 600 MG-200 UNIT TAB Take 1 tablet by mouth daily with lunch. Last dose 03/29/23 on vitamins/ supplements I have interviewed and examined the patient. I have reviewed the medical record and/or the pre-anesthesia evaluation, pertinent labs, and test results. This contains updated information obtained within 48 hours of Surgery/Procedure. SIGNATURE: John Prieto DO PATIENT NAME: Desirae Archuleta DATE: September 06, 2023 TIME: 2:20 PM CSN: [id number] [facility] Bacteria Fld Culton 09-06-20 Bacteria identified Cx Nom (Body fld) CULTURE, BODY FLD: No growth 14 days GRAM STAIN: Many Polymorphonuclear leukocytes No organisms seen [facility] Comment on above: Performed By: #### 6 11-4 ####[facility] [id number] [place] [address] [place] Bacteria Spec Anaerobe Culto n 09-06-2023 Bacteria identified Anaer cx Nom (Unsp spec) CULTURE, ANAEROBE: Anaerobe culture reviewed, negative at day 14. [facility] Comment on above: Performed By: #### 6 35-3, 58567-7 ####[facility] [id number] [address] Bacteria identified Anaer cx Nom (Unsp spec) CULTURE, ANAEROBE: Anaerobe culture reviewed, negative at day 14. Normal [facility] Comment on above: Performed By: #### 6 35-3 ####[facility] [id number] [address] OF [place] Bacteria Tiss Culton 09-06-2 023 Bacteria identified Cx Nom (Tiss) CULTURE, TISSUE: No growth 14 days GRAM STAIN: Moderate Polymorphonuclear leukocytes No organisms seen Normal [facility] Comment on above: Performed By: #### 6 35-3, 83511-5 ####[facility] [id number] [address] Bacteria identified Cx Nom (Tiss) ORGANISM ID: 1 Rare Alpha strep, not pneumococcus Not viable for a sensitivity. GRAM STAIN: Rare Polymorphonuclear leukocytes No organisms seen Abnormal [facility] Comment on above: Performed By: #### 4 3408-4 ####[facility] [id number] [address] Bacteria identified Cx Nom (Tiss) ORGANISM ID: 1 Rare Alpha strep, not pneumococcus Not viable for a sensitivity. ORGANISM ID: 2 * - Liquid media ONLY Cutibacterium acnes BLACT: Negative GRAM STAIN: Rare Polymorphonuclear leukocytes No organisms seen Abnormal [facility] Comment on above: Performed By: #### 4 3408-4 ####[facility] [id number] [address] Bacteria identified Cx Nom (Tiss) CULTURE, TISSUE: No growth 14 days GRAM STAIN: Rare Polymorphonuclear leukocytes No organisms seen Normal [facility] Comment on above: Performed By: #### 4 3408-4 ####[facility] [id number] [address] [place] Bacteria Wnd Culton 09-06-20 23 Bacteria identified Cx Nom (Wound) ORGANISM ID: 1 Rare Alpha strep, not pneumococcus Not viable for a sensitivity. GRAM STAIN: Many Polymorphonuclear leukocytes No organisms seen Abnormal [facility] Comment on above: Performed By: #### 6 462-6 ####[facility]ORY[facility]IA [id number] [place] [address] [place] Basic metabolic 2000 panelon 09-06-2023 Anion gap [Moles/Vol] 7 mmol/L Normal 5-16 [facility] Comment on above: Order Comment: Speci men Type: BLOOD SPECIMEN Ordering Facility: [facility] Address: [address] [place] [address] Performed By: #### 2 4321-2 #### [facility] CLIA [id number] [address] [place] [address] [place] Calcium [Mass/Vol] 8.8 mg/dL Normal 8.5-10.5 [facility] Comment on above: Order Comment: Speci men Type: BLOOD SPECIMEN Ordering Facility: [facility] Address: [address] [place] [address] Performed By: #### 2 4321-2 #### [facility] CLIA [id number] [address] [place] [address] [place] Chloride [Moles/Vol] 104 mmol/L Normal 98-107 [facility] Comment on above: Order Comment: Speci men Type: BLOOD SPECIMEN Ordering Facility: [facility] Address: [address] [place] [address] Performed By: #### 2 4321-2 #### [facility] CLIA [id number] [address] [place] [address] [place] CO2 [Moles/Vol] 27 mmol/L Normal 21-32 [facility] Comment on above: Order Comment: Speci men Type: BLOOD SPECIMEN Ordering Facility: [facility] Address: [address] [place] [address] Performed By: #### 2 4321-2 #### [facility] CLIA [id number] [address] [place] [address] [place] Creatinine [Mass/Vol] 0.99 mg/dL High 0.51-0.95 [facility] Comment on above: Order Comment: Speci men Type: BLOOD SPECIMEN Ordering Facility: [facility] Address: [address] [place] [address] Result Comment: Mabel ents receiving either N-Acetylcysteine (NAC) or Metamizole prior to venipuncture, may have falsely depressed results. Performed By: #### 2 4321-2 #### [facility] CLIA [id number] [address] [place] [address] [place] Creatinine and Glomerular filtration rate.predicted panel (S/P/Bld) 57 mL/min/1.73m??? Low >=60 [facility] Comment on above: Order Comment: Specenrico men Type: BLOOD SPECIMEN Ordering Facility: [facility] Address: [address] [place] [address] Result Comment: Loyda mated Glomerular Filtration Rate (eGFR) is calculated using the 2020 CKD-EPI creatinine equation. This equation utilizes serum creatinine, sex, and age as parameters. The creatinine assay has traceable calibration to isotope dilution-mass spectrometry. Refer to KDIGO guidelines for clinical interpretation. In patients with unstable renal function, e.g. those with acute kidney injury, the eGFR may not accurately reflect actual GFR. Performed By: #### 2 4321-2 #### [facility] CLIA [id number] [address] [place] [address] [place] Glucose [Mass/Vol] 102 mg/dL High 70-100 [facility] Comment on above: Order Comment: Tk wilkinson Type: BLOOD SPECIMEN Ordering Facility: [facility] Address: [address] [place] [address] Result Comment: The [place] [employer] (ADA) provides guidance for cutoff values for fasting glucose and random glucose. The ADA defines fasting as no caloric intake for at least 8 hours. Fasting plasma glucose results between 100 to 125 mg/dL indicate increased risk for diabetes (prediabetes). Fasting plasma glucose results greater than or equal to 126 mg/dL meet the criteria for diagnosis of diabetes. In the absence of unequivocal hyperglycemia, results should be confirmed by repeat testing. In a patient with classic symptoms of hyperglycemia or hyperglycemic crisis, random plasma glucose results greater than or equal to 200 mg/dL meet the criteria for diagnosis of diabetes. Reference: Standards of Medical Care in Diabetes 2016, [place] [employer]. Diabetes Care. 2016.39(Suppl 1). Results may be falsely elevated after the administration of Sulfapyridine. Results may be falsely depressed after the administration of Sulfasalazine. Performed By: #### 2 4321-2 #### [facility] CLIA [id number] [address] [place] [address] [place] Potassium [Moles/Vol] 4.5 mmol/L Normal 3.5-5.1 [facility] Comment on above: Order Comment: Speci men Type: BLOOD SPECIMEN Ordering Facility: [facility] Address: [address] [place] [address] Performed By: #### 2 4321-2 #### [facility] CLIA [id number] [address] [place] [address] [place] Sodium [Moles/Vol] 138 mmol/L Normal 136-145 [facility] Comment on above: Order Comment: Madhui men Type: BLOOD SPECIMEN Ordering Facility: [facility] Address: [address] [place] [address] Performed By: #### 2 4321-2 #### [facility] CLIA [id number] [address] [place] [address] [place] Urea nitrogen [Mass/Vol] 29 mg/dL High 7-26 [facility] Comment on above: Order Comment: Speci men Type: BLOOD SPECIMEN Ordering Facility: [facility] Address: [address] [place] [address] Performed By: #### 2 4321-2 #### [facility] CLIA [id number] [address] [place] [address] [place] ECG COMPLETEon 09-06-2023 ECG COMPLETE Ventricular Rate : 8 2 BPM Atrial Rate : 82 BPM P-R Interval : 168 ms QRS Duration : 82 ms Q-T Interval : 366 ms QTC Calculation(Bazett) : 427 ms Calculated P Clayton : 42 degrees Calculated R Clayton : -16 degrees Calculated T Clayton : 67 degrees Normal sinus rhythm Voltage criteria for Left ventricular hypertrophy Non-specific ST and T wave changes Inferolateral leads Abnormal ECG When compared with ECG of 12-APR-2023 14:39, No significant change was found Confirmed by CLAUDIA ARANGO MD ([id number]) on 09/06/2023 10:11:44 PM NAME : DESIRAE ARCHULETA PID : [id number] : 1940 Gender : Female Race : ORD : [id number] Procedure Date : Sep 06 2023 13:29:09 Edit Date : Sep 06 2023 22:11:47 Diagnosis: Normal sinus rhythm Voltage criteria for Left ventricular hypertrophy Non-specific ST and T wave changes Inferolateral leads Abnormal ECG When compared with ECG of 12-APR-2023 14:39, No significant change was found Confirmed by CLAUDIA ARANGO MD ([id number]) on 09/06/2023 10:11:44 PM Test Reason : STAT Location : 23 : SURG MROR Overread By : CLAUDIA ARANGO MD Edited By : CLADUIA ARANGO MD Referred By : , Acquired by : ANA GAVIN [facility] HISTORY PHYSICALon HISTORY PHYSICAL HNO ID: [id number] Author: Gilberto Watson DO Service: Orthopaedic Surgery Author Type: Physician Type: HANDP Filed: 09/06/2023 12:29 PM Note Text: Patient presents for revision left shoulder surgery after recent dislocation of her left reverse shoulder prosthesis. She underwent closed reduction yesterday which was successful but redislocation occurred in the postoperative area. PHYSICAL EXAMINATION: General appearance: Well appearing, alert, in no acute distress, well-hydrated, well nourished. Skin: Skin color, texture, turgor normal, no suspicious rashes or lesions Head: Normocephalic, no masses, lesions, tenderness or abnormalities Eyes: Anicteric sclera. Pupils are equally round and reactive to light. Extraocular movements are intact. Ears: External ears normal, canals clear Nose/Sinuses: Nares normal, septum midline, mucosa normal, no drainage or sinus tenderness Oropharynx: Lips, mucosa, and tongue normal, teeth and gums normal, oropharynx normal Neck: Supple, no adenopathy; thyroid symmetric, normal size, no bruits Back: not examined Lungs: Lungs clear to auscultation. No wheezing, rhonchi, rales. Heart: RRR without murmur, gallop, or rubs. No ectopy Abdomen: Normal abdominal exam, Abdomen soft, non-tender. Bowel sounds normal. No masses, organomegaly Extremities: No deformities, edema, skin discoloration, clubbing or cyanosis. Good capillary refill. Musculoskeletal: See office note Peripheral pulses: Normal Neuro: Gait normal. Reflexes normal and symmetric. Sensation grossly intact. Plan: I discussed with the patient and her family today the options for treating this complex situation about her left shoulder. She has a nonunited acromion fracture which is brought the acromion into a position where her deltoid is not appropriately tensioned to create stability of reverse shoulder replacement. Secondary to that she has developed instability of her implant without any trauma. We discussed that further tensioning and lengthening with larger implants will likely result in continued displacement of the acromion and continued instability. I would recommend that we unlinked the 2 problems by converting the reverse shoulder arthroplasty to a hemiarthroplasty and plating the acromion fracture with bone graft. we would then allow the acromion to heal and subsequently could convert back to reverse shoulder arthroplasty in the future if she would like for we could leave the hemiarthroplasty in place. The patient understands this and wants to proceed with this plan. HANDP reviewed-patient states no interval changes Gilberto Watson DO Normal [facility] Microorganism Spec Culton Microorganism identified Cx Nom (Unsp spec) ORGANISM ID: 1 One colony Mold ITS2 and D2 sequencing identified this mold colony as belonging to the order Polyporales, which is comprised of environmental fungi not typically described as agents of human disease. It is suspected to represent a contaminant. Possible contaminant. FUNGAL SMEAR: No fungus seen Abnormal [facility] Comment on above: Performed By: #### 1 1475-1 ####[facility] LABCLIA [id number] [place] [address] [place] Microorganism identified Cx Nom (Unsp spec) CULTURE, AFB: No Acid Fast Bacilli isolated after 42 days AFB STAIN: No acid fast bacilli seen by flurochrome stain Normal [facility] Comment on above: Performed By: #### 1 1475-1 ####[facility] LABCLIA [id number] [address] [address] [place] Microorganism identified Cx Nom (Unsp spec) CULTURE, FUNGAL: No Fungus isolated after 28 days FUNGAL SMEAR: No fungus seen Normal [facility] Comment on above: Performed By: #### 1 1475-1 ####[facility] LABCLIA [id number] [address] [place] Microorganism identified Cx Nom (Unsp spec) CULTURE, AFB: No Acid Fast Bacilli isolated after 42 days AFB STAIN: No acid fast bacilli seen by flurochrome stain [facility] Comment on above: Performed By: #### 1 1475-1 ####[facility] LABCLIA [id number] [place] [address] [place] Microorganism identified Cx Nom (Unsp spec) CULTURE, AFB: No Acid Fast Bacilli isolated after 42 days AFB STAIN: No acid fast bacilli seen by flurochrome stain [facility] Comment on above: Performed By: #### 1 1475-1 ####[facility] LABCLIA [id number] [address] [place] Microorganism identified Cx Nom (Unsp spec) CULTURE, AFB: No Acid Fast Bacilli isolated after 42 days AFB STAIN: No acid fast bacilli seen by flurochrome stain [facility] Comment on above: Performed By: #### 1 1475-1 ####[facility] LABCLIA [id number] [address] [place] OPERATIVE NOon 09-06-2023 OPERATIVE NO HNO ID: [id number] Author: Gilberto Watson DO Service: Orthopaedic Surgery Author Type: Physician Type: Operative Report Filed: 09/06/2023 5:17 PM Note Text: ORTHO OPERATIVE REPORT LOG ID: [id number] Surgery/Procedure Date: 09/06/2023 Incision/Procedure Start Time: 3:39 PM Incision Close/Procedure End Time: Surgeon(s)/Procedurali st(s) and Transit Proof Machine Operator(s): Surgeon(s) and Role: * Gilberto Watson DO - Primary Distillery Supervisor: [employer] Distillery Supervisor (Relief): [employer] Nena Palmer [employer] Procedure(s): 1. Removal reverse shoulder arthroplasty left shoulder 2. Irrigation and debridement left infected shoulder 3. Placement antibiotic spacer Anesthesia: General Procedure Details: This is a an 83-year-old female who had reverse shoulder arthroplasty approximately 4 months ago and was doing well until an acromion fracture approximately 2 months ago. She has been dealing with that appropriately but came to the office on Monday with an unstable reverse having had no recent trauma aside from a recent hospitalization for a GI infection. The patient subsequently was closed reduced at an outside facility and dislocated in the PACU. We felt the best option at this point was to proceed with revision surgery for acromion ORIF and hemiarthroplasty as described in the preoperative documentation. Patient was appropriately consented for the operation after discussing the risks and benefits as well as potential complications and alternatives of the operation. Patient was taken to the preoperative area and seen and examined. Consent was obtained. Preoperative interscalene block was placed by anesthesia team. We subsequently took the patient to the operating suite placed in a supine position operating table and anesthetized the patient. She was placed in the beachchair position with all bony prominences well-padded head was in neutral position. Patient was prepped and draped with the left arm draped free. Preoperative antibiotics were given to the patient timeout was performed left side was correct. A magnet was placed sterilely over her defibrillator. At this point the previous deltopectoral incision was utilized we dissected through the skin and subcutaneous tissues and into the deltopectoral interval. The deltoid and pectoralis were mobilized laterally medially. We continued dissect through the interval to the humerus. The subdeltoid space was full of fibrous tissue. Some acromial space and subcoracoid spaces were also significantly adhesed with copious amounts of scar tissue. We developed the required space and self-retaining retractor was placed. At this point we entered the joint via the rotator interval and copious amounts of purulent fluid ran out of the joint into the wound. Cultures of the fluid were obtained and a syringe of the fluid was sent for cell count and differential and fluid glucose. At this point decision was made to remove all components with likely infection stemming from her previous GI infection. The patient had the shoulder and then dislocated the polyethylene was appropriately removed we rongeured some bone from the proximal portion of the humeral component which was soft and appeared infected. The humeral component was easily removed with the broach handle and mallet. At this point fibrous tissue from the around the humerus was sent to microbiology for culture, curette was used to remove the remaining soft tissue from the humerus. We then turned our attention to the glenoid. The Glenosphere was removed as well as the 4 locking screws through the plate baseplate and to the baseplate itself without much difficulty. Once that was removed we were able to irrigate and debride the glenoid. Cultures were obtained from the anterior, superior, posterior capsules and sent for microbiology. We then irrigated the wound with 9 L of normal saline irrigating the glenohumeral joint as well as the humeral shaft. Remainder of all capsular tissue that could be seen was sharply excised and discarded. Once the joint was clean we prepared a antibiotic spacer using 2 g of vancomycin powder and 2 batches of tobramycin cement. This was formed to appropriately fit the humerus and then was subsequently impacted into position. The shoulder was then reduced. We then closed what was left of the subscapularis around the humerus with suture and subsequently closed the wound using 0 PDS suture followed by 2-0 PDS suture followed by celso for the skin. This point a soft sterile dressing was placed patient is placed into a pillow sling. She was then awoken from anesthesia having suffered no complications taken to the PACU in stable condition. PRE-OP/PRE-PROCEDURE DIAGNOSIS: Unstable left reverse shoulder arthroplasty with acromion fracture POST-OP/POST-PROCEDURE DIAGNOSIS: Same as Preop with periprosthetic joint infection Estimated Blood Loss: 100 mls Specimens: (more content not included)... Normal [facility] STAPH AUREUS PCRon 3 S. aureus and MRSA panel AGUILA+probe (Nose) Abnormal Negative [facility] Comment on above: Order Comment: Speci men Type: SWAB OF INTERNAL NOSE Ordering Facility: [facility] Address: [address] [place] [address] Result Comment: Posi tive for Staphylococcus aureus by PCR. Negative for MRSA by PCR Performed By: #### S APCR #### [facility] CLIA [id number] [address] [place] [address] [place] SURGICAL PATHOLOGYon 023 CASE REPORT Normal [facility] Comment on above: Order Comment: Speci men Type: SWAB OF INTERNAL NOSE Ordering Facility: [facility] Address: [address] [place] [address] Result Comment: Surg ica Pathology Report Case: [id number] Authorizing Provider: Gilberto Watson DO Collected: 09/06/2023 04:09 PM Ordering Location: [facility] Received: 09/07/2023 09:01 AM Pathologist: Kal Bey MD Specimen: HARDWARE, Left shoulder hardware, gross only Performed By: #### S APCR #### [facility] CLIA [id number] [address] [place] [address] OF [facility] CLINICAL HISTORY Normal [facility] Comment on above: Order Comment: Speci men Type: SWAB OF INTERNAL NOSE Ordering Facility: [facility] Address: [address] [place] [address] Result Comment: Pre- op diagnosis: Unstable reverse total shoulder arthroplasty (HCC) [T84.028A, Z96.619] Performed By: #### S APCR #### [facility] CLIA [id number] [address] [place] [address] FINAL DIAGNOSIS Normal [facility] Comment on above: Order Comment: Speci men Type: SWAB OF INTERNAL NOSE Ordering Facility: [facility] Address: [address] [place] [address] Result Comment: A. L eft shoulder hardware, gross only: Medical hardware consisting of a metal ball, portion of white plastic, two portions of detached metal and five metal screws with gross features consistent with a shoulder joint prosthesis (gross examination only). Performed By: #### S APCR #### [facility] CLIA [id number] [address] [place] [address] FINAL PERFORMING LAB Normal [facility] Comment on above: Order Comment: Speci men Type: SWAB OF INTERNAL NOSE Ordering Facility: [facility] Address: [address] [place] [address] Result Comment: Diag nostic interpretation performed at [facility], [address] [place] [address] CLIA# [id number] House Wrecker: Helen Mendez M.D. Performed By: #### S APCR #### [facility] CLIA [id number] [address] [place] [address] GROSS DES[address] HARDWARE [facility] Comment on above: Order Comment: Speci men Type: SWAB OF INTERNAL NOSE Ordering Facility: [facility] Address: [address] [place] [address] Result Comment: Rece ived fresh and designated hardware left shoulder is medical hardware grossly consistent with a shoulder prosthesis. The 5 metal screws range in size from 1.7 x 0.5 x 0.5 cm to 3.0 x 0.5 x 0.5 cm. The portion of white plastic is 4.0 x 4.0 x 2.5 cm. The metal ball is 3.0 x 3.0 x 2.5 cm. There are 2 portions of detached metal, 4.6 x 2.5 x 2.5 cm and 13.1 x 3.7 x 3.7 cm. No tissue is identified. Gross only. [place] [address] CLIA#[id number] [facility] 09/07/23 9:32 AM Performed By: #### S APCR #### [facility] CLIA [id number] [address] [place] [address] MICROSCOPIC DESCRIPTION Gross examination only. [facility] Comment on above: Order Comment: Speci men Type: SWAB OF INTERNAL NOSE Ordering Facility: [facility] Address: [address] [place] [address] Performed By: #### S APCR #### [facility] CLIA [id number] [address] [address] [place] XR SHOULDER SPECIFY 1V LTon 09-06-2023 XR SHOULDER SPECIFY 1V LT * * *Final Report* * * DATE OF EXAM: Sep 06 2023 7:11PM RHX [id number] - XR SHOULDER SPECIFY 1V LT / PROCEDURE REASON: Postoperative assessment * * * * Physician Interpretation * * * * XR SHOULDER SPECIFY 1V LT Ordering Physician: GILBERTO WATSON LEFT SHOULDER SINGLE VIEW DONE PORTABLY Clinical Statement: Postoperative assessment Comparison 04/12/2023 FINDINGS: Interval removal of left shoulder arthroplasty with placement of antibiotic spacer. There is a nail within the humeral shaft. Skin celso are noted. The alignment is anatomic. No fractures. Soft tissue gas. IMPRESSION: Postoperative changes status post removal of left shoulder arthroplasty with placement of antibiotic spacer. Welfare Administrator: PSCB Transcribe Date/Time: Sep 07 2023 6:36A Dictated by : JOHNATHAN SIERRA MD This examination was interpreted and the report reviewed and electronically signed by: JOHNATHAN SIERRA MD on Sep 07 2023 6:37AM EST [id number] [facility] Final Surgical Pathology Rep [facility] 08-16-2023 Final Surgical Pathology Report . Pathology Reports Accession: Collected Date/Time: Received Date/Time: Pathologist: [id number] 08/14/2023 10:31 EDT 08/15/2023 08:43 EDT MD KIERA LAMB Final Surgical Pathology Report DIAGNOSIS: RIGHT AND LEFT COLON, BIOPSY: - INCREASED INTRAEPITHELIAL LYMPHOCYTES SUGGESTIVE BUT NOT DIAGNOSTIC OF LYMPHOCYTIC COLITIS - MILD NONSPECIFIC INCREASED INTRAEPITHELIAL EOSINOPHILS Comment: CD3 stains the intraepithelial lymphocytes. CLINICAL INFORMATION: DIARRHEA, UNSPECIFIED Procedure: COLONOSCOPY WITH BXS Preoperative diagnosis: DIARRHEA Postoperative diagnosis: DIARRHEA SPECIMEN: A RIGHT AND LEFT COLON - R/O MICROSCOPIC COLITIS GROSS DESCRIPTION: All parts labelled with patient name and [id number] Received in formalin labeled right and left colon are multiple canchola-pink tissue fragments aggregating 1.3 x 0.3 x 0.2 cm. TS-1 Sally Alston, Grossing Technical Writing Lead/Mgr/ Dr. Farhan Spann, Pathologist Dictated by Sally Alston MICROSCOPIC DESCRIPTION: The microscopic examination is performed, except in the case of Gross Only. Electronically Signed by Pathology Report verified by [facility] KIERA LAMB MD Sign out Date: 08/16/2023 15:55 Performing Lab: [facility], [address] [place] [address] Pathology Dept Disclaimer If ancillary studies were utilized, the following Laboratory Developed Test (LDT) disclaimer will apply: Under CLIA requirements, [facility] Pathology Laboratory is qualified to perform high complexity testing. For all ancillary stains, positive and negative controls stain appropriately. Performance characteristics of immunohistochemical and chromogenic in-situ hybridization tests have been determined by [facility] Pathology Laboratory. These tests are used for clinical purposes, They should not be regarded as investigational or for research. Normal [facility] ([place]) Basic metabolic 1998 panelon 08-08-2023 Anion gap [Moles/Vol] 13 mmol/L 3 - 13 mmol/L [facility] Calcium [Mass/Vol] 9.2 mg/dL 8.4 - 10. 4 mg/dL [facility] Chloride [Moles/Vol] 99 mmol/L 98 - 10 7 mmol/L [facility] CO2 [Moles/Vol] 23 mmol/L 22 - 30 mmol/L [facility] Creatinine [Mass/Vol] 1.20 mg/dL High 0.52 - 1.04 mg/dL [facility] GFR/1.73 sq M.predicted MDRD (S/P/Bld) [Vol rate/Area] 45.6 mL/min/{1.73_m2} Low - PINF [facility] Comment on above: Calculation based on the Chronic Kidney Disease Epidemiology Collaboration (CKD-EPI) equation refit without adjustment for race Glucose [Mass/Vol] 131 mg/dL High 70 - 100 mg/dL [facility] Potassium [Moles/Vol] 4.2 mmol/L 3.5 - 5.1 mmol/L [facility] Sodium [Moles/Vol] 136 mmol/L 135 - 145 mmol/L [facility] Urea nitrogen [Mass/Vol] 29 mg/dL High 7 - 17 mg/dL [facility] Digoxin levelon 08-08-2023 Digoxin [Mass/Vol] ng/mL Low 0.8 - 2.0 ng/mL [facility] Natriuretic peptide B [Mass/ Vol]on 08-08-2023 Interpretation and review of laboratory results Abnormal [facility] Natriuretic peptide B (Bld) [Mass/Vol] 1190 pg/mL High <20 - 300 [facility] No Panel Informationon 08-08 Interpretation and review of laboratory results Abnormal [facility] XR Pelvis and Hip - right AP and Lateral frogon 06-05-2023 IMPRESSION: No acute osseous abnormality Welfare Administrator: KRISS Transcribe Date/Time: Jun 05 2023 1:26P Dictated by : KESHAWN ASHFORD MD This examination was interpreted and the report reviewed and electronically signed by: KESHAWN ASHFORD MD on Jun 05 2023 1:27PM [facility] DIVISION OF RADIOLOGY * * *Final Report* * * DATE OF EXAM: Jun 05 2023 1:25PM WOX [id number] - XR HIP 3V PELV+ AP/LAT RT / PROCEDURE REASON: Right hip pain * * * * Physician Interpretation * * * * EXAMINATION: XR HIP 3V PELV+ AP/LAT RT CLINICAL HISTORY: Right hip pain Technique: XR HIP 3V PELV+ AP/LAT RT -- RIGHT with 3 views on 3 images Comparison: None RESULT: No acute fracture or hip dislocation. 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 DIVISION OF RADIOLOGY Provider, [facility] - 06/05/2023 * * *Final Report* * * DATE OF EXAM: Jun 05 2023 1:25PM [id number] - XR HIP 3V PELV+ AP/LAT RT / PROCEDURE REASON: Right hip pain * * * * Physician Interpretation * * * * EXAMINATION: XR HIP 3V PELV+ AP/LAT RT CLINICAL HISTORY: Right hip pain Technique: XR HIP 3V PELV+ AP/LAT RT -- RIGHT with 3 views on 3 images Comparison: None RESULT: No acute fracture or hip dislocation. 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 IMPRESSION IMPRESSION: No acute osseous abnormality Welfare Administrator: PSC Transcribe Date/Time: Jun 05 2023 1:26P Dictated by : KESHAWN ASHFORD MD This examination was interpreted and the report reviewed and electronically signed by: KESHAWN ASHFORD MD on Jun 05 2023 1:27PM EST [facility] Radiology Study observation (narrative) [facility] XR Pelvis and Hip - right AP and Lateral frogOrdered By: Ccf Provider on 06-05-2023 [facility] ACTIVATED PTTon 03-16-2023 aPTT Coag (PPP) [Time] 26.6 s 23.0 - 32.4 sec [facility] Basic metabolic 2000 panelon 03-16-2023 Anion gap [Moles/Vol] 8 mmol/L 5 - 16 mmol/L [facility] Calcium [Mass/Vol] 9.4 mg/dL 8.5 - 10. 5 mg/dL [facility] Chloride [Moles/Vol] 105 mmol/L 98 - 10 7 mmol/L [facility] CO2 [Moles/Vol] 26 mmol/L 21 - 32 mmol/L [facility] Creatinine [Mass/Vol] 1.09 mg/dL High 0.51 - 0.95 mg/dL [facility] Estimated Glomerular Filtration Rate 51 mL/min/1.73m Low >=60 mL/min/1.73m [facility] Glucose [Mass/Vol] 71 mg/dL 70 - 100 mg/dL [facility] Potassium [Moles/Vol] 4.5 mmol/L 3.5 - 5.1 mmol/L [facility] Sodium [Moles/Vol] 139 mmol/L 136 - 145 mmol/L [facility] Urea nitrogen [Mass/Vol] 31 mg/dL High 7 - 26 mg/dL [facility] CBC W Auto Differential pane l (Bld)on 03-16-2023 Basophils (Bld) [#/Vol] 0.05 10*3/uL <0.11 k/uL [facility] Basophils/100 WBC (Bld) 0.5 % [facility] Differential cell count method Nom (Bld) Auto [facility] Eosinophils (Bld) [#/Vol] 0.40 10*3/uL <0.46 k/uL [facility] Eosinophils/100 WBC (Bld) 4.2 % [facility] Erythrocyte distribution width (RBC) [Ratio] 14.5 % 11.5 - 15.0 % [facility] Hematocrit (Bld) [Volume fraction] 38.0 % 36.0 - 46.0 % [facility] Hemoglobin (Bld) [Mass/Vol] 12.2 g/dL 11.5 - 15.5 g/dL [facility] Immature granulocytes (Bld) [#/Vol] 0.05 10*3/uL <0.10 k/uL [facility] Immature granulocytes/100 WBC (Bld) 0.5 % [facility] Lymphocytes (Bld) [#/Vol] 2.43 10*3/uL 1.00 - 4.00 k/uL [facility] Lymphocytes/100 WBC (Bld) 25.7 % [facility] MCH (RBC) [Entitic mass] 31.1 pg 26.0 - 34.0 pg [facility] MCHC (RBC) [Mass/Vol] 32.1 g/dL 30.5 - 36.0 g/dL [facility] MCV (RBC) [Entitic vol] 96.9 fL 80.0 - 100.0 fL [facility] Monocytes (Bld) [#/Vol] 1.13 10*3/uL High <0.87 k/uL [facility] Monocytes/100 WBC (Bld) 12.0 % [facility] Neutrophils (Bld) [#/Vol] 5.39 10*3/uL 1.45 - 7.50 k/uL [facility] Neutrophils/100 WBC (Bld) 57.1 % [facility] Nucleated RBC (Bld) [#/Vol] <0.01 k/uL [facility] Nucleated RBC/100 WBC (Bld) [Ratio] 0.0 /100 WBC [facility] Platelet mean volume (Bld) [Entitic vol] 8.5 fL Low 9.0 - 12.7 fL [facility] Platelets (Bld) [#/Vol] 222 10*3/uL 150 - 400 k/uL [facility] RBC (Bld) [#/Vol] 3.92 10*6/uL 3.90 - 5.2 0 m/uL [facility] WBC (Bld) [#/Vol] 9.45 10*3/uL 3.70 - 11. 00 k/uL [facility] FERRITIN BLDon 03-16-2023 Ferritin [Mass/Vol] 105.6 ng/mL 8.0 - 30 7.0 ng/mL [facility] [facility] HbA1c (Bld)on 03-16-2023 Average glucose Estimated from glycated hemoglobin (Bld) [Mass/Vol] 126 mg/dL [facility] HbA1c (Bld) [Mass fraction] 6.0 % 4.3 - 6.0 % [facility] Iron and Iron binding capaci ty panelon 03-16-2023 Iron [Mass/Vol] 89 ug/dL 50 - 170 ug/dL [facility] Iron binding capacity [Mass/Vol] 398 ug/dL 221 - 481 ug/dL [facility] Iron/TIBC [Molar ratio] 22.4 % 22.0 - 44.0 % [facility] NT PRO BNPon 03-16-2023 Natriuretic peptide.B prohormone N-Terminal [Mass/Vol] 547 pg/mL High <450 pg/mL [facility] PT panel Coag (PPP)on 2022 INR Coag (PPP) [Relative time] 1.0 {INR} 0.9 - 1.3 [facility] PT Coag (PPP) [Time] 10.3 s 9.7 - 1 3.0 sec [facility] STAPH AUREUS PCRon S. aureus and MRSA panel AGUILA+probe (Nose) Positive Abnormal Negative [facility] S. aureus and MRSA panel AGUILA+probe (Nose) Negative Negative [facility] TYPE AND SCREEN,30 DAYon ABO B [facility] HIstorical Ab Scr Status Negative [facility] Rh Nom (Bld) Negative [facility] Basic metabolic 2000 panelon 10-04-2022 Anion gap [Moles/Vol] 9 mmol/L 5 - 16 mmol/L [facility] Calcium [Mass/Vol] 9.3 mg/dL 8.5 - 10. 5 mg/dL [facility] Chloride [Moles/Vol] 105 mmol/L 98 - 10 7 mmol/L [facility] CO2 [Moles/Vol] 27 mmol/L 21 - 32 mmol/L [facility] Creatinine [Mass/Vol] 1.22 mg/dL High 0.51 - 0.95 mg/dL [facility] Estimated Glomerular Filtration Rate 45 mL/min/1.73m Low >=60 mL/min/1.73m [facility] Glucose [Mass/Vol] 104 mg/dL High 70 - 100 mg/dL [facility] Potassium [Moles/Vol] 4.2 mmol/L 3.5 - 5.1 mmol/L [facility] Sodium [Moles/Vol] 141 mmol/L 136 - 145 mmol/L [facility] Urea nitrogen [Mass/Vol] 31 mg/dL High 7 - 26 mg/dL [facility] CBC W Auto Differential pane l (Bld)on 10-04-2022 Basophils (Bld) [#/Vol] 0.04 10*3/uL <0.11 k/uL [facility] Basophils/100 WBC (Bld) 0.4 % [facility] Differential cell count method Nom (Bld) Auto [facility] Eosinophils (Bld) [#/Vol] 0.40 10*3/uL <0.46 k/uL [facility] Eosinophils/100 WBC (Bld) 4.3 % [facility] Erythrocyte distribution width (RBC) [Ratio] 13.4 % 11.5 - 15.0 % [facility] Hematocrit (Bld) [Volume fraction] 37.3 % 36.0 - 46.0 % [facility] Hemoglobin (Bld) [Mass/Vol] 12.1 g/dL 11.5 - 15.5 g/dL [facility] Immature granulocytes (Bld) [#/Vol] 0.04 10*3/uL <0.10 k/uL [facility] Immature granulocytes/100 WBC (Bld) 0.4 % [facility] Lymphocytes (Bld) [#/Vol] 2.63 10*3/uL 1.00 - 4.00 k/uL [facility] Lymphocytes/100 WBC (Bld) 28.0 % [facility] MCH (RBC) [Entitic mass] 32.4 pg 26.0 - 34.0 pg [facility] MCHC (RBC) [Mass/Vol] 32.4 g/dL 30.5 - 36.0 g/dL [facility] MCV (RBC) [Entitic vol] 100.0 fL 80.0 - 100.0 fL [facility] Monocytes (Bld) [#/Vol] 1.01 10*3/uL High <0.87 k/uL [facility] Monocytes/100 WBC (Bld) 10.7 % [facility] Neutrophils (Bld) [#/Vol] 5.28 10*3/uL 1.45 - 7.50 k/uL [facility] Neutrophils/100 WBC (Bld) 56.2 % [facility] Nucleated RBC (Bld) [#/Vol] <0.01 k/uL [facility] Nucleated RBC/100 WBC (Bld) [Ratio] 0.0 /100 WBC [facility] Platelet mean volume (Bld) [Entitic vol] 9.0 fL 9.0 - 12.7 fL [facility] Platelets (Bld) [#/Vol] 248 10*3/uL 150 - 400 k/uL [facility] RBC (Bld) [#/Vol] 3.73 10*6/uL Low 3.90 - 5.2 0 m/uL [facility] WBC (Bld) [#/Vol] 9.40 10*3/uL 3.70 - 11. 00 k/uL [facility] FERRITIN BLDon 10-04-2022 Ferritin [Mass/Vol] 68.4 ng/mL 8.0 - 30 7.0 ng/mL [facility] HbA1c (Bld)on 10-04-2022 Average glucose Estimated from glycated hemoglobin (Bld) [Mass/Vol] 131 mg/dL [facility] HbA1c (Bld) [Mass fraction] 6.2 % High 4.3 - 6.0 % [facility] Iron and Iron binding capaci ty panelon 10-04-2022 Iron [Mass/Vol] 76 ug/dL 50 - 170 ug/dL [facility] Iron binding capacity [Mass/Vol] 374 ug/dL 221 - 481 ug/dL [facility] Iron/TIBC [Molar ratio] 20.3 % Low 22.0 - 44.0 % [facility] STAPH AUREUS PCRon S. aureus and MRSA panel AGUILA+probe (Nose) Positive Abnormal Negative [facility] S. aureus and MRSA panel AGUILA+probe (Nose) Negative Negative [facility] TYPE AND SCREEN,30 DAYon ABO B [facility] HIstorical Ab Scr Status Negative [facility] Rh Nom (Bld) Negative [facility] LABORATORYOrdered By: Aleja Sofia on 01-01-2022 Magnesium [Mass/Vol] 2.1 mg/dL Invalid Interpretation Code 1.8 - 2.4 mg/dL AO Chemistry S ANES POSTPROC EVALon 020 ANES POSTPROC EVAL HNO ID: [id number] Author: Stevenson Atkins Service: ? Author Type: Anesthesiologist Type: Anesthesia Postprocedure Evaluation Filed: 06/29/2020 1:49 PM Note Text: POST ANESTHESIA EVALUATION NOTE : 1940 Procedure Summary Date: 06/29/20 Room / [facility] Anesthesia Start: 1054 Anesthesia Stop: 111 Procedure: EGD WITH BIOPSY (N/A ) Diagnosis: History of Smith's esophagus Surgeons: Kiera Lofton Responsible Provider: Stevenson Atkins Anesthesia Type: MAC ASA Status: 3 Anesthesia Type: MAC Last vitals Vitals Value Taken Time BP 136/63 06/29/20 1201 36 T 06/29/20 1348 Pulse 68 06/29/20 1201 Resp 18 06/29/20 1201 SpO2 96 % 06/29/20 1201 Vitals shown include unvalidated device data. Post Anesthesia Patient Status Patient Evaluation: PACU. PACU/ICU Patient Condition: stable. Anticipated Disposition: phase 2 then home. Neurological Status: aware and responsive. Pulmonary Status: breathing comfortably on room air Airway Control: returned to baseline unsupported. Cardiovascular Status: stable. Pain Management: clinically adequate - multimodal analgesia pain management approach Postoperative Hydration: acceptable. Intraoperative Events: no significant anesthesia events Post Operative Nausea/Vomiting Status: Anesthetic Observations: no significant anesthetic observations Recommendation: continue current plan of care. SIGNATURE: Stevenson Atkins MD PATIENT NAME: Desirae Archuleta DATE: June 29, 2020 TIME: 1:48 PM CSN: [id number] [facility] ANES PRE-OPon 06-29-2020 ANES PRE-OP HNO ID: [id number] Author: Stevenson Atkins Service: ? Author Type: Anesthesiologist Type: Anesthesia Preprocedure Evaluation Filed: 06/29/2020 10:24 AM Note Text: ANESTHESIOLOGY DAY OF SURGERY NOTE : 1940 Procedure(s) (LRB): EGD (N/A) Surgeon(s): Kiera Lofton Estimated body mass index is 35.12 kg/m? as calculated from the following: Height as of 06/24/20: 157.5 cm (5' 2 ). Weight as of 06/24/20: 87.1 kg (192 lb). 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 Tracheostomy tube not present Mallampati: II. TM distance: >3 FB. Neck ROM: full ROM without neurological symptoms. Mouth opening: adequate. Additional exam findings: no II - ANESTHESIA PLAN ASA Score: 3 Anesthetic Plan: MAC NPO Status: adequate Monitoring plan: standard ASA. Postoperative analgesic plan: parenteral or oral opioids and multimodal analgesia. Anesthetic Risks, Benefits, Alternatives, Personnel Discussed. Consent obtained from: patient. Patient / Surrogate agrees to blood products: blood products not planned Significant changes in the patient condition since the History and Physical, not otherwise documented in primary service progress note: no. No vitals data found for the desired time range. Facility-Administered Medications as of 06/29/2020 Medication Dose Route Frequency - lidocaine 10 mg/mL (1 %) 1-2 mg injection (XYLOCAINE) 0.1-0.2 mL INTRADERMAL PRN - lactated ringers infusion 50 mL/hr INTRAVENOUS CONTINUOUS Outpatient Medications as of 06/29/2020 Medication Sig - colestipol (COLESTID) 1 gram tablet Take 1 tablet by mouth once daily. - levothyroxine (SYNTHROID) 88 mcg tablet TAKE ONE TABLET BY MOUTH ONCE DAILY ON EMPTY STOMACH - allopurinol (ZYLOPRIM) 300 mg tablet TAKE ONE TABLET BY MOUTH ONCE DAILY FOR GOUT - Omeprazole 40 mg capsule Take 1 capsule by mouth once daily. - triamcinolone (KENALOG IN ORABASE) 0.1 % paste 1 application by DENTAL route twice daily. - Xdwnt-7-RPC-EPA-Fish Oil (FISH OIL) 1,000 mg (120 mg-180 mg) cap Take 2 g by mouth twice daily. - carvedilol (COREG) 25 mg tablet Take 1 tablet by mouth twice daily with meals. Dr. Escudero - simvastatin (ZOCOR) 40 mg tablet Take 1 tablet by mouth daily at bedtime. - ramipril (ALTACE) 5 mg capsule Take 2 capsules by mouth once daily. (Patient taking differently: Take 5 mg by mouth once daily. ) - clobetasol (TEMOVATE) 0.05 % cream Apply at sparingly to perineum up to twice daily for no more than 2 weeks - polyethylene glycol 3350 (MIRALAX) 17 gram/dose powder (ONE SCOOP) IN 8 OZ OF WATER DAILY UNTIL STOOLS ARE REGULAR UP TO TWO(2) WEEKS - letrozole (FEMARA) 2.5 mg tablet Take 2.5 mg by mouth once daily. - spironolactone (ALDACTONE) 25 mg tablet Take 12.5 mg by mouth once daily. - furosemide 40 mg tablet Take 40 mg by mouth twice daily. - aspirin(ECOTRIN LOW STRENGTH 81 MG TAB) Take one(1) tablet daily. - Pkijtyrnijzvf-Pv-Mxtx- Minerals (ONE-A-DAY WOMENS FORMULA) 27-0.4 mg ORAL Tab Take one(1) tablet daily. - CALCIUM 600 WITH VITAMIN D3 600 MG-200 UNIT TAB Take one(1) tablet daily. I have interviewed and examined the patient. I have reviewed the medical record and/or the pre-anesthesia evaluation, pertinent labs, and test results. This contains updated information obtained within 48 hours of Surgery/Procedure. SIGNATURE: Stevenson Atkins MD PATIENT NAME: Desirae Archuleta DATE: June 29, 2020 TIME: 10:23 AM CSN: [id number] Normal [facility] HISTORY PHYSICALon 0 HISTORY PHYSICAL HNO ID: [id number] Author: Kiera Lofton Service: General Surgery Author Type: Physician Type: HANDP Filed: 06/29/2020 10:45 AM Note Text: Progress Notes Leonor Vergara (Nurse Practitioner) - - Gastroenterology Expand AllCollapse All This Team Access Model visit is a phone encounter.? It required patient-provider interaction for the medical decision making as documented below. The patient is identified by name and birthday. Patient location: [place] ? The patient is aware that I am not fully able to assess symptoms and do a full physical exam including vital signs in the office at this time.The patient consented to this type of encounter since it was performed by phone / virtually due to the COVID-19 epidemic as an effort to protect patients and minimize exposure. ? Desirae Archuleta a 79 year old female who is a follow up regarding loose stools. Stool studies were all negative. I last saw her for this concern on 01/06/20. That note has been reviewed. We have had multiple phone encounters since. ? She is due for surveillance EGD due to Smith's esophagus. ? She?also?has a history of nonischemic cardiomyopathy, ventricular tachycardia status post ICD implantation for primary prevention, hypertension?and?hyper lipidemia, for which she sees Dr. Moctezuma, ?breast cancer, arthritis and hypothyroid. ? ? Patient update: The patient reports that she stopping turmeric she is a lot better . No longer with the hiccups, daily diarrhea or nausea. She hasn't needed Imodium. She has occasional loose stool, but only once or two when she does. ? Her last EGD was 04/23/18 due to a history of Smith's. The esophagus was reported to appear normal. She had gastritis with intestinal metaplasia. She'll be due for surveillance in April. Taking omeprazole daily and denies any upper GI complaints. ? ? REVIEW OF SYSTEMS: GENERAL: No weight loss, malaise or fevers RESPIRATORY: No asthma or COPD.No new or worsening respiratory issues CARDIOVASCULAR: ICD. HTN. History of CHF - no recent issues. No chest pain No MADERA. GI: The patient states that her appetite has been good. She does get hungry. There has been no further nausea, no vomiting. She denies dysphagia and denies odynophagia. There has not been indigestion or heartburn. There has not been regurgitation. Bowel habits as reported above. The patient denies rectal bleeding. There has not been melena. No new or worsening abdominal pain. 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 MUSCULOSKELETAL: arthritis. Nothing new or worsening. ENDO: hypothyroid. No diabetes All other reviewed and negative other than HPI. ? ? PAST MEDICAL HISTORY PAST MEDICAL HISTORY Diagnosis Date - Breast cancer (HCC) 05/16/2014 - Cervical arthritis 08/19/2017 - CHF (congestive heart failure) (HCC) 02/14/2011 - Diverticulosis of colon (without mention of hemorrhage) ? - Essential hypertension, benign ? - Female stress incontinence ? - History of breast cancer 07/09/2012 ? 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 - Lumbar disc disease with radiculopathy 04/07/2014 - Malignant neoplasm of breast (female), unspecified site ? - Neuralgia, neuritis, and radiculitis, unspecified ? - Nonischemic cardiomyopathy (HCC) 07/24/2014 - Osteoarthritis of knee 09/06/2010 - Unspecified hypothyroidism ? - Vitamin D deficiency 09/06/2010 ? ? PAST SURGICAL HISTORY PAST SURGICAL HISTORY Procedure Laterality Date - BX BREAST PERC NEED W/GUID ? 01/30/13 ? U/S needle core bx left axilla - COLONOSCOP W/ OR W/O BRSH SPEC ? 12/06/2007 - COLONOSCOPY W/BIOPSY ? 06/02/16 ? diverticula - EGD ? 06/02/16 ? mild gastritis - EGD ? 04/23/2018 - EXCIS BREAST LESION ? ? - ICD INPLANT ? 08/2014 ? second implant. - LEFT HEART CATH,PERCUTANEOUS ? 08/2014 ? Cardiac cath, L heart - PAST SURGICAL HISTORY OF Right ? ? Skin graft right arm - REMOVAL GALLBLADDER ? ? ? Cholecystectomy - REMOVAL JADA VAD W PORT/PUMP ? 12/22/10 ? Removal right IJ port - REPAIR ROTATOR CUFF,ACUTE Right 2007 ? Rotator cuff repair - REVISE MEDIAN N/CARPAL TUNNEL SURG ? ? - SKIN BX, 1 LESION Left 05/15/2017 ? Shave bx left medial cheek lesion - TOTAL KNEE REPLACEMENT Left ? - TUNNEL VAD W SUB Q PORT >=5 ? 11-11-08 ? RIGHT IJ - US BREAST NEEDLE CORE BIOPSY LT ? 10/03/08 ? UOQ left breast/axilla x 2 - VAGINAL HYSTERECTOMY ? ? ? Hysterectomy, vaginal ? ? FAMILY HISTORY FAMILY HISTORY Problem Relation Age of Onset - Diabetes Mother ? - Hypertension Mother ? - Breast Cancer Mother ? - other (BRAIN ANEURYSM) Mother ? - Diabetes Brother ? - Diabetes Brother ? - Hypertension Brother ? - Hypertension Brother ? - Cancer Son ? ? TESTICULAR ? ? CURRENT MEDICATIONS Current Outpatient Medications Medication Sig Dispense Refill - colestipol (COLESTID) 1 gram tablet Take 1 tablet by mouth once daily. 90 tablet 3 - levothyroxine (SYNTHROID) 88 mcg tablet TAKE ONE TABLET BY MOUTH ONCE DAILY ON EMPTY STOMACH 90 tablet 3 - allopurinol (ZYLOPRIM) 300 mg tablet TAKE ONE TABLET BY MOUTH ONCE DAILY FOR GOUT 90 tablet 3 - Omeprazole 40 mg capsule Take 1 capsule by mouth once daily. 90 capsule 3 - naproxen (NAPROSYN) 500 mg tablet Take 1 tablet by mouth twice daily as needed for Pain. Take with food. 60 tablet 1 - triamcinolone (KENALOG IN ORABASE) 0.1 % paste 1 application by DENTAL route twice daily. 5 g 0 - Tjajt-5-SVV-EPA-Fish Oil (FISH OIL) 1,000 mg (120 mg-180 mg) cap Take 2 g by mouth twice daily. ? ? - carvedilol (COREG) 25 mg tablet Take 1 tablet by mouth twice daily with meals. Dr. Escudero ? ? - simvastatin (ZOCOR) 40 mg tablet Take 1 tablet by mouth daily at bedtime. ? ? - ramipril (ALTACE) 5 mg capsule Take 2 capsules by mouth once daily. (Patient taking differently: Take 5 mg by mouth once daily. ) ? 0 - clobetasol (TEMOVATE) 0.05 % cream Apply at sparingly to perineum up to twice daily for no more than 2 weeks 30 g 0 - polyethylene glycol 3350 (MIRALAX) 17 gram/dose powder (ONE SCOOP) IN 8 OZ OF WATER DAILY UNTIL STOOLS ARE REGULAR UP TO TWO(2) WEEKS 1 Bottle 1 - letrozole (FEMARA) 2.5 mg tablet Take 2.5 mg by mouth once daily. ? ? ? - spironolactone (ALDACTONE) 25 mg tablet Take 12.5 mg by mouth once daily. ? ? - furosemide 40 mg tablet Take 40 mg by mouth twice daily. ? ? ? - aspirin(ECOTRIN LOW STRENGTH 81 MG TAB) Take one(1) tablet daily. ? 0 - Jimmbhaavggnf-Hf-Hweb- Minerals (ONE-A-DAY WOMENS FORMULA) 27-0.4 mg ORAL Tab Take one(1) tablet daily. ? 0 - CALCIUM 600 WITH VITAMIN D3 600 MG-200 UNIT TAB Take one(1) tablet daily. ? 0 ? No current facility-administered medications for this visit. ? ? SOCIAL HISTORY: Unchanged. ? PHYSICAL EXAMINATION: No vitals or PE since telemedicine Alert and pleasant, No apparent distress. Easy respirations. Able to speak in complete sentences. Good judgement. Appropriate answers. ? Impression: functional bowel - s/p cholecystectomy. History of Smith's. ? Plan: Remain off turmeric. Continue colestipol, probiotic, fiber and Imodium as needed. ? She'll be due for EGD. The patient was offered a procedure at a [facility] facility. The patient and I have discussed in detail the risk of exposure to and/or potential harm posed by the COVID-19 virus with having a procedure at this time versus the risk of? delaying the procedure. It is not possible to know either the risk of delaying the procedure or chance of getting an infection with perfect accuracy, but I have explained to the patient the measures that are being taken to minimize any potential risk of infection. A joint decision was made between the patient and me?to proceed at this time with the scheduled procedure. COVID 19 test ordered. ? This encounter was 9 minutes in length. ? Leonor Vergara, KATE FRANCHISE BROKER.FILENET ARCHITECT [facility] PT EDon 06-29-2020 PT ED HNO ID: [id number] Author: Keya EdwardsRn) KATE Anderson Service: ? Author Type: Registered Nurse Type: Patient Education Filed: 06/29/2020 12:33 PM Note Text: POST OP LEARNING RESPONSE INSTRUCTION PROVIDED TO: Patient METHOD OF INSTRUCTION: Individual instruction PATIENT / FAMILY RESPONSE: Verbalizes understanding of: POST-OPERATIVE INSTRUCTIONS-Correct actions to take to reduce postoperative complications FOLLOW-UP PLAN: Complete - No need for follow-up SUPPLEMENTAL MATERIAL: None REFERRAL (RECOMMENDATION): None Electronically Signed By: Keya Anderson RN In Department: [facility] ENDOSCOPY [facility] PT ED HNO ID: [id number] Author: Rina EdwardsRn) KATE Mendoza Service: Nursing Author Type: Registered Nurse Type: Patient Education Filed: 06/29/2020 10:14 AM Note Text: PRE OP LEARNING ASSESSMENT PROCEDURE/SURGERY: GI PROCEDURES: EGD READINESS TO LEARN COGNITIVE ABILITY: Alert and oriented MOTIVATION TO LEARN: Eager FAMILY SUPPORT: High - Very involved in pt care PATIENT LEARNS BEST BY: Verbal Instruction FACTORS AFFECTING LEARNING: None PHYSICAL LIMITATIONS AFFECTING LEARNING: None Electronically Signed By: Rina Mendoza RN In Department: [facility] ENDOSCOPY [facility] SURGICAL PATHOLOGYon 020 SURGICAL PATHOLOGY Specimen originated from [facility] Specimen #: [id number] Submitting Physician: Kiera Lofton M.D. FINAL DIAGNOSIS 1. Mid and distal esophagus, biopsies (A & B) - Fragments of unremarkable squamous mucosa. - No evidence of eosinophilia, intestinal metaplasia or dysplasia. 2. Gastric antrum, biopsy (C) - Reactive gastropathy. MIGDALIA/gladis 06/30/2020 Jose Estrada M.D. (Electronic Signature) _ SPECIMEN SUBMITTED A: MID ESOPHAGUS, BIOPSY B: DISTAL ESOPHAGUS, BIOPSY C: ANTRUM/ GASTRIC, BIOPSY CLINICAL DATA LMP: NA A,B: GASTRITIS C: R/O H PYLORI GROSS DESCRIPTION A. Received in formalin is one piece of canchola, soft tissue measuring 0.2 x 0.2 x 0.1 cm. Totally submitted in one cassette. B. Received in formalin are two pieces of canchola, soft tissue aggregating to 0.5 x 0.2 x 0.2 cm. Totally submitted in one cassette. C. Received in formalin is one piece of canchola, soft tissue measuring 0.3 x 0.2 x 0.2 cm. Totally submitted in one cassette. Gross examination performed at [facility], [address] [place] [address] 06/29/2020 4:30:46 PM Date of Report: 06/30/2020 Date of Procedure: 06/29/2020 Date of Receipt: 06/29/2020 Submitted by: Kiera Lofton M.D. Location: [facility] Diagnostic interpretation performed at [place] [address]. CLIA Number: [id number] [facility] NURSING PROGon 06-25-2020 NURSING PROG HNO ID: [id number] Author: Kenyatta (Rn) KATE Pacheco Service: General Internal Medicine Author Type: Registered Nurse Type: Nursing Progress Note Filed: 06/25/2020 2:23 PM Note Text: PACC Nurse Progress Note History AND Physical: PACC Visit Date: 06/24/2020 Original HANDP Date: N/A ED visit Date: N/A Outside HANDP Scanned Date: N/A Labs Within Last 6 Months: N/A - not indicated Imaging Within Last 12 Months: See chart Cardiac Testing: Device:ICD Pacer/Defib Interrogation Date: 05/13/2020, Comment: scanned in epic 06/24/2020 Last Menstrual Period: LMP Date: N/A Postmenopausal >1yr: Yes, S/P Hysterectomy: N/A BMI Percentile: 35 Risk Assessment: N/A Anesthesia Review: PACC provider notes that she sent e-mail to anesthesia Re presence of ICD Narrative: N/A Pre-op Considerations: -Nonischemic cardiomyopathy Assessment: s/p ICD, implanted 08/22/2014, last check 05/13/2020 with 4.5 years remaining, following Dr. Escudero, [facility] -Chronic anti-coagulation / platelet meds (Aspirin) -Smith esophagus -HTN -HLD Chart Check: COMPLETED Kenyatta Pacheco RN June 25, 2020 2:15 PM [facility] HOSP 05-11-2020 HOSP Patient:Desirae Dyer MRN: Height:5' 2 (1.575 m) Weight:192 lb (87.091 kg) Outpatient Medications as of 06/29/20: colestipol (COLESTID) 1 gram tablet levothyroxine (SYNTHROID) 88 mcg tablet allopurinol (ZYLOPRIM) 300 mg tablet Omeprazole 40 mg capsule Vhaea-4-BHT-EPA-Fish Oil (FISH OIL) 1,000 mg (120 mg-180 mg) cap carvedilol (COREG) 25 mg tablet simvastatin (ZOCOR) 40 mg tablet ramipril (ALTACE) 5 mg capsule clobetasol (TEMOVATE) 0.05 % cream polyethylene glycol 3350 (MIRALAX) 17 gram/dose powder letrozole (FEMARA) 2.5 mg tablet furosemide 40 mg tablet aspirin(ECOTRIN LOW STRENGTH 81 MG TAB) Ggukkiuyawjir-Jh-Uxyr- Minerals (ONE-A-DAY WOMENS FORMULA) 27-0.4 mg ORAL Tab CALCIUM 600 WITH VITAMIN D3 600 MG-200 UNIT TAB Admission/Clinic Administered Medications as of 06/29/20: lidocaine 10 mg/mL (1 %) 1-2 mg injection (XYLOCAINE) lactated ringers infusion Problem List: Essential hypertension, benign [I10] Female stress incontinence [N39.3] Hyperlipidemia LDL goal <130 [E78.5] Hypothyroidism [E03.9] Vitiligo [L80] Brachial neuritis or radiculitis NOS [M54.12] Benign paroxysmal positional vertigo [H81.10] 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] High risk medications (not anticoagulants) long-term use [Z79.899] Tachycardia [R00.0] Osteoarthritis of knee [M17.10] Vitamin D deficiency [E55.9] ER+ (estrogen receptor positive status) [Z17.0] History of breast cancer [Z85.3] Nonischemic cardiomyopathy (HCC) [I42.8] 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] Complete tear of right rotator cuff [M75.121] 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] Cervical arthritis [M47.812] Neck pain [M54.2] Gastritis [K29.70] ICD (implantable cardioverter-defibrill ator) in place [Z95.810] Pelvic pressure in female [R10.2] 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 Leonor Vergara RN FRANCHISE BROKER.FILENET ARCHITECT Progress Notes ([facility]): Brianna Ivey LPN 06/18/2020 11:42 AM Signed Pt has an appt on 06/29/20 for a procedure with Dr. Lofton. Pt has to get Covid testing before appt. Pt reports she does not want to go to [place] and is asking if she can go to [facility]. Please review. Brianna Barry III MD 06/18/2020 12:59 PM Signed Order has been hand written for [facility] Michi Barry III, MD, FAAFP Chinyere Maher CMA, [place] 06/18/2020 3:01 PM Signed Order has been faxed. Patient notified, voiced understanding. Chinyere Maher CMA [facility] Office Visit: Ryan 05-16-20 Dietary management education, guidance, and counseling (procedure) yes Invalid Interpretation Code [facility] Work Phone: [phone] Documentation of current medications (procedure) Done Invalid Interpretation Code [facility] Work Phone: [phone] Protein mass conc Done Invalid Interpretation Code [facility] Work Phone: [phone] Lab Report: CBC W/Diff, Auto - EPLAB Onlyon 01-12-2017 Basophils/100 leukocytes 1.1 % High 0-1 [facility] Work Phone: [phone] Basophils/100 WBC (Bld) 1.1 % High 0-1 [facility] Work Phone: [phone] Eosinophils/100 leukocytes 4.4 % Invalid Interpretation Code 0-5 [facility] Work Phone: [phone] Eosinophils/100 WBC (Bld) 4.4 % 0-5 [facility] Work Phone: [phone] Erythrocyte distribution width Ratio (RBC) 11.8 % 11.6-14.6 [facility] Work Phone: [phone] Erythrocytes (RBC) 3.79 10*6/uL Low 4.2-5.[address] [facility] Work Phone: [phone] Hematocrit (HCT) 34.9 % Low 37-47 [facility] Work Phone: [phone] Hematocrit Volume Fraction (Bld) 34.9 % Low 37-47 [facility] Work Phone: [phone] Hemoglobin mass conc (Bld) 11.8 g/dL Low 12.0-15.0 [facility] Work Phone: [phone] Lymphocytes 2.59 X10 3/UL Invalid Interpretation Code 0.83-4.51 [facility] Work Phone: [phone] Lymphocytes #/vol (Bld) 2.59 X10 3/UL 0.83-4.51 [facility] Work Phone: Lymphocytes/100 leukocytes 30.7 % Invalid Interpretation Code 19-41 [facility] Work Phone: [phone] Lymphocytes/100 WBC (Bld) 30.7 % 19-41 [facility] Work Phone: [phone] MCH 31.1 pg Invalid Interpretation Code 27.0-32.0 [facility] Work Phone: [phone] MCH Entitic mass (RBC) 31.1 pg 27.0-32.0 [facility] Work Phone: [phone] MCHC 33.8 g/dL Invalid Interpretation Code 32-36 [facility] Work Phone: [phone] MCHC mass conc (RBC) 33.8 g/dL 32-[address] [facility] Work Phone: [phone] MCV 92.0 fL Invalid Interpretation Code 81-99 [facility] Work Phone: [phone] MCV Entitic volume (RBC) 92.0 fL 81-99 [facility] Work Phone: [phone] Monocytes/100 leukocytes 8.3 % Invalid Interpretation Code 0-10 [facility] Work Phone: [phone] Monocytes/100 WBC (Bld) 8.3 % 0-10 [facility] Work Phone: [phone] neutrophil count, blood 4.7 X10 3/UL Invalid Interpretation Code 2.0-7.7 [facility] Work Phone: [phone] Neutrophils #/vol (Bld) 4.7 X10 3/UL 2.0-7.7 [facility] Work Phone: [phone] Neutrophils Auto #/vol (Bld) 4.7 X10 3/UL Invalid Interpretation Code 2.0-7.7 [facility] Work Phone: [phone] Neutrophils/100 leukocytes 55.6 % Invalid Interpretation Code 47-70 [facility] Work Phone: [phone] Neutrophils/100 WBC (Bld) 55.6 % 47-70 [facility] Work Phone: [phone] Platelet mean volume Entitic volume (Bld) 5.4 fL Low 6.2-12.0 [facility] Work Phone: [phone] Platelets 229 10*3/mm3 Invalid Interpretation Code 150-450 [facility] Work Phone: [phone] Platelets #/vol (Bld) 229 10*3/mm3 150-450 [facility] Work Phone: [phone] PMV by Darryl 5.4 fL Low 6.2-12.0 [facility] Work Phone: [phone] RBC #/vol (Bld) 3.79 10*6/uL Low 4.2-5.4 [facility] Work Phone: [phone] RDW-CA 11.8 % Invalid Interpretation Code 11.6-14.6 [facility] Work Phone: [phone] WBC #/vol (Bld) 8.4 10*3/uL 4.4-11.0 [facility] Work Phone: [phone] WBC (Leukocytes) 8.4 10*3/uL Invalid Interpretation Code 4.4-11.0 [facility] Work Phone: [phone] Lab Report: Comprehensive [facility] Profilon 01-12-2017 Albumin mass conc 3.4 g/dL Invalid Interpretation Code 3.4-5.0 [facility] Work Phone: [phone] Albumin/Globulin mass ratio 1 {ratio} Invalid Interpretation Code 0.9-2.4 [facility] Work Phone: [phone] Alkaline phosphatase (ALP) 100 U/L Invalid Interpretation Code 45-117 [facility] Work Phone: [phone] ALP enzyme act/vol (Bld) 100 U/L Invalid Interpretation Code 45-117 [facility] Work Phone: [phone] ALT enzyme act/vol 25 U/L Invalid Interpretation Code 12-78 [facility] Work Phone: [phone] Anion gap 11 mmol/L Invalid Interpretation Code 5-15 [facility] Work Phone: [phone] Anion gap 4 molar conc 11 Invalid Interpretation Code 5-15 [facility] Work Phone: [phone] Anion gap molar conc 11 mmol/L 5-[address] [facility] Work Phone: [phone] AST enzyme act/vol 23 U/L Invalid Interpretation Code 15-37 [facility] Work Phone: [phone] Bilirubin mass conc 0.40 mg/dL Invalid Interpretation Code 0.20-1.00 [facility] Work Phone: [phone] Calcium mass conc 8.2 mg/dL Low 8.5-10.1 [facility] Work Phone: [phone] Chloride molar conc 100 mmol/L Invalid Interpretation Code 98-107 [facility] Work Phone: [phone] CO2 26.0 mmol/L Invalid Interpretation Code 21.0-32.0 [facility] Work Phone: [phone] CO2 ppres (BldV) 26.0 mmol/L Invalid Interpretation Code 21.0-32.0 [facility] Work Phone: [phone] Creatinine mass conc 1.05 mg/dL High 0.55-1.02 [employer] Work Phone: [phone] eGFR (non-black) 66 mL/min/{1.73_m2} Invalid Interpretation Code >60 [facility] Work Phone: [phone] EST GFR - AA 66 mL/min Invalid Interpretation Code >60 [facility] Work Phone: [phone] GFR/1.73 sq M predicted among non-blacks MDRD vol rate/area (S/P/Bld) 54 mL/min/{1.73_m2} Low >60 [facility] Work Phone: [phone] Globulin 3.3 g/dL Invalid Interpretation Code 2.3-3.5 [facility] Work Phone: [phone] Globulin mass conc (S) 3.3 g/dL 2.3-3.5 [facility] Work Phone: [phone] Glucose 129 mg/dL High 70-110 [facility] Work Phone: [phone] Glucose mass conc 129 mg/dL High 70-110 [facility] Work Phone: [phone] Potassium molar conc 4.2 mmol/L Invalid Interpretation Code 3.5-5.1 [facility] Work Phone: [phone] Protein mass conc 6.7 g/dL Invalid Interpretation Code 6.4-8.2 [facility] Work Phone: [phone] Sodium molar conc 137 mmol/L Invalid Interpretation Code 136-145 [facility] Work Phone: [phone] Urea nitrogen mass conc 21 mg/dL High 7-18 [facility] Work Phone: [phone] Urea nitrogen/Creatinine mass ratio 20.0 RATIO Invalid Interpretation Code 10-20 [facility] Work Phone: [phone] Lab Report: LDHon 01-12-2017 lactate dehydrogenase - serum 215 U/L Invalid Interpretation Code 84-246 [facility] Work Phone: [phone] LDH 215 U/L Invalid Interpretation Code 84-246 [facility] Work Phone: [phone] Lab Report: Uric Acidon 12-22 Urate mass conc 8.2 mg/dL High 2.6-6.0 [facility] Work Phone: [phone] Office Visit: 4 mo F/Uon Protein mass conc Done [facility] Work Phone: [phone] Chart Maintenanceon 11-17-20 16 Left ventricular Ejection fraction 35 % Invalid Interpretation Code [facility] Work Phone: [phone] Office Visiton 11-17-2016 Tobacco smoking status VTIS Never smoker Invalid Interpretation Code [facility] Work Phone: [phone] Tobacco use [facility] Never smoker Invalid Interpretation Code [facility] Work Phone: [phone] Office Visit: Follow-Up to Jeanie eagle 10-20-2016 Tobacco smoking status NHIS Never Invalid Interpretation Code [facility] Work Phone: [phone] Lab Report: CA 15-3on 2015 CA 15-3 [id number] 28.7 U/mL High 0.0-25.0 [facility] Work Phone: [phone] cancer 15-3 (BR-MA) antigen 28.7 U/mL High 0.0-25.0 [facility] Work Phone: [phone] Lab Report: CA 27.29on 10-03 Cancer Ag 27-29 Ql 23.8 U/mL Invalid Interpretation Code 0.0-38.6 [facility] Work Phone: [phone] Lab Report: Carcinoembryonic Antigenon 10-03-2016 Carcinoembryonic Ag mass conc 2.0 ng/mL Invalid Interpretation Code 0.0-4.7 [facility] Work Phone: [phone] Office Visit: Follow-Up to Jeanie eagle 09-20-2016 MG Breast screening Normal Bilateral Invalid Interpretation Code [facility] Work Phone: [phone] Office Visit: 4 month f/u. P HQ9 Completedon 08-08-2016 Adolescent depression screening assessment Adolescent depression screening assessment Invalid Interpretation Code [facility] Work Phone: [phone] Adult depression screening assessment Adolescent depression screening assessment Invalid Interpretation Code [facility] Work Phone: [phone] PHQ-9 quick depression assessment panel [Reported.PHQ] Adult depression screening assessment Invalid Interpretation Code [facility] Work Phone: [phone] Office Visit: Follow-Up to Jeanie eagle 05-20-2016 Colonoscopy (procedure) Colonoscopy (procedure) Invalid Interpretation Code [facility] Work Phone: [phone] Protein mass conc Colonoscopy (procedure) Invalid Interpretation Code [facility] Work Phone: [phone] Replaced Document: Torie Rose CG Observationson 05-18-2016 EKG QRS axis -5 deg Invalid Interpretation Code [facility] Work Phone: [phone] electrocardiogram interpretation Sinus Rhythm WITHIN NORMAL LIMITS Invalid Interpretation Code [facility] Work Phone: [phone] GE use only - for [employer] import when terms are not otherwise specified 447 ms Invalid Interpretation Code [facility] Work Phone: [phone] Interpretation Sinus Rhythm WITHIN NORMAL LIMITS Invalid Interpretation Code [facility] Work Phone: [phone] P Clayton 51 deg Invalid Interpretation Code [facility] Work Phone: [phone] P wave axis, electrocardiogram 51 deg Invalid Interpretation Code [facility] Work Phone: [phone] NC Interval 170 ms Invalid Interpretation Code [facility] Work Phone: [phone] NC interval, electrocardiogram 170 ms Invalid Interpretation Code [facility] Work Phone: [phone] Pulse (Heart Rate) 78 /min Invalid Interpretation Code [facility] Work Phone: [phone] QRS axis, electrocardiogram -5 deg Invalid Interpretation Code [facility] Work Phone: [phone] QRS Duration 98 ms Invalid Interpretation Code [facility] Work Phone: [phone] QRS duration, electrocardiogram 98 ms Invalid Interpretation Code [facility] Work Phone: [phone] QT Interval new path ms Invalid Interpretation Code [facility] Work Phone: [phone] QT interval, electrocardiogram new path ms Invalid Interpretation Code [facility] Work Phone: [phone] QTc Coleman 447 ms Invalid Interpretation Code [facility] Work Phone: [phone] T Clayton 33 deg Invalid Interpretation Code [facility] Work Phone: [phone] T wave axis, electrocardiogram 33 deg Invalid Interpretation Code [facility] Work Phone: [phone] Lab Report: Magnesiumon - Magnesium mass conc 2.1 mg/dL Invalid Interpretation Code 1.8-2.4 [facility] Work Phone: [phone] Lab Report: BNP,B-Type NATRI URETIC PEPTIDEon 11-17-2015 Natriuretic peptide B mass conc (Bld) 72.4 pg/mL Invalid Interpretation Code 0-100 [facility] Work Phone: [phone] Lab Report: CBC W/Diff, Auto matedon 04-07-2015 Absolute Neut 3.6 X10 3/UL Invalid Interpretation Code 2.0-7.7 [facility] Work Phone: [phone] Absolute Neutrophil count 3.6 X10 3/UL Invalid Interpretation Code 2.0-7.7 [facility] Work Phone: [phone] Erythrocyte distribution width Auto Ratio (RBC) 41.7 fL Invalid Interpretation Code 35.1-43.9 [facility] Work Phone: [phone] Erythrocyte distribution width Ratio (RBC) 41.7 fL 35.1-43.9 [facility] Work Phone: [phone] Immature granulocytes #/vol (Bld) 0.300 % Invalid Interpretation Code 0.0-0.9 [facility] Work Phone: [phone] immature granulocytes, percentage of total cells, blood 0.300 % Invalid Interpretation Code 0.0-0.9 [facility] Work Phone: [phone] Lymphocytes 1.61 X10 3/UL Invalid Interpretation Code 0.83-4.51 [facility] Work Phone: [phone] Lymphocytes #/vol (Bld) 1.61 X10 3/UL 0.83-4.51 [facility] Work Phone: [phone] red blood cell distribution width, size density 41.7 fL Invalid Interpretation Code 35.1-43.9 [facility] Work Phone: [phone] Lab Report: LDHon 04-07-2015 LDH enzyme act/vol 222 U/L Invalid Interpretation Code 87-241 [facility] Work Phone: [phone] Lab Report: Thyroid Stim Hor leif (TSH)on 04-07-2015 Thyrotropin Qn 0.61 u[iU]/mL Invalid Interpretation Code 0.358-3.74 [facility] Work Phone: [phone] Office Visiton 10-30-2014 cardiac risk group C Invalid Interpretation Code [facility] Work Phone: [phone] General cardiovascular disease 10Y risk [#] [place].D'Agostino 5 % Invalid Interpretation Code [facility] Work Phone: [phone] Lab Report: BIDon 10-20-2014 Bilirubin.direct mass conc 0.14 mg/dL Normal 0.00-0.30 [facility] Work Phone: [phone] Lab Report: LIPIDon 10-20-20 14 Cholesterol in HDL mass conc 47 mg/dL Normal [facility] Work Phone: [phone] Cholesterol in LDL mass conc 84 mg/dL Normal 0-130 [facility] Work Phone: [phone] Cholesterol mass conc 154 mg/dL Normal [facility] [employer] Work Phone: [phone] Lipoprotein.pre-beta mass conc 23 mg/dL Normal 5-40 [facility] Work Phone: [phone] Triglyceride mass conc 115 mg/dL Normal 0-199 [facility] Work Phone: [phone] Lab Report: BTNPon 4 Natriuretic peptide B mass conc (Bld) 1144.2 pg/mL High 0-100 [facility] Work Phone: [phone] Lab Report: T4on 07-10-2014 T4 mass conc 10.0 ug/dL Normal 4.8-13.9 [facility] Work Phone: [phone] Replaced Document: Torie Rose CG Observationson 06-13-2014 Pulse (Heart Rate) 459 ms Invalid Interpretation Code [facility] Work Phone: [phone] Clinical Lists Update: Prelo global climate change researcher 02-19-2012 MCHC 34.6 % Invalid Interpretation Code [facility] Work Phone: [phone] MCHC mass conc (RBC) 34.6 % [facility] Work Phone: [phone] Office Visit: Follow-Up to Jeanie eagle 09-20-2011 General categories Cyto stain Interp (Cervical or vaginal smear or scraping) Normal Invalid Interpretation Code [facility] Work Phone: [phone] Vital Signs Date Time Vital Sign Value Performing Clinician Lady johnson 05-08-2024 13:16-0400 Body height 160 cm Sreedhar Moneypenny PA-C Work Phone: [facility] 05-08-2024 13:16-0400 Body mass index (BMI) [Ratio] 32.77 kg/m2 Sreedhar Moneypenny PA-C Work Phone: [facility] 05-08-2024 13:16-0400 Body weight 83.92 kg Sreedhar Moneypenny PA-C Work Phone: [facility] 05-08-2024 13:16-0400 Diastolic blood pressure 68 mm[Hg] Sreedhar Moneypenny PA-C Work Phone: [facility] 05-08-2024 13:16-0400 Heart rate 91 /min Sreedhar Moneypenny PA-C Work Phone: [facility] 05-08-2024 13:16-0400 SaO2% (BldA) [Mass fraction] 95 % Sreedhar Moneypenny PA-C Work Phone: [employer] 05-08-2024 13:16-0400 Systolic blood pressure 132 mm[Hg] Sreedhar Moneypenny PA-C Work Phone: [employer] 12-20-2023 15:38-0500 Body height 160 cm Jeane Campa MD Work Phone: [employer] 12-20-2023 15:38-0500 Body mass index (BMI) [Ratio] 31.53 kg/m2 Jeane Campa MD Work Phone: [employer] 12-20-2023 15:38-0500 Body weight 80.74 kg Jeane Campa MD Work Phone: [employer] 12-20-2023 15:38-0500 Diastolic blood pressure 66 mm[Hg] Jeane Campa MD Work Phone: [employer] 12-20-2023 15:38-0500 Heart rate 88 /min Jeane Campa MD Work Phone: [employer] 12-20-2023 15:38-0500 SaO2% (BldA) [Mass fraction] 94 % Jeane Campa MD Work Phone: [employer] 12-20-2023 15:38-0500 Systolic blood pressure 126 mm[Hg] Jeane Campa MD Work Phone: [facility] [employer] 08-08-2023 14:40-0400 Heart rate 80 /min Sreedhar Moneypenny PA-C Work Phone: [employer] 08-08-2023 14:04-0400 Body height 160 cm Sreedhar Moneypenny PA-C Work Phone: [employer] 08-08-2023 14:04-0400 Body mass index (BMI) [Ratio] 31.25 kg/m2 Sreedhar Moneypenny PA-C Work Phone: [facility] [employer] 08-08-2023 14:04-0400 Body weight 80.02 kg Sreedhar Moneypenny PA-C Work Phone: [facility] [employer] 08-08-2023 14:04-0400 Diastolic blood pressure 50 mm[Hg] Rseedhar Moneypenny PA-C Work Phone: [facility] 08-08-2023 14:04-0400 SaO2% (BldA) [Mass fraction] 95 % Sreedhar Moneypenny PA-C Work Phone: [facility] [employer] 08-08-2023 14:04-0400 Systolic blood pressure 112 mm[Hg] Sreedhar Moneypenny PA-C Work Phone: [facility] 06-04-2023 13:54-0400 Body temperature 98.8 [degF] Krislyn Aberegg PA Work Phone: [facility] 06-04-2023 13:54-0400 Body weight 80.29 kg Krislyn Aberegg PA Work Phone: [facility] 06-04-2023 13:54-0400 Diastolic blood pressure 66 mm[Hg] Krislyn Aberegg PA Work Phone: [facility] 06-04-2023 13:54-0400 Heart rate 87 /min Krislyn Aberegg PA Work Phone: [facility] 06-04-2023 13:54-0400 Respiratory rate 18 /min Krislyn Aberegg PA Work Phone: [facility] 06-04-2023 13:54-0400 SaO2% (BldA) [Mass fraction] 94 % Krislyn Aberegg PA Work Phone: [facility] 06-04-2023 13:54-0400 Systolic blood pressure 122 mm[Hg] Krislyn Aberegg PA Work Phone: [facility] 03-16-2023 09:12-0400 Diastolic blood pressure 55 mm[Hg] Pacc 4 Work Phone: [facility] 03-16-2023 09:12-0400 Systolic blood pressure 113 mm[Hg] Pacc 4 Work Phone: [facility] 03-16-2023 09:11-0400 Body height 157.5 cm Pacc 4 Work Phone: [facility] 03-16-2023 09:11-0400 Body weight 77.56 kg Pacc 4 Work Phone: [facility] 03-16-2023 09:11-0400 Heart rate 82 /min Pacc 4 Work Phone: [facility] 03-16-2023 09:11-0400 Respiratory rate 20 /min Pacc 4 Work Phone: [facility] 03-16-2023 09:11-0400 SaO2% (BldA) [Mass fraction] 97 % Pacc 4 Work Phone: [facility] 10-04-2022 07:59-0500 Body weight 78.56 kg Pacc 1 Work Phone: [facility] 10-04-2022 07:59-0500 Diastolic blood pressure 47 mm[Hg] Pacc 1 Work Phone: [facility] 10-04-2022 07:59-0500 Heart rate 98 /min Pacc 1 Work Phone: [facility] 10-04-2022 07:59-0500 Respiratory rate 18 /min Pacc 1 Work Phone: [facility] 10-04-2022 07:59-0500 SaO2% (BldA) [Mass fraction] 94 % Pacc 1 Work Phone: [facility] 10-04-2022 07:59-0500 Systolic blood pressure 91 mm[Hg] Pacc 1 Work Phone: [facility] 05-16-2017 13:55-0400 BMI (Body Mass Index) 34.52 kg/m2 Angie Perkins [facility] Work Phone: 05-16-2017 13:55-0400 BP Diastolic 68 mm[Hg] [facility] Work Phone: 05-16-2017 13:55-0400 BP Systolic 100 mm[Hg] [facility] Work Phone: 05-16-2017 13:55-0400 Pulse (Heart Rate) 80 /min [facility] Work Phone: 05-16-2017 13:55-[address] [facility] Work Phone: 01-12-2017 13:33-0500 BMI (Body Mass Index) 34.52 kg/m2 [facility] Work Phone: 01-12-2017 13:33-0500 Body Temperature 98.2 [degF] Dee DeFinis [facility] Work Phone: 01-12-2017 13:33-0500 BP Diastolic 63 mm[Hg] Mingoumi DeFinis [facility] Work Phone: 01-12-2017 13:33-0500 BP Systolic 96 mm[Hg] Harumi DeFinis [facility] Work Phone: 01-12-2017 13:33-0500 BSA (Body Surface Area) 1.94 m2 Harumi DeFinis [facility] Work Phone: 01-12-2017 13:33-0500 Height 161.29 cm Harumi DeFinis [facility] Work Phone: 01-12-2017 13:33-0500 Pulse (Heart Rate) 74 /min Harumi DeFinis [facility] Work Phone: 01-12-2017 13:33-0500 Pulse Oximetry 95 % Harumi DeFinis [facility] Work Phone: 01-12-2017 13:33-0500 Respiratory Rate 16 /min Harumi DeFinis [facility] Work Phone: 01-12-2017 13:33-0500 Weight 90 kg Harumi DeFinis [facility] Work Phone: 01-12-2017 13:33-[address] [facility] Work Phone: 11-17-2016 12:58-[address] [facility] Work Phone: 05-18-2016 13:09-0400 Heart rate 78 /min [facility] Work Phone: 06-13-2014 16:00-0400 Pulse Oximetry 95 % [facility] Work Phone: 06-13-2014 15:56-0400 Heart rate [address] [facility] Work Phone: Encounters Encounter Date Encounter Type Care Provider Facility [facility] Start: 08-08-2024 End: 08-08-2024 Lei Campa MD Work Phone: [facility]iology - [place] Comment on above: Chronic HFrEF (heart failure with reduced ejection fraction) ([facility]) Start: 08-01-2024 End: 08-01-2024 Subsequent hospital visit by physician [facility] Work Phone: Radiology Comment on above: Bilateral calf pain [M79.661, M79.662] Start: 08-01-2024 End: 08-01-2024 ambulatory LEROY DIGGS Facility:[facility] Start: 08-01-2024 End: 08-01-2024 Patient encounter procedure Leroy Diggs Work Phone: Podiatry Comment on above: Onychomycosis (Prima ry Dx); Pain in toe of left foot; Pain in toe of right foot; Bilateral calf pain Start: 06-11-2024 End: 06-11-2024 [facility] Start: 05-21-2024 ambulatory GILBERTO WATSON Facility :[id number] Start: 05-21-2024 End: 05-21-2024 Subsequent hospital visit by physician Roxana Kaycee [facility] Comment on above: Acute deep vein thro mbosis (DVT) of left upper extremity, unspecified vein (HCC) [I82.622] Start: 05-08-2024 End: 05-08-2024 ambulatory SREEDHAR HATCH [facility] Start: 05-08-2024 End: 05-08-2024 [facility] Start: 05-08-2024 End: 05-08-2024 Office outpatient visit 25 minutes Sreedhar Meloniethor DALEY Work Phone: [facility] Cardiology Comment on above: Chronic HFrEF (heart failure with reduced ejection fraction) ([facility]) (Primary Dx); Nonrheumatic mitral valve regurgitation; Essential hypertension, benign; ICD (implantable cardioverter-defibrillator) in place Start: 04-18-2024 End: 04-18-2024 ambulatory LEROY DIGGS Facility:[facility] Start: 04-18-2024 End: 04-18-2024 Patient encounter procedure Leroy Diggs Work Phone: Podiatry Comment on above: Onychomycosis (Prima ry Dx); Pain in toe of left foot; Pain in toe of right foot Start: 03-05-2024 Refdavidson Aparicio Work Phone: [facility] Cardiology Comment on above: Chronic HFrEF (heart failure with reduced ejection fraction) ([facility]) Start: 03-04-2024 End: 03-04-2024 ambulatory MARQUIS BRANCH [facility] Start: 02-27-2024 Refdavidson Aparicio Work Phone: [facility] Cardiology Comment on above: Chronic HFrEF (heart failure with reduced ejection fraction) ([facility]) Start: 02-07-2024 Refdavidson Aparicio Work Phone: [facility] Card[facility] Comment on above: Chronic HFrEF (heart failure with reduced ejection fraction) ([facility]) Start: 01-18-2024 End: 01-18-2024 ambulatory LEROY DIGGS Facility:[facility] Start: 01-18-2024 End: 01-18-2024 Patient encounter procedure Leroy Diggs Work Phone: Podiatry Comment on above: Onychomycosis (Prima ry Dx); Pain in toe of left foot; Pain in toe of right foot; Acquired hallux valgus of left foot Start: 01-17-2024 ambulatory Daylin Oquendo RN [facility] Clinical Communication Start: 01-17-2024 Patient encounter procedure Daylin Oquendo RN [facility] Clinical Communication Start: 12-20-2023 End: 12-20-2023 ambulatory JEANE CAMPA [facility] Start: 12-20-2023 End: 12-20-2023 Office outpatient visit 15 minutes Jeane Campa MD Work Phone: [facility] Cardiology Comment on above: Chronic HFrEF (heart failure with reduced ejection fraction) (HCC) (Primary Dx) Start: 11-17-2023 ambulatory [facility] Facility :[id number] Start: 11-17-2023 End: 11-17-2023 Subsequent hospital visit by physician [facility] Work Phone: RADIO CT SCAN [facility] Comment on above: NON DISPLACED FX L Start: 11-07-2023 End: 11-07-2023 ambulatory [facility] Start: 10-18-2023 End: 10-18-2023 ambulatory [facility] Start: 09-18-2023 Telephone encounter Jeane melo MD Work Phone: [facility] Cardiology Comment on above: Other Start: 09-08-2023 Telephone encounter Jeane melo MD Work Phone: [facility] Comment on above: Results Start: 09-06-2023 End: 09-12-2023 Evaluation and management of inpatient [facility] Facility:[id number] Start: 08-25-2023 Refill Jeane cardoza MD Work Phone: [facility] Cardiology Comment on above: Chronic HFrEF (heart failure with reduced ejection fraction) (HCC) Start: 08-14-2023 End: 08-14-[address] HARIS MAHARAJ MD Facility:B Start: 08-08-2023 End: 08-08-2023 Office outpatient visit 40 minutes Sreedhar Hatch PA-C Work Phone: [facility] Comment on above: Chronic HFrEF (heart failure with reduced ejection fraction) (CMS/HCC) (HCC) (Primary Dx); Nonrheumatic mitral valve regurgitation; Essential hypertension, benign Start: 06-05-2023 Telephone encounter Trudy Mo Shantel DELANEY Work Phone: [facility] Comment on above: Results Start: 06-05-2023 End: 06-05-2023 Subsequent hospital visit by physician Felicitas [facility] Work Phone: Radiology Comment on above: Right hip pain [M25. 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) (HCC) (Primary Dx); Preop testing Start: 03-16-2023 End: 03-16-2023 Patient encounter status Pacc 4 Work Phone: Pre Anesthesia Start: 03-09-2023 Telephone encounter Chinyere gutierrez RN Pre Anesthesia Comment on above: pacc hx call Start: 02-27-2023 Telephone encounter Jeane melo MD Work Phone: [facility] Cardiology Comment on above: Cardiac Clearance Start: 10-04-2022 End: 10-04-2022 [facility] Work Phone: [facility] Start: 10-04-2022 End: 10-04-2022 ambulatory Pac 1 Work Phone: Pre Anesthesia Comment on above: Preop cardiovascular exam (Primary Dx); Preop testing Start: 10-04-2022 End: 10-04-2022 Patient encounter status Pacc 1 Work Phone: Pre Anesthesia Start: 10-04-2022 End: 10-04-2022 Subsequent hospital visit by physician Heidi [facility] 2 Work Phone: Radiology CT Scan Comment on above: Primary osteoarthrit is, right shoulder [M19.011] Start: 01-01-2022 End: 01-01-2022 Patient encounter procedure NONE PHYSIC[facility] Procedures Date Procedure Procedure Detail Performing Clinician Start: 08-01-2024 Dup-scan xtr veins complete bilateral study Leroy Diggs Work Phone: Start: 05-21-2024 Dup-scan xtr veins unilateral/limited study Gilberto Watson DO Work Phone: Start: 11-17-2023 Ct upper extremity w/o contrast material Gilberto Watson DO Work Phone: Start: 08-08-2023 Basic metabolic panel calcium total Sreedhar Moneypenny PA-C Work Phone: Start: 08-08-2023 Drug screen quantitative digoxin total Sreedhar Moneypenny PA-C Work Phone: Start: 06-05-2023 Radex hip unilateral with pelvis 2-3 views Adonay WELLER Work Phone: Start: 03-16-2023 Antibody screen Pac 4 Work Phone: Start: 03-16-2023 Antibody screen rbc each serum technique Gilberto Watson DO Work Phone: Start: 04-27-2023 Iadna s aureus amplified probe tq Gilberto Watson DO Work Phone: Start: 03-16-2023 Thromboplastin time partial plasma/whole blood Gilberto Watson DO Work Phone: Start: 10-04-2022 Antibody screen Pacc 1 Work Phone: Start: 10-04-2022 Antibody screen rbc each serum technique Gilberto Watson DO Work Phone: Start: 10-04-2022 Basic metabolic panel calcium total Gilberto Watson DO Work Phone: Start: 10-04-2022 Iadna s aureus amplified probe tq Gilberto Watson DO Work Phone: Start: 08-29-2017 End: 08-31-2017 Interrogation eval remote 90 d 1/2/client partner ld dfb Brenda Schulte PA-C Work Phone: Start: 05-30-2017 End: 05-31-2017 Interrogation eval remote 90 d 1/2/client partner ld dfb Brenda Schulte PA-C Work Phone: Start: 05-30-2017 End: 05-31-2017 Icd device interrogat remote Brenda Schulte PA-C Work Phone: Start: 05-16-2017 End: 05-16-2017 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 Jose Nunez DIRECTOR OF BUSINESS SERVICES Work Phone: Start: 05-16-2017 End: 05-16-2017 Follow Up Appt 6 months Jose Nunez DIRECTOR OF BUSINESS SERVICES Work Phone: Start: 05-16-2017 End: 05-16-2017 Dietary management education, guidance, and counseling Angie Perkins Start: 05-16-2017 End: 05-16-2017 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 Jose Nunez DIRECTOR OF BUSINESS SERVICES Work Phone: Start: 05-16-2017 End: 05-16-2017 Follow Up Appt 6 months Jose Nunez DIRECTOR OF BUSINESS SERVICES Work Phone: Start: 02-21-2017 End: 05-10-2017 Follow Up Appt 3 months Tran Mendiola Start: 02-21-2017 End: 02-21-2017 Interrogation eval remote 90 d 1/2/client partner ld dfb Diaz Escudero MD Start: 02-21-2017 End: 05-10-2017 Pacer Clinic Diaz Escudero MD Start: 02-21-2017 End: 05-10-2017 Follow Up Appt 3 months Tran Mendiola Start: 02-21-2017 End: 02-21-2017 Icd device interrogat remote Diaz Ecsudero MD Start: 02-21-2017 End: 05-10-2017 Pacer Clinic Diaz Escudero MD Start: 11-28-2016 End: 01-12-2017 *CMP Complete Metabolic Panel Viki Joyner Work Phone: Start: 11-28-2016 End: 01-12-2017 Lactate dehydrogenase [Enzymatic activity/volume] in Serum or Plasma Viki Starr Alatran Work Phone: Start: 11-28-2016 End: 01-12-2017 Urate [Mass/volume] in Serum or Plasma Viki Starr Alam Work Phone: Start: 11-28-2016 End: 01-12-2017 *CMP Complete Metabolic Panel Viki Starr Alam Work Phone: Start: 11-28-2016 End: 01-12-2017 Lactate dehydrogenase (LDH) Viki García stein Work Phone: Start: 11-28-2016 End: 01-12-2017 Urate Viki Starr Alam Work Phone: Start: 11-17-2016 End: 11-25-2016 Echocardiography Diaz Escudero MD Start: 11-17-2016 End: 05-10-2017 Follow Up Appt 3 months Tran Mendiola Start: 11-17-2016 End: 11-17-2016 Follow Up Appt 6 months Tran Mendiola Start: 11-17-2016 End: 11-17-2016 CASH Escudero MD Start: 11-17-2016 End: 05-10-2017 Pacer Clinic Diaz Escudero MD Start: 11-17-2016 End: 11-17-2016 Prgrmg eval implantable in prsn dual lead dfb Diaz Escudero MD Start: 11-17-2016 End: 11-25-2016 Echocardiography Diaz Escudero MD Start: 11-17-2016 End: 05-10-2017 Follow Up Appt 3 months Tran Mendiola Start: 11-17-2016 End: 11-17-2016 Follow Up Appt 6 months Tran Mendiola Start: 11-17-2016 End: 11-17-2016 Icd device progr eval, dual Diaz Mclain i, MD Start: 11-17-2016 End: 11-17-2016 MM Diaz Escudero MD Start: 11-17-2016 End: 05-10-2017 Pacer Clinic Diaz Escudero MD Start: 10-20-2016 End: 10-20-2016 Dietary management education, guidance, and counseling Dee Harris Start: 09-29-2016 End: 09-29-2016 *CBC w/Diff - oncology ONLY Annalee cortes FILENET ARCHITECT Work Phone: Start: 09-29-2016 End: 09-29-2016 *CMP Complete Metabolic Panel Annalee Marti FILENET ARCHITECT Work Phone: Start: 09-29-2016 End: 10-03-2016 Cancer Ag 15-3 [Presence] in Serum or Plasma Annalee R Figueroa FILENET ARCHITECT Work Phone: Start: 09-29-2016 End: 10-03-2016 Cancer Ag 27-29 [Presence] in Serum or Plasma Annalee R Figueroa FILENET ARCHITECT Work Phone: Start: 09-29-2016 End: 10-03-2016 Carcinoembryonic Ag [Mass/volume] in Serum or Plasma Annalee R Figueroa FILENET ARCHITECT Work Phone: Start: 09-29-2016 End: 09-29-2016 *CBC w/Diff - oncology ONLY Annalee R Schla bach FILENET ARCHITECT Work Phone: Start: 09-29-2016 End: 09-29-2016 *CMP Complete Metabolic Panel Annalee R Figueroa FILENET ARCHITECT Work Phone: Start: 09-29-2016 End: 10-03-2016 Cancer Ag 15-3 [Presence] in Serum or Plasma Annalee R Figueroa FILENET ARCHITECT Work Phone: Start: 09-29-2016 End: 10-03-2016 Cancer Ag 27-29 [Presence] in Serum or Plasma Annalee R Figueroa FILENET ARCHITECT Work Phone: Start: 09-29-2016 End: 10-03-2016 Carcinoembryonic antigen Annalee R Schlabac h FILENET ARCHITECT Work Phone: Start: 09-08-2016 End: 05-10-2017 Follow Up Appt 3 months Brenda arriola PA-C Work Phone: Start: 09-08-2016 End: 09-09-2016 Interrogation eval remote 90 d 1/2/client partner ld dfb Brenda Schulte PA-C Work Phone: Start: 09-08-2016 End: 05-10-2017 Pacer Clinic Brenda Schulte PA-C Work Phone: Start: 09-08-2016 End: 05-10-2017 Follow Up Appt 3 months Brenda arriola PA-C Work Phone: Start: 09-08-2016 End: 09-09-2016 Icd device interrogat remote Brenda Schulte PA-C Work Phone: Start: 09-08-2016 End: 05-10-2017 Pacer Clinic Brenda Schulte PA-C Work Phone: Start: 06-02-2016 End: 05-10-2017 Follow Up Appt 3 months Tran Mendiola Start: 06-02-2016 End: 06-12-2016 Interrogation eval remote 90 d 11/21/client partner ld dfb Diaz Escudero MD Start: 06-02-2016 End: 05-10-2017 Pacer Clinic Diaz Escudero MD Start: 06-02-2016 End: 05-10-2017 Follow Up Appt 3 months Tran Mendiola Start: 06-02-2016 End: 06-12-2016 Icd device interrogat remote Diaz Escudero MD Start: 06-02-2016 End: 05-10-2017 Pacer Clinic Diaz Escudero MD Start: 05-18-2016 End: 05-18-2016 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 Brenda Schulte PA-C Work Phone: Start: 05-18-2016 End: 05-18-2016 Follow Up Appt 6 months Brenda arriola PA-C Work Phone: Start: 05-18-2016 End: 05-18-2016 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 Brenda Schulte PA-C Work Phone: Start: 05-18-2016 End: 05-18-2016 Follow Up Appt 6 months Brenda arriola PA-C Work Phone: Start: 05-06-2016 Lipid 1996 panel - Serum or Plasma Jeane Campa MD Work Phone: Start: 04-11-2016 End: 04-12-2016 *CMP Complete Metabolic Panel Viki Joyner Work Phone: Start: 04-11-2016 End: 04-12-2016 Lactate dehydrogenase [Enzymatic activity/volume] in Serum or Plasma Viki Joyner Work Phone: Start: 04-11-2016 End: 04-12-2016 Magnesium [Mass/volume] in Serum or Plasma Viki Joyner Work Phone: Start: 04-11-2016 End: 04-12-2016 Urate [Mass/volume] in Serum or Plasma Viki Joyner Work Phone: Start: 04-11-2016 End: 04-12-2016 *CMP Complete Metabolic Panel Viki Joyner Work Phone: Start: 04-11-2016 End: 04-12-2016 Lactate dehydrogenase (LDH) Viki stein Work Phone: Start: 04-11-2016 End: 04-12-2016 Magnesium Viki Joyner Work Phone: Start: 04-11-2016 End: 04-12-2016 Urate Viki Joyner Work Phone: Start: 03-02-2016 End: 05-06-2016 Follow Up Appt 3 months Tran Mendiola Start: 03-02-2016 End: 03-07-2016 Interrogation eval remote 90 d 1/2/client partner ld dfb Diaz Escudero MD Start: 03-02-2016 End: 05-06-2016 Pacer Clinic Diaz Escudero MD Start: 03-02-2016 End: 05-06-2016 Follow Up Appt 3 months Tran Mendiola Start: 03-02-2016 End: 03-07-2016 Icd device interrogat remote Diaz Escudero MD Start: 03-02-2016 End: 05-06-2016 Pacer Clinic Diaz Escudero MD Start: 11-25-2015 End: 05-06-2016 Follow Up Appt 3 months Tran Mendiola Start: 11-25-2015 End: 11-26-2015 Interrogation eval remote 90 d 1/2/client partner ld dfb Diaz Escudero MD Start: 11-25-2015 End: 05-06-2016 Pacer Clinic Diaz Escudero MD Start: 11-25-2015 End: 05-06-2016 Follow Up Appt 3 months Tran Mendiola Start: 11-25-2015 End: 11-26-2015 Icd device interrogat remote Diaz Escudero MD Start: 11-25-2015 End: 05-06-2016 Pacer Clinic Diaz Escudero MD Start: 11-17-2015 End: 11-17-2015 Follow Up Appt 6 months Tran Mendiola Start: 11-17-2015 End: 11-17-2015 CASH Escudero MD Start: 11-17-2015 End: 11-18-2015 Natriuretic peptide B [Mass/volume] in Blood Diaz Escudero MD Start: 11-17-2015 End: 11-18-2015 BNP Diaz Escudero MD Start: 11-17-2015 End: 11-17-2015 Follow Up Appt 6 months Tran Mendiola Start: 11-17-2015 End: 11-17-2015 MMM Diaz Escudero MD Start: 08-18-2015 End: 05-06-2016 Follow Up Appt 3 months Tran Mendiola Start: 08-18-2015 End: 08-18-2015 Interrogation eval remote 90 d 1/2/client partner ld dfb Diaz Escudero MD Start: 08-18-2015 End: 05-06-2016 Pacer Clinic Diaz Escudero MD Start: 08-18-2015 End: 05-06-2016 Follow Up Appt 3 months Tran Mendiola Start: 08-18-2015 End: 08-18-2015 Icd device interrogat remote Diaz Escudero MD Start: 08-18-2015 End: 05-06-2016 Pacer Clinic Diaz Escudero MD Start: 05-07-2015 End: 05-07-2015 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 Brenda Schulte PA-C Work Phone: Start: 05-07-2015 End: 05-08-2015 Documentation of current medications Brenda Schulte PA-C Work Phone: Start: 05-07-2015 End: 05-07-2015 Follow Up Appt 6 months Brenda arriola PA-C Work Phone: Start: 05-07-2015 End: 05-07-2015 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 Brenda Schulte PA-C Work Phone: Start: 05-07-2015 End: 05-08-2015 Documentation of current medications Brenda Schulte PA-C Work Phone: Start: 05-07-2015 End: 05-07-2015 Follow Up Appt 6 months Brenda arriola PA-C Work Phone: Start: 03-31-2015 End: 04-08-2015 *CBC with Differential Viki Joyner Work Phone: Start: 03-31-2015 End: 04-08-2015 *CMP Complete Metabolic Panel Drew Tran Alam Work Phone: Start: 03-31-2015 End: 04-08-2015 Cancer Ag 15-3 [Presence] in Serum or Plasma Drew M Alam Work Phone: Start: 03-31-2015 End: 04-08-2015 Cancer Ag 27-29 [Presence] in Serum or Plasma Drew M Alam Work Phone: Start: 03-31-2015 End: 04-08-2015 Carcinoembryonic Ag [Mass/volume] in Serum or Plasma Drew M Alam Work Phone: Start: 03-31-2015 End: 04-08-2015 Lactate dehydrogenase [Enzymatic activity/volume] in Serum or Plasma Drew M Alam Work Phone: Start: 03-31-2015 End: 04-08-2015 Thyrotropin [Units/volume] in Serum or Plasma Drew M Alam Work Phone: Start: 03-31-2015 End: 04-08-2015 Urate [Mass/volume] in Serum or Plasma Drew M Alam Work Phone: Start: 03-31-2015 End: 04-08-2015 *CBC with Differential Drew M Alam Work Phone: Start: 03-31-2015 End: 04-08-2015 *CMP Complete Metabolic Panel Drew M Alam Work Phone: Start: 03-31-2015 End: 04-08-2015 Cancer Ag 15-3 [Presence] in Serum or Plasma Drew M Alam Work Phone: Start: 03-31-2015 End: 04-08-2015 Cancer Ag 27-29 [Presence] in Serum or Plasma Drew M Alam Work Phone: Start: 03-31-2015 End: 04-08-2015 Carcinoembryonic antigen Drew M Alam Work Phone: Start: 03-31-2015 End: 04-08-2015 Lactate dehydrogenase (LDH) Drew M A stein Work Phone: Start: 03-31-2015 End: 04-08-2015 Thyroid stimulating hormone (TSH) Viki Starr Alam Work Phone: Start: 03-31-2015 End: 04-08-2015 Urate Drew Tran Alam Work Phone: Start: 01-27-2015 End: 01-27-2015 *CBC with Differential Drew M Alam Work Phone: Start: 01-27-2015 End: 01-27-2015 *CMP Complete Metabolic Panel Drew M Alam Work Phone: Start: 01-27-2015 End: 01-27-2015 Lactate dehydrogenase [Enzymatic activity/volume] in Serum or Plasma Drew M Alam Work Phone: Start: 01-27-2015 End: 10-02-2015 Urate [Mass/volume] in Serum or Plasma Drew Tran Alam Work Phone: Start: 01-27-2015 End: 01-27-2015 *CBC with Differential Drew M Alam Work Phone: Start: 01-27-2015 End: 01-27-2015 *CMP Complete Metabolic Panel Drew Tran Alam Work Phone: Start: 01-27-2015 End: 01-27-2015 Lactate dehydrogenase (LDH) Viki Starr A stein Work Phone: Start: 01-27-2015 End: 10-02-2015 Urate Drew M Alam Work Phone: Start: 10-30-2014 End: 04-22-2015 Echocardiography Diaz Escudero MD Start: 10-30-2014 End: 10-30-2014 Follow Up Appt 4 months Tran Mendiola Start: 10-30-2014 End: 10-30-2014 MMM Diaz Escudero MD Start: 10-30-2014 End: 04-22-2015 Echocardiography Diaz Escudero MD Start: 10-30-2014 End: 10-30-2014 Follow Up Appt 4 months Tran Mendiola Start: 10-30-2014 End: 10-30-2014 MMM Diaz Escudero MD Start: 10-20-2014 End: 10-02-2015 *CBC with Differential Drew M Alam Work Phone: Start: 10-20-2014 End: 10-22-2014 *CMP Complete Metabolic Panel Drew M Alam Work Phone: Start: 10-20-2014 End: 10-22-2014 Lactate dehydrogenase [Enzymatic activity/volume] in Serum or Plasma Drew M Alam Work Phone: Start: 10-20-2014 End: 01-27-2015 Urate [Mass/volume] in Serum or Plasma Drew M Alam Work Phone: Start: 10-20-2014 End: 10-02-2015 *CBC with Differential Drew M Alam Work Phone: Start: 10-20-2014 End: 10-22-2014 *CMP Complete Metabolic Panel Drew M Alam Work Phone: Start: 10-20-2014 End: 10-22-2014 Lactate dehydrogenase (LDH) Drew M A stein Work Phone: Start: 10-20-2014 End: 01-27-2015 Urate Drew M Alam Work Phone: Start: 09-20-2014 End: 05-06-2016 *Hepatic Function Panel Tran Mendiola Start: 09-20-2014 End: 05-06-2016 Lipid 1996 panel - Serum or Plasma Diaz Escudero MD Start: 09-20-2014 End: 05-06-2016 *Hepatic Function Panel Tran Mendiola Start: 09-20-2014 End: 05-06-2016 Lipid panel [AGGREGATE] Tran Mendiola Start: 09-08-2014 End: 10-09-2014 *CBC with Differential Drew M Alam Work Phone: Start: 09-08-2014 End: 09-10-2014 *CMP Complete Metabolic Panel Drew M Alam Work Phone: Start: 09-08-2014 End: 09-09-2014 Documentation of current medications Drew M Alam Work Phone: Start: 09-08-2014 End: 09-10-2014 Lactate dehydrogenase [Enzymatic activity/volume] in Serum or Plasma Drew M Alam Work Phone: Start: 09-08-2014 End: 09-10-2014 Urate [Mass/volume] in Serum or Plasma Drew M Alam Work Phone: Start: 09-08-2014 End: 10-09-2014 *CBC with Differential Drew M Alam Work Phone: Start: 09-08-2014 End: 09-10-2014 *CMP Complete Metabolic Panel Drew M Alam Work Phone: Start: 09-08-2014 End: 09-09-2014 Documentation of current medications Drew M Alam Work Phone: Start: 09-08-2014 End: 09-10-2014 Lactate dehydrogenase (LDH) Drew M A stein Work Phone: Start: 09-08-2014 End: 09-10-2014 Urate Drew M Alam Work Phone: Start: 08-14-2014 End: 08-15-2014 *BMP Diaz Escudero MD Start: 08-14-2014 End: 08-15-2014 *MAGDALENE Escudero MD Start: 07-10-2014 End: 07-10-2014 *MAGDALENE Escudero MD Start: 07-10-2014 End: 07-18-2014 24 hour holter monitor Diaz Escudero MD Start: 07-10-2014 End: 07-10-2014 Follow Up Appt 6 weeks Diaz Escudero MD Start: 07-10-2014 End: 07-10-2014 MMTran Escudero MD Start: 07-10-2014 End: 07-10-2014 Natriuretic peptide B [Mass/volume] in Blood Diaz Escudero MD Start: 07-10-2014 End: 07-10-2014 Thyrotropin [Units/volume] in Serum or Plasma Diaz Escudero MD Start: 07-10-2014 End: 07-10-2014 Thyroxine (T4) [Mass/volume] in Serum or Plasma Diaz Escudero MD Start: 07-10-2014 End: 07-10-2014 *MAGDALENE Escudero MD Start: 07-10-2014 End: 07-18-2014 24 hour holter monitor Diaz Escudero MD Start: 07-10-2014 End: 07-10-2014 BNP Diaz Escudero MD Start: 07-10-2014 End: 07-10-2014 Follow Up Appt 6 weeks Diaz Escudero MD Start: 07-10-2014 End: 07-10-2014 MMTran Escudero MD Start: 07-10-2014 End: 07-10-2014 Thyroid stimulating hormone (TSH) Diaz Escudero MD Start: 07-10-2014 End: 07-10-2014 Thyroxine (T4) Diaz Escudero MD Start: 06-13-2014 End: 06-17-2014 Ct thorax w/contrast material Brenda Schulte PA-C Work Phone: Start: 06-13-2014 End: 06-17-2014 Ct thorax w/dye Brenda Schulte PA-C Work Phone: Start: 04-16-2014 End: 04-16-2014 Ct thorax w/contrast material Brenda Schulte PA-C Work Phone: Start: 04-16-2014 End: 04-16-2014 Follow Up Appt 6 months Brenda arriola PA-C Work Phone: Start: 04-16-2014 End: 04-16-2014 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 Brenda Schulte PA-C Work Phone: Start: 04-16-2014 End: 04-16-2014 Follow Up Appt 6 months Brenda arriola PA-C Work Phone: Start: 01-18-2014 End: 04-15-2014 *Hepatic Function Panel Tran Mendiola Start: 01-18-2014 End: 04-15-2014 Lipid 1996 panel - Serum or Plasma Diaz Escudero MD Start: 01-18-2014 End: 04-15-2014 *Hepatic Function Panel Tran Mendiola Start: 01-18-2014 End: 04-15-2014 Lipid panel [AGGREGATE] Tran Mendiola Start: 01-09-2014 End: 01-09-2014 *BMP Diaz Escudero MD Start: 01-09-2014 End: 01-09-2014 CBC W Auto Differential panel - Blood Diaz Escudero MD Start: 01-09-2014 End: 01-20-2014 Echocardiography Diaz Escudero MD Start: 01-09-2014 End: 01-09-2014 Follow Up Appt 3 months Tran Mendiola Start: 01-09-2014 End: 01-09-2014 *BMP Diaz Escudero MD Start: 01-09-2014 End: 01-09-2014 CBC W Auto Differential panel - Blood Diaz Escudero MD Start: 01-09-2014 End: 01-20-2014 Echocardiography Diaz Escudero MD Start: 01-09-2014 End: 01-09-2014 Follow Up Appt 3 months Tran Mendiola Start: 08-01-2013 End: 08-01-2013 Follow Up Appt 6 months Tran Mendiola Start: 08-01-2013 End: 08-01-2013 MMTran Escudero MD Start: 08-01-2013 End: 08-01-2013 Follow Up Appt 6 months Tran Mendiola Start: 08-01-2013 End: 08-01-2013 MMM Diaz Escudero MD Start: 07-24-2013 End: 07-25-2013 *Hepatic Function Panel Evans Brito MD Start: 07-24-2013 End: 07-25-2013 Lipid 1996 panel - Serum or Plasma Evans Brito MD Start: 07-24-2013 End: 07-25-2013 *Hepatic Function Panel Evans Brito MD Start: 07-24-2013 End: 07-25-2013 Lipid panel [AGGREGATE] Evans Brito MD Start: 04-22-2013 End: 04-16-2014 Follow Up Appt 3 months Hernan Mcdowell MD Start: 04-22-2013 End: 04-16-2014 Pacer Clinic Hernan Mcdowell MD Start: 04-22-2013 End: 04-22-2013 Prgrmg eval implantable in prsn dual lead dfb Hernan Mcdowell MD Start: 04-22-2013 End: 04-16-2014 Follow Up Appt 3 months Hernan Mcdowell MD Start: 04-22-2013 End: 04-22-2013 Icd device progr eval, dual Hernan mackey MD Start: 04-22-2013 End: 04-16-2014 Pacer Clinic Hernan Mcdowell MD Start: 01-14-2013 End: 01-14-2013 Prgrmg eval implantable in prsn dual lead dfb Evans Brito MD Start: 01-14-2013 End: 01-14-2013 Follow Up Appt 6 months Evans Brito MD Start: 01-09-2013 End: 01-14-2013 *BMP Evans Brito MD Start: 01-09-2013 End: 01-14-2013 *Hepatic Function Panel Evans Brito MD Start: 01-09-2013 End: 01-14-2013 Lipid 1996 panel - Serum or Plasma Evans Brito MD Start: 01-09-2013 End: 01-14-2013 Magnesium [Mass/volume] in Serum or Plasma Evans Brito MD Start: 01-09-2013 End: 01-14-2013 *BMP Evans Brito MD Start: 01-09-2013 End: 01-14-2013 *Hepatic Function Panel Evans Brito MD Start: 01-09-2013 End: 01-14-2013 Lipid panel [AGGREGATE] Evans Brito MD Start: 01-09-2013 End: 01-14-2013 Magnesium Evans Brito MD Start: 09-13-2012 End: 09-13-2012 Follow Up Appt 4 months Evans Brito MD Start: 09-13-2012 End: 09-13-2012 Follow Up Appt 4 months Evans Brito MD Start: 08-22-2012 End: 09-13-2012 *Hepatic Function Panel Evans Brito MD Start: 08-22-2012 End: 09-13-2012 Lipid 1996 panel - Serum or Plasma Evans Brito MD Start: 08-22-2012 End: 09-13-2012 *Hepatic Function Panel Evans Brito MD Start: 08-22-2012 End: 09-13-2012 Lipid panel [AGGREGATE] Evans Brito MD Start: 05-24-2012 End: 05-24-2012 Follow Up Appt 3 months Evans Brito MD Start: 05-24-2012 End: 05-24-2012 Follow Up Appt 3 months Evans Brito MD Start: 01-26-2012 End: 01-26-2012 Ecg routine ecg w/least 12 lds w/i&r Evans Brito MD Start: 01-26-2012 End: 02-06-2012 Echocardiography Evans Brito MD Start: 01-26-2012 End: 01-26-2012 Follow Up Appt 4 months Evans Brito MD Start: 01-26-2012 End: 02-06-2012 Echocardiography Evans Brito MD Start: 01-26-2012 End: 01-26-2012 Electrocardiogram, complete Evans Brito MD Start: 01-26-2012 End: 01-26-2012 Follow Up Appt 4 months Evans Brito MD Start: 01-24-2012 End: 01-24-2012 *BMP Evans Brito MD Start: 01-24-2012 End: 01-24-2012 *Hepatic Function Panel Evans Brito MD Start: 01-24-2012 End: 01-24-2012 Digoxin [Mass/volume] in Serum or Plasma Evans Brito MD Start: 01-24-2012 End: 01-24-2012 Lipid 1996 panel - Serum or Plasma Evans Brito MD Start: 01-24-2012 End: 01-24-2012 Magnesium [Mass/volume] in Serum or Plasma Evans Brito MD Start: 01-24-2012 End: 01-24-2012 *BMP Evans Brito MD Start: 01-24-2012 End: 01-24-2012 *Hepatic Function Panel Evans Brito MD Start: 01-24-2012 End: 01-24-2012 Digoxin Evans Brito MD Start: 01-24-2012 End: 01-24-2012 Lipid 1996 panel - Serum or Plasma Evans Brito MD Start: 01-24-2012 End: 01-24-2012 Magnesium Evans Brito MD Start: 11-08-2011 End: 11-08-2011 Follow Up Appt 3 months Evans Brito MD Start: 11-08-2011 End: 11-08-2011 Follow Up Appt 3 months Evans Brito MD Start: 04-21-2011 End: 01-09-2014 Implantation of automatic cardiac defibrillator IMPLANTATION OF DEFIBRILLATOR, HX OF Manju Bellamy RN Start: 04-21-2011 End: 01-09-2014 Implantation of automatic cardiac defibrillator IMPLANTATION OF DEFIBRILLATOR, HX OF Dee Harris Plan of Treatment Date Care Activity Detail Author Start: 05-08-2027 Diabetes Screening Diabetes Screening [facility] Start: 12-27-2026 Diabetes Screening Diabetes Screening [facility] Start: 04-13-2026 DIABETES SCREEN DIABETES SCREEN [facility] Start: 03-16-2026 DIABETES SCREEN DIABETES SCREEN [facility] Start: 10-27-2025 DIABETES SCREEN DIABETES SCREEN [facility] Start: 10-04-2025 DIABETES SCREEN DIABETES SCREEN [facility] Start: 05-08-2025 Creatinine measurement Creatinine Level [facility] Start: 05-08-2025 Potassium measurement Potassium Level [facility] Start: 12-27-2024 Creatinine measurement Creatinine Level [facility] Start: 12-27-2024 Potassium measurement Potassium Level [facility] Start: 10-22-2024 End: 10-22-2024 Patient encounter procedure [facility] Medical [facility] Start: 10-22-2024 End: 10-22-2024 Professional / ancillary services management 10/22/2024 12:30 PM EST Ancillary Procedure [facility] Cardiology - [place] [address] [place] [phone] [facility] - [place] Start: 09-10-2024 End: 09-10-2024 Professional / ancillary services management 09/10/2024 3:30 PM EDT Ancillary Procedure [facility] Cardiology - [place] [address] [place] [phone] [facility] - [place] Start: 08-08-2024 Creatinine measurement Creatinine Level [facility] Start: 08-08-2024 Potassium measurement Potassium Level [facility] Start: 07-26-2024 End: 07-26-2024 Patient encounter procedure 07/26/2024 1:40 PM EDT Office Visit Podiatry [address] [place] [id number] Leroy Diggs [address] [facility] [place] [address] 3 month follow up nail care Podiatry Comment on above: 3 month follow up nail care Start: 07-21-2024 COVID-19 Vaccine () COVID-19 Vaccine () [facility] Start: 07-21-2024 Influenza vaccination [facility] Start: 06-11-2024 End: 06-11-2024 Professional / ancillary services management 06/11/2024 4:00 PM EDT Ancillary Procedure [facility] [address] [place] [phone] [facility] Start: 06-04-2024 BP CONTROLLED (<130/80) BP CONTROLLED (<130/80) [facility] Start: 05-09-2024 Creatinine measurement Creatinine Level [facility] Start: 05-09-2024 Potassium measurement Potassium Level [facility] Start: 05-08-2024 End: 05-08-2024 Patient encounter procedure 05/08/2024 1:00 PM EDT Office Visit [facility] [address] [place] [phone] Sreedhar Hatch PA-C [address] [address] [facility] Start: 04-13-2024 HEMOGLOBIN/HEMATOCRIT HEMOGLOBIN/HEMATOCRIT [facility] Start: 04-13-2024 SERUM CREATININE SERUM CREATININE [facility] Start: 03-16-2024 BP CONTROLLED (<130/80) BP CONTROLLED (<130/80) [facility] Start: 03-16-2024 HEMOGLOBIN/HEMATOCRIT HEMOGLOBIN/HEMATOCRIT [facility] Start: 03-16-2024 SERUM CREATININE SERUM CREATININE [facility] Start: 03-04-2024 End: 03-04-2024 Professional / ancillary services management [facility] Start: 12-20-2023 End: 12-18-2024 Basic metabolic 1998 panel - Serum or Plasma Basic metabolic panel Lab Routine Chronic HFrEF (heart failure with reduced ejection fraction) (HCC) Expected: 12/20/2023 (Approximate), Expires: 12/18/2024 [facility] [employer] [facility] Work Phone: Comment on above: Expected: 12/20/2023 (Approximate), Expi res: 12/18/2024 Start: 12-20-2023 End: 12-18-2024 Natriuretic peptide B [Mass/volume] in Blood NT PRO BNP Lab Routine Chronic HFrEF (heart failure with reduced ejection fraction) (HCC) Expected: 12/20/2023 (Approximate), Expires: 12/18/2024 [facility] Comment on above: Expected: 12/20/2023 (Approximate), Expi res: 12/18/2024 Start: 11-20-2023 Advance Directive Discussion Advance Directive Discussion [facility] Start: 11-20-2023 Behavioral Health Screening Behavioral Health Screening [facility] Start: 11-20-2023 Depression Assessment Depression Assessment [facility] Start: 11-20-2023 Medicare Advantage Annual Wellness Visit Medicare Advantage Annual Wellness Visit [facility] Start: 11-08-2023 Creatinine measurement Creatinine Level [facility] Start: 11-08-2023 Potassium measurement Potassium Level [facility] Start: 11-07-2023 End: 11-07-2023 Patient encounter procedure 11/07/2023 1:15 PM EST Office Visit [facility] [address] [place] [phone] Jeane Campa MD [address] [phone] [facility] Start: 11-07-2023 End: 11-07-2023 Professional / ancillary services management 11/07/2023 12:30 PM EST Ancillary Procedure [facility] [address] [place] [phone] [facility] Start: 10-27-2023 HEMOGLOBIN/HEMATOCRIT HEMOGLOBIN/HEMATOCRIT [facility] Start: 10-27-2023 SERUM CREATININE SERUM CREATININE [facility] Start: 10-04-2023 BP CONTROLLED (<130/80) BP CONTROLLED (<130/80) [facility]ic Start: 10-04-2023 HEMOGLOBIN/HEMATOCRIT HEMOGLOBIN/HEMATOCRIT [facility] Start: 10-04-2023 SERUM CREATININE SERUM CREATININE [facility] Start: 09-13-2023 End: 09-13-2023 Professional / ancillary services management 09/13/2023 4:30 PM EDT Ancillary Procedure [facility] [address] [place] [phone] [facility] Start: 09-07-2023 End: 08-08-2025 US Heart Transthoracic Transthoracic echocardiogram (TTE) complete with contrast, bubble, strain, and 3D PRN CV Echocardiography Routine Chronic HFrEF (heart failure with reduced ejection fraction) (CMS/HCC) (HCC) Expected: 09/07/2023 (Approximate), Expires: 08/08/2025 [facility] [employer] Work Phone: Comment on above: Expected: 09/07/2023 (Approximate), Expi res: 08/08/2025 Start: 08-24-2023 End: 08-24-2023 Professional / ancillary services management 08/24/2023 4:30 PM EDT Ancillary Procedure [facility] [address] [place] [phone] [facility] Start: 08-24-2023 End: 08-24-2023 Professional / ancillary services management 08/24/2023 8:30 AM EDT Ancillary Procedure [facility] [address] [place] [phone] [facility] Start: 08-08-2023 End: 08-08-2023 Patient encounter procedure [facility] Start: 07-21-2023 COVID-19 Vaccine () COVID-19 Vaccine () [facility] Start: 07-21-2023 Influenza vaccination [facility] Start: 05-16-2023 End: 05-16-2023 Professional / ancillary services management 05/16/2023 Ancillary Procedure Cardiology [facility] Medical [facility] Start: 11-20-2022 ADVANCE DIRECTIVE DISCUSSION ADVANCE DIRECTIVE DISCUSSION [facility] Start: 11-20-2022 DEPRESSION ASSESSMENT DEPRESSION ASSESSMENT [facility] Start: 12-24-2021 ANNUAL PCP TEAM CHRONIC DISEASE VISIT ANNUAL PCP TEAM CHRONIC DISEASE VISIT [facility] Start: 11-20-2021 ADVANCE DIRECTIVE DISCUSSION ADVANCE DIRECTIVE DISCUSSION [facility] Start: 11-20-2021 DEPRESSION ASSESSMENT DEPRESSION ASSESSMENT [facility] Start: 05-06-2021 COVID-19 Vaccine (3 - Booster) COVID-19 Vaccine (3 - Booster) [facility] Start: 05-06-2021 COVID-19 Vaccine (5 - Booster) COVID-19 Vaccine (5 - Booster) [facility] Start: 05-06-2021 COVID-19 Vaccine (5 - Mixed Product series) COVID-19 Vaccine (5 - Mixed Product series) [facility] Start: 05-06-2021 Lipid panel Lipid Panel [facility] Start: 04-08-2021 COVID-19 VACCINE (3 - Moderna risk series) COVID-19 VACCINE (3 - Moderna risk series) [facility] Start: 09-20-2019 Lipid panel Lipid Panel [facility] Start: 12-05-2017 End: 12-05-2017 Appointment Appointment [facility] Work Phone: Start: 08-29-2017 End: 08-29-2017 Appointment Appointment [facility] Work Phone: Start: 08-29-2017 End: 08-31-2017 Follow Up Appt 3 months Follow Up Appt 3 months [facility] Work Phone: Start: 08-29-2017 End: 08-31-2017 Pacer Clinic Pacer Clinic [facility] Work Phone: Start: 07-13-2017 End: 07-13-2017 Appointment Appointment [facility] Work Phone: Start: 05-30-2017 End: 05-31-2017 Follow Up Appt 3 months Follow Up Appt 3 months [facility] Work Phone: Start: 05-30-2017 End: 05-31-2017 Pacer Clinic Pacer Clinic [facility] Work Phone: Start: 05-30-2017 End: 05-30-2017 Appointment Appointment [facility] Work Phone: Start: 05-30-2017 End: 05-31-2017 Follow Up Appt 3 months Follow Up Appt 3 months [facility] Work Phone: Start: 05-30-2017 End: 05-31-2017 Pacer Clinic Pacer Clinic [facility] Work Phone: Start: 05-16-2017 End: 05-16-2017 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 [employer] [facility] Work Phone: Start: 05-16-2017 End: 05-16-2017 Follow Up Appt 6 months Follow Up Appt 6 months [facility] Work Phone: Start: 05-16-2017 End: 05-16-2017 Appointment Appointment [facility] Work Phone: Start: 05-16-2017 End: 05-16-2017 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 [employer] [facility] Work Phone: Start: 05-16-2017 End: 05-16-2017 Follow Up Appt 6 months Follow Up Appt 6 months [facility] Work Phone: Start: 02-21-2017 End: 05-10-2017 Follow Up Appt 3 months Follow Up Appt 3 months [facility] Work Phone: Start: 02-21-2017 End: 05-10-2017 Pacer Clinic Pacer Clinic [facility] Work Phone: Start: 02-21-2017 End: 05-10-2017 Follow Up Appt 3 months Follow Up Appt 3 months [facility] Work Phone: Start: 02-21-2017 End: 05-10-2017 Pacer Clinic Pacer Clinic [facility] Work Phone: Start: 11-28-2016 End: 08-08-2016 *CBC with Differential *CBC with Differential [facility] Work Phone: Start: 11-28-2016 End: 01-12-2017 *CMP Complete Metabolic Panel *CMP Complete Metabolic Panel [facility] Work Phone: Start: 11-28-2016 End: 01-12-2017 LDH enzyme act/vol *LDH -LDH (Lactate Dehydrogenase) [facility] Work Phone: Start: 11-28-2016 End: 01-12-2017 Urate mass conc *Uric Acid Blood [facility] Work Phone: Start: 11-28-2016 End: 08-08-2016 *CBC with Differential *CBC with Differential [facility] Work Phone: Start: 11-28-2016 End: 01-12-2017 *CMP Complete Metabolic Panel *CMP Complete Metabolic Panel [facility] Work Phone: Start: 11-28-2016 End: 01-12-2017 Lactate dehydrogenase (LDH) *LDH -LDH (Lactate Dehydrogenase) [facility] Work Phone: Start: 11-28-2016 End: 01-12-2017 Urate *Uric Acid Blood [facility] Work Phone: Start: 11-17-2016 End: 11-18-2016 Echocardiography Echocardiogram (complete) [facility] Work Phone: Start: 11-17-2016 End: 05-10-2017 Follow Up Appt 3 months Follow Up Appt 3 months [facility] Work Phone: Start: 11-17-2016 End: 11-17-2016 Follow Up Appt 6 months Follow Up Appt 6 months [facility] Work Phone: Start: 11-17-2016 End: 11-17-2016 MMM MMM [facility] Work Phone: Start: 11-17-2016 End: 05-10-2017 Pacer Clinic Pacer Clinic [facility] Work Phone: Start: 11-17-2016 End: 11-18-2016 Echocardiography Echocardiogram (complete) [facility] Work Phone: Start: 11-17-2016 End: 05-10-2017 Follow Up Appt 3 months Follow Up Appt 3 months [facility] Work Phone: Start: 11-17-2016 End: 11-17-2016 Follow Up Appt 6 months Follow Up Appt 6 months [facility] Work Phone: Start: 11-17-2016 End: 11-17-2016 MMM MMM [facility] Work Phone: Start: 11-17-2016 End: 05-10-2017 Pacer Clinic Pacer Clinic [facility] Work Phone: Start: 10-06-2016 End: 10-06-2016 Bone &/joint imaging whole body NM Bone Scan, Total Body [facility] Work Phone: Start: 10-06-2016 End: 10-06-2016 Ct abdomen & pelvis w/contrast material CT Abdomen and pelvis; with contrast material(s) [facility] Work Phone: Start: 10-06-2016 End: 10-06-2016 Ct thorax w/contrast material CT Chest with Contrast [facility] Work Phone: Start: 10-06-2016 End: 10-06-2016 Bone imaging, whole body NM Bone Scan, Total Body [facility] Work Phone: Start: 10-06-2016 End: 10-06-2016 Ct abdomen&pelvis w/contrast CT Abdomen and pelvis; with contrast material(s) [facility] Work Phone: Start: 10-06-2016 End: 10-06-2016 Ct thorax w/dye CT Chest with Contrast [facility] Work Phone: Start: 09-29-2016 End: 09-29-2016 *CBC w/Diff - oncology ONLY *CBC w/Diff - oncology ONLY [facility] Work Phone: Start: 09-29-2016 End: 09-29-2016 *CMP Complete Metabolic Panel *CMP Complete Metabolic Panel [facility] Work Phone: Start: 09-29-2016 End: 10-03-2016 Cancer Ag 15-3 Ql *CA153 - Cancer Antigen (CA) 15-3 [facility] Work Phone: Start: 09-29-2016 End: 10-03-2016 Cancer Ag 27-29 Ql *CA 27 CA 27-29 [id number] [facility] Work Phone: Start: 09-29-2016 End: 10-03-2016 Carcinoembryonic Ag mass conc *CEA (Carcinoembryonic Ag) [facility] Work Phone: Start: 09-29-2016 End: 09-29-2016 Mammogram, both breasts Mammogram, Diagnostic, both breasts [facility] Work Phone: Start: 09-29-2016 End: 09-29-2016 Us exam, breast(s) US Breast(s) [facility] Work Phone: Start: 09-29-2016 End: 09-29-2016 *CBC w/Diff - oncology ONLY *CBC w/Diff - oncology ONLY [facility] Work Phone: Start: 09-29-2016 End: 09-29-2016 *CMP Complete Metabolic Panel *CMP Complete Metabolic Panel [facility] Work Phone: Start: 09-29-2016 End: 10-03-2016 Cancer Ag 15-3 [Presence] in Serum or Plasma *CA153 - Cancer Antigen (CA) 15-3 [facility] Work Phone: Start: 09-29-2016 End: 10-03-2016 Cancer Ag 27-29 [Presence] in Serum or Plasma *CA 27 CA 27-29 [id number] [facility] Work Phone: Start: 09-29-2016 End: 10-03-2016 Carcinoembryonic antigen *CEA (Carcinoembryonic Ag) [facility] Work Phone: Start: 09-29-2016 End: 09-29-2016 Mammogram, both breasts Mammogram, Diagnostic, both breasts [facility] Work Phone: Start: 09-29-2016 End: 09-29-2016 Us exam, breast(s) US Breast(s) [facility] Work Phone: Start: 09-08-2016 End: 05-10-2017 Follow Up Appt 3 months Follow Up Appt 3 months [facility] Work Phone: Start: 09-08-2016 End: 05-10-2017 Pacer Clinic Pacer Clinic [facility] Work Phone: Start: 09-08-2016 End: 05-10-2017 Follow Up Appt 3 months Follow Up Appt 3 months [facility] Work Phone: Start: 09-08-2016 End: 05-10-2017 Pacer Clinic Pacer Clinic [facility] Work Phone: Start: 08-08-2016 End: 04-11-2016 *CBC with Differential *CBC with Differential [facility] Work Phone: Start: 08-08-2016 End: 04-11-2016 *CMP Complete Metabolic Panel *CMP Complete Metabolic Panel [facility] Work Phone: Start: 08-08-2016 End: 04-11-2016 LDH enzyme act/vol *LDH -LDH (Lactate Dehydrogenase) [facility] Work Phone: Start: 08-08-2016 End: 04-11-2016 Urate mass conc *Uric Acid Blood [facility] Work Phone: Start: 08-08-2016 End: 04-11-2016 *CBC with Differential *CBC with Differential [facility] Work Phone: Start: 08-08-2016 End: 04-11-2016 *CMP Complete Metabolic Panel *CMP Complete Metabolic Panel [facility] Work Phone: Start: 08-08-2016 End: 04-11-2016 Lactate dehydrogenase (LDH) *LDH -LDH (Lactate Dehydrogenase) [facility] Work Phone: Start: 08-08-2016 End: 04-11-2016 Urate *Uric Acid Blood [facility] Work Phone: Start: 06-02-2016 End: 05-10-2017 Follow Up Appt 3 months Follow Up Appt 3 months [facility] Work Phone: Start: 06-02-2016 End: 05-10-2017 Pacer Clinic Pacer Clinic [facility] Work Phone: Start: 06-02-2016 End: 05-10-2017 Follow Up Appt 3 months Follow Up Appt 3 months [facility] Work Phone: Start: 06-02-2016 End: 05-10-2017 Pacer Clinic Pacer Clinic [facility] Work Phone: Start: 05-18-2016 End: 05-18-2016 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 [facility] Work Phone: Start: 05-18-2016 End: 05-18-2016 Follow Up Appt 6 months Follow Up Appt 6 months [facility] Work Phone: Start: 05-18-2016 End: 05-18-2016 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 [facility] Work Phone: Start: 05-18-2016 End: 05-18-2016 Follow Up Appt 6 months Follow Up Appt 6 months [facility] Work Phone: Start: 04-11-2016 End: 01-12-2016 *CBC with Differential *CBC with Differential [facility] Work Phone: Start: 04-11-2016 End: 04-12-2016 *CMP Complete Metabolic Panel *CMP Complete Metabolic Panel [facility] Work Phone: Start: 04-11-2016 End: 04-12-2016 LDH enzyme act/vol *LDH -LDH (Lactate Dehydrogenase) [facility] Work Phone: Start: 04-11-2016 End: 04-12-2016 Magnesium mass conc *Magnesium [facility] Work Phone: Start: 04-11-2016 End: 04-12-2016 Urate mass conc *Uric Acid Blood [facility] Work Phone: Start: 04-11-2016 End: 01-12-2016 *CBC with Differential *CBC with Differential [facility] Work Phone: Start: 04-11-2016 End: 04-12-2016 *CMP Complete Metabolic Panel *CMP Complete Metabolic Panel [facility] Work Phone: Start: 04-11-2016 End: 04-12-2016 Lactate dehydrogenase (LDH) *LDH -LDH (Lactate Dehydrogenase) [facility] Work Phone: Start: 04-11-2016 End: 04-12-2016 Magnesium *Magnesium [facility] Work Phone: Start: 04-11-2016 End: 04-12-2016 Urate *Uric Acid Blood [facility] Work Phone: Start: 03-02-2016 End: 05-06-2016 Follow Up Appt 3 months Follow Up Appt 3 months [facility] Work Phone: Start: 03-02-2016 End: 05-06-2016 Pacer Clinic Pacer Clinic [facility] Work Phone: Start: 03-02-2016 End: 05-06-2016 Follow Up Appt 3 months Follow Up Appt 3 months [facility] Work Phone: Start: 03-02-2016 End: 05-06-2016 Pacer Clinic Pacer Clinic [facility] Work Phone: Start: 02-12-2016 SHINGRIX VACCINE (1 of 2) SHINGRIX VACCINE (1 of 2) [facility] Start: 02-12-2016 Zoster Vaccines (2 of 3) Zoster Vaccines (2 of 3) [facility] Start: 11-25-2015 End: 05-06-2016 Follow Up Appt 3 months Follow Up Appt 3 months [facility] Work Phone: Start: 11-25-2015 End: 05-06-2016 Pacer Clinic Pacer Clinic [facility] Work Phone: Start: 11-25-2015 End: 05-06-2016 Follow Up Appt 3 months Follow Up Appt 3 months [facility] Work Phone: Start: 11-25-2015 End: 05-06-2016 Pacer Clinic Pacer Clinic [facility] Work Phone: Start: 11-17-2015 End: 11-17-2015 Follow Up Appt 6 months Follow Up Appt 6 months [facility] Work Phone: Start: 11-17-2015 End: 11-17-2015 MMM MMM [facility] Work Phone: Start: 11-17-2015 End: 11-18-2015 Natriuretic peptide B mass conc (Bld) *Brain Natriuretic Peptide BNP [facility] Work Phone: Start: 11-17-2015 End: 11-18-2015 BNP *Brain Natriuretic Peptide BNP [facility] Work Phone: Start: 11-17-2015 End: 11-17-2015 Follow Up Appt 6 months Follow Up Appt 6 months [facility] Work Phone: Start: 11-17-2015 End: 11-17-2015 MMM MMM [facility] Work Phone: Start: 08-18-2015 End: 05-06-2016 Follow Up Appt 3 months Follow Up Appt 3 months [facility] Work Phone: Start: 08-18-2015 End: 05-06-2016 Pacer Clinic Pacer Clinic [facility] Work Phone: Start: 08-18-2015 End: 05-06-2016 Follow Up Appt 3 months Follow Up Appt 3 months [facility] Work Phone: Start: 08-18-2015 End: 05-06-2016 Pacer Clinic Pacer Clinic [facility] Work Phone: Start: 05-07-2015 End: 05-07-2015 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 [facility] Work Phone: Start: 05-07-2015 End: 05-07-2015 Follow Up Appt 6 months Follow Up Appt 6 months [facility] Work Phone: Start: 05-07-2015 End: 05-07-2015 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 [facility] Work Phone: Start: 05-07-2015 End: 05-07-2015 Follow Up Appt 6 months Follow Up Appt 6 months [facility] Work Phone: Start: 03-31-2015 End: 04-08-2015 *CBC with Differential *CBC with Differential [facility] Work Phone: Start: 03-31-2015 End: 04-08-2015 *CMP Complete Metabolic Panel *CMP Complete Metabolic Panel [facility] Work Phone: Start: 03-31-2015 End: 04-08-2015 Cancer Ag 15-3 Ql *CA153 - Cancer Antigen (CA) 15-3 [facility] Work Phone: Start: 03-31-2015 End: 04-08-2015 Cancer Ag 27-29 Ql *CA 27 CA 27-29 [id number] [facility] Work Phone: Start: 03-31-2015 End: 04-08-2015 Carcinoembryonic Ag mass conc *CEA (Carcinoembryonic Ag) [facility] Work Phone: Start: 03-31-2015 End: 04-08-2015 LDH enzyme act/vol *LDH -LDH (Lactate Dehydrogenase) [facility] Work Phone: Start: 03-31-2015 End: 04-08-2015 Thyrotropin Qn *TSH [facility] Work Phone: Start: 03-31-2015 End: 04-08-2015 Urate mass conc *Uric Acid Blood [facility] Work Phone: Start: 03-31-2015 End: 04-08-2015 *CBC with Differential *CBC with Differential [facility] Work Phone: Start: 03-31-2015 End: 04-08-2015 *CMP Complete Metabolic Panel *CMP Complete Metabolic Panel [facility] Work Phone: Start: 03-31-2015 End: 04-08-2015 Cancer Ag 15-3 [Presence] in Serum or Plasma *CA153 - Cancer Antigen (CA) 15-3 [facility] Work Phone: Start: 03-31-2015 End: 04-08-2015 Cancer Ag 27-29 [Presence] in Serum or Plasma *CA 27 CA 27-29 [id number] [facility] Work Phone: Start: 03-31-2015 End: 04-08-2015 Carcinoembryonic antigen *CEA (Carcinoembryonic Ag) [facility] Work Phone: Start: 03-31-2015 End: 04-08-2015 Lactate dehydrogenase (LDH) *LDH -LDH (Lactate Dehydrogenase) [facility] Work Phone: Start: 03-31-2015 End: 04-08-2015 Thyroid stimulating hormone (TSH) *TSH [facility] Work Phone: Start: 03-31-2015 End: 04-08-2015 Urate *Uric Acid Blood [facility] Work Phone: Start: 01-27-2015 End: 01-27-2015 *CBC with Differential *CBC with Differential Placed Work Phone: Start: 01-27-2015 End: 01-27-2015 *CMP Complete Metabolic Panel *CMP Complete Metabolic Panel Placed Work Phone: Start: 01-27-2015 End: 01-27-2015 LDH enzyme act/vol *LDH -LDH (Lactate Dehydrogenase) Placed Work Phone: Start: 01-27-2015 End: 10-02-2015 Urate mass conc *Uric Acid Blood Placed Work Phone: Start: 01-27-2015 End: 01-27-2015 *CBC with Differential *CBC with Differential Placed Work Phone: Start: 01-27-2015 End: 01-27-2015 *CMP Complete Metabolic Panel *CMP Complete Metabolic Panel Placed Work Phone: Start: 01-27-2015 End: 01-27-2015 Lactate dehydrogenase (LDH) *LDH -LDH (Lactate Dehydrogenase) Placed Work Phone: Start: 01-27-2015 End: 10-02-2015 Urate *Uric Acid Blood [facility] Work Phone: Start: 10-30-2014 End: 10-30-2014 Echocardiography Echocardiogram (complete) [facility] Work Phone: Start: 10-30-2014 End: 10-30-2014 Follow Up Appt 4 months Follow Up Appt 4 months [facility] Work Phone: Start: 10-30-2014 End: 10-30-2014 MMM MMM [facility] Work Phone: Start: 10-30-2014 End: 10-30-2014 Echocardiography Echocardiogram (complete) [facility] Work Phone: Start: 10-30-2014 End: 10-30-2014 Follow Up Appt 4 months Follow Up Appt 4 months [facility] Work Phone: Start: 10-30-2014 End: 10-30-2014 MMM MMM [facility] Work Phone: Start: 10-20-2014 End: 10-02-2015 *CBC with Differential *CBC with Differential [facility] Work Phone: Start: 10-20-2014 End: 10-22-2014 *CMP Complete Metabolic Panel *CMP Complete Metabolic Panel Placed Work Phone: Start: 10-20-2014 End: 10-22-2014 LDH enzyme act/vol *LDH -LDH (Lactate Dehydrogenase) [facility] Work Phone: Start: 10-20-2014 End: 10-22-2014 Urate mass conc *Uric Acid Blood [facility] Work Phone: Start: 10-20-2014 End: 10-02-2015 *CBC with Differential *CBC with Differential [facility] Work Phone: Start: 10-20-2014 End: 10-22-2014 *CMP Complete Metabolic Panel *CMP Complete Metabolic Panel [facility] Work Phone: Start: 10-20-2014 End: 10-22-2014 Lactate dehydrogenase (LDH) *LDH -LDH (Lactate Dehydrogenase) [facility] Work Phone: Start: 10-20-2014 End: 10-22-2014 Urate *Uric Acid Blood [facility] Work Phone: Start: 09-20-2014 End: 05-06-2016 *Hepatic Function Panel *Hepatic Function Panel [facility] Work Phone: Start: 09-20-2014 End: 05-06-2016 Lipid 1996 panel *Lipid Profile CC PCP [facility] Work Phone: Start: 09-20-2014 End: 05-06-2016 *Hepatic Function Panel *Hepatic Function Panel [facility] Work Phone: Start: 09-20-2014 End: 05-06-2016 Lipid panel [AGGREGATE] *Lipid Profile CC PCP [facility] Work Phone: Start: 09-08-2014 End: 10-09-2014 *CBC with Differential *CBC with Differential [facility] Work Phone: Start: 09-08-2014 End: 09-10-2014 *CMP Complete Metabolic Panel *CMP Complete Metabolic Panel [facility] Work Phone: Start: 09-08-2014 End: 09-10-2014 LDH enzyme act/vol *LDH -LDH (Lactate Dehydrogenase) [facility] Work Phone: Start: 09-08-2014 End: 09-10-2014 Urate mass conc *Uric Acid Blood [facility] Work Phone: Start: 09-08-2014 End: 10-09-2014 *CBC with Differential *CBC with Differential [facility] Work Phone: Start: 09-08-2014 End: 09-10-2014 *CMP Complete Metabolic Panel *CMP Complete Metabolic Panel [facility] Work Phone: Start: 09-08-2014 End: 09-10-2014 Lactate dehydrogenase (LDH) *LDH -LDH (Lactate Dehydrogenase) [facility] Work Phone: Start: 09-08-2014 End: 09-10-2014 Urate *Uric Acid Blood [facility] Work Phone: Start: 08-14-2014 End: 08-14-2014 *BMP *BMP [facility] Work Phone: Start: 08-14-2014 End: 08-14-2014 *BMP *BMP [facility] Work Phone: Start: 07-10-2014 End: 07-10-2014 *BMP *BMP [facility] Work Phone: Start: 07-10-2014 End: 07-10-2014 24 hour holter monitor 24 hour holter monitor [facility] Work Phone: Start: 07-10-2014 End: 07-10-2014 Follow Up Appt 6 weeks Follow Up Appt 6 weeks [facility] Work Phone: Start: 07-10-2014 End: 07-10-2014 MMM MMM [facility] Work Phone: Start: 07-10-2014 End: 07-10-2014 Natriuretic peptide B mass conc (Bld) *Brain Natriuretic Peptide BNP [facility] Work Phone: Start: 07-10-2014 End: 07-10-2014 T4 mass conc *T4 (Total) [facility] Work Phone: Start: 07-10-2014 End: 07-10-2014 Thyrotropin Qn *TSH [facility] Work Phone: Start: 07-10-2014 End: 07-10-2014 *BMP *BMP [facility] Work Phone: Start: 07-10-2014 End: 07-10-2014 24 hour holter monitor 24 hour holter monitor [facility] Work Phone: Start: 07-10-2014 End: 07-10-2014 BNP *Brain Natriuretic Peptide BNP [facility] Work Phone: Start: 07-10-2014 End: 07-10-2014 Follow Up Appt 6 weeks Follow Up Appt 6 weeks [facility] Work Phone: Start: 07-10-2014 End: 07-10-2014 MMM MMM [facility] Work Phone: Start: 07-10-2014 End: 07-10-2014 Thyroid stimulating hormone (TSH) *TSH [facility] Work Phone: Start: 07-10-2014 End: 07-10-2014 Thyroxine (T4) *T4 (Total) [facility] Work Phone: Start: 06-13-2014 End: 06-17-2014 Ct thorax w/contrast material CT Chest with Contrast [facility] Work Phone: Start: 06-13-2014 End: 06-17-2014 Ct thorax w/dye CT Chest with Contrast [facility] Work Phone: Start: 04-16-2014 End: 04-16-2014 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 [facility] Work Phone: Start: 04-16-2014 End: 04-16-2014 Follow Up Appt 6 months Follow Up Appt 6 months [facility] Work Phone: Start: 04-16-2014 End: 04-16-2014 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 [facility] Work Phone: Start: 04-16-2014 End: 04-16-2014 Follow Up Appt 6 months Follow Up Appt 6 months [facility] Work Phone: Start: 01-18-2014 End: 04-15-2014 *Hepatic Function Panel *Hepatic Function Panel [facility] Work Phone: Start: 01-18-2014 End: 04-15-2014 Lipid 1996 panel *Lipid Profile CC PCP [facility] Work Phone: Start: 01-18-2014 End: 04-15-2014 *Hepatic Function Panel *Hepatic Function Panel [facility] Work Phone: Start: 01-18-2014 End: 04-15-2014 Lipid panel [AGGREGATE] *Lipid Profile CC PCP [facility] Work Phone: Start: 01-09-2014 End: 01-09-2014 *BMP *BMP [facility] Work Phone: Start: 01-09-2014 End: 01-09-2014 CBC W Auto Differential panel - Blood *CBC without Diff [facility] Work Phone: Start: 01-09-2014 End: 01-09-2014 Echocardiography Echocardiogram (complete) [facility] Work Phone: Start: 01-09-2014 End: 01-09-2014 Follow Up Appt 3 months Follow Up Appt 3 months [facility] Work Phone: Start: 01-09-2014 End: 01-09-2014 MMM MMM [facility] Work Phone: Start: 01-09-2014 End: 01-09-2014 *BMP *BMP [facility] Work Phone: Start: 01-09-2014 End: 01-09-2014 CBC W Auto Differential panel - Blood *CBC without Diff [facility] Work Phone: Start: 01-09-2014 End: 01-09-2014 Echocardiography Echocardiogram (complete) [facility] Work Phone: Start: 01-09-2014 End: 01-09-2014 Follow Up Appt 3 months Follow Up Appt 3 months [facility] Work Phone: Start: 01-09-2014 End: 01-09-2014 MMM MMM [facility] Work Phone: Start: 08-01-2013 End: 08-01-2013 Follow Up Appt 6 months Follow Up Appt 6 months [facility] Work Phone: Start: 08-01-2013 End: 08-01-2013 MMM MMM [facility] Work Phone: Start: 08-01-2013 End: 08-01-2013 Follow Up Appt 6 months Follow Up Appt 6 months [facility] Work Phone: Start: 08-01-2013 End: 08-01-2013 MMM MMM [facility] Work Phone: Start: 07-24-2013 End: 07-25-2013 *Hepatic Function Panel *Hepatic Function Panel [facility] Work Phone: Start: 07-24-2013 End: 07-25-2013 Lipid 1996 panel *Lipid Profile [facility] Work Phone: Start: 07-24-2013 End: 07-25-2013 *Hepatic Function Panel *Hepatic Function Panel [facility] Work Phone: Start: 07-24-2013 End: 07-25-2013 Lipid panel [AGGREGATE] *Lipid Profile [facility] Work Phone: Start: 04-22-2013 End: 04-16-2014 Follow Up Appt 3 months Follow Up Appt 3 months [facility] Work Phone: Start: 04-22-2013 End: 04-16-2014 Pacer Clinic Pacer Clinic [facility] Work Phone: Start: 04-22-2013 End: 04-16-2014 Follow Up Appt 3 months Follow Up Appt 3 months [facility] Work Phone: Start: 04-22-2013 End: 04-16-2014 Pacer Clinic Pacer Clinic [facility] Work Phone: Start: 01-14-2013 End: 01-14-2013 Follow Up Appt 6 months Follow Up Appt 6 months [facility] Work Phone: Start: 01-14-2013 End: 01-14-2013 Follow Up Appt 6 months Follow Up Appt 6 months [facility] Work Phone: Start: 01-09-2013 End: 01-14-2013 *BMP *BMP [facility] Work Phone: Start: 01-09-2013 End: 01-14-2013 *Hepatic Function Panel *Hepatic Function Panel [facility] Work Phone: Start: 01-09-2013 End: 01-14-2013 Lipid 1996 panel *Lipid Profile [facility] Work Phone: Start: 01-09-2013 End: 01-14-2013 Magnesium mass conc *Magnesium [facility] Work Phone: Start: 01-09-2013 End: 01-14-2013 *BMP *BMP [facility] Work Phone: Start: 01-09-2013 End: 01-14-2013 *Hepatic Function Panel *Hepatic Function Panel [facility] Work Phone: Start: 01-09-2013 End: 01-14-2013 Lipid panel [AGGREGATE] *Lipid Profile [facility] Work Phone: Start: 01-09-2013 End: 01-14-2013 Magnesium *Magnesium [facility] Work Phone: Start: 09-13-2012 End: 09-13-2012 Follow Up Appt 4 months Follow Up Appt 4 months [facility] Work Phone: Start: 09-13-2012 End: 09-13-2012 Follow Up Appt 4 months Follow Up Appt 4 months [facility] Work Phone: Start: 08-22-2012 End: 09-13-2012 *Hepatic Function Panel *Hepatic Function Panel [facility] Work Phone: Start: 08-22-2012 End: 09-13-2012 Lipid 1996 panel *Lipid Profile [facility] Work Phone: Start: 08-22-2012 End: 09-13-2012 *Hepatic Function Panel *Hepatic Function Panel [facility] Work Phone: Start: 08-22-2012 End: 09-13-2012 Lipid panel [AGGREGATE] *Lipid Profile [facility] Work Phone: Start: 05-24-2012 End: 05-24-2012 Follow Up Appt 3 months Follow Up Appt 3 months [facility] Work Phone: Start: 05-24-2012 End: 05-24-2012 Follow Up Appt 3 months Follow Up Appt 3 months [facility] Work Phone: Start: 01-26-2012 End: 01-26-2012 Ecg routine ecg w/least 12 lds w/i&r EKG (In office) [facility] Work Phone: Start: 01-26-2012 End: 01-26-2012 Echocardiography Echocardiogram (complete) [facility] Work Phone: Start: 01-26-2012 End: 01-26-2012 Follow Up Appt 4 months Follow Up Appt 4 months [facility] Work Phone: Start: 01-26-2012 End: 01-26-2012 Echocardiography Echocardiogram (complete) [facility] Work Phone: Start: 01-26-2012 End: 01-26-2012 Electrocardiogram, complete EKG (In office) [facility] Work Phone: Start: 01-26-2012 End: 01-26-2012 Follow Up Appt 4 months Follow Up Appt 4 months [facility] Work Phone: Start: 01-25-2012 End: 01-24-2012 *BMP *BMP [facility] Work Phone: Start: 01-25-2012 End: 01-24-2012 *Hepatic Function Panel *Hepatic Function Panel [facility] Work Phone: Start: 01-25-2012 End: 01-24-2012 Digoxin mass conc *Digoxin (Drug Assay) [facility] Work Phone: Start: 01-25-2012 End: 01-24-2012 Lipid 1996 panel *Lipid Profile [facility] Work Phone: Start: 01-25-2012 End: 01-24-2012 Magnesium mass conc *Magnesium [facility] Work Phone: Start: 01-25-2012 End: 01-24-2012 *BMP *BMP [facility] Work Phone: Start: 01-25-2012 End: 01-24-2012 *Hepatic Function Panel *Hepatic Function Panel [facility] Work Phone: Start: 01-25-2012 End: 01-24-2012 Digoxin *Digoxin (Drug Assay) [facility] Work Phone: Start: 01-25-2012 End: 01-24-2012 Lipid panel [AGGREGATE] *Lipid Profile [facility] Work Phone: Start: 01-25-2012 End: 01-24-2012 Magnesium *Magnesium [facility] Work Phone: Start: 11-08-2011 End: 11-08-2011 Follow Up Appt 3 months Follow Up Appt 3 months [facility] Work Phone: Start: 11-08-2011 End: 11-08-2011 Follow Up Appt 3 months Follow Up Appt 3 months [facility] Work Phone: Start: 07-27-2007 DTaP/Tdap/Td Vaccines (1 - Tdap) DTaP/Tdap/Td Vaccines (1 - Tdap) [facility] Start: 07-27-2007 Urine microalbumin profile [facility] Start: 07-26-2007 Screening for malignant neoplasm of cervix Cervical Cancer Screening [facility] Start: 2002 RSV Immunization aged 60 or older (1 - 1-dose 60+ series) RSV Immunization aged 60 or older (1 - 1-dose 60+ series) [facility] Start: 2002 RSV Vaccine (1 - 1-dose 60+ series) RSV Vaccine (1 - 1-dose 60+ series) [facility] Start: 1960 Anxiety Screening Anxiety Screening [facility] Start: 1960 Depression Screening Depression Screening [facility] Start: 1960 Diabetes mellitus screening Diabetes Screening [facility] Start: 1954 Depression Screening Depression Screening [facility] Start: 1942 Echocardiography Echocardiogram [facility] Start: 1942 Hepatitis B Vaccines (1 of 3 - 3-dose series) Hepatitis B Vaccines (1 of 3 - 3-dose series) [facility] Start: 1942 Medicare Advantage Annual Wellness Visit (AWV) Medicare Advantage Annual Wellness Visit (AWV) [facility] Start: 1942 Screening for osteoporosis Bone Density Scan [facility] Start: 1942 Thyroid stimulating hormone measurement TSH Level [facility] End: 10-03-2023 ECG COMPLETE ECG COMPLETE ECG Routine Preop cardiovascular exam 1 Occurrences starting 10/03/2022 until 10/03/2023 [facility] Work Phone: Comment on above: 1 Occurrences starting 10/03/2022 until 10/03/2023 End: 07-03-2024 XR HIP GENERAL 3V PELV/AP/LAT RIGHT XR HIP GENERAL 3V PELV/AP/LAT RIGHT Radiology STAT Right hip pain 1 Occurrences starting 06/04/2023 until 07/03/2024 [facility] Work Phone: Comment on above: 1 Occurrences starting 06/04/2023 until 07/03/2024 [facility] Immunizations Immunization Date Immunization Notes Care Provider Fa [facility] 08-02-2023 influenza virus vacc ine, unspecified formulation Roxana 3 [facility] 08-24-2022 Influenza, High-dose Seasonal, Quadrivalent, Preservative Free Jeane Campa MD Work Phone: [facility] 08-24-2022 influenza virus vacc ine, unspecified formulation Jeane Campa MD Work Phone: [facility] 09-14-2021 Influenza, High-dose Seasonal, Quadrivalent, Preservative Free Jeane Campa MD Work Phone: [facility] 03-11-2021 Moderna SARS-CoV-2 Vaccination Jeane Campa MD Work Phone: [facility] 03-11-2021 SARS-CoV-2, Unspecified Arcadio Campa MD Work Phone: [facility] 02-11-2021 Moderna SARS-CoV-2 Vaccination Jeane Campa MD Work Phone: [facility] 02-11-2021 SARS-CoV-2, Unspecified Arcadio Campa MD Work Phone: [facility] 08-24-2020 influenza, high-dose , quadrivalent vaccine (FLUZONE HIGH DOSE QUADRIVALENT) Pac 1 Work Phone: [facility] 08-27-2019 influenza, high dose seasonal, preservative-free Pacc 1 Work Phone: [facility] 08-18-2018 influenza, high dose seasonal, preservative-free Pacc 1 Work Phone: [facility] 08-19-2017 influenza, high dose seasonal, preservative-free Pacc 1 Work Phone: [facility] 08-12-2016 influenza, high dose seasonal, preservative-free Pacc 1 Work Phone: [facility] 12-18-2015 pneumococcal conjuga te vaccine, 13 valent Pacc 1 Work Phone: [facility] 12-18-2015 zoster vaccine, live Pacc 1 Work Phone: [facility] 08-20-2015 influenza virus vacc ine, unspecified formulation Jeane Campa MD Work Phone: [facility] 08-20-2015 influenza, high dose seasonal, preservative-free Pacc 1 Work Phone: [facility] Work Phone: 08-20-2015 influenza, seasonal, injectable Jeane Campa MD Work Phone: [facility] 08-28-2014 influenza virus vacc ine, unspecified formulation Jeane Campa MD Work Phone: [facility] 08-28-2014 influenza, seasonal, injectable Pacc 1 Work Phone: [facility] Work Phone: 08-09-2013 influenza, injectabl e, quadrivalent, preservative free Jeane Campa MD Work Phone: [facility] 09-06-2010 influenza virus vacc ine, unspecified formulation Pacc 1 Work Phone: [facility] 08-19-2009 influenza virus vacc ine, unspecified formulation Pacc 1 Work Phone: [facility] Work Phone: 09-15-2008 influenza virus vacc ine, unspecified formulation [facility] 1 Work Phone: [facility] Work Phone: 09-19-2007 influenza virus vacc ine, unspecified formulation [facility] 1 Work Phone: [facility] Work Phone: 08-20-2007 pneumococcal polysaccharide vaccine, 23 valent [facility] 1 Work Phone: [facility] 07-26-2007 pneumococcal polysaccharide vaccine, 23 valent [facility] 1 Work Phone: [facility] 07-26-2007 TD(adult) unspecifie d formulation Jeane Campa MD Work Phone: [facility] 07-26-2007 tetanus and diphther ia toxoids, adsorbed, preservative free, for adult use (2 Lf of tetanus toxoid and 2 Lf of diphtheria toxoid) [facility] 1 Work Phone: [facility] 09-28-2006 influenza virus vacc ine, unspecified formulation [facility] 1 Work Phone: [facility] Work Phone: 09-29-2005 influenza virus vacc ine, unspecified formulation [facility] 1 Work Phone: [facility] Work Phone: Payers Date Payer Category Payer Medicare [id number] 2021 Unknown [id number] 1940 Unknown [id number] Social History Date Type Detail Facility Never smoker [facility] Start: 1940 Sex Assigned At Female A [facility] Start: 11-07-2023 Tobacco smoking stat [facility] Never smoked tobacco [facility] Start: 09-29-2022 End: 06-04-2023 Alcohol intake Current non-drinker of alcohol (finding) [facility] Start: 1940 Sex Assigned At Not on file [facility] Start: 09-24-2022 End: 08-08-2023 Exposure to SARS-CoV-2 (event) Not sure [facility] Start: 02-07-2023 End: 05-08-2024 Alcohol intake Ex-drinker (finding) [facility] Start: 12-14-2022 End: 02-07-2023 History of Social function [facility] Start: 12-14-2022 End: 02-07-2023 Tobacco use panel [facility] National Score (1-100), lower number is lower risk 57 [facility] Start: 11-07-2023 Tobacco use and exposure Smokeless tobacco non-user [facility] Start: 04-12-2024 Sexual orientation Heterosexual (bharat valdes) [facility] NEGATED: Highlighted rowStart: NINF History of tobacco use Passive smoker [facility] Medical Equipment Procedure Code Equipment Code Equipment Origin al Text Equipment Identifier Dates [id number] [employer] Quat tro Secure [id number] Start: 01-12-[id number] [id number] Start: 08-21-2014 Head Rsp 32mm -4 mm Offset Glenoid Retain Screw - [id number] Start: 10-26-2022 Stem Humeral Altivate Reverse Small Shell Sz [id number] - [id number] Start: 10-26-2022 Baseplate Rsp P2 30mm Glenoid Sterile - [id number] Start: 10-26-2022 Screw Rsp 5mm 14 mm Bone Lock Glenoid Baseplate Shoulder - [id number] Start: 10-26-2022 Tap 6.5mm Surgic al - [id number] Start: 10-26-2022 Insert Ar Small [id number] Neutral +4 Eplus - [id number] Start: 04-12-2023 Shell Humeral Altivate Reverse Small Shell Sz [id number] - [id number] Start: 04-12-2023 Baseplate Rsp P2 30mm Glenoid Sterile - [id number] Start: 04-12-2023 Screw Rsp 5mm 14 mm Bone Lock Glenoid Baseplate Shoulder - [id number] Start: 04-12-2023 [id number] Capsurefix Novus Mri Surescan [id number] Start: 01-12-2011 Cement Simplex P Tobramycin Bone Full Dose Radiopaque Preblend Sterile - [id number] Start: 09-06-2023 Cement Simplex P Tobramycin Bone Full Dose Radiopaque Preblend Sterile - [id number] Start: 09-06-2023 Insert Ar Small [id number] Neutral +4 Eplus - [id number] Start: 10-26-2022 Head Rsp 32mm -4 mm Offset Glenoid Retain Screw - [id number] Start: 04-12-2023 Screw Rsp 5mm 18 mm Bone Lock Glenoid Baseplate Shoulder - [id number] Start: 10-26-2022 Screw Rsp 5mm 26 mm Bone Lock Glenoid Baseplate Shoulder - [id number] Start: 10-26-2022 Screw Rsp 5mm 14 mm Bone Lock Glenoid Baseplate Shoulder - [id number] Start: 10-26-2022 Screw Rsp 5mm 14 mm Bone Lock Glenoid Baseplate Shoulder - [id number] Start: 04-12-2023 Screw Rsp 5mm 18 mm Bone Lock Glenoid Baseplate Shoulder - [id number] Start: 04-12-2023 Screw Rsp 5mm 26 mm Bone Lock Glenoid Baseplate Shoulder - [id number] Start: 04-12-2023 Goals Date Patient Goal Desired Activity /State Personal health goal Clinical Notes 05-16-2014 to 08-08-2024 Telephone Encounter - Jocelynn Hubbard RN - 08/08/2024 2:52 PM EDTTelephone Encounter - Jocelynn Hubbard RN - 08/08/2024 2:52 PM Leroy Akbar - 08/01/2024 2:12 PM EDTPatient Instructions Note Date & Type Note Facility 08-08-2024 Telephone encounter Note OV AM 05/08/24- pending OV GERI 10/22/24 BMP 05/08/24 RX pending [facility] 08-08-2024 Miscellaneous Notes OV AM 05/08/24- pending OV GERI 10/22/24 BMP 05/08/24 RX pending documented in this encounter [facility] 08-01-2024 Note HNO ID: [id number] Author: LEROY DIGGS, ? Service: ? Author Type: Physician Type: Progress Notes Filed: 08/01/2024 14:14 Note Text: Subjective: Patient presents to clinic c/o painful toenails. They state that the nails are especially painful with shoe gear and pressure. Patient states that nails 1-5 b/l are painful. Patient complains of painful ankles/lower extremity b/l. No other pedal complaints at this time. Patient states no change in medications or medical history since last visit. Objective: Patient presents to clinic ambulating in sneakers Vasc: DP and PT pulses are palpable bilateral. CFT is less than 5 seconds bilateral. Skin temperature is warm to cool proximal to distal bilateral. There is severe edema to b/l legs. + calf pain present b/l Neuro: Protective sensation is intact to the foot and toes when tested with the 5.07 SWM bilateral. Vibratory sensation is decreased at the hallux IPJ bilateral. The hallux is downgoing bilateral. Derm: Nails 1-5 b/l are painful, discolored-yellow, thick, crumbly, dystrophic and with subungal debris. Skin is of normal turgor, texture and hair growth is present bilateral. There are callus to left hallux. no ulcerations, scars, verruca or other lesions noted. Ortho: Muscle strength is 5/5 for all pedal groups tested. Ankle joint DF is decreased with the knee extended with no pain or crepitus noted. 1st MPJ ROM is decreased bilateral. Hallux valgus is noted b/l Assessment: (B35.1) Onychomycosis (primary encounter diagnosis) (M79.675) Pain in toe of left foot (M79.674) Pain in toe of right foot (M79.661, M79.662) Bilateral calf pain Plan: Patient was seen and evaluated. Nails 1-5 bilateral were debrided in length and thickness. Discussed pain in ankle/lower leg. Likely related to swelling. Would benefit from compression. Will check ultrasound first to make sure no dvt Patient is to RTC in 3-4 months. Leroy Diggs DPM [facility] 08-01-2024 History of Presen t illness Narrative Subjective: Patient presents to clinic c/o painful toenails. They state that the nails are especially painful with shoe gear and pressure. Patient states that nails 1-5 b/l are painful. Patient complains of painful ankles/lower extremity b/l. No other pedal complaints at this time. Patient states no change in medications or medical history since last visit. Objective: Patient presents to clinic ambulating in [facility] Vasc: DP and PT pulses are palpable bilateral. CFT is less than 5 seconds bilateral. Skin temperature is warm to cool proximal to distal bilateral. There is severe edema to b/l legs. + calf pain present b/l Neuro: Protective sensation is intact to the foot and toes when tested with the 5.07 SWM bilateral. Vibratory sensation is decreased at the hallux IPJ bilateral. The hallux is downgoing bilateral. Derm: Nails 1-5 b/l are painful, discolored-yellow, thick, crumbly, dystrophic and with subungal debris. Skin is of normal turgor, texture and hair growth is present bilateral. There are callus to left hallux. no ulcerations, scars, verruca or other lesions noted. Ortho: Muscle strength is 5/5 for all pedal groups tested. Ankle joint DF is decreased with the knee extended with no pain or crepitus noted. 1st MPJ ROM is decreased bilateral. Hallux valgus is noted b/l Assessment: (B35.1) Onychomycosis (primary encounter diagnosis) (M79.675) Pain in toe of left foot (M79.674) Pain in toe of right foot (M79.661, M79.662) Bilateral calf pain Plan: Patient was seen and evaluated. Nails 1-5 bilateral were debrided in length and thickness. Discussed pain in ankle/lower leg. Likely related to swelling. Would benefit from compression. Will check ultrasound first to make sure no dvt Patient is to RTC in 3-4 months. Leroy Diggs DPM Patient presents with: Left Foot - Established Patient, Follow Up, nail care Right Foot - Established Patient, Follow Up, nail care Left Ankle - Established Patient, Pain, Swelling Right Ankle - Established Patient, Pain, Swelling Patient presents for follow up nail care. States that she also has intermittent pain, redness, and swelling to bilateral ankles. New over the last few weeks PRIYA 04/18/24 documented in this encounter [facility] 08-01-2024 Note HNO ID: [id number] Author: PAULA PARKINSON RN Service: ? Author Type: Registered Nurse Type: Progress Notes Filed: 08/01/2024 14:14 Note Text: Patient presents with: Left Foot - Established Patient, Follow Up, nail care Right Foot - Established Patient, Follow Up, nail care Left Ankle - Established Patient, Pain, Swelling Right Ankle - Established Patient, Pain, Swelling Patient presents for follow up nail care. States that she also has intermittent pain, redness, and swelling to bilateral ankles. New over the last few weeks PRIYA 04/18/24 [facility] 05-08-2024 History of Presen t illness Narrative [facility] Cardiology - Heart Failure Clinic Progress Note Name: Desirae Archuleta Date of : 1940 Date of Service: 05/08/24 Chief Complaint: Chief Complaint Patient presents with 6 Month Follow-up Acute on chronic heart failure Assessment and Plan 1. Chronic HFrEF (heart failure with reduced ejection fraction), NICM, stage C. NYHA II -Pt is warm and appears only mildly hypervolemic on exam, possibly 2/2 increase PO intake of fluids recently, she has been taking torsemide 20 mg daily, increase to torsemide 40 mg daily x3 days -Continue high dose Entresto, Toprol-XL 25 mg daily, spironolactone 50 mg daily, and Farxiga 10 mg daily -Labs today stable, Na and K+ WNL, digoxin level WNL, called Pt after visit with results -Very minimal symptoms at this time, denies any SOB, has not been hospitalized with HF, if recurrent issues with hypervolemia and worsening symptoms consider invasive evaluation for MitraClip -Follow-up in 6 months for annual visit, sooner with me if needed 2. Nonrheumatic mitral valve regurgitation -See above 3. Essential hypertension, benign -BP goal <130/80 mmHg -BP today at goal, continue high dose Entresto 4. ICD (implantable cardioverter-defibrillator) in place -Following with our device clinic Follow-up: 6 months for annual visit Dr. Campa, sooner with me if needed Subjective History of Presenting Illness: Desirae Archuleta is a 83 y.o. female with a past medical history significant for HFrEF, MR, HTN, NICM who presents to the office today for routine follow-up. Pt is known to Dr. Campa. OV October [address] Campa, plan for clinical follow-up regarding MitraClip. If worsening dyspnea, exercise capacity decreases or difficulty managing volume we will consider proceeding with MitraClip if she would desire invasive procedure. She was last seen in office 12/20/23 for an urgent visit with Dr. Campa. She was found to be mildly hypervolemic on exam. She was continued on torsemide 40 mg daily for a few days and reduce to 20 mg daily when at dry weight. In the office today, Desirae Archuleta states that she has no complaints. She notices some swelling in the hot weather. She denies shortness of breath, chest pain, light-headedness, dizziness, syncope. She does have intermittent palpitations. Review of Systems: Review of Systems Constitutional: Negative for activity change, chills, diaphoresis, fatigue and fever. HENT: Negative for nosebleeds and trouble swallowing. Eyes: Negative for discharge and visual disturbance. Respiratory: Negative for apnea, cough, chest tightness, shortness of breath (denies any shortness of breath) and wheezing. Cardiovascular: Positive for palpitations (intermittent) and leg swelling (worse in the warm weather). Negative for chest pain (denies). Gastrointestinal: Negative for abdominal distention, abdominal pain, blood in stool, diarrhea, nausea and vomiting. Endocrine: Negative for cold intolerance and heat intolerance. Genitourinary: Negative for hematuria. Musculoskeletal: Negative for gait problem and myalgias. Skin: Negative for color change and rash. Neurological: Negative for dizziness (denies), seizures, syncope (denies), facial asymmetry, speech difficulty, weakness, light-headedness (denies), numbness and headaches. Hematological: Does not bruise/bleed easily. Psychiatric/Behavioral: Negative for dysphoric mood. Current Outpatient Medications Medication Instructions allopurinol (ZYLOPRIM) 300 mg, Oral, Daily budesonide EC (ENTOCORT EC) 3 mg, Oral, Daily calcium 500 mg, Oral, Daily cholecalciferol (Vitamin D-3) 50 MCG (1999) capsule Oral digoxin (LANOXIN) 125 mcg, Oral, Every other day Farxiga 10 MG tablet TAKE 1 TABLET BY MOUTH ONCE DAILY FOR CONGESTIVE HEART FAILURE leflunomide (ARAVA) 10 mg, Oral, Daily levothyroxine (Synthroid, Levoxyl) 112 MCG tablet TAKE 1 TABLET BY MOUTH ONCE DAILY FOR THYROID metoprolol succinate XL (Toprol-XL) 25 MG 24 hr tablet TAKE 1 TABLET BY MOUTH ONCE DAILY. DO NOT CRUSH OR CHEW Multiple Vitamins-Minerals (ONE-A-DAY 50 PLUS PO) Oral NON FORMULARY daily with lunch. 2 gummies for Hair, Skin and Nails at lunch last dose 10/12 omeprazole (PRILOSEC) 40 mg, Oral, Daily, for stomach sacubitril-valsartan (Entresto) 97-103 MG tablet 1 tablet, Oral, 2 times daily simvastatin (Zocor) 40 MG tablet TAKE 1 TABLET BY MOUTH ONCE DAILY IN THE EVENING FOR CHOLESTEROL spironolactone (ALDACTONE) 50 mg, Oral, Daily torsemide (DEMADEX) 40 mg, Oral, Every morning triamcinolone (Kenalog) 0.1 % cream APPLY CREAM TOPICALLY TWICE DAILY Allergies Allergen Reactions Paclitaxel Anaphylatic Reaction, went to [facility] ER on 02/04/09 Hydrocodone-Acetaminophen Nausea And Vomiting Nitrofurantoin Other Wound Dressing Adhesive Itching Amoxicillin-Pot Clavulanate Diarrhea Other Other Cephalexin Rash Past Medical History: Diagnosis Date CHF (congestive heart failure) (HCC) Hypertension Mixed hyperlipidemia 07/17/2006 LDL goal <70 Prediabetes 10/04/2022 Sleep apnea CPAP- pt states she is compliant with treatment. 11/07/23 Social History Tobacco Use Smoking status: Never Passive exposure: Never Smokeless tobacco: Never Substance Use Topics Alcohol use: Not Currently Past Surgical History: Procedure Laterality Date CARDIAC CATHETERIZATION Family History Problem Relation Name Age of Onset Cancer Mother Heart failure Mother Aneurysm Mother Heart disease Brother Heart disease Brother Objective Physical Exam: Vitals: 05/08/24 1316 BP: 132/68 BP Location: Left arm Patient Position: Sitting Pulse: 91 SpO2: 95% Weight: 185 lb (83.9 kg) Height: 5' 3 (1.6 m) Physical Exam Vitals reviewed. Constitutional: Appearance: Normal appearance. She is obese. She is not ill-appearing. HENT: Head: Normocephalic and atraumatic. Neck: Vascular: JVD present. Comments: Mildly elevated Cardiovascular: Rate and Rhythm: Normal rate and regular rhythm. Pulmonary: Effort: Pulmonary effort is normal. Breath sounds: No wheezing, rhonchi or rales. Musculoskeletal: Right lower leg: Edema present. Left lower leg: Edema present. Skin: General: Skin is warm and dry. Neurological: General: No focal deficit present. Mental Status: She is alert and oriented to person, place, and time. Psychiatric: Mood and Affect: Mood normal. Behavior: Behavior normal. Data Reviewed and Summarized Last cardiac device check 03/04/24 Normal (B) ICD remote evaluation. BARBARA HOPKINS. Presenting EGM: SR BV= 2.88 V. Estimated longevity 5-12-19 months. Last cap reform 12/09/23. Charge time 4.3 seconds. RA lead= 4 mV, 380 ohms, 0.625 V / 0.4 ms auto capture, AP 2.6%. 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 Shock impedance 47/62 ohms. Interrogation reveals normal ICD function w/ MVP mode. 1 SVT episode 11/16/23 lasting 21 sec w/ Avg V rate of 171 bpm. On BB. Next (B) remote on 06/11/24. Pt notified Yessenia Romero RN Patient and family counseling: Patient was counseled on diet, activity, medications and signs and symptoms of heart failure to report. Follow-up has been arranged and written discharge instructions were provided by the heart failure clinic. I have answered all questions as posed to me by Lv Azamrubenana. Sreedhar Hatch PA-C [facility] [address] [place], [place] [id number] P-[phone] F-[phone] This note was electronically signed by Sreedhar Hatch PA-C, at 4:29 PM, on 05/08/24 . documented in this encounter [facility] 05-08-2024 Instructions Sreedhar Hatch PA-C - 05/08/2024 1:00 PM EDT -Desirae you are holding onto a little extra fluid today -We will get your labs from last week sent to us for my review, if stable, we will have you take two torsemide 20 mg tablets for 3 days -Please call me if anything changes Remember, you have a diagnosis of Heart Failure . This means your heart does not pump blood as efficiently as it should. You need to be careful about holding on to extra fluid/water. You should: 1) Weigh yourself every day (first thing in the morning after you void/urinate). Take note of your weight. If you gain more than 3 lbs in 1 day, or 5 lbs in 1 week, take 1 extra fluid pill to help you pee off some water, you can let our office know. 2) Do NOT drink fluids in excess. In general we ask heart failure patients to try to not drink more than 2000 mL (a 2 Liter bottle) per day. This can vary depending on what you do that day however. 3) If you develop symptoms of fluid congestion , which include trouble breathing, difficulty breathing while exercising, difficulty breathing while laying flat, leg or belly swelling, or weight gain -- please call our office [phone] documented in this encounter [facility] 05-08-2024 Note [facility] Cardiology - Heart Failure Clinic Progress Note Name: Desirae Archuleta Date of : 1940 Date of Service: 05/08/24 Chief Complaint: Chief Complaint Patient presents with 6 Month Follow-up Acute on chronic heart failure Assessment and Plan 1. Chronic HFrEF (heart failure with reduced ejection fraction), NICM, stage C. NYHA II -Pt is warm and appears only mildly hypervolemic on exam, possibly 2/2 increase PO intake of fluids recently, she has been taking torsemide 20 mg daily, increase to torsemide 40 mg daily x3 days -Continue high dose Entresto, Toprol-XL 25 mg daily, spironolactone 50 mg daily, and Farxiga 10 mg daily -Labs today stable, Na and K+ WNL, digoxin level WNL, called Pt after visit with results -Very minimal symptoms at this time, denies any SOB, has not been hospitalized with HF, if recurrent issues with hypervolemia and worsening symptoms consider invasive evaluation for MitraClip -Follow-up in 6 months for annual visit, sooner with me if needed 2. Nonrheumatic mitral valve regurgitation -See above 3. Essential hypertension, benign -BP goal <130/80 mmHg -BP today at goal, continue high dose Entresto 4. ICD (implantable cardioverter-defibrillator) in place -Following with our device clinic Follow-up: 6 months for annual visit Dr. Campa, sooner with me if needed Subjective History of Presenting Illness: Desirae Archuleta is a 83 y.o. female with a past medical history significant for HFrEF, MR, HTN, NICM who presents to the office today for routine follow-up. Pt is known to Dr. Campa. OV October [address] Campa, plan for clinical follow-up regarding MitraClip. If worsening dyspnea, exercise capacity decreases or difficulty managing volume we will consider proceeding with MitraClip if she would desire invasive procedure. She was last seen in office 12/20/23 for an urgent visit with Dr. Campa. She was found to be mildly hypervolemic on exam. She was continued on torsemide 40 mg daily for a few days and reduce to 20 mg daily when at dry weight. In the office today, Desirae Archuleta states that she has no complaints. She notices some swelling in the hot weather. She denies shortness of breath, chest pain, light-headedness, dizziness, syncope. She does have intermittent palpitations. Review of Systems: Review of Systems Constitutional: Negative for activity change, chills, diaphoresis, fatigue and fever. HENT: Negative for nosebleeds and trouble swallowing. Eyes: Negative for discharge and visual disturbance. Respiratory: Negative for apnea, cough, chest tightness, shortness of breath (denies any shortness of breath) and wheezing. Cardiovascular: Positive for palpitations (intermittent) and leg swelling (worse in the warm weather). Negative for chest pain (denies). Gastrointestinal: Negative for abdominal distention, abdominal pain, blood in stool, diarrhea, nausea and vomiting. Endocrine: Negative for cold intolerance and heat intolerance. Genitourinary: Negative for hematuria. Musculoskeletal: Negative for gait problem and myalgias. Skin: Negative for color change and rash. Neurological: Negative for dizziness (denies), seizures, syncope (denies), facial asymmetry, speech difficulty, weakness, light-headedness (denies), numbness and headaches. Hematological: Does not bruise/bleed easily. Psychiatric/Behavioral: Negative for dysphoric mood. Current Outpatient Medications Medication Instructions allopurinol (ZYLOPRIM) 300 mg, Oral, Daily budesonide EC (ENTOCORT EC) 3 mg, Oral, Daily calcium 500 mg, Oral, Daily cholecalciferol (Vitamin D-3) 50 MCG (1999) capsule Oral digoxin (LANOXIN) 125 mcg, Oral, Every other day Farxiga 10 MG tablet TAKE 1 TABLET BY MOUTH ONCE DAILY FOR CONGESTIVE HEART FAILURE leflunomide (ARAVA) 10 mg, Oral, Daily levothyroxine (Synthroid, Levoxyl) 112 MCG tablet TAKE 1 TABLET BY MOUTH ONCE DAILY FOR THYROID metoprolol succinate XL (Toprol-XL) 25 MG 24 hr tablet TAKE 1 TABLET BY MOUTH ONCE DAILY. DO NOT CRUSH OR CHEW Multiple Vitamins-Minerals (ONE-A-DAY 50 PLUS PO) Oral NON FORMULARY daily with lunch. 2 gummies for Hair, Skin and Nails at lunch last dose 10/12 omeprazole (PRILOSEC) 40 mg, Oral, Daily, for stomach sacubitril-valsartan (Entresto) 97-103 MG tablet 1 tablet, Oral, 2 times daily simvastatin (Zocor) 40 MG tablet TAKE 1 TABLET BY MOUTH ONCE DAILY IN THE EVENING FOR CHOLESTEROL spironolactone (ALDACTONE) 50 mg, Oral, Daily torsemide (DEMADEX) 40 mg, Oral, Every morning triamcinolone (Kenalog) 0.1 % cream APPLY CREAM TOPICALLY TWICE DAILY Allergies Allergen Reactions Paclitaxel Anaphylatic Reaction, went to [facility] ER on 02/04/09 Hydrocodone-Acetaminophen Nausea And Vomiting Nitrofurantoin Other Wound Dressing Adhesive Itching Amoxicillin-Pot Clavulanate Diarrhea Other Other Cephalexin Rash Past Medical History: Muna (more content not included)... [facility] 04-18-2024 Note HNO ID: [id number] Author: LEROY DIGGS, ? Service: ? Author Type: Physician Type: Progress Notes Filed: 04/18/2024 13:32 Note Text: Subjective: Patient presents to clinic c/o painful toenails. They state that the nails are especially painful with shoe gear and pressure. Patient states that nails 1-5 b/l are painful. Does have rash to b/l hands as the result of being prescribed doxycycline for infected should. No other pedal complaints at this time. Patient states no change in medications or medical history since last visit. Objective: Patient presents to clinic ambulating in [facility] Vasc: DP and PT pulses are palpable bilateral. CFT is less than 5 seconds bilateral. Skin temperature is warm to cool proximal to distal bilateral. There is no edema or varicosities noted. Neuro: Protective sensation is intact to the foot and toes when tested with the 5.07 SWM bilateral. Vibratory sensation is decreased at the hallux IPJ bilateral. The hallux is downgoing bilateral. Derm: Nails 1-5 b/l are painful, discolored-yellow, thick, crumbly, dystrophic and with subungal debris. Skin is of normal turgor, texture and hair growth is present bilateral. There are callus to left 1st metatarsal. N o other wounds or callus noted. Ortho: Muscle strength is 5/5 for all pedal groups tested. Ankle joint DF is decreased with the knee extended with no pain or crepitus noted. 1st MPJ ROM is decreased bilateral. Bunion is present b/l feet Assessment: (B35.1) Onychomycosis (primary encounter diagnosis) (M79.675) Pain in toe of left foot (M79.674) Pain in toe of right foot Plan: Patient was seen and evaluated. Nails 1-5 bilateral were debrided in length and thickness. Callus reduced to left 1st metatarsal with dremmel. Offered steroid cream for hands. Patient is going to discuss with pcp. Patient is to RTC in 3-4 months. Leroy Diggs DPM [facility] 04-18-2024 History of Presen t illness Narrative Subjective: Patient presents to clinic c/o painful toenails. They state that the nails are especially painful with shoe gear and pressure. Patient states that nails 1-5 b/l are painful. Does have rash to b/l hands as the result of being prescribed doxycycline for infected should. No other pedal complaints at this time. Patient states no change in medications or medical history since last visit. Objective: Patient presents to clinic ambulating in [facility] Vasc: DP and PT pulses are palpable bilateral. CFT is less than 5 seconds bilateral. Skin temperature is warm to cool proximal to distal bilateral. There is no edema or varicosities noted. Neuro: Protective sensation is intact to the foot and toes when tested with the 5.07 SWM bilateral. Vibratory sensation is decreased at the hallux IPJ bilateral. The hallux is downgoing bilateral. Derm: Nails 1-5 b/l are painful, discolored-yellow, thick, crumbly, dystrophic and with subungal debris. Skin is of normal turgor, texture and hair growth is present bilateral. There are callus to left 1st metatarsal. N o other wounds or callus noted. Ortho: Muscle strength is 5/5 for all pedal groups tested. Ankle joint DF is decreased with the knee extended with no pain or crepitus noted. 1st MPJ ROM is decreased bilateral. Bunion is present b/l feet Assessment: (B35.1) Onychomycosis (primary encounter diagnosis) (M79.675) Pain in toe of left foot (M79.674) Pain in toe of right foot Plan: Patient was seen and evaluated. Nails 1-5 bilateral were debrided in length and thickness. Callus reduced to left 1st metatarsal with dremmel. Offered steroid cream for hands. Patient is going to discuss with pcp. Patient is to RTC in 3-4 months. Leroy Diggs DPM AMB ROOMING INTAKE FLOWSHEET DATA Patient presents with: Left Foot - Established Patient, Follow Up, nail care Right Foot - nail care , Established Patient, Follow Up Mary Kurtz LPN documented in this encounter [facility] 04-18-2024 Note HNO ID: [id number] Author: MARY KURTZ LPN Service: ? Author Type: LICENSED NURSE Type: Progress Notes Filed: 04/18/2024 13:32 Note Text: AMB ROOMING INTAKE FLOWSHEET DATA Patient presents with: Left Foot - Established Patient, Follow Up, nail care Right Foot - nail care , Established Patient, Follow Up Mary Kurtz LPN [facility] 03-05-2024 Miscellaneous Notes OV GERI 12/20/23- pending OV with AM 05/08/24 RX pending documented in this encounter [facility] 03-05-2024 Telephone encounter Note OV GERI 12/20/23- pending OV with AM 05/08/24 RX pending [facility] 02-27-2024 Telephone encounter Note OV GERI 12/20/23- pending OV with AM 05/08/24 BMP 12/27/23 RX pending [facility] 02-27-2024 Miscellaneous Notes OV GERI 12/20/23- pending OV with AM 6 BMP 2/7/ RX pending documented in this encounter [facility] 02-07-2024 Telephone encounter Note OV GERI 12/20/23- pending ov with AM 05/08/24 BMP 2/7/ RX pending [facility] 02-07-2024 Miscellaneous Notes OV GERI 12/20/23- pending ov with AM 6 BMP 2// RX pending documented in this encounter [facility] 01-18-2024 Note HNO ID: [id number] Author: LEROY DIGGS, ? Service: ? Author Type: Physician Type: Progress Notes Filed: 01/18/2024 10:13 Note Text: Initial Office Visit Subjective: This 83 year old fmelae presents to clinic for diabetic foot check. Patient has the following complaints: painful great toenail, right hallux. Patient presents to clinic for evaluation of b/l feet. Her greatest complaint is pain in right great toenail. She is here requesting nail debridement. Patient denies diabetes but does report numbness in her foot. Patient - pain in legs when walking. No other pedal complaints at this time. No change in medications or medical history since last visit. PAIN EVALUATION No data found in the last 1 encounters. 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 sacubitril-valsartan (ENTRESTO) 49-51 mg tablet Take 1 [...] DAILY ON EMPTY STOMACH every Mon, , Thurs, Fri, Sat Two tablets every Mon and Mon (Patient taking differently: Take 112 mcg by mouth every morning.) omeprazole (PRILOSEC) 40 mg capsule Take 1 capsule by mouth once daily. (Patient taking differently: Take 40 mg by mouth every morning.) simvastatin (ZOCOR) 40 mg tablet Take 1 tablet by mouth daily at bedtime. Yyifnrfvezzay-Rr-Uiea-Minerals (ONE-A-DAY WOMENS FORMULA) 27-0.4 mg ORAL Tab Take 1 tablet by mouth daily with lunch. Last dose 03/29/23 CALCIUM 600 WITH VITAMIN D3 600 MG-200 UNIT TAB Take 1 tablet by mouth daily with lunch. Last dose 03/29/23 on vitamins/ supplements No current facility-administered medications for this visit. ALLERGIES Allergen Reactions Augmentin [Amoxicil* Diarrhea Tolerated cefazolin and ceftriaxone at [facility] in 08/2023 Keflex [Cephalexin] Rash Hand and buttocks Tolerated cefazolin and ceftriaxone at [facility] in 08/2023 [place] [Hydrocodone-* Vomiting Taxol [Paclitaxel] Anaphylatic Reaction, went to [facility] ER on 02/04/09 Adhesive Tape (Malaika* Other: See Comments Itching with prolonged use PAST SURGICAL HISTORY Procedure Laterality Date ANES ARTHROSCOPIC TOTAL SHOULDER REPLACEMENT Right 10/2022 ARTHRP KNE CONDYLEANDPLATU MEDIALANDLAT COMPARTMENTS Left 2007 left knee replacement BREAST LUMPECTOMY HX Left 1994 chemo and radiation BX BREAST PERC NEED W/GUID 01/30/2013 U/S needle core bx left axilla CHOLECYSTECTOMY Cholecystectomy COLONOSCOPY W/BIOPSY 06/02/2016 diverticula COLONOSCOPY FLX DX W/COLLJ SPEC WHEN PFRMD 12/06/2007 EGD 06/02/2016 mild gastritis EGD 0 (more content not included)... [facility] 01-18-2024 History of Presen t illness Narrative Initial Office Visit Subjective: This 83 year old fmelae presents to clinic for diabetic foot check. Patient has the following complaints: painful great toenail, right hallux. Patient presents to clinic for evaluation of b/l feet. Her greatest complaint is pain in right great toenail. She is here requesting nail debridement. Patient denies diabetes but does report numbness in her foot. Patient - pain in legs when walking. No other pedal complaints at this time. No change in medications or medical history since last visit. PAIN EVALUATION No data found in the last 1 encounters. Hemoglobin A1C Date Value 03/16/2023 6.0 % 10/04/2022 6.2 % 08/19/2017 6.4 PCP: Marquis Branch MD PAST MEDICAL HISTORY Diagnosis Date Anemia runs anemic at time- on iron supplements off and on- non for awhile Arthritis Breast cancer (HCC) 05/16/2014 left- occurred 3 times- 1994, 2007 and 2013- lumpectomy, affected breast then beside breast then lymph node- Dr Mcdonough Cervical arthritis 08/19/2017 CHF (congestive heart failure) ([facility]) 02/14/2011 Difficult intravenous access Diverticulosis of colon (without mention of hemorrhage) Esophageal reflux controlled with omeprazole Essential hypertension, benign controlled with medication Female stress incontinence GERD without esophagitis History of breast cancer 07/09/2012 Left breast: 1994, 2007, 2012-Oncologist Dr. 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 sacubitril-valsartan (ENTRESTO) 49-51 mg tablet Take 1 [...] Mon, Sat Two tablets every Mon and Mon (Patient taking differently: Take 112 mcg by mouth every morning.) omeprazole (PRILOSEC) 40 mg capsule Take 1 capsule by mouth once daily. (Patient taking differently: Take 40 mg by mouth every morning.) simvastatin (ZOCOR) 40 mg tablet Take 1 tablet by mouth daily at bedtime. Dettexvolfqdj-Ar-Cghk-Minerals (ONE-A-DAY WOMENS FORMULA) 27-0.4 mg ORAL Tab Take 1 tablet by mouth daily with lunch. Last dose 03/29/23 CALCIUM 600 WITH VITAMIN D3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 adjustment or management of cardiac device documented in this encounter [facility] note* Diagnosis Onychomycosis- Primary Dermatophytosis of nail Pain in toe of left foot Pain in limb Pain in toe of right foot Pain in limb Acquired hallux valgus of left foot Hallux valgus (acquired) documented in this encounter [facility]* Diagnosis Chronic HFrEF (heart failure with reduced ejection fraction) (HCC) Encounter for adjustment or management of cardiac device documented in this encounter [facility] note* Diagnosis Chronic HFrEF (heart failure with reduced ejection fraction) (HCC) Encounter for adjustment or management of cardiac device documented in this encounter [facility] note* Diagnosis Onychomycosis- Primary Dermatophytosis of nail Pain in toe of left foot Pain in limb Pain in toe of right foot Pain in limb documented in this encounter [facility]* Diagnosis Chronic HFrEF (heart failure with reduced ejection fraction) (HCC)- Primary Nonrheumatic mitral valve regurgitation Essential hypertension, benign ICD (implantable cardioverter-defibrillator) in place Encounter for adjustment or management of cardiac device documented in this encounter [facility] note* Diagnosis Acute deep vein thrombosis (DVT) of left upper extremity, unspecified vein (HCC) [facility] Pre-operative examination- Primary Preoperative examination, unspecified Smith's esophagus with dysplasia Smith's esophagus Essential hypertension, benign Hyperlipidemia LDL goal <130 Other and unspecified hyperlipidemia Nonischemic cardiomyopathy (HCC) Other primary cardiomyopathies Acquired hypothyroidism Unspecified hypothyroidism History of breast cancer Personal history of malignant neoplasm of breast Chronic gout without tophus, unspecified cause, unspecified site Class 2 severe obesity due to excess calories with serious comorbidity and body mass index (BMI) of 35.0 to 35.9 in adult ([facility]) Onychomycosis- Primary Dermatophytosis of nail Pain in toe of left foot Pain in limb Pain in toe of right foot Pain in limb Bilateral calf pain Pain in limb Bilateral calf pain Pain in limb [facility] Diagnosis Pre-operative examination- Primary Preoperative examination, unspecified Smith's esophagus with dysplasia Smith's esophagus Essential hypertension, benign Hyperlipidemia LDL goal <130 Other and unspecified hyperlipidemia Nonischemic cardiomyopathy (HCC) Other primary cardiomyopathies Acquired hypothyroidism Unspecified hypothyroidism History of breast cancer Personal history of malignant neoplasm of breast Chronic gout without tophus, unspecified cause, unspecified site Class 2 severe obesity due to excess calories with serious comorbidity and body mass index (BMI) of 35.0 to 35.9 in adult ([facility]) Bilateral calf pain Pain in limb documented in this encounter [facility]* Diagnosis Chronic HFrEF (heart failure with reduced ejection fraction) ([facility]) Encounter for adjustment or management of cardiac device Encounter for adjustment or management of cardiac device [facility] Diagnosis Pre-operative examination- Primary Preoperative examination, unspecified Smith's esophagus with dysplasia Smith's esophagus Essential hypertension, benign Hyperlipidemia LDL goal <130 Other and unspecified hyperlipidemia Nonischemic cardiomyopathy (HCC) Other primary cardiomyopathies Acquired hypothyroidism Unspecified hypothyroidism History of breast cancer Personal history of malignant neoplasm of breast Chronic gout without tophus, unspecified cause, unspecified site Class 2 severe obesity due to excess calories with serious comorbidity and body mass index (BMI) of 35.0 to 35.9 in adult (HCC) Right hip pain Pain in joint, pelvic region and thigh documented in this encounter [facility] Discharge instructions No data available for this section [facility] Reason for referral (narrative)* Outpatient Procedure (Routine) - Pending Review Specialty Diagnoses / Procedures Referred By Contac t Referred To Contact [facility] Diagnoses Preop cardiovascular exam Procedures ECG COMPLETE ECG ROUTINE ECG W/LEAST 12 LDS W/I&R Gilberto Watson DO [address] [place] [address] [facility] [place] [address] [place] [address] Referral ID Status Reason Start Date Expiration Date Visits Requested Visits Authorized [id number] Pending Review Auto-Generat ed Referral 10/03/2023 1 1 [facility] for referral (narrative)* Diagnostic Procedure Only (Urgent) - Pending Review Specialty Diagnoses / Procedures Referred By Contac t Referred To Contact XR IMAGING Diagnoses Right hip pain Procedures XR HIP GENERAL 3V PELV/AP/LAT RIGHT RADEX HIP UNILATERAL WITH PELVIS 2-3 VIEWS [facility] [address] [place] [address] Xr Imaging Referral ID Status Reason Start Date Expiration Date Visits Requested Visits Authorized [id number] Pending Review Auto-Generat ed Referral 06/04/2023 07/03/2024 1 1 [facility] for referral (narrative)* Outpatient Procedure (Urgent) - Closed Specialty Diagnoses / Procedures Referred By Contac t Referred To Contact [facility] Diagnoses Acute deep vein thrombosis (DVT) of left upper extremity, unspecified vein (HCC) Procedures US ARM VEIN DVT UNL VAS LAB DUP-SCAN XTR VEINS UNILATERAL/LIMITED STUDY Gilberto Watson DO [address] [place] [address] [facility] [place] [address] [place] [address] Referral ID Status Reason Start Date Expiration Date V isits Requested Visits Authorized [id number] Closed Auto-Generate d Referral 05/21/2024 11/19/2024 1 1 [facility] for referral (narrative)* Diagnostic Procedure Only (Urgent) - Closed Specialty Diagnoses / Procedures Referred By Contac t Referred To Contact US IMAGING Diagnoses Bilateral calf pain Procedures US DVT LOWER BILATERAL DUP-SCAN XTR VEINS COMPLETE BILATERAL STUDY Leroy Diggs [address] [place] [address] [place] [address] Referral ID Status Reason Start Date Expiration Date V isits Requested Visits Authorized [id number] Closed Auto-Generate d Referral 08/01/2024 08/31/2025 1 1 [facility] for referral (narrative)* Diagnostic Procedure Only (Urgent) - Closed Specialty Diagnoses / Procedures Referred By Contac t Referred To Contact US IMAGING Diagnoses Bilateral calf pain Procedures US DVT LOWER BILATERAL DUP-SCAN XTR VEINS COMPLETE BILATERAL STUDY Leroy Diggs [address] [place] [address] [place] [address] Referral ID Status Reason Start Date Expiration Date V isits Requested Visits Authorized [id number] Closed Auto-Generate d Referral 08/01/2024 08/31/2025 1 1 [facility] for referral (narrative)* Diagnostic Procedure Only (Urgent) - Closed Specialty Diagnoses / Procedures Referred By Contac t Referred To Contact XR IMAGING Diagnoses Right hip pain Procedures XR HIP GENERAL 3V PELV/AP/LAT RIGHT RADEX HIP UNILATERAL WITH PELVIS 2-[address] [facility] [address] [place] [address] [place] [address] Referral ID Status Reason Start Date Expiration Date V isits Requested Visits Authorized [id number] Closed Auto-Generate d Referral 06/04/2023 07/03/2024 1 1 [facility] for visit Narrative* Outpatient Procedure (Urgent) - Closed Specialty Diagnoses / Procedures Referred By Contac t Ref[facility] Diagnoses Acute deep vein thrombosis (DVT) of left upper extremity, unspecified vein (HCC) Procedures US ARM VEIN DVT UNL VAS LAB DUP-SCAN XTR VEINS UNILATERAL/LIMITED STUDY Gilberto Watson [address] [place] [address] [facility] [place] [address] [place] [address] Referral ID Status Reason Start Date Expiration Date V isits Requested Visits Authorized [id number] Closed Auto-Generate d Referral 05/21/2024 11/19/2024 1 1 [facility] for visit Narrative* Diagnostic Procedure Only (Urgent) - Closed Specialty Diagnoses / Procedures Referred By Rosy pemberton Referred To Contact US IMAGING Diagnoses Bilateral calf pain Procedures US DVT LOWER BILATERAL DUP-SCAN XTR VEINS COMPLETE BILATERAL STUDY Leroy Diggs [address] [place] [address] [place] [id number] Referral ID Status Reason Start Date Expiration Date V isits Requested Visits Authorized [id number] Closed Auto-Generate d Referral 08/01/2024 08/31/2025 1 1 [facility] for visit Narrative* Outpatient Procedure (Routine) - Closed Specialty Diagnoses / Procedures Referred By Rosy pemberton Referred To Contact Radiology / RADIO CT SCAN Diagnoses Other 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, subsequent encounter Nondisplaced fracture of acromial process, left shoulder, subsequent encounter for fracture with routine healing CT SHOULDER L DONKATHY,NON DIPLACE FX,,OFFICE CALLING,FAXING ORDER Procedures CT UPPER EXTREMITY W/O CONTRAST MATERIAL CT WO MSK [address] Gilberto Watson, [address] [place] [address] Scan [facility] [address] [place] [address] Referral ID Status Reason Start Date Expiration Date Visits Re quested Visits Authorized [id number] Closed 10/26/2023 12/25/2023 1 1 [facility] for visit Narrative* Diagnostic Procedure Only (Urgent) - Closed Specialty Diagnoses / Procedures Referred By Contac t Referred To Contact XR IMAGING Diagnoses Right hip pain Procedures XR HIP GENERAL 3V PELV/AP/LAT RIGHT RADEX HIP UNILATERAL WITH PELVIS 2-[address] [facility] [address] [facility] [place] [address] [place] [id number] Referral ID Status Reason Start Date Expiration Date V isits Requested Visits Authorized [id number] Closed Auto-Generate d Referral 06/04/2023 07/03/2024 1 1 [facility] Summary Purpose Family History No Family History Records FoundNo Family History Records FoundNo Family History Records FoundNo Family History Records FoundNo Family History Records Found Advance Directives No Advanced Directives Records FoundLatest Code Status on File Code Status Date Activated Date Inactivated Comments Full Code 09/06/2023 6:31 PM 09/12/2023 6:11 PM Question Answer Comments Full Code Order Discussed With: Patient Date Activated Date Inactivated Comments 09/06/2023 6:31 PM 09/12/2023 6:11 PM Question Answer Comments Full Code Order Discussed With: Patient Date Activated Date Inactivated Comments 09/06/2023 6:31 PM 09/12/2023 6:11 PM Question Answer Comments Full Code Order Discussed With: Patient Reason for Referral Specialty Diagnoses / Procedures Referred By Contac t Referred To Contact Cardiology Diagnoses Chronic HFrEF (heart failure with reduced ejection fraction) (HCC) Procedures Transthoracic echocardiogram (TTE) complete with contrast, bubble, strain, and 3D PRN NC ECHO TTHRC R-T 2D W/WOM-MODE COMPL SPEC&COLR D NC TTE W OR WO FOL WCON,DOPPLER Sreedhar Hatch PA-C [address] [place] [address] Referral ID Status Reason Start Date Expiration Date V isits Requested Visits Authorized [id number] Pending Review 08/08/2023 02/04/2024 1 1 Additional Source Comments INFORMATION SOURCE (unrecogn ized section and content) DATE CREATED AUTHOR 2020 [facility] DATE CREATED AUTHOR AUTHOR'S ORGANIZ ATION 08/25/2023 [facility] ([place]) DATE CREATED AUTHOR AUTHOR'S ORGANIZ ATION 05/22/2024 [facility] DATE CREATED AUTHOR AUTHOR'S ORGANIZ ATION 08/03/2024 [facility] DATE CREATED AUTHOR AUTHOR'S ORGANIZ ATION 09/11/2024 [facility] Source Comments (unrecognize d section and content) In the event this informatio n is protected by the Federal Confidentiality of Alcohol and Drug Abuse Patient Records regulations: The Federal rules restrict any use of the information to criminally investigate or prosecute any alcohol or drug abuse patient.[facility] the event this information is protected by the Federal Confidentiality of Alcohol and Drug Abuse Patient Records regulations: The Federal rules restrict any use of the information to criminally investigate or prosecute any alcohol or drug abuse patient.[facility] the event this information is protected by the Federal Confidentiality of Alcohol and Drug Abuse Patient Records regulations: The Federal rules restrict any use of the information to criminally investigate or prosecute any alcohol or drug abuse patient.[facility] the event this information is protected by the Federal Confidentiality of Alcohol and Drug Abuse Patient Records regulations: The Federal rules restrict any use of the information to criminally investigate or prosecute any alcohol or drug abuse patient.[facility] the event this information is protected by the Federal Confidentiality of Alcohol and Drug Abuse Patient Records regulations: The Federal rules restrict any use of the information to criminally investigate or prosecute any alcohol or drug abuse patient.[facility] the event this information is protected by the Federal Confidentiality of Alcohol and Drug Abuse Patient Records regulations: The Federal rules restrict any use of the information to criminally investigate or prosecute any alcohol or drug abuse patient.[facility] the event this information is protected by the Federal Confidentiality of Alcohol and Drug Abuse Patient Records regulations: The Federal rules restrict any use of the information to criminally investigate or prosecute any alcohol or drug abuse patient.[facility] the event this information is protected by the Federal Confidentiality of Alcohol and Drug Abuse Patient Records regulations: The Federal rules restrict any use of the information to criminally investigate or prosecute any alcohol or drug abuse patient.[facility] the event this information is protected by the Federal Confidentiality of Alcohol and Drug Abuse Patient Records regulations: The Federal rules restrict any use of the information to criminally investigate or prosecute any alcohol or drug abuse patient.[facility] the event this information is protected by the Federal Confidentiality of Alcohol and Drug Abuse Patient Records regulations: The Federal rules restrict any use of the information to criminally investigate or prosecute any alcohol or drug abuse patient.[facility] the event this information is protected by the Federal Confidentiality of Alcohol and Drug Abuse Patient Records regulations: The Federal rules restrict any use of the information to criminally investigate or prosecute any alcohol or drug abuse patient.[facility] the event this information is protected by the Federal Confidentiality of Alcohol and Drug Abuse Patient Records regulations: The Federal rules restrict any use of the information to criminally investigate or prosecute any alcohol or drug abuse patient.[facility] the event this information is protected by the Federal Confidentiality of Alcohol and Drug Abuse Patient Records regulations: The Federal rules restrict any use of the information to criminally investigate or prosecute any alcohol or drug abuse patient.[facility] Care Teams (unrecognized sec tion and content) Office Administration Instructor Relationship Specialty Start Date End Date Marquis Branch MD [address] [place] [address] PCP - General Internal Medicine 11/10/21 Office Administration Instructor Relationship Specialty Start Date End Date Marquis Branch MD [address] [place] [address] PCP - General Internal Medicine 11/10/21 Office Administration Instructor Relationship Specialty Start Date End Date Marquis Branch [address] [place] [address] PCP - General 05/02/22 Office Administration Instructor Relationship Specialty Start Date End Date Marquis Branch MD [address] [place] [address] PCP - General Internal Medicine 11/10/21 Office Administration Instructor Relationship Specialty Start Date End Date Marquis Branch MD [address] [place] [address] PCP - General Internal Medicine 11/10/21 Office Administration Instructor Relationship Specialty Start Date End Date Marquis Branch [address] [place] [address] PCP - General 05/02/22 Office Administration Instructor Relationship Specialty Start Date End Date Marquis Branch MD [address] [place] [address] PCP - General Internal Medicine 11/10/21 Office Administration Instructor Relationship Specialty Start Date End Date Marquis Branch MD [address] [place] [address] PCP - General Internal Medicine 11/10/21 Office Administration Instructor Relationship Specialty Start Date End Date Marquis Branch [address] [place] [address] PCP - General 05/02/22 Office Administration Instructor Relationship Specialty Start Date End Date Marquis Branch [address] [place] [address] PCP - General 05/02/22 Office Administration Instructor Relationship Specialty Start Date End Date Marquis Branch [address] [place] [address] PCP - General 05/02/22 Cherri Villarreal, manager medical writingAutomation Application Engineer Global Risk Management Director 09/14/23 Office Administration Instructor Relationship Specialty Start Date End Date Marquis Branch [address] [place] [address] PCP - General 05/02/22 Office Administration Instructor Relationship Specialty Start Date End Date Marquis Branch [address] [place] [address] PCP - General 05/02/22 Office Administration Instructor Relationship Specialty Start Date End Date Marquis Branch MD [address] [place] [address] PCP - General Internal Medicine 11/10/21 Office Administration Instructor Relationship Specialty Start Date End Date Marquis Branch [address] [place] [address] PCP - General 05/02/22 Office Administration Instructor Relationship Specialty Start Date End Date Marquis Branch MD [address] [place] [address] PCP - General Internal Medicine 11/10/21 Office Administration Instructor Relationship Specialty Start Date End Date Marquis Branch [address] [place] [address] PCP - General 05/02/22 Cherri Villarreal RN Case Automation Application Engineer Global Risk Management Director 09/14/2309/28/23 Office Administration Instructor Relationship Specialty Start Date End Date Marquis Branch [address] [place] [address] PCP - General 05/02/22 Office Administration Instructor Relationship Specialty Start Date End Date Marquis Bracnh MD [address] [place] [address] PCP - General Internal Medicine 11/10/21 Office Administration Instructor Relationship Specialty Start Date End Date Marquis Branch MD [address] [place] [address] PCP - General Internal Medicine 11/10/21 Office Administration Instructor Relationship Specialty Start Date End Date Marquis Branch MD [address] [place], [place] [address] PCP - General Internal Medicine 11/10/21 Office Administration Instructor Relationship Specialty Start Date End Date Marquis Branch MD [address] [place], [place] [id number] PCP - General Internal Medicine 11/10/21 Office Administration Instructor Relationship Specialty Start Date End Date Marquis Branch [address] [place] [address] PCP - General 05/02/22 Office Administration Instructor Relationship Specialty Start Date End Date Marquis Branch MD [address] [place], [place] [address] PCP - General Internal Medicine 11/10/21 Reason for Visit (unrecogniz ed section and content) Reason Onset Date Comments Cardiac Clearance 02/27/2023 Reason Comments pacc hx call Reason Onset Date Comments Med Refill 05/25/2023 Reason Comments Right Hip Pain Started about 2 week s ago, worsened Reason Comments Results Reason Comments New Patient 6 Month Follow-up Reason Comments Med Refill Reason Onset Date Comments Other 09/18/2023 Reason Comments Follow-up Congestive Heart Failure Edema Reason Onset Date Comments Nasal Congestion 01/17/2024 Reason Comments New nail care Reason Comments Established Patient Follow Up nail care Reason Onset Date Comments Results 09/08/2023 Reason Comments 6 Month Follow-up Reason Comments Established Patient Follow Up nail care Pain Swelling FOR RECORDS PERTAINING TO PATIENTS WHO ARE [...] BE BASED ON THE PRIMARY CLINICAL RECORDS. [employer] ([employer] [facility]. provides no warranty or guarantee of the accuracy or completeness of information in this document.
[2024-09-15] MEDS: Propofol 200 MG/20 ML Vial 60 MG IV BOLUS (08:55)
--- NOTE | 2024-09-15 09:00 | RAD_ITS ---
INDICATION: post reduction EXAMINATION/TECHNIQUE: X-RAY - RIGHT XR Shoulder Min 2 Views 2 VIEWS COMPARISON: Previous of the same date done earlier. FINDINGS: SOFT TISSUES: No soft tissue swelling or gas. No radiopaque foreign body. BONES/JOINTS: Previously noted dislocation of the shoulder prosthesis has been reduced. The alignment appears to be unremarkable. The acromioclavicular joint is intact. No sclerotic or destructive changes observed. RAD/Shoulder min 2 Views IMPRESSION: Reduced dislocation. Electronically Signed: Rajiv Braga MD at 10:15 EDT ,
== END 2024-09-15 10:12 | disposition home or self-care (01) ==
PROVIDERS: Emergency Provider Emergency Medicine; PCP Internal Medicine; Visit Provider Emergency Medicine
DX: S43.014A Anterior dislocation of right humerus, initial encounter (principal); J44.9 Chronic obstructive pulmonary disease, unspecified; Z90.710 Acquired absence of both cervix and uterus; E78.5 Hyperlipidemia, unspecified; I10 Essential (primary) hypertension; Z96.611 Presence of right artificial shoulder joint; Z79.899 Other long term (current) drug therapy; K21.9 Gastro-esophageal reflux disease without esophagitis; E03.9 Hypothyroidism, unspecified; Z96.653 Presence of artificial knee joint, bilateral; Z90.49 Acquired absence of other specified parts of digestive tract; Z95.810 Presence of automatic (implantable) cardiac defibrillator
CPT/HCPCS: 23650; 73030; 99284; J7040; A4216

== ENCOUNTER → 2024-09-25 | Outpatient (CLI) | payer MEDICARE, SELFPAY | END | disposition home or self-care (01) | PROVIDERS: PCP Internal Medicine; Referring Provider Physician Assistant; Visit Provider Physician Assistant | DX: R60.0 Localized edema (principal); I83.893 Varicose veins of bilateral lower extremities with other complications | CPT/HCPCS: 93970 ==

== ENCOUNTER 2024-10-10 11:51 | Outpatient (RCR) | payer MEDICARE, SELFPAY ==
[2024-10-10 12:50] LABS: Absolute Lymphocyte Count 1.78 X10^3/uL (0.83-4.51); Basophil# 0.03 X10^3/uL; Basophil% 0.4 % (0-1); Eosinophil# 0.32 X10^3/uL; Eosinophils% 4.6 % (0-5); Hematocrit 32.9 % (37-47); Hemoglobin 10.2 g/dL (12.0-15.0); Lymphocyte # 1.78 X10^3/ul (0.83-4.51); Lymphocyte % 25.4 % (19-41); Mean Corpuscular Hgb 28.7 pg (27.0-32.0); Mean Corpuscular Volume 92.4 fL (81-99); Mean Platelet Vol. 9.2 fl (6.2-12.0); Monocyte# 0.86 X10^3/uL; Monocyte% 12.3 % (0-10); NRBC Flagged by Analyzer 0 % (0-5); Neutrophil # 3.98 X10^3/uL (2.7-7.7); Neutrophil % 56.9 % (47-70); Platelet Count 349 K/mm3 (150-450); RBC Distribution Width CV 15.2 % (11.6-14.6); Red Blood Count 3.56 M/mm3 (4.2-5.4)
[2024-10-10 13:22] LABS: ALB/GLOB Ratio 0.9 RATIO (0.9-2.4); AST(SGOT) 23 U/L (15-37); Alanine Aminotransfer ALT/SGPT 13 U/L (13-56); Albumin, Serum 3.3 g/dL (3.2-5.0); Alkaline Phosphatase 105 U/L (45-117); Anion Gap 8 (5-15); BUN 23 mg/dL (7-18); BUN/Creat Ratio 18.9 RATIO (10-20); Chloride 104 mmol/L (98-107); Creatinine, Serum 1.22 mg/dL (0.55-1.02); EST Glomerular Filtration Rate 45 mL/min (>60); Est Glom Filt Rate - Afr Amer 54 mL/min (>60); Globulin 3.7 g/dL (2.2-4.2); Glucose 101 mg/dL (74-106); Potassium 3.8 mmol/L (3.5-5.1); Sodium Level 136 mmol/L (136-145)
[2024-10-10 14:56] LABS: BNP,B-Type NATRIURETIC PEPTIDE 1264.1 pg/mL (0-100)
== END 2024-10-19 18:00 | disposition home or self-care (01) ==
LOC: LAB 11:51
PROVIDERS: PCP Internal Medicine; Referring Provider Internal Medicine Rheumatology; Visit Provider Internal Medicine Rheumatology
DX: I50.22 Chronic systolic (congestive) heart failure (principal); L40.59 Other psoriatic arthropathy; Z79.899 Other long term (current) drug therapy; L40.8 Other psoriasis; M17.0 Bilateral primary osteoarthritis of knee
CPT/HCPCS: 36415; 80053; 83880; 85025

== ENCOUNTER 2024-11-14 19:05 | Emergency (ER) | payer MEDICARE, SELFPAY ==
[2024-11-14 19:06] VITALS: BP 119/55; PULSE 86; RESP 18; TEMP 36.4; O2SAT 96; BMI 30.4
--- NOTE | 2024-11-14 19:22 | RAD_ITS ---
STUDY: X-RAY CHEST REASON FOR EXAM: Female, 84 years old. pain TECHNIQUE: Single frontal view of the chest. COMPARISON: October 17, 2023 FINDINGS: Bipolar AICD in the left unchanged. Local surgical clips. Bilateral shoulder arthroplasties. The lungs are clear and expanded. There is no demonstrated pleural abnormality. Cardiomegaly. Normal mediastinum and kirk. Normal visualized pulmonary arteries. Normal visualized aortic arch and descending thoracic aorta. Mild scoliosis and spondylosis. Normal visualized ribs, clavicles, and shoulders. There is no demonstrated abnormality of the visualized soft tissue structures of the upper abdomen. RAD/Chest 1 View (Portable) IMPRESSION: Stable chest Electronically Signed: Alex Grubbs MD at 20:54 EST ,
--- NOTE | 2024-11-14 19:25 | EDS_ITS ---
HPI History of Present Illness Chief Complaint: Upper Extremity Injury Informant: patient and spouse/S.O. Narrative Narrative: Patient here with spouse for evaluation worsening left shoulder pain for the last week. History of bilateral total replacements followed by Dr. Nguyễn in [place]. Her initial shoulder replacement in March 2022. She had an infection in August 2023 requiring revision. She states presentation was similar with increasing pain. There is redness to the shoulder feeling hot. She does have a defibrillator left chest wall redness that progressed into upper chest. She has no fevers or chills. She is not on any immunosuppressants. She is not a diabetic. Is not on any blood thinners. She did call her orthopedic doctor and has an appointment on Monday however due to pain comes to the ED today. Prior similar symptoms: Yes PFSH PFSH Medical History Infection of shoulder Trochanteric bursitis of right hip Frequent falls Carpal tunnel syndrome on both sides Osteoporosis DVT (deep venous thrombosis) Chronic back pain Anxiety Depression Hypothyroidism Chronic pain Kidney disease GERD (gastroesophageal reflux disease) Paronychia of finger On potassium wasting diuretic therapy Hyponatremia Right knee pain Low back pain Right lumbar radiculitis IT band syndrome Greater trochanteric bursitis of right hip Degenerative disc disease, lumbar Trigger finger, right middle finger Anemia Palpitations Primary osteoarthritis of right knee Arthritis Non-ischemic cardiomyopathy Obesity Essential (primary) hypertension Mouth ulcers Paroxysmal supraventricular tachycardia Nonrheumatic mitral (valve) insufficiency HLD (hyperlipidemia) Mitral valve disorder Lightheadedness Atrial enlargement, bilateral Shortness of breath Recurrent cancer of left breast COPD (chronic obstructive pulmonary disease) Home Medications ?Medication ?Instructions ?Recorded ?Last Taken ?Type calcium 600 mg (as 1 each PO DAILY supplement 08/08/14 10/17/21 History carbonate)-vitamin D3 10 mcg (400 unit) tablet multivitamin 1 tablet PO DAILY supplement 01/19/21 10/17/21 History cholecalciferol (vitamin D3) 125 125 mcg PO DAILY 02/15/22 Unknown History mcg (5,000 unit) tablet (Vitamin D3) spironolactone 50 mg tablet 50 mg PO DAILY #90 tabs 04/19/22 Unknown Rx digoxin 125 mcg (0.125 mg) tablet 125 mcg PO .Every Other Day 07/18/22 Unknown History dapagliflozin propanediol 10 mg 10 mg PO DAILY 12/04/23 Unknown History tablet (Farxiga) omeprazole 40 mg capsule,delayed 40 mg PO DAILY #90 caps 12/13/23 Unknown Rx release allopurinol 300 mg tablet 300 mg PO DAILY gout #90 tabs 01/22/24 Unknown Rx simvastatin 40 mg tablet 40 mg PO QPM cholesterol #90 tabs 01/22/24 Unknown Rx nystatin 100,000 unit/gram topical 1 applic topical BID PRN rash #60 02/15/24 Unknown Rx powder grams ascorbic acid (vitamin C) 500 mg 500 mg PO DAILY 07/16/24 Unknown History capsule,extended release leflunomide 10 mg tablet 10 mg PO QDAY 08/08/24 Unknown History metoprolol succinate 25 mg 25 mg PO DAILY 08/08/24 Unknown History tablet,extended release 24 hr sacubitril 97 mg-valsartan 103 mg 1 tab PO BID 08/08/24 Unknown History tablet (Entresto) levothyroxine 112 mcg tablet 112 mcg PO DAILY thyroid #90 tabs 09/02/24 Unknown Rx loperamide 2 mg tablet 2 mg PO TID 09/11/24 Unknown History torsemide 20 mg tablet 40 mg PO DAILY 10/16/24 Unknown History Allergy/AdvReac Type Severity Reaction Status Date / Time adhesive tape (tape) Allergy Severe RASH, Verified 11/14/24 19:06 ITCHING cephalexin Allergy Severe Rash Verified 11/14/24 19:06 paclitaxel (From Taxol) Allergy Severe PASS OUT Verified 11/14/24 19:06 amoxicillin AdvReac Severe C-DIFF Verified 11/14/24 19:06 hydrocodone AdvReac Vomiting Verified 11/14/24 19:06 Family History Mother , age 90 CHF (congestive heart failure) Cancer Breast cancer CAD (coronary artery disease) Brother , age 71 CHF (congestive heart failure) Hx of CABG Brother CAD (coronary artery disease) Daughter Asthma Surgical History History of left shoulder replacement History of total bilateral knee replacement History of appendectomy History of bilateral knee replacement History of implantable cardiac defibrillator (ICD) (08/22/14) History of shoulder surgery History of carpal tunnel release of both wrists History of left knee replacement History of lumpectomy of left breast History of left heart catheterization (04/20/22) H/O right and left heart catheterization (2009) Hx of cholecystectomy History of hysterectomy Social History household members: spouse housing: house pets and animals: No Smoking Status: Never smoker alcohol intake: never substance use type: does not use caffeine: No what type of physical activity do you participate in: bicycling and other frequency: 3-4 times per week duration: 15-30 minutes/day seatbelt use: always do you feel safe at home: Yes ROS ROS ED Constitutional Constitutional ED: Denies chills, fever(s) or sweats ENT ENT ED: Denies sore throat Cardiovascular Cardiovascular: Denies chest pain, leg edema, palpitations or racing heartbeat Respiratory/Chest Respiratory/Chest: Denies cough, dyspnea or dyspnea on exertion Gastrointestinal Gastrointestinal: Denies abdominal pain, diarrhea, nausea or vomiting Genitourinary Genitourinary ED: Denies dysuria, hematuria or urinary frequency Musculoskeletal Musculoskeletal: Reports extremity pain; Denies back pain or neck pain Integumentary Denies rash or wounds Neurologic Neurologic: Denies headache(s), paresthesias or weakness EXAM Physical Exam Const Vital Signs: 11/14/24 19:06 Temperature 97.6 F L Temperature Source Oral Pulse Rate 86 Respiratory Rate 18 Blood Pressure 119/55 L Blood Pressure Mean 76 Pulse Ox 96 Oxygen Delivery Method Room Air Positive well nourished and well developed Constitutional Narrative: Nontoxic General Appearance ED: well developed HEENT Reports moist mucous membranes normocephalic and atraumatic Eyes General Eye ED: Yes normal appearance of both eyes Neck full ROM Chest Wall Chest Narrative: Left upper chest pacemaker definitive device, redness in the left upper chest wall, no crepitus. Chest: Negative for tenderness Resp normal respiratory effort and normal air movement Effort and Inspection: symmetric chest movement; Negative for respiratory distress Cardio regular rate, regular rhythm and no murmurs Peripheral Pulses: pulses 2+ throughout GI normal to inspection, nondistended, normoactive bowel sounds and non-tender Palpation: Negative for guarding or rebound tenderness present Extremity Extremity Narrative: Bilateral anterior shoulders with scarring. Left side scarring with redness swelling noted anteriorly there is no crepitus. Pain with movement of the shoulder. General Extremety ED: Yes tenderness; Negative for edema General Extremity: Negative for edema Neuro oriented x3 and no sensory deficits noted Sensorium / Orientation: awake and alert Skin Skin Narrative: See above MDM MDM MDM Narrative Medical decision making narrative: Interventions / MDM: Differential diagnosis: Left shoulder infection, chronic dislocation left shoulder. History of prosthesis. Diagnosis considered but do not suspect: N/A My EKG interpretation: N/A Imaging independently reviewed and interpreted by myself: Left shoulder 3 views: Kyle down the shaft appears anterior dislocation. 1 view chest x-ray: Pacemaker device, no acute process. External documents reviewed: N/A Test considered but not ordered:N/A ED course: Patient redness warmth left anterior shoulder progressive chest wall. Afebrile nontoxic pain with movement of the shoulder. History of similar with prosthetic joint infection. Laboratory studies drawn inflammatory markers blood cultures. Left shoulder film, 1 view chest x-ray ordered. Morphine Zofran for symptom control. Will reach out to her medical sales specialist for discussion for disposition plans. 2044: X-ray shoulder appears with anterior dislocation however she has a prosthesis with a kyle. She is moving her shoulder with pain however no restrictions. She denies any injuries. Chest x-ray was negative. Labs thus far returned CRP elevated 83, ESR's CBC pending. creatinine 1.63. Previous creatinine 1.2 over a month ago. Will give her a liter of fluids. I spoke with [facility] transfer with hospitalist Dr. Shaw who did coordinate with orthopedics Dr. Zaman over the phone. Discussed the concerns and her history. She is excepted under his service and Ortho will see the patient there. Will hold off on antibiotics at this time with her blood pressure being stable and to avoid sterilizing potential arthrocentesis that is needed. 2047: White count returned at 6.9. Hemoglobin 10.6 platelets 256. 2129: ESR returned also at 84. Radiology also notes anterior dislocation. Further discussion with the patient her shoulder she has a antibiotic block place in her left shoulder she has never been able to raise her shoulder up since then over a year ago. Reevaluation with manipulation especially with shoulder internal rotation I do feel the shoulder joint moving back in place. However placed down it goes right back out. Therefore I do feel this is a chronic dislocation with her history. Awaiting transfer at this time. Re-evaluation: stable Disposition discussed with patient/family/significant other: Patient significant other [facility] This note was generated with [employer] dictation software. It may contain incorrect words, spelling, and punctuation that were not noted in checking the note before signing. Discharge Plan Triage Chief Complaint: Upper Extremity Injury ED Provider: Mario Luo Dx/Rx/DC Orders Clinical Impression: Infection of shoulder, Prosthetic shoulder infection, COPD (chronic obstructive pulmonary disease), Left shoulder pain, Chronic dislocation of left shoulder, Renal insufficiency Prescriptions: No Action multivitamin Tablet 1 tablet PO DAILY digoxin 125 mcg (0.125 mg) tablet 125 mcg PO .Every Other Day torsemide 20 mg tablet 40 mg PO DAILY leflunomide 10 mg tablet 10 mg PO QDAY Patient Comments: TAKE 1 TABLET BY MOUTH ONCE DAILY ascorbic acid (vitamin C) 500 mg capsule, extended release 500 mg PO DAILY nystatin 100,000 unit/gram powder 1 applic topical BID PRN (Reason: rash) Qty: 60 5RF Farxiga 10 mg tablet 10 mg PO DAILY metoprolol succinate 25 mg tablet extended release 24 hr 25 mg PO DAILY Entresto 97-103 mg tablet 1 tab PO BID loperamide 2 mg tablet 2 mg PO TID calcium carbonate-vitamin D3 1 EACH tablet 1 each PO DAILY Patient Comments: SUPPLEMENT cholecalciferol (vitamin D3) [Vitamin D3] 125 mcg (5,000 unit) Tablet 125 mcg PO DAILY spironolactone 50 mg tablet 50 mg PO DAILY Qty: 90 3RF omeprazole 40 mg capsule,delayed release(DR/EC) 40 mg PO DAILY Qty: 90 3RF simvastatin 40 mg tablet 40 mg PO QPM Qty: 90 3RF allopurinol 300 mg tablet 300 mg PO DAILY Qty: 90 3RF levothyroxine 112 mcg tablet 112 mcg PO DAILY Qty: 90 3RF Primary Care Provider: Annetta Branch Referrals: Annetta Branch MD [Primary Care Provider] - Print Language: Lithuanian
[2024-11-14] MEDS: Morphine 4 MG/ML Syringe IV (19:37)
[2024-11-14] MEDS: Ondansetron 4 MG/2 ML Vial IV (19:37)
--- NOTE | 2024-11-14 19:45 | RAD_ITS ---
STUDY: X-RAY - LEFT SHOULDER REASON FOR EXAM: Female, 84 years old. pain, infection TECHNIQUE: 2 view(s) of the shoulder. COMPARISON: January 30, 2024. FINDINGS: Humeral head dislocated anteriorly. Normal acromioclavicular joint. Normal acromion. Prosthetic humeral head appears dense. Intramedullary pradeep noted. The soft tissue structures are unremarkable. Normal visualized pulmonary apex. RAD/Shoulder min 2 Views IMPRESSION: Anterior glenohumeral dislocation. Postop changes distal humerus. Electronically Signed: Alex Grubbs MD at 21:28 EST ,
[2024-11-14 19:53] LABS: Absolute Lymphocyte Count 1.81 X10^3/uL (0.83-4.51); Basophil# 0.05 X10^3/uL; Basophil% 0.7 % (0-1); Eosinophil# 0.15 X10^3/uL; Eosinophils% 2.2 % (0-5); Hematocrit 33.4 % (37-47); Hemoglobin 10.6 g/dL (12.0-15.0); Lymphocyte # 1.81 X10^3/ul (0.83-4.51); Lymphocyte % 26.4 % (19-41); Mean Corp Hgb Conc 31.7 g/dL (32-36); Mean Corpuscular Hgb 28.2 pg (27.0-32.0); Mean Corpuscular Volume 88.8 fL (81-99); Mean Platelet Vol. 9.6 fl (6.2-12.0); Monocyte# 0.84 X10^3/uL; Monocyte% 12.3 % (0-10); NRBC Flagged by Analyzer 0 % (0-5); Neutrophil # 3.98 X10^3/uL (2.7-7.7); Neutrophil % 58.1 % (47-70); POSITIVE COUNT YES; Platelet Count 256 K/mm3 (150-450); RBC Distribution Width CV 16.3 % (11.6-14.6); RBC Distribution Width SD 52.1 fl (35.1-43.9); Red Blood Count 3.76 M/mm3 (4.2-5.4); White Blood Count 6.9 K/mm3 (4.4-11.0)
[2024-11-14 20:04] LABS: International Normalized Ratio 1.1; Partial Thromboplast Time 21.8 Seconds (24.1-36.2); Prothrombin Time (Protime)PT. 13.9 SECONDS (11.7-14.9)
[2024-11-14 20:25] LABS: ALB/GLOB Ratio 0.7 RATIO (0.9-2.4); AST(SGOT) 35 U/L (15-37); Alanine Aminotransfer ALT/SGPT 16 U/L (13-56); Albumin, Serum 3.1 g/dL (3.2-5.0); Alkaline Phosphatase 166 U/L (45-117); Anion Gap 9 (5-15); BUN 39 mg/dL (7-18); BUN/Creat Ratio 23.9 RATIO (10-20); Calcium,Total 9.1 mg/dL (8.5-10.1); Chloride 97 mmol/L (98-107); Creatinine, Serum 1.63 mg/dL (0.55-1.02); EST Glomerular Filtration Rate 32 mL/min (>60); Est Glom Filt Rate - Afr Amer 39 mL/min (>60); Estimated Creatinine Clearance 25.29 ml/min; Globulin 4.4 g/dL (2.2-4.2); Glucose 132 mg/dL (74-106); Potassium 4.6 mmol/L (3.5-5.1); Protein, Total 7.5 g/dL (6.4-8.2); Sodium Level 136 mmol/L (136-145)
[2024-11-14 20:45] LABS: Differential Indicated SCAN CRITERIA MET
[2024-11-14 20:49] LABS: Differential Comment SCANNED; Platelet Estimate ADEQUATE (ADEQ)
[2024-11-14 20:50] LABS: Erythrocyte Sedimentation Rate 84 mm/hr (0-30)
[2024-11-14 21:00] VITALS: BP 103/51; O2SAT 97
[2024-11-14] MEDS: 0.9% Normal Saline (1000mL) 1,000 ML 999 ML IV (21:49)
[2024-11-14 21:51] VITALS: PULSE 73; RESP 18; TEMP 36.2; O2SAT 94
[2024-11-14 23:00] VITALS: RESP 18
== END 2024-11-14 23:30 | disposition short-term general hospital (02) ==
LOC: ED 19:49
PROVIDERS: Emergency Provider Emergency Medicine; PCP Internal Medicine; Referring Provider Emergency Medicine; Visit Provider Emergency Medicine
DX: T84.59XA Infection and inflammatory reaction due to other internal joint prosthesis, initial encounter (principal); J44.9 Chronic obstructive pulmonary disease, unspecified; N28.9 Disorder of kidney and ureter, unspecified; Z95.0 Presence of cardiac pacemaker; E78.5 Hyperlipidemia, unspecified; I10 Essential (primary) hypertension; Z79.899 Other long term (current) drug therapy; K21.9 Gastro-esophageal reflux disease without esophagitis; E03.9 Hypothyroidism, unspecified; Z79.890 Hormone replacement therapy; Z96.612 Presence of left artificial shoulder joint; Z96.653 Presence of artificial knee joint, bilateral; Z90.49 Acquired absence of other specified parts of digestive tract; Z90.710 Acquired absence of both cervix and uterus; S43.015A Anterior dislocation of left humerus, initial encounter
CPT/HCPCS: 71045; 73030; 80053; 85025; 85610; 85652; 85730; 86140; 87040; 96361; 96374; 96375; 99284; A4216; J2405

== ENCOUNTER → 2024-12-06 | Outpatient (CLI) | payer MEDICARE, SELFPAY ==
[2024-12-06 15:58] LABS: Anion Gap 7 (5-15); BUN 42 mg/dL (7-18); Calcium,Total 9.5 mg/dL (8.5-10.1); Chloride 103 mmol/L (98-107); EST Glomerular Filtration Rate 46 mL/min (>60); Est Glom Filt Rate - Afr Amer 55 mL/min (>60); Glucose 146 mg/dL (74-106); Potassium 4.8 mmol/L (3.5-5.1); Sodium Level 132 mmol/L (136-145)
== END | disposition home or self-care (01) ==
PROVIDERS: PCP Internal Medicine
DX: I50.22 Chronic systolic (congestive) heart failure (principal)
CPT/HCPCS: 36415; 80048

== ENCOUNTER → 2024-12-23 | Outpatient (CLI) | payer MEDICARE, SELFPAY ==
[2024-12-23 14:50] LABS: Absolute Lymphocyte Count 1.91 X10^3/uL (0.83-4.51); Basophil# 0.01 X10^3/uL; Basophil% 0.2 % (0-1); Eosinophil# 0.19 X10^3/uL; Eosinophils% 3.2 % (0-5); Hematocrit 34.2 % (37-47); Hemoglobin 10.6 g/dL (12.0-15.0); Lymphocyte # 1.91 X10^3/ul (0.83-4.51); Mean Corpuscular Hgb 28.3 pg (27.0-32.0); Mean Corpuscular Volume 91.2 fL (81-99); Mean Platelet Vol. 9.6 fl (6.2-12.0); Monocyte% 13.4 % (0-10); NRBC Flagged by Analyzer 0 % (0-5); Neutrophil # 3.04 X10^3/uL (2.7-7.7); Neutrophil % 50.9 % (47-70); Platelet Count 247 K/mm3 (150-450); RBC Distribution Width CV 18.4 % (11.6-14.6); RBC Distribution Width SD 61.2 fl (35.1-43.9); Red Blood Count 3.75 M/mm3 (4.2-5.4)
[2024-12-23 15:23] LABS: ALB/GLOB Ratio 0.7 RATIO (0.9-2.4); AST(SGOT) 25 U/L (15-37); Alanine Aminotransfer ALT/SGPT 20 U/L (13-56); Alkaline Phosphatase 156 U/L (45-117); Anion Gap 7 (5-15); BUN 30 mg/dL (7-18); BUN/Creat Ratio 20.4 RATIO (10-20); Calcium,Total 9.5 mg/dL (8.5-10.1); Chloride 101 mmol/L (98-107); Creatinine, Serum 1.47 mg/dL (0.55-1.02); EST Glomerular Filtration Rate 36 mL/min (>60); Est Glom Filt Rate - Afr Amer 44 mL/min (>60); Globulin 4.2 g/dL (2.2-4.2); Glucose 100 mg/dL (74-106); Potassium 4.6 mmol/L (3.5-5.1); Protein, Total 7.2 g/dL (6.4-8.2); Sodium Level 134 mmol/L (136-145)
[2024-12-23 15:24] LABS: BNP,B-Type NATRIURETIC PEPTIDE 186.1 pg/mL (0-100)
== END | disposition home or self-care (01) ==
LOC: LAB 13:33
PROVIDERS: PCP Internal Medicine; Referring Provider Internal Medicine Rheumatology
DX: I50.22 Chronic systolic (congestive) heart failure (principal)
CPT/HCPCS: 36415; 80053; 83880; 85025

== ENCOUNTER → 2025-01-16 | Outpatient (CLI) | payer MEDICARE, SELFPAY ==
[2025-01-16 13:52] LABS: Vitamin B12 454 pg/mL (180-914)
[2025-01-20 13:07] LABS: Free Kappa Light Chains 34.3 mg/L (3.3-19.4); Free Lambda Light Chains 17.8 mg/L (5.7-26.3); Vitamin B1, Thiamine 180.7 nmol/L (66.5-200.0)
== END | disposition home or self-care (01) ==
LOC: MTLAB 09:18
PROVIDERS: PCP Internal Medicine; Referring Provider Psychiatry & Neurology Neurology; Visit Provider Psychiatry & Neurology Neurology
DX: I10 Essential (primary) hypertension (principal); G62.9 Polyneuropathy, unspecified; E03.9 Hypothyroidism, unspecified
CPT/HCPCS: 36415; 82607; 82747; 83883; 84425; 84439; 84443; 85014

== ENCOUNTER → 2025-02-18 | Outpatient (CLI) | payer MEDICARE, SELFPAY | END | disposition home or self-care (01) | LOC: LABSPEC 09:47 | PROVIDERS: PCP Internal Medicine; Referring Provider Internal Medicine; Visit Provider Internal Medicine | DX: R19.7 Diarrhea, unspecified (principal) | CPT/HCPCS: 87493 ==

== ENCOUNTER → 2025-03-04 | Outpatient (CLI) | payer MEDICARE, SELFPAY ==
[2025-03-04 15:50] LABS: Absolute Lymphocyte Count 2.59 X10^3/uL (0.83-4.51); Absolute Neutrophil Count 5.3 X10^3/uL (2.0-7.7); Basophil# 0.04 X10^3/uL; Basophil% 0.4 % (0-1); Eosinophil# 0.28 X10^3/uL; Eosinophils% 3.1 % (0-5); Hematocrit 27.7 % (37-47); Hemoglobin 8.5 g/dL (12.0-15.0); Lymphocyte # 2.59 X10^3/ul (0.83-4.51); Lymphocyte % 28.3 % (19-41); Mean Corp Hgb Conc 30.7 g/dL (32-36); Mean Corpuscular Hgb 28.6 pg (27.0-32.0); Mean Corpuscular Volume 93.3 fL (81-99); Mean Platelet Vol. 9.1 fl (6.2-12.0); Monocyte# 0.97 X10^3/uL; Monocyte% 10.6 % (0-10); NRBC Flagged by Analyzer 0 % (0-5); Neutrophil # 5.25 X10^3/uL (2.7-7.7); Neutrophil % 57.3 % (47-70); Platelet Count 361 K/mm3 (150-450); RBC Distribution Width CV 15.2 % (11.6-14.6); RBC Distribution Width SD 51.9 fl (35.1-43.9); Red Blood Count 2.97 M/mm3 (4.2-5.4); White Blood Count 9.2 K/mm3 (4.4-11.0)
[2025-03-04 16:26] LABS: ALB/GLOB Ratio 1.2 RATIO (0.9-2.4); AST(SGOT) 23 U/L (<=31); Alanine Aminotransfer ALT/SGPT 11 U/L (<=34); Albumin, Serum 3.8 g/dL (3.4-4.8); Alkaline Phosphatase 143 U/L (35-104); Anion Gap 12 (5-15); BUN 37 mg/dL (4-19); Calcium,Total 9.3 mg/dL (7.6-11.0); Chloride 102 mmol/L (98-108); Creatinine, Serum 1.33 mg/dL (0.70-1.20); EST Glomerular Filtration Rate 40 (>60); Globulin 3.1 g/dL (2.2-4.2); Glucose 103 mg/dL (70-99); LDH 169 U/L (84-246); Potassium 5.1 mmol/L (3.3-5.1); Protein, Total 6.9 g/dL (5.9-8.4); Sodium Level 136 mmol/L (133-145); Total Bilirubin 0.37 mg/dL (0.00-1.30)
[2025-03-05 09:34] LABS: Iron Binding Capacity,Total 260 ug/dL (250-450)
[2025-03-05 09:35] LABS: Iron 16 ug/dL (50-170); Iron Binding Capacity,Unsat 244 ug/dL (228-428); PERCENT IRON SATURATION 6.2 % (13-59)
== END | disposition home or self-care (01) ==
LOC: MTLAB 13:15
PROVIDERS: PCP Internal Medicine; Referring Provider Internal Medicine Medical Oncology; Visit Provider Internal Medicine Medical Oncology
DX: L40.59 Other psoriatic arthropathy (principal); C50.912 Malignant neoplasm of unspecified site of left female breast; Z79.899 Other long term (current) drug therapy; L40.8 Other psoriasis; D64.9 Anemia, unspecified
CPT/HCPCS: 36415; 80053; 83540; 83550; 83615; 85025

== ENCOUNTER → 2025-03-10 | Outpatient (CLI) | payer MEDICARE, SELFPAY | END | disposition home or self-care (01) | LOC: MTLAB 15:20 | PROVIDERS: PCP Internal Medicine; Referring Provider Internal Medicine Medical Oncology; Visit Provider Internal Medicine Medical Oncology | DX: D50.8 Other iron deficiency anemias (principal) | CPT/HCPCS: 82274 ==

== ENCOUNTER → 2025-03-14 | Outpatient (CLI) | payer MEDICARE, SELFPAY ==
--- NOTE | 2025-03-14 14:21 | RAD_ITS ---
PROCEDURE: ABDOMEN SINGLE VIEW 03/14/2025 REASON FOR EXAM: DIARRHEA TECHNIQUE: Single view abdomen. COMPARISON: No relevant prior. FINDINGS: Bowel gas: Normal pattern. Calcifications: Unremarkable. Bones: Multilevel spondylosis and degenerative disc disease. Dextrocurvature of the lumbar spine. Other: Metallic clips in the right upper quadrant. Metallic clips project over the left lower pelvis. Cardiac pacer leads. RAD/Abdomen Single View IMPRESSION: No acute abdominal findings. Other nonacute findings detailed above. Reading Location: [facility]
== END | disposition home or self-care (01) ==
LOC: RAD 14:13
PROVIDERS: PCP Internal Medicine
DX: R19.7 Diarrhea, unspecified (principal)
CPT/HCPCS: 74018

== ENCOUNTER → 2025-03-15 | Outpatient (CLI) | payer MEDICARE, SELFPAY ==
[2025-03-18 16:08] LABS: Calprotectin, Stool 494 ug/g (0-120)
== END | disposition home or self-care (01) ==
LOC: LABSPEC 09:37
PROVIDERS: PCP Internal Medicine
DX: R19.7 Diarrhea, unspecified (principal)
CPT/HCPCS: 82653; 83993

== ENCOUNTER → 2025-03-18 | Outpatient (CLI) | payer MEDICARE, SELFPAY ==
[2025-03-21 16:09] LABS: Albumin 3.6 g/dL (2.9-4.4); Alpha-1-Globulins 0.3 g/dL (0.0-0.4); Alpha-2-Globulins 0.7 g/dL (0.4-1.0); Gamma Globulin 1.2 g/dL (0.4-1.8); Immunofixation Urine Comment: (.); Immunoglobulin A 123 mg/dL (64-422); Immunoglobulin G 1082 mg/dL (586-1602); Immunoglobulin M 155 mg/dL (26-217); PROEL- TOTAL PROTEIN 6.6 g/dL (6.0-8.5)
== END | disposition home or self-care (01) ==
LOC: MTLAB 14:42
PROVIDERS: PCP Internal Medicine; Referring Provider Psychiatry & Neurology Neurology; Visit Provider Psychiatry & Neurology Neurology
DX: G62.9 Polyneuropathy, unspecified (principal)
CPT/HCPCS: 36415; 82784; 84165; 86334; 86335

== ENCOUNTER 2025-04-28 12:38 | Outpatient (CLI) | payer MEDICARE, SELFPAY ==
[2025-04-28 15:21] LABS: Absolute Lymphocyte Count 2.47 X10^3/uL (0.83-4.51); Absolute Neutrophil Count 7.9 X10^3/uL (2.0-7.7); Basophil# 0.04 X10^3/uL; Basophil% 0.4 % (0-1); Eosinophil# 0.22 X10^3/uL; Eosinophils% 1.9 % (0-5); Hematocrit 38.6 % (37-47); Hemoglobin 12.2 g/dL (12.0-15.0); Lymphocyte # 2.47 X10^3/ul (0.83-4.51); Lymphocyte % 21.8 % (19-41); Mean Corp Hgb Conc 31.6 g/dL (32-36); Mean Corpuscular Hgb 31.4 pg (27.0-32.0); Mean Corpuscular Volume 99.5 fL (81-99); Mean Platelet Vol. 9.9 fl (6.2-12.0); Monocyte# 0.63 X10^3/uL; Monocyte% 5.6 % (0-10); NRBC Flagged by Analyzer 0 % (0-5); Neutrophil # 7.89 X10^3/uL (2.7-7.7); Neutrophil % 69.6 % (47-70); Platelet Count 265 K/mm3 (150-450); RBC Distribution Width CV 15.5 % (11.6-14.6); RBC Distribution Width SD 57.1 fl (35.1-43.9); Red Blood Count 3.88 M/mm3 (4.2-5.4); White Blood Count 11.3 K/mm3 (4.4-11.0)
[2025-04-28 18:42] LABS: ALB/GLOB Ratio 1.5 RATIO (0.9-2.4); AST(SGOT) 32 U/L (<=31); Alanine Aminotransfer ALT/SGPT 35 U/L (<=34); Albumin, Serum 4.1 g/dL (3.4-4.8); Alkaline Phosphatase 171 U/L (35-104); Anion Gap 12 (5-15); BUN 29 mg/dL (4-19); BUN/Creat Ratio 32.3 RATIO (10-20); Calcium,Total 9.2 mg/dL (7.6-11.0); Carbon Dioxide 25.3 mmol/L (21.0-32.0); Chloride 104 mmol/L (98-108); Creatinine, Serum 0.89 mg/dL (0.70-1.20); EST Glomerular Filtration Rate 65 (>60); Ferritin 943 ng/mL (22-378); Globulin 2.8 g/dL (2.2-4.2); Glucose 91 mg/dL (70-99); Iron 120 ug/dL (50-170); Iron Binding Capacity,Total 275 ug/dL (250-450); Iron Binding Capacity,Unsat 155 ug/dL (228-428); LDH 211 U/L (84-246); Potassium 4.2 mmol/L (3.3-5.1); Protein, Total 6.9 g/dL (5.9-8.4); Sodium Level 141 mmol/L (133-145); Total Bilirubin 0.35 mg/dL (0.00-1.30)
[2025-04-28 18:43] LABS: CRP < 3.00 mg/L (0.0-3.0)
== END 2025-04-28 23:59 | disposition home or self-care (01) ==
LOC: MTLAB 12:38
PROVIDERS: PCP Internal Medicine; Referring Provider Internal Medicine Medical Oncology; Visit Provider Internal Medicine Medical Oncology
DX: N89.8 Other specified noninflammatory disorders of vagina (principal); Z77.018 Contact with and (suspected) exposure to other hazardous metals; R19.7 Diarrhea, unspecified; Z85.3 Personal history of malignant neoplasm of breast; D50.8 Other iron deficiency anemias
CPT/HCPCS: 36415; 80053; 82728; 83540; 83550; 83615; 85025; 86140

== ENCOUNTER → 2025-08-05 | Outpatient (CLI) | payer MEDICARE, SELFPAY ==
[2025-08-05 18:56] LABS: AST(SGOT) 26 U/L (<=31); Alanine Aminotransfer ALT/SGPT 31 U/L (<=34); Albumin, Serum 4.3 g/dL (3.4-4.8); Alkaline Phosphatase 95 U/L (35-104); Anion Gap 14 (5-15); BUN 35 mg/dL (4-19); BUN/Creat Ratio 32.6 RATIO (10-20); Calcium,Total 9.6 mg/dL (7.6-11.0); Carbon Dioxide 22.5 mmol/L (21.0-32.0); Chloride 101 mmol/L (98-108); Globulin 2.7 g/dL (2.2-4.2); Glucose 104 mg/dL (70-99); Potassium 4.4 mmol/L (3.3-5.1); Vitamin B12 262 pg/mL (180-914)
[2025-08-08 12:09] LABS: Vitamin D 1,25-Dihydroxy 33.5 pg/mL (24.8-81.5)
[2025-08-12 15:08] LABS: Folate, Hemolysate Test 540.0 ng/mL (Not Estab.); Folate, RBC (Hct) Test 35.7 % (34.0-46.6); Folates, RBC Test 1513 ng/mL (>498); VITAMIN B6 22.4 ug/L (3.4-65.2); Vitamin B1, Thiamine 172.7 nmol/L (66.5-200.0)
== END | disposition home or self-care (01) ==
LOC: MTLAB 14:09
PROVIDERS: PCP Internal Medicine; Referring Provider Psychiatry & Neurology Neurology; Visit Provider Psychiatry & Neurology Neurology
DX: G31.84 Mild cognitive impairment of uncertain or unknown etiology (principal); G62.9 Polyneuropathy, unspecified; I10 Essential (primary) hypertension; E03.9 Hypothyroidism, unspecified
CPT/HCPCS: 36415; 80053; 82607; 82652; 82747; 84207; 84425; 84439; 84443; 85014; 86335

== ENCOUNTER → 2025-08-21 | Outpatient (CLI) | payer MEDICARE, SELFPAY ==
--- NOTE | 2025-08-21 15:05 | CT_ITS ---
PROCEDURE: BRAIN/HEAD WITHOUT CONTRAST 08/21/2025 REASON FOR EXAM: MILD COGNITIVE IMPAIRMENT TECHNIQUE: Procedure Code: CTBR Modality: CT Procedure: BRAIN/HEAD WITHOUT CONTRAST Coronal and Sagittal reconstruction series were provided. One or more dose reduction techniques were used (e.g., Automated exposure control, adjustment of the mA and/or kV according to patient size, use of iterative reconstruction technique. COMPARISON: 11/09/2021. FINDINGS: No acute intracranial hemorrhage. No midline shift. The ventricles are normal in size and configuration. No extra-axial fluid collection is identified. No fracture. The calvarium is intact. The visualized paranasal sinuses and mastoid air cells are clear. CT/Brain/Head without Contrast IMPRESSION: No acute intracranial CT abnormality. Reading Location: [id number]
== END | disposition home or self-care (01) ==
LOC: CT 14:58
PROVIDERS: PCP Internal Medicine; Referring Provider Psychiatry & Neurology Neurology; Visit Provider Psychiatry & Neurology Neurology
DX: G31.84 Mild cognitive impairment of uncertain or unknown etiology (principal)
CPT/HCPCS: 70450

== ENCOUNTER → 2025-08-21 | Outpatient (CLI) | payer MEDICARE, SELFPAY ==
[2025-08-21 15:12] LABS: AST(SGOT) 29 U/L (<=31); Alanine Aminotransfer ALT/SGPT 23 U/L (<=34); Albumin, Serum 4.0 g/dL (3.4-4.8); Alkaline Phosphatase 94 U/L (35-104); Anion Gap 15 (5-15); BUN 21 mg/dL (4-19); BUN/Creat Ratio 17.6 RATIO (10-20); Calcium,Total 9.8 mg/dL (7.6-11.0); Carbon Dioxide 24.6 mmol/L (21.0-32.0); Chloride 99 mmol/L (98-108); Globulin 2.9 g/dL (2.2-4.2); Glucose 113 mg/dL (70-99); Magnesium 1.8 mg/dL (1.5-2.2); Potassium 4.4 mmol/L (3.3-5.1); Pro- Brain NATRIURETIC PEPTIDE 444 pg/mL (<=1800)
== END | disposition home or self-care (01) ==
PROVIDERS: PCP Internal Medicine; Referring Provider Internal Medicine; Visit Provider Internal Medicine
DX: I42.8 Other cardiomyopathies (principal); I51.89 Other ill-defined heart diseases; R10.A0 Flank pain, unspecified side; R39.198 Other difficulties with micturition
CPT/HCPCS: 36415; 80053; 81001; 83735; 83880; 87077; 87086; 87088; 87186

== ENCOUNTER → 2025-08-21 | Outpatient (CLI) | payer MEDICARE, SELFPAY ==
[2025-08-21 11:06] LABS: Mucous, Urine 0 SEEN /hpf (<or=2+)
[2025-08-21 11:12] LABS: Color, Urine Yellow (Yellow); Glucose, Dipstick 250 mg/dl (Normal); Ketone-Dipstick Negative (Negative); Leukocyte Esterase-Dipstick 500 /ul (Negative); Nitrite-Dipstick Positive (Negative); Occult Blood-Urine 10 /ul (Negative); Protein-Dipstick 15 mg/dl (Negative); Specific Gravity, Urine 1.010 (1.002-1.030); Urine Bilirubin Dipstick Negative (Negative)
[2025-08-21 11:26] LABS: Red Blood Cells-Urine 0-5 SEEN /hpf (0-5); Squamous Epithelial Cells - UA 5-10 SEEN /hpf (5-10)
== END | disposition home or self-care (01) ==
PROVIDERS: PCP Internal Medicine; Referring Provider Internal Medicine; Visit Provider Internal Medicine
DX: R10.A0 Flank pain, unspecified side (principal); R39.198 Other difficulties with micturition
CPT/HCPCS: 81001; 87086

== ENCOUNTER → 2025-09-01 | Outpatient (CLI) | payer MEDICARE, SELFPAY ==
[2025-09-01 15:38] LABS: Anion Gap 13 (5-15); BUN 24 mg/dL (4-19); BUN/Creat Ratio 19.3 RATIO (10-20); Calcium,Total 9.6 mg/dL (7.6-11.0); Carbon Dioxide 25.8 mmol/L (21.0-32.0); Chloride 98 mmol/L (98-108); Glucose 96 mg/dL (70-99); Potassium 4.6 mmol/L (3.3-5.1); Pro- Brain NATRIURETIC PEPTIDE 749 pg/mL (<=1800)
== END | disposition home or self-care (01) ==
LOC: MTLAB 13:24
PROVIDERS: PCP Internal Medicine; Referring Provider Physician Assistant; Visit Provider Physician Assistant
DX: I50.22 Chronic systolic (congestive) heart failure (principal)
CPT/HCPCS: 36415; 80048; 83880

== ENCOUNTER → 2025-10-09 | Outpatient (CLI) | payer MEDICARE, SELFPAY ==
[2025-10-09 17:41] LABS: Hematocrit 35.9 % (37-47); Hemoglobin 11.8 g/dL (12.0-15.0); Immature Granulocytes Count 0.020 X10^3/uL (0.0-0.0); Mean Corp Hgb Conc 32.9 g/dL (32-36); Mean Corpuscular Volume 102.0 fL (81-99); Mean Platelet Vol. 9.2 fl (6.2-12.0); NRBC Flagged by Analyzer 0 % (0-5); Platelet Count 233 K/mm3 (150-450); RBC Distribution Width CV 12.8 % (11.6-14.6); RBC Distribution Width SD 47.4 fl (35.1-43.9); Red Blood Count 3.52 M/mm3 (4.2-5.4); White Blood Count 8.2 K/mm3 (4.4-11.0)
[2025-10-09 18:08] LABS: AST(SGOT) 32 U/L (<=31); Alanine Aminotransfer ALT/SGPT 15 U/L (<=34); Albumin, Serum 4.2 g/dL (3.4-4.8); Alkaline Phosphatase 94 U/L (35-104); Anion Gap 13 (5-15); BUN 28 mg/dL (4-19); BUN/Creat Ratio 24.3 RATIO (10-20); CRP 5.04 mg/L (0.0-3.0); Calcium,Total 9.8 mg/dL (7.6-11.0); Carbon Dioxide 25.9 mmol/L (21.0-32.0); Chloride 101 mmol/L (98-108); Globulin 2.8 g/dL (2.2-4.2); Glucose 106 mg/dL (70-99); Potassium 4.5 mmol/L (3.3-5.1)
== END | disposition home or self-care (01) ==
LOC: MTLAB 15:31
PROVIDERS: PCP Internal Medicine; Referring Provider Internal Medicine Rheumatology; Visit Provider Internal Medicine Rheumatology
DX: L40.59 Other psoriatic arthropathy (principal); I50.23 Acute on chronic systolic (congestive) heart failure; Z79.899 Other long term (current) drug therapy
CPT/HCPCS: 36415; 80053; 85025; 85652; 86140